=== PATIENT | female | born 1975 | race African-American/Black ===

== ENCOUNTER 2016-10-09 14:08 | Inpatient (IN) | payer OTHER ==
[2016-10-09] MEDS ORDERED: ONDANSETRON 4 MG TAB.RAPDIS PO ONE (14:20)
--- NOTE | 2016-10-09 14:20 | ER Document Report ---
ED Medical Screen (RME) - General Chief Complaint: Abdominal Pain Stated Complaint: ABDOMINAL PAIN Notes: generalized abdominal pain with sudden onset this afternoon. denies nausea, vomiting last BM today before pain onset admits to etoh and cocaine use but not cooperating with interview due to pain TRAVEL OUTSIDE OF THE [place] IN LAST 30 DAYS: No - Related Data Allergies/Adverse Reactions: amoxicillin [From Augmentin] Allergy (Verified 09/30/16 03:43) Generalized Itching cephalexin [From Keflex] Allergy (Verified 09/03/16 09:37) clavulanic acid [From Augmentin] Allergy (Verified 09/30/16 03:43) sulfamethoxazole [From Septra] Allergy (Verified 09/03/16 09:37) trimethoprim [From Septra] Allergy (Verified 09/03/16 09:37) Past Medical History - Past Medical History Cardiac Medical History: Reports: Hx Hypertension GI Medical History: Reports: Hx Gastroesophageal Reflux Disease Musculoskeltal Medical History: Reports Hx Arthritis - lupus Past Surgical History: Reports: Hx Section - 3, Other - Previous wound debridements - Immunizations Immunizations up to date: Yes Hx Diphtheria, Pertussis, Tetanus Vaccination: Yes
[2016-10-09] MEDS ORDERED: ROCURONIUM BROMIDE INJ 50 MG/5 ML VIAL IV ONE (14:29)
[2016-10-09] MEDS ORDERED: PHENYLEPHRINE HCL INJ/PF 10 MG/1 ML SDV ONE (14:29)
[2016-10-09] MEDS ORDERED: SUCCINYLCHOLINE CHLORIDE INJ 200 MG/10 ML VIAL ONE (14:29)
[2016-10-09] MEDS ORDERED: NORMAL SALINE 1000 ML 1,000 ML IV ONE (14:51)
[2016-10-09] MEDS ORDERED: ONDANSETRON HCL INJ/PF 4 MG/2 ML SDV IV ONE (14:52)
--- NOTE | 2016-10-09 14:57 | ER Document Report ---
ED GI/ - General Chief Complaint: Abdominal Pain Stated Complaint: ABDOMINAL PAIN Time seen by provider: 14:52 Mode of Arrival: Ambulatory Information source: Patient Notes: Patient is a 41-year-old female presenting to the emergency department chief complaint of abdominal pain. Patient states it began just prior to coming to the emergency department. Patient denies travel history trauma history or any sick contacts. Patient does not believe it's secondary to bad food. Patient reports nausea but no vomiting no diarrhea. Patient is moderately to severely discomforted and is not cooperative with exam secondary to pain. TRAVEL OUTSIDE OF THE [place] IN LAST 30 DAYS: No - HPI Patient complains to provider of: Abdominal pain Onset: Just prior to arrival Timing/Duration: Sudden Quality of pain: Throbbing Severity at maximum: Moderate Severity in ED: Moderate Context: denies: Bad food, Lifting, Out of the country travel, , Recent trauma, Other Location: Epigastric Vaginal bleeding (Compared to normal period): None Associated symptoms: Lightheaded, Loss of appetite, Nausea Exacerbated by: Movement Relieved by: Denies Similar symptoms previously: No Recently seen / treated by doctor: No - Related Data Allergies/Adverse Reactions: amoxicillin [From Augmentin] Allergy (Verified 09/30/16 03:43) Generalized Itching cephalexin [From Keflex] Allergy (Verified 09/03/16 09:37) clavulanic acid [From Augmentin] Allergy (Verified 09/30/16 03:43) sulfamethoxazole [From Septra] Allergy (Verified 09/03/16 09:37) trimethoprim [From Septra] Allergy (Verified 09/03/16 09:37) Past Medical History - General Information source: Patient - Social History Smoking Status: Current Every Day Smoker Cigarette use (# per day): Yes Chew tobacco use (# tins/day): No Smoking Education Provided: Yes - less than 3 minutes Frequency of alcohol use: Social Drug Abuse: Cocaine Family History: Hypertension Patient has suicidal ideation: No Patient has homicidal ideation: No - Past Medical History Cardiac Medical History: Reports: Hx Hypertension Renal/ Medical History: Reports: Hx End Stage Renal Disease GI Medical History: Reports: Hx Gastroesophageal Reflux Disease Musculoskeltal Medical History: Reports Hx Arthritis - lupus Past Surgical History: Reports: Hx Section - 3, Other - Previous wound debridements - Immunizations Immunizations up to date: Yes Hx Diphtheria, Pertussis, Tetanus Vaccination: Yes Review of Systems - Review of Systems Constitutional: No symptoms reported EENT: No symptoms reported Cardiovascular: No symptoms reported Respiratory: No symptoms reported Gastrointestinal: See HPI, Abdominal pain, Nausea. denies: Diarrhea, Vomiting Genitourinary: No symptoms reported Female Genitourinary: No symptoms reported Musculoskeletal: No symptoms reported Skin: No symptoms reported Hematologic/Lymphatic: No symptoms reported Neurological/Psychological: No symptoms reported -: Yes All other systems reviewed and negative Physical Exam - Vital signs Vitals: Temp Pulse Resp BP Pulse Ox 97.5 F 101 H 24 H 111/69 98 10/09/16 14:12 10/09/16 14:12 10/09/16 14:12 10/09/16 14:12 10/09/16 14:12 - Notes Notes: General: Patient is a 41-year-old female presenting to the emergency department chief complaint of severe abdominal pain that began just prior to presentation to the emergency department. HEENT: Normocephalic atraumatic pupils equal round reactive to light, oropharynx is patent moist mucous membranes Neck: Trachea is midline full range of motion Chest: Lungs are clear to auscultation bilaterally Cardiac: Regular rhythm and rate no gallops murmurs or rubs Abdominal: Soft moderately tender to the epigastrium bowel sounds are present but decreased, there is positive guarding, bowel sounds present Extremities: Active full range of motion x4 Skin: Warm dry intact Neurologic: Cranial nerves II through XII are grossly intact Course - Re-evaluation Re-evalutation: 10/09/16 18:04 On reevaluation patient still complaining of abdominal pain. CT with IV contrast and 20 mg by mouth Bentyl have been ordered. 10/09/16 19:03 Was contacted approximately 10 minutes ago by radiologist informed patient has perforated bowel with free air and free fluid in the abdomen. Patient did lose the IV and CAT scan and thus will have another IV placed request by surgeon for Zosyn 3.375 g IV. Patient receive 1 mg of Dilaudid IV for pain management Spoke with the surgeon who is agreeable with taking the patient to the OR.. - Vital Signs Vital signs: Temp Pulse Resp BP Pulse Ox 98.6 F 111 H 26 H 140/84 H 97 10/09/16 15:25 10/09/16 15:25 10/09/16 15:25 10/09/16 15:25 10/09/16 15:25 - Laboratory Result Diagrams: 10/09/16 15:25 10/09/16 15:25 Laboratory results interpreted by me: 10/09/16 10/09/16 10/09/16 15:25 15:25 16:04 WBC 2.8 L Hgb 9.8 L Hct 30.1 L MCH 26.1 L RDW 19.0 H Seg Neuts % (Manual) 21 L Band Neutrophils % 29 H Abs Neuts (Manual) 1.4 L Sodium 136.9 L Carbon Dioxide 20 L Urine Protein 30 H - Diagnostic Test Radiology reviewed: Reports reviewed Critical Care Note - Critical Care Note Total time excluding time spent on procedures (mins): 35 Comments: Please allow 35 minutes critical care time exclusive of separately billable procedures for multiple re-evaluations medical management and consultation with patient family members and/or external providers in care for this ill patient Discharge - Discharge Clinical Impression: Perforated bowel, Crack cocaine use SLE (systemic lupus erythematosus) Qualifiers: Systemic lupus erythematosus type: unspecified Systemic lupus erythematosus organ involvement: unspecified Qualified Code(s): M32.9 - Systemic lupus erythematosus, unspecified Condition: Serious Disposition: ADMITTED INPATIENT Admitting Provider: Surgicalist Unit Admitted: OR
[2016-10-09] MEDS ORDERED: MORPHINE SULFATE 10 MG/ML INJ IV ONE (15:36)
[2016-10-09 15:54] LABS: PROTHROMBIN TIME 12.6 SEC (11.4-15.4)
[2016-10-09 15:58] LABS: HEMATOCRIT 30.1 % (36.0-47.0); HEMOGLOBIN 9.8 g/dL (12.0-15.5); HGB HCT DIFFERENCE -0.7; MEAN CORPUSCULAR HEMOGLOBIN 26.1 pg (27.0-33.4); MEAN CORPUSCULAR HGB CONC 32.6 g/dL (32.0-36.0); MEAN CORPUSCULAR VOLUME 80 fl (80-97); RED BLOOD COUNT 3.75 10^6/uL (3.72-5.28); WHITE BLOOD COUNT 2.8 10^3/uL (4.0-10.5)
[2016-10-09 16:04] LABS: ALANINE AMINOTRANSFERASE 46 U/L (9-52); ALBUMIN 3.7 g/dL (3.5-5.0); ALKALINE PHOSPHATASE 102 U/L (38-126); ANION GAP 11 (5-19); ASPARTATE AMINO TRANSFERASE 24 U/L (14-36); BILIRUBIN,TOTAL 0.8 mg/dL (0.2-1.3); BLOOD UREA NITROGEN 12 mg/dL (7-20); CALCIUM 8.7 mg/dL (8.4-10.2); CARBON DIOXIDE 20 mmol/L (22-30); CHLORIDE 106 mmol/L (98-107); CREATININE RESULT 0.62 mg/dL (0.52-1.25); GLUCOSE 76 mg/dL (75-110); LIPASE 142.8 U/L (23-300); SODIUM 136.9 mmol/L (137-145); TOTAL PROTEIN 7.9 g/dL (6.3-8.2)
[2016-10-09 16:05] LABS: ALCOHOL < 10 mg/dL (NONE DETECTED)
[2016-10-09 16:23] LABS: APPEARANCE,URINE CLEAR; BILIRUBIN,URINE NEGATIVE (NEGATIVE); GLUCOSE, URINE NEGATIVE (NEGATIVE); KETONES,URINE NEGATIVE (NEGATIVE); LEUKOCYTE ESTERASE,URINE NEGATIVE (NEGATIVE); NITRITE,URINE NEGATIVE (NEGATIVE); PROTEIN,URINE 30 mg/dL (NEGATIVE); URINE SPECIFIC GRAVITY 1.017; UROBILINOGEN,URINE NEGATIVE mg/dL (<2.0)
[2016-10-09 16:25] LABS: BASOPHILS % (MANUAL) 0 % (0-2); EOSINOPHILS % (MANUAL) 1 % (0-6); LYMPHOCYTES % (MANUAL) 41 % (13-45); TOTAL CELLS COUNTED 100
[2016-10-09 16:36] LABS: SMUDGE CELLS PRESENT; TOXIC GRANULATION 1+
[2016-10-09 16:37] LABS: ANISOCYTOSIS 2+; PLATELET CLUMPS PRESENT; ROULEAUX 1+; TARGET CELLS 1+; TEAR DROP CELLS SLIGHT
[2016-10-09 16:37] LABS: URINE BARBITURATES SCREEN NEGATIVE; URINE METHADONE SCREEN NEGATIVE; URINE PHENCYCLIDINE SCREEN NEGATIVE
[2016-10-09 16:40] LABS: BAND NEUTROPHILS % (MANUAL) 29 % (3-5)
[2016-10-09] MEDS ORDERED: DICYCLOMINE HCL 20 MG TABLET PO ONE (17:59)
[2016-10-09] MEDS ORDERED: PIPERACILLIN/TAZOBACTAM 3.375 GM VIAL IV ONE (19:01)
[2016-10-09] MEDS ORDERED: HYDROMORPHONE HCL INJ/PF 2 MG/ML AMPULE IV ONE (19:01)
[2016-10-09] MEDS ORDERED: MIDAZOLAM 2 MG/2 ML INJ ONE (20:38)
[2016-10-09] MEDS ORDERED: PROPOFOL INJ 200 MG/20 ML VIAL IV ONE (20:38)
[2016-10-09] MEDS ORDERED: FENTANYL CITRATE INJ/PF 250 MCG/5 ML AMPULE ONE (20:38)
[2016-10-09] MEDS ORDERED: MORPHINE SULFATE 10 MG/ML INJ ONE ×2 (20:38→23:07)
[2016-10-09] MEDS ORDERED: PROPOFOL 100 ML IV ONE (22:41)
[2016-10-09] MEDS ORDERED: PROMETHAZINE HCL 25 MG TABLET PO PRN (22:58)
[2016-10-09] MEDS ORDERED: POTASSI CL 20 MEQ/D5-1/2NS 1L 1,000 ML IV PRN (22:58)
[2016-10-09] MEDS ORDERED: PHARMACY COMMUNICATION ORDER MC NR (23:00)
[2016-10-09] MEDS ORDERED: MIDAZOLAM 2 MG/2 ML INJ IV PRN (23:06)
[2016-10-09] MEDS ORDERED: NORMAL SALINE 100 ML with PANTOPRAZOLE SODIUM 80 MG IV PRN ×2 (23:09)
[2016-10-09] MEDS ORDERED: PANTOPRAZOLE SODIUM 80 MG in NORMAL SALINE 100 ML IV ONE (23:09)
[2016-10-10 00:36] LABS: HEMATOCRIT 30.1 % (36.0-47.0); HEMOGLOBIN 9.7 g/dL (12.0-15.5); MEAN CORPUSCULAR HEMOGLOBIN 25.7 pg (27.0-33.4); MEAN CORPUSCULAR HGB CONC 32.4 g/dL (32.0-36.0); MEAN CORPUSCULAR VOLUME 79 fl (80-97); RED BLOOD COUNT 3.79 10^6/uL (3.72-5.28); RED CELL DISTRIBUTION WIDTH 19.1 % (11.5-14.0); WHITE BLOOD COUNT 3.6 10^3/uL (4.0-10.5)
[2016-10-10 01:06] LABS: BAND NEUTROPHILS % (MANUAL) 40 % (3-5); BASOPHILS % (MANUAL) 0 % (0-2); EOSINOPHILS % (MANUAL) 0 % (0-6); LYMPHOCYTES % (MANUAL) 20 % (13-45); TOTAL CELLS COUNTED 100
[2016-10-10 01:07] LABS: TOXIC VACUOLATION PRESENT
[2016-10-10 01:08] LABS: TOXIC GRANULATION 1+
[2016-10-10 01:09] LABS: ACANTHOCYTES SLIGHT; ANISOCYTOSIS 2+; HYPOCHROMASIA SLIGHT; MICROCYTOSIS SLIGHT; TARGET CELLS 2+; TEAR DROP CELLS 1+
[2016-10-10 01:10] LABS: PLATELET CLUMPS PRESENT
[2016-10-10] MEDS ORDERED: PIPERACILLIN/TAZOBACTAM 3.375 GM VIAL IV ONE ×2 (01:15→01:30)
[2016-10-10] MEDS: MORPHINE SULFATE 10 MG/ML INJ IV PRN ×8 (01:46→23:50)
[2016-10-10] MEDS ORDERED: PANTOPRAZOLE SODIUM 40 MG VIAL IV PRN (01:48)
[2016-10-10] MEDS ORDERED: PANTOPRAZOLE SODIUM 80 MG in NORMAL SALINE 100 ML IV ONE (02:00)
[2016-10-10] MEDS ORDERED: PROPOFOL 100 ML IV ONE (02:20)
[2016-10-10] MEDS ORDERED: NORMAL SALINE 100 ML IV PRN (02:33)
[2016-10-10] MEDS ORDERED: INFLUENZA ADLT QUAD (36MOS+) 2016-17 VAC 0.5 ML SYR IM PRN (04:41)
[2016-10-10] MEDS ORDERED: DEXTROSE 5%-WATER 250 ML with NOREPINEPHRINE BITARTRATE 4 MG IV PRN ×2 (06:06)
--- NOTE | 2016-10-10 06:22 | PDOC CONSULTATION ---
Consultation Consult Date: 10/09/16 Attending physician:: SURGICAL SURGICALIST MD Consult reason:: Cocaine and narcotic dependence, duodenal ulcer History of Present Illness Admission Date/PCP: 10/09/16 22:50 Patient complains of: Patient presented to the ER with abdominal pain now postop intubated and sedated History of Present Illness: TAYLOR MACKEY is a 41 year old female with history of polysubstance abuse, vasculitis and chronic extensive nonhealing lower extremity leg ulcers. Patient presents to the emergency room with abdominal pain with in the hour of onset. Labs reveal bandemia CT abdomen revealed free air in the peritoneum. In the OR she's found to have a perforated duodenal ulcer. In the ICU she is intubated sedated and appears comfortable, there are no friends or family for history and subsequently is obtained by the record. Past Medical History Cardiac Medical History: Reports: Hypertension GI Medical History: Reports: Gastroesophageal Reflux Disease Musculoskeltal Medical History: Reports: Arthritis - lupus Psychiatric Medical History: Reports: Substance Abuse Hematology: Reports: Anemia Past Surgical History Past Surgical History: Reports: Section - 3, Other - Previous wound debridements Social History Smoking Status: Current Every Day Smoker Frequency of Alcohol Use: Heavy - Drinks beer daily Hx Recreational Drug Use: Yes Drugs: Cocaine Hx Prescription Drug Abuse: No - Advance Directive Resuscitation Status: Full Code Family History Family History: Hypertension Parental Family History Reviewed: Yes Children Family History Reviewed: Yes Sibling(s) Family History Reviewed.: Yes Medication/Allergy Home Medications: Hydrocodone/Acetaminophen [Hydrocodon-Acetaminophen 5-325] 1 tab PO Q4 09/17/16 Thiamine Mononitrate [Vitamin B-1] 100 mg PO DAILY 09/17/16 Duloxetine HCl [Cymbalta] 60 mg PO DAILY #30 capsule. 09/29/16 Folic Acid [Folvite 1 mg Tablet] 1 mg PO DAILY #30 tablet 09/29/16 Hydralazine HCl [Apresoline 50 mg Tablet] 50 mg PO Q8 #90 tablet 09/29/16 Losartan Potassium [Cozaar 50 mg Tablet] 100 mg PO DAILY #30 tablet 09/29/16 Oxycodone HCl/Acetaminophen [Percocet 10-325 Mg Tablet] 1 each PO Q4HP PRN #20 tablet 09/29/16 Prednisone [Deltasone 10 mg Tablet] 10 mg PO ASDIR PRN #10 tablet 09/29/16 Allergies/Adverse Reactions: amoxicillin [From Augmentin] Allergy (Verified 10/09/16 19:42) Generalized Itching cephalexin [From Keflex] Allergy (Verified 10/09/16 19:42) clavulanic acid [From Augmentin] Allergy (Verified 10/09/16 19:42) sulfamethoxazole [From Septra] Allergy (Verified 10/09/16 19:42) trimethoprim [From Septra] Allergy (Verified 10/09/16 19:42) Review of Systems ROS unobtainable: Due to endotracheal tube Physical Exam Vital Signs: Temp Pulse Resp BP Pulse Ox 98.9 F 104 H 14 98/68 L 100 10/10/16 00:13 10/10/16 00:13 10/10/16 01:17 10/10/16 04:47 10/10/16 04:47 Intake & Output 10/08/16 10/09/16 10/10/16 11:59 11:59 11:59 Output Total 600 Balance -600 General appearance: PRESENT: no acute distress Head exam: PRESENT: atraumatic, normocephalic Eye exam: PRESENT: conjunctiva pink, EOMI, PERRLA. ABSENT: scleral icterus Ear exam: PRESENT: normal external ear exam Mouth exam: PRESENT: moist, tongue midline Teeth exam: PRESENT: poor dentation Neck exam: ABSENT: carotid bruit, JVD, lymphadenopathy, thyromegaly Respiratory exam: PRESENT: clear to auscultation rei. ABSENT: rales, rhonchi, wheezes Pulses: PRESENT: normal dorsalis pedis pul Vascular exam: PRESENT: normal capillary refill GI/Abdominal exam: PRESENT: distended, firm, hypoactive bowel sounds Rectal exam: PRESENT: deferred Extremities exam: PRESENT: other - Large bilateral lower extremity chronic ulcers right leg 13 x 13 with clean borders but eroded tendons visible, left leg with near circumferential 7 x 5 cm ulcer with clean borders and visible tendons Musculoskeletal exam: PRESENT: other - Large bilateral lower extremity chronic ulcers right leg 13 x 13 with clean borders but eroded tendons visible, left leg with near circumferential 7 x 5 cm ulcer with clean borders and visible tendons Neurological exam: PRESENT: other - Intubated and sedated Skin exam: PRESENT: other - Large bilateral lower extremity chronic ulcers right leg 13 x 13 with clean borders but eroded tendons visible, left leg with near circumferential 7 x 5 cm ulcer with clean borders and visible tendons Results Laboratory Results: 10/09/16 23:50 10/09/16 23:50 WBC 3.6 L RBC 3.79 Hgb 9.7 L Hct 30.1 L MCV 79 L MCH 25.7 L MCHC 32.4 RDW 19.1 H Plt Count 212 Seg Neutrophils % Not Reportable Lymphocytes % Not Reportable Monocytes % Not Reportable Eosinophils % Not Reportable Basophils % Not Reportable Absolute Neutrophils Not Reportable Absolute Lymphocytes Not Reportable Absolute Monocytes Not Reportable Absolute Eosinophils Not Reportable Absolute Basophils Not Reportable Impressions: Chest X-Ray 10/09/16 00:00 IMPRESSION: Bibasilar consolidation. Small bilateral pleural effusions. Endotracheal tube tip overlies the mid trachea. Right IJ central venous catheter tip overlies the right atrium. Nasogastric catheter overlies the body of the stomach. Drainage catheter is present over the epigastric region. Abdomen CT 10/09/16 18:02 IMPRESSION: Intraperitoneal gas is present across the upper abdomen as well as in the gallbladder fossa. Diffuse inflammatory changes and moderately large amount of free fluid are present throughout the abdomen and pelvis. Assessment & Plan - Diagnosis (1) Duodenal ulcer Is this a current diagnosis for this admission?: YesPlan: Unclear history with postop repair I'll initiate IV Protonix bolus followed by 72 hour protocol (2) Crack cocaine use Is this a current diagnosis for this admission?: YesPlan: Suggest benzodiazepine sedation avoiding beta mary (3) Perforated bowel Is this a current diagnosis for this admission?: YesPlan: Given sepsis by hypotension and bandemia strongly suggest coverage of GI daron with Carbapenem, cultures and repeat labs - Time Time Spent: 50 to 70 Minutes
[2016-10-10 06:26] LABS: HEMATOCRIT 27.9 % (36.0-47.0); HEMOGLOBIN 9.2 g/dL (12.0-15.5); HGB HCT DIFFERENCE -0.3; MEAN CORPUSCULAR HGB CONC 32.8 g/dL (32.0-36.0); MEAN CORPUSCULAR VOLUME 79 fl (80-97); RED BLOOD COUNT 3.53 10^6/uL (3.72-5.28); RED CELL DISTRIBUTION WIDTH 19.5 % (11.5-14.0); WHITE BLOOD COUNT 6.5 10^3/uL (4.0-10.5)
[2016-10-10 06:41] LABS: ALANINE AMINOTRANSFERASE 32 U/L (9-52); ALBUMIN 2.4 g/dL (3.5-5.0); ALKALINE PHOSPHATASE 54 U/L (38-126); ANION GAP 7 (5-19); ASPARTATE AMINO TRANSFERASE 22 U/L (14-36); BILIRUBIN,TOTAL 0.4 mg/dL (0.2-1.3); BLOOD UREA NITROGEN 10 mg/dL (7-20); CALCIUM 7.3 mg/dL (8.4-10.2); CARBON DIOXIDE 21 mmol/L (22-30); CHLORIDE 109 mmol/L (98-107); CREATININE RESULT 0.57 mg/dL (0.52-1.25); GLUCOSE 87 mg/dL (75-110); PHOSPHORUS 4.5 mg/dL (2.5-4.5); POTASSIUM 3.9 mmol/L (3.6-5.0); SODIUM 136.6 mmol/L (137-145); TOTAL PROTEIN 5.4 g/dL (6.3-8.2)
[2016-10-10] MEDS ORDERED: NOREPINEPHRINE BITARTRATE INJ/PF 4 MG/4 ML SDV IV PRN (06:49)
[2016-10-10 06:50] LABS: MAGNESIUM 1.1 mg/dL (1.6-2.3)
[2016-10-10] MEDS: PROPOFOL 100 ML IV SCH ×2 (07:24→10:31)
[2016-10-10] MEDS: MAGNESIUM SULFATE/D5W 100 ML IV SCH ×2 (08:12→09:35)
[2016-10-10] MEDS: ENOXAPARIN SODIUM INJ 30 MG/0.3 ML DISP.SYRIN SUBCUT SCH (08:13)
[2016-10-10] MEDS: PIPERACILLIN SODIUM/TAZOBACTAM 3.375 GM in NORMAL SALINE 100 ML IV SCH ×2 (09:36→17:48)
--- NOTE | 2016-10-10 09:58 | PDOC PROGRESS REPORT ---
Subjective Progress Note for:: 10/10/16 Subjective:: Patient is intubated but is able to nod yes or no. She reports that she is not having abdominal pain. Physical Exam Vital Signs: Temp Pulse Resp BP Pulse Ox 99.0 F 103 H 14 114/78 100 10/10/16 08:00 10/10/16 06:54 10/10/16 01:17 10/10/16 08:16 10/10/16 08:50 Intake & Output 10/09/16 10/10/16 10/11/16 06:59 06:59 06:59 Output Total 670 150 Balance -670 -150 Weight 58.8 kg General appearance: PRESENT: no acute distress Eye exam: PRESENT: conjunctiva pink Mouth exam: PRESENT: other - ET tube in place Neck exam: ABSENT: JVD Respiratory exam: PRESENT: clear to auscultation rei. ABSENT: rales, rhonchi, wheezes Cardiovascular exam: PRESENT: RRR. ABSENT: diastolic murmur, rubs, systolic murmur GI/Abdominal exam: PRESENT: other - Surgical dressing in place in the midline Rectal exam: PRESENT: deferred Extremities exam: ABSENT: calf tenderness, clubbing, pedal edema Neurological exam: PRESENT: alert, awake Psychiatric exam: PRESENT: appropriate affect Skin exam: PRESENT: dry, intact, warm. ABSENT: cyanosis, rash Results Laboratory Results: 10/10/16 06:18 10/10/16 06:18 10/09/16 10/10/16 10/10/16 23:50 06:18 06:18 WBC 3.6 L 6.5 RBC 3.79 3.53 L Hgb 9.7 L 9.2 L Hct 30.1 L 27.9 L MCV 79 L 79 L MCH 25.7 L 26.0 L MCHC 32.4 32.8 RDW 19.1 H 19.5 H Plt Count 212 201 Seg Neutrophils % Not Reportable Lymphocytes % Not Reportable Monocytes % Not Reportable Eosinophils % Not Reportable Basophils % Not Reportable Absolute Neutrophils Not Reportable Absolute Lymphocytes Not Reportable Absolute Monocytes Not Reportable Absolute Eosinophils Not Reportable Absolute Basophils Not Reportable Sodium 136.6 L Potassium 3.9 Chloride 109 H Carbon Dioxide 21 L Anion Gap 7 BUN 10 Creatinine 0.57 Est GFR ( Amer) > 60 Est GFR (Non-Af Amer) > 60 Glucose 87 Calcium 7.3 L Phosphorus 4.5 Magnesium 1.1 L* Total Bilirubin 0.4 AST 22 ALT 32 Alkaline Phosphatase 54 Total Protein 5.4 L Albumin 2.4 L Impressions: Chest X-Ray 10/09/16 00:00 IMPRESSION: Bibasilar consolidation. Small bilateral pleural effusions. Endotracheal tube tip overlies the mid trachea. Right IJ central venous catheter tip overlies the right atrium. Nasogastric catheter overlies the body of the stomach. Drainage catheter is present over the epigastric region. Abdomen CT 10/09/16 18:02 IMPRESSION: Intraperitoneal gas is present across the upper abdomen as well as in the gallbladder fossa. Diffuse inflammatory changes and moderately large amount of free fluid are present throughout the abdomen and pelvis. Assessment & Plan - Diagnosis (1) Hypotension Is this a current diagnosis for this admission?: YesPlan: The patient initially had some hypotension and vasopressors were ordered but were not started. Her blood pressure has remained stable. (2) Perforated bowel Is this a current diagnosis for this admission?: YesPlan: This was secondary to a duodenal ulcer which was surgically repaired. (3) Duodenal ulcer Is this a current diagnosis for this admission?: YesPlan: Patient had surgery last night for repair of this (4) SLE (systemic lupus erythematosus) Qualifiers: Systemic lupus erythematosus type: unspecified Systemic lupus erythematosus organ involvement: unspecified Qualified Code(s): M32.9 - Systemic lupus erythematosus, unspecified Is this a current diagnosis for this admission?: YesPlan: Patient has complications with vasculitis of her legs. (5) Vasculitis Is this a current diagnosis for this admission?: YesPlan: Patient has problems with vasculitis of the lower extremities with large wounds. (6) Bilateral leg ulcer Is this a current diagnosis for this admission?: YesPlan: Secondary to vasculitis. We'll continue local wound care. (7) Anemia of chronic disease Is this a current diagnosis for this admission?: YesPlan: Hemoglobin has remained stable. (8) Essential hypertension Is this a current diagnosis for this admission?: YesPlan: We'll hold antihypertensives for now. (9) Gastroesophageal reflux disease Qualifiers: Esophagitis presence: without esophagitis Qualified Code(s): K21.9 - Gastro-esophageal reflux disease without esophagitis Is this a current diagnosis for this admission?: YesPlan: Patient had a duodenal ulcer. (10) Crack cocaine use Is this a current diagnosis for this admission?: YesPlan: The patient tested positive for cocaine. This is contributing to some of the problems with her vasculitis of her legs. - Time Time Spent with patient: 35 or more minutes - Inpatient Certification Medical Necessity: Need Close Monitoring Due to Risk of Patient Decompensation, Need For IV Fluids, Need for IV Antibiotics - Plan Summary Plan Summary: Patient is doing well from a respiratory standpoint and we can hopefully extubate later today.
[2016-10-10] MEDS ORDERED: PANTOPRAZOLE SODIUM 40 MG VIAL IV SCH (10:00)
[2016-10-10] MEDS: NORMAL SALINE 100 ML with PANTOPRAZOLE SODIUM 80 MG IV PRN ×4 (10:31→20:51)
--- NOTE | 2016-10-10 14:46 | PDOC PROGRESS REPORT ---
Subjective Progress Note for:: 10/10/16 Subjective:: Feeling better less pain Physical Exam Vital Signs: Temp Pulse Resp BP Pulse Ox 100.7 F H 120 H 20 146/114 H 79 L 10/10/16 12:00 10/10/16 13:00 10/10/16 13:00 10/10/16 14:02 10/10/16 14:01 Intake & Output 10/09/16 10/10/16 10/11/16 06:59 06:59 06:59 Output Total 670 960 Balance -670 -960 Weight 58.8 kg Additional comments: S/P Explor lap , repair of perforated Duodenal ulcer Extubated Stable Continue IV ABX ICU monitoring today Results Laboratory Results: 10/10/16 06:18 10/10/16 06:18 10/09/16 10/10/16 10/10/16 23:50 06:18 06:18 WBC 3.6 L 6.5 RBC 3.79 3.53 L Hgb 9.7 L 9.2 L Hct 30.1 L 27.9 L MCV 79 L 79 L MCH 25.7 L 26.0 L MCHC 32.4 32.8 RDW 19.1 H 19.5 H Plt Count 212 201 Seg Neutrophils % Not Reportable Lymphocytes % Not Reportable Monocytes % Not Reportable Eosinophils % Not Reportable Basophils % Not Reportable Absolute Neutrophils Not Reportable Absolute Lymphocytes Not Reportable Absolute Monocytes Not Reportable Absolute Eosinophils Not Reportable Absolute Basophils Not Reportable Sodium 136.6 L Potassium 3.9 Chloride 109 H Carbon Dioxide 21 L Anion Gap 7 BUN 10 Creatinine 0.57 Est GFR ( Amer) > 60 Est GFR (Non-Af Amer) > 60 Glucose 87 Calcium 7.3 L Phosphorus 4.5 Magnesium 1.1 L* Total Bilirubin 0.4 AST 22 ALT 32 Alkaline Phosphatase 54 Total Protein 5.4 L Albumin 2.4 L Impressions: Chest X-Ray 10/09/16 00:00 IMPRESSION: Bibasilar consolidation. Small bilateral pleural effusions. Endotracheal tube tip overlies the mid trachea. Right IJ central venous catheter tip overlies the right atrium. Nasogastric catheter overlies the body of the stomach. Drainage catheter is present over the epigastric region. Abdomen CT 10/09/16 18:02 IMPRESSION: Intraperitoneal gas is present across the upper abdomen as well as in the gallbladder fossa. Diffuse inflammatory changes and moderately large amount of free fluid are present throughout the abdomen and pelvis. Assessment & Plan - Plan Summary Plan Summary: ICU monitoring today keep NG tube IV protonix and IV ABX Was on 10 mg prednisone for ? Lupus, discontinued
[2016-10-10] MEDS ORDERED: HYDRALAZINE HCL INJ/PF 20 MG/1 ML SDV IV PRN (15:41)
[2016-10-10 15:46] LABS: HEMATOCRIT 26.9 % (36.0-47.0); HEMOGLOBIN 8.9 g/dL (12.0-15.5); HGB HCT DIFFERENCE -0.2; MEAN CORPUSCULAR HEMOGLOBIN 26.1 pg (27.0-33.4); MEAN CORPUSCULAR VOLUME 79 fl (80-97); RED CELL DISTRIBUTION WIDTH 18.9 % (11.5-14.0)
[2016-10-10 16:11] LABS: ANION GAP 7 (5-19); BLOOD UREA NITROGEN 8 mg/dL (7-20); CALCIUM 7.4 mg/dL (8.4-10.2); CARBON DIOXIDE 20 mmol/L (22-30); CHLORIDE 107 mmol/L (98-107); CREATININE RESULT 0.57 mg/dL (0.52-1.25); GLUCOSE 85 mg/dL (75-110); POTASSIUM 4.1 mmol/L (3.6-5.0); SODIUM 133.8 mmol/L (137-145)
[2016-10-10] MEDS ORDERED: MAGNESIUM SULFATE/D5W 1 GM/100 ML RTUPB IV ONE (17:43)
[2016-10-10] MEDS: NORMAL SALINE 1000 ML 1,000 ML IV PRN ×2 (17:47→20:52)
--- NOTE | 2016-10-10 18:52 | OPERATIVE REPORT E ---
Operative Report NAME: TAYLOR MACKEY : 1975 AGE: 41Y DATE OF SURGERY: 10/09/2016 ROOM: 608 PREOPERATIVE DIAGNOSIS: The patient presented with peritonitis with hollow viscus perforation confirmed on imaging studies and also clinical examination peritonitis. POSTOPERATIVE DIAGNOSES: 1. Perforated duodenal ulcer with intra-abdominal abscess. 2. Extremely dehydrated with very difficult intravenous access. OPERATION PERFORMED: 1. Exploratory laparotomy with repair of perforated duodenal ulcer with omental patch. 2. Drainage of intra-abdominal abscess with peritoneal washout. 3. Insertion of right internal jugular vein central venous catheter. SURGEON: OSIEL FONSECA M.D. ANESTHESIA: General. SPECIMENS: None. HISTORY AND INDICATIONS: As described. PROCEDURE IN DETAIL: General anesthesia. Supine position. She had a Kaiser catheter. Antibiotics started with Zosyn. The abdomen was cleaned and draped for sterile field. mID LINE INCISION MADE after time-out. A large amount of seropurulent and bilious fluid in the abdomen diffusely, which was all completely drained and then washed out. After that, abdominal cavity explored methodically. Basically in the first part of the abdomen, there was an ulcer with close to a centimeter perforation, along with some on the peritoneal wall and abdominal wall. Other than that, the rest of the small intestine and large intestine were all completely normal. Proceeded with repair of the duodenal ulcer by taking 2-0 silk sutures in vertical fashion .2-0 silk and then 1-0 Vicryl taken between also and then these sutures were tied, closing the ulcer. After that, on top of it a LIVE omental patch was placed and this was secured in place by using same sutures, tying on top of the omentum repaired ulcer. After that, abdominal cavity copiously irrigated with almost 12 L of warm normal saline until the effluent was absolutely clear. After that, hemostasis and instrument were checked, which was correct and then a J-P drain was placed around duodenum. The fascia and skin were reapproximated by lorraine. Dressings were applied. Then I performed a central venous access on the right internal jugular vein, which was done after cleaning and draping the area. The right internal jugular vein was identified by ultrasound and by image guidance. The right internal jugular vein was accessed by using the Seldinger technique. A guidewire was passed into the superior vena cava and then the tract was dilated. After that, a central venous catheter was inserted into the superior vena cava, triple-lumen catheter placed at approximately the 60 cm level. Excellent venous flow in all three ports. These were flushed with heparin solution. Catheter was secured in place. Dressing applied. The patient was stable throughout the procedure. Transferred to ICU in stable condition . DICTATING PHYSICIAN: OSIEL FONSECA M.D. [id number] PHY#: [id number] ID: [id number] JOB#: [id number] ACCT: [id number] cc:OSIEL FONSECA M.D. > MTDD
--- NOTE | 2016-10-10 18:57 | HISTORY AND PHYSICAL E ---
History and Physical NAME: TAYLOR MACKEY : 1975 AGE: 41Y ADMITTED: 10/09/2016 ROOM: 608 CHIEF COMPLAINT: The patient presented to the emergency room with a history of severe acute abdominal pain of 1 day onset. HISTORY OF PRESENT ILLNESS: The patient complains of pain that started suddenly and then diffused and the pain is so severe that she is unable to take a deep breath also. PAST MEDICAL HISTORY: Significant for: 1. Hypertension. 2. Systemic lupus erythematosus. 3. History of skin ulcerations. 4. Vasculitis. MEDICATIONS: Include antihypertensives and prednisone for lupus. SURGICAL HISTORY: She for the lower extremities for ulcers. FAMILY HISTORY: Nothing relevant. SOCIAL HISTORY: He is an occasional smoker with occasional cocaine as per the patient. Occasional alcohol. REVIEW OF SYSTEMS: GASTROINTESTINAL SYSTEM: Patient denies any history of peptic ulcer disease or diverticulitis in the past. No history of colorectal cancer. The patient has not listed any abdominal history in the past. CLINICAL EXAMINATION: GENERAL: She looks alert and oriented but looks sick with dehydration. VITAL SIGNS: Tachycardiac up to 110. Blood pressure about 110-130's. NECK EXAMINATION: No lymphadenopathy, no masses. HEAD: Generalized pigmentation, skin rashes. RESPIRATORY EXAMINATION: Lungs clear. CARDIOVASCULAR EXAMINATION: S1, S2 regular. No murmurs, gallops. ABDOMINAL EXAMINATION: Distended, diffusely tender with rebound tenderness. Bowel sounds are sluggish. EXTREMITIES: Warm and perfuse. DIAGNOSTICS: CT scan revealed free air in abdomen with some food in abdomen. IMPRESSION: Hollow viscus perforation, uncertain whether the site of the perforation could be gastric due to the steroid intake or duodenal ulcer, possibly colonic or possibly ischemic colitis. In any case, the plan is immediate optimization with IV fluids, IV antibiotics started for emergency exploratory laparotomy. Explained to the patient about the need for the operating intervention. Essentially emergency possible to find bowel perforation. Possibility re-operation, possible colostomy. Patient understands completely and the patient has no family around. Patient was sure of the plan of care even though there was no family and no contact noted of family at this point. DICTATING PHYSICIAN: OSIEL FONSECA M.D. [id number] PHY#: [id number] ID: [id number] JOB#: [id number] ACCT: [id number] cc:LOCAL, NO MKetty > CLEMENTE
[2016-10-11] MEDS: PIPERACILLIN SODIUM/TAZOBACTAM 3.375 GM in NORMAL SALINE 100 ML IV SCH ×3 (02:34→17:02)
[2016-10-11] MEDS: MORPHINE SULFATE 10 MG/ML INJ IV PRN ×7 (04:26→21:54)
[2016-10-11] MEDS: ACETAMINOPHEN 650 MG SUPP.RECT PR PRN ×2 (04:27→23:55)
[2016-10-11 04:33] LABS: HEMATOCRIT 25.2 % (36.0-47.0); HEMOGLOBIN 8.2 g/dL (12.0-15.5); HGB HCT DIFFERENCE -0.6; MEAN CORPUSCULAR HEMOGLOBIN 25.8 pg (27.0-33.4); MEAN CORPUSCULAR HGB CONC 32.5 g/dL (32.0-36.0); MEAN CORPUSCULAR VOLUME 80 fl (80-97); RED BLOOD COUNT 3.18 10^6/uL (3.72-5.28); RED CELL DISTRIBUTION WIDTH 18.9 % (11.5-14.0); WHITE BLOOD COUNT 10.4 10^3/uL (4.0-10.5)
[2016-10-11 04:53] LABS: ANION GAP 8 (5-19); BLOOD UREA NITROGEN 5 mg/dL (7-20); CALCIUM 7.4 mg/dL (8.4-10.2); CARBON DIOXIDE 19 mmol/L (22-30); CHLORIDE 108 mmol/L (98-107); CREATININE RESULT 0.62 mg/dL (0.52-1.25); GLUCOSE 60 mg/dL (75-110); POTASSIUM 3.7 mmol/L (3.6-5.0); SODIUM 135.2 mmol/L (137-145)
[2016-10-11] MEDS: NORMAL SALINE 100 ML with PANTOPRAZOLE SODIUM 80 MG IV PRN ×4 (05:13→17:02)
[2016-10-11] MEDS: NORMAL SALINE 1000 ML 1,000 ML IV PRN (05:13)
[2016-10-11 05:15] LABS: BAND NEUTROPHILS % (MANUAL) 19 % (3-5); BASOPHILS % (MANUAL) 0 % (0-2); EOSINOPHILS % (MANUAL) 0 % (0-6); LYMPHOCYTES % (MANUAL) 10 % (13-45); TOTAL CELLS COUNTED 100
[2016-10-11 05:18] LABS: ANISOCYTOSIS 2+; BURR CELLS SLIGHT; HYPOCHROMASIA SLIGHT; MICROCYTOSIS SLIGHT; TEAR DROP CELLS 1+
[2016-10-11 05:19] LABS: TARGET CELLS 3+
[2016-10-11] MEDS ORDERED: DEXTROSE 50%-WATER 25 GM/50 ML DISP.SYRIN IV ONE (05:55)
[2016-10-11] MEDS: ENOXAPARIN SODIUM INJ 30 MG/0.3 ML DISP.SYRIN SUBCUT SCH (08:21)
[2016-10-11] MEDS ORDERED: GLUCAGON,HUMAN RECOMB 1 MG INJ IM PRN (08:58)
[2016-10-11] MEDS ORDERED: DEXTROSE 40% GEL 15 GM TUBE X 2 PO PRN (08:58)
[2016-10-11] MEDS ORDERED: DEXTROSE 50%-WATER SYRINGE 12.5 GM/25 ML DOSE IV PRN (08:58)
[2016-10-11] MEDS ORDERED: DEXTROSE 40% GEL 15 GM TUBE PO PRN (08:58)
--- NOTE | 2016-10-11 10:34 | PDOC PROGRESS REPORT ---
Subjective Progress Note for:: 10/11/16 Subjective:: Patient was extubated yesterday without difficulty. She reports that she is having some abdominal pain but reports is tolerable. Physical Exam Vital Signs: Temp Pulse Resp BP Pulse Ox 99.0 F 96 11 L 116/77 100 10/11/16 08:00 10/11/16 10:00 10/11/16 10:02 10/11/16 10:02 10/11/16 10:02 Intake & Output 10/10/16 10/11/16 10/12/16 06:59 06:59 06:59 Intake Total 3658 Output Total 670 5861 740 Balance -670 33 -740 Weight 58.8 kg 56.5 kg General appearance: PRESENT: no acute distress Eye exam: PRESENT: conjunctiva pink Ear exam: PRESENT: normal external ear exam Mouth exam: PRESENT: moist, tongue midline Neck exam: ABSENT: JVD Respiratory exam: PRESENT: clear to auscultation rei. ABSENT: rales, rhonchi, wheezes Cardiovascular exam: PRESENT: RRR. ABSENT: diastolic murmur, rubs, systolic murmur GI/Abdominal exam: PRESENT: other - Surgical dressing in place the midline dry and intact. Extremities exam: PRESENT: other - Patient has dressings in place on her bilateral legs.. ABSENT: calf tenderness, clubbing, pedal edema Neurological exam: PRESENT: alert, awake, oriented to person, oriented to place , oriented to time Psychiatric exam: PRESENT: appropriate affect Skin exam: PRESENT: other - Dressings in place on her bilateral legs. Results Laboratory Results: 10/11/16 04:24 10/11/16 04:24 10/10/16 10/10/16 10/11/16 15:00 15:00 04:24 WBC 7.0 10.4 RBC 3.40 L 3.18 L Hgb 8.9 L 8.2 L Hct 26.9 L 25.2 L MCV 79 L 80 MCH 26.1 L 25.8 L MCHC 33.0 32.5 RDW 18.9 H 18.9 H Plt Count 177 194 Seg Neutrophils % Not Reportable Lymphocytes % Not Reportable Monocytes % Not Reportable Eosinophils % Not Reportable Basophils % Not Reportable Absolute Neutrophils Not Reportable Absolute Lymphocytes Not Reportable Absolute Monocytes Not Reportable Absolute Eosinophils Not Reportable Absolute Basophils Not Reportable Sodium 133.8 L Potassium 4.1 Chloride 107 Carbon Dioxide 20 L Anion Gap 7 BUN 8 Creatinine 0.57 Est GFR ( Amer) > 60 Est GFR (Non-Af Amer) > 60 Glucose 85 Calcium 7.4 L Magnesium 10/11/16 10/11/16 04:24 04:24 WBC RBC Hgb Hct MCV MCH MCHC RDW Plt Count Seg Neutrophils % Lymphocytes % Monocytes % Eosinophils % Basophils % Absolute Neutrophils Absolute Lymphocytes Absolute Monocytes Absolute Eosinophils Absolute Basophils Sodium 135.2 L Potassium 3.7 Chloride 108 H Carbon Dioxide 19 L Anion Gap 8 BUN 5 L Creatinine 0.62 Est GFR ( Amer) > 60 Est GFR (Non-Af Amer) > 60 Glucose 60 L Calcium 7.4 L Magnesium 1.8 Impressions: Chest X-Ray 10/09/16 00:00 IMPRESSION: Bibasilar consolidation. Small bilateral pleural effusions. Endotracheal tube tip overlies the mid trachea. Right IJ central venous catheter tip overlies the right atrium. Nasogastric catheter overlies the body of the stomach. Drainage catheter is present over the epigastric region. Abdomen CT 10/09/16 18:02 IMPRESSION: Intraperitoneal gas is present across the upper abdomen as well as in the gallbladder fossa. Diffuse inflammatory changes and moderately large amount of free fluid are present throughout the abdomen and pelvis. Assessment & Plan - Diagnosis (1) Hypotension Is this a current diagnosis for this admission?: YesPlan: The patient initially had some hypotension which has resolved. Her blood pressure has remained stable. (2) Perforated bowel Is this a current diagnosis for this admission?: YesPlan: This was secondary to a duodenal ulcer which was surgically repaired. (3) Duodenal ulcer Is this a current diagnosis for this admission?: YesPlan: Patient had surgery for repair of this (4) SLE (systemic lupus erythematosus) Qualifiers: Systemic lupus erythematosus type: unspecified Systemic lupus erythematosus organ involvement: unspecified Qualified Code(s): M32.9 - Systemic lupus erythematosus, unspecified Is this a current diagnosis for this admission?: YesPlan: Patient has complications with vasculitis of her legs. (5) Vasculitis Is this a current diagnosis for this admission?: YesPlan: Patient has problems with vasculitis of the lower extremities with large wounds. (6) Bilateral leg ulcer Is this a current diagnosis for this admission?: YesPlan: Secondary to vasculitis. We'll continue local wound care. (7) Anemia of chronic disease Is this a current diagnosis for this admission?: YesPlan: Hemoglobin has remained stable. (8) Essential hypertension Is this a current diagnosis for this admission?: YesPlan: We'll hold antihypertensives for now. (9) Gastroesophageal reflux disease Qualifiers: Esophagitis presence: without esophagitis Qualified Code(s): K21.9 - Gastro-esophageal reflux disease without esophagitis Is this a current diagnosis for this admission?: YesPlan: Patient had a duodenal ulcer. (10) Crack cocaine use Is this a current diagnosis for this admission?: YesPlan: The patient tested positive for cocaine. This is contributing to some of the problems with her vasculitis of her legs. - Time Time Spent with patient: 25-34 minutes - Inpatient Certification Medical Necessity: Need Close Monitoring Due to Risk of Patient Decompensation, Need for IV Antibiotics - Plan Summary Plan Summary: We'll transfer out of the ICU to the floor today.
[2016-10-11] MEDS: DEXTROSE 50%-WATER SYRINGE 25 GM/50 ML DOSE IV PRN ×2 (11:55→17:24)
--- NOTE | 2016-10-11 14:56 | PDOC PROGRESS REPORT ---
Subjective Progress Note for:: 10/11/16 Physical Exam Vital Signs: Temp Pulse Resp BP Pulse Ox 98.6 F 106 H 20 130/78 H 82 L 10/11/16 12:00 10/11/16 12:00 10/11/16 14:00 10/11/16 12:00 10/11/16 14:00 Intake & Output 10/10/16 10/11/16 10/12/16 06:59 06:59 06:59 Intake Total 3658 Output Total 670 7304 1211 Balance -670 33 -1210 Weight 58.8 kg 56.5 kg GI/Abdominal exam: PRESENT: soft Results Laboratory Results: 10/11/16 04:24 10/11/16 04:24 10/10/16 10/10/16 10/11/16 15:00 15:00 04:24 WBC 7.0 10.4 RBC 3.40 L 3.18 L Hgb 8.9 L 8.2 L Hct 26.9 L 25.2 L MCV 79 L 80 MCH 26.1 L 25.8 L MCHC 33.0 32.5 RDW 18.9 H 18.9 H Plt Count 177 194 Seg Neutrophils % Not Reportable Lymphocytes % Not Reportable Monocytes % Not Reportable Eosinophils % Not Reportable Basophils % Not Reportable Absolute Neutrophils Not Reportable Absolute Lymphocytes Not Reportable Absolute Monocytes Not Reportable Absolute Eosinophils Not Reportable Absolute Basophils Not Reportable Sodium 133.8 L Potassium 4.1 Chloride 107 Carbon Dioxide 20 L Anion Gap 7 BUN 8 Creatinine 0.57 Est GFR ( Amer) > 60 Est GFR (Non-Af Amer) > 60 Glucose 85 Calcium 7.4 L Magnesium 10/11/16 10/11/16 04:24 04:24 WBC RBC Hgb Hct MCV MCH MCHC RDW Plt Count Seg Neutrophils % Lymphocytes % Monocytes % Eosinophils % Basophils % Absolute Neutrophils Absolute Lymphocytes Absolute Monocytes Absolute Eosinophils Absolute Basophils Sodium 135.2 L Potassium 3.7 Chloride 108 H Carbon Dioxide 19 L Anion Gap 8 BUN 5 L Creatinine 0.62 Est GFR ( Amer) > 60 Est GFR (Non-Af Amer) > 60 Glucose 60 L Calcium 7.4 L Magnesium 1.8 Impressions: Chest X-Ray 10/09/16 00:00 IMPRESSION: Bibasilar consolidation. Small bilateral pleural effusions. Endotracheal tube tip overlies the mid trachea. Right IJ central venous catheter tip overlies the right atrium. Nasogastric catheter overlies the body of the stomach. Drainage catheter is present over the epigastric region. Abdomen CT 10/09/16 18:02 IMPRESSION: Intraperitoneal gas is present across the upper abdomen as well as in the gallbladder fossa. Diffuse inflammatory changes and moderately large amount of free fluid are present throughout the abdomen and pelvis. Assessment & Plan - Plan Summary Plan Summary: Doing well transfer to stepdown Keep NG tube today Continue IV ABX and IV Protonix
[2016-10-12] MEDS: MORPHINE SULFATE 10 MG/ML INJ IV PRN ×8 (00:10→23:09)
[2016-10-12] MEDS: DEXTROSE 5%-NORMAL SALINE 1,000 ML IV SCH ×2 (01:33→10:20)
[2016-10-12] MEDS: PIPERACILLIN SODIUM/TAZOBACTAM 3.375 GM in NORMAL SALINE 100 ML IV SCH ×3 (01:35→19:04)
--- NOTE | 2016-10-12 07:12 | PDOC PROGRESS REPORT ---
Subjective Progress Note for:: 10/12/16 Physical Exam Vital Signs: Temp Pulse Resp BP Pulse Ox 99.6 F 99 22 H 101/84 100 10/12/16 03:48 10/11/16 22:00 10/12/16 05:00 10/11/16 23:55 10/12/16 05:00 Intake & Output 10/11/16 10/12/16 10/13/16 06:59 06:59 06:59 Intake Total 3658 1682 Output Total 3622 9794 Balance 33 -2543 Weight 56.5 kg 56.8 kg Results Impressions: Chest X-Ray 10/09/16 00:00 IMPRESSION: Bibasilar consolidation. Small bilateral pleural effusions. Endotracheal tube tip overlies the mid trachea. Right IJ central venous catheter tip overlies the right atrium. Nasogastric catheter overlies the body of the stomach. Drainage catheter is present over the epigastric region. Abdomen CT 10/09/16 18:02 IMPRESSION: Intraperitoneal gas is present across the upper abdomen as well as in the gallbladder fossa. Diffuse inflammatory changes and moderately large amount of free fluid are present throughout the abdomen and pelvis. Assessment & Plan - Plan Summary Plan Summary: S/P Explor lap for perf Duodenal ulcer, REPAIR WITH PERITONEAL WASH Stable awaiting transfer to floor Still has Ileus Keep NG tube today
[2016-10-12 07:24] LABS: ANION GAP 8 (5-19); BLOOD UREA NITROGEN 3 mg/dL (7-20); CALCIUM 7.5 mg/dL (8.4-10.2); CARBON DIOXIDE 20 mmol/L (22-30); CHLORIDE 110 mmol/L (98-107); CREATININE RESULT 0.57 mg/dL (0.52-1.25); GLUCOSE 88 mg/dL (75-110); MAGNESIUM 1.5 mg/dL (1.6-2.3); SODIUM 138.3 mmol/L (137-145)
[2016-10-12 07:27] LABS: POTASSIUM 2.9 mmol/L (3.6-5.0)
[2016-10-12 07:32] LABS: HEMATOCRIT 21.4 % (36.0-47.0); HGB HCT DIFFERENCE 0.2; MEAN CORPUSCULAR HEMOGLOBIN 26.5 pg (27.0-33.4); MEAN CORPUSCULAR HGB CONC 33.6 g/dL (32.0-36.0); MEAN CORPUSCULAR VOLUME 79 fl (80-97); RED BLOOD COUNT 2.72 10^6/uL (3.72-5.28); RED CELL DISTRIBUTION WIDTH 18.7 % (11.5-14.0); WHITE BLOOD COUNT 7.1 10^3/uL (4.0-10.5)
[2016-10-12 07:57] LABS: HEMOGLOBIN 7.2 g/dL (12.0-15.5)
[2016-10-12 08:02] LABS: ANISOCYTOSIS 2+; BAND NEUTROPHILS % (MANUAL) 2 % (3-5); BASOPHILS % (MANUAL) 0 % (0-2); EOSINOPHILS % (MANUAL) 0 % (0-6); HYPOCHROMASIA 2+; LYMPHOCYTES % (MANUAL) 19 % (13-45); MICROCYTOSIS SLIGHT; TARGET CELLS 2+; TOTAL CELLS COUNTED 100
[2016-10-12] MEDS ORDERED: NORMAL SALINE 250 ML IV PRN ×2 (08:32)
[2016-10-12] MEDS: ENOXAPARIN SODIUM INJ 30 MG/0.3 ML DISP.SYRIN SUBCUT SCH (09:18)
[2016-10-12] MEDS: POTASSI CL 20 MEQ/50 ML RIDER 20 MEQ/50 ML RTUPB IV SCH ×2 (09:19→10:36)
[2016-10-12] MEDS: ACETAMINOPHEN 650 MG SUPP.RECT PR PRN (10:36)
--- NOTE | 2016-10-12 11:06 | PDOC PROGRESS REPORT ---
Subjective Progress Note for:: 10/12/16 Subjective:: She reports that she is having some abdominal pain but reports is tolerable. She is noted have a low hemoglobin. She also continues to have some fevers. Physical Exam Vital Signs: Temp Pulse Resp BP Pulse Ox 100.4 F 102 H 19 137/100 H 98 10/12/16 10:40 10/12/16 10:50 10/12/16 10:50 10/12/16 10:59 10/12/16 10:50 Intake & Output 10/11/16 10/12/16 10/13/16 06:59 06:59 06:59 Intake Total 3658 1682 0 Output Total 3625 4225 80 Balance 33 -0293 -80 Weight 56.5 kg 56.8 kg General appearance: PRESENT: no acute distress Eye exam: PRESENT: conjunctiva pink Mouth exam: PRESENT: moist, tongue midline Neck exam: ABSENT: JVD Respiratory exam: PRESENT: clear to auscultation rei. ABSENT: rales, rhonchi, wheezes Cardiovascular exam: PRESENT: RRR. ABSENT: diastolic murmur, rubs, systolic murmur GI/Abdominal exam: PRESENT: other - Midline surgical dressing in place and dry and intact with no bleeding. Extremities exam: ABSENT: calf tenderness, clubbing, pedal edema Neurological exam: PRESENT: alert, awake, oriented to person, oriented to place , oriented to time, oriented to situation Psychiatric exam: PRESENT: appropriate affect Skin exam: PRESENT: other - Patient has dressings in place on her bilateral legs. Results Laboratory Results: 10/12/16 06:39 10/12/16 06:39 10/12/16 10/12/16 10/12/16 06:39 06:39 09:00 WBC 7.1 RBC 2.72 L Hgb 7.2 L Hct 21.4 L MCV 79 L MCH 26.5 L MCHC 33.6 RDW 18.7 H Plt Count 169 Seg Neutrophils % Not Reportable Lymphocytes % Not Reportable Monocytes % Not Reportable Eosinophils % Not Reportable Basophils % Not Reportable Absolute Neutrophils Not Reportable Absolute Lymphocytes Not Reportable Absolute Monocytes Not Reportable Absolute Eosinophils Not Reportable Absolute Basophils Not Reportable Sodium 138.3 Potassium 2.9 L* Chloride 110 H Carbon Dioxide 20 L Anion Gap 8 BUN 3 L Creatinine 0.57 Est GFR ( Amer) > 60 Est GFR (Non-Af Amer) > 60 Glucose 88 Calcium 7.5 L Magnesium 1.5 L Blood Type O POSITIVE Antibody Screen NEGATIVE Impressions: Chest X-Ray 10/09/16 00:00 IMPRESSION: Bibasilar consolidation. Small bilateral pleural effusions. Endotracheal tube tip overlies the mid trachea. Right IJ central venous catheter tip overlies the right atrium. Nasogastric catheter overlies the body of the stomach. Drainage catheter is present over the epigastric region. Abdomen CT 10/09/16 18:02 IMPRESSION: Intraperitoneal gas is present across the upper abdomen as well as in the gallbladder fossa. Diffuse inflammatory changes and moderately large amount of free fluid are present throughout the abdomen and pelvis. Assessment & Plan - Diagnosis (1) Hypotension Is this a current diagnosis for this admission?: YesPlan: The patient initially had some hypotension which has resolved. Her blood pressure has remained stable. (2) Perforated bowel Is this a current diagnosis for this admission?: YesPlan: This was secondary to a duodenal ulcer which was surgically repaired. The patient currently is on Zosyn. She is still running low-grade fever and we'll add on Flagyl to her therapy. (3) Duodenal ulcer Is this a current diagnosis for this admission?: YesPlan: Patient had surgery for repair of this (4) SLE (systemic lupus erythematosus) Qualifiers: Systemic lupus erythematosus type: unspecified Systemic lupus erythematosus organ involvement: unspecified Qualified Code(s): M32.9 - Systemic lupus erythematosus, unspecified Is this a current diagnosis for this admission?: YesPlan: Patient has complications with vasculitis of her legs. (5) Vasculitis Is this a current diagnosis for this admission?: YesPlan: Patient has problems with vasculitis of the lower extremities with large wounds. (6) Bilateral leg ulcer Is this a current diagnosis for this admission?: YesPlan: Secondary to vasculitis. We'll continue local wound care. (7) Anemia of chronic disease Is this a current diagnosis for this admission?: YesPlan: Hemoglobin has remained stable. (8) Essential hypertension Is this a current diagnosis for this admission?: YesPlan: We'll hold antihypertensives for now. (9) Gastroesophageal reflux disease Qualifiers: Esophagitis presence: without esophagitis Qualified Code(s): K21.9 - Gastro-esophageal reflux disease without esophagitis Is this a current diagnosis for this admission?: YesPlan: Patient had a duodenal ulcer. (10) Crack cocaine use Is this a current diagnosis for this admission?: YesPlan: The patient tested positive for cocaine. This is contributing to some of the problems with her vasculitis of her legs. - Time Time Spent with patient: 35 or more minutes - Inpatient Certification Medical Necessity: Need Close Monitoring Due to Risk of Patient Decompensation, Need for Pain Control, Need for IV Antibiotics - Plan Summary Plan Summary: The patient has orders to move out of the ICU. We are awaiting an [facility] level bed to transfer her.
[2016-10-12] MEDS: METRONIDAZOLE 500 MG/NS RTU 100 ML IV SCH ×3 (14:47→23:09)
[2016-10-12 19:53] LABS: HEMATOCRIT 30.4 % (36.0-47.0); HGB HCT DIFFERENCE 0.8; MEAN CORPUSCULAR HEMOGLOBIN 27.1 pg (27.0-33.4); MEAN CORPUSCULAR HGB CONC 34.3 g/dL (32.0-36.0); MEAN CORPUSCULAR VOLUME 79 fl (80-97); RED BLOOD COUNT 3.85 10^6/uL (3.72-5.28); RED CELL DISTRIBUTION WIDTH 17.4 % (11.5-14.0); WHITE BLOOD COUNT 7.1 10^3/uL (4.0-10.5)
[2016-10-12 19:57] LABS: HEMOGLOBIN 10.4 g/dL (12.0-15.5)
[2016-10-12 20:13] LABS: BAND NEUTROPHILS % (MANUAL) 4 % (3-5); BASOPHILS % (MANUAL) 0 % (0-2); EOSINOPHILS % (MANUAL) 1 % (0-6); LYMPHOCYTES % (MANUAL) 14 % (13-45); TOTAL CELLS COUNTED 100
[2016-10-12 20:16] LABS: HYPOCHROMASIA 1+; TOXIC GRANULATION SLIGHT
[2016-10-12 20:17] LABS: ANISOCYTOSIS 1+; MICROCYTOSIS SLIGHT; OVALOCYTES SLIGHT; POIKILOCYTOSIS 1+; TARGET CELLS 2+; TEAR DROP CELLS SLIGHT
[2016-10-13] MEDS: DEXTROSE 5%-NORMAL SALINE 1,000 ML IV SCH ×3 (00:57→23:25)
[2016-10-13] MEDS: PIPERACILLIN SODIUM/TAZOBACTAM 3.375 GM in NORMAL SALINE 100 ML IV SCH ×3 (02:15→18:17)
[2016-10-13] MEDS: MORPHINE SULFATE 10 MG/ML INJ IV PRN ×7 (04:28→20:36)
[2016-10-13 05:35] LABS: ANION GAP 9 (5-19); BLOOD UREA NITROGEN 3 mg/dL (7-20); CALCIUM 7.7 mg/dL (8.4-10.2); CARBON DIOXIDE 20 mmol/L (22-30); CHLORIDE 109 mmol/L (98-107); CREATININE RESULT 0.56 mg/dL (0.52-1.25); GLUCOSE 99 mg/dL (75-110); SODIUM 137.8 mmol/L (137-145)
[2016-10-13] MEDS: ONDANSETRON HCL INJ/PF 4 MG/2 ML SDV IV PRN ×2 (05:36→19:29)
[2016-10-13] MEDS: METRONIDAZOLE 500 MG/NS RTU 100 ML IV SCH ×4 (05:37→23:23)
[2016-10-13 05:45] LABS: POTASSIUM 2.9 mmol/L (3.6-5.0)
[2016-10-13 05:58] LABS: HEMATOCRIT 31.2 % (36.0-47.0); HEMOGLOBIN 10.7 g/dL (12.0-15.5); HGB HCT DIFFERENCE 0.9; MEAN CORPUSCULAR HGB CONC 34.5 g/dL (32.0-36.0); MEAN CORPUSCULAR VOLUME 81 fl (80-97); RED BLOOD COUNT 3.84 10^6/uL (3.72-5.28); RED CELL DISTRIBUTION WIDTH 17.3 % (11.5-14.0); WHITE BLOOD COUNT 5.6 10^3/uL (4.0-10.5)
[2016-10-13 06:01] LABS: BAND NEUTROPHILS % (MANUAL) 6 % (3-5); BASOPHILS % (MANUAL) 0 % (0-2); EOSINOPHILS % (MANUAL) 0 % (0-6); LYMPHOCYTES % (MANUAL) 18 % (13-45); TOTAL CELLS COUNTED 100; TOXIC GRANULATION 1+; TOXIC VACUOLATION PRESENT
[2016-10-13 06:02] LABS: ANISOCYTOSIS 1+; BURR CELLS SLIGHT; HYPOCHROMASIA SLIGHT; OVALOCYTES SLIGHT; POIKILOCYTOSIS SLIGHT; ROULEAUX SLIGHT; TARGET CELLS SLIGHT
[2016-10-13] MEDS: POTASSI CL 20 MEQ/50 ML RIDER 50 ML IV SCH ×4 (06:40→18:17)
[2016-10-13] MEDS: MAGNESIUM SULFATE/D5W 100 ML IV SCH ×2 (06:47→08:05)
[2016-10-13] MEDS: ENOXAPARIN SODIUM INJ 30 MG/0.3 ML DISP.SYRIN SUBCUT SCH (07:46)
[2016-10-13] MEDS ORDERED: POTASSI CL 20 MEQ/50 ML RIDER 50 ML IV SCH (15:15)
[2016-10-13] MEDS ORDERED: PROMETHAZINE HCL 25 MG TABLET NG PRN (15:20)
[2016-10-13] MEDS ORDERED: DEXTROSE 40% GEL 15 GM TUBE X 2 NG PRN (15:21)
[2016-10-13] MEDS ORDERED: DEXTROSE 40% GEL 15 GM TUBE NG PRN (15:21)
--- NOTE | 2016-10-13 15:21 | PDOC PROGRESS REPORT ---
Subjective Progress Note for:: 10/13/16 Physical Exam Vital Signs: Temp Pulse Resp BP Pulse Ox 98.9 F 102 H 18 167/99 H 100 10/13/16 11:18 10/13/16 11:18 10/13/16 11:18 10/13/16 11:18 10/13/16 11:18 Intake & Output 10/12/16 10/13/16 10/14/16 06:59 06:59 06:59 Intake Total 1682 3581 Output Total 4225 2275 75 Balance -2543 1306 -75 Weight 56.8 kg 55.8 kg General appearance: PRESENT: no acute distress Respiratory exam: PRESENT: clear to auscultation rei Cardiovascular exam: PRESENT: tachycardia - Mild tachycardia with heart rate 104 GI/Abdominal exam: PRESENT: other - Soft, moderately distended, diffuse abdominal tenderness but no peritoneal signs. Drain output is serosanguineous. NG tube output is bilious. Results Laboratory Results: 10/13/16 04:35 10/13/16 04:35 10/09/16 10/11/16 10/12/16 23:50 04:24 09:00 WBC 3.6 L 10.4 RBC 3.79 3.18 L Hgb 9.7 L 8.2 L Hct 30.1 L 25.2 L MCV 79 L 80 MCH 25.7 L 25.8 L MCHC 32.4 32.5 RDW 19.1 H 18.9 H Plt Count 212 194 Seg Neutrophils % Lymphocytes % Monocytes % Eosinophils % Basophils % Absolute Neutrophils Absolute Lymphocytes Absolute Monocytes Absolute Eosinophils Absolute Basophils Sodium Potassium Chloride Carbon Dioxide Anion Gap BUN Creatinine Est GFR ( Amer) Est GFR (Non-Af Amer) Glucose Calcium Blood Type O POSITIVE Antibody Screen NEGATIVE 10/12/16 10/13/16 10/13/16 19:25 04:35 04:35 WBC 7.1 5.6 RBC 3.85 3.84 Hgb 10.4 L D 10.7 L Hct 30.4 L 31.2 L MCV 79 L 81 MCH 27.1 28.0 MCHC 34.3 34.5 RDW 17.4 H 17.3 H Plt Count 145 L 136 L Seg Neutrophils % Not Reportable Not Reportable Lymphocytes % Not Reportable Not Reportable Monocytes % Not Reportable Not Reportable Eosinophils % Not Reportable Not Reportable Basophils % Not Reportable Not Reportable Absolute Neutrophils Not Reportable Not Reportable Absolute Lymphocytes Not Reportable Not Reportable Absolute Monocytes Not Reportable Not Reportable Absolute Eosinophils Not Reportable Not Reportable Absolute Basophils Not Reportable Not Reportable Sodium 137.8 Potassium 2.9 L* Chloride 109 H Carbon Dioxide 20 L Anion Gap 9 BUN 3 L Creatinine 0.56 Est GFR ( Amer) > 60 Est GFR (Non-Af Amer) > 60 Glucose 99 Calcium 7.7 L Blood Type Antibody Screen Impressions: Chest X-Ray 10/09/16 00:00 IMPRESSION: Bibasilar consolidation. Small bilateral pleural effusions. Endotracheal tube tip overlies the mid trachea. Right IJ central venous catheter tip overlies the right atrium. Nasogastric catheter overlies the body of the stomach. Drainage catheter is present over the epigastric region. Abdomen CT 10/09/16 18:02 IMPRESSION: Intraperitoneal gas is present across the upper abdomen as well as in the gallbladder fossa. Diffuse inflammatory changes and moderately large amount of free fluid are present throughout the abdomen and pelvis. Assessment & Plan - Diagnosis (1) Perforated duodenal ulcer Is this a current diagnosis for this admission?: YesPlan: Status post Demar patch. Swallow study results are still pending at this time. However it is too early to remove her NG tube. Continue NG until it is less bilious, abdominal distention is improved, and tenderness has markedly improved. Continue antibiotics and abdominal drain.
--- NOTE | 2016-10-13 15:30 | PDOC PROGRESS REPORT ---
Subjective Progress Note for:: 10/13/16 Subjective:: Still with abdominal discomfort, remains on nasogastric tube, patient reports bowel movement and flatus. No chills or fever. No chest pain or shortness of breath. Sore with some petechia. Physical Exam Vital Signs: Temp Pulse Resp BP Pulse Ox 98.9 F 102 H 18 167/99 H 100 10/13/16 11:18 10/13/16 11:18 10/13/16 11:18 10/13/16 11:18 10/13/16 11:18 Intake & Output 10/12/16 10/13/16 10/14/16 06:59 06:59 06:59 Intake Total 1682 3581 Output Total 4225 2275 75 Balance -2543 1306 -75 Weight 56.8 kg 55.8 kg General appearance: PRESENT: no acute distress, other - Nasogastric tube in place Head exam: PRESENT: normocephalic Eye exam: PRESENT: conjunctiva pale, EOMI Mouth exam: PRESENT: moist, neck supple, tongue midline - There is no laceration noted. No ecchymosis or active bleeding. Neck exam: ABSENT: JVD Respiratory exam: PRESENT: clear to auscultation rei. ABSENT: crackles, rhonchi , wheezes Cardiovascular exam: PRESENT: RRR GI/Abdominal exam: PRESENT: hypoactive bowel sounds, soft, tenderness - Diffusely from recent surgery. ABSENT: distended Extremities exam: ABSENT: pedal edema Neurological exam: PRESENT: alert, awake, oriented to situation Skin exam: PRESENT: dry, warm. ABSENT: cyanosis Results Laboratory Results: 10/13/16 04:35 10/13/16 04:35 10/09/16 10/11/16 10/12/16 23:50 04:24 09:00 WBC 3.6 L 10.4 RBC 3.79 3.18 L Hgb 9.7 L 8.2 L Hct 30.1 L 25.2 L MCV 79 L 80 MCH 25.7 L 25.8 L MCHC 32.4 32.5 RDW 19.1 H 18.9 H Plt Count 212 194 Seg Neutrophils % Lymphocytes % Monocytes % Eosinophils % Basophils % Absolute Neutrophils Absolute Lymphocytes Absolute Monocytes Absolute Eosinophils Absolute Basophils Sodium Potassium Chloride Carbon Dioxide Anion Gap BUN Creatinine Est GFR ( Amer) Est GFR (Non-Af Amer) Glucose Calcium Blood Type O POSITIVE Antibody Screen NEGATIVE 10/12/16 10/13/16 10/13/16 19:25 04:35 04:35 WBC 7.1 5.6 RBC 3.85 3.84 Hgb 10.4 L D 10.7 L Hct 30.4 L 31.2 L MCV 79 L 81 MCH 27.1 28.0 MCHC 34.3 34.5 RDW 17.4 H 17.3 H Plt Count 145 L 136 L Seg Neutrophils % Not Reportable Not Reportable Lymphocytes % Not Reportable Not Reportable Monocytes % Not Reportable Not Reportable Eosinophils % Not Reportable Not Reportable Basophils % Not Reportable Not Reportable Absolute Neutrophils Not Reportable Not Reportable Absolute Lymphocytes Not Reportable Not Reportable Absolute Monocytes Not Reportable Not Reportable Absolute Eosinophils Not Reportable Not Reportable Absolute Basophils Not Reportable Not Reportable Sodium 137.8 Potassium 2.9 L* Chloride 109 H Carbon Dioxide 20 L Anion Gap 9 BUN 3 L Creatinine 0.56 Est GFR ( Amer) > 60 Est GFR (Non-Af Amer) > 60 Glucose 99 Calcium 7.7 L Blood Type Antibody Screen Impressions: Chest X-Ray 10/09/16 00:00 IMPRESSION: Bibasilar consolidation. Small bilateral pleural effusions. Endotracheal tube tip overlies the mid trachea. Right IJ central venous catheter tip overlies the right atrium. Nasogastric catheter overlies the body of the stomach. Drainage catheter is present over the epigastric region. Abdomen CT 10/09/16 18:02 IMPRESSION: Intraperitoneal gas is present across the upper abdomen as well as in the gallbladder fossa. Diffuse inflammatory changes and moderately large amount of free fluid are present throughout the abdomen and pelvis. Assessment & Plan - Diagnosis (1) Hypotension Qualifiers: Hypotension type: unspecified hypotension type Qualified Code(s): I95.9 - Hypotension, unspecified Is this a current diagnosis for this admission?: Yes (2) Perforated duodenal ulcer Is this a current diagnosis for this admission?: Yes (3) Anemia of chronic disease Is this a current diagnosis for this admission?: Yes (4) Hypokalemia Is this a current diagnosis for this admission?: Yes (5) Essential hypertension Is this a current diagnosis for this admission?: Yes (6) Gastroesophageal reflux disease Qualifiers: Esophagitis presence: without esophagitis Qualified Code(s): K21.9 - Gastro-esophageal reflux disease without esophagitis Is this a current diagnosis for this admission?: Yes (7) Vasculitis Is this a current diagnosis for this admission?: Yes (8) Bilateral leg ulcer Is this a current diagnosis for this admission?: Yes (9) SLE (systemic lupus erythematosus) Qualifiers: Systemic lupus erythematosus type: unspecified Systemic lupus erythematosus organ involvement: unspecified Qualified Code(s): M32.9 - Systemic lupus erythematosus, unspecified Is this a current diagnosis for this admission?: Yes (10) Crack cocaine use Is this a current diagnosis for this admission?: Yes - Time Time Spent with patient: 25-34 minutes - Plan Summary Plan Summary: Plan replace potassium and monitor electrolytes. I will put the patient on intravenous Pepcid. We will monitor platelet count. Continue current antibiotic and supportive care. Check magnesium and phosphorus in the morning.
[2016-10-13] MEDS: ACETAMINOPHEN 650 MG SUPP.RECT PR PRN (16:12)
[2016-10-13] MEDS: FAMOTIDINE INJ/PF 20 MG/2 ML SDV IV SCH (23:24)
[2016-10-14] MEDS: MORPHINE SULFATE 10 MG/ML INJ IV PRN ×8 (02:47→23:05)
[2016-10-14] MEDS: PIPERACILLIN SODIUM/TAZOBACTAM 3.375 GM in NORMAL SALINE 100 ML IV SCH ×3 (02:47→18:00)
[2016-10-14] MEDS: ONDANSETRON HCL INJ/PF 4 MG/2 ML SDV IV PRN (03:00)
[2016-10-14] MEDS: METRONIDAZOLE 500 MG/NS RTU 100 ML IV SCH ×4 (05:07→23:05)
[2016-10-14 06:06] LABS: ANION GAP 7 (5-19); BLOOD UREA NITROGEN < 2 mg/dL (7-20); CALCIUM 7.5 mg/dL (8.4-10.2); CARBON DIOXIDE 23 mmol/L (22-30); CHLORIDE 111 mmol/L (98-107); CREATININE RESULT 0.53 mg/dL (0.52-1.25); GLUCOSE 98 mg/dL (75-110); MAGNESIUM 1.6 mg/dL (1.6-2.3); PHOSPHORUS 2.8 mg/dL (2.5-4.5); SODIUM 140.7 mmol/L (137-145)
[2016-10-14 06:08] LABS: POTASSIUM 2.9 mmol/L (3.6-5.0)
[2016-10-14] MEDS: ENOXAPARIN SODIUM INJ 30 MG/0.3 ML DISP.SYRIN SUBCUT SCH (08:43)
[2016-10-14] MEDS: POTASSI CL 20 MEQ/D5NS 1L 1,000 ML IV PRN ×2 (08:43→23:01)
[2016-10-14] MEDS: POTASSI CL 20 MEQ/50 ML RIDER 50 ML IV SCH ×3 (08:44→13:25)
[2016-10-14] MEDS: FAMOTIDINE INJ/PF 20 MG/2 ML SDV IV SCH ×2 (09:58→21:22)
--- NOTE | 2016-10-14 14:26 | PDOC PROGRESS REPORT ---
Subjective Progress Note for:: 10/14/16 Subjective:: Nausea but no vomiting. Some diarrhea. Some pain. NG in place. Physical Exam Vital Signs: Temp Pulse Resp BP Pulse Ox 98.6 F 88 16 163/93 H 100 10/14/16 07:45 10/14/16 07:45 10/14/16 07:45 10/14/16 07:45 10/14/16 07:45 Intake & Output 10/13/16 10/14/16 10/15/16 06:59 06:59 06:59 Intake Total 3581 3070 Output Total 2275 595 Balance 1306 2475 Weight 55.8 kg 56.1 kg General appearance: PRESENT: no acute distress Eye exam: PRESENT: EOMI GI/Abdominal exam: PRESENT: distended - Minimal distention., soft, tenderness - Appropriate incisional tenderness. Dressing was removed. Incision is clean dry and intact with lorraine. A dressing was placed., other - + bowel sounds. NG is in place and functioning appropriately. Medium to Dark gastric output. Neurological exam: PRESENT: alert, oriented to situation Skin exam: PRESENT: other - Her skin is much improved compared to when I saw her last admission. Results Laboratory Results: 10/13/16 04:35 10/14/16 05:15 10/09/16 10/11/16 10/14/16 23:50 04:24 05:15 WBC 3.6 L 10.4 RBC 3.79 3.18 L Hgb 9.7 L 8.2 L Hct 30.1 L 25.2 L MCV 79 L 80 MCH 25.7 L 25.8 L MCHC 32.4 32.5 RDW 19.1 H 18.9 H Plt Count 212 194 Sodium 140.7 Potassium 2.9 L* Chloride 111 H Carbon Dioxide 23 Anion Gap 7 BUN < 2 L Creatinine 0.53 Est GFR ( Amer) > 60 Est GFR (Non-Af Amer) > 60 Glucose 98 Calcium 7.5 L Phosphorus 2.8 Magnesium 1.6 Impressions: Chest X-Ray 10/09/16 00:00 IMPRESSION: Bibasilar consolidation. Small bilateral pleural effusions. Endotracheal tube tip overlies the mid trachea. Right IJ central venous catheter tip overlies the right atrium. Nasogastric catheter overlies the body of the stomach. Drainage catheter is present over the epigastric region. Abdomen CT 10/09/16 18:02 IMPRESSION: Intraperitoneal gas is present across the upper abdomen as well as in the gallbladder fossa. Diffuse inflammatory changes and moderately large amount of free fluid are present throughout the abdomen and pelvis. Upper GI Series 10/13/16 07:00 IMPRESSION: POSTOPERATIVE CHANGES SEEN OF THE DISTAL STOMACH AND PROXIMAL DUODENUM WITHOUT EVIDENCE OF EXTRAVASATION OR LEAK OF CONTRAST. MILD POSTOPERATIVE EDEMA IS SEEN ALONG THE PROXIMAL DUODENUM. ESOPHAGEAL DYSMOTILITY IS NOTED. Status: Image reviewed by me Assessment & Plan - Diagnosis (1) Perforated duodenal ulcer Is this a current diagnosis for this admission?: YesPlan: Upper GI was negative for a leak. Patient still has some nausea. Overall doing well. Continue NG tube and nothing by mouth status. Continue DVT prophylaxis.
--- NOTE | 2016-10-14 15:01 | PDOC PROGRESS REPORT ---
Subjective Progress Note for:: 10/14/16 Subjective:: Patient is resting comfortably. Still on nasogastric tube. Patient did have a bowel movement yesterday. No nausea or vomiting reported. No temperature spikes no respiratory distress. No diarrhea reported. Potassium remained low. Physical Exam Vital Signs: Temp Pulse Resp BP Pulse Ox 98.7 F 98 16 154/98 H 100 10/14/16 11:14 10/14/16 14:00 10/14/16 11:14 10/14/16 11:14 10/14/16 11:14 Intake & Output 10/13/16 10/14/16 10/15/16 06:59 06:59 06:59 Intake Total 3581 3070 Output Total 2275 595 50 Balance 1306 2475 -50 Weight 55.8 kg 56.1 kg General appearance: PRESENT: no acute distress, other - Resting comfortably in bed Head exam: PRESENT: normocephalic Eye exam: PRESENT: conjunctiva pale Mouth exam: PRESENT: moist, neck supple Neck exam: ABSENT: JVD Respiratory exam: PRESENT: clear to auscultation rei - Anteriorly. ABSENT: rhonchi, wheezes Cardiovascular exam: PRESENT: RRR. ABSENT: gallop GI/Abdominal exam: PRESENT: hypoactive bowel sounds, soft. ABSENT: distended Extremities exam: ABSENT: pedal edema Skin exam: PRESENT: dry, warm. ABSENT: cyanosis Results Laboratory Results: 10/13/16 04:35 10/14/16 05:15 10/09/16 10/11/16 10/14/16 23:50 04:24 05:15 WBC 3.6 L 10.4 RBC 3.79 3.18 L Hgb 9.7 L 8.2 L Hct 30.1 L 25.2 L MCV 79 L 80 MCH 25.7 L 25.8 L MCHC 32.4 32.5 RDW 19.1 H 18.9 H Plt Count 212 194 Sodium 140.7 Potassium 2.9 L* Chloride 111 H Carbon Dioxide 23 Anion Gap 7 BUN < 2 L Creatinine 0.53 Est GFR ( Amer) > 60 Est GFR (Non-Af Amer) > 60 Glucose 98 Calcium 7.5 L Phosphorus 2.8 Magnesium 1.6 Impressions: Chest X-Ray 10/09/16 00:00 IMPRESSION: Bibasilar consolidation. Small bilateral pleural effusions. Endotracheal tube tip overlies the mid trachea. Right IJ central venous catheter tip overlies the right atrium. Nasogastric catheter overlies the body of the stomach. Drainage catheter is present over the epigastric region. Abdomen CT 10/09/16 18:02 IMPRESSION: Intraperitoneal gas is present across the upper abdomen as well as in the gallbladder fossa. Diffuse inflammatory changes and moderately large amount of free fluid are present throughout the abdomen and pelvis. Upper GI Series 10/13/16 07:00 IMPRESSION: POSTOPERATIVE CHANGES SEEN OF THE DISTAL STOMACH AND PROXIMAL DUODENUM WITHOUT EVIDENCE OF EXTRAVASATION OR LEAK OF CONTRAST. MILD POSTOPERATIVE EDEMA IS SEEN ALONG THE PROXIMAL DUODENUM. ESOPHAGEAL DYSMOTILITY IS NOTED. Assessment & Plan - Diagnosis (1) Hypotension Qualifiers: Hypotension type: unspecified hypotension type Qualified Code(s): I95.9 - Hypotension, unspecified Is this a current diagnosis for this admission?: Yes (2) Perforated duodenal ulcer Is this a current diagnosis for this admission?: Yes (3) Anemia of chronic disease Is this a current diagnosis for this admission?: Yes (4) Hypokalemia Is this a current diagnosis for this admission?: Yes (5) Essential hypertension Is this a current diagnosis for this admission?: Yes (6) Gastroesophageal reflux disease Qualifiers: Esophagitis presence: without esophagitis Qualified Code(s): K21.9 - Gastro-esophageal reflux disease without esophagitis Is this a current diagnosis for this admission?: Yes (7) Vasculitis Is this a current diagnosis for this admission?: Yes (8) Bilateral leg ulcer Is this a current diagnosis for this admission?: Yes (9) SLE (systemic lupus erythematosus) Qualifiers: Systemic lupus erythematosus type: unspecified Systemic lupus erythematosus organ involvement: unspecified Qualified Code(s): M32.9 - Systemic lupus erythematosus, unspecified Is this a current diagnosis for this admission?: Yes (10) Crack cocaine use Is this a current diagnosis for this admission?: Yes - Time Time Spent with patient: 15-24 minutes - Plan Summary Plan Summary: Continue antibiotics and IV fluids. Replace potassium. Serum magnesium as well. Recheck electrolytes in the morning. Continue supportive care, we'll continue to follow.
[2016-10-14] MEDS ORDERED: MAGNESIUM SULFATE/D5W 1 GM/100 ML RTUPB IV ONE (15:30)
[2016-10-15] MEDS: PIPERACILLIN SODIUM/TAZOBACTAM 3.375 GM in NORMAL SALINE 100 ML IV SCH ×3 (02:25→17:17)
[2016-10-15] MEDS: MORPHINE SULFATE 10 MG/ML INJ IV PRN ×7 (03:15→21:52)
[2016-10-15] MEDS: METRONIDAZOLE 500 MG/NS RTU 100 ML IV SCH ×3 (06:45→17:15)
[2016-10-15 07:40] LABS: ANION GAP 8 (5-19); CALCIUM 7.9 mg/dL (8.4-10.2); CARBON DIOXIDE 21 mmol/L (22-30); CHLORIDE 112 mmol/L (98-107); CREATININE RESULT 0.53 mg/dL (0.52-1.25); GLUCOSE 71 mg/dL (75-110); MAGNESIUM 1.6 mg/dL (1.6-2.3); POTASSIUM 3.4 mmol/L (3.6-5.0); SODIUM 140.9 mmol/L (137-145)
[2016-10-15 07:48] LABS: BLOOD UREA NITROGEN < 2 mg/dL (7-20)
[2016-10-15] MEDS: FAMOTIDINE INJ/PF 20 MG/2 ML SDV IV SCH ×2 (08:40→21:52)
[2016-10-15 09:11] LABS: ABSOLUTE EOSINOPHILS # (AUTO) 0.1 10^3/uL (0.0-0.6); ABSOLUTE LYMPHOCYTES (AUTO) 1.1 10^3/uL (0.5-4.7); ABSOLUTE MONOCYTES (AUTO) 0.4 10^3/uL (0.1-1.4); ABSOLUTE NEUT (AUTO) 3.1 10^3/uL (1.7-8.2); BASOPHILS % (AUTO) 0.9 % (0-2); EOSINOPHILS % (AUTO) 1.1 % (0-6); HEMATOCRIT 27.2 % (36.0-47.0); HGB HCT DIFFERENCE -0.2; LYMPHOCYTES % (AUTO) 23.7 % (13-45); MEAN CORPUSCULAR HEMOGLOBIN 26.5 pg (27.0-33.4); MEAN CORPUSCULAR HGB CONC 33.2 g/dL (32.0-36.0); MEAN CORPUSCULAR VOLUME 80 fl (80-97); MONOCYTES % (AUTO) 9.4 % (3-13); RED BLOOD COUNT 3.41 10^6/uL (3.72-5.28); RED CELL DISTRIBUTION WIDTH 18.5 % (11.5-14.0); SEGMENTED NEUTROPHILS % (AUTO) 64.9 % (42-78); WHITE BLOOD COUNT 4.7 10^3/uL (4.0-10.5)
[2016-10-15] MEDS ORDERED: NORMAL SALINE 1000 ML 1,000 ML IV PRN (10:06)
--- NOTE | 2016-10-15 10:10 | PDOC PROGRESS REPORT ---
Subjective Progress Note for:: 10/15/16 Subjective:: No reported temperature spikes or respiratory distress. Patient denies any pain or discomfort at this time. Patient reports bowel movement. No nausea or vomiting. Remains a nasogastric tube. LANG drain still with some drainage. Platelet count reportedly trending down. Physical Exam Vital Signs: Temp Pulse Resp BP Pulse Ox 98.8 F 95 16 146/100 H 100 10/15/16 07:34 10/15/16 07:34 10/15/16 07:34 10/15/16 07:34 10/15/16 07:34 Intake & Output 10/14/16 10/15/16 10/16/16 06:59 06:59 06:59 Intake Total 3070 2773 Output Total 595 450 350 Balance 2475 2323 -350 Weight 56.1 kg 54 kg General appearance: PRESENT: no acute distress, cooperative Head exam: PRESENT: normocephalic Eye exam: PRESENT: EOMI Mouth exam: PRESENT: moist, neck supple Neck exam: ABSENT: JVD Respiratory exam: PRESENT: clear to auscultation rei. ABSENT: rhonchi, wheezes Cardiovascular exam: PRESENT: RRR. ABSENT: gallop GI/Abdominal exam: PRESENT: hypoactive bowel sounds, soft. ABSENT: distended Extremities exam: ABSENT: pedal edema Neurological exam: PRESENT: alert, awake, oriented to situation Skin exam: PRESENT: dry, warm. ABSENT: cyanosis Results Laboratory Results: 10/15/16 08:45 10/15/16 06:40 10/14/16 10/15/16 10/15/16 17:57 06:40 08:45 WBC 4.7 RBC 3.41 L Hgb 9.0 L Hct 27.2 L MCV 80 MCH 26.5 L MCHC 33.2 RDW 18.5 H Plt Count 106 L Seg Neutrophils % 64.9 Lymphocytes % 23.7 Monocytes % 9.4 Eosinophils % 1.1 Basophils % 0.9 Absolute Neutrophils 3.1 Absolute Lymphocytes 1.1 Absolute Monocytes 0.4 Absolute Eosinophils 0.1 Absolute Basophils 0.0 Sodium 140.9 Potassium 3.6 3.4 L Chloride 112 H Carbon Dioxide 21 L Anion Gap 8 BUN < 2 L Creatinine 0.53 Est GFR ( Amer) > 60 Est GFR (Non-Af Amer) > 60 Glucose 71 L Calcium 7.9 L Magnesium 1.6 Impressions: Chest X-Ray 10/09/16 00:00 IMPRESSION: Bibasilar consolidation. Small bilateral pleural effusions. Endotracheal tube tip overlies the mid trachea. Right IJ central venous catheter tip overlies the right atrium. Nasogastric catheter overlies the body of the stomach. Drainage catheter is present over the epigastric region. Abdomen CT 10/09/16 18:02 IMPRESSION: Intraperitoneal gas is present across the upper abdomen as well as in the gallbladder fossa. Diffuse inflammatory changes and moderately large amount of free fluid are present throughout the abdomen and pelvis. Upper GI Series 10/13/16 07:00 IMPRESSION: POSTOPERATIVE CHANGES SEEN OF THE DISTAL STOMACH AND PROXIMAL DUODENUM WITHOUT EVIDENCE OF EXTRAVASATION OR LEAK OF CONTRAST. MILD POSTOPERATIVE EDEMA IS SEEN ALONG THE PROXIMAL DUODENUM. ESOPHAGEAL DYSMOTILITY IS NOTED. Assessment & Plan - Diagnosis (1) Hypotension Qualifiers: Hypotension type: unspecified hypotension type Qualified Code(s): I95.9 - Hypotension, unspecified Is this a current diagnosis for this admission?: Yes (2) Perforated duodenal ulcer Is this a current diagnosis for this admission?: Yes (3) Anemia of chronic disease Is this a current diagnosis for this admission?: Yes (4) Hypokalemia Is this a current diagnosis for this admission?: Yes (5) Essential hypertension Is this a current diagnosis for this admission?: Yes (6) Gastroesophageal reflux disease Qualifiers: Esophagitis presence: without esophagitis Qualified Code(s): K21.9 - Gastro-esophageal reflux disease without esophagitis Is this a current diagnosis for this admission?: Yes (7) Vasculitis Is this a current diagnosis for this admission?: Yes (8) Bilateral leg ulcer Is this a current diagnosis for this admission?: Yes (9) SLE (systemic lupus erythematosus) Qualifiers: Systemic lupus erythematosus type: unspecified Systemic lupus erythematosus organ involvement: unspecified Qualified Code(s): M32.9 - Systemic lupus erythematosus, unspecified Is this a current diagnosis for this admission?: Yes (10) Crack cocaine use Is this a current diagnosis for this admission?: Yes - Time Time Spent with patient: 25-34 minutes - Plan Summary Plan Summary: We will recheck platelet count. Continue antibiotics. Replace potassium. Give 1 dose of magnesium. We will continue normal saline hydration. Continue supportive care. Monitor electrolytes.
[2016-10-15] MEDS ORDERED: MAGNESIUM SULFATE/D5W 100 ML IV ONE (10:15)
[2016-10-15] MEDS: ENOXAPARIN SODIUM INJ 30 MG/0.3 ML DISP.SYRIN SUBCUT SCH (11:21)
[2016-10-15] MEDS: POTASSI CL 20 MEQ/50 ML RIDER 50 ML IV SCH ×3 (11:28→15:50)
[2016-10-15] MEDS ORDERED: DEXTROSE 5%-1/2 NORMAL SALINE 1,000 ML IV PRN (17:20)
[2016-10-16] MEDS: METRONIDAZOLE 500 MG/NS RTU 100 ML IV SCH ×4 (00:32→18:15)
[2016-10-16] MEDS: PIPERACILLIN SODIUM/TAZOBACTAM 3.375 GM in NORMAL SALINE 100 ML IV SCH ×3 (02:31→18:19)
[2016-10-16] MEDS: MORPHINE SULFATE 10 MG/ML INJ IV PRN ×6 (02:31→21:04)
[2016-10-16 06:29] LABS: ANION GAP 7 (5-19); CALCIUM 7.7 mg/dL (8.4-10.2); CARBON DIOXIDE 23 mmol/L (22-30); CHLORIDE 107 mmol/L (98-107); CREATININE RESULT 0.55 mg/dL (0.52-1.25); GLUCOSE 90 mg/dL (75-110); MAGNESIUM 1.4 mg/dL (1.6-2.3); POTASSIUM 3.2 mmol/L (3.6-5.0); SODIUM 137.1 mmol/L (137-145)
[2016-10-16 06:33] LABS: BLOOD UREA NITROGEN < 2 mg/dL (7-20)
--- NOTE | 2016-10-16 06:49 | PDOC PROGRESS REPORT ---
Subjective Progress Note for:: 10/15/16 Subjective:: seen earlier. Still has nausea. No vomiting. NG tube had 350 mL of dark green gastric last shift. She is thirsty. Physical Exam Vital Signs: Temp Pulse Resp BP Pulse Ox 98.4 F 87 20 137/97 H 100 10/16/16 03:29 10/16/16 03:29 10/16/16 03:29 10/16/16 03:29 10/16/16 03:29 Intake & Output 10/14/16 10/15/16 10/16/16 06:59 06:59 06:59 Intake Total 3070 2773 1850 Output Total 595 450 350 Balance 2475 2323 1500 Weight 56.1 kg 54 kg 53.5 kg General appearance: PRESENT: no acute distress GI/Abdominal exam: PRESENT: distended - Mild distention, soft, tenderness - Appropriate incisional tenderness. Incision clean and dry with lorraine. Scant to no bowel sounds. Neurological exam: PRESENT: alert, oriented to situation Psychiatric exam: PRESENT: normal mood Results Laboratory Results: 10/15/16 08:45 10/16/16 05:45 10/15/16 10/15/16 10/16/16 06:40 08:45 05:45 WBC 4.7 RBC 3.41 L Hgb 9.0 L Hct 27.2 L MCV 80 MCH 26.5 L MCHC 33.2 RDW 18.5 H Plt Count 106 L Seg Neutrophils % 64.9 Lymphocytes % 23.7 Monocytes % 9.4 Eosinophils % 1.1 Basophils % 0.9 Absolute Neutrophils 3.1 Absolute Lymphocytes 1.1 Absolute Monocytes 0.4 Absolute Eosinophils 0.1 Absolute Basophils 0.0 Sodium 140.9 137.1 Potassium 3.4 L 3.2 L Chloride 112 H 107 Carbon Dioxide 21 L 23 Anion Gap 8 7 BUN < 2 L < 2 L Creatinine 0.53 0.55 Est GFR ( Amer) > 60 > 60 Est GFR (Non-Af Amer) > 60 > 60 Glucose 71 L 90 Calcium 7.9 L 7.7 L Magnesium 1.6 1.4 L Impressions: Chest X-Ray 10/09/16 00:00 IMPRESSION: Bibasilar consolidation. Small bilateral pleural effusions. Endotracheal tube tip overlies the mid trachea. Right IJ central venous catheter tip overlies the right atrium. Nasogastric catheter overlies the body of the stomach. Drainage catheter is present over the epigastric region. Abdomen CT 10/09/16 18:02 IMPRESSION: Intraperitoneal gas is present across the upper abdomen as well as in the gallbladder fossa. Diffuse inflammatory changes and moderately large amount of free fluid are present throughout the abdomen and pelvis. Upper GI Series 10/13/16 07:00 IMPRESSION: POSTOPERATIVE CHANGES SEEN OF THE DISTAL STOMACH AND PROXIMAL DUODENUM WITHOUT EVIDENCE OF EXTRAVASATION OR LEAK OF CONTRAST. MILD POSTOPERATIVE EDEMA IS SEEN ALONG THE PROXIMAL DUODENUM. ESOPHAGEAL DYSMOTILITY IS NOTED. Assessment & Plan - Diagnosis (1) Perforated duodenal ulcer Is this a current diagnosis for this admission?: YesPlan: Status post Demar patch repair of perforated ulcer. She reports bowel movements and flatus, it still has significant NG output and decreased bowel sounds. Continue NG tube to low intermittent suction.
[2016-10-16] MEDS: ENOXAPARIN SODIUM INJ 30 MG/0.3 ML DISP.SYRIN SUBCUT SCH (08:20)
[2016-10-16] MEDS: FAMOTIDINE INJ/PF 20 MG/2 ML SDV IV SCH (09:59)
[2016-10-16] MEDS ORDERED: DEXTROSE 10%-WATER 1,000 ML IV PRN (10:51)
[2016-10-16] MEDS ORDERED: INSULIN REG, HUMAN 100 UNIT/ML 3 ML VIAL (PYX) SUBCUT PRN (10:51)
--- NOTE | 2016-10-16 10:51 | PDOC PROGRESS REPORT ---
Subjective Progress Note for:: 10/16/16 Subjective:: Patient remains hypokalemic and hypomagnesemic. Still having increased output from the nasogastric tube. LANG drain less drainage and this was pulled out by surgical service. Denies diarrhea or nausea or vomiting. Denies shortness of breath she was or fever. Physical Exam Vital Signs: Temp Pulse Resp BP Pulse Ox 98.2 F 86 16 138/93 H 100 10/16/16 07:45 10/16/16 07:45 10/16/16 07:45 10/16/16 07:45 10/16/16 07:45 Intake & Output 10/15/16 10/16/16 10/17/16 06:59 06:59 06:59 Intake Total 2773 3000 Output Total 450 350 Balance 2323 2650 Weight 54 kg 53.5 kg General appearance: PRESENT: no acute distress, cooperative, other - Nasogastric tube in place Head exam: PRESENT: normocephalic Eye exam: PRESENT: EOMI Mouth exam: PRESENT: moist, neck supple Neck exam: ABSENT: JVD Respiratory exam: PRESENT: clear to auscultation rei Cardiovascular exam: PRESENT: RRR. ABSENT: gallop GI/Abdominal exam: PRESENT: soft, tenderness - Noted on the incision site., other - Incision sites clean and dry without dehiscence or drainage. ABSENT: distended Extremities exam: ABSENT: pedal edema Neurological exam: PRESENT: alert, awake, oriented to situation Skin exam: PRESENT: dry, warm. ABSENT: cyanosis Results Laboratory Results: 10/15/16 08:45 10/16/16 05:45 10/16/16 05:45 Sodium 137.1 Potassium 3.2 L Chloride 107 Carbon Dioxide 23 Anion Gap 7 BUN < 2 L Creatinine 0.55 Est GFR ( Amer) > 60 Est GFR (Non-Af Amer) > 60 Glucose 90 Calcium 7.7 L Magnesium 1.4 L Impressions: Chest X-Ray 10/09/16 00:00 IMPRESSION: Bibasilar consolidation. Small bilateral pleural effusions. Endotracheal tube tip overlies the mid trachea. Right IJ central venous catheter tip overlies the right atrium. Nasogastric catheter overlies the body of the stomach. Drainage catheter is present over the epigastric region. Abdomen CT 10/09/16 18:02 IMPRESSION: Intraperitoneal gas is present across the upper abdomen as well as in the gallbladder fossa. Diffuse inflammatory changes and moderately large amount of free fluid are present throughout the abdomen and pelvis. Upper GI Series 10/13/16 07:00 IMPRESSION: POSTOPERATIVE CHANGES SEEN OF THE DISTAL STOMACH AND PROXIMAL DUODENUM WITHOUT EVIDENCE OF EXTRAVASATION OR LEAK OF CONTRAST. MILD POSTOPERATIVE EDEMA IS SEEN ALONG THE PROXIMAL DUODENUM. ESOPHAGEAL DYSMOTILITY IS NOTED. Assessment & Plan - Diagnosis (1) Hypotension Qualifiers: Hypotension type: unspecified hypotension type Qualified Code(s): I95.9 - Hypotension, unspecified Is this a current diagnosis for this admission?: Yes (2) Perforated duodenal ulcer Is this a current diagnosis for this admission?: Yes (3) Anemia of chronic disease Is this a current diagnosis for this admission?: Yes (4) Hypokalemia Is this a current diagnosis for this admission?: Yes (5) Essential hypertension Is this a current diagnosis for this admission?: Yes (6) Gastroesophageal reflux disease Qualifiers: Esophagitis presence: without esophagitis Qualified Code(s): K21.9 - Gastro-esophageal reflux disease without esophagitis Is this a current diagnosis for this admission?: Yes (7) Vasculitis Is this a current diagnosis for this admission?: Yes (8) Bilateral leg ulcer Is this a current diagnosis for this admission?: Yes (9) SLE (systemic lupus erythematosus) Qualifiers: Systemic lupus erythematosus type: unspecified Systemic lupus erythematosus organ involvement: unspecified Qualified Code(s): M32.9 - Systemic lupus erythematosus, unspecified Is this a current diagnosis for this admission?: Yes (10) Crack cocaine use Is this a current diagnosis for this admission?: Yes - Time Time Spent with patient: 25-34 minutes - Plan Summary Plan Summary: Replace magnesium and potassium and recheck electrolytes in the morning. Begin total parenteral nutrition. Continue current antibiotics for now. We will continue to follow. Discussed case with surgical service.
[2016-10-16 12:34] LABS: HEMATOCRIT 32.6 % (36.0-47.0); HGB HCT DIFFERENCE 0.4; MEAN CORPUSCULAR HEMOGLOBIN 26.9 pg (27.0-33.4); MEAN CORPUSCULAR HGB CONC 33.8 g/dL (32.0-36.0); MEAN CORPUSCULAR VOLUME 80 fl (80-97); RED CELL DISTRIBUTION WIDTH 18.1 % (11.5-14.0); WHITE BLOOD COUNT 5.9 10^3/uL (4.0-10.5)
[2016-10-16] MEDS: MAGNESIUM SULFATE/D5W 100 ML IV SCH ×2 (12:34→14:19)
[2016-10-16] MEDS: POTASSI CL 20 MEQ/50 ML RIDER 20 MEQ/50 ML RTUPB IV SCH ×4 (12:35→18:38)
[2016-10-16 12:39] LABS: PROTHROMBIN TIME 16.5 SEC (11.4-15.4)
[2016-10-16 12:48] LABS: ALANINE AMINOTRANSFERASE 32 U/L (9-52); ALBUMIN 2.7 g/dL (3.5-5.0); ALKALINE PHOSPHATASE 60 U/L (38-126); ANION GAP 11 (5-19); ASPARTATE AMINO TRANSFERASE 29 U/L (14-36); BILIRUBIN,TOTAL 0.6 mg/dL (0.2-1.3); CALCIUM 7.9 mg/dL (8.4-10.2); CARBON DIOXIDE 20 mmol/L (22-30); CHLORIDE 106 mmol/L (98-107); CREATININE RESULT 0.51 mg/dL (0.52-1.25); GLUCOSE 78 mg/dL (75-110); MAGNESIUM 1.4 mg/dL (1.6-2.3); PHOSPHORUS 4.1 mg/dL (2.5-4.5); POTASSIUM 3.2 mmol/L (3.6-5.0); SODIUM 137.1 mmol/L (137-145); TOTAL PROTEIN 6.5 g/dL (6.3-8.2); TRIGLYCERIDES 164 mg/dL (<150)
[2016-10-16 12:54] LABS: PREALBUMIN 7.2 mg/dL (17.6-36.0)
--- NOTE | 2016-10-16 12:54 | PDOC PROGRESS REPORT ---
Subjective Progress Note for:: 10/16/16 Subjective:: Complaining of abdominal pain. Nasogastric tube draining copious bilious contents. Physical Exam Vital Signs: Temp Pulse Resp BP Pulse Ox 98.2 F 86 16 138/93 H 100 10/16/16 07:45 10/16/16 07:45 10/16/16 07:45 10/16/16 07:45 10/16/16 07:45 Intake & Output 10/15/16 10/16/16 10/17/16 06:59 06:59 06:59 Intake Total 2773 3000 Output Total 450 350 Balance 2323 2650 Weight 54 kg 53.5 kg General appearance: PRESENT: mild distress GI/Abdominal exam: PRESENT: other - Abdomen is slightly distended; lorraine in place; drain right upper quadrant removed. There are no peritoneal signs but minimal guarding. nasogastric tube in position. Results Laboratory Results: 10/16/16 12:17 10/16/16 10/16/16 05:45 12:17 WBC 5.9 RBC 4.10 Hgb 11.0 L Hct 32.6 L MCV 80 MCH 26.9 L MCHC 33.8 RDW 18.1 H Plt Count 130 L Sodium 137.1 Potassium 3.2 L Chloride 107 Carbon Dioxide 23 Anion Gap 7 BUN < 2 L Creatinine 0.55 Est GFR ( Amer) > 60 Est GFR (Non-Af Amer) > 60 Glucose 90 Calcium 7.7 L Magnesium 1.4 L Impressions: Chest X-Ray 10/09/16 00:00 IMPRESSION: Bibasilar consolidation. Small bilateral pleural effusions. Endotracheal tube tip overlies the mid trachea. Right IJ central venous catheter tip overlies the right atrium. Nasogastric catheter overlies the body of the stomach. Drainage catheter is present over the epigastric region. Abdomen CT 10/09/16 18:02 IMPRESSION: Intraperitoneal gas is present across the upper abdomen as well as in the gallbladder fossa. Diffuse inflammatory changes and moderately large amount of free fluid are present throughout the abdomen and pelvis. Upper GI Series 10/13/16 07:00 IMPRESSION: POSTOPERATIVE CHANGES SEEN OF THE DISTAL STOMACH AND PROXIMAL DUODENUM WITHOUT EVIDENCE OF EXTRAVASATION OR LEAK OF CONTRAST. MILD POSTOPERATIVE EDEMA IS SEEN ALONG THE PROXIMAL DUODENUM. ESOPHAGEAL DYSMOTILITY IS NOTED. Assessment & Plan - Diagnosis (1) Perforated duodenal ulcer Is this a current diagnosis for this admission?: YesPlan: Now 1 weeks status post exporter laparotomy, oversewing of peptic ulcer, with with postoperative day 3 contrast study showing patency of the distal stomach and duodenum with only mild the coastal edema; however clinically patient appears have an element of gastric outlet obstruction. I suggest we continue nasogastric decompression; she is malnourished, and will be catabolic for some time. Therefore initiation of TPN as appropriate. Her central line is going on one-week duration; it will require change out in the next 24-48 hours.
[2016-10-16 12:55] LABS: BLOOD UREA NITROGEN < 2 mg/dL (7-20)
[2016-10-16] MEDS: AMINO ACIDS 5%/D25W 1,000 ML IV PRN (20:00)
[2016-10-17] MEDS: METRONIDAZOLE 500 MG/NS RTU 100 ML IV SCH ×4 (01:00→17:21)
[2016-10-17] MEDS: MORPHINE SULFATE 10 MG/ML INJ IV PRN ×5 (01:09→20:22)
[2016-10-17 07:04] LABS: ALANINE AMINOTRANSFERASE 31 U/L (9-52); ALBUMIN 2.7 g/dL (3.5-5.0); ALKALINE PHOSPHATASE 54 U/L (38-126); ANION GAP 10 (5-19); ASPARTATE AMINO TRANSFERASE 27 U/L (14-36); BILIRUBIN,TOTAL 0.3 mg/dL (0.2-1.3); BLOOD UREA NITROGEN 4 mg/dL (7-20); CALCIUM 8.1 mg/dL (8.4-10.2); CARBON DIOXIDE 24 mmol/L (22-30); CHLORIDE 106 mmol/L (98-107); CREATININE RESULT 0.55 mg/dL (0.52-1.25); GLUCOSE 144 mg/dL (75-110); MAGNESIUM 1.7 mg/dL (1.6-2.3); PHOSPHORUS 3.8 mg/dL (2.5-4.5); POTASSIUM 3.5 mmol/L (3.6-5.0); TOTAL PROTEIN 6.5 g/dL (6.3-8.2)
[2016-10-17 07:11] LABS: PREALBUMIN 7.6 mg/dL (17.6-36.0)
[2016-10-17 07:15] LABS: HEMATOCRIT 30.9 % (36.0-47.0); HEMOGLOBIN 10.3 g/dL (12.0-15.5); MEAN CORPUSCULAR HEMOGLOBIN 26.7 pg (27.0-33.4); MEAN CORPUSCULAR HGB CONC 33.3 g/dL (32.0-36.0); MEAN CORPUSCULAR VOLUME 80 fl (80-97); RED BLOOD COUNT 3.87 10^6/uL (3.72-5.28); RED CELL DISTRIBUTION WIDTH 18.4 % (11.5-14.0); WHITE BLOOD COUNT 5.3 10^3/uL (4.0-10.5)
[2016-10-17] MEDS ORDERED: PIPERACILLIN/TAZOBACTAM 3.375 GM VIAL IV SCH (09:00)
--- NOTE | 2016-10-17 09:07 | PDOC PROGRESS REPORT ---
Subjective Progress Note for:: 10/17/16 Subjective:: Patient remains hypokalemic but magnesium already corrected. Still having increased output from the nasogastric tube. Off the LANG drain. Denies diarrhea or nausea or vomiting. Denies shortness of breath or fever. Started on TPN yesterday. Physical Exam Vital Signs: Temp Pulse Resp BP Pulse Ox 98.3 F 89 16 124/87 H 100 10/17/16 07:33 10/17/16 07:33 10/17/16 07:33 10/17/16 07:33 10/17/16 07:33 Intake & Output 10/16/16 10/17/16 10/18/16 06:59 06:59 06:59 Intake Total 3000 1765 Output Total 350 870 Balance 2650 895 Weight 53.5 kg 53.5 kg General appearance: PRESENT: no acute distress, cooperative, thin Head exam: PRESENT: normocephalic Eye exam: PRESENT: conjunctiva pale, EOMI Mouth exam: PRESENT: moist, neck supple Neck exam: ABSENT: JVD Respiratory exam: PRESENT: clear to auscultation rei. ABSENT: rhonchi, wheezes Cardiovascular exam: PRESENT: RRR. ABSENT: gallop GI/Abdominal exam: PRESENT: hypoactive bowel sounds, soft, tenderness - Mild diffusely Extremities exam: ABSENT: pedal edema Neurological exam: PRESENT: alert, awake, oriented to situation Skin exam: PRESENT: dry, warm. ABSENT: cyanosis Results Laboratory Results: 10/17/16 06:30 10/17/16 06:30 10/16/16 10/16/16 10/17/16 12:17 12:17 06:30 WBC 5.9 5.3 RBC 4.10 3.87 Hgb 11.0 L 10.3 L Hct 32.6 L 30.9 L MCV 80 80 MCH 26.9 L 26.7 L MCHC 33.8 33.3 RDW 18.1 H 18.4 H Plt Count 130 L 141 L Sodium 137.1 Potassium 3.2 L Chloride 106 Carbon Dioxide 20 L Anion Gap 11 BUN < 2 L Creatinine 0.51 L Est GFR ( Amer) > 60 Est GFR (Non-Af Amer) > 60 Glucose 78 Calcium 7.9 L Phosphorus 4.1 Magnesium 1.4 L Total Bilirubin 0.6 AST 29 ALT 32 Alkaline Phosphatase 60 Total Protein 6.5 Albumin 2.7 L Prealbumin 7.2 L Triglycerides 164 H 10/17/16 06:30 WBC RBC Hgb Hct MCV MCH MCHC RDW Plt Count Sodium 140.0 Potassium 3.5 L Chloride 106 Carbon Dioxide 24 Anion Gap 10 BUN 4 L Creatinine 0.55 Est GFR ( Amer) > 60 Est GFR (Non-Af Amer) > 60 Glucose 144 H Calcium 8.1 L Phosphorus 3.8 Magnesium 1.7 Total Bilirubin 0.3 AST 27 ALT 31 Alkaline Phosphatase 54 Total Protein 6.5 Albumin 2.7 L Prealbumin 7.6 L Triglycerides Impressions: Chest X-Ray 10/09/16 00:00 IMPRESSION: Bibasilar consolidation. Small bilateral pleural effusions. Endotracheal tube tip overlies the mid trachea. Right IJ central venous catheter tip overlies the right atrium. Nasogastric catheter overlies the body of the stomach. Drainage catheter is present over the epigastric region. Abdomen CT 10/09/16 18:02 IMPRESSION: Intraperitoneal gas is present across the upper abdomen as well as in the gallbladder fossa. Diffuse inflammatory changes and moderately large amount of free fluid are present throughout the abdomen and pelvis. Upper GI Series 10/13/16 07:00 IMPRESSION: POSTOPERATIVE CHANGES SEEN OF THE DISTAL STOMACH AND PROXIMAL DUODENUM WITHOUT EVIDENCE OF EXTRAVASATION OR LEAK OF CONTRAST. MILD POSTOPERATIVE EDEMA IS SEEN ALONG THE PROXIMAL DUODENUM. ESOPHAGEAL DYSMOTILITY IS NOTED. Assessment & Plan - Diagnosis (1) Hypotension Qualifiers: Hypotension type: unspecified hypotension type Qualified Code(s): I95.9 - Hypotension, unspecified Is this a current diagnosis for this admission?: Yes (2) Perforated duodenal ulcer Is this a current diagnosis for this admission?: Yes (3) Anemia of chronic disease Is this a current diagnosis for this admission?: Yes (4) Hypokalemia Is this a current diagnosis for this admission?: Yes (5) Essential hypertension Is this a current diagnosis for this admission?: Yes (6) Gastroesophageal reflux disease Qualifiers: Esophagitis presence: without esophagitis Qualified Code(s): K21.9 - Gastro-esophageal reflux disease without esophagitis Is this a current diagnosis for this admission?: Yes (7) Vasculitis Is this a current diagnosis for this admission?: Yes (8) Bilateral leg ulcer Is this a current diagnosis for this admission?: Yes (9) SLE (systemic lupus erythematosus) Qualifiers: Systemic lupus erythematosus type: unspecified Systemic lupus erythematosus organ involvement: unspecified Qualified Code(s): M32.9 - Systemic lupus erythematosus, unspecified Is this a current diagnosis for this admission?: Yes (10) Crack cocaine use Is this a current diagnosis for this admission?: Yes - Time Time Spent with patient: 25-34 minutes - Plan Summary Plan Summary: We are going to continue the TPN and discontinue D5 half-normal saline. We will renew the patient's Zosyn and continue all antibiotics. We will increase the potassium on the TPN and monitor electrolytes. Continue supportive care. We will continue to follow the patient.
[2016-10-17] MEDS: ENOXAPARIN SODIUM INJ 30 MG/0.3 ML DISP.SYRIN SUBCUT SCH (09:17)
[2016-10-17] MEDS: PIPERACILLIN SODIUM/TAZOBACTAM 3.375 GM in NORMAL SALINE 100 ML IV SCH ×2 (11:27→17:23)
[2016-10-17] MEDS ORDERED: MORPHINE SULFATE 10 MG/ML INJ ONE (14:56)
[2016-10-17] MEDS: AMINO ACIDS 5%/D25W 1,000 ML IV PRN (17:22)
--- NOTE | 2016-10-17 20:26 | PDOC PROGRESS REPORT ---
Subjective Progress Note for:: 10/17/16 Subjective:: Seen earlier today. Reports some nausea. Denying flatus and BMs to me, but nurse reports she had flatus and BM earlier. Physical Exam Vital Signs: Temp Pulse Resp BP Pulse Ox 98.1 F 96 22 H 127/90 H 98 10/17/16 15:10 10/17/16 15:10 10/17/16 15:10 10/17/16 15:10 10/17/16 15:10 Intake & Output 10/16/16 10/17/16 10/18/16 06:59 06:59 06:59 Intake Total 3000 1765 895 Output Total 350 870 Balance 2650 895 895 Weight 53.5 kg 53.5 kg General appearance: PRESENT: no acute distress Eye exam: PRESENT: EOMI GI/Abdominal exam: PRESENT: distended, soft, tenderness, other - Incision with scant amount of drainage at the midportion. Drainage is sanguinopurulent. 2 lorraine removed. Wound culture sent. Debrided with Q-tips and gauze. Packed with iodoform gauze. Dressing placed.. ABSENT: guarding, rebound Neurological exam: PRESENT: alert, oriented to situation Results Laboratory Results: 10/17/16 06:30 10/17/16 06:30 10/17/16 10/17/16 06:30 06:30 WBC 5.3 RBC 3.87 Hgb 10.3 L Hct 30.9 L MCV 80 MCH 26.7 L MCHC 33.3 RDW 18.4 H Plt Count 141 L Sodium 140.0 Potassium 3.5 L Chloride 106 Carbon Dioxide 24 Anion Gap 10 BUN 4 L Creatinine 0.55 Est GFR ( Amer) > 60 Est GFR (Non-Af Amer) > 60 Glucose 144 H Calcium 8.1 L Phosphorus 3.8 Magnesium 1.7 Total Bilirubin 0.3 AST 27 ALT 31 Alkaline Phosphatase 54 Total Protein 6.5 Albumin 2.7 L Prealbumin 7.6 L Impressions: Chest X-Ray 10/09/16 00:00 IMPRESSION: Bibasilar consolidation. Small bilateral pleural effusions. Endotracheal tube tip overlies the mid trachea. Right IJ central venous catheter tip overlies the right atrium. Nasogastric catheter overlies the body of the stomach. Drainage catheter is present over the epigastric region. Abdomen CT 10/09/16 18:02 IMPRESSION: Intraperitoneal gas is present across the upper abdomen as well as in the gallbladder fossa. Diffuse inflammatory changes and moderately large amount of free fluid are present throughout the abdomen and pelvis. Upper GI Series 10/13/16 07:00 IMPRESSION: POSTOPERATIVE CHANGES SEEN OF THE DISTAL STOMACH AND PROXIMAL DUODENUM WITHOUT EVIDENCE OF EXTRAVASATION OR LEAK OF CONTRAST. MILD POSTOPERATIVE EDEMA IS SEEN ALONG THE PROXIMAL DUODENUM. ESOPHAGEAL DYSMOTILITY IS NOTED. Assessment & Plan - Diagnosis (1) Perforated duodenal ulcer Is this a current diagnosis for this admission?: YesPlan: Good vitals and labs. Still with some distention and very limited bowel sounds as well as 850mL out previous shift, although only 50 out this shift so far. Partially open midline wound with some drainage.
[2016-10-18] MEDS: METRONIDAZOLE 500 MG/NS RTU 100 ML IV SCH ×4 (01:14→17:44)
[2016-10-18] MEDS: PIPERACILLIN SODIUM/TAZOBACTAM 3.375 GM in NORMAL SALINE 100 ML IV SCH ×3 (02:31→17:43)
[2016-10-18] MEDS: MORPHINE SULFATE 10 MG/ML INJ IV PRN ×8 (02:32→19:45)
[2016-10-18 06:44] LABS: ALANINE AMINOTRANSFERASE 26 U/L (9-52); ALBUMIN 2.8 g/dL (3.5-5.0); ALKALINE PHOSPHATASE 51 U/L (38-126); ANION GAP 8 (5-19); ASPARTATE AMINO TRANSFERASE 27 U/L (14-36); BILIRUBIN,TOTAL 0.4 mg/dL (0.2-1.3); BLOOD UREA NITROGEN 6 mg/dL (7-20); CARBON DIOXIDE 27 mmol/L (22-30); CHLORIDE 105 mmol/L (98-107); CREATININE RESULT 0.49 mg/dL (0.52-1.25); GLUCOSE 135 mg/dL (75-110); MAGNESIUM 1.5 mg/dL (1.6-2.3); PHOSPHORUS 3.8 mg/dL (2.5-4.5); POTASSIUM 3.6 mmol/L (3.6-5.0); SODIUM 139.7 mmol/L (137-145); TOTAL PROTEIN 6.7 g/dL (6.3-8.2)
[2016-10-18] MEDS: ENOXAPARIN SODIUM INJ 30 MG/0.3 ML DISP.SYRIN SUBCUT SCH (08:24)
--- NOTE | 2016-10-18 10:55 | PDOC PROGRESS REPORT ---
Subjective Progress Note for:: 10/18/16 Subjective:: Patient hypokalemia corrected but magnesium trended down. Still having increased output from the nasogastric tube. Off the LANG drain. Denies diarrhea or nausea or vomiting. Denies shortness of breath or fever. On TPN and IV antibiotics. Physical Exam Vital Signs: Temp Pulse Resp BP Pulse Ox 98.8 F 84 13 127/89 H 100 10/18/16 07:10 10/18/16 07:10 10/18/16 07:10 10/18/16 07:10 10/18/16 07:10 Intake & Output 10/17/16 10/18/16 10/19/16 06:59 06:59 06:59 Intake Total 1765 1838 Output Total 870 150 Balance 895 1688 Weight 53.5 kg 51.2 kg General appearance: PRESENT: no acute distress, cooperative, thin Head exam: PRESENT: normocephalic Eye exam: PRESENT: conjunctiva pale, EOMI Mouth exam: PRESENT: moist, neck supple Neck exam: ABSENT: JVD Respiratory exam: PRESENT: clear to auscultation rei. ABSENT: rhonchi, wheezes Cardiovascular exam: PRESENT: RRR. ABSENT: gallop GI/Abdominal exam: PRESENT: hypoactive bowel sounds, soft, tenderness - Mild diffusely. ABSENT: distended Extremities exam: ABSENT: pedal edema Neurological exam: PRESENT: alert, awake, oriented to situation Skin exam: PRESENT: dry, warm. ABSENT: cyanosis Results Laboratory Results: 10/17/16 06:30 10/18/16 05:10 10/18/16 05:10 Sodium 139.7 Potassium 3.6 Chloride 105 Carbon Dioxide 27 Anion Gap 8 BUN 6 L Creatinine 0.49 L Est GFR ( Amer) > 60 Est GFR (Non-Af Amer) > 60 Glucose 135 H Calcium 8.0 L Phosphorus 3.8 Magnesium 1.5 L Total Bilirubin 0.4 AST 27 ALT 26 Alkaline Phosphatase 51 Total Protein 6.7 Albumin 2.8 L Prealbumin 9.0 L Impressions: Chest X-Ray 10/09/16 00:00 IMPRESSION: Bibasilar consolidation. Small bilateral pleural effusions. Endotracheal tube tip overlies the mid trachea. Right IJ central venous catheter tip overlies the right atrium. Nasogastric catheter overlies the body of the stomach. Drainage catheter is present over the epigastric region. Abdomen CT 10/09/16 18:02 IMPRESSION: Intraperitoneal gas is present across the upper abdomen as well as in the gallbladder fossa. Diffuse inflammatory changes and moderately large amount of free fluid are present throughout the abdomen and pelvis. Upper GI Series 10/13/16 07:00 IMPRESSION: POSTOPERATIVE CHANGES SEEN OF THE DISTAL STOMACH AND PROXIMAL DUODENUM WITHOUT EVIDENCE OF EXTRAVASATION OR LEAK OF CONTRAST. MILD POSTOPERATIVE EDEMA IS SEEN ALONG THE PROXIMAL DUODENUM. ESOPHAGEAL DYSMOTILITY IS NOTED. Assessment & Plan - Diagnosis (1) Hypotension Qualifiers: Hypotension type: unspecified hypotension type Qualified Code(s): I95.9 - Hypotension, unspecified Is this a current diagnosis for this admission?: Yes (2) Perforated duodenal ulcer Is this a current diagnosis for this admission?: Yes (3) Anemia of chronic disease Is this a current diagnosis for this admission?: Yes (4) Hypokalemia Is this a current diagnosis for this admission?: Yes (5) Essential hypertension Is this a current diagnosis for this admission?: Yes (6) Gastroesophageal reflux disease Qualifiers: Esophagitis presence: without esophagitis Qualified Code(s): K21.9 - Gastro-esophageal reflux disease without esophagitis Is this a current diagnosis for this admission?: Yes (7) Vasculitis Is this a current diagnosis for this admission?: Yes (8) Bilateral leg ulcer Is this a current diagnosis for this admission?: Yes (9) SLE (systemic lupus erythematosus) Qualifiers: Systemic lupus erythematosus type: unspecified Systemic lupus erythematosus organ involvement: unspecified Qualified Code(s): M32.9 - Systemic lupus erythematosus, unspecified Is this a current diagnosis for this admission?: Yes (10) Crack cocaine use Is this a current diagnosis for this admission?: Yes - Time Time Spent with patient: 15-24 minutes - Plan Summary Plan Summary: Continue TPN. Continue antibiotics. We will keep extra potassium dose today in the TPN. We will increase magnesium in the TPN. Continue to monitor electrolytes. Continue supportive care. We will continue to follow.
[2016-10-18] MEDS: AMINO ACIDS 5%/D25W 1,000 ML IV PRN (17:44)
--- NOTE | 2016-10-18 21:03 | PDOC PROGRESS REPORT ---
Subjective Progress Note for:: 10/18/16 Subjective:: - V, +BM. Hungry and thirsty. Physical Exam Vital Signs: Temp Pulse Resp BP Pulse Ox 98.1 F 99 20 113/69 96 10/18/16 19:30 10/18/16 19:30 10/18/16 19:30 10/18/16 19:30 10/18/16 19:30 Intake & Output 10/17/16 10/18/16 10/19/16 06:59 06:59 06:59 Intake Total 1765 1838 882 Output Total 870 150 525 Balance 895 1688 357 Weight 53.5 kg 51.2 kg General appearance: PRESENT: no acute distress Head exam: PRESENT: normocephalic Eye exam: PRESENT: EOMI Mouth exam: PRESENT: tongue midline GI/Abdominal exam: PRESENT: distended - Still distended but less so., normal bowel sounds, soft, tenderness - Appropriate incisional tenderness., other - Portion of the upper part of the incision is open. Probed with Q-tips. Scant purulent material. Cleaned with gauze and hydrogen peroxide. Repacked with iodoform gauze, then dressed with gauze 4 x 4's and Medipore tape. Patient tolerated well. Neurological exam: PRESENT: alert, oriented to situation Psychiatric exam: PRESENT: normal mood Results Laboratory Results: 10/17/16 06:30 10/18/16 05:10 10/18/16 05:10 Sodium 139.7 Potassium 3.6 Chloride 105 Carbon Dioxide 27 Anion Gap 8 BUN 6 L Creatinine 0.49 L Est GFR ( Amer) > 60 Est GFR (Non-Af Amer) > 60 Glucose 135 H Calcium 8.0 L Phosphorus 3.8 Magnesium 1.5 L Total Bilirubin 0.4 AST 27 ALT 26 Alkaline Phosphatase 51 Total Protein 6.7 Albumin 2.8 L Prealbumin 9.0 L Impressions: Chest X-Ray 10/09/16 00:00 IMPRESSION: Bibasilar consolidation. Small bilateral pleural effusions. Endotracheal tube tip overlies the mid trachea. Right IJ central venous catheter tip overlies the right atrium. Nasogastric catheter overlies the body of the stomach. Drainage catheter is present over the epigastric region. Abdomen CT 10/09/16 18:02 IMPRESSION: Intraperitoneal gas is present across the upper abdomen as well as in the gallbladder fossa. Diffuse inflammatory changes and moderately large amount of free fluid are present throughout the abdomen and pelvis. Upper GI Series 10/13/16 07:00 IMPRESSION: POSTOPERATIVE CHANGES SEEN OF THE DISTAL STOMACH AND PROXIMAL DUODENUM WITHOUT EVIDENCE OF EXTRAVASATION OR LEAK OF CONTRAST. MILD POSTOPERATIVE EDEMA IS SEEN ALONG THE PROXIMAL DUODENUM. ESOPHAGEAL DYSMOTILITY IS NOTED. Assessment & Plan - Diagnosis (1) Perforated duodenal ulcer Is this a current diagnosis for this admission?: YesPlan: Normal bowel sounds, light drainage of NG tube, + BM, no vomiting. NG tube was pulled. Start clear liquids. Continue TPN.
[2016-10-19] MEDS: METRONIDAZOLE 500 MG/NS RTU 100 ML IV SCH ×5 (00:44→23:29)
[2016-10-19] MEDS: MORPHINE SULFATE 10 MG/ML INJ IV PRN ×7 (01:10→20:38)
[2016-10-19] MEDS: PIPERACILLIN SODIUM/TAZOBACTAM 3.375 GM in NORMAL SALINE 100 ML IV SCH ×3 (03:15→18:29)
[2016-10-19 06:00] LABS: HEMATOCRIT 29.9 % (36.0-47.0); HGB HCT DIFFERENCE 0.1; MEAN CORPUSCULAR HEMOGLOBIN 26.9 pg (27.0-33.4); MEAN CORPUSCULAR HGB CONC 33.4 g/dL (32.0-36.0); MEAN CORPUSCULAR VOLUME 81 fl (80-97); RED BLOOD COUNT 3.71 10^6/uL (3.72-5.28); RED CELL DISTRIBUTION WIDTH 18.5 % (11.5-14.0)
[2016-10-19 06:05] LABS: PROTHROMBIN TIME 15.9 SEC (11.4-15.4)
[2016-10-19 06:16] LABS: ALBUMIN 2.8 g/dL (3.5-5.0); ANION GAP 12 (5-19); BLOOD UREA NITROGEN 7 mg/dL (7-20); CARBON DIOXIDE 24 mmol/L (22-30); CHLORIDE 103 mmol/L (98-107); GLUCOSE 126 mg/dL (75-110); MAGNESIUM 1.7 mg/dL (1.6-2.3); PHOSPHORUS 3.9 mg/dL (2.5-4.5); POTASSIUM 3.9 mmol/L (3.6-5.0); SODIUM 139.2 mmol/L (137-145); TOTAL PROTEIN 6.8 g/dL (6.3-8.2)
[2016-10-19 06:20] LABS: CREATININE RESULT 0.49 mg/dL (0.52-1.25)
[2016-10-19 06:22] LABS: ALANINE AMINOTRANSFERASE 19 U/L (9-52); ALKALINE PHOSPHATASE 50 U/L (38-126); ASPARTATE AMINO TRANSFERASE 29 U/L (14-36); BILIRUBIN,TOTAL 0.4 mg/dL (0.2-1.3)
[2016-10-19 06:23] LABS: PREALBUMIN 11.8 mg/dL (17.6-36.0)
--- NOTE | 2016-10-19 09:07 | PDOC PROGRESS REPORT ---
Subjective Progress Note for:: 10/19/16 Subjective:: Patient hypokalemia corrected as well as magnesium. Nasogastric tube pulled out yesterday. Off the LANG drain for several days. Denies diarrhea or nausea or vomiting. Denies shortness of breath or fever. On TPN and IV antibiotics. Started on clear liquid diet. Physical Exam Vital Signs: Temp Pulse Resp BP Pulse Ox 98.1 F 84 18 117/77 99 10/19/16 07:15 10/19/16 07:15 10/19/16 07:15 10/19/16 07:15 10/19/16 07:15 Intake & Output 10/18/16 10/19/16 10/20/16 06:59 06:59 06:59 Intake Total 1838 2086 Output Total 150 525 Balance 1688 1561 Weight 51.2 kg 51.7 kg General appearance: PRESENT: no acute distress, cooperative Head exam: PRESENT: normocephalic Eye exam: PRESENT: EOMI Mouth exam: PRESENT: moist, neck supple Neck exam: ABSENT: JVD Respiratory exam: PRESENT: clear to auscultation rei. ABSENT: rhonchi, wheezes Cardiovascular exam: PRESENT: RRR. ABSENT: gallop GI/Abdominal exam: PRESENT: hypoactive bowel sounds, soft, tenderness - mildly Extremities exam: ABSENT: pedal edema Skin exam: PRESENT: dry, warm. ABSENT: cyanosis Results Laboratory Results: 10/19/16 05:15 10/19/16 05:15 10/19/16 10/19/16 05:15 05:15 WBC 5.0 RBC 3.71 L Hgb 10.0 L Hct 29.9 L MCV 81 MCH 26.9 L MCHC 33.4 RDW 18.5 H Plt Count 171 Sodium 139.2 Potassium 3.9 Chloride 103 Carbon Dioxide 24 Anion Gap 12 BUN 7 Creatinine 0.49 L Est GFR ( Amer) > 60 Est GFR (Non-Af Amer) > 60 Glucose 126 H Calcium 8.0 L Phosphorus 3.9 Magnesium 1.7 Total Bilirubin 0.4 AST 29 ALT 19 Alkaline Phosphatase 50 Total Protein 6.8 Albumin 2.8 L Prealbumin 11.8 L Impressions: Chest X-Ray 10/09/16 00:00 IMPRESSION: Bibasilar consolidation. Small bilateral pleural effusions. Endotracheal tube tip overlies the mid trachea. Right IJ central venous catheter tip overlies the right atrium. Nasogastric catheter overlies the body of the stomach. Drainage catheter is present over the epigastric region. Abdomen CT 10/09/16 18:02 IMPRESSION: Intraperitoneal gas is present across the upper abdomen as well as in the gallbladder fossa. Diffuse inflammatory changes and moderately large amount of free fluid are present throughout the abdomen and pelvis. Upper GI Series 10/13/16 07:00 IMPRESSION: POSTOPERATIVE CHANGES SEEN OF THE DISTAL STOMACH AND PROXIMAL DUODENUM WITHOUT EVIDENCE OF EXTRAVASATION OR LEAK OF CONTRAST. MILD POSTOPERATIVE EDEMA IS SEEN ALONG THE PROXIMAL DUODENUM. ESOPHAGEAL DYSMOTILITY IS NOTED. Assessment & Plan - Diagnosis (1) Hypotension Qualifiers: Hypotension type: unspecified hypotension type Qualified Code(s): I95.9 - Hypotension, unspecified Is this a current diagnosis for this admission?: Yes (2) Perforated duodenal ulcer Is this a current diagnosis for this admission?: Yes (3) Anemia of chronic disease Is this a current diagnosis for this admission?: Yes (4) Hypokalemia Is this a current diagnosis for this admission?: Yes (5) Essential hypertension Is this a current diagnosis for this admission?: Yes (6) Gastroesophageal reflux disease Qualifiers: Esophagitis presence: without esophagitis Qualified Code(s): K21.9 - Gastro-esophageal reflux disease without esophagitis Is this a current diagnosis for this admission?: Yes (7) Vasculitis Is this a current diagnosis for this admission?: Yes (8) Bilateral leg ulcer Is this a current diagnosis for this admission?: Yes (9) SLE (systemic lupus erythematosus) Qualifiers: Systemic lupus erythematosus type: unspecified Systemic lupus erythematosus organ involvement: unspecified Qualified Code(s): M32.9 - Systemic lupus erythematosus, unspecified Is this a current diagnosis for this admission?: Yes (10) Crack cocaine use Is this a current diagnosis for this admission?: Yes - Time Time Spent with patient: 15-24 minutes - Plan Summary Plan Summary: We will continue TPN and antibiotics. Once cleared by surgery to advance diet we will discontinue TPN at that time. In the meantime begin physical therapy and out of bed. On data supportive care. Continue to monitor electrolytes. We will continue to follow.
[2016-10-19] MEDS: ENOXAPARIN SODIUM INJ 40 MG/0.4 ML DISP.SYRIN SUBCUT SCH (09:17)
[2016-10-19] MEDS ORDERED: FAT EMULSIONS 250 ML IV SCH (10:00)
--- NOTE | 2016-10-19 13:51 | PDOC PROGRESS REPORT ---
Subjective Progress Note for:: 10/19/16 Subjective:: Patient is feeling better, no nausea or vomiting him a nasogastric tube out for 24 hours. Tolerating clear liquids. Physical Exam Vital Signs: Temp Pulse Resp BP Pulse Ox 98.2 F 98 18 124/88 H 100 10/19/16 11:19 10/19/16 11:19 10/19/16 11:19 10/19/16 11:19 10/19/16 11:19 Intake & Output 10/18/16 10/19/16 10/20/16 06:59 06:59 06:59 Intake Total 1838 2086 200 Output Total 150 525 Balance 1688 1561 200 Weight 51.2 kg 51.7 kg General appearance: PRESENT: no acute distress GI/Abdominal exam: PRESENT: soft - Soft nontender no peritoneal signs no rigidity less distention. Gunlock intact, tenderness Results Laboratory Results: 10/19/16 05:15 10/19/16 05:15 10/19/16 10/19/16 05:15 05:15 WBC 5.0 RBC 3.71 L Hgb 10.0 L Hct 29.9 L MCV 81 MCH 26.9 L MCHC 33.4 RDW 18.5 H Plt Count 171 Sodium 139.2 Potassium 3.9 Chloride 103 Carbon Dioxide 24 Anion Gap 12 BUN 7 Creatinine 0.49 L Est GFR ( Amer) > 60 Est GFR (Non-Af Amer) > 60 Glucose 126 H Calcium 8.0 L Phosphorus 3.9 Magnesium 1.7 Total Bilirubin 0.4 AST 29 ALT 19 Alkaline Phosphatase 50 Total Protein 6.8 Albumin 2.8 L Prealbumin 11.8 L Impressions: Chest X-Ray 10/09/16 00:00 IMPRESSION: Bibasilar consolidation. Small bilateral pleural effusions. Endotracheal tube tip overlies the mid trachea. Right IJ central venous catheter tip overlies the right atrium. Nasogastric catheter overlies the body of the stomach. Drainage catheter is present over the epigastric region. Abdomen CT 10/09/16 18:02 IMPRESSION: Intraperitoneal gas is present across the upper abdomen as well as in the gallbladder fossa. Diffuse inflammatory changes and moderately large amount of free fluid are present throughout the abdomen and pelvis. Upper GI Series 10/13/16 07:00 IMPRESSION: POSTOPERATIVE CHANGES SEEN OF THE DISTAL STOMACH AND PROXIMAL DUODENUM WITHOUT EVIDENCE OF EXTRAVASATION OR LEAK OF CONTRAST. MILD POSTOPERATIVE EDEMA IS SEEN ALONG THE PROXIMAL DUODENUM. ESOPHAGEAL DYSMOTILITY IS NOTED. Assessment & Plan - Diagnosis (1) Perforated duodenal ulcer Is this a current diagnosis for this admission?: YesPlan: Now 1 weeks status post exporter laparotomy, oversewing of peptic ulcer, with with postoperative day 3 contrast study showing patency of the distal stomach and duodenum with only mild the coastal edema; however clinically patient appears have an element of gastric outlet obstruction. I suggest we continue nasogastric decompression; she is malnourished, and will be catabolic for some time. Therefore initiation of TPN as appropriate. (2) Perforated bowel Is this a current diagnosis for this admission?: YesPlan: Patient is now 10 days status post exploratory laparotomy, Demar patch repair of perforated duodenal ulcer, tolerating clear liquid diet, with reliable flatus and stool. Plan: Will Gil diet to full liquids, increase ambulation. If patient tolerates this well, hopefully we can stop TPN and get the central line out as it has been in for over 10 days.
[2016-10-20] MEDS: MORPHINE SULFATE 10 MG/ML INJ IV PRN ×7 (00:23→21:31)
[2016-10-20] MEDS: PIPERACILLIN SODIUM/TAZOBACTAM 3.375 GM in NORMAL SALINE 100 ML IV SCH ×3 (02:27→18:12)
[2016-10-20] MEDS: METRONIDAZOLE 500 MG/NS RTU 100 ML IV SCH ×3 (05:27→18:12)
[2016-10-20 06:09] LABS: HEMATOCRIT 27.4 % (36.0-47.0); HEMOGLOBIN 9.3 g/dL (12.0-15.5); HGB HCT DIFFERENCE 0.5; MEAN CORPUSCULAR HEMOGLOBIN 26.8 pg (27.0-33.4); MEAN CORPUSCULAR HGB CONC 33.8 g/dL (32.0-36.0); MEAN CORPUSCULAR VOLUME 79 fl (80-97); RED BLOOD COUNT 3.46 10^6/uL (3.72-5.28); RED CELL DISTRIBUTION WIDTH 18.7 % (11.5-14.0); WHITE BLOOD COUNT 4.1 10^3/uL (4.0-10.5)
[2016-10-20 06:26] LABS: ANION GAP 9 (5-19); BLOOD UREA NITROGEN 8 mg/dL (7-20); CALCIUM 7.8 mg/dL (8.4-10.2); CARBON DIOXIDE 24 mmol/L (22-30); CHLORIDE 102 mmol/L (98-107); CREATININE RESULT 0.49 mg/dL (0.52-1.25); GLUCOSE 81 mg/dL (75-110); MAGNESIUM 1.4 mg/dL (1.6-2.3); POTASSIUM 3.8 mmol/L (3.6-5.0); SODIUM 135.3 mmol/L (137-145)
[2016-10-20] MEDS: ENOXAPARIN SODIUM INJ 40 MG/0.4 ML DISP.SYRIN SUBCUT SCH (08:07)
--- NOTE | 2016-10-20 12:10 | PDOC PROGRESS REPORT ---
Subjective Progress Note for:: 10/20/16 Subjective:: Had liquids for breakfast this morning and asked when she can increase her diet. Physical Exam Vital Signs: Temp Pulse Resp BP Pulse Ox 98.4 F 84 18 104/68 94 10/20/16 07:26 10/20/16 07:26 10/20/16 07:26 10/20/16 07:26 10/20/16 07:26 Intake & Output 10/19/16 10/20/16 10/21/16 06:59 06:59 06:59 Intake Total 2086 2665 Output Total 525 Balance 1561 2665 Weight 51.7 kg 52.9 kg General appearance: PRESENT: no acute distress Head exam: PRESENT: atraumatic, normocephalic Eye exam: PRESENT: conjunctiva pink Ear exam: PRESENT: normal external ear exam Mouth exam: PRESENT: moist, tongue midline Neck exam: ABSENT: JVD Respiratory exam: PRESENT: clear to auscultation rei. ABSENT: rales, rhonchi, wheezes Cardiovascular exam: PRESENT: RRR. ABSENT: diastolic murmur, rubs, systolic murmur GI/Abdominal exam: PRESENT: normal bowel sounds, soft Extremities exam: ABSENT: calf tenderness, clubbing, pedal edema Neurological exam: PRESENT: alert, awake, oriented to person, oriented to place , oriented to time, oriented to situation Psychiatric exam: PRESENT: appropriate affect Skin exam: PRESENT: dry, intact, warm. ABSENT: cyanosis, rash Results Laboratory Results: 10/20/16 05:35 10/20/16 05:35 10/19/16 10/20/16 10/20/16 16:08 05:35 05:35 WBC 4.1 RBC 3.46 L Hgb 9.3 L Hct 27.4 L MCV 79 L MCH 26.8 L MCHC 33.8 RDW 18.7 H Plt Count 164 Sodium 135.3 L Potassium 3.8 Chloride 102 Carbon Dioxide 24 Anion Gap 9 BUN 8 Creatinine 0.49 L Est GFR ( Amer) > 60 Est GFR (Non-Af Amer) > 60 Glucose 81 Calcium 7.8 L Magnesium 1.4 L Triglycerides 108 10/17/16 14:55 Abdomen - Not Specified Gram Stain - Final Impressions: Chest X-Ray 10/09/16 00:00 IMPRESSION: Bibasilar consolidation. Small bilateral pleural effusions. Endotracheal tube tip overlies the mid trachea. Right IJ central venous catheter tip overlies the right atrium. Nasogastric catheter overlies the body of the stomach. Drainage catheter is present over the epigastric region. Abdomen CT 10/09/16 18:02 IMPRESSION: Intraperitoneal gas is present across the upper abdomen as well as in the gallbladder fossa. Diffuse inflammatory changes and moderately large amount of free fluid are present throughout the abdomen and pelvis. Upper GI Series 10/13/16 07:00 IMPRESSION: POSTOPERATIVE CHANGES SEEN OF THE DISTAL STOMACH AND PROXIMAL DUODENUM WITHOUT EVIDENCE OF EXTRAVASATION OR LEAK OF CONTRAST. MILD POSTOPERATIVE EDEMA IS SEEN ALONG THE PROXIMAL DUODENUM. ESOPHAGEAL DYSMOTILITY IS NOTED. Assessment & Plan - Diagnosis (1) Hypotension Qualifiers: Hypotension type: unspecified hypotension type Qualified Code(s): I95.9 - Hypotension, unspecified Is this a current diagnosis for this admission?: YesPlan: Her blood pressure has remained stable. (2) Perforated bowel Is this a current diagnosis for this admission?: YesPlan: This was secondary to a duodenal ulcer which was surgically repaired. The patient is currently on TPN. This can be DC'd when she is tolerating a diet. (3) Duodenal ulcer Is this a current diagnosis for this admission?: YesPlan: Patient had surgery for repair of this (4) SLE (systemic lupus erythematosus) Qualifiers: Systemic lupus erythematosus type: unspecified Systemic lupus erythematosus organ involvement: unspecified Qualified Code(s): M32.9 - Systemic lupus erythematosus, unspecified Is this a current diagnosis for this admission?: YesPlan: Patient has complications with vasculitis of her legs. (5) Vasculitis Is this a current diagnosis for this admission?: YesPlan: Patient has problems with vasculitis of the lower extremities with large wounds. (6) Bilateral leg ulcer Is this a current diagnosis for this admission?: YesPlan: Secondary to vasculitis. We'll continue local wound care. (7) Anemia of chronic disease Is this a current diagnosis for this admission?: YesPlan: Hemoglobin has remained stable. (8) Essential hypertension Is this a current diagnosis for this admission?: YesPlan: We'll hold antihypertensives for now. (9) Gastroesophageal reflux disease Qualifiers: Esophagitis presence: without esophagitis Qualified Code(s): K21.9 - Gastro-esophageal reflux disease without esophagitis Is this a current diagnosis for this admission?: YesPlan: Patient had a duodenal ulcer. (10) Crack cocaine use Is this a current diagnosis for this admission?: YesPlan: The patient tested positive for cocaine. This is contributing to some of the problems with her vasculitis of her legs. - Time Time Spent with patient: 25-34 minutes - Inpatient Certification Medical Necessity: Need For IV Fluids
--- NOTE | 2016-10-20 14:18 | PDOC PROGRESS REPORT ---
Subjective Progress Note for:: 10/20/16 Subjective:: patient is feeling better, tolerated full liquid diet, no fever. Physical Exam Vital Signs: Temp Pulse Resp BP Pulse Ox 98.6 F 95 16 107/66 100 10/20/16 11:24 10/20/16 11:24 10/20/16 11:24 10/20/16 11:24 10/20/16 11:24 Intake & Output 10/19/16 10/20/16 10/21/16 06:59 06:59 06:59 Intake Total 2086 2665 844 Output Total 525 Balance 1561 2665 844 Weight 51.7 kg 52.9 kg General appearance: PRESENT: no acute distress, cooperative Head exam: PRESENT: atraumatic, normocephalic GI/Abdominal exam: PRESENT: soft. ABSENT: firm, guarding, rebound, rigid, tenderness - Incision is clean, the skin is partially open with packing in place , no erythema. Neurological exam: PRESENT: alert, awake Results Laboratory Results: 10/20/16 05:35 10/20/16 05:35 10/19/16 10/20/16 10/20/16 16:08 05:35 05:35 WBC 4.1 RBC 3.46 L Hgb 9.3 L Hct 27.4 L MCV 79 L MCH 26.8 L MCHC 33.8 RDW 18.7 H Plt Count 164 Sodium 135.3 L Potassium 3.8 Chloride 102 Carbon Dioxide 24 Anion Gap 9 BUN 8 Creatinine 0.49 L Est GFR ( Amer) > 60 Est GFR (Non-Af Amer) > 60 Glucose 81 Calcium 7.8 L Magnesium 1.4 L Triglycerides 108 10/17/16 14:55 Abdomen - Not Specified Gram Stain - Final 10/17/16 14:55 Abdomen - Not Specified Wound Culture - Final E.faecium Vre No Anaerobic Organisms Impressions: Chest X-Ray 10/09/16 00:00 IMPRESSION: Bibasilar consolidation. Small bilateral pleural effusions. Endotracheal tube tip overlies the mid trachea. Right IJ central venous catheter tip overlies the right atrium. Nasogastric catheter overlies the body of the stomach. Drainage catheter is present over the epigastric region. Abdomen CT 10/09/16 18:02 IMPRESSION: Intraperitoneal gas is present across the upper abdomen as well as in the gallbladder fossa. Diffuse inflammatory changes and moderately large amount of free fluid are present throughout the abdomen and pelvis. Upper GI Series 10/13/16 07:00 IMPRESSION: POSTOPERATIVE CHANGES SEEN OF THE DISTAL STOMACH AND PROXIMAL DUODENUM WITHOUT EVIDENCE OF EXTRAVASATION OR LEAK OF CONTRAST. MILD POSTOPERATIVE EDEMA IS SEEN ALONG THE PROXIMAL DUODENUM. ESOPHAGEAL DYSMOTILITY IS NOTED. Assessment & Plan - Diagnosis (1) Perforated duodenal ulcer Is this a current diagnosis for this admission?: YesPlan: s/p ex lap and repair of duodenal ulcer with verónica patch POD10, she is doing better, Wound culture showing VRE. Plan: Advance diet, OOB, wound care with packing, replace electrolytes.
[2016-10-20] MEDS: MAGNESIUM SULFATE 1 GM/D5W 100 ML IV SCH ×2 (14:25→15:51)
[2016-10-21] MEDS: METRONIDAZOLE 500 MG/NS RTU 100 ML IV SCH ×2 (01:05→05:48)
[2016-10-21] MEDS: MORPHINE SULFATE 10 MG/ML INJ IV PRN ×2 (01:05→05:56)
[2016-10-21] MEDS: PIPERACILLIN SODIUM/TAZOBACTAM 3.375 GM in NORMAL SALINE 100 ML IV SCH ×2 (01:56→10:05)
[2016-10-21 06:49] LABS: ABSOLUTE LYMPHOCYTES (AUTO) 1.2 10^3/uL (0.5-4.7); ABSOLUTE MONOCYTES (AUTO) 0.7 10^3/uL (0.1-1.4); ABSOLUTE NEUT (AUTO) 2.7 10^3/uL (1.7-8.2); BASOPHILS % (AUTO) 0.7 % (0-2); EOSINOPHILS % (AUTO) 0.1 % (0-6); HEMATOCRIT 27.7 % (36.0-47.0); HEMOGLOBIN 9.4 g/dL (12.0-15.5); HGB HCT DIFFERENCE 0.5; LYMPHOCYTES % (AUTO) 26.4 % (13-45); MEAN CORPUSCULAR HEMOGLOBIN 26.6 pg (27.0-33.4); MEAN CORPUSCULAR VOLUME 78 fl (80-97); MONOCYTES % (AUTO) 14.5 % (3-13); RED BLOOD COUNT 3.54 10^6/uL (3.72-5.28); RED CELL DISTRIBUTION WIDTH 18.7 % (11.5-14.0); SEGMENTED NEUTROPHILS % (AUTO) 58.3 % (42-78); WHITE BLOOD COUNT 4.6 10^3/uL (4.0-10.5)
[2016-10-21 07:09] LABS: ANION GAP 9 (5-19); BLOOD UREA NITROGEN 4 mg/dL (7-20); CALCIUM 7.9 mg/dL (8.4-10.2); CARBON DIOXIDE 26 mmol/L (22-30); CHLORIDE 103 mmol/L (98-107); CREATININE RESULT 0.56 mg/dL (0.52-1.25); GLUCOSE 76 mg/dL (75-110); SODIUM 137.7 mmol/L (137-145)
[2016-10-21] MEDS ORDERED: DEXTROSE 40% GEL 15 GM TUBE PO PRN (08:07)
[2016-10-21] MEDS ORDERED: DEXTROSE 40% GEL 15 GM TUBE X 2 PO PRN (08:07)
[2016-10-21] MEDS ORDERED: PROMETHAZINE HCL 25 MG TABLET PO PRN (08:08)
[2016-10-21] MEDS ORDERED: LINEZOLID 600 MG TABLET NG SCH (10:00)
[2016-10-21] MEDS: LINEZOLID 600 MG TABLET PO SCH ×2 (10:03→22:27)
[2016-10-21] MEDS: OXYCODONE-ACETAMINOPHEN 5-325 MG TABLET PO PRN ×4 (10:03→22:27)
[2016-10-21] MEDS: ENOXAPARIN SODIUM INJ 40 MG/0.4 ML DISP.SYRIN SUBCUT SCH (10:04)
[2016-10-21] MEDS ORDERED: METRONIDAZOLE 500 MG TABLET NG ONE (13:00)
--- NOTE | 2016-10-21 13:35 | PDOC PROGRESS REPORT ---
Subjective Progress Note for:: 10/21/16 Subjective:: Complaints of feeling cold. Has tolerated diet with minimal difficulty. Physical Exam Vital Signs: Temp Pulse Resp BP Pulse Ox 98.4 F 92 16 128/78 H 99 10/21/16 07:43 10/21/16 07:43 10/21/16 07:43 10/21/16 07:43 10/21/16 07:43 Intake & Output 10/20/16 10/21/16 10/22/16 06:59 06:59 06:59 Intake Total 2665 2913 Output Total 300 Balance 2665 2613 Weight 52.9 kg 52.8 kg General appearance: PRESENT: no acute distress Eye exam: PRESENT: conjunctiva pink Mouth exam: PRESENT: moist, tongue midline Neck exam: ABSENT: JVD Respiratory exam: PRESENT: clear to auscultation rei. ABSENT: rales, rhonchi, wheezes Cardiovascular exam: PRESENT: RRR. ABSENT: diastolic murmur, rubs, systolic murmur GI/Abdominal exam: PRESENT: normal bowel sounds, soft, other - Surgical dressing in place.. ABSENT: distended, guarding, mass, organolmegaly, rebound, tenderness Extremities exam: PRESENT: other - Patient has dressings on bilateral legs. Psychiatric exam: PRESENT: appropriate affect Results Laboratory Results: 10/21/16 06:00 10/21/16 06:00 10/21/16 10/21/16 06:00 06:00 WBC 4.6 RBC 3.54 L Hgb 9.4 L Hct 27.7 L MCV 78 L MCH 26.6 L MCHC 34.0 RDW 18.7 H Plt Count 199 Seg Neutrophils % 58.3 Lymphocytes % 26.4 Monocytes % 14.5 H Eosinophils % 0.1 Basophils % 0.7 Absolute Neutrophils 2.7 Absolute Lymphocytes 1.2 Absolute Monocytes 0.7 Absolute Eosinophils 0.0 Absolute Basophils 0.0 Sodium 137.7 Potassium 4.0 Chloride 103 Carbon Dioxide 26 Anion Gap 9 BUN 4 L Creatinine 0.56 Est GFR ( Amer) > 60 Est GFR (Non-Af Amer) > 60 Glucose 76 Calcium 7.9 L 10/17/16 14:55 Abdomen - Not Specified Gram Stain - Final 10/17/16 14:55 Abdomen - Not Specified Wound Culture - Final E.faecium Vre No Anaerobic Organisms Impressions: Chest X-Ray 10/09/16 00:00 IMPRESSION: Bibasilar consolidation. Small bilateral pleural effusions. Endotracheal tube tip overlies the mid trachea. Right IJ central venous catheter tip overlies the right atrium. Nasogastric catheter overlies the body of the stomach. Drainage catheter is present over the epigastric region. Abdomen CT 10/09/16 18:02 IMPRESSION: Intraperitoneal gas is present across the upper abdomen as well as in the gallbladder fossa. Diffuse inflammatory changes and moderately large amount of free fluid are present throughout the abdomen and pelvis. Upper GI Series 10/13/16 07:00 IMPRESSION: POSTOPERATIVE CHANGES SEEN OF THE DISTAL STOMACH AND PROXIMAL DUODENUM WITHOUT EVIDENCE OF EXTRAVASATION OR LEAK OF CONTRAST. MILD POSTOPERATIVE EDEMA IS SEEN ALONG THE PROXIMAL DUODENUM. ESOPHAGEAL DYSMOTILITY IS NOTED. Assessment & Plan - Diagnosis (1) Hypotension Qualifiers: Hypotension type: unspecified hypotension type Qualified Code(s): I95.9 - Hypotension, unspecified Is this a current diagnosis for this admission?: YesPlan: Her blood pressure has remained stable. (2) Perforated bowel Is this a current diagnosis for this admission?: YesPlan: This was secondary to a duodenal ulcer which was surgically repaired. The patient is tolerating a diet well. She has grown out enterococcus from her wound and has been started on Zyvox. (3) Duodenal ulcer Is this a current diagnosis for this admission?: YesPlan: Patient had surgery for repair of this (4) SLE (systemic lupus erythematosus) Qualifiers: Systemic lupus erythematosus type: unspecified Systemic lupus erythematosus organ involvement: unspecified Qualified Code(s): M32.9 - Systemic lupus erythematosus, unspecified Is this a current diagnosis for this admission?: YesPlan: Patient has complications with vasculitis of her legs. (5) Vasculitis Is this a current diagnosis for this admission?: YesPlan: Patient has problems with vasculitis of the lower extremities with large wounds. (6) Bilateral leg ulcer Is this a current diagnosis for this admission?: YesPlan: Secondary to vasculitis. We'll continue local wound care. (7) Anemia of chronic disease Is this a current diagnosis for this admission?: YesPlan: Hemoglobin has remained stable. (8) Essential hypertension Is this a current diagnosis for this admission?: YesPlan: We'll hold antihypertensives for now. (9) Gastroesophageal reflux disease Qualifiers: Esophagitis presence: without esophagitis Qualified Code(s): K21.9 - Gastro-esophageal reflux disease without esophagitis Is this a current diagnosis for this admission?: YesPlan: Patient had a duodenal ulcer. (10) Crack cocaine use Is this a current diagnosis for this admission?: YesPlan: The patient tested positive for cocaine. This is contributing to some of the problems with her vasculitis of her legs. - Time Time Spent with patient: 25-34 minutes - Inpatient Certification Medical Necessity: Need Close Monitoring Due to Risk of Patient Decompensation
[2016-10-21] MEDS: METRONIDAZOLE 500 MG TABLET NG SCH ×2 (18:13→23:53)
[2016-10-22] MEDS: METRONIDAZOLE 500 MG TABLET NG SCH ×3 (05:53→19:10)
--- NOTE | 2016-10-22 06:55 | PDOC PROGRESS REPORT ---
Subjective Progress Note for:: 10/22/16 Subjective:: Seen earlier in the day. Denies nausea or vomiting. + BM/flatus. Tolerating diet. Physical Exam Vital Signs: Temp Pulse Resp BP Pulse Ox 98.1 F 75 16 134/84 H 100 10/22/16 00:16 10/22/16 02:00 10/22/16 00:16 10/22/16 00:16 10/22/16 00:16 Intake & Output 10/20/16 10/21/16 10/22/16 06:59 06:59 06:59 Intake Total 2665 2913 1470 Output Total 300 750 Balance 2665 2613 720 Weight 52.9 kg 52.8 kg 52.4 kg General appearance: PRESENT: no acute distress, thin Eye exam: PRESENT: EOMI Mouth exam: PRESENT: tongue midline GI/Abdominal exam: PRESENT: normal bowel sounds, soft. ABSENT: distended, tenderness - Nontender except when wound cares done. Wound care: All dressings removed. Old iodoform gauzes removed. Wound is debrided with Q-tips, hydrogen peroxide and gauze. Quarter-inch iodoform gauze was packed into wound. Wound is covered with 4 x 4's and Medipore tape. Neurological exam: PRESENT: alert, oriented to situation Results Laboratory Results: 10/21/16 06:00 10/21/16 06:00 10/21/16 10/21/16 06:00 06:00 WBC 4.6 RBC 3.54 L Hgb 9.4 L Hct 27.7 L MCV 78 L MCH 26.6 L MCHC 34.0 RDW 18.7 H Plt Count 199 Seg Neutrophils % 58.3 Lymphocytes % 26.4 Monocytes % 14.5 H Eosinophils % 0.1 Basophils % 0.7 Absolute Neutrophils 2.7 Absolute Lymphocytes 1.2 Absolute Monocytes 0.7 Absolute Eosinophils 0.0 Absolute Basophils 0.0 Sodium 137.7 Potassium 4.0 Chloride 103 Carbon Dioxide 26 Anion Gap 9 BUN 4 L Creatinine 0.56 Est GFR ( Amer) > 60 Est GFR (Non-Af Amer) > 60 Glucose 76 Calcium 7.9 L Impressions: Chest X-Ray 10/09/16 00:00 IMPRESSION: Bibasilar consolidation. Small bilateral pleural effusions. Endotracheal tube tip overlies the mid trachea. Right IJ central venous catheter tip overlies the right atrium. Nasogastric catheter overlies the body of the stomach. Drainage catheter is present over the epigastric region. Abdomen CT 10/09/16 18:02 IMPRESSION: Intraperitoneal gas is present across the upper abdomen as well as in the gallbladder fossa. Diffuse inflammatory changes and moderately large amount of free fluid are present throughout the abdomen and pelvis. Upper GI Series 10/13/16 07:00 IMPRESSION: POSTOPERATIVE CHANGES SEEN OF THE DISTAL STOMACH AND PROXIMAL DUODENUM WITHOUT EVIDENCE OF EXTRAVASATION OR LEAK OF CONTRAST. MILD POSTOPERATIVE EDEMA IS SEEN ALONG THE PROXIMAL DUODENUM. ESOPHAGEAL DYSMOTILITY IS NOTED. Assessment & Plan - Diagnosis (1) Perforated duodenal ulcer Is this a current diagnosis for this admission?: YesPlan: Doing well. Continue soft diet. All medications now oral. Remove central line. Continue daily wound care.
[2016-10-22] MEDS: OXYCODONE-ACETAMINOPHEN 5-325 MG TABLET PO PRN ×4 (07:44→19:09)
[2016-10-22] MEDS: ENOXAPARIN SODIUM INJ 40 MG/0.4 ML DISP.SYRIN SUBCUT SCH (07:45)
--- NOTE | 2016-10-22 10:37 | PDOC PROGRESS REPORT ---
Subjective Progress Note for:: 10/22/16 Subjective:: No complaints. Has tolerated diet with minimal difficulty. Physical Exam Vital Signs: Temp Pulse Resp BP Pulse Ox 98.2 F 74 16 116/71 100 10/22/16 08:12 10/22/16 08:12 10/22/16 08:12 10/22/16 08:12 10/22/16 08:12 Intake & Output 10/21/16 10/22/16 10/23/16 06:59 06:59 06:59 Intake Total 2913 1470 Output Total 300 750 Balance 2613 720 Weight 52.8 kg 52.4 kg General appearance: PRESENT: no acute distress Eye exam: PRESENT: conjunctiva pink Mouth exam: PRESENT: moist, tongue midline Neck exam: ABSENT: JVD Respiratory exam: PRESENT: clear to auscultation rei. ABSENT: rales, rhonchi, wheezes Cardiovascular exam: PRESENT: RRR. ABSENT: diastolic murmur, rubs, systolic murmur GI/Abdominal exam: PRESENT: other - Midline surgical wound with lorraine in place. In the middle there is an area where staple has been removed and shallow open area Extremities exam: PRESENT: other - Patient has dressings in place on bilateral legs. Neurological exam: PRESENT: alert, awake, oriented to person, oriented to place , oriented to time, oriented to situation Psychiatric exam: PRESENT: appropriate affect Skin exam: PRESENT: other - Dressings in place on bilateral legs. Results Laboratory Results: 10/21/16 06:00 10/21/16 06:00 Impressions: Chest X-Ray 10/09/16 00:00 IMPRESSION: Bibasilar consolidation. Small bilateral pleural effusions. Endotracheal tube tip overlies the mid trachea. Right IJ central venous catheter tip overlies the right atrium. Nasogastric catheter overlies the body of the stomach. Drainage catheter is present over the epigastric region. Abdomen CT 10/09/16 18:02 IMPRESSION: Intraperitoneal gas is present across the upper abdomen as well as in the gallbladder fossa. Diffuse inflammatory changes and moderately large amount of free fluid are present throughout the abdomen and pelvis. Upper GI Series 10/13/16 07:00 IMPRESSION: POSTOPERATIVE CHANGES SEEN OF THE DISTAL STOMACH AND PROXIMAL DUODENUM WITHOUT EVIDENCE OF EXTRAVASATION OR LEAK OF CONTRAST. MILD POSTOPERATIVE EDEMA IS SEEN ALONG THE PROXIMAL DUODENUM. ESOPHAGEAL DYSMOTILITY IS NOTED. Assessment & Plan - Diagnosis (1) Hypotension Qualifiers: Hypotension type: unspecified hypotension type Qualified Code(s): I95.9 - Hypotension, unspecified Is this a current diagnosis for this admission?: YesPlan: Her blood pressure has remained stable. (2) Perforated bowel Is this a current diagnosis for this admission?: YesPlan: This was secondary to a duodenal ulcer which was surgically repaired. The patient is tolerating a diet well. She has grown out enterococcus from her wound and has been started on Zyvox. (3) Duodenal ulcer Is this a current diagnosis for this admission?: YesPlan: Patient had surgery for repair of this (4) SLE (systemic lupus erythematosus) Qualifiers: Systemic lupus erythematosus type: unspecified Systemic lupus erythematosus organ involvement: unspecified Qualified Code(s): M32.9 - Systemic lupus erythematosus, unspecified Is this a current diagnosis for this admission?: YesPlan: Patient has complications with vasculitis of her legs. (5) Vasculitis Is this a current diagnosis for this admission?: YesPlan: Patient has problems with vasculitis of the lower extremities with large wounds. (6) Bilateral leg ulcer Is this a current diagnosis for this admission?: YesPlan: Secondary to vasculitis. We'll continue local wound care. (7) Anemia of chronic disease Is this a current diagnosis for this admission?: YesPlan: Hemoglobin has remained stable. (8) Essential hypertension Is this a current diagnosis for this admission?: YesPlan: Stable (9) Gastroesophageal reflux disease Qualifiers: Esophagitis presence: without esophagitis Qualified Code(s): K21.9 - Gastro-esophageal reflux disease without esophagitis Is this a current diagnosis for this admission?: YesPlan: Patient had a duodenal ulcer. (10) Crack cocaine use Is this a current diagnosis for this admission?: YesPlan: The patient tested positive for cocaine. This is contributing to some of the problems with her vasculitis of her legs. - Time Time Spent with patient: 15-24 minutes - Inpatient Certification Medical Necessity: Need Close Monitoring Due to Risk of Patient Decompensation
[2016-10-22] MEDS: LINEZOLID 600 MG TABLET PO SCH ×2 (11:55→22:08)
--- NOTE | 2016-10-22 16:57 | PDOC PROGRESS REPORT ---
Subjective Progress Note for:: 10/22/16 Subjective:: Tolerating clear liquids and insure. Physical Exam Vital Signs: Temp Pulse Resp BP Pulse Ox 97.9 F 86 16 117/63 100 10/22/16 15:35 10/22/16 15:35 10/22/16 15:35 10/22/16 15:35 10/22/16 15:35 Intake & Output 10/21/16 10/22/16 10/23/16 06:59 06:59 06:59 Intake Total 2913 1470 Output Total 300 750 Balance 2613 720 Weight 52.8 kg 52.4 kg General appearance: PRESENT: no acute distress GI/Abdominal exam: PRESENT: other - The soft; lorraine in place; packing removed from midline wound; wound probed with Q-tip which tracks several centimeters cephalad. Wound irrigated and left open. Paid additional packing after patient comes out of shower. Results Laboratory Results: 10/21/16 06:00 10/21/16 06:00 Impressions: Chest X-Ray 10/09/16 00:00 IMPRESSION: Bibasilar consolidation. Small bilateral pleural effusions. Endotracheal tube tip overlies the mid trachea. Right IJ central venous catheter tip overlies the right atrium. Nasogastric catheter overlies the body of the stomach. Drainage catheter is present over the epigastric region. Abdomen CT 10/09/16 18:02 IMPRESSION: Intraperitoneal gas is present across the upper abdomen as well as in the gallbladder fossa. Diffuse inflammatory changes and moderately large amount of free fluid are present throughout the abdomen and pelvis. Upper GI Series 10/13/16 07:00 IMPRESSION: POSTOPERATIVE CHANGES SEEN OF THE DISTAL STOMACH AND PROXIMAL DUODENUM WITHOUT EVIDENCE OF EXTRAVASATION OR LEAK OF CONTRAST. MILD POSTOPERATIVE EDEMA IS SEEN ALONG THE PROXIMAL DUODENUM. ESOPHAGEAL DYSMOTILITY IS NOTED. Assessment & Plan - Diagnosis (1) Perforated duodenal ulcer Is this a current diagnosis for this admission?: YesPlan: 1. Patient doing well today status post exploratory laparoscopy, oversewing of duodenal ulcer. She is tolerating a diet reasonably well. 2. Wound localized, superficial, with what appears to be intact fascia. I have instructed the nurses on getting the patient into the shower, and irrigating this area out and repeat packing it with a small portion iodoform packing. 3. She does not need to be on long-term antibiotics any further. Hopefully we can get patient home with home health assistance in the next 24 hours. (2) Perforated bowel Is this a current diagnosis for this admission?: Yes
[2016-10-23] MEDS: OXYCODONE-ACETAMINOPHEN 5-325 MG TABLET PO PRN ×3 (00:09→12:50)
[2016-10-23] MEDS: METRONIDAZOLE 500 MG TABLET NG SCH ×3 (00:10→11:11)
[2016-10-23] MEDS: ENOXAPARIN SODIUM INJ 40 MG/0.4 ML DISP.SYRIN SUBCUT SCH (08:08)
[2016-10-23] MEDS: LINEZOLID 600 MG TABLET PO SCH (09:11)
--- NOTE | 2016-10-23 12:54 | PDOC DISCHARGE SUMMARY ---
General - Admit/Disc Date/PCP Admission Date/Primary Care Provider: 10/09/16 22:50 Discharge Date: 10/23/16 - Discharge Diagnosis (1) Perforated duodenal ulcer Is this a current diagnosis for this admission?: Yes (2) Crack cocaine use Is this a current diagnosis for this admission?: YesSummary: Patient generally does while hospitalized without significant withdrawal issues. (3) SLE (systemic lupus erythematosus) Is this a current diagnosis for this admission?: YesSummary: Chronic. Not currently on steroids. (4) Anemia of chronic disease Is this a current diagnosis for this admission?: YesSummary: Chronic. (5) Bilateral leg ulcer Is this a current diagnosis for this admission?: YesSummary: Improving. Patient finished a course of steroids just prior to being admitted. Exact etiology of the leg ulcers is unknown: Lupus versus vasculitis versus infectious versus related to a contaminant ingested via drug use. Continue daily wound care. Recommend smoking cessation. (6) Essential hypertension Is this a current diagnosis for this admission?: YesSummary: Was hypotensive on admission related to sepsis/perforated ulcer. Has since resumed her baseline hypertensive medications. She will continue on her baseline hypertension medications upon discharge. (7) Gastroesophageal reflux disease Is this a current diagnosis for this admission?: YesSummary: PPI on discharge. (8) Sepsis Is this a current diagnosis for this admission?: YesSummary: Resolved. (9) Vasculitis Is this a current diagnosis for this admission?: YesSummary: Follow-up to be contributory in leg ulcers. Leg ulcers are improving. Finished her course of steroids. - Additional Information Resuscitation Status: Full Code Discharge Diet: Diabetic Discharge Activity: No Lifting Over 10 Pounds Home Medications: Hydrocodone/Acetaminophen [Hydrocodon-Acetaminophen 5-325] 1 tab PO Q4 09/17/16 Thiamine Mononitrate [Vitamin B-1] 100 mg PO DAILY 09/17/16 Duloxetine HCl [Cymbalta] 60 mg PO DAILY #30 capsule. 09/29/16 Folic Acid [Folvite 1 mg Tablet] 1 mg PO DAILY #30 tablet 09/29/16 Hydralazine HCl [Apresoline 50 mg Tablet] 50 mg PO Q8 #90 tablet 09/29/16 Losartan Potassium [Cozaar 50 mg Tablet] 100 mg PO DAILY #30 tablet 09/29/16 Oxycodone HCl/Acetaminophen [Percocet 10-325 mg Tablet] 1 each PO Q4HP PRN #20 tablet 09/29/16 Prednisone [Deltasone 10 mg Tablet] 10 mg PO ASDIR PRN #10 tablet 09/29/16 Oxycodone HCl/Acetaminophen [Percocet 5-325 mg Tablet] 1 tab PO Q4HP PRN #20 tablet 10/23/16 History of Present Illness History of Present Illness: TAYLOR MACKEY is a 41 year old female who was admitted to the hospital on the evening of 02/08/2016 with acute onset of abdominal pain. She was evaluated and found to have sepsis and a perforated duodenal ulcer. She was fluid resuscitated and given broad-spectrum IV antibiotics. She was taken emergently to the operating suite where an exploratory laparotomy, drainage of intra- abdominal abscess and Demar patch repair of perforated duodenal ulcer was performed, as well as central line placement. She was admitted postoperatively , continued on IV fluids and IV antibiotics, nothing by mouth, NG tube to low intermittent suction, DVT prophylaxis. She eventually had return of bowel function. Her NG tube was removed. Her diet was gradually advanced. She did have 2 lorraine removed in the upper portion of her incision with some drainage. Daily wound care was initiated. At the time of discharge on 10/23/2016, she was ambulating, had normal bowel and bladder function, was tolerating diet, and pain was well-controlled with oral medications. While in the hospital she was on the surgical service with consultation from the hospitalist. Her chronic medical conditions were managed by the hospitalist. Her chronic lower extremity wounds were cared for with daily dressing changes. She was discharged home with home health care. Hospital Course Hospital Course: TAYLOR MACKEY is a 41 year old female who was admitted to the hospital on the evening of 02/08/2016 with acute onset of abdominal pain. She was evaluated and found to have sepsis and a perforated duodenal ulcer. She was fluid resuscitated and given broad-spectrum IV antibiotics. She was taken emergently to the operating suite where an exploratory laparotomy, drainage of intra- abdominal abscess and Demar patch repair of perforated duodenal ulcer was performed, as well as central line placement. She was admitted postoperatively , continued on IV fluids and IV antibiotics, nothing by mouth, NG tube to low intermittent suction, DVT prophylaxis. She eventually had return of bowel function. Her NG tube was removed. Her diet was gradually advanced. She did have 2 lorraine removed in the upper portion of her incision with some drainage. Daily wound care was initiated. At the time of discharge on 10/23/2016, she was ambulating, had normal bowel and bladder function, was tolerating diet, and pain was well-controlled with oral medications. While in the hospital she was on the surgical service with consultation from the hospitalist. Her chronic medical conditions were managed by the hospitalist. Her chronic lower extremity wounds were cared for with daily dressing changes. She was discharged home with home health care. Physical Exam Vital Signs: Temp Pulse Resp BP Pulse Ox 97.9 F 78 18 109/73 100 10/23/16 11:53 10/23/16 11:53 10/23/16 11:53 10/23/16 11:53 10/23/16 11:53 Intake & Output 10/22/16 10/23/16 10/24/16 06:59 06:59 06:59 Intake Total 1470 1490 Output Total 750 300 Balance 720 1190 Weight 52.4 kg 52.6 kg General appearance: PRESENT: no acute distress, thin Head exam: PRESENT: normocephalic Eye exam: PRESENT: EOMI Mouth exam: PRESENT: tongue midline Teeth exam: PRESENT: poor dentation GI/Abdominal exam: PRESENT: normal bowel sounds, soft, tenderness - Appropriately tender at incision when daily wound care was performed. Wound care: We'll dressing was removed. Iodoform packing was removed. Wound was cleansed and probed with hydrogen peroxide soaked Q-tips. Wound tracks superiorly 2 or 3 cm. It does not track inferiorly. The wound was repacked with iodoform gauze and redressed with gauze and an Allevyn dressing.. ABSENT: distended Extremities exam: PRESENT: other - Gradual healing of lower extremity sores. Kerlix roll and Coban dressings in place. Musculoskeletal exam: PRESENT: ambulatory Neurological exam: PRESENT: alert, oriented to situation Psychiatric exam: PRESENT: normal mood Results Laboratory Results: 10/21/16 06:00 10/21/16 06:00 Impressions: Chest X-Ray 10/09/16 00:00 IMPRESSION: Bibasilar consolidation. Small bilateral pleural effusions. Endotracheal tube tip overlies the mid trachea. Right IJ central venous catheter tip overlies the right atrium. Nasogastric catheter overlies the body of the stomach. Drainage catheter is present over the epigastric region. Abdomen CT 10/09/16 18:02 IMPRESSION: Intraperitoneal gas is present across the upper abdomen as well as in the gallbladder fossa. Diffuse inflammatory changes and moderately large amount of free fluid are present throughout the abdomen and pelvis. Upper GI Series 10/13/16 07:00 IMPRESSION: POSTOPERATIVE CHANGES SEEN OF THE DISTAL STOMACH AND PROXIMAL DUODENUM WITHOUT EVIDENCE OF EXTRAVASATION OR LEAK OF CONTRAST. MILD POSTOPERATIVE EDEMA IS SEEN ALONG THE PROXIMAL DUODENUM. ESOPHAGEAL DYSMOTILITY IS NOTED. Plan Discharge Plan: Discharge home with home health care for extremity and abdominal wound dressing changes. Continue deep breathing and coughing. Walk frequently. No lifting greater than 10 pounds for 2 weeks. No smoking. No NSAIDs. Regular diet. Follow-up within a week of discharge with wound care clinic. Follow-up with Dr. Lee in surgery clinic in 2 weeks. Follow-up with caring clinic as directed.
[2016-10-23 13:05] VITALS: BP 113/65
== END 2016-10-23 14:10 | disposition home health service (06) | DRG 853 ==
LOC: ER 14:08 → EH 19:40 → UNDOADMIN 19:40 → EH 22:33 → ICU 22:33 → UNDOADMIN 22:50 → EH 22:50 → 3W 10-12 21:06 → ICU 10-12 21:06
PROVIDERS: ADMIT Colon & Rectal Surgery; ATTEND Colon & Rectal Surgery
PROC: 3E1M38Z Irrigation of Peritoneal Cavity using Irrigating Substance, Percutaneous Approach (ICD-10-PCS; 2016-10-09)
PROC: 02HV33Z Insertion of Infusion Device into Superior Vena Cava, Percutaneous Approach (ICD-10-PCS; 2016-10-09)
PROC: B548ZZA Ultrasonography of Superior Vena Cava, Guidance (ICD-10-PCS; 2016-10-09)
PROC: 0DU907Z Supplement Duodenum with Autologous Tissue Substitute, Open Approach (ICD-10-PCS; principal; 2016-10-09 21:30)
PROC: 30233N1 Transfusion of Nonautologous Red Blood Cells into Peripheral Vein, Percutaneous Approach (ICD-10-PCS; 2016-10-12)
DX: A41.9 Sepsis, unspecified organism (principal); K26.5 Chronic or unspecified duodenal ulcer with perforation; K65.1 Peritoneal abscess; L97.929 Non-pressure chronic ulcer of unspecified part of left lower leg with unspecified severity; L97.919 Non-pressure chronic ulcer of unspecified part of right lower leg with unspecified severity; K56.7 Ileus, unspecified; M32.9 Systemic lupus erythematosus, unspecified; I10 Essential (primary) hypertension; K21.9 Gastro-esophageal reflux disease without esophagitis; D63.8 Anemia in other chronic diseases classified elsewhere; I77.6 Arteritis, unspecified; F14.10 Cocaine abuse, uncomplicated; F17.210 Nicotine dependence, cigarettes, uncomplicated; E87.6 Hypokalemia; E86.0 Dehydration; Z88.1 Allergy status to other antibiotic agents; Z88.3 Allergy status to other anti-infective agents; Z88.2 Allergy status to sulfonamides; Z79.52 Long term (current) use of systemic steroids
CPT/HCPCS: 00790; 36415; 36430; 51701; 71010; 74150; 74247; 80048; 80053; 80301; 81001; 81025; 82962; 83690; 83735; 84100; 84132; 84134; 84478; 85025; 85027; 85610; 85652; 86850; 86900; 86901; 86920; 87070; 87075; 87077; 87186; 87205; 94002; 94003; 96361; 96374; 96375; 99285; C1751; G0479; J0330; J1170; J1642; J1650; J2250; J2270; J2370; J2405; J2543; J2704; J3010; J3475; J3480; J3490; J7030; P9016; S0028; S0164

== ENCOUNTER 2016-12-01 09:34 | Emergency (ER) | payer OTHER ==
[2016-12-01 10:18] LABS: ABSOLUTE LYMPHOCYTES (AUTO) 0.6 10^3/uL (0.5-4.7); ABSOLUTE MONOCYTES (AUTO) 0.5 10^3/uL (0.1-1.4); ABSOLUTE NEUT (AUTO) 6.1 10^3/uL (1.7-8.2); BASOPHILS % (AUTO) 0.2 % (0-2); HEMATOCRIT 33.9 % (36.0-47.0); HEMOGLOBIN 10.9 g/dL (12.0-15.5); HGB HCT DIFFERENCE -1.2; LYMPHOCYTES % (AUTO) 8.2 % (13-45); MEAN CORPUSCULAR HGB CONC 32.2 g/dL (32.0-36.0); MEAN CORPUSCULAR VOLUME 81 fl (80-97); MONOCYTES % (AUTO) 6.4 % (3-13); RED CELL DISTRIBUTION WIDTH 19.8 % (11.5-14.0); SEGMENTED NEUTROPHILS % (AUTO) 85.2 % (42-78); WHITE BLOOD COUNT 7.2 10^3/uL (4.0-10.5)
[2016-12-01] MEDS ORDERED: OXYCODONE-ACETAMINOPHEN 5-325 MG TABLET PO ONE (10:44)
--- NOTE | 2016-12-01 10:48 | ER Document Report ---
ED Extremity Problem, Lower - General Chief Complaint: Leg Pain Stated Complaint: LEG PAIN Notes: The patient is a 41-year-old female, past medical history chronic right leg wound (followed by the wound care center), presents with a foul-smelling odor from her wounds for the past 2 days. She is having mild pain, which is baseline , but denies any increased drainage or pain. She missed her wound care appointment last week. Denies fevers, numbness, tingling, injury, chest pain, shortness of breath, nausea or vomiting. TRAVEL OUTSIDE OF THE [place] IN LAST 30 DAYS: No - Related Data Allergies/Adverse Reactions: amoxicillin [From Augmentin] Allergy (Verified 10/09/16 19:42) Generalized Itching cephalexin [From Keflex] Allergy (Verified 10/09/16 19:42) clavulanic acid [From Augmentin] Allergy (Verified 10/09/16 19:42) sulfamethoxazole [From Septra] Allergy (Verified 10/09/16 19:42) trimethoprim [From Septra] Allergy (Verified 10/09/16 19:42) Past Medical History - General Information source: Patient - Social History Smoking Status: Unknown if Ever Smoked Family History: Hypertension - Past Medical History Cardiac Medical History: Reports: Hx Hypertension Renal/ Medical History: Reports: Hx End Stage Renal Disease GI Medical History: Reports: Hx Gastroesophageal Reflux Disease Musculoskeltal Medical History: Reports Hx Arthritis - lupus Past Surgical History: Reports: Hx Section - 3, Other - Previous wound debridements - Immunizations Immunizations up to date: Yes Hx Diphtheria, Pertussis, Tetanus Vaccination: Yes Review of Systems - Review of Systems Notes: REVIEW OF SYSTEMS: CONSTITUTIONAL: -fevers, -chills EENT: -eye pain, -difficulty swallowing, -nasal congestion CARDIOVASCULAR:-chest pain, -syncope. RESPIRATORY: -cough, -SOB GASTROINTESTINAL: -abdominal pain, - nausea, -vomiting, -diarrhea GENITOURINARY: -dysuria, -hematuria MUSCULOSKELETAL: -back pain, -neck pain SKIN: +chronic right leg wound HEMATOLOGIC: -easy bruising or bleeding. LYMPHATIC: -swollen, enlarged glands. NEUROLOGICAL: -altered mental status or loss of consciousness, -headache, - neurologic symptoms PSYCHIATRIC: -anxiety, -depression. ALL OTHER SYSTEMS REVIEWED AND NEGATIVE. Physical Exam - Vital signs Vitals: Resp BP Pulse Ox 15 177/116 H 100 12/01/16 09:54 12/01/16 09:54 12/01/16 09:54 - Notes Notes: PHYSICAL EXAMINATION: GENERAL: Crying. HEAD: Atraumatic, normocephalic. EYES: Pupils equal round and reactive to light, extraocular movements intact, sclera anicteric, conjunctiva are normal. ENT: nares patent, oropharynx clear without exudates. Moist mucous membranes. NECK: Normal range of motion, supple without lymphadenopathy LUNGS: Breath sounds clear to auscultation bilaterally and equal. No wheezes rales or rhonchi. HEART: Regular rate and rhythm without murmurs ABDOMEN: Soft, nontender, normoactive bowel sounds. No guarding, no rebound. No masses appreciated. EXTREMITIES: Large open wound over right anterior tibia, foul-smelling, no drainage, no surrounding erythema. Normal range of motion, no pitting or edema. No cyanosis. NEUROLOGICAL: Cranial nerves grossly intact. Normal speech, normal gait. Normal sensory, motor, and reflex exams. PSYCH: Anxious Course - Re-evaluation Re-evalutation: Patient is afebrile, normal white count, normal lactate and no increased drainage out of her wound. Called wound care center and rescheduled her appointment to this Monday 12/04 at 3:45 pm. Spoke to patient and documented this on her discharge instructions so that she will go to her appointment. Dressing changed and wound irrigated. Will provide a short course of pain medications, but no antibiotics at this time because she does not have cellulitis. She is comfortable with plan. - Vital Signs Vital signs: Temp Pulse Resp BP Pulse Ox 98.2 F 29 H 168/118 H 100 12/01/16 11:20 12/01/16 11:02 12/01/16 11:02 12/01/16 11:02 - Laboratory Result Diagrams: 12/01/16 09:59 12/01/16 11:54 Laboratory results interpreted by me: 12/01/16 12/01/16 09:59 11:54 Hgb 10.9 L Hct 33.9 L MCH 26.0 L RDW 19.8 H Seg Neutrophils % 85.2 H Lymphocytes % 8.2 L Chloride 110 H Carbon Dioxide 15 L BUN 22 H Discharge - Discharge Clinical Impression: Leg wound, right Qualifiers: Encounter type: subsequent encounter Qualified Code(s): S81.801D - Unspecified open wound, right lower leg, subsequent encounter Condition: Good Disposition: HOME, SELF-CARE Additional Instructions: An appointment was made for you for this Monday 12/04 at 3:45 PM at the [facility]. You must go! Your blood work today does not show any signs of a large infection. [facility] [address] [place] [id number] Wound Care After I&D 1. If an antibiotic is prescribed please try to take on a regular schedule as this may help resolve your infection faster. 2. Pain will usually be very well managed with [id number] medications such as Tylenol, Advil, or Aleve. If a narcotic prescription is used you cannot take this and drive or operate dangerous machinery while on this medication. 3. If bleeding occurs postoperatively apply firm pressure over the site for 10 minutes and it will usually stop. If it persists call the office and return during office hours or go to the emergency room in the evenings or weekends. 4. You may shower the next day. It is usually best to remove the outer dressing before the shower. Then gently pull out the gauze packing inside the abscess cavity. Do not moisten prior to removal. Wash any soap out of the wound daily. 5. After your shower and the packing has been removed you should gently clean the abscess cavity with 2-3 Q-tips and a solution of saline and peroxide that was sent home with you. If you did not receive this solution, you can mix peroxide and water as the peroxide will clean even tap water of any bacteria. Insert the Q-tip into the solution and then gently into the abscess cavity to keep the skin edges apart, gently swabbing using a total of 2- 3 Q-tips. This helps to keep the skin open to allow the abscess to heal from the inside out. If the skin heals too fast the abscess will reoccur as the skin closes over an open hole. Repack with damp gauze with saline and peroxide. No wet part should touch the skin edge. Cover the site with a gauze dressing and tape at first after daily wound care. When the drainage is less you may switch over to band aids if more convenient. 6. When only the skin edges are left to heal you may clean the surface with the solution on a cotton ball. 7. Schedule a follow up to monitor healing. In some cases an excision of the area may be needed in the future to decrease risk of recurrence. 8. If any problems or questions call during office hours [phone]. If at night or on the weekend you may call [facility] [phone] and ask for the surgicalist ear nose throat surgeon. Prescriptions: Hydrocodone/Acetaminophen [[place] 5-325 mg Tablet] 1 tab PO Q6H PRN #10 tablet PRN Reason: Referrals: TIAGO JOHNSON MD [ACTIVE STAFF] - Follow up as needed
[2016-12-01 12:19] LABS: ANION GAP 14 (5-19); BLOOD UREA NITROGEN 22 mg/dL (7-20); CALCIUM 9.4 mg/dL (8.4-10.2); CARBON DIOXIDE 15 mmol/L (22-30); CHLORIDE 110 mmol/L (98-107); CREATINE KINASE 30 U/L (30-135); CREATININE RESULT 0.81 mg/dL (0.52-1.25); GLUCOSE 81 mg/dL (75-110); POTASSIUM 4.5 mmol/L (3.6-5.0)
[2016-12-01] MEDS ORDERED: HYDROCODONE/ACETAMINOPHEN 5-325 MG TABLET PO ONE (13:44)
[2016-12-01 14:59] VITALS: BP 148/100
== END 2016-12-01 14:42 | disposition home or self-care (01) ==
LOC: ER 09:34
DX: S81.801D Unspecified open wound, right lower leg, subsequent encounter (principal); X58.XXXD Exposure to other specified factors, subsequent encounter; I12.0 Hypertensive chronic kidney disease with stage 5 chronic kidney disease or end stage renal disease; N18.6 End stage renal disease; Z88.0 Allergy status to penicillin; Z88.1 Allergy status to other antibiotic agents
CPT/HCPCS: 36415; 80048; 82550; 83605; 85025; 87070; 87077; 87186; 87205; 99283

== ENCOUNTER 2016-12-04 16:41 | Inpatient (IN) | payer OTHER ==
[2016-12-04] MEDS ORDERED: HYDROCODONE/ACETAMINOPHEN 5-325 MG TABLET PO ONE (17:08)
--- NOTE | 2016-12-04 17:10 | ER Document Report ---
ED Medical Screen (RME) - General Chief Complaint: Leg Pain Stated Complaint: RIGHT LEG WOUND Mode of Arrival: Ambulatory Information source: Patient Notes: 41-year-old female presents to the emergency department referred by wound care clinic for worsening of chronic right lower leg ulcer. Reports worsening pain. Denies fever. I have greeted and performed a rapid initial assessment of this patient. A comprehensive ED assessment and evaluation of the patient, analysis of test results and completion of the medical decision making process will be conducted by additional ED providers. TRAVEL OUTSIDE OF THE [place] IN LAST 30 DAYS: No - Related Data Allergies/Adverse Reactions: amoxicillin [From Augmentin] Allergy (Verified 12/04/16 17:02) Generalized Itching cephalexin [From Keflex] Allergy (Verified 12/04/16 17:02) clavulanic acid [From Augmentin] Allergy (Verified 12/04/16 17:02) sulfamethoxazole [From Septra] Allergy (Verified 12/04/16 17:02) trimethoprim [From Septra] Allergy (Verified 12/04/16 17:02) Past Medical History - Past Medical History Cardiac Medical History: Reports: Hx Hypertension Renal/ Medical History: Reports: Hx End Stage Renal Disease. Denies: Hx Peritoneal Dialysis GI Medical History: Reports: Hx Gastroesophageal Reflux Disease Musculoskeltal Medical History: Reports Hx Arthritis - lupus Past Surgical History: Reports: Hx Section - 3, Other - Previous wound debridements - Immunizations Immunizations up to date: Yes Hx Diphtheria, Pertussis, Tetanus Vaccination: Yes Physical Exam - General General appearance: Alert In distress: None - Respiratory Respiratory status: No respiratory distress
[2016-12-04] MEDS ORDERED: HYDROMORPHONE HCL INJ/PF 2 MG/ML AMPULE IV ONE ×2 (18:10→19:40)
[2016-12-04] MEDS ORDERED: ONDANSETRON HCL INJ/PF 4 MG/2 ML SDV IV ONE (18:11)
[2016-12-04] MEDS ORDERED: HYDROMORPHONE HCL INJ/PF 2 MG/ML AMPULE IM ONE (18:34)
[2016-12-04] MEDS ORDERED: ONDANSETRON 4 MG TAB.RAPDIS PO ONE (18:35)
[2016-12-04] MEDS ORDERED: VANCOMYCIN HCL INJ 1000 MG VIAL IV ONE (19:40)
[2016-12-04] MEDS ORDERED: LEVOFLOXACIN 500 MG/D5W RTU 100 ML IV ONE (19:41)
[2016-12-04 19:45] LABS: ABSOLUTE MONOCYTES (AUTO) 0.6 10^3/uL (0.1-1.4); ABSOLUTE NEUT (AUTO) 4.2 10^3/uL (1.7-8.2); BASOPHILS % (AUTO) 0.3 % (0-2); EOSINOPHILS % (AUTO) 0.1 % (0-6); HEMATOCRIT 28.1 % (36.0-47.0); HGB HCT DIFFERENCE -1.1; LYMPHOCYTES % (AUTO) 17.6 % (13-45); MEAN CORPUSCULAR HEMOGLOBIN 25.9 pg (27.0-33.4); MEAN CORPUSCULAR HGB CONC 31.9 g/dL (32.0-36.0); MEAN CORPUSCULAR VOLUME 81 fl (80-97); RED BLOOD COUNT 3.47 10^6/uL (3.72-5.28); RED CELL DISTRIBUTION WIDTH 18.3 % (11.5-14.0); WHITE BLOOD COUNT 5.9 10^3/uL (4.0-10.5)
[2016-12-04 19:58] LABS: ALANINE AMINOTRANSFERASE 17 U/L (9-52); ALBUMIN 2.9 g/dL (3.5-5.0); ALKALINE PHOSPHATASE 61 U/L (38-126); ANION GAP 12 (5-19); ASPARTATE AMINO TRANSFERASE 13 U/L (14-36); BILIRUBIN,TOTAL 0.4 mg/dL (0.2-1.3); BLOOD UREA NITROGEN 22 mg/dL (7-20); CARBON DIOXIDE 18 mmol/L (22-30); CHLORIDE 109 mmol/L (98-107); CREATININE RESULT 0.95 mg/dL (0.52-1.25); GLUCOSE 91 mg/dL (75-110); POTASSIUM 3.3 mmol/L (3.6-5.0); SODIUM 139.3 mmol/L (137-145); TOTAL PROTEIN 7.6 g/dL (6.3-8.2)
--- NOTE | 2016-12-04 20:12 | ER Document Report ---
ED General - General Chief Complaint: Leg Pain Stated Complaint: RIGHT LEG WOUND Time seen by provider: 20:07 Mode of Arrival: Ambulatory Information source: Patient Notes: This is a 41-year-old female with a history of lupus and substance abuse who has been followed by the wound clinic because of chronic right lower extremity wound. Patient was seen in the wound clinic today and referred to the emergency room for worsening discharge, smell and pain from the wound. Patient does state she's been having fevers. TRAVEL OUTSIDE OF THE [place] IN LAST 30 DAYS: No - HPI Onset: Last week Onset/Duration: Gradual Quality of pain: Dull Severity: Moderate Pain Level: 4 Associated symptoms: Chills, Fever, Other - Discharge from the wound Exacerbated by: Movement, Walking Relieved by: Denies Similar symptoms previously: Yes Recently seen / treated by doctor: Yes - Related Data Allergies/Adverse Reactions: amoxicillin [From Augmentin] Allergy (Verified 12/04/16 17:02) Generalized Itching cephalexin [From Keflex] Allergy (Verified 12/04/16 17:02) clavulanic acid [From Augmentin] Allergy (Verified 12/04/16 17:02) sulfamethoxazole [From Septra] Allergy (Verified 12/04/16 17:02) trimethoprim [From Septra] Allergy (Verified 12/04/16 17:02) Past Medical History - General Information source: Patient - Social History Smoking Status: Unknown if Ever Smoked Cigarette use (# per day): No Chew tobacco use (# tins/day): No Smoking Education Provided: No Frequency of alcohol use: Occasional Drug Abuse: Cocaine Lives with: Homeless Family History: Hypertension Patient has suicidal ideation: No Patient has homicidal ideation: No - Past Medical History Cardiac Medical History: Reports: Hx Hypertension Pulmonary Medical History: Reports: None Renal/ Medical History: Reports: Other - Chronic kidney disease. Denies: Hx Peritoneal Dialysis GI Medical History: Reports: Hx Gastroesophageal Reflux Disease Musculoskeltal Medical History: Reports Hx Arthritis - lupus Past Surgical History: Reports: Hx Section - 3, Other - Previous wound debridements - Immunizations Immunizations up to date: Yes Hx Diphtheria, Pertussis, Tetanus Vaccination: Yes Review of Systems - Review of Systems Constitutional: Chills, Fever EENT: No symptoms reported Cardiovascular: No symptoms reported Respiratory: No symptoms reported Gastrointestinal: No symptoms reported Genitourinary: No symptoms reported Female Genitourinary: No symptoms reported Musculoskeletal: See HPI Skin: No symptoms reported Hematologic/Lymphatic: No symptoms reported Neurological/Psychological: No symptoms reported Physical Exam - Vital signs Vitals: Temp Pulse Resp BP Pulse Ox 98.1 F 112 H 16 126/81 H 100 12/04/16 17:08 12/04/16 17:08 12/04/16 17:08 12/04/16 17:08 12/04/16 17:08 Notes: Physical exam: GENERAL: 41-year-old female, alert and oriented 3, writhing in pain. The patient looks like she is in significant amount of distress. HEAD: Atraumatic, normocephalic. EYES: Pupils equal round and reactive to light, extraocular movements intact, sclera anicteric, conjunctiva are normal. ENT: TMs normal, nares patent, oropharynx clear without exudates. Moist mucous membranes. NECK: Normal range of motion, supple without lymphadenopathy or JVD. LUNGS: Breath sounds clear to auscultation bilaterally and equal. No wheezes rales or rhonchi. HEART: Regular rate and rhythm without murmurs, rubs or gallops. ABDOMEN: Soft, normoactive bowel sounds. No tenderness to palpation. No guarding, no rebound. No masses appreciated. EXTREMITIES: Right lower extremity has a significant necrotic ulcerated wound below the knee with tibia showing. There is a lot of drainage on the dressings. There is a strong anaerobic smell. Distally, the foot does have good cap refill and is warm. NEUROLOGICAL: Cranial nerves II through XII grossly intact. Normal speech, moving all extremities. Gait not assessed because of significant right lower extremity wound. PSYCH: Normal mood, normal affect. SKIN: Large ulcerated of wound with drainage to the right lower extremity. Course - Re-evaluation Re-evalutation: 12/04/16 20:22 Note: The dressings were removed and or significantly soaked with pussy discharge. The wound is extensive and has areas of necrotic material on it. This is an advanced ulcerated wound with bone showing. I discussed case with Dr. Meza who saw the patient at the bedside. He does know the patient well. The patient has very poor access, I placed a right internal jugular central line for blood work, pain medicine and antibiotics. The line was placed under strict sterile field conditions. I discussed case with Dr. Kaye who is willing to meet the patient. - Vital Signs Vital signs: Temp Pulse Resp BP Pulse Ox 98.1 F 112 H 16 126/81 H 100 12/04/16 17:08 12/04/16 17:08 12/04/16 17:08 12/04/16 17:08 12/04/16 17:08 - Laboratory Result Diagrams: 12/04/16 19:21 12/04/16 19:21 Laboratory results interpreted by me: 12/04/16 12/04/16 19:21 19:21 RBC 3.47 L Hgb 9.0 L Hct 28.1 L MCH 25.9 L MCHC 31.9 L RDW 18.3 H Potassium 3.3 L Chloride 109 H Carbon Dioxide 18 L BUN 22 H AST 13 L Albumin 2.9 L Procedures - Central Line Right Internal jugular Time completed: 19:30 Consent obtained: Yes - verbal consent obtained Central line pre-insertion: Chloraprep applied, Sterile drapes applied Central line size (Fr.): 18 Central line lumen type: Triple Anesthetic type: 1% Lidocaine mL's of anesthesia: 5 Ultrasound guided: Yes CM at insertion site: 16 Line secured with sutures: Yes Central line post-insertion: Biopatch applied, Sutured, Sterile dressing applied , Position confirmed w/ CXR, Other - I was not able to get blood return from the blue lumen. The other 2 lm gave good blood flow. Complications: No Notes: 12/04/16 20:11 Ultrasound-guided. MSBT (maximum sterile barrier technique) followed including cap, mask, sterile gloves, large sterile sheet, hand hygiene, sterile ultrasound probe sleeve, sterile saline for probe visualization, liberal ChloraPrep for cutaneous antisepsis both during procedure set up and immediately before Biopatch application, line stabilization with suture and sterile Tegaderm placement. Note: There was a small suture still in place in the right neck from a previous central line. This was removed after the neck was prepped. The neck was reprepped after removal of this small suture material. 12/04/16 20:24 Critical Care Note - Critical Care Note Total time excluding time spent on procedures (mins): 60 Discharge - Discharge Clinical Impression: infected wound right lower extremity Condition: Serious Disposition: ADMITTED INPATIENT Admitting Provider: Hospitalist - Dr. Kaye Unit Admitted: Medical Floor
[2016-12-04] MEDS ORDERED: (PENDING PHARMACY ID) (Oxycodone Hcl/Acetaminophen [Percocet 10-325 Mg Tablet] 1 EACH) PO PRN (20:18)
[2016-12-04 20:57] LABS: MAGNESIUM 1.7 mg/dL (1.6-2.3)
[2016-12-04] MEDS ORDERED: ASCORBIC ACID 500 MG TABLET PO ONE (21:00)
[2016-12-04] MEDS ORDERED: CHOLECALCIFEROL (D3) 1,000 UNIT TABLET PO ONE (22:00)
[2016-12-04] MEDS ORDERED: IRON POLYSACCHARIDES COMPLEX 150 MG CAPSULE PO ONE (22:00)
[2016-12-04] MEDS ORDERED: HEPARIN SOD (PORCINE) 5,000 UNIT/ML 1 ML SYRINGE SUBCUT SCH (22:00)
[2016-12-04] MEDS ORDERED: POTASSI CL 20 MEQ/50 ML RIDER 20 MEQ/50 ML RTUPB IV SCH (22:00)
[2016-12-04] MEDS: HYDRALAZINE HCL 50 MG TABLET PO SCH (22:55)
[2016-12-04] MEDS: OXYCODONE HCL IR 5 MG TABLET PO PRN (22:58)
[2016-12-05] MEDS: OXYCODONE-ACETAMINOPHEN 5-325 MG TABLET PO PRN ×2 (01:17→15:02)
[2016-12-05] MEDS: KETOROLAC TROMETHAMINE INJ/PF 30 MG/1 ML SDV IV PRN ×3 (01:18→23:21)
[2016-12-05] MEDS: HEPARIN SOD (PORCINE) 5,000 UNIT/ML 1 ML SYRINGE SUBCUT SCH ×4 (01:21→23:01)
[2016-12-05 03:01] LABS: APPEARANCE,URINE SLIGHTLY-CLOUDY; BILIRUBIN,URINE NEGATIVE (NEGATIVE); GLUCOSE, URINE NEGATIVE (NEGATIVE); KETONES,URINE NEGATIVE (NEGATIVE); LEUKOCYTE ESTERASE,URINE TRACE (NEGATIVE); NITRITE,URINE NEGATIVE (NEGATIVE); PROTEIN,URINE 100 mg/dL (NEGATIVE); URINE SPECIFIC GRAVITY 1.021; UROBILINOGEN,URINE NEGATIVE mg/dL (<2.0)
[2016-12-05] MEDS ORDERED: INFLUENZA ADLT QUAD (36MOS+) 2016-17 VAC 0.5 ML SYR IM PRN (03:12)
[2016-12-05 03:16] LABS: URINE BARBITURATES SCREEN NEGATIVE; URINE METHADONE SCREEN NEGATIVE; URINE PHENCYCLIDINE SCREEN NEGATIVE
[2016-12-05 03:19] LABS: URINE OPIATES LOW UNCONFIRMED POSITIVE
[2016-12-05] MEDS: NORMAL SALINE 1000 ML 1,000 ML IV SCH ×2 (03:37→09:37)
[2016-12-05] MEDS ORDERED: POTASSI CL 20 MEQ/50 ML RIDER 20 MEQ/50 ML RTUPB IV SCH (04:30)
[2016-12-05 04:51] LABS: ABSOLUTE LYMPHOCYTES (AUTO) 0.7 10^3/uL (0.5-4.7); ABSOLUTE MONOCYTES (AUTO) 0.4 10^3/uL (0.1-1.4); ABSOLUTE NEUT (AUTO) 3.9 10^3/uL (1.7-8.2); BASOPHILS % (AUTO) 0.8 % (0-2); EOSINOPHILS % (AUTO) 0.7 % (0-6); HEMATOCRIT 27.5 % (36.0-47.0); HEMOGLOBIN 8.9 g/dL (12.0-15.5); HGB HCT DIFFERENCE -0.8; LYMPHOCYTES % (AUTO) 13.4 % (13-45); MEAN CORPUSCULAR HEMOGLOBIN 26.1 pg (27.0-33.4); MEAN CORPUSCULAR HGB CONC 32.4 g/dL (32.0-36.0); MEAN CORPUSCULAR VOLUME 81 fl (80-97); MONOCYTES % (AUTO) 8.9 % (3-13); RED BLOOD COUNT 3.41 10^6/uL (3.72-5.28); RED CELL DISTRIBUTION WIDTH 18.5 % (11.5-14.0); SEGMENTED NEUTROPHILS % (AUTO) 76.2 % (42-78); WHITE BLOOD COUNT 5.1 10^3/uL (4.0-10.5)
[2016-12-05 04:56] LABS: ANION GAP 11 (5-19); BLOOD UREA NITROGEN 19 mg/dL (7-20); CALCIUM 8.6 mg/dL (8.4-10.2); CARBON DIOXIDE 19 mmol/L (22-30); CHLORIDE 110 mmol/L (98-107); CREATININE RESULT 0.84 mg/dL (0.52-1.25); GLUCOSE 115 mg/dL (75-110); POTASSIUM 3.6 mmol/L (3.6-5.0); SODIUM 139.8 mmol/L (137-145)
--- NOTE | 2016-12-05 05:01 | PDOC H&P ---
History of Present Illness Admission Date/PCP: 12/04/16 20:20 Patient complains of: Right leg ulcer History of Present Illness: TAYLOR MACKEY is a 41 year old female with a past medical history of hypertension , lupus, vasculitis, polysubstance abuse, tobacco and chronic nonhealing right leg ulcer who is a patient of the wound care clinic and seen earlier in the day and referred to the emergency room for admission. Patient has had marketed pain with malodorous purulent drainage from her chronic leg ulcer worsening of the last 2 weeks with intermittent compliance. In the emergency room this ulcers found to have masses of necrotic material and exposed bone, empiric antibiotics initiated and referred to the hospitalist for admission. She admits intermittent fever no chest pain shortness of breath nausea vomiting.. Past Medical History Cardiac Medical History: Reports: Hypertension Pulmonary Medical History: Reports: None Renal/ Medical History: Reports: Other - Chronic kidney disease GI Medical History: Reports: Gastroesophageal Reflux Disease Musculoskeltal Medical History: Reports: Arthritis - lupus Psychiatric Medical History: Reports: Substance Abuse, Tobacco Dependency Hematology: Reports: Anemia Past Surgical History Past Surgical History: Reports: Section - 3, Other - Previous wound debridements Social History Information Source: Patient Lives with: Homeless Smoking Status: Current Every Day Smoker Cigarettes Packs Per Day: 0.5 Last Time Smoked: 12/04/2015 Frequency of Alcohol Use: Heavy Hx Recreational Drug Use: Yes Drugs: Cocaine Hx Prescription Drug Abuse: No - patient denies - Advance Directive Resuscitation Status: Full Code Family History Family History: COPD, Hypertension Parental Family History Reviewed: Yes Children Family History Reviewed: Yes Sibling(s) Family History Reviewed.: Yes Medication/Allergy Home Medications: Duloxetine HCl [Cymbalta] 60 mg PO DAILY #30 capsule. 09/29/16 Folic Acid [Folvite 1 mg Tablet] 1 mg PO DAILY #30 tablet 09/29/16 Hydralazine HCl [Apresoline 50 mg Tablet] 50 mg PO Q8 #90 tablet 09/29/16 Losartan Potassium [Cozaar 50 mg Tablet] 100 mg PO DAILY #30 tablet 09/29/16 Allergies/Adverse Reactions: amoxicillin [From Augmentin] Allergy (Verified 12/04/16 17:02) Generalized Itching cephalexin [From Keflex] Allergy (Verified 12/04/16 17:02) clavulanic acid [From Augmentin] Allergy (Verified 12/04/16 17:02) sulfamethoxazole [From Septra] Allergy (Verified 12/04/16 17:02) trimethoprim [From Septra] Allergy (Verified 12/04/16 17:02) Review of Systems Constitutional: PRESENT: anorexia, fatigue, fever(s) Eyes: ABSENT: visual disturbances Ears: ABSENT: hearing changes Cardiovascular: ABSENT: chest pain, dyspnea on exertion, edema, orthropnea, palpitations Respiratory: ABSENT: cough, hemoptysis Gastrointestinal: ABSENT: abdominal pain, constipation, diarrhea, hematemesis, hematochezia, nausea, vomiting Musculoskeletal: PRESENT: as per HPI, muscle weakness. ABSENT: back pain, deformity, joint swelling Integumentary: PRESENT: erythema, lesions, pruritus, rash, wounds. ABSENT: diaphoresis Neurological: ABSENT: abnormal gait, abnormal speech, confusion, dizziness, focal weakness, syncope Psychiatric: PRESENT: anxiety Endocrine: ABSENT: cold intolerance, heat intolerance, polydipsia, polyuria Hematologic/Lymphatic: ABSENT: easy bleeding, easy bruising Physical Exam Vital Signs: Temp Pulse Resp BP Pulse Ox 98.0 F 87 20 125/77 100 12/04/16 23:47 12/04/16 23:47 12/04/16 23:47 12/04/16 23:47 12/04/16 23:47 Intake & Output 12/03/16 12/04/16 12/05/16 11:59 11:59 11:59 Weight 48.3 kg General appearance: PRESENT: cooperative, disheveled, mild distress, thin Head exam: PRESENT: atraumatic, normocephalic Eye exam: PRESENT: conjunctiva pink, EOMI, PERRLA. ABSENT: scleral icterus Ear exam: PRESENT: normal external ear exam Mouth exam: PRESENT: moist, tongue midline Neck exam: ABSENT: carotid bruit, JVD, lymphadenopathy, thyromegaly Respiratory exam: PRESENT: clear to auscultation rei. ABSENT: rales, rhonchi, wheezes Cardiovascular exam: PRESENT: RRR. ABSENT: diastolic murmur, rubs, systolic murmur Vascular exam: PRESENT: normal capillary refill GI/Abdominal exam: PRESENT: normal bowel sounds, soft. ABSENT: distended, guarding, mass, organolmegaly, rebound, tenderness Rectal exam: PRESENT: deferred Extremities exam: PRESENT: full ROM, tenderness, other - Right leg with large necrotic ulcer with bone exposure Neurological exam: PRESENT: alert, awake, oriented to person, oriented to place , oriented to time, oriented to situation, CN II-XII grossly intact. ABSENT: motor sensory deficit Psychiatric exam: PRESENT: anxious, appropriate affect, normal mood. ABSENT: homicidal ideation, suicidal ideation Skin exam: PRESENT: dry, intact, mottled, warm. ABSENT: cyanosis, rash Results Laboratory Results: 12/05/16 02:25 Urine Color YELLOW Urine Appearance SLIGHTLY-CLOUDY Urine pH 5.0 Ur Specific [place] 1.021 Urine Protein 100 H Urine Glucose (UA) NEGATIVE Urine Ketones NEGATIVE Urine Blood NEGATIVE Urine Nitrite NEGATIVE Ur Leukocyte Esterase TRACE H Urine WBC (Auto) 27 Urine RBC (Auto) 2 Impressions: Chest X-Ray 12/04/16 00:00 IMPRESSION: SATISFACTORY PLACEMENT RIGHT IJ VENOUS CATHETER WITHOUT COMPLICATION. OTHERWISE UNREMARKABLE CHEST RADIOGRAPH. Assessment & Plan - Diagnosis (1) Leg wound, right Qualifiers: Encounter type: subsequent encounter Qualified Code(s): S81.801D - Unspecified open wound, right lower leg, subsequent encounter Is this a current diagnosis for this admission?: YesPlan: Empiric antibiotics and wound culture follow-up CBC and surgical consultation (2) Osteomyelitis of right leg Is this a current diagnosis for this admission?: YesPlan: Obtain culture consider bone biopsy per surgery, empiric antibiotics. Follow- up cultures (3) Anemia of chronic disease Is this a current diagnosis for this admission?: YesPlan: Correction of the underlying cause, anemia workup empiric iron (4) Crack cocaine use Is this a current diagnosis for this admission?: YesPlan: . Benzodiazepine when necessary (5) Hypokalemia Is this a current diagnosis for this admission?: YesPlan: Check magnesium level replete and recheck chemistry - Time Time Spent: 30 to 50 Minutes
[2016-12-05] MEDS: HYDRALAZINE HCL 50 MG TABLET PO SCH ×3 (06:56→23:01)
[2016-12-05] MEDS: OXYCODONE HCL IR 5 MG TABLET PO PRN ×2 (07:36→23:20)
[2016-12-05] MEDS ORDERED: DIPHENHYDRAMINE HCL 50 MG/ML VIAL IV PRN ×2 (09:06→16:47)
[2016-12-05] MEDS: MAGNESIUM HYDROXIDE SUSP 30 ML UDCUP PO SCH (09:36)
[2016-12-05] MEDS: DOCUSATE SODIUM 100 MG CAPSULE PO SCH ×2 (09:36→18:26)
[2016-12-05] MEDS: IRON POLYSACCHARIDES COMPLEX 150 MG CAPSULE PO SCH (09:36)
[2016-12-05] MEDS: THIAMINE HCL 100 MG TABLET PO SCH (09:36)
[2016-12-05] MEDS: ASCORBIC ACID 500 MG TABLET PO SCH ×2 (09:36→18:29)
[2016-12-05] MEDS: DULOXETINE HCL 30 MG CAPSULE.DR PO SCH (09:37)
[2016-12-05] MEDS: FOLIC ACID 1 MG TABLET PO SCH (09:37)
[2016-12-05] MEDS: LOSARTAN POTASSIUM 50 MG TABLET PO SCH (09:37)
[2016-12-05] MEDS: CHOLECALCIFEROL (D3) 1,000 UNIT TABLET PO SCH (09:37)
[2016-12-05] MEDS: NORMAL SALINE 1000 ML 1,000 ML IV PRN (13:58)
--- NOTE | 2016-12-05 15:18 | PDOC PROGRESS REPORT ---
Subjective Progress Note for:: 12/05/16 Subjective:: Patient is seen on morning rounds, she is resting comfortably in bed at the present time. She denies any fever or chills overnight. She denies any shortness breath, cough, or chest discomfort. She denies any nausea, vomiting, or diarrhea. She does complain of pain in the right lower extremity. She is known to our service from previous admission for same problem. She apparently has been noncompliant with follow-up treatment in the wound care center. She also has history of cocaine abuse and other illicit substances. She states she has not been using drugs however her urine drug screen which is positive for cocaine. Physical Exam Vital Signs: Temp Pulse Resp BP Pulse Ox 98.4 F 84 15 115/67 100 12/05/16 12:00 12/05/16 12:00 12/05/16 12:00 12/05/16 12:00 12/05/16 12:00 Intake & Output 12/04/16 12/05/16 12/06/16 06:59 06:59 06:59 Intake Total 1223 400 Balance 1223 400 Weight 48.3 kg General appearance: PRESENT: no acute distress, thin, well-developed Head exam: PRESENT: atraumatic, normocephalic Eye exam: PRESENT: conjunctiva pink, EOMI, PERRLA. ABSENT: scleral icterus Ear exam: PRESENT: normal external ear exam Mouth exam: PRESENT: moist, tongue midline Neck exam: ABSENT: carotid bruit, JVD, lymphadenopathy, thyromegaly Respiratory exam: PRESENT: accessory muscle use Cardiovascular exam: PRESENT: RRR. ABSENT: diastolic murmur, rubs, systolic murmur Vascular exam: PRESENT: normal capillary refill GI/Abdominal exam: PRESENT: normal bowel sounds, soft. ABSENT: distended, guarding, mass, organolmegaly, rebound, tenderness Rectal exam: PRESENT: deferred Extremities exam: PRESENT: calf tenderness, tenderness, other - right lower leg wrapped in cling gauze, leg is foul smelling Musculoskeletal exam: PRESENT: tenderness Neurological exam: PRESENT: alert, awake, oriented to person, oriented to place , oriented to time, oriented to situation, CN II-XII grossly intact. ABSENT: motor sensory deficit Psychiatric exam: PRESENT: flat affect Skin exam: PRESENT: other - right lower extremity wrapped at the present time, foul smelling with small amount of sanguinous drainage Results Laboratory Results: 12/05/16 04:11 12/05/16 04:11 12/05/16 12/05/16 12/05/16 02:25 04:11 04:11 WBC 5.1 RBC 3.41 L Hgb 8.9 L Hct 27.5 L MCV 81 MCH 26.1 L MCHC 32.4 RDW 18.5 H Plt Count 182 Seg Neutrophils % 76.2 Lymphocytes % 13.4 Monocytes % 8.9 Eosinophils % 0.7 Basophils % 0.8 Absolute Neutrophils 3.9 Absolute Lymphocytes 0.7 Absolute Monocytes 0.4 Absolute Eosinophils 0.0 Absolute Basophils 0.0 Sodium 139.8 Potassium 3.6 Chloride 110 H Carbon Dioxide 19 L Anion Gap 11 BUN 19 Creatinine 0.84 Est GFR ( Amer) > 60 Est GFR (Non-Af Amer) > 60 Glucose 115 H Calcium 8.6 Urine Color YELLOW Urine Appearance SLIGHTLY-CLOUDY Urine pH 5.0 Ur Specific [place] 1.021 Urine Protein 100 H Urine Glucose (UA) NEGATIVE Urine Ketones NEGATIVE Urine Blood NEGATIVE Urine Nitrite NEGATIVE Ur Leukocyte Esterase TRACE H Urine WBC (Auto) 27 Urine RBC (Auto) 2 Impressions: Chest X-Ray 12/04/16 00:00 IMPRESSION: SATISFACTORY PLACEMENT RIGHT IJ VENOUS CATHETER WITHOUT COMPLICATION. OTHERWISE UNREMARKABLE CHEST RADIOGRAPH. Assessment & Plan - Diagnosis (1) Bilateral leg ulcer Is this a current diagnosis for this admission?: YesPlan: Surgery is consulted she will need at least debridement of necrotic lower extremity wounds. As discussed with her at prior admission she is in jeopardy of losing his leg (2) Crack cocaine use Is this a current diagnosis for this admission?: YesPlan: Counseled (3) Protein-calorie malnutrition, moderate Is this a current diagnosis for this admission?: YesPlan: Risk for poor healing. Regular diet with protein supplements (4) Anemia of chronic disease Is this a current diagnosis for this admission?: YesPlan: Continue to monitor (5) Essential hypertension Is this a current diagnosis for this admission?: YesPlan: Continue current medications - Time Time Spent with patient: 25-34 minutes Critical Time spent with patient: 15-24 minutes Smoking Cessation Education: 3 to 10 minutes Medications reviewed and adjusted accordingly: Yes
[2016-12-05] MEDS ORDERED: PROPOFOL INJ 200 MG/20 ML VIAL IV ONE (15:24)
[2016-12-05] MEDS ORDERED: MIDAZOLAM 2 MG/2 ML INJ ONE (15:24)
[2016-12-05] MEDS ORDERED: FENTANYL CITRATE INJ/PF 100 MCG/2 ML AMPUL ONE (15:24)
[2016-12-05] MEDS ORDERED: MORPHINE SULFATE 10 MG/ML INJ ONE (15:25)
[2016-12-05] MEDS ORDERED: LIDOCAINE 1% INJ-PF (10 MG/ML) 30 ML SDV ONE (15:36)
[2016-12-05] MEDS ORDERED: BUPIVACAINE HCL 0.25% /EPINEPHRINE INJ/PF 30 ML SDV ONE (15:37)
[2016-12-05] MEDS ORDERED: PROMETHAZINE HCL INJ 25 MG/1 ML VIAL IV PRN ×2 (16:47)
[2016-12-05] MEDS ORDERED: FENTANYL CITRATE INJ/PF 100 MCG/2 ML AMPUL IV PRN ×3 (16:47)
[2016-12-05] MEDS ORDERED: OXYCODONE-ACETAMINOPHEN 5-325 MG TABLET PO PRN ×2 (16:47)
[2016-12-05] MEDS ORDERED: MEPERIDINE HCL/PF INJ 25 MG/1 ML DISP.SYRIN IV PRN (16:47)
[2016-12-05] MEDS ORDERED: MORPHINE SULFATE 10 MG/ML INJ IV PRN (16:47)
--- NOTE | 2016-12-05 17:08 | Operative Report ---
Operative Report DATE OF SURGERY: 12/05/16 PREOPERATIVE DIAGNOSIS: Chronic right lower leg wound POSTOPERATIVE DIAGNOSIS: Chronic right lower leg wound OPERATION: Debridement of chronic right lower leg wound SURGEON: JOLIE MURILLO ANESTHESIA: Local TISSUE REMOVED OR ALTERED: Necrotic subcutaneous tissue and tendon. Small amount sent for culture, the rest was discarded. COMPLICATIONS: None noted ESTIMATED BLOOD LOSS: 10 mL. INTRAOPERATIVE FINDINGS: Chronic right lower leg wound PROCEDURE: The patient was brought to the operative suite and placed supine on the OR table. Timeout was performed. Antibiotics had been administered as per the inpatient regimen on admission, but were currently being held pending culture results. The padding and positioning was checked and appropriate. The patient was maintained on a monitored anesthesia care throughout the procedure. The right leg was prepped and draped in the normal sterile fashion. While prepping , some of the necrotic material was debrided manually. The wound measured 18 cm in a longitudinal direction and 15 cm in a transverse direction. The wound wrapped around the leg in a transverse fashion encompassing all but 7 cm of the posterior calf. Necrotic tissue was debrided sharply with a 10 blade scalpel. Subcutaneous tissue and exposed necrotic tendon was debrided. Necrotic tendon was debrided anteriorly as well as laterally. There was some heaped up granulation tissue at the superior aspect of the wound which was reduced with cautery. With the wound bed debrided back down to viable granulation tissue and viable tendon, attention was turned to hemostasis. Bleeding points were controlled with electrocautery. The wound was injected with local anesthetic. The wound was dressed with gauze 4 x 4's, 2 Kerlix rolls and an Tanner wrap. Patient tolerated the procedure well. All lap needle and sponge counts were correct. The patient was taken to recovery in stable fashion.
--- NOTE | 2016-12-05 18:38 | EKG REPORT ---
SEVERITY:- OTHERWISE NORMAL ECG - SINUS RHYTHM BORDERLINE LEFT AXIS DEVIATION : Confirmed by: Ruy Carranza 05-Dec-2016 18:36:45
[2016-12-06] MEDS: NORMAL SALINE 1000 ML 1,000 ML IV PRN (02:12)
[2016-12-06] MEDS: HYDRALAZINE HCL 50 MG TABLET PO SCH ×3 (05:56→22:50)
[2016-12-06] MEDS: OXYCODONE-ACETAMINOPHEN 5-325 MG TABLET PO PRN ×4 (05:59→16:50)
[2016-12-06] MEDS: HEPARIN SOD (PORCINE) 5,000 UNIT/ML 1 ML SYRINGE SUBCUT SCH ×3 (05:59→22:50)
[2016-12-06 06:58] LABS: ANION GAP 8 (5-19); BLOOD UREA NITROGEN 14 mg/dL (7-20); CALCIUM 8.7 mg/dL (8.4-10.2); CARBON DIOXIDE 19 mmol/L (22-30); CHLORIDE 110 mmol/L (98-107); CREATININE RESULT 0.59 mg/dL (0.52-1.25); GLUCOSE 116 mg/dL (75-110); POTASSIUM 4.4 mmol/L (3.6-5.0); SODIUM 136.5 mmol/L (137-145)
[2016-12-06 06:59] LABS: HGB HCT DIFFERENCE -0.6; MEAN CORPUSCULAR HEMOGLOBIN 26.6 pg (27.0-33.4); MEAN CORPUSCULAR HGB CONC 32.3 g/dL (32.0-36.0); MEAN CORPUSCULAR VOLUME 82 fl (80-97); RED BLOOD COUNT 2.92 10^6/uL (3.72-5.28); RED CELL DISTRIBUTION WIDTH 18.3 % (11.5-14.0); WHITE BLOOD COUNT 4.2 10^3/uL (4.0-10.5)
[2016-12-06 07:27] LABS: BAND NEUTROPHILS % (MANUAL) 2 % (3-5); BASOPHILS % (MANUAL) 0 % (0-2); EOSINOPHILS % (MANUAL) 0 % (0-6); LYMPHOCYTES % (MANUAL) 14 % (13-45); TOTAL CELLS COUNTED 100
[2016-12-06 07:28] LABS: HYPOCHROMASIA 1+
[2016-12-06 07:29] LABS: ANISOCYTOSIS 1+; OVALOCYTES SLIGHT; POIKILOCYTOSIS SLIGHT; TARGET CELLS SLIGHT
[2016-12-06 07:31] LABS: HEMOGLOBIN 7.8 g/dL (12.0-15.5)
[2016-12-06] MEDS: KETOROLAC TROMETHAMINE INJ/PF 30 MG/1 ML SDV IV PRN ×2 (08:47→20:08)
[2016-12-06] MEDS: LOSARTAN POTASSIUM 50 MG TABLET PO SCH (10:30)
[2016-12-06] MEDS: THIAMINE HCL 100 MG TABLET PO SCH (10:40)
[2016-12-06] MEDS: MAGNESIUM HYDROXIDE SUSP 30 ML UDCUP PO SCH (10:40)
[2016-12-06] MEDS: IRON POLYSACCHARIDES COMPLEX 150 MG CAPSULE PO SCH (10:40)
[2016-12-06] MEDS: DULOXETINE HCL 30 MG CAPSULE.DR PO SCH (10:40)
[2016-12-06] MEDS: CHOLECALCIFEROL (D3) 1,000 UNIT TABLET PO SCH (10:41)
[2016-12-06] MEDS: FOLIC ACID 1 MG TABLET PO SCH (10:41)
[2016-12-06] MEDS: ASCORBIC ACID 500 MG TABLET PO SCH ×2 (10:41→19:13)
[2016-12-06] MEDS: DOCUSATE SODIUM 100 MG CAPSULE PO SCH ×2 (10:41→19:14)
--- NOTE | 2016-12-06 11:01 | PDOC CONSULTATION ---
Consultation Consult Date: 12/05/16 Consult reason:: Chronic right lower extremity wound History of Present Illness Admission Date/PCP: 12/04/16 20:20 History of Present Illness: Shey Purcell is a 41-year-old -Portuguese female, well known to the surgery service from chronic skin wounds. The true etiology of her wound is unknown. One possibility is a reaction to a contaminant in her crack cocaine, of which she is a regular user. 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 Another possibility is some relation to her systemic lupus erythematous which is untreated. Although she had multiple diffuse lesions on previous visits, this time she reports that all of her other lesions have resolved with the exception of her chronic right lower extremity wound. She reports the pain became worse in the right lower extremity on last Wednesday. On Wednesday she went to see Dr. Peralta in the wound care clinic who directed her to the emergency department for admission. Multiple debridements of this wound and done previously. She thinks the right lower extremity wound is slightly more swollen than normal, and certainly more tender than normal. Otherwise, she denies any other symptoms. Review of systems is otherwise negative. Past Medical History Cardiac Medical History: Reports: Hypertension Renal/ Medical History: Reports: Chronic Kidney Disease, Other GI Medical History: Reports: Gastroesophageal Reflux Disease Musculoskeltal Medical History: Reports: Other - Systemic lupus erythematous Psychiatric Medical History: Reports: Alcohol Dependency, Substance Abuse, Tobacco Dependency Past Surgical History Past Surgical History: Reports: Section - 3, Other - Previous wound debridements Social History Information Source: Patient Lives with: Homeless Smoking Status: Current Every Day Smoker Cigarettes Packs Per Day: 0.5 Last Time Smoked: 12/04/2015 Frequency of Alcohol Use: Heavy Hx Recreational Drug Use: Yes Drugs: Cocaine - Crack cocaine Hx Prescription Drug Abuse: No - patient denies - Advance Directive Resuscitation Status: Full Code Family History Family History: Hypertension Parental Family History Reviewed: Yes Children Family History Reviewed: Yes Sibling(s) Family History Reviewed.: Yes Medication/Allergy Home Medications: Duloxetine HCl [Cymbalta] 60 mg PO DAILY #30 capsule. 09/29/16 Folic Acid [Folvite 1 mg Tablet] 1 mg PO DAILY #30 tablet 09/29/16 Hydralazine HCl [Apresoline 50 mg Tablet] 50 mg PO Q8 #90 tablet 09/29/16 Losartan Potassium [Cozaar 50 mg Tablet] 100 mg PO DAILY #30 tablet 09/29/16 Allergies/Adverse Reactions: amoxicillin [From Augmentin] Allergy (Verified 12/04/16 17:02) Generalized Itching cephalexin [From Keflex] Allergy (Verified 12/04/16 17:02) clavulanic acid [From Augmentin] Allergy (Verified 12/04/16 17:02) sulfamethoxazole [From Septra] Allergy (Verified 12/04/16 17:02) trimethoprim [From Septra] Allergy (Verified 12/04/16 17:02) Review of Systems All systems: reviewed and no additional remarkable complaints except as stated Physical Exam Vital Signs: Temp Pulse Resp BP Pulse Ox 98.1 F 100 15 114/58 L 100 12/06/16 08:43 12/06/16 08:43 12/06/16 08:43 12/06/16 08:43 12/06/16 08:43 Intake & Output 12/05/16 12/06/16 12/07/16 06:59 06:59 06:59 Intake Total 1223 8578 Output Total 1420 Balance 1223 7158 Weight 48.3 kg 48.3 kg General appearance: PRESENT: no acute distress Head exam: PRESENT: normocephalic Eye exam: PRESENT: EOMI Mouth exam: PRESENT: moist, tongue midline Neck exam: ABSENT: JVD, lymphadenopathy, thyromegaly, tracheal deviation Respiratory exam: PRESENT: clear to auscultation rei Cardiovascular exam: PRESENT: RRR GI/Abdominal exam: PRESENT: soft, other - Well-healed midline abdominal incision. ABSENT: distended, tenderness Extremities exam: PRESENT: tenderness, other - Right lower extremity with full- thickness, stage IV chronic wound. Measures 18 cm longitudinally by 16 cm transversely, wrapping around the back of the leg. At its widest point, there is only 7 cm of skin on the posterior calf which is not involved. There is tendon exposed anteriorly and laterally. There is necrotic malodorous tissue throughout the wound bed with granulation tissue visible in other parts. Musculoskeletal exam: PRESENT: tenderness Neurological exam: PRESENT: alert, oriented to person, oriented to place, oriented to time, oriented to situation Psychiatric exam: PRESENT: appropriate affect, normal mood Skin exam: PRESENT: other - See extremities above for details of right leg wound. Multiple previous healed skin lesions including one on her left chest and one nearly healed on her left lateral curtis. Also has an irregular pigmentation with less dark areas, possibly related to previous skin lesions as well. Results Laboratory Results: 12/06/16 06:27 12/06/16 06:27 12/06/16 12/06/16 06:27 06:27 WBC 4.2 RBC 2.92 L Hgb 7.8 L Hct 24.0 L MCV 82 MCH 26.6 L MCHC 32.3 RDW 18.3 H Plt Count 208 Seg Neutrophils % Not Reportable Lymphocytes % Not Reportable Monocytes % Not Reportable Eosinophils % Not Reportable Basophils % Not Reportable Absolute Neutrophils Not Reportable Absolute Lymphocytes Not Reportable Absolute Monocytes Not Reportable Absolute Eosinophils Not Reportable Absolute Basophils Not Reportable Sodium 136.5 L Potassium 4.4 Chloride 110 H Carbon Dioxide 19 L Anion Gap 8 BUN 14 Creatinine 0.59 Est GFR ( Amer) > 60 Est GFR (Non-Af Amer) > 60 Glucose 116 H Calcium 8.7 Impressions: Chest X-Ray 12/04/16 00:00 IMPRESSION: SATISFACTORY PLACEMENT RIGHT IJ VENOUS CATHETER WITHOUT COMPLICATION. OTHERWISE UNREMARKABLE CHEST RADIOGRAPH. Assessment & Plan - Diagnosis (1) Tobacco abuse Is this a current diagnosis for this admission?: Yes (2) Alcohol abuse Is this a current diagnosis for this admission?: Yes (3) Crack cocaine use Is this a current diagnosis for this admission?: Yes (4) Leg wound, right Qualifiers: Encounter type: subsequent encounter Qualified Code(s): S81.801D - Unspecified open wound, right lower leg, subsequent encounter Is this a current diagnosis for this admission?: YesPlan: Late entry for consult on on 12/05/2016. Patient has been admitted under the hospitalist service. I spoken with the hospitalist. She received initial antibiotics on admission, however the plan is to hold further antibiotics until the wound culture is completed. She has allergies or adverse reactions to multiple antibiotics and is running out of options. Additionally the wound has had multidrug-resistant bacteria cultured before including VRE by report. Would like to wait until we have specific therapy to offer to avoid further multidrug resistance. She has eaten, but we will proceed to the operating room later today to debride the wound. We discussed risks benefits and alternatives of surgery including , heart attack, stroke, blood clots in legs, bleedings, infection, pneumonia, damage to surrounding structures such as tendon, ligament, muscle, nerve, bone. She understands and wishes to proceed. (5) SLE (systemic lupus erythematosus) Qualifiers: Systemic lupus erythematosus type: unspecified Systemic lupus erythematosus organ involvement: unspecified Qualified Code(s): M32.9 - Systemic lupus erythematosus, unspecified
--- NOTE | 2016-12-06 12:09 | PDOC PROGRESS REPORT ---
Subjective Progress Note for:: 12/06/16 Subjective:: Right leg pain Physical Exam Vital Signs: Temp Pulse Resp BP Pulse Ox 98.1 F 100 15 114/58 L 100 12/06/16 08:43 12/06/16 08:43 12/06/16 08:43 12/06/16 08:43 12/06/16 08:43 Intake & Output 12/05/16 12/06/16 12/07/16 06:59 06:59 06:59 Intake Total 1223 8569 Output Total 1420 Balance 1223 7199 Weight 48.3 kg 48.3 kg General appearance: PRESENT: mild distress Extremities exam: PRESENT: other - Right leg examined, dressing removed down to the wound. The wound is clean and granulating, varus and desiccated tendon exposed superiorly and inferiorly on the anterior aspect of the wound. Of note she can wiggle her toes. She can flex her leg at the knee. She cannot move her ankle. Results Laboratory Results: 12/06/16 06:27 12/06/16 06:27 12/06/16 12/06/16 06:27 06:27 WBC 4.2 RBC 2.92 L Hgb 7.8 L Hct 24.0 L MCV 82 MCH 26.6 L MCHC 32.3 RDW 18.3 H Plt Count 208 Seg Neutrophils % Not Reportable Lymphocytes % Not Reportable Monocytes % Not Reportable Eosinophils % Not Reportable Basophils % Not Reportable Absolute Neutrophils Not Reportable Absolute Lymphocytes Not Reportable Absolute Monocytes Not Reportable Absolute Eosinophils Not Reportable Absolute Basophils Not Reportable Sodium 136.5 L Potassium 4.4 Chloride 110 H Carbon Dioxide 19 L Anion Gap 8 BUN 14 Creatinine 0.59 Est GFR ( Amer) > 60 Est GFR (Non-Af Amer) > 60 Glucose 116 H Calcium 8.7 Impressions: Chest X-Ray 12/04/16 00:00 IMPRESSION: SATISFACTORY PLACEMENT RIGHT IJ VENOUS CATHETER WITHOUT COMPLICATION. OTHERWISE UNREMARKABLE CHEST RADIOGRAPH. Assessment & Plan - Diagnosis (1) Osteomyelitis of right leg Is this a current diagnosis for this admission?: YesPlan: 1. Aspirin debridement right leg wound. No complications. In this poor, unfortunate drug abusing Afro-[place]ien female with an over 3 year history of chronic wound right leg, polymicrobial, expanding in size despite optimal in and outpatient medical care, now with a frozen ankle, the likelihood of this woman getting skin coverage to close this wound , even after can be infection controlled, very poor. 2. I have suggested to this woman that she would be better off with a below-the -knee amputation, and that she should strongly consider this during this admission. 3. Continue local wound care and intravenous antibiotics.
--- NOTE | 2016-12-06 14:53 | PDOC PROGRESS REPORT ---
Subjective Progress Note for:: 12/06/16 Subjective:: Patient is seen on morning rounds, she is resting comfortably in bed at the present time. She denies any fever or chills overnight. She denies any shortness breath, cough, or chest discomfort. She denies any nausea, vomiting, or diarrhea. She does complain of pain in the right lower extremity. She is known to our service from previous admission for same problem. She apparently has been noncompliant with follow-up treatment in the wound care center. She also has history of cocaine abuse and other illicit substances. She states she has not been using drugs however her urine drug screen which is positive for cocaine. She underwent debridement of her lower right leg yesterday by Dr Tafoya. Wound is now clean with tendon exposure. She can bend and flex her knee but she can't move her right ankle. Physical Exam Vital Signs: Temp Pulse Resp BP Pulse Ox 98.1 F 100 15 114/58 L 100 12/06/16 08:43 12/06/16 08:43 12/06/16 08:43 12/06/16 08:43 12/06/16 08:43 Intake & Output 12/05/16 12/06/16 12/07/16 06:59 06:59 06:59 Intake Total 1223 8578 600 Output Total 1420 Balance 1223 8011 600 Weight 48.3 kg 48.3 kg General appearance: PRESENT: no acute distress, well-developed, well-nourished Head exam: PRESENT: atraumatic, normocephalic Eye exam: PRESENT: conjunctiva pink, EOMI, PERRLA. ABSENT: scleral icterus Ear exam: PRESENT: normal external ear exam Mouth exam: PRESENT: moist, tongue midline Neck exam: ABSENT: carotid bruit, JVD, lymphadenopathy, thyromegaly Respiratory exam: PRESENT: clear to auscultation rei. ABSENT: rales, rhonchi, wheezes Cardiovascular exam: PRESENT: RRR. ABSENT: diastolic murmur, rubs, systolic murmur Pulses: PRESENT: normal dorsalis pedis pul Vascular exam: PRESENT: normal capillary refill GI/Abdominal exam: PRESENT: normal bowel sounds, soft. ABSENT: distended, guarding, mass, organolmegaly, rebound, tenderness Rectal exam: PRESENT: deferred Extremities exam: PRESENT: tenderness, other - right lower extremety with large ulcer not void of necrotic tissue, with tendon exposure. ABSENT: calf tenderness, clubbing, pedal edema Musculoskeletal exam: PRESENT: ambulatory Neurological exam: PRESENT: alert, awake, oriented to person, oriented to place , oriented to time, oriented to situation, CN II-XII grossly intact. ABSENT: motor sensory deficit Psychiatric exam: PRESENT: appropriate affect, normal mood. ABSENT: homicidal ideation, suicidal ideation Skin exam: PRESENT: dry, intact, warm. ABSENT: cyanosis, rash Results Laboratory Results: 12/06/16 06:27 12/06/16 06:27 12/06/16 12/06/16 06:27 06:27 WBC 4.2 RBC 2.92 L Hgb 7.8 L Hct 24.0 L MCV 82 MCH 26.6 L MCHC 32.3 RDW 18.3 H Plt Count 208 Seg Neutrophils % Not Reportable Lymphocytes % Not Reportable Monocytes % Not Reportable Eosinophils % Not Reportable Basophils % Not Reportable Absolute Neutrophils Not Reportable Absolute Lymphocytes Not Reportable Absolute Monocytes Not Reportable Absolute Eosinophils Not Reportable Absolute Basophils Not Reportable Sodium 136.5 L Potassium 4.4 Chloride 110 H Carbon Dioxide 19 L Anion Gap 8 BUN 14 Creatinine 0.59 Est GFR ( Amer) > 60 Est GFR (Non-Af Amer) > 60 Glucose 116 H Calcium 8.7 Impressions: Chest X-Ray 12/04/16 00:00 IMPRESSION: SATISFACTORY PLACEMENT RIGHT IJ VENOUS CATHETER WITHOUT COMPLICATION. OTHERWISE UNREMARKABLE CHEST RADIOGRAPH. Assessment & Plan - Diagnosis (1) Bilateral leg ulcer Is this a current diagnosis for this admission?: YesPlan: Surgery is consulted she will need at least debridement of necrotic lower extremity wounds. As discussed with her at prior admission she is in jeopardy of losing her leg (2) Crack cocaine use Is this a current diagnosis for this admission?: YesPlan: Counseled (3) Protein-calorie malnutrition, moderate Is this a current diagnosis for this admission?: YesPlan: Risk for poor healing. Regular diet with protein supplements (4) Anemia of chronic disease Is this a current diagnosis for this admission?: YesPlan: Continue to monitor (5) Essential hypertension Is this a current diagnosis for this admission?: YesPlan: Continue current medications - Time Time Spent with patient: 25-34 minutes Critical Time spent with patient: 15-24 minutes Medications reviewed and adjusted accordingly: Yes Anticipated discharge: Home - Inpatient Certification Based on my medical assessment, after consideration of the patient's comorbidities, presenting symptoms, or acuity I expect that the services needed warrant INPATIENT care.: Yes I certify that my determination is in accordance with my understanding of Medicare's requirements for reasonable and necessary INPATIENT services [42 CFR 412.3e].: Yes Medical Necessity: Need For IV Fluids
[2016-12-06] MEDS: OXYCODONE HCL IR 5 MG TABLET PO PRN (20:07)
[2016-12-07] MEDS: OXYCODONE-ACETAMINOPHEN 5-325 MG TABLET PO PRN ×3 (01:10→17:21)
[2016-12-07] MEDS: HYDRALAZINE HCL 50 MG TABLET PO SCH ×3 (06:39→21:27)
[2016-12-07] MEDS: OXYCODONE HCL IR 5 MG TABLET PO PRN ×3 (06:39→21:27)
[2016-12-07] MEDS: HEPARIN SOD (PORCINE) 5,000 UNIT/ML 1 ML SYRINGE SUBCUT SCH ×3 (06:40→21:27)
[2016-12-07] MEDS: KETOROLAC TROMETHAMINE INJ/PF 30 MG/1 ML SDV IV PRN ×2 (06:40→14:55)
[2016-12-07 09:00] LABS: ABSOLUTE LYMPHOCYTES (AUTO) 1.6 10^3/uL (0.5-4.7); ABSOLUTE MONOCYTES (AUTO) 0.4 10^3/uL (0.1-1.4); ABSOLUTE NEUT (AUTO) 2.5 10^3/uL (1.7-8.2); BASOPHILS % (AUTO) 0.4 % (0-2); EOSINOPHILS % (AUTO) 0.4 % (0-6); HEMATOCRIT 22.9 % (36.0-47.0); LYMPHOCYTES % (AUTO) 35.1 % (13-45); MEAN CORPUSCULAR HGB CONC 31.9 g/dL (32.0-36.0); MEAN CORPUSCULAR VOLUME 82 fl (80-97); MONOCYTES % (AUTO) 7.9 % (3-13); RED CELL DISTRIBUTION WIDTH 18.4 % (11.5-14.0); SEGMENTED NEUTROPHILS % (AUTO) 56.2 % (42-78); WHITE BLOOD COUNT 4.4 10^3/uL (4.0-10.5)
[2016-12-07 09:10] LABS: ANION GAP 5 (5-19); BLOOD UREA NITROGEN 14 mg/dL (7-20); CALCIUM 8.3 mg/dL (8.4-10.2); CARBON DIOXIDE 22 mmol/L (22-30); CHLORIDE 111 mmol/L (98-107); CREATININE RESULT 0.56 mg/dL (0.52-1.25); GLUCOSE 74 mg/dL (75-110); POTASSIUM 4.2 mmol/L (3.6-5.0); SODIUM 138.4 mmol/L (137-145)
[2016-12-07 09:27] LABS: HEMOGLOBIN 7.3 g/dL (12.0-15.5)
[2016-12-07 09:28] LABS: ANISOCYTOSIS 2+; HYPOCHROMASIA 2+; POIKILOCYTOSIS SLIGHT; POLYCHROMASIA SLIGHT; TARGET CELLS SLIGHT; TEAR DROP CELLS SLIGHT
[2016-12-07] MEDS ORDERED: NORMAL SALINE 250 ML IV PRN ×2 (09:56)
[2016-12-07] MEDS: THIAMINE HCL 100 MG TABLET PO SCH (10:54)
[2016-12-07] MEDS: DULOXETINE HCL 30 MG CAPSULE.DR PO SCH (10:54)
[2016-12-07] MEDS: CHOLECALCIFEROL (D3) 1,000 UNIT TABLET PO SCH (10:54)
[2016-12-07] MEDS: LOSARTAN POTASSIUM 50 MG TABLET PO SCH (10:54)
[2016-12-07] MEDS: FOLIC ACID 1 MG TABLET PO SCH (10:54)
[2016-12-07] MEDS: DOCUSATE SODIUM 100 MG CAPSULE PO SCH ×2 (10:54→17:22)
[2016-12-07] MEDS: IRON POLYSACCHARIDES COMPLEX 150 MG CAPSULE PO SCH (10:54)
[2016-12-07] MEDS: ASCORBIC ACID 500 MG TABLET PO SCH ×2 (10:55→17:21)
[2016-12-07] MEDS: MAGNESIUM HYDROXIDE SUSP 30 ML UDCUP PO SCH (10:56)
[2016-12-07] MEDS: LEVOFLOXACIN 750 MG/D5W RTU 150 ML IV SCH (10:56)
--- NOTE | 2016-12-07 11:53 | PDOC PROGRESS REPORT ---
Subjective Progress Note for:: 12/07/16 Subjective:: Patient has agreed to a right below the knee amputation. Physical Exam Vital Signs: Temp Pulse Resp BP Pulse Ox 97.7 F 82 14 104/54 L 100 12/07/16 07:42 12/07/16 07:42 12/07/16 07:42 12/07/16 07:42 12/07/16 07:42 Intake & Output 12/06/16 12/07/16 12/08/16 06:59 06:59 06:59 Intake Total 8578 3138 Output Total 1420 Balance 7158 3138 Weight 48.3 kg 48.3 kg General appearance: PRESENT: no acute distress Musculoskeletal exam: PRESENT: other - Right lower extremity dressing intact. Results Laboratory Results: 12/07/16 06:35 12/07/16 06:35 12/07/16 12/07/16 06:35 06:35 WBC 4.4 RBC 2.80 L Hgb 7.3 L Hct 22.9 L MCV 82 MCH 26.0 L MCHC 31.9 L RDW 18.4 H Plt Count 238 Seg Neutrophils % 56.2 Lymphocytes % 35.1 Monocytes % 7.9 Eosinophils % 0.4 Basophils % 0.4 Absolute Neutrophils 2.5 Absolute Lymphocytes 1.6 Absolute Monocytes 0.4 Absolute Eosinophils 0.0 Absolute Basophils 0.0 Sodium 138.4 Potassium 4.2 Chloride 111 H Carbon Dioxide 22 Anion Gap 5 BUN 14 Creatinine 0.56 Est GFR ( Amer) > 60 Est GFR (Non-Af Amer) > 60 Glucose 74 L Calcium 8.3 L Impressions: Chest X-Ray 12/04/16 00:00 IMPRESSION: SATISFACTORY PLACEMENT RIGHT IJ VENOUS CATHETER WITHOUT COMPLICATION. OTHERWISE UNREMARKABLE CHEST RADIOGRAPH. Assessment & Plan - Diagnosis (1) Osteomyelitis of right leg Is this a current diagnosis for this admission?: Yes (2) Chronic wound of extremity Is this a current diagnosis for this admission?: YesPlan: 1. Patient has agreed to right below the knee amputation. This is the Most reasonable management strategy for this poor unfortunate woman who continues to abuse herself with drugs. 2. We will set the operation up for December 09 - Time Time Spent with patient: 15-24 minutes
--- NOTE | 2016-12-07 15:43 | PDOC PROGRESS REPORT ---
Subjective Progress Note for:: 12/07/16 Subjective:: Patient is seen on morning rounds, she is resting comfortably in bed at the present time. She denies any fever or chills overnight. She denies any shortness breath, cough, or chest discomfort. She denies any nausea, vomiting, or diarrhea. She does complain of pain in the right lower extremity. She is known to our service from previous admission for same problem. She apparently has been noncompliant with follow-up treatment in the wound care center. She also has history of cocaine abuse and other illicit substances. She states she has not been using drugs however her urine drug screen which is positive for cocaine. She underwent debridement of her lower right leg by Dr Tafoya on Wednesday. Wound is now clean with tendon exposure. She can bend and flex her knee but she can't move her right ankle. Physical Exam Vital Signs: Temp Pulse Resp BP Pulse Ox 98.2 F 63 17 115/91 H 95 12/07/16 13:22 12/07/16 13:22 12/07/16 13:22 12/07/16 13:22 12/07/16 13:22 Intake & Output 12/06/16 12/07/16 12/08/16 06:59 06:59 06:59 Intake Total 8578 3138 300 Output Total 1420 Balance 7158 3138 300 Weight 48.3 kg 48.3 kg General appearance: PRESENT: no acute distress, thin, well-developed Head exam: PRESENT: atraumatic, normocephalic Eye exam: PRESENT: conjunctiva pink, EOMI, PERRLA. ABSENT: scleral icterus Ear exam: PRESENT: normal external ear exam Mouth exam: PRESENT: moist, tongue midline Neck exam: ABSENT: carotid bruit, JVD, lymphadenopathy, thyromegaly Respiratory exam: PRESENT: clear to auscultation rei. ABSENT: rales, rhonchi, wheezes Cardiovascular exam: PRESENT: RRR. ABSENT: diastolic murmur, rubs, systolic murmur Pulses: PRESENT: normal dorsalis pedis pul Vascular exam: PRESENT: normal capillary refill GI/Abdominal exam: PRESENT: normal bowel sounds, soft. ABSENT: distended, guarding, mass, organolmegaly, rebound, tenderness Rectal exam: PRESENT: deferred Extremities exam: PRESENT: full ROM. ABSENT: calf tenderness, clubbing, pedal edema Neurological exam: PRESENT: alert, awake, oriented to person, oriented to place , oriented to time, oriented to situation, CN II-XII grossly intact. ABSENT: motor sensory deficit Psychiatric exam: PRESENT: appropriate affect, normal mood. ABSENT: homicidal ideation, suicidal ideation Skin exam: PRESENT: dry, intact, warm. ABSENT: cyanosis, rash Results Laboratory Results: 12/07/16 06:35 12/07/16 06:35 12/07/16 12/07/16 12/07/16 06:35 06:35 10:38 WBC 4.4 RBC 2.80 L Hgb 7.3 L Hct 22.9 L MCV 82 MCH 26.0 L MCHC 31.9 L RDW 18.4 H Plt Count 238 Seg Neutrophils % 56.2 Lymphocytes % 35.1 Monocytes % 7.9 Eosinophils % 0.4 Basophils % 0.4 Absolute Neutrophils 2.5 Absolute Lymphocytes 1.6 Absolute Monocytes 0.4 Absolute Eosinophils 0.0 Absolute Basophils 0.0 Sodium 138.4 Potassium 4.2 Chloride 111 H Carbon Dioxide 22 Anion Gap 5 BUN 14 Creatinine 0.56 Est GFR ( Amer) > 60 Est GFR (Non-Af Amer) > 60 Glucose 74 L Calcium 8.3 L Blood Type O POSITIVE Antibody Screen NEGATIVE Impressions: Chest X-Ray 12/04/16 00:00 IMPRESSION: SATISFACTORY PLACEMENT RIGHT IJ VENOUS CATHETER WITHOUT COMPLICATION. OTHERWISE UNREMARKABLE CHEST RADIOGRAPH. Assessment & Plan - Diagnosis (1) Bilateral leg ulcer Is this a current diagnosis for this admission?: YesPlan: Surgery is consulted she will need at least debridement of necrotic lower extremity wounds. As discussed with her at prior admission she may need BKA. Surgialist are following (2) Crack cocaine use Is this a current diagnosis for this admission?: YesPlan: Counseled (3) Protein-calorie malnutrition, moderate Is this a current diagnosis for this admission?: YesPlan: Risk for poor healing. Regular diet with protein supplements (4) Anemia of chronic disease Is this a current diagnosis for this admission?: YesPlan: Hgb 7.3 will transfuse 2 units of PRBCs today. Patient is in agreement (5) Essential hypertension Is this a current diagnosis for this admission?: Yes - Time Time Spent with patient: 25-34 minutes Critical Time spent with patient: 15-24 minutes Medications reviewed and adjusted accordingly: Yes
[2016-12-07] MEDS ORDERED: MAG CARB/AL HYDROX/ALGINIC AC 355 ML BOTTLE PO PRN (16:14)
[2016-12-07 20:25] LABS: HEMATOCRIT 32.1 % (36.0-47.0); MEAN CORPUSCULAR HEMOGLOBIN 27.1 pg (27.0-33.4); MEAN CORPUSCULAR HGB CONC 33.3 g/dL (32.0-36.0); MEAN CORPUSCULAR VOLUME 82 fl (80-97); RED BLOOD COUNT 3.93 10^6/uL (3.72-5.28); RED CELL DISTRIBUTION WIDTH 16.6 % (11.5-14.0); WHITE BLOOD COUNT 3.9 10^3/uL (4.0-10.5)
[2016-12-07 20:51] LABS: BAND NEUTROPHILS % (MANUAL) 1 % (3-5); BASOPHILS % (MANUAL) 0 % (0-2); EOSINOPHILS % (MANUAL) 0 % (0-6); LYMPHOCYTES % (MANUAL) 28 % (13-45); TOTAL CELLS COUNTED 100
[2016-12-07 20:52] LABS: ANISOCYTOSIS 1+; HYPOCHROMASIA 1+; OVALOCYTES SLIGHT; POIKILOCYTOSIS SLIGHT; TARGET CELLS SLIGHT
[2016-12-07 20:53] LABS: HEMOGLOBIN 10.7 g/dL (12.0-15.5)
[2016-12-08] MEDS: NORMAL SALINE 1000 ML 1,000 ML IV PRN (00:39)
[2016-12-08] MEDS: KETOROLAC TROMETHAMINE INJ/PF 30 MG/1 ML SDV IV PRN ×3 (00:39→21:44)
[2016-12-08] MEDS: OXYCODONE-ACETAMINOPHEN 5-325 MG TABLET PO PRN ×4 (05:49→19:29)
[2016-12-08] MEDS: HYDRALAZINE HCL 50 MG TABLET PO SCH ×3 (05:49→21:43)
[2016-12-08] MEDS: HEPARIN SOD (PORCINE) 5,000 UNIT/ML 1 ML SYRINGE SUBCUT SCH ×3 (05:49→21:45)
[2016-12-08] MEDS: LEVOFLOXACIN 750 MG/D5W RTU 150 ML IV SCH (10:06)
[2016-12-08] MEDS: THIAMINE HCL 100 MG TABLET PO SCH (10:07)
[2016-12-08] MEDS: FOLIC ACID 1 MG TABLET PO SCH (10:08)
[2016-12-08] MEDS: DOCUSATE SODIUM 100 MG CAPSULE PO SCH ×2 (10:08→17:04)
[2016-12-08] MEDS: LOSARTAN POTASSIUM 50 MG TABLET PO SCH (10:08)
[2016-12-08] MEDS: CHOLECALCIFEROL (D3) 1,000 UNIT TABLET PO SCH (10:08)
[2016-12-08] MEDS: ASCORBIC ACID 500 MG TABLET PO SCH ×2 (10:08→17:04)
[2016-12-08] MEDS: DULOXETINE HCL 30 MG CAPSULE.DR PO SCH (10:08)
[2016-12-08] MEDS: IRON POLYSACCHARIDES COMPLEX 150 MG CAPSULE PO SCH (10:10)
[2016-12-08] MEDS: MAGNESIUM HYDROXIDE SUSP 30 ML UDCUP PO SCH (10:11)
[2016-12-08] MEDS ORDERED: MAG HYDROX/AL HYDROX/SIMETH SUSP 30 ML UDCUP PO ONE (12:00)
[2016-12-08] MEDS ORDERED: METOCLOPRAMIDE HCL ORAL SOLN 10 MG/10 ML UDCUP PO ONE (12:00)
[2016-12-08] MEDS ORDERED: LIDOCAINE 2% VISCOUS SOLN 20 ML UDCUP PO ONE (12:00)
[2016-12-08] MEDS: OXYCODONE HCL IR 5 MG TABLET PO PRN (15:27)
--- NOTE | 2016-12-08 15:40 | PDOC PROGRESS REPORT ---
Subjective Progress Note for:: 12/08/16 Subjective:: The patient was seen earlier today on rounds. The patient complains of reflux. The patient is to go to the OR in the a.m. for amputation. The patient denies any nausea, vomiting, diarrhea, shortness of breath, dizziness, chest pain, heart palpitations, fevers, or chills. The patient has remained afebrile. Blood pressures have been in a good range. When prompted the patient voices no other concerns at this time. Review of systems: The rest of the review of systems is negative. Physical Exam Vital Signs: Temp Pulse Resp BP Pulse Ox 98.0 F 76 12 141/81 H 100 12/08/16 12:13 12/08/16 12:13 12/08/16 12:13 12/08/16 12:13 12/08/16 12:13 Intake & Output 12/06/16 12/07/16 12/08/16 23:59 23:59 23:59 Intake Total 2688 3688 1574 Output Total 2300 Balance 2688 1388 1574 Weight 48.3 kg 48.3 kg 48.3 kg General appearance: PRESENT: no acute distress, disheveled, thin. ABSENT: well- nourished Head exam: PRESENT: atraumatic, normocephalic Eye exam: PRESENT: conjunctiva pale, EOMI, PERRLA. ABSENT: periorbital swelling , scleral icterus Mouth exam: PRESENT: moist, tongue midline Neck exam: ABSENT: carotid bruit, JVD, lymphadenopathy, thyromegaly, tracheal deviation Respiratory exam: PRESENT: decreased breath sounds, symmetrical, unlabored. ABSENT: tachypnea, wheezes Cardiovascular exam: PRESENT: RRR GI/Abdominal exam: PRESENT: firm, normal bowel sounds, soft. ABSENT: guarding, mass Rectal exam: PRESENT: deferred Extremities exam: ABSENT: calf tenderness, clubbing, pedal edema Neurological exam: PRESENT: alert, awake, oriented to person, oriented to place , oriented to time, oriented to situation. ABSENT: CN II-XII grossly intact, motor sensory deficit Psychiatric exam: PRESENT: appropriate affect, unusual affect - Really pleasant considering the circumstances. ABSENT: homicidal ideation, suicidal ideation Skin exam: PRESENT: dry, erythema, mottled, rash. ABSENT: intact Results Laboratory Results: 12/07/16 20:00 12/07/16 06:35 12/07/16 12/07/16 10:38 20:00 WBC 3.9 L RBC 3.93 Hgb 10.7 L D Hct 32.1 L MCV 82 MCH 27.1 MCHC 33.3 RDW 16.6 H Plt Count 225 Seg Neutrophils % Not Reportable Lymphocytes % Not Reportable Monocytes % Not Reportable Eosinophils % Not Reportable Basophils % Not Reportable Absolute Neutrophils Not Reportable Absolute Lymphocytes Not Reportable Absolute Monocytes Not Reportable Absolute Eosinophils Not Reportable Absolute Basophils Not Reportable Blood Type O POSITIVE Antibody Screen NEGATIVE 12/05/16 16:16 Leg - Deep Wound Gram Stain - Final 12/05/16 16:16 Leg - Deep Wound Wound Culture - Final Providencia Rettgeri Enterococcus Faecalis(Group D) Enterococcus Raffinosus Corynebacterium Species Prevotella Species Peptostreptococcus Species Impressions: Chest X-Ray 12/04/16 00:00 IMPRESSION: SATISFACTORY PLACEMENT RIGHT IJ VENOUS CATHETER WITHOUT COMPLICATION. OTHERWISE UNREMARKABLE CHEST RADIOGRAPH. Assessment & Plan - Diagnosis (1) Osteomyelitis of right leg Is this a current diagnosis for this admission?: YesPlan: To the OR in the a.m. for amputation (2) Crack cocaine use Is this a current diagnosis for this admission?: YesPlan: Positive on admission (3) Tobacco abuse Is this a current diagnosis for this admission?: Yes (4) Alcohol use Is this a current diagnosis for this admission?: Yes (5) Protein-calorie malnutrition, moderate Is this a current diagnosis for this admission?: Yes (6) Anemia of chronic disease Is this a current diagnosis for this admission?: YesPlan: Will continue to supplement (7) Vasculitis Is this a current diagnosis for this admission?: YesPlan: 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 (8) Atopic dermatitis, unspecified Qualifiers: Atopic dermatitis type: unspecified Qualified Code(s): L20.9 - Atopic dermatitis, unspecified Is this a current diagnosis for this admission?: Yes (9) Essential hypertension Is this a current diagnosis for this admission?: Yes (10) Gastroesophageal reflux disease Qualifiers: Esophagitis presence: without esophagitis Qualified Code(s): K21.9 - Gastro-esophageal reflux disease without esophagitis Is this a current diagnosis for this admission?: Yes (11) Hypokalemia Is this a current diagnosis for this admission?: YesPlan: Resolved (12) SLE (systemic lupus erythematosus) Qualifiers: Systemic lupus erythematosus type: unspecified Systemic lupus erythematosus organ involvement: unspecified Qualified Code(s): M32.9 - Systemic lupus erythematosus, unspecified - Time Time Spent with patient: 25-34 minutes Medications reviewed and adjusted accordingly: Yes
--- NOTE | 2016-12-08 23:38 | PDOC PROGRESS REPORT ---
Subjective Subjective:: Late entry. Rounded on earlier today. No complaints. Eating well. Physical Exam Vital Signs: Temp Pulse Resp BP Pulse Ox 98.9 F 87 18 131/74 H 100 12/08/16 20:01 12/08/16 20:01 12/08/16 20:01 12/08/16 20:01 12/08/16 20:01 Intake & Output 12/07/16 12/08/16 12/09/16 06:59 06:59 06:59 Intake Total 3138 3724 1977 Output Total 2300 400 Balance 3138 1424 1577 Weight 48.3 kg 48.3 kg General appearance: PRESENT: no acute distress Head exam: PRESENT: normocephalic Extremities exam: PRESENT: other - Large right lower extremity wound. Wound care: All dressing removed. Wound inspected. Granulation tissue throughout base. Still with swelling, edema and erythema around the wound edges, but improved. Neurological exam: PRESENT: alert, oriented to situation Results Laboratory Results: 12/07/16 20:00 12/07/16 06:35 12/05/16 16:16 Leg - Deep Wound Gram Stain - Final 12/05/16 16:16 Leg - Deep Wound Wound Culture - Final Providencia Rettgeri Enterococcus Faecalis(Group D) Enterococcus Raffinosus Corynebacterium Species Prevotella Species Peptostreptococcus Species Impressions: Chest X-Ray 12/04/16 00:00 IMPRESSION: SATISFACTORY PLACEMENT RIGHT IJ VENOUS CATHETER WITHOUT COMPLICATION. OTHERWISE UNREMARKABLE CHEST RADIOGRAPH. Assessment & Plan - Diagnosis (1) Tobacco abuse Is this a current diagnosis for this admission?: Yes (2) Alcohol abuse Is this a current diagnosis for this admission?: Yes (3) Crack cocaine use Is this a current diagnosis for this admission?: Yes (4) Leg wound, right Qualifiers: Encounter type: subsequent encounter Qualified Code(s): S81.801D - Unspecified open wound, right lower leg, subsequent encounter Is this a current diagnosis for this admission?: YesPlan: Planning on a right BKA with Dr. Lee tomorrow. Continue diet through midnight, then nothing by mouth at midnight. Discussed good wound healing factors: Alcohol abstinence, drug abstinence, smoking abstinence, good diet. (5) SLE (systemic lupus erythematosus) Qualifiers: Systemic lupus erythematosus type: unspecified Systemic lupus erythematosus organ involvement: unspecified Qualified Code(s): M32.9 - Systemic lupus erythematosus, unspecified
[2016-12-09] MEDS: NORMAL SALINE 1000 ML 1,000 ML IV PRN (06:29)
[2016-12-09] MEDS: HYDRALAZINE HCL 50 MG TABLET PO SCH ×3 (06:29→22:01)
[2016-12-09] MEDS: OXYCODONE HCL IR 5 MG TABLET PO PRN ×3 (06:29→22:01)
[2016-12-09] MEDS: MAGNESIUM HYDROXIDE SUSP 30 ML UDCUP PO SCH (10:22)
[2016-12-09] MEDS: FOLIC ACID 1 MG TABLET PO SCH (10:22)
[2016-12-09] MEDS: CHOLECALCIFEROL (D3) 1,000 UNIT TABLET PO SCH (10:22)
[2016-12-09] MEDS: IRON POLYSACCHARIDES COMPLEX 150 MG CAPSULE PO SCH (10:22)
[2016-12-09] MEDS: ASCORBIC ACID 500 MG TABLET PO SCH ×2 (10:22→17:41)
[2016-12-09] MEDS: DOCUSATE SODIUM 100 MG CAPSULE PO SCH ×2 (10:22→17:41)
[2016-12-09] MEDS: KETOROLAC TROMETHAMINE INJ/PF 30 MG/1 ML SDV IV PRN ×2 (10:25→17:00)
[2016-12-09] MEDS: LOSARTAN POTASSIUM 50 MG TABLET PO SCH (10:28)
[2016-12-09] MEDS: DULOXETINE HCL 30 MG CAPSULE.DR PO SCH (10:28)
[2016-12-09] MEDS: LEVOFLOXACIN 750 MG/D5W RTU 150 ML IV SCH (10:28)
[2016-12-09] MEDS: THIAMINE HCL 100 MG TABLET PO SCH (10:28)
[2016-12-09] MEDS ORDERED: LIDOCAINE 1% INJ-PF (10 MG/ML) 30 ML SDV ONE (12:45)
[2016-12-09] MEDS ORDERED: MIDAZOLAM 2 MG/2 ML INJ ONE (13:12)
[2016-12-09] MEDS ORDERED: FENTANYL CITRATE INJ/PF 100 MCG/2 ML AMPUL ONE (13:12)
[2016-12-09] MEDS ORDERED: EPHEDRINE SULFATE INJ 50 MG/1 ML AMPULE ONE (13:12)
[2016-12-09] MEDS ORDERED: ONDANSETRON HCL INJ/PF 4 MG/2 ML SDV ONE (13:13)
[2016-12-09] MEDS ORDERED: PROPOFOL INJ 200 MG/20 ML VIAL IV ONE (13:13)
[2016-12-09] MEDS ORDERED: FENTANYL CITRATE INJ/PF 100 MCG/2 ML AMPUL IV PRN ×3 (13:48)
[2016-12-09] MEDS ORDERED: DIPHENHYDRAMINE HCL 50 MG/ML VIAL IV PRN (13:48)
[2016-12-09] MEDS ORDERED: PROMETHAZINE HCL INJ 25 MG/1 ML VIAL IV PRN (13:48)
[2016-12-09] MEDS ORDERED: HYDROMORPHONE HCL INJ/PF 2 MG/ML AMPULE ONE ×2 (14:22→16:09)
[2016-12-09] MEDS ORDERED: KETAMINE HCL INJ 500 MG/10 ML VIAL ONE (14:25)
--- NOTE | 2016-12-09 15:13 | Operative Report ---
Nonrecallable Operative Report DATE OF SURGERY: 12/09/16 PREOPERATIVE DIAGNOSIS: chronic soft tissue infection and nonhealing wound POSTOPERATIVE DIAGNOSIS: Same OPERATION: Right [id number] amputation with primary closure of stump SURGEON: TIAGO MASTERS LENDING MANAGER: TIFFANY BAUM ANESTHESIA: GA TISSUE REMOVED OR ALTERED: Right leg [id number] COMPLICATIONS: None ESTIMATED BLOOD LOSS: 2 50 mL INTRAOPERATIVE FINDINGS: See below PROCEDURE: The patient was seen in the preoperative holding area with the right leg was marked. She was then taken to the operating room where general anesthesia was induced. The right lower extremity dressing was wrapped with a Coban area to the mid lower leg. The right leg from the groin to the wrapped dressing was prepped and draped sterile fashion. Surgical plan and surgical timeout were conducted. A standard [id number] amputation incision was made anterior flap approximately 8-10 cm distal to the tibial tuberosity, and the posterior flap approximately 20 cm distal to the anterior tuberosity. Muscle was divided with electrocautery. Blood vessels were tied off with 0 3-0 Vicryl sutures as encountered. Elevated was used to remove the ligamentous attachments to the tibia and the fibula. Both the tibia and fibula were divided with the oscillating saw. Remainder of the right leg musculature divided. Right lobe was passed off to pathology. We subsequently shortened the transected tibia by cutting it on a bias, and the fibula and a comparable fashion with the oscillating saw. Ragged edges were debrided with the bone margins. The stasis was satisfactory. There Was no bleeding from the transected bone. Then closed the stump comfortably without tension by creating a myodesis 2-0 Vicryl suture, and the skin approximated with 3-0 Ethilon and lorraine. Xeroform 4 x 4's Curlex and 4 inch Tanner wrap applied. Patient tolerated the procedure well then taken recovery in stable condition. The physician occupational therapist assistant, Ms. Baum, provided assistance during this case by: Assisting with retracting tissue, instillation of local anesthesia and closure of skin incisions.
[2016-12-09] MEDS: FENTANYL CITRATE INJ/PF 100 MCG/2 ML AMPUL ONE ×2 (15:20→15:25)
[2016-12-09] MEDS: HYDROMORPHONE HCL INJ/PF 2 MG/ML AMPULE ONE ×2 (15:38→15:48)
--- NOTE | 2016-12-09 16:24 | PDOC PROGRESS REPORT ---
Subjective Progress Note for:: 12/09/16 Subjective:: The patient was seen earlier today on rounds. The patient is to go to the OR. for amputation. The patient denies any nausea, vomiting, diarrhea, shortness of breath, dizziness, chest pain, heart palpitations, fevers, or chills. The patient has remained afebrile. Blood pressures have been in a good range. When prompted the patient voices no other concerns at this time. Review of systems: The rest of the review of systems is negative. Physical Exam Vital Signs: Temp Pulse Resp BP Pulse Ox 98 F 81 20 149/92 H 100 12/09/16 15:06 12/09/16 16:06 12/09/16 16:06 12/09/16 16:06 12/09/16 16:06 Intake & Output 12/07/16 12/08/16 12/09/16 23:59 23:59 23:59 Intake Total 3688 3931 3827 Output Total 2300 1200 2400 Balance 1388 2731 1427 Weight 48.3 kg 48.3 kg 48.1 kg General appearance: PRESENT: no acute distress, disheveled, thin. ABSENT: well- nourished Head exam: PRESENT: atraumatic, normocephalic Eye exam: PRESENT: conjunctiva pale, EOMI, PERRLA. ABSENT: periorbital swelling , scleral icterus Mouth exam: PRESENT: moist, tongue midline Neck exam: ABSENT: carotid bruit, JVD, lymphadenopathy, thyromegaly, tracheal deviation Respiratory exam: PRESENT: decreased breath sounds, symmetrical, unlabored. ABSENT: tachypnea, wheezes Cardiovascular exam: PRESENT: RRR GI/Abdominal exam: PRESENT: firm, normal bowel sounds, soft. ABSENT: guarding, mass Rectal exam: PRESENT: deferred Extremities exam: ABSENT: calf tenderness, clubbing, pedal edema Neurological exam: PRESENT: alert, awake, oriented to person, oriented to place , oriented to time, oriented to situation. ABSENT: CN II-XII grossly intact, motor sensory deficit Psychiatric exam: PRESENT: appropriate affect, unusual affect - Really pleasant considering the circumstances. ABSENT: homicidal ideation, suicidal ideation Skin exam: PRESENT: dry, erythema, mottled, rash. ABSENT: inta Results Laboratory Results: 12/07/16 20:00 12/07/16 06:35 12/05/16 00:30 Leg - Not Specified Gram Stain - Final 12/05/16 00:30 Leg - Not Specified Wound Culture - Final Skin Camille 12/05/16 16:16 Leg - Deep Wound Gram Stain - Final 12/05/16 16:16 Leg - Deep Wound Wound Culture - Final Providencia Rettgeri Enterococcus Faecalis(Group D) Enterococcus Raffinosus Corynebacterium Species Prevotella Species Peptostreptococcus Species Impressions: Chest X-Ray 12/04/16 00:00 IMPRESSION: SATISFACTORY PLACEMENT RIGHT IJ VENOUS CATHETER WITHOUT COMPLICATION. OTHERWISE UNREMARKABLE CHEST RADIOGRAPH. Assessment & Plan - Diagnosis (1) Osteomyelitis of right leg Is this a current diagnosis for this admission?: YesPlan: To the OR for amputation (2) Crack cocaine use Is this a current diagnosis for this admission?: YesPlan: Positive on admission (3) Tobacco abuse Is this a current diagnosis for this admission?: Yes (4) Alcohol use Is this a current diagnosis for this admission?: Yes (5) Protein-calorie malnutrition, moderate Is this a current diagnosis for this admission?: Yes (6) Anemia of chronic disease Is this a current diagnosis for this admission?: YesPlan: Will continue to supplement (7) Vasculitis Is this a current diagnosis for this admission?: YesPlan: 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 (8) Atopic dermatitis, unspecified Qualifiers: Atopic dermatitis type: unspecified Qualified Code(s): L20.9 - Atopic dermatitis, unspecified Is this a current diagnosis for this admission?: Yes (9) Essential hypertension Is this a current diagnosis for this admission?: Yes (10) Gastroesophageal reflux disease Qualifiers: Esophagitis presence: without esophagitis Qualified Code(s): K21.9 - Gastro-esophageal reflux disease without esophagitis Is this a current diagnosis for this admission?: Yes (11) Hypokalemia Is this a current diagnosis for this admission?: YesPlan: Resolved (12) SLE (systemic lupus erythematosus) Qualifiers: Systemic lupus erythematosus type: unspecified Systemic lupus erythematosus organ involvement: unspecified Qualified Code(s): M32.9 - Systemic lupus erythematosus, unspecified - Time Time Spent with patient: 25-34 minutes Medications reviewed and adjusted accordingly: Yes
[2016-12-09] MEDS: OXYCODONE-ACETAMINOPHEN 5-325 MG TABLET PO PRN (19:18)
[2016-12-09 22:48] LABS: ANION GAP 5 (5-19); BLOOD UREA NITROGEN 14 mg/dL (7-20); CALCIUM 8.3 mg/dL (8.4-10.2); CARBON DIOXIDE 25 mmol/L (22-30); CHLORIDE 106 mmol/L (98-107); CREATININE RESULT 0.57 mg/dL (0.52-1.25); GLUCOSE 98 mg/dL (75-110); POTASSIUM 3.9 mmol/L (3.6-5.0); SODIUM 136.2 mmol/L (137-145)
[2016-12-09] MEDS ORDERED: KETOROLAC TROMETHAMINE INJ/PF 30 MG/1 ML SDV ONE (23:12)
[2016-12-10] MEDS: OXYCODONE-ACETAMINOPHEN 5-325 MG TABLET PO PRN ×4 (00:25→19:19)
[2016-12-10] MEDS: OXYCODONE HCL IR 5 MG TABLET PO PRN ×4 (02:52→17:25)
[2016-12-10] MEDS: KETOROLAC TROMETHAMINE INJ/PF 30 MG/1 ML SDV IV PRN ×3 (06:02→21:50)
[2016-12-10] MEDS: HYDRALAZINE HCL 50 MG TABLET PO SCH ×3 (06:02→21:50)
[2016-12-10] MEDS: HEPARIN SOD (PORCINE) 5,000 UNIT/ML 1 ML SYRINGE SUBCUT SCH ×3 (06:02→21:50)
[2016-12-10] MEDS ORDERED: MORPHINE SULFATE 10 MG/ML INJ ONE (07:01)
[2016-12-10] MEDS ORDERED: MORPHINE SULFATE 10 MG/ML INJ IV ONE (09:10)
--- NOTE | 2016-12-10 10:35 | PDOC PROGRESS REPORT ---
Subjective Progress Note for:: 12/10/16 Subjective:: Patient complaining of pain right leg. Physical Exam Vital Signs: Temp Pulse Resp BP Pulse Ox 98.1 F 85 20 121/84 100 12/10/16 08:04 12/10/16 08:04 12/10/16 08:04 12/10/16 08:04 12/10/16 08:04 Intake & Output 12/09/16 12/10/16 12/11/16 06:59 06:59 06:59 Intake Total 3884 5640 Output Total 1200 4900 Balance 2684 740 Weight 48.1 kg 48.1 kg General appearance: PRESENT: mild distress Extremities exam: PRESENT: other - Right leg examined. She is unable to extend the leg completely. Complete dressing removed. Flaps looked excellent. No foul smell or drainage. Dressing reapplied Results Laboratory Results: 12/07/16 20:00 12/09/16 22:10 12/09/16 22:10 Sodium 136.2 L Potassium 3.9 Chloride 106 Carbon Dioxide 25 Anion Gap 5 BUN 14 Creatinine 0.57 Est GFR ( Amer) > 60 Est GFR (Non-Af Amer) > 60 Glucose 98 Calcium 8.3 L 12/04/16 21:32 Blood Blood Culture - Final NO GROWTH IN 5 DAYS 12/05/16 00:30 Leg - Not Specified Gram Stain - Final 12/05/16 00:30 Leg - Not Specified Wound Culture - Final Skin Camlile Impressions: Chest X-Ray 12/04/16 00:00 IMPRESSION: SATISFACTORY PLACEMENT RIGHT IJ VENOUS CATHETER WITHOUT COMPLICATION. OTHERWISE UNREMARKABLE CHEST RADIOGRAPH. Assessment & Plan - Diagnosis (1) Osteomyelitis of right leg Is this a current diagnosis for this admission?: YesPlan: Patient is one day status post right [id number] amputation, with primary stump closure. She is doing well and has no postoperative complications. Plan: 1. Physical therapy therapy consultation, and evaluation with since on stump extension, and ambulating with walker 2. Patient can return to also surgical clinic in approximately 1-2 weeks stump check. I would suggest changing the stump dressing every 48 hours with Xeroform , 4 x 4's Kerlix and Tanner wrap. (2) Chronic wound of extremity Is this a current diagnosis for this admission?: Yes
[2016-12-10] MEDS: DULOXETINE HCL 30 MG CAPSULE.DR PO SCH (10:53)
[2016-12-10] MEDS: FOLIC ACID 1 MG TABLET PO SCH (10:54)
[2016-12-10] MEDS: LOSARTAN POTASSIUM 50 MG TABLET PO SCH (10:54)
[2016-12-10] MEDS: THIAMINE HCL 100 MG TABLET PO SCH (10:54)
[2016-12-10] MEDS: CHOLECALCIFEROL (D3) 1,000 UNIT TABLET PO SCH (10:54)
[2016-12-10] MEDS: ASCORBIC ACID 500 MG TABLET PO SCH ×2 (10:54→17:25)
[2016-12-10] MEDS: IRON POLYSACCHARIDES COMPLEX 150 MG CAPSULE PO SCH (10:54)
[2016-12-10] MEDS: DOCUSATE SODIUM 100 MG CAPSULE PO SCH ×2 (10:54→17:25)
[2016-12-10] MEDS: MAGNESIUM HYDROXIDE SUSP 30 ML UDCUP PO SCH (10:55)
[2016-12-10] MEDS: LEVOFLOXACIN 750 MG/D5W RTU 150 ML IV SCH (10:55)
--- NOTE | 2016-12-10 15:04 | PDOC PROGRESS REPORT ---
Subjective Progress Note for:: 12/10/16 Subjective:: The patient was seen earlier today on rounds in conjunction with the surgicalist. The patient denies any nausea, vomiting, diarrhea, shortness of breath, dizziness, chest pain, heart palpitations, fevers, or chills. The patient has remained afebrile. Blood pressures have been in a good range. When prompted the patient voices no other concerns at this time. Review of systems: The rest of the review of systems is negative. Physical Exam Vital Signs: Temp Pulse Resp BP Pulse Ox 98.0 F 97 22 H 137/93 H 100 12/10/16 12:14 12/10/16 12:14 12/10/16 12:14 12/10/16 12:14 12/10/16 12:14 Intake & Output 12/08/16 12/09/16 12/10/16 23:59 23:59 23:59 Intake Total 3931 4777 2390 Output Total 1200 4700 200 Balance 2731 77 2190 Weight 48.3 kg 48.1 kg 48.1 kg General appearance: PRESENT: no acute distress, disheveled, thin. ABSENT: well- nourished Head exam: PRESENT: atraumatic, normocephalic Eye exam: PRESENT: conjunctiva pale, EOMI, PERRLA. ABSENT: periorbital swelling , scleral icterus Mouth exam: PRESENT: moist, tongue midline Neck exam: ABSENT: carotid bruit, JVD, lymphadenopathy, thyromegaly, tracheal deviation Respiratory exam: PRESENT: decreased breath sounds, symmetrical, unlabored. ABSENT: tachypnea, wheezes Cardiovascular exam: PRESENT: RRR GI/Abdominal exam: PRESENT: firm, normal bowel sounds, soft. ABSENT: guarding, mass Rectal exam: PRESENT: deferred Extremities exam: ABSENT: calf tenderness, clubbing, pedal edema Neurological exam: PRESENT: alert, awake, oriented to person, oriented to place , oriented to time, oriented to situation. ABSENT: CN II-XII grossly intact, motor sensory deficit Psychiatric exam: PRESENT: appropriate affect, unusual affect - Really pleasant considering the circumstances. ABSENT: homicidal ideation, suicidal ideation Skin exam: PRESENT: dry, erythema, mottled, rash. Results Laboratory Results: 12/07/16 20:00 12/09/16 22:10 12/09/16 22:10 Sodium 136.2 L Potassium 3.9 Chloride 106 Carbon Dioxide 25 Anion Gap 5 BUN 14 Creatinine 0.57 Est GFR ( Amer) > 60 Est GFR (Non-Af Amer) > 60 Glucose 98 Calcium 8.3 L 12/04/16 21:32 Blood Blood Culture - Final NO GROWTH IN 5 DAYS Impressions: Chest X-Ray 12/04/16 00:00 IMPRESSION: SATISFACTORY PLACEMENT RIGHT IJ VENOUS CATHETER WITHOUT COMPLICATION. OTHERWISE UNREMARKABLE CHEST RADIOGRAPH. Assessment & Plan - Diagnosis (1) Osteomyelitis of right leg Is this a current diagnosis for this admission?: YesPlan: The patient is status post BKA of the right lower extremity. The site is clean. (2) Crack cocaine use Is this a current diagnosis for this admission?: YesPlan: Positive on admission (3) Tobacco abuse Is this a current diagnosis for this admission?: Yes (4) Alcohol use Is this a current diagnosis for this admission?: Yes (5) Protein-calorie malnutrition, moderate Is this a current diagnosis for this admission?: Yes (6) Anemia of chronic disease Is this a current diagnosis for this admission?: YesPlan: Will continue to supplement (7) Vasculitis Is this a current diagnosis for this admission?: YesPlan: 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 (8) Atopic dermatitis, unspecified Qualifiers: Atopic dermatitis type: unspecified Qualified Code(s): L20.9 - Atopic dermatitis, unspecified Is this a current diagnosis for this admission?: Yes (9) Essential hypertension Is this a current diagnosis for this admission?: Yes (10) Gastroesophageal reflux disease Qualifiers: Esophagitis presence: without esophagitis Qualified Code(s): K21.9 - Gastro-esophageal reflux disease without esophagitis Is this a current diagnosis for this admission?: Yes (11) Hypokalemia Is this a current diagnosis for this admission?: YesPlan: Resolved (12) SLE (systemic lupus erythematosus) Qualifiers: Systemic lupus erythematosus type: unspecified Systemic lupus erythematosus organ involvement: unspecified Qualified Code(s): M32.9 - Systemic lupus erythematosus, unspecified - Time Time Spent with patient: 25-34 minutes Medications reviewed and adjusted accordingly: Yes
[2016-12-11] MEDS: OXYCODONE HCL IR 5 MG TABLET PO PRN ×4 (04:21→17:17)
[2016-12-11] MEDS: HYDRALAZINE HCL 50 MG TABLET PO SCH ×3 (05:08→21:25)
[2016-12-11] MEDS: KETOROLAC TROMETHAMINE INJ/PF 30 MG/1 ML SDV IV PRN ×3 (05:08→21:25)
[2016-12-11] MEDS: HEPARIN SOD (PORCINE) 5,000 UNIT/ML 1 ML SYRINGE SUBCUT SCH ×3 (05:09→21:25)
[2016-12-11] MEDS: OXYCODONE-ACETAMINOPHEN 5-325 MG TABLET PO PRN ×4 (05:21→20:09)
[2016-12-11 05:49] LABS: HEMATOCRIT 25.6 % (36.0-47.0); HEMOGLOBIN 8.7 g/dL (12.0-15.5); HGB HCT DIFFERENCE 0.5; MEAN CORPUSCULAR HEMOGLOBIN 27.4 pg (27.0-33.4); MEAN CORPUSCULAR HGB CONC 33.9 g/dL (32.0-36.0); MEAN CORPUSCULAR VOLUME 81 fl (80-97); RED BLOOD COUNT 3.17 10^6/uL (3.72-5.28); RED CELL DISTRIBUTION WIDTH 17.1 % (11.5-14.0); WHITE BLOOD COUNT 5.9 10^3/uL (4.0-10.5)
[2016-12-11 06:06] LABS: ANION GAP 7 (5-19); BLOOD UREA NITROGEN 16 mg/dL (7-20); CALCIUM 8.9 mg/dL (8.4-10.2); CARBON DIOXIDE 25 mmol/L (22-30); CHLORIDE 104 mmol/L (98-107); CREATININE RESULT 0.52 mg/dL (0.52-1.25); GLUCOSE 97 mg/dL (75-110); MAGNESIUM 1.6 mg/dL (1.6-2.3); POTASSIUM 4.1 mmol/L (3.6-5.0); SODIUM 136.2 mmol/L (137-145)
[2016-12-11] MEDS: FOLIC ACID 1 MG TABLET PO SCH (09:00)
[2016-12-11] MEDS: THIAMINE HCL 100 MG TABLET PO SCH (09:00)
[2016-12-11] MEDS: IRON POLYSACCHARIDES COMPLEX 150 MG CAPSULE PO SCH (09:00)
[2016-12-11] MEDS: LEVOFLOXACIN 750 MG/D5W RTU 150 ML IV SCH (09:01)
[2016-12-11] MEDS: CHOLECALCIFEROL (D3) 1,000 UNIT TABLET PO SCH (09:01)
[2016-12-11] MEDS: ASCORBIC ACID 500 MG TABLET PO SCH ×2 (09:01→17:17)
[2016-12-11] MEDS: DOCUSATE SODIUM 100 MG CAPSULE PO SCH ×2 (09:01→17:17)
[2016-12-11] MEDS: LOSARTAN POTASSIUM 50 MG TABLET PO SCH (09:01)
[2016-12-11] MEDS: MAGNESIUM HYDROXIDE SUSP 30 ML UDCUP PO SCH (09:01)
[2016-12-11] MEDS: DULOXETINE HCL 30 MG CAPSULE.DR PO SCH (09:01)
--- NOTE | 2016-12-11 16:16 | PDOC PROGRESS REPORT ---
Subjective Progress Note for:: 12/11/16 Subjective:: The patient was seen earlier today on rounds. The patient denies any nausea, vomiting, diarrhea, shortness of breath, dizziness, chest pain, heart palpitations, fevers, or chills. The patient has remained afebrile. Blood pressures have been in a good range. The patient has been participating in therapies. The patient has been able to pivot bedside commode. When prompted the patient voices no other concerns at this time. Review of systems: The rest of the review of systems is negative. Physical Exam Vital Signs: Temp Pulse Resp BP Pulse Ox 97.4 F 85 16 121/67 100 12/11/16 15:34 12/11/16 15:34 12/11/16 15:34 12/11/16 15:34 12/11/16 15:34 Intake & Output 12/09/16 12/10/16 12/11/16 23:59 23:59 23:59 Intake Total 4777 3500 300 Output Total 4700 1700 900 Balance 77 1800 -600 Weight 48.1 kg 48.1 kg 48.1 kg General appearance: PRESENT: no acute distress, disheveled, thin. ABSENT: well- nourished Head exam: PRESENT: atraumatic, normocephalic Eye exam: PRESENT: conjunctiva pale, EOMI, PERRLA. ABSENT: periorbital swelling , scleral icterus Mouth exam: PRESENT: moist, tongue midline Neck exam: ABSENT: carotid bruit, JVD, lymphadenopathy, thyromegaly, tracheal deviation Respiratory exam: PRESENT: decreased breath sounds, symmetrical, unlabored. ABSENT: tachypnea, wheezes Cardiovascular exam: PRESENT: RRR GI/Abdominal exam: PRESENT: firm, normal bowel sounds, soft. ABSENT: guarding, mass Rectal exam: PRESENT: deferred Extremities exam: ABSENT: calf tenderness, clubbing, pedal edema Neurological exam: PRESENT: alert, awake, oriented to person, oriented to place , oriented to time, oriented to situation. ABSENT: CN II-XII grossly intact, motor sensory deficit Psychiatric exam: PRESENT: appropriate affect, unusual affect - Really pleasant considering the circumstances. ABSENT: homicidal ideation, suicidal ideation Skin exam: PRESENT: dry, erythema, mottled, rash. Results Laboratory Results: 12/11/16 05:30 12/11/16 05:30 12/11/16 12/11/16 05:30 05:30 WBC 5.9 RBC 3.17 L Hgb 8.7 L Hct 25.6 L MCV 81 MCH 27.4 MCHC 33.9 RDW 17.1 H Plt Count 217 Sodium 136.2 L Potassium 4.1 Chloride 104 Carbon Dioxide 25 Anion Gap 7 BUN 16 Creatinine 0.52 Est GFR ( Amer) > 60 Est GFR (Non-Af Amer) > 60 Glucose 97 Calcium 8.9 Magnesium 1.6 Impressions: Chest X-Ray 12/04/16 00:00 IMPRESSION: SATISFACTORY PLACEMENT RIGHT IJ VENOUS CATHETER WITHOUT COMPLICATION. OTHERWISE UNREMARKABLE CHEST RADIOGRAPH. Assessment & Plan - Diagnosis (1) Osteomyelitis of right leg Is this a current diagnosis for this admission?: YesPlan: The patient is status post BKA of the right lower extremity. The site is clean. (2) Crack cocaine use Is this a current diagnosis for this admission?: YesPlan: Positive on admission (3) Tobacco abuse Is this a current diagnosis for this admission?: Yes (4) Alcohol use Is this a current diagnosis for this admission?: Yes (5) Protein-calorie malnutrition, moderate Is this a current diagnosis for this admission?: Yes (6) Anemia of chronic disease Is this a current diagnosis for this admission?: YesPlan: Will continue to supplement (7) Vasculitis Is this a current diagnosis for this admission?: YesPlan: 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 (8) Atopic dermatitis, unspecified Qualifiers: Atopic dermatitis type: unspecified Qualified Code(s): L20.9 - Atopic dermatitis, unspecified Is this a current diagnosis for this admission?: Yes (9) Essential hypertension Is this a current diagnosis for this admission?: Yes (10) Gastroesophageal reflux disease Qualifiers: Esophagitis presence: without esophagitis Qualified Code(s): K21.9 - Gastro-esophageal reflux disease without esophagitis Is this a current diagnosis for this admission?: Yes (11) Hypokalemia Is this a current diagnosis for this admission?: YesPlan: Resolved (12) SLE (systemic lupus erythematosus) Qualifiers: Systemic lupus erythematosus type: unspecified Systemic lupus erythematosus organ involvement: unspecified Qualified Code(s): M32.9 - Systemic lupus erythematosus, unspecified - Time Time Spent with patient: 25-34 minutes Medications reviewed and adjusted accordingly: Yes Anticipated discharge: Acute Rehab Within: when bed available
[2016-12-12] MEDS ORDERED: ACETAMINOPHEN 325 MG TABLET PO PRN (01:16)
[2016-12-12] MEDS ORDERED: OXYCODONE HCL IR 5 MG TABLET PO PRN ×2 (01:16→01:17)
[2016-12-12] MEDS ORDERED: OXYCODONE HCL IR 5 MG TABLET ONE (01:24)
[2016-12-12] MEDS: HYDRALAZINE HCL 50 MG TABLET PO SCH ×3 (05:24→22:00)
[2016-12-12] MEDS: HEPARIN SOD (PORCINE) 5,000 UNIT/ML 1 ML SYRINGE SUBCUT SCH ×3 (05:24→22:00)
--- NOTE | 2016-12-12 09:03 | PDOC PROGRESS REPORT ---
Subjective Progress Note for:: 12/12/16 Subjective:: The patient was seen earlier today on rounds. The patient denies any nausea, vomiting, diarrhea, shortness of breath, dizziness, chest pain, heart palpitations, fevers, or chills. The patient has remained afebrile. Blood pressures have been in a good range. The patient has been participating in therapies. The patient has been able to pivot bedside commode. When prompted the patient voices no other concerns at this time. Review of systems: The rest of the review of systems is negative. Physical Exam Vital Signs: Temp Pulse Resp BP Pulse Ox 97.4 F 88 18 116/71 98 12/12/16 07:43 12/12/16 07:43 12/12/16 07:43 12/12/16 07:43 12/12/16 07:43 Intake & Output 12/10/16 12/11/16 12/12/16 23:59 23:59 23:59 Intake Total 3500 930 385 Output Total 0098 374 3442 Balance 1800 30 -715 Weight 48.1 kg 48.1 kg General appearance: PRESENT: no acute distress, disheveled, thin. ABSENT: well- nourished Head exam: PRESENT: atraumatic, normocephalic Eye exam: PRESENT: conjunctiva pale, EOMI, PERRLA. ABSENT: periorbital swelling , scleral icterus Mouth exam: PRESENT: moist, tongue midline Neck exam: ABSENT: carotid bruit, JVD, lymphadenopathy, thyromegaly, tracheal deviation Respiratory exam: PRESENT: decreased breath sounds, symmetrical, unlabored. ABSENT: tachypnea, wheezes Cardiovascular exam: PRESENT: RRR GI/Abdominal exam: PRESENT: firm, normal bowel sounds, soft. ABSENT: guarding, mass Rectal exam: PRESENT: deferred Extremities exam: ABSENT: calf tenderness, clubbing, pedal edema Neurological exam: PRESENT: alert, awake, oriented to person, oriented to place , oriented to time, oriented to situation. ABSENT: CN II-XII grossly intact, motor sensory deficit Psychiatric exam: PRESENT: appropriate affect, unusual affect - Really pleasant considering the circumstances. ABSENT: homicidal ideation, suicidal ideation Skin exam: PRESENT: dry, erythema, mottled, rash. Results Laboratory Results: 12/11/16 05:30 12/11/16 05:30 Impressions: Chest X-Ray 12/04/16 00:00 IMPRESSION: SATISFACTORY PLACEMENT RIGHT IJ VENOUS CATHETER WITHOUT COMPLICATION. OTHERWISE UNREMARKABLE CHEST RADIOGRAPH. Assessment & Plan - Diagnosis (1) Osteomyelitis of right leg Is this a current diagnosis for this admission?: YesPlan: The patient is status post BKA of the right lower extremity. The site is clean. (2) Crack cocaine use Is this a current diagnosis for this admission?: YesPlan: Positive on admission (3) Tobacco abuse Is this a current diagnosis for this admission?: Yes (4) Alcohol use Is this a current diagnosis for this admission?: Yes (5) Protein-calorie malnutrition, moderate Is this a current diagnosis for this admission?: Yes (6) Anemia of chronic disease Is this a current diagnosis for this admission?: YesPlan: Will continue to supplement (7) Vasculitis Is this a current diagnosis for this admission?: YesPlan: 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 (8) Atopic dermatitis, unspecified Qualifiers: Atopic dermatitis type: unspecified Qualified Code(s): L20.9 - Atopic dermatitis, unspecified Is this a current diagnosis for this admission?: Yes (9) Essential hypertension Is this a current diagnosis for this admission?: Yes (10) Gastroesophageal reflux disease Qualifiers: Esophagitis presence: without esophagitis Qualified Code(s): K21.9 - Gastro-esophageal reflux disease without esophagitis Is this a current diagnosis for this admission?: Yes (11) Hypokalemia Is this a current diagnosis for this admission?: YesPlan: Resolved (12) SLE (systemic lupus erythematosus) Qualifiers: Systemic lupus erythematosus type: unspecified Systemic lupus erythematosus organ involvement: unspecified Qualified Code(s): M32.9 - Systemic lupus erythematosus, unspecified - Time Time Spent with patient: 25-34 minutes Medications reviewed and adjusted accordingly: Yes Anticipated discharge: Acute Rehab Within: when bed available
[2016-12-12] MEDS: KETOROLAC TROMETHAMINE INJ/PF 30 MG/1 ML SDV IV PRN ×2 (10:20→17:40)
[2016-12-12] MEDS: DULOXETINE HCL 30 MG CAPSULE.DR PO SCH (10:20)
[2016-12-12] MEDS: LEVOFLOXACIN 750 MG TABLET PO SCH (10:20)
[2016-12-12] MEDS: ASCORBIC ACID 500 MG TABLET PO SCH ×2 (10:20→17:40)
[2016-12-12] MEDS: THIAMINE HCL 100 MG TABLET PO SCH (10:20)
[2016-12-12] MEDS: IRON POLYSACCHARIDES COMPLEX 150 MG CAPSULE PO SCH (10:20)
[2016-12-12] MEDS: LOSARTAN POTASSIUM 50 MG TABLET PO SCH (10:21)
[2016-12-12] MEDS: DOCUSATE SODIUM 100 MG CAPSULE PO SCH ×2 (10:21→17:40)
[2016-12-12] MEDS: MAGNESIUM HYDROXIDE SUSP 30 ML UDCUP PO SCH (10:21)
[2016-12-12] MEDS: FOLIC ACID 1 MG TABLET PO SCH (10:21)
[2016-12-12] MEDS: CHOLECALCIFEROL (D3) 1,000 UNIT TABLET PO SCH (10:21)
[2016-12-12] MEDS ORDERED: FOLIC ACID 1 MG TABLET PO ONE (11:00)
[2016-12-12] MEDS ORDERED: LANSOPRAZOLE 30 MG TAB.RAP.DR PO ONE (12:00)
[2016-12-12] MEDS: OXYCODONE HCL IR 5 MG TABLET PO PRN ×2 (12:18→22:00)
[2016-12-12] MEDS: ZOLPIDEM TARTRATE 5 MG TABLET PO PRN (21:59)
[2016-12-13] MEDS: OXYCODONE HCL IR 5 MG TABLET PO PRN ×3 (05:12→18:33)
[2016-12-13] MEDS: KETOROLAC TROMETHAMINE INJ/PF 30 MG/1 ML SDV IV PRN (06:06)
[2016-12-13] MEDS: HEPARIN SOD (PORCINE) 5,000 UNIT/ML 1 ML SYRINGE SUBCUT SCH ×3 (06:06→22:26)
[2016-12-13] MEDS: HYDRALAZINE HCL 50 MG TABLET PO SCH ×3 (06:06→22:26)
[2016-12-13] MEDS: LANSOPRAZOLE 30 MG TAB.RAP.DR PO SCH (06:06)
[2016-12-13 06:43] LABS: HEMATOCRIT 25.3 % (36.0-47.0); HEMOGLOBIN 8.4 g/dL (12.0-15.5); HGB HCT DIFFERENCE -0.1; MEAN CORPUSCULAR HEMOGLOBIN 27.1 pg (27.0-33.4); MEAN CORPUSCULAR HGB CONC 33.2 g/dL (32.0-36.0); MEAN CORPUSCULAR VOLUME 82 fl (80-97); RED CELL DISTRIBUTION WIDTH 16.7 % (11.5-14.0); WHITE BLOOD COUNT 6.9 10^3/uL (4.0-10.5)
[2016-12-13 06:56] LABS: ANION GAP 7 (5-19); BLOOD UREA NITROGEN 18 mg/dL (7-20); CALCIUM 8.6 mg/dL (8.4-10.2); CARBON DIOXIDE 28 mmol/L (22-30); CHLORIDE 103 mmol/L (98-107); CREATININE RESULT 0.58 mg/dL (0.52-1.25); GLUCOSE 89 mg/dL (75-110); MAGNESIUM 1.7 mg/dL (1.6-2.3); POTASSIUM 4.1 mmol/L (3.6-5.0)
[2016-12-13] MEDS ORDERED: HYDROXYZINE HCL 10 MG TABLET PO PRN (08:54)
--- NOTE | 2016-12-13 08:57 | PDOC PROGRESS REPORT ---
Subjective Progress Note for:: 12/13/16 Subjective:: The patient was seen earlier today on rounds. The patient denies any nausea, vomiting, diarrhea, shortness of breath, dizziness, chest pain, heart palpitations, fevers, or chills. The patient has remained afebrile. Blood pressures have been in a good range. The patient has been participating in therapies. The patient has been able to pivot bedside commode. When prompted the patient voices no other concerns at this time. Will discontinue central line. Review of systems: The rest of the review of systems is negative. Physical Exam Vital Signs: Temp Pulse Resp BP Pulse Ox 98.6 F 100 17 139/87 H 100 12/13/16 00:06 12/13/16 00:06 12/13/16 00:06 12/13/16 00:06 12/13/16 00:06 Intake & Output 12/11/16 12/12/16 12/13/16 23:59 23:59 23:59 Intake Total 930 1571 Output Total 900 1100 Balance 30 471 Weight 48.1 kg General appearance: PRESENT: no acute distress, disheveled, thin. ABSENT: well- nourished Head exam: PRESENT: atraumatic, normocephalic Eye exam: PRESENT: conjunctiva pale, EOMI, PERRLA. ABSENT: periorbital swelling , scleral icterus Mouth exam: PRESENT: moist, tongue midline Neck exam: ABSENT: carotid bruit, JVD, lymphadenopathy, thyromegaly, tracheal deviation Respiratory exam: PRESENT: decreased breath sounds, symmetrical, unlabored. ABSENT: tachypnea, wheezes Cardiovascular exam: PRESENT: RRR GI/Abdominal exam: PRESENT: firm, normal bowel sounds, soft. ABSENT: guarding, mass Rectal exam: PRESENT: deferred Extremities exam: ABSENT: calf tenderness, clubbing, pedal edema Neurological exam: PRESENT: alert, awake, oriented to person, oriented to place , oriented to time, oriented to situation. ABSENT: CN II-XII grossly intact, motor sensory deficit Psychiatric exam: PRESENT: appropriate affect, unusual affect - Really pleasant considering the circumstances. ABSENT: homicidal ideation, suicidal ideation Skin exam: PRESENT: dry, erythema, mottled, rash. Results Laboratory Results: 12/13/16 06:00 12/13/16 06:00 12/13/16 12/13/16 06:00 06:00 WBC 6.9 RBC 3.10 L Hgb 8.4 L Hct 25.3 L MCV 82 MCH 27.1 MCHC 33.2 RDW 16.7 H Plt Count 229 Sodium 138.0 Potassium 4.1 Chloride 103 Carbon Dioxide 28 Anion Gap 7 BUN 18 Creatinine 0.58 Est GFR ( Amer) > 60 Est GFR (Non-Af Amer) > 60 Glucose 89 Calcium 8.6 Magnesium 1.7 Impressions: Chest X-Ray 12/04/16 00:00 IMPRESSION: SATISFACTORY PLACEMENT RIGHT IJ VENOUS CATHETER WITHOUT COMPLICATION. OTHERWISE UNREMARKABLE CHEST RADIOGRAPH. Assessment & Plan - Diagnosis (1) Osteomyelitis of right leg Is this a current diagnosis for this admission?: YesPlan: The patient is status post BKA of the right lower extremity. The site is clean. (2) Crack cocaine use Is this a current diagnosis for this admission?: YesPlan: Positive on admission (3) Tobacco abuse Is this a current diagnosis for this admission?: Yes (4) Alcohol use Is this a current diagnosis for this admission?: Yes (5) Protein-calorie malnutrition, moderate Is this a current diagnosis for this admission?: Yes (6) Anemia of chronic disease Is this a current diagnosis for this admission?: YesPlan: Will continue to supplement (7) Vasculitis Is this a current diagnosis for this admission?: YesPlan: 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 (8) Atopic dermatitis, unspecified Qualifiers: Atopic dermatitis type: unspecified Qualified Code(s): L20.9 - Atopic dermatitis, unspecified Is this a current diagnosis for this admission?: Yes (9) Essential hypertension Is this a current diagnosis for this admission?: Yes (10) Gastroesophageal reflux disease Qualifiers: Esophagitis presence: without esophagitis Qualified Code(s): K21.9 - Gastro-esophageal reflux disease without esophagitis Is this a current diagnosis for this admission?: Yes (11) Hypokalemia Is this a current diagnosis for this admission?: YesPlan: Resolved (12) SLE (systemic lupus erythematosus) Qualifiers: Systemic lupus erythematosus type: unspecified Systemic lupus erythematosus organ involvement: unspecified Qualified Code(s): M32.9 - Systemic lupus erythematosus, unspecified - Time Time Spent with patient: 25-34 minutes Medications reviewed and adjusted accordingly: Yes Anticipated discharge: Acute Rehab Within: when bed available
[2016-12-13] MEDS: ASCORBIC ACID 500 MG TABLET PO SCH ×2 (09:23→17:02)
[2016-12-13] MEDS: FOLIC ACID 1 MG TABLET PO SCH (09:23)
[2016-12-13] MEDS: DOCUSATE SODIUM 100 MG CAPSULE PO SCH ×2 (09:23→17:02)
[2016-12-13] MEDS: IRON POLYSACCHARIDES COMPLEX 150 MG CAPSULE PO SCH (09:24)
[2016-12-13] MEDS: DULOXETINE HCL 30 MG CAPSULE.DR PO SCH (09:24)
[2016-12-13] MEDS: CHOLECALCIFEROL (D3) 1,000 UNIT TABLET PO SCH (09:24)
[2016-12-13] MEDS: LEVOFLOXACIN 750 MG TABLET PO SCH (09:24)
[2016-12-13] MEDS: LOSARTAN POTASSIUM 50 MG TABLET PO SCH (09:25)
[2016-12-13] MEDS: MAGNESIUM HYDROXIDE SUSP 30 ML UDCUP PO SCH (09:26)
[2016-12-13] MEDS: THIAMINE HCL 100 MG TABLET PO SCH (09:26)
[2016-12-13] MEDS ORDERED: ACETAMINOPHEN 325 MG TABLET PO PRN (09:34)
[2016-12-13] MEDS: ZOLPIDEM TARTRATE 5 MG TABLET PO PRN (22:25)
[2016-12-13] MEDS: IBUPROFEN 600 MG TABLET PO PRN (22:25)
[2016-12-14] MEDS: OXYCODONE HCL IR 5 MG TABLET PO PRN ×3 (05:19→20:17)
[2016-12-14] MEDS: HYDRALAZINE HCL 50 MG TABLET PO SCH ×3 (05:19→21:55)
[2016-12-14] MEDS: LANSOPRAZOLE 30 MG TAB.RAP.DR PO SCH (05:19)
[2016-12-14] MEDS: HEPARIN SOD (PORCINE) 5,000 UNIT/ML 1 ML SYRINGE SUBCUT SCH ×3 (05:19→21:55)
[2016-12-14] MEDS: THIAMINE HCL 100 MG TABLET PO SCH (09:15)
[2016-12-14] MEDS: ASCORBIC ACID 500 MG TABLET PO SCH ×2 (09:15→18:08)
[2016-12-14] MEDS: LEVOFLOXACIN 750 MG TABLET PO SCH (09:15)
[2016-12-14] MEDS: DULOXETINE HCL 30 MG CAPSULE.DR PO SCH (09:15)
[2016-12-14] MEDS: IRON POLYSACCHARIDES COMPLEX 150 MG CAPSULE PO SCH (09:15)
[2016-12-14] MEDS: CHOLECALCIFEROL (D3) 1,000 UNIT TABLET PO SCH (09:15)
[2016-12-14] MEDS: DOCUSATE SODIUM 100 MG CAPSULE PO SCH ×2 (09:15→18:08)
[2016-12-14] MEDS: FOLIC ACID 1 MG TABLET PO SCH (09:16)
[2016-12-14] MEDS: LOSARTAN POTASSIUM 50 MG TABLET PO SCH (09:19)
[2016-12-14] MEDS: MAGNESIUM HYDROXIDE SUSP 30 ML UDCUP PO SCH (09:19)
--- NOTE | 2016-12-14 09:37 | PDOC PROGRESS REPORT ---
Subjective Progress Note for:: 12/14/16 Subjective:: The patient was seen earlier today on rounds. The patient denies any nausea, vomiting, diarrhea, shortness of breath, dizziness, chest pain, heart palpitations, fevers, or chills. The patient has remained afebrile. Blood pressures have been in a good range. The patient has been participating in therapies. The patient has been able to pivot bedside commode. When prompted the patient voices no other concerns at this time. The patient is in the best spirits that I have ever encountered her in. Review of systems: The rest of the review of systems is negative. Physical Exam Vital Signs: Temp Pulse Resp BP Pulse Ox 98.4 F 85 15 108/60 99 12/14/16 07:27 12/14/16 07:27 12/14/16 07:27 12/14/16 07:27 12/14/16 07:27 Intake & Output 12/12/16 12/13/16 12/14/16 23:59 23:59 23:59 Intake Total 1571 1296 Output Total 1100 600 Balance 471 696 General appearance: PRESENT: no acute distress, disheveled, thin. ABSENT: well- nourished Head exam: PRESENT: atraumatic, normocephalic Eye exam: PRESENT: conjunctiva pale, EOMI, PERRLA. ABSENT: periorbital swelling , scleral icterus Mouth exam: PRESENT: moist, tongue midline Neck exam: ABSENT: carotid bruit, JVD, lymphadenopathy, thyromegaly, tracheal deviation Respiratory exam: PRESENT: decreased breath sounds, symmetrical, unlabored. ABSENT: tachypnea, wheezes Cardiovascular exam: PRESENT: RRR GI/Abdominal exam: PRESENT: firm, normal bowel sounds, soft. ABSENT: guarding, mass Rectal exam: PRESENT: deferred Extremities exam: ABSENT: calf tenderness, clubbing, pedal edema Neurological exam: PRESENT: alert, awake, oriented to person, oriented to place , oriented to time, oriented to situation. ABSENT: CN II-XII grossly intact, motor sensory deficit Psychiatric exam: PRESENT: appropriate affect, unusual affect - Really pleasant considering the circumstances. ABSENT: homicidal ideation, suicidal ideation Skin exam: PRESENT: dry, erythema, mottled, rash. Results Laboratory Results: 12/13/16 06:00 12/13/16 06:00 Impressions: Chest X-Ray 12/04/16 00:00 IMPRESSION: SATISFACTORY PLACEMENT RIGHT IJ VENOUS CATHETER WITHOUT COMPLICATION. OTHERWISE UNREMARKABLE CHEST RADIOGRAPH. Assessment & Plan - Diagnosis (1) Osteomyelitis of right leg Is this a current diagnosis for this admission?: YesPlan: The patient is status post BKA of the right lower extremity. The site is clean. (2) Anemia of chronic disease Is this a current diagnosis for this admission?: YesPlan: Will continue to supplement. Hgb slowly drifts down. (3) Atopic dermatitis, unspecified Qualifiers: Atopic dermatitis type: unspecified Qualified Code(s): L20.9 - Atopic dermatitis, unspecified Is this a current diagnosis for this admission?: Yes (4) Essential hypertension Is this a current diagnosis for this admission?: YesPlan: Will continue home meds. Well controlled. (5) Crack cocaine use Is this a current diagnosis for this admission?: YesPlan: Positive on admission (6) Tobacco abuse Is this a current diagnosis for this admission?: Yes (7) Alcohol use Is this a current diagnosis for this admission?: Yes (8) Protein-calorie malnutrition, moderate Is this a current diagnosis for this admission?: Yes (9) Vasculitis Is this a current diagnosis for this admission?: Yes (10) Gastroesophageal reflux disease Qualifiers: Esophagitis presence: without esophagitis Qualified Code(s): K21.9 - Gastro-esophageal reflux disease without esophagitis Is this a current diagnosis for this admission?: Yes (11) Hypokalemia Is this a current diagnosis for this admission?: YesPlan: Resolved (12) SLE (systemic lupus erythematosus) Qualifiers: Systemic lupus erythematosus type: unspecified Systemic lupus erythematosus organ involvement: unspecified Qualified Code(s): M32.9 - Systemic lupus erythematosus, unspecified Is this a current diagnosis for this admission?: Yes - Time Time Spent with patient: 25-34 minutes Medications reviewed and adjusted accordingly: Yes Anticipated discharge: Acute Rehab Within: when bed available
[2016-12-14] MEDS: IBUPROFEN 600 MG TABLET PO PRN ×2 (09:38→18:11)
[2016-12-15] MEDS: IBUPROFEN 600 MG TABLET PO PRN ×2 (04:08→13:58)
[2016-12-15] MEDS: HYDRALAZINE HCL 50 MG TABLET PO SCH ×2 (05:26→13:59)
[2016-12-15] MEDS: LANSOPRAZOLE 30 MG TAB.RAP.DR PO SCH (05:34)
[2016-12-15] MEDS: HEPARIN SOD (PORCINE) 5,000 UNIT/ML 1 ML SYRINGE SUBCUT SCH ×2 (05:34→14:00)
[2016-12-15] MEDS: CHOLECALCIFEROL (D3) 1,000 UNIT TABLET PO SCH (10:45)
[2016-12-15] MEDS: ASCORBIC ACID 500 MG TABLET PO SCH (10:45)
[2016-12-15] MEDS: DULOXETINE HCL 30 MG CAPSULE.DR PO SCH (10:45)
[2016-12-15] MEDS: LEVOFLOXACIN 750 MG TABLET PO SCH (10:46)
[2016-12-15] MEDS: LOSARTAN POTASSIUM 50 MG TABLET PO SCH (10:46)
[2016-12-15] MEDS: FOLIC ACID 1 MG TABLET PO SCH (10:47)
[2016-12-15] MEDS: THIAMINE HCL 100 MG TABLET PO SCH (10:47)
[2016-12-15] MEDS: MAGNESIUM HYDROXIDE SUSP 30 ML UDCUP PO SCH (10:47)
[2016-12-15] MEDS: DOCUSATE SODIUM 100 MG CAPSULE PO SCH (10:47)
[2016-12-15] MEDS: IRON POLYSACCHARIDES COMPLEX 150 MG CAPSULE PO SCH (10:47)
[2016-12-15] MEDS: OXYCODONE HCL IR 5 MG TABLET PO PRN (10:55)
[2016-12-15 14:45] VITALS: BP 115/67
--- NOTE | 2016-12-15 15:54 | PDOC DISCHARGE SUMMARY ---
General - Admit/Disc Date/PCP Admission Date/Primary Care Provider: 12/04/16 20:20 Discharge Date: 12/15/16 - Discharge Diagnosis (1) Bilateral leg ulcer Is this a current diagnosis for this admission?: YesSummary: Resolved. Now right BKA (2) Crack cocaine use Is this a current diagnosis for this admission?: YesSummary: Counseled on the need to stop (3) Protein-calorie malnutrition, moderate Is this a current diagnosis for this admission?: YesSummary: Encouraged good food choices (4) Anemia of chronic disease Is this a current diagnosis for this admission?: YesSummary: Continue iron therapy (5) Essential hypertension Is this a current diagnosis for this admission?: Yes (6) Gastroesophageal reflux disease Is this a current diagnosis for this admission?: YesSummary: Continue PPI therapy - Additional Information Resuscitation Status: Full Code Discharge Diet: Regular Discharge Activity: Activity As Tolerated, Balance Activity w/Rest, Slowly Increase Activity Home Medications: Folic Acid 1 mg PO DAILY 12/11/16 Pantoprazole Sodium [Protonix] 40 mg PO DAILY 12/11/16 Acetaminophen [Tylenol 325 mg Tablet] 650 mg PO Q4HP PRN tablet 12/15/16 Docusate Sodium [Colace 100 mg Capsule] 100 mg PO BID capsule 12/15/16 Hydralazine HCl [Apresoline 50 mg Tablet] 50 mg PO Q8 #90 tablet 12/15/16 Ibuprofen [Motrin 600 mg Tablet] 600 mg PO Q8HP PRN #40 tablet 12/15/16 Losartan Potassium [Cozaar 50 mg Tablet] 100 mg PO DAILY #30 tablet 12/15/16 Magnesium Hydroxide [Milk of Magnesia 30 ml Udcup] 30 ml PO DAILY udc 12/15/16 Oxycodone HCl [Oxy-Ir 5 mg Tablet] 5 mg PO Q6HP PRN #30 tablet 12/15/16 History of Present Illness History of Present Illness: TAYLOR MACKEY is a 41 year old female with past medical history of hypertension, lupus, vasculitis, polysubstance abuse, tobacco and chronic nonhealing right leg ulcer. Who presents to [facility]'s emergency room on 12/04 after being referred there by the wound care clinic for worsening malodorous purulent drainage from her chronic leg ulcer. His worsened over the last 2 weeks due to patient's noncompliance. Patient admits to intermittent fever, she denies fever, chest pain, or nausea and vomiting. She was referred to the hospitalist service for admission. Hospital Course Hospital Course: She was admitted to telemetry unit on the hospitalist service. She was pancultured. She was started on IV broad-spectrum antibiotics and pain medicine. General surgery was consulted for wound Care. She was taken to the operating room on 12/[address] Lee for local debridement of the wound. There is exposed tendon and bone. He discussed the options patient of continued local wound care with most likely poor outcome or a right below the knee amputation. She was taken back to the OR and 12/[address] Lee for right [id number] amputation. She did require transfusion 1 of 2 units packed blood cells on . She had physical therapy consult and and progress her activity with them. She was evaluated today for inpatient. They did not feel she required inpatient rehabilitation she could be discharged home with home physical therapy. Patient was counseled at length about her need to stay away from drugs. She states she tends to be compliant and do so. She will follow-up with Dr. Lee in the office who was further surgical care. She will follow up with [facility] for medical management. Physical Exam Vital Signs: Temp Pulse Resp BP Pulse Ox 98.4 F 84 18 115/67 100 12/15/16 14:33 12/15/16 14:33 12/15/16 14:33 12/15/16 14:33 12/15/16 14:33 Intake & Output 12/14/16 12/15/16 12/16/16 06:59 06:59 06:59 Intake Total 1296 1300 Output Total 600 900 Balance 696 400 General appearance: PRESENT: no acute distress, thin, well-developed Head exam: PRESENT: atraumatic, normocephalic Eye exam: PRESENT: conjunctiva pink, EOMI, PERRLA. ABSENT: scleral icterus Ear exam: PRESENT: normal external ear exam Mouth exam: PRESENT: moist, tongue midline Neck exam: ABSENT: carotid bruit, JVD, lymphadenopathy, thyromegaly Respiratory exam: PRESENT: clear to auscultation rei. ABSENT: rales, rhonchi, wheezes Cardiovascular exam: PRESENT: RRR. ABSENT: diastolic murmur, rubs, systolic murmur Pulses: PRESENT: normal dorsalis pedis pul Vascular exam: PRESENT: normal capillary refill GI/Abdominal exam: PRESENT: normal bowel sounds, soft. ABSENT: distended, guarding, mass, organolmegaly, rebound, tenderness Rectal exam: PRESENT: deferred Extremities exam: PRESENT: tenderness, other - right bka healing well Musculoskeletal exam: PRESENT: ambulatory Neurological exam: PRESENT: alert, awake, oriented to person, oriented to place , oriented to time, oriented to situation, CN II-XII grossly intact. ABSENT: motor sensory deficit Psychiatric exam: PRESENT: appropriate affect, normal mood. ABSENT: homicidal ideation, suicidal ideation Skin exam: PRESENT: dry, intact, warm. ABSENT: cyanosis, rash Results Laboratory Results: 12/13/16 06:00 12/13/16 06:00 Impressions: Chest X-Ray 12/04/16 00:00 IMPRESSION: SATISFACTORY PLACEMENT RIGHT IJ VENOUS CATHETER WITHOUT COMPLICATION. OTHERWISE UNREMARKABLE CHEST RADIOGRAPH. Qualifiers PATEINT BEING DISCHARGED WITH ANY OF THE FOLLOWING DIAGNOSIS?: No Plan Discharge Plan: Home with home physical therapy Time Spent: Less than 30 Minutes
== END 2016-12-15 15:37 | disposition home health service (06) | DRG 580 ==
LOC: ER 16:41 → EH 20:20 → UNDOADMIN 20:37 → EH 20:37 → 5 23:40
PROVIDERS: ADMIT Internal Medicine; ATTEND Internal Medicine
PROC: 0LBN0ZZ Excision of Right Lower Leg Tendon, Open Approach (ICD-10-PCS; 2016-12-05)
PROC: 30233N1 Transfusion of Nonautologous Red Blood Cells into Peripheral Vein, Percutaneous Approach (ICD-10-PCS; 2016-12-07)
PROC: 0Y6H0Z3 Detachment at Right Lower Leg, Low, Open Approach (ICD-10-PCS; principal; 2016-12-09 13:00)
DX: L97.919 Non-pressure chronic ulcer of unspecified part of right lower leg with unspecified severity (principal); E44.0 Moderate protein-calorie malnutrition; Z68.1 Body mass index [BMI] 19.9 or less, adult; L97.929 Non-pressure chronic ulcer of unspecified part of left lower leg with unspecified severity; K21.9 Gastro-esophageal reflux disease without esophagitis; M32.9 Systemic lupus erythematosus, unspecified; I77.6 Arteritis, unspecified; E11.22 Type 2 diabetes mellitus with diabetic chronic kidney disease; I12.9 Hypertensive chronic kidney disease with stage 1 through stage 4 chronic kidney disease, or unspecified chronic kidney disease; N18.9 Chronic kidney disease, unspecified; D63.1 Anemia in chronic kidney disease; F14.90 Cocaine use, unspecified, uncomplicated; F17.210 Nicotine dependence, cigarettes, uncomplicated; F10.20 Alcohol dependence, uncomplicated; F41.9 Anxiety disorder, unspecified; E87.6 Hypokalemia; B96.89 Other specified bacterial agents as the cause of diseases classified elsewhere; B95.2 Enterococcus as the cause of diseases classified elsewhere; L20.9 Atopic dermatitis, unspecified; Z87.891 Personal history of nicotine dependence; Z79.899 Other long term (current) drug therapy; Z59.0 Homelessness; Z88.2 Allergy status to sulfonamides; Z88.0 Allergy status to penicillin; Z88.1 Allergy status to other antibiotic agents; Z88.3 Allergy status to other anti-infective agents; Z91.19 Patient's noncompliance with other medical treatment and regimen; Z82.49 Family history of ischemic heart disease and other diseases of the circulatory system; Z83.6 Family history of other diseases of the respiratory system
CPT/HCPCS: 01480; 01482; 36415; 36430; 71010; 80048; 80053; 80307; 81001; 81025; 82607; 82728; 82746; 82962; 83540; 83550; 83735; 85025; 85027; 85045; 86850; 86900; 86901; 86920; 87040; 87070; 87075; 87077; 87186; 87205; 88305; 90686; 93005; 93010; 96372; 96374; 99291; C1751; J1100; J1170; J1642; J1644; J1885; J1956; J2250; J2270; J2405; J2704; J2765; J3010; J3370; J3480; J3490; J7030; P9016; S0119

== ENCOUNTER 2017-06-09 15:31 | Emergency (ER) | payer MEDICAID, OTHER ==
--- NOTE | 2017-06-09 17:36 | ER Document Report ---
ED Skin Rash/Insect Bite/Abscs - General Chief Complaint: Skin Sore(s) Stated Complaint: POSSIBLE INSECT BITES Time Seen by Provider: 06/09/17 17:06 Mode of Arrival: Ambulatory Information source: Patient Notes: 41-year-old female presents to ED for multiple sores to her body. She has some on her face on her scalp on her arm on her abdomen on her buttocks and on her legs. She stated they started about 3 or 4 days ago. She states she had one sore which she picked at which formed a lesion. And then she stated all the other source to start a pop in out. 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 She stated she has had the black blotches all over her skin since she was diagnosed with Moy Ruddy syndrome. She also has a right BKA due to a nonhealing sore that they tried debrided multiple times and then ended up having to take her leg off below the knee. She is also had surgery for bleeding ulcers. Patient states she also has a history of lupus arthritis anemia high blood pressure. TRAVEL OUTSIDE OF THE [place] IN LAST 30 DAYS: No - HPI Patient complains to provider of: Other - Multiple lesions to multiple sites that started 3-4 days ago Onset: Other Onset/Duration: Gradual - 3-4 days Quality of pain: Sharp Severity: Severe Pain Level: 5 Skin Character: Rash - Insect bites to both legs Quality of rash: Painful Exacerbated by: Denies Relieved by: Denies Similar symptoms previously: Yes Recently seen / treated by doctor: No - Related Data Allergies/Adverse Reactions: amoxicillin [From Augmentin] Allergy (Verified 06/09/17 15:51) Generalized Itching cephalexin [From Keflex] Allergy (Verified 06/09/17 15:51) clavulanic acid [From Augmentin] Allergy (Verified 06/09/17 15:51) sulfamethoxazole [From Septra] Allergy (Verified 06/09/17 15:51) trimethoprim [From Septra] Allergy (Verified 06/09/17 15:51) Past Medical History - General Information source: Patient - Social History Smoking Status: Former Smoker Frequency of alcohol use: Occasional Drug Abuse: Cocaine Family History: Hypertension Patient has suicidal ideation: No Patient has homicidal ideation: No - Past Medical History Cardiac Medical History: Reports: Hx Hypertension Pulmonary Medical History: Reports: None EENT Medical History: Reports: None Neurological Medical History: Reports: None Endocrine Medical History: Reports: None Renal/ Medical History: Reports: Hx End Stage Renal Disease Malignancy Medical History: Reports: None GI Medical History: Reports: Hx Gastroesophageal Reflux Disease Musculoskeltal Medical History: Reports Hx Arthritis - lupus Skin Medical History: Reports None Psychiatric Medical History: Reports: None Traumatic Medical History: Reports: None Infectious Medical History: Reports: None Past Surgical History: Reports: Hx Section - 3, Hx Orthopedic Surgery - right bka, Other - Previous wound debridements - Immunizations Immunizations up to date: Yes Hx Diphtheria, Pertussis, Tetanus Vaccination: Yes Review of Systems - Review of Systems Constitutional: No symptoms reported EENT: No symptoms reported Cardiovascular: No symptoms reported Respiratory: No symptoms reported Gastrointestinal: No symptoms reported Genitourinary: No symptoms reported Female Genitourinary: No symptoms reported Musculoskeletal: No symptoms reported Skin: Lesions, Other - black splotche to entire body from previous moy ruddy's syndrome Hematologic/Lymphatic: No symptoms reported Neurological/Psychological: No symptoms reported -: Yes All other systems reviewed and negative Physical Exam - Vital signs Vitals: Temp Pulse Resp BP Pulse Ox 98.8 F 93 16 122/82 100 06/09/17 15:46 06/09/17 15:46 06/09/17 15:46 06/09/17 15:46 06/09/17 15:46 Interpretation: Normal - General General appearance: Appears well, Alert - HEENT Head: Normocephalic, Atraumatic Eyes: Normal Pupils: PERRL - Respiratory Respiratory status: No respiratory distress Chest status: Nontender Breath sounds: Normal Chest palpation: Normal - Cardiovascular Rhythm: Regular Heart sounds: Normal auscultation Murmur: No - Abdominal Inspection: Normal Distension: No distension Bowel sounds: Normal Tenderness: Nontender Organomegaly: No organomegaly - Back Back: Normal, Nontender - Extremities General upper extremity: Normal inspection, Nontender, Normal color, Normal ROM , Normal temperature General lower extremity: Normal inspection, Nontender, Normal color, Normal ROM , Normal temperature, Normal weight bearing. No: Lida's sign - Neurological Neuro grossly intact: Yes Cognition: Normal Orientation: AAOx4 Santy Coma Scale Eye Opening: Spontaneous [place] Coma Scale Verbal: Oriented [place] Coma Scale Motor: Obeys Commands [place] Coma Scale Total: 15 Speech: Normal Motor strength normal: LUE, RUE, LLE, RLE Sensory: Normal - Psychological Associated symptoms: Normal affect, Normal mood - Skin Skin Temperature: Warm Skin Moisture: Dry Skin Color: Normal Location of irregularity: Generalized - black splotches to entire body with lesions to multiple areas of the body to enclude face all extremities buttocks and abdomen Irregularity with: Tenderness Course - Re-evaluation Re-evalutation: 06/09/17 21:46 No signs of any infection. HIV negative chemistries are negative. Will order Bactroban for her lesions and discharged home. Patient stated after her initial assessment that she uses cocaine and is use it up until yesterday. She states she does pick at her skin at times but she does not remember picking these areas. Patient was given instructions on need to not pick at her skin and to please stay off of the cocaine as this will continue to cause lesions to her skin and she could get another infection like the one she had that caused her to lose her right leg. - Vital Signs Vital signs: Temp Pulse Resp BP Pulse Ox 97.8 F 62 18 118/68 100 06/09/17 22:08 06/09/17 22:08 06/09/17 22:08 06/09/17 22:08 06/09/17 15:46 - Laboratory Result Diagrams: 06/09/17 20:04 06/09/17 18:25 Laboratory results interpreted by me: 06/09/17 06/09/17 18:25 20:04 Hgb 10.5 L Hct 31.8 L MCH 26.4 L RDW 15.4 H Seg Neutrophils % 87.4 H Lymphocytes % 6.6 L Absolute Lymphocytes 0.4 L Carbon Dioxide 17 L Total Protein 8.6 H Discharge - Discharge Clinical Impression: skin lesion due skin picking Condition: Stable Disposition: HOME, SELF-CARE Additional Instructions: You were seen today for skin lesions to multiple areas on your body. You state the lesion started when you had a bump on your face and you picked it. We have also stated you have been using cocaine which causes people to pick their skin frequently causing similar sores. Please stop using cocaine. SOAP CLEANSING: Gently wash the wound daily using a mild soap (like Ivory, Phisoderm, Neutrogena). Use warm water, rubbing gently until all debris, ooze, and crusting have been washed from the wound. Allow to dry briefly (about 10 minutes) after cleaning. Repeat this cleansing at least three times a day for the first two days and then once or twice a day. Bactroban Ointment Bactroban is very effective against the germs that cause infection within the skin. It's useful for impetigo and other superficial infections. Deeper infections require antibiotics by mouth or by shot. Apply the medicine three times a day for one week, or longer if your doctor has advised it. Stop the medicine and call your doctor if you develop large blisters, severe itching, increasing pain, swelling, fever, or spreading redness. FOLLOW-UP CARE: If you have been referred to a physician for follow-up care, call the physician s office for an appointment as you were instructed or within the next two days. If you experience worsening or a significant change in your symptoms, notify the physician immediately or return to the Emergency Department at any time for re-evaluation. Prescriptions: Mupirocin [Bactroban 2% Ointment 22 gm] 1 applic TP TID #1 tube
[2017-06-09] MEDS ORDERED: ACETAMINOPHEN 325 MG TABLET PO ONE (19:00)
[2017-06-09 19:12] LABS: ALANINE AMINOTRANSFERASE 19 U/L (9-52); ALBUMIN 4.1 g/dL (3.5-5.0); ALKALINE PHOSPHATASE 82 U/L (38-126); ANION GAP 13 (5-19); ASPARTATE AMINO TRANSFERASE 27 U/L (14-36); BILIRUBIN,DIRECT 0.4 mg/dL (0.0-0.4); BILIRUBIN,TOTAL 0.4 mg/dL (0.2-1.3); BLOOD UREA NITROGEN 11 mg/dL (7-20); CARBON DIOXIDE 17 mmol/L (22-30); CHLORIDE 107 mmol/L (98-107); CREATININE RESULT 0.64 mg/dL (0.52-1.25); GLUCOSE 78 mg/dL (75-110); TOTAL PROTEIN 8.6 g/dL (6.3-8.2)
[2017-06-09 20:34] LABS: ABSOLUTE LYMPHOCYTES (AUTO) 0.4 10^3/uL (0.5-4.7); ABSOLUTE MONOCYTES (AUTO) 0.3 10^3/uL (0.1-1.4); ABSOLUTE NEUT (AUTO) 5.4 10^3/uL (1.7-8.2); BASOPHILS % (AUTO) 0.4 % (0-2); EOSINOPHILS % (AUTO) 0.2 % (0-6); HEMATOCRIT 31.8 % (36.0-47.0); HEMOGLOBIN 10.5 g/dL (12.0-15.5); HGB HCT DIFFERENCE -0.3; LYMPHOCYTES % (AUTO) 6.6 % (13-45); MEAN CORPUSCULAR HEMOGLOBIN 26.4 pg (27.0-33.4); MEAN CORPUSCULAR HGB CONC 33.2 g/dL (32.0-36.0); MEAN CORPUSCULAR VOLUME 80 fl (80-97); MONOCYTES % (AUTO) 5.4 % (3-13); RED BLOOD COUNT 3.99 10^6/uL (3.72-5.28); RED CELL DISTRIBUTION WIDTH 15.4 % (11.5-14.0); SEGMENTED NEUTROPHILS % (AUTO) 87.4 % (42-78); WHITE BLOOD COUNT 6.2 10^3/uL (4.0-10.5)
[2017-06-09 21:17] LABS: ADD HIVPANEL? NO; HIV (1 AND 2) ANTIBODY NEGATIVE (NEGATIVE)
[2017-06-09] MEDS ORDERED: MUPIROCIN 2% OINTMENT 22 GM TP ONE (21:49)
[2017-06-09 22:10] VITALS: BP 118/68
== END 2017-06-09 22:08 | disposition home or self-care (01) ==
LOC: ER 15:31
DX: L98.9 Disorder of the skin and subcutaneous tissue, unspecified (principal); F14.10 Cocaine abuse, uncomplicated; I12.0 Hypertensive chronic kidney disease with stage 5 chronic kidney disease or end stage renal disease; N18.6 End stage renal disease; Z88.0 Allergy status to penicillin; Z88.1 Allergy status to other antibiotic agents; Z87.891 Personal history of nicotine dependence
CPT/HCPCS: 99283; 36415; 87040; 85025; 87077; 80053; 86701; 87186; J3490 ×2

== ENCOUNTER 2017-06-11 03:01 | Inpatient (IN) | payer MEDICAID, OTHER ==
[2017-06-11] MEDS ORDERED: KETOROLAC TROMETHAMINE INJ/PF 30 MG/1 ML SDV IV ONE (03:23)
[2017-06-11] MEDS ORDERED: NORMAL SALINE 1000 ML 1,000 ML IV ONE ×4 (03:23→08:03)
--- NOTE | 2017-06-11 03:25 | ER Document Report ---
ED General - General TRAVEL OUTSIDE OF THE [place] IN LAST 30 DAYS: No <EAMON COYLE - Last Filed: 06/11/17 07:13> <DELON REICH - Last Filed: 06/11/17 08:11> - General Chief Complaint: Dizziness Stated Complaint: DIZZINESS Time Seen by Provider: 06/11/17 03:16 Notes: Patient is a 41-year-old female comes emergency department for chief complaint of feeling weak because she has not eaten in 2 days. She states that she could not get to the food and her roommate would not get her anything. She has a right BKA. She comes by EMS. She states that her left knee hurts and that is why she could not get around. She denies injury to the area, fever, chest pain , vomiting, difficulty breathing. Past medical history of hypertension, lupus, vasculitis, she states she has never needed anything for lupus except occasional steroids. (EAMON COYLE) - Related Data Allergies/Adverse Reactions: amoxicillin [From Augmentin] Allergy (Verified 06/09/17 15:51) Generalized Itching cephalexin [From Keflex] Allergy (Verified 06/09/17 15:51) clavulanic acid [From Augmentin] Allergy (Verified 06/09/17 15:51) sulfamethoxazole [From Septra] Allergy (Verified 06/09/17 15:51) trimethoprim [From Septra] Allergy (Verified 06/09/17 15:51) Past Medical History - General Information source: Patient - Social History Smoking Status: Former Smoker Lives with: Friend Family History: Hypertension Patient has suicidal ideation: No Patient has homicidal ideation: No - Past Medical History Cardiac Medical History: Reports: Hx Hypertension Renal/ Medical History: Reports: Hx End Stage Renal Disease. Denies: Hx Peritoneal Dialysis GI Medical History: Reports: Hx Gastroesophageal Reflux Disease Musculoskeltal Medical History: Reports Hx Arthritis - lupus Past Surgical History: Reports: Hx Section - 3, Hx Orthopedic Surgery - right bka, Other - Previous wound debridements - Immunizations Immunizations up to date: Yes Hx Diphtheria, Pertussis, Tetanus Vaccination: Yes <EAMON COYLE - Last Filed: 06/11/17 07:13> Review of Systems - Review of Systems Constitutional: See HPI EENT: No symptoms reported Cardiovascular: No symptoms reported Respiratory: No symptoms reported Gastrointestinal: No symptoms reported Genitourinary: No symptoms reported Female Genitourinary: No symptoms reported Musculoskeletal: See HPI Skin: No symptoms reported Hematologic/Lymphatic: No symptoms reported Neurological/Psychological: No symptoms reported <EAMON COYLE Filed: 06/11/17 07:13> Physical Exam - Vital signs Interpretation: Normal - General General appearance: Other - patient appears chronically unwell - HEENT Head: Normocephalic, Atraumatic Eyes: Normal Pupils: PERRL Mouth/Lips: Normal Mucous membranes: Dry Pharynx: Normal Neck: Normal - Respiratory Respiratory status: No respiratory distress. No: Labored, Tachypnea Chest status: Nontender Breath sounds: Normal. No: Decreased air movement, Wheezing Chest palpation: Normal - Cardiovascular Rhythm: Regular, Tachycardia Heart sounds: Normal auscultation, S1 appreciated, S2 appreciated Murmur: No - Abdominal Inspection: Normal Distension: No distension Bowel sounds: Normal Tenderness: Nontender. No: Tender, Guarding Organomegaly: No organomegaly - Back Back: Normal, Nontender - Extremities General upper extremity: Other - Patient with difficulty bending both elbows. Right BKA. Left lower extremity does show swelling of the knee but patient is able to bend the knee and there is no significant erythema or tenderness to the area. Normal distal pulses and capillary refill. Normal sensation. - Neurological Neuro grossly intact: Yes Cognition: Normal Orientation: AAOx4 Santy Coma Scale Eye Opening: Spontaneous [place] Coma Scale Verbal: Oriented [place] Coma Scale Motor: Obeys Commands [place] Coma Scale Total: 15 Speech: Normal Motor strength normal: LUE, RUE, LLE, RLE Sensory: Normal - Psychological Associated symptoms: Normal affect, Normal mood - Skin Skin Temperature: Warm Skin Moisture: Dry Skin Color: Normal Skin irregularity: other - Widespread ulcerations over most of the body <EAMON COYLE Filed: 06/11/17 07:13> - Vital signs Vitals: Temp Pulse Resp BP Pulse Ox 98.0 F 101 H 18 98/64 L 100 06/11/17 03:09 06/11/17 03:09 06/11/17 03:09 06/11/17 03:09 06/11/17 03:09 Course - Laboratory Result Diagrams: 06/11/17 05:45 06/11/17 05:45 <EAMON COYLE Filed: 06/11/17 07:13> - Laboratory Result Diagrams: 06/11/17 05:45 06/11/17 05:45 <DELON REICH - Last Filed: 06/11/17 08:11> - Re-evaluation Re-evalutation: Patient is extremely difficult to get any blood on, multiple lab personnel have , and tried. Eventually able to place an ultrasound guided IV and obtain labs. Given IVF, still tachycardic after 1 bag. Patient repeatedly asking for narcotics, agreed to give toradol but informed her I would not be giving her narcotics. Knee x-ray shows effusion. BMP shows low bicarbonate consistent with dehydration. Potassium and sodium unremarkable. Acute renal insufficiency with creatinine of 1.35 and lowered GFR. 06/11/17 07:13 CBC finally resulted, shows 39% bands. Concern for sepsis. Patient does have a warm left elbow, multiple ulcers over her body, is chronically very unwell appearing. Source is not obvious, patient did not have a fever, hypotension has resolved after IV fluids. Adding additional studies including lactic acid, blood cultures have already been drawn, adding chest x-ray, urine is still pending. (EAMON COYLE) 06/11/17 08:10 Chest x-ray shows a right perihilar pneumonia. Dr. Traore will admit inpatient to telemetry. Antibiotics have been started. I told the nurse again to get the cath urine. Third liter of normal saline has been ordered with normal saline at 150 an hour. vitals stable. 06/11/17 08:11 (DELON REICH) - Vital Signs Vital signs: Temp Pulse Resp BP Pulse Ox 98.0 F 101 H 19 114/86 H 100 06/11/17 03:09 06/11/17 03:09 06/11/17 07:01 06/11/17 07:01 06/11/17 06:01 - Laboratory Laboratory results interpreted by me: 06/11/17 06/11/17 06/11/17 05:45 05:45 05:45 Hgb 10.1 L Hct 30.0 L MCH 26.9 L RDW 15.4 H Plt Count 109 L Band Neutrophils % 39 H Lymphocytes % (Manual) 3 L Metamyelocytes % 2 H Abs Lymphs (Manual) 0.3 L Chloride 110 H Carbon Dioxide 14 L BUN 21 H Creatinine 1.35 H Est GFR ( Amer) 52 L Est GFR (Non-Af Amer) 43 L Glucose 112 H Calcium 8.0 L Direct Bilirubin 0.5 H Albumin 3.1 L
--- NOTE | 2017-06-11 04:45 | RADIOLOGY REPORT (SQ) ---
EXAM DESCRIPTION: KNEE LEFT 4 VIEW COMPLETED DATE/TIME: 06/11/2017 4:18 am REASON FOR STUDY: ?swelling, pain COMPARISON: 4. NUMBER OF VIEWS: Four views. TECHNIQUE: AP, lateral, and both oblique radiographic images acquired of the left knee. LIMITATIONS: None. FINDINGS: MINERALIZATION: Normal. BONES: No acute fracture or dislocation. No worrisome bone lesions. JOINT: Moderate -large left knee effusion. SOFT TISSUES: No soft tissue swelling. No radio-opaque foreign body. OTHER: No other significant finding. IMPRESSION: Moderate-large left knee effusion, larger than on prior radiographs from 02/02/2011. TECHNICAL DOCUMENTATION: JOB ID: [id number] [employer]- All Rights Reserved
[2017-06-11 06:17] LABS: ANION GAP 15 (5-19); BLOOD UREA NITROGEN 21 mg/dL (7-20); CARBON DIOXIDE 14 mmol/L (22-30); CHLORIDE 110 mmol/L (98-107); CREATININE RESULT 1.35 mg/dL (0.52-1.25); GLUCOSE 112 mg/dL (75-110); POTASSIUM 3.6 mmol/L (3.6-5.0); SODIUM 138.9 mmol/L (137-145)
[2017-06-11 06:46] LABS: HEMOGLOBIN 10.1 g/dL (12.0-15.5); HGB HCT DIFFERENCE 0.3; MEAN CORPUSCULAR HEMOGLOBIN 26.9 pg (27.0-33.4); MEAN CORPUSCULAR HGB CONC 33.7 g/dL (32.0-36.0); MEAN CORPUSCULAR VOLUME 80 fl (80-97); RED BLOOD COUNT 3.77 10^6/uL (3.72-5.28); RED CELL DISTRIBUTION WIDTH 15.4 % (11.5-14.0); WHITE BLOOD COUNT 8.5 10^3/uL (4.0-10.5)
[2017-06-11 07:00] LABS: BASOPHILS % (MANUAL) 0 % (0-2); EOSINOPHILS % (MANUAL) 0 % (0-6); LYMPHOCYTES % (MANUAL) 3 % (13-45); TOTAL CELLS COUNTED 100
[2017-06-11 07:02] LABS: POLYCHROMASIA SLIGHT; TOXIC GRANULATION 1+
[2017-06-11 07:03] LABS: ANISOCYTOSIS SLIGHT; BAND NEUTROPHILS % (MANUAL) 39 % (3-5); HYPOCHROMASIA SLIGHT; MICROCYTOSIS SLIGHT; OVALOCYTES SLIGHT; POIKILOCYTOSIS SLIGHT; TARGET CELLS SLIGHT; TEAR DROP CELLS SLIGHT
[2017-06-11] MEDS ORDERED: VANCOMYCIN HCL INJ 1000 MG VIAL IV ONE (07:06)
[2017-06-11] MEDS ORDERED: AZTREONAM INJ 1 GM VIAL IV ONE (07:06)
[2017-06-11] MEDS ORDERED: ACETAMINOPHEN 325 MG TABLET PO ONE (07:23)
--- NOTE | 2017-06-11 07:41 | RADIOLOGY REPORT (SQ) ---
EXAM DESCRIPTION: CHEST SINGLE VIEW COMPLETED DATE/TIME: 06/11/2017 7:31 am REASON FOR STUDY: ? sepsis COMPARISON: None. EXAM PARAMETERS: NUMBER OF VIEWS: One view. TECHNIQUE: Single frontal radiographic view of the chest acquired. RADIATION DOSE: NA LIMITATIONS: None. FINDINGS: LUNGS AND PLEURA: Small -moderate right infrahilar patchy airspace opacity, new compared w ith prior exam, 12/04/2016. MEDIASTINUM AND HILAR STRUCTURES: No masses. Contour normal. HEART AND VASCULAR STRUCTURES: Heart normal in size. Normal vasculature. BONES: No acute findings. HARDWARE: None in the chest. OTHER: No other significant finding. IMPRESSION: Moderate right infrahilar pneumonia. TECHNICAL DOCUMENTATION: JOB ID: [id number]
[2017-06-11 07:55] LABS: ALANINE AMINOTRANSFERASE 17 U/L (9-52); ALBUMIN 3.1 g/dL (3.5-5.0); ALKALINE PHOSPHATASE 71 U/L (38-126); ASPARTATE AMINO TRANSFERASE 26 U/L (14-36); BILIRUBIN,DIRECT 0.5 mg/dL (0.0-0.4); BILIRUBIN,TOTAL 0.5 mg/dL (0.2-1.3); TOTAL PROTEIN 7.3 g/dL (6.3-8.2)
[2017-06-11 07:57] LABS: URIC ACID 4.5 mg/dL (2.5-7.0)
[2017-06-11 08:55] LABS: APPEARANCE,URINE SLIGHTLY-CLOUDY; GLUCOSE, URINE 50 mg/dL (NEGATIVE)
[2017-06-11 08:56] LABS: BILIRUBIN,URINE NEGATIVE (NEGATIVE); KETONES,URINE NEGATIVE (NEGATIVE); LEUKOCYTE ESTERASE,URINE SMALL (NEGATIVE); NITRITE,URINE NEGATIVE (NEGATIVE); PROTEIN,URINE >=500 mg/dL (NEGATIVE); URINE SPECIFIC GRAVITY 1.025; UROBILINOGEN,URINE NEGATIVE mg/dL (<2.0)
[2017-06-11 08:59] LABS: BACTERIA,URINE TRACE /HPF; WBC,URINE 50-100 /HPF
[2017-06-11 09:06] LABS: C-REACTIVE PROTEIN 412.8 mg/L (<10.0)
[2017-06-11 09:07] LABS: URINE BARBITURATES SCREEN NEGATIVE; URINE METHADONE SCREEN NEGATIVE; URINE OPIATES LOW NEGATIVE; URINE PHENCYCLIDINE SCREEN NEGATIVE
[2017-06-11] MEDS ORDERED: NORMAL SALINE 1000 ML 1,000 ML IV PRN (10:16)
[2017-06-11] MEDS ORDERED: ONDANSETRON HCL INJ/PF 4 MG/2 ML SDV IV PRN (10:22)
[2017-06-11] MEDS ORDERED: LEVALBUTEROL HCL NEB 1.25 MG/3 ML AMPUL NEB PRN (10:24)
[2017-06-11] MEDS ORDERED: OXYCODONE HCL IR 5 MG TABLET PO PRN (10:30)
[2017-06-11] MEDS ORDERED: IMIPENEM/CILASTATIN SODIUM INJ 500 MG VIAL IV SCH (10:30)
[2017-06-11] MEDS ORDERED: MORPHINE SULFATE 10 MG/ML INJ IV ONE (11:00)
[2017-06-11 11:17] LABS: PATH REVIEW PATHOLOGIST REVIEWED
--- NOTE | 2017-06-11 11:54 | PDOC H&P ---
History of Present Illness Admission Date/PCP: 06/11/17 08:30 Patient complains of: Lower extremity pain and cough History of Present Illness: TAYLOR MACKEY is a 41 year old female, with history of vasculitis, lupus, right below-knee amputation, was seen in the emergency room recently because of her lesions on the skin of which she was given Bactrim topically. Culture of blood at that time showed streptococcus. Yesterday the patient started to develop lower extremity pain and knee pain on the left with associated increasing swelling of the knee as well. The patient denies any associated chills or fever , dysuria urgency or frequency, shortness of breath although he has some coughing. He has skin lesions on the hand on the forehead as well. Because of the significant pain the patient went to the emergency room for evaluation. Chest x-ray revealed infiltrate suggestive of pneumonia. X-ray of the knee revealed significant effusion compared to before. Patient was started on intravenous antibiotic and was referred for admission. Past Medical History Cardiac Medical History: Reports: Hypertension Renal/ Medical History: Reports: Chronic Kidney Disease GI Medical History: Reports: Gastroesophageal Reflux Disease, Other - Malnutrition Musculoskeltal Medical History: Reports: Arthritis - lupus, Other - Peripheral vascular disease and amputation Skin Medical History: Reports: Other - Impetigo Hematology: Reports: Anemia - Of chronic illness Past Surgical History Past Surgical History: Reports: Section - 3, Orthopedic Surgery - right bka, Other - Previous wound debridements Social History Information Source: Patient Lives with: Friend Smoking Status: Former Smoker Frequency of Alcohol Use: Heavy Hx Recreational Drug Use: Yes Drugs: Cocaine - Crack cocaine Hx Prescription Drug Abuse: No - patient denies Family History Family History: Hypertension Parental Family History Reviewed: Yes Children Family History Reviewed: Yes Sibling(s) Family History Reviewed.: Yes Medication/Allergy Home Medications: Losartan Potassium [Cozaar 50 mg Tablet] 50 mg PO DAILY 06/11/17 Allergies/Adverse Reactions: amoxicillin [From Augmentin] Allergy (Verified 06/09/17 15:51) Generalized Itching cephalexin [From Keflex] Allergy (Verified 06/09/17 15:51) clavulanic acid [From Augmentin] Allergy (Verified 06/09/17 15:51) sulfamethoxazole [From Septra] Allergy (Verified 06/09/17 15:51) trimethoprim [From Septra] Allergy (Verified 06/09/17 15:51) Review of Systems Constitutional: PRESENT: chills - Occasionally, weakness - Generalized. ABSENT : fever(s), headache(s), weight gain, weight loss Eyes: ABSENT: visual disturbances Ears: ABSENT: hearing changes Nose, Mouth, and Throat: PRESENT: sore throat - Recently. ABSENT: mouth pain Cardiovascular: PRESENT: edema - On the knee and elbow. ABSENT: chest pain, dyspnea on exertion, orthropnea, palpitations Respiratory: PRESENT: cough - Started earlier today. ABSENT: hemoptysis Gastrointestinal: ABSENT: abdominal pain, constipation, diarrhea, hematemesis, hematochezia, melena, nausea, vomiting Genitourinary: ABSENT: dysuria, hematuria Musculoskeletal: PRESENT: joint swelling, other - Below-knee amputation on the right Integumentary: PRESENT: pruritus - Intermittently. ABSENT: rash, wounds Neurological: ABSENT: abnormal gait, abnormal speech, confusion, dizziness, focal weakness, syncope Psychiatric: ABSENT: anxiety, depression, homidical ideation, suicidal ideation Endocrine: ABSENT: cold intolerance, heat intolerance, polydipsia, polyphagia, polyuria Hematologic/Lymphatic: ABSENT: easy bleeding, easy bruising Physical Exam Vital Signs: Temp Pulse Resp BP Pulse Ox 97.9 F 116 H 19 102/65 100 06/11/17 10:18 06/11/17 10:18 06/11/17 10:18 06/11/17 10:18 06/11/17 10:18 General appearance: PRESENT: disheveled, mild distress - Due to pain, thin Head exam: PRESENT: atraumatic, normocephalic Eye exam: PRESENT: conjunctiva pale, EOMI. ABSENT: scleral icterus Ear exam: PRESENT: normal external ear exam. ABSENT: drainage Mouth exam: PRESENT: moist, neck supple, tongue midline Throat exam: PRESENT: post pharyngeal erythema. ABSENT: tonsillar erythema, tonsillar exudate Neck exam: ABSENT: carotid bruit, JVD, lymphadenopathy, thyromegaly Respiratory exam: PRESENT: clear to auscultation rei - Anteriorly, unlabored. ABSENT: rales, rhonchi, wheezes Cardiovascular exam: PRESENT: RRR, systolic murmur - Left sternal border. ABSENT: diastolic murmur, rubs Pulses: PRESENT: normal dorsalis pedis pul Vascular exam: PRESENT: normal capillary refill GI/Abdominal exam: PRESENT: normal bowel sounds, soft. ABSENT: distended, guarding, mass, organolmegaly, rebound, tenderness Rectal exam: PRESENT: deferred Extremities exam: PRESENT: other - below knee amputation on the right, knee effusion on the left. ABSENT: calf tenderness, clubbing Neurological exam: PRESENT: alert, awake, oriented to person, oriented to place , oriented to time, oriented to situation Psychiatric exam: PRESENT: appropriate affect, normal mood. ABSENT: homicidal ideation, suicidal ideation Skin exam: PRESENT: dry, intact, rash - There is noted lesions on the hand the elbow as well as the forehead with crust formation but no purulent drainage., warm, other - Multiple healed scars all over the trunk and extremities bilaterally.. ABSENT: cyanosis, jaundice Results Impressions: Knee X-Ray 06/11/17 03:24 IMPRESSION: Moderate-large left knee effusion, larger than on prior radiographs from 02/02/2011. Chest X-Ray 06/11/17 07:07 IMPRESSION: Moderate right infrahilar pneumonia. Assessment & Plan - Diagnosis (1) Sepsis Qualifiers: Sepsis type: Streptococcus group A Qualified Code(s): A40.0 - Sepsis due to streptococcus, group A Is this a current diagnosis for this admission?: Yes (2) Pneumonia Qualifiers: Pneumonia type: due to unspecified organism Laterality: right Lung location: middle lobe of lung Qualified Code(s): J18.1 - Lobar pneumonia, unspecified organism (3) Abnormal urinalysis Is this a current diagnosis for this admission?: Yes (4) Effusion, left knee Is this a current diagnosis for this admission?: Yes (5) Crack cocaine use Is this a current diagnosis for this admission?: Yes (6) Anemia of chronic disease Is this a current diagnosis for this admission?: Yes (7) Essential hypertension Is this a current diagnosis for this admission?: Yes (8) Gastroesophageal reflux disease Qualifiers: Esophagitis presence: without esophagitis Qualified Code(s): K21.9 - Gastro -esophageal reflux disease without esophagitis Is this a current diagnosis for this admission?: Yes (9) Protein-calorie malnutrition, moderate Is this a current diagnosis for this admission?: Yes (10) SLE (systemic lupus erythematosus) Qualifiers: Systemic lupus erythematosus type: unspecified Systemic lupus erythematosus organ involvement: unspecified Qualified Code(s): M32.9 - Systemic lupus erythematosus, unspecified Is this a current diagnosis for this admission?: Yes (11) Vasculitis Is this a current diagnosis for this admission?: Yes - Time Time Spent: 50 to 70 Minutes - Inpatient Certification Based on my medical assessment, after consideration of the patient's comorbidities, presenting symptoms, or acuity I expect that the services needed warrant INPATIENT care.: Yes I certify that my determination is in accordance with my understanding of Medicare's requirements for reasonable and necessary INPATIENT services [42 CFR 412.3e].: Yes Medical Necessity: Significant Comorbidiites Make Outpatient Treatment Too Risky , Need Close Monitoring Due to Risk of Patient Decompensation, Need For IV Fluids, Need for IV Antibiotics, Risk of Complication if Not Cared For in Hospital, Risk of Diagnosis Which Will Require Inpatient Eval/Care/Monitoring Post Hospital Care: D/C Rotary Drill Operator Documentation - Plan Summary Plan Summary: We will admit the patient to telemetry. I will gently hydrate the patient with normal saline. We will begin broad-spectrum antibiotic with Primaxin and vancomycin based on prior cultures from previous admissions. In the meantime we will monitor creatinine, consult orthopedics for the joint effusion. DVT prophylaxis with Lovenox will be placed. We will culture the blood urine and sputum. Further testing depends on the initial evaluations outlined above.
[2017-06-11] MEDS ORDERED: RINGERS SOLUTION,LACTATED 1,000 ML IV PRN (15:32)
[2017-06-11] MEDS: VANCOMYCIN HCL 1,000 MG in DEXTROSE 5%-WATER 250 ML IV SCH (16:23)
[2017-06-11] MEDS: MORPHINE SULFATE 10 MG/ML INJ IV PRN ×2 (16:24→20:48)
[2017-06-11] MEDS: IMIPENEM/CILASTATIN SODIUM 500 MG in NORMAL SALINE 100 ML IV SCH ×2 (18:26→21:43)
[2017-06-11] MEDS: DOCUSATE SODIUM 100 MG CAPSULE PO SCH (18:34)
[2017-06-11] MEDS: LANSOPRAZOLE 30 MG TAB.RAP.DR PO SCH (18:34)
[2017-06-11 18:38] LABS: OTHER CRYSTALS NONE OBSERVED
[2017-06-11 18:49] LABS: FLUID TYPE SYNOVIAL
[2017-06-11 18:50] LABS: FLUID APPEARANCE HAZY; FLUID RBC AVERAGE 151.5; FLUID RBC DILUENT USED SALINE; FLUID RBC DILUTION FACTOR 10; FLUID RBC SIDE 1 150; FLUID RBC SIDE 2 153; TOTAL RBC SQUARES COUNTED FLD 25
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
[2017-06-11] MEDS ORDERED: NORMAL SALINE 500 ML IV ONE (20:30)
[2017-06-11] MEDS: ACETAMINOPHEN 325 MG TABLET PO PRN (21:44)
[2017-06-11] MEDS: GUAIFENESIN 600 MG TABLET.SA PO SCH (21:45)
[2017-06-11] MEDS ORDERED: RINGERS SOLUTION,LACTATED 1,000 ML IV ONE ×2 (22:15→23:45)
[2017-06-11 22:42] LABS: HEMATOCRIT 29.7 % (36.0-47.0); HEMOGLOBIN 9.9 g/dL (12.0-15.5); MEAN CORPUSCULAR HEMOGLOBIN 26.6 pg (27.0-33.4); MEAN CORPUSCULAR HGB CONC 33.3 g/dL (32.0-36.0); MEAN CORPUSCULAR VOLUME 80 fl (80-97); RED BLOOD COUNT 3.72 10^6/uL (3.72-5.28); WHITE BLOOD COUNT 6.2 10^3/uL (4.0-10.5)
[2017-06-11 22:56] LABS: ANION GAP 8 (5-19); BAND NEUTROPHILS % (MANUAL) 34 % (3-5); BASOPHILS % (MANUAL) 0 % (0-2); BLOOD UREA NITROGEN 20 mg/dL (7-20); CARBON DIOXIDE 14 mmol/L (22-30); CHLORIDE 110 mmol/L (98-107); CREATININE RESULT 0.82 mg/dL (0.52-1.25); EOSINOPHILS % (MANUAL) 0 % (0-6); GLUCOSE 128 mg/dL (75-110); LYMPHOCYTES % (MANUAL) 3 % (13-45); MAGNESIUM 1.4 mg/dL (1.6-2.3); POTASSIUM 3.2 mmol/L (3.6-5.0); SODIUM 132.2 mmol/L (137-145); TOTAL CELLS COUNTED 100
[2017-06-11 22:58] LABS: ANISOCYTOSIS 1+; HYPOCHROMASIA SLIGHT; MICROCYTOSIS SLIGHT; POIKILOCYTOSIS SLIGHT; TOXIC GRANULATION SLIGHT
[2017-06-11 23:11] LABS: CALCIUM 7.1 mg/dL (8.4-10.2)
[2017-06-11] MEDS ORDERED: THIAMINE HCL INJ 200 MG/2 ML VIAL IV PRN (23:46)
[2017-06-11 23:53] LABS: ADD ON TESTING BLD IN LAB ACKNOWLEDGE
[2017-06-11 23:58] LABS: ALBUMIN 2.5 g/dL (3.5-5.0)
[2017-06-12] MEDS ORDERED: THIAMINE HCL 100 MG in NORMAL SALINE 50 ML IV ONE ×2
--- NOTE | 2017-06-12 00:02 | EKG REPORT ---
SEVERITY:- OTHERWISE NORMAL ECG - SINUS TACHYCARDIA BORDERLINE LEFT AXIS DEVIATION : Confirmed by: Ruy Carranza 12-Jun-2017 00:01:33
[2017-06-12] MEDS: MAGNESIUM SULFATE/D5W 1 GM/100 ML RTUPB IV SCH ×2 (00:03→01:33)
[2017-06-12] MEDS ORDERED: THIAMINE HCL INJ 200 MG/2 ML VIAL ONE (00:21)
[2017-06-12] MEDS: POTASSI CL 20 MEQ/50 ML RIDER 20 MEQ/50 ML RTUPB IV SCH ×2 (00:36→03:46)
[2017-06-12] MEDS ORDERED: OXYCODONE HCL IR 5 MG TABLET PO PRN (00:45)
[2017-06-12] MEDS: MORPHINE SULFATE 10 MG/ML INJ IV PRN ×3 (01:29→21:47)
[2017-06-12] MEDS: NORMAL SALINE 1000 ML 1,000 ML IV PRN ×2 (01:35→06:46)
[2017-06-12 02:30] LABS: ADD ON TESTING BLD IN LAB ACKNOWLEDGE
[2017-06-12 02:47] LABS: ALBUMIN 2.5 g/dL (3.5-5.0)
[2017-06-12 02:50] LABS: ANION GAP 12 (5-19); BLOOD UREA NITROGEN 19 mg/dL (7-20); CALCIUM 7.1 mg/dL (8.4-10.2); CARBON DIOXIDE 13 mmol/L (22-30); CHLORIDE 110 mmol/L (98-107); CREATININE RESULT 0.73 mg/dL (0.52-1.25); GLUCOSE 109 mg/dL (75-110); POTASSIUM 3.5 mmol/L (3.6-5.0); SODIUM 134.5 mmol/L (137-145)
[2017-06-12] MEDS: IMIPENEM/CILASTATIN SODIUM 500 MG in NORMAL SALINE 100 ML IV SCH ×4 (03:47→21:47)
[2017-06-12] MEDS ORDERED: MAGNESIUM SULFATE/D5W 1 GM/100 ML RTUPB IV ONE (05:15)
[2017-06-12] MEDS ORDERED: RINGERS SOLUTION,LACTATED 1,000 ML IV ONE (05:15)
[2017-06-12 05:27] LABS: HEMATOCRIT 29.2 % (36.0-47.0); HEMOGLOBIN 9.6 g/dL (12.0-15.5); HGB HCT DIFFERENCE -0.4; MEAN CORPUSCULAR HEMOGLOBIN 26.3 pg (27.0-33.4); MEAN CORPUSCULAR HGB CONC 33.1 g/dL (32.0-36.0); MEAN CORPUSCULAR VOLUME 80 fl (80-97); RED BLOOD COUNT 3.67 10^6/uL (3.72-5.28); RED CELL DISTRIBUTION WIDTH 15.4 % (11.5-14.0); WHITE BLOOD COUNT 5.5 10^3/uL (4.0-10.5)
[2017-06-12] MEDS: LANSOPRAZOLE 30 MG TAB.RAP.DR PO SCH ×2 (05:31→17:43)
[2017-06-12 05:49] LABS: ANION GAP 12 (5-19); BLOOD UREA NITROGEN 18 mg/dL (7-20); CARBON DIOXIDE 13 mmol/L (22-30); CHLORIDE 109 mmol/L (98-107); CREATININE RESULT 0.72 mg/dL (0.52-1.25); GLUCOSE 101 mg/dL (75-110); POTASSIUM 3.4 mmol/L (3.6-5.0); SODIUM 134.3 mmol/L (137-145)
[2017-06-12 05:53] LABS: BAND NEUTROPHILS % (MANUAL) 34 % (3-5); BASOPHILS % (MANUAL) 0 % (0-2); EOSINOPHILS % (MANUAL) 0 % (0-6); LYMPHOCYTES % (MANUAL) 6 % (13-45); TOTAL CELLS COUNTED 100
[2017-06-12 05:56] LABS: ANISOCYTOSIS 1+; BURR CELLS 1+; HYPOCHROMASIA 1+; MICROCYTOSIS 1+; POIKILOCYTOSIS 2+; TARGET CELLS 2+; TEAR DROP CELLS SLIGHT; TOXIC GRANULATION 1+; TOXIC VACUOLATION PRESENT
[2017-06-12] MEDS ORDERED: POTASSI CL 20 MEQ/50 ML RIDER 20 MEQ/50 ML RTUPB IV SCH (06:30)
[2017-06-12] MEDS ORDERED: FENTANYL CITRATE INJ/PF 100 MCG/2 ML AMPUL ONE (08:23)
[2017-06-12] MEDS ORDERED: MIDAZOLAM 2 MG/2 ML INJ ONE (08:24)
[2017-06-12] MEDS ORDERED: ONDANSETRON HCL INJ/PF 4 MG/2 ML SDV ONE (08:24)
[2017-06-12] MEDS ORDERED: DEXMEDETOMIDINE INJ 80 MCG/20 ML VIAL IV ONE (08:24)
[2017-06-12] MEDS ORDERED: PROPOFOL INJ 200 MG/20 ML VIAL IV ONE (08:24)
[2017-06-12] MEDS ORDERED: MORPHINE SULFATE 10 MG/ML INJ IV PRN (09:07)
[2017-06-12] MEDS ORDERED: DIPHENHYDRAMINE HCL 50 MG/ML VIAL IV PRN (09:07)
[2017-06-12] MEDS ORDERED: FENTANYL CITRATE INJ/PF 100 MCG/2 ML AMPUL IV PRN ×3 (09:07)
[2017-06-12] MEDS ORDERED: MEPERIDINE HCL/PF INJ 25 MG/1 ML DISP.SYRIN IV PRN (09:07)
[2017-06-12] MEDS ORDERED: BUPIVACAINE HCL 0.25 % INJ/PF (2.5 MG/1 ML) 30 ML VIAL ONE (09:08)
[2017-06-12] MEDS ORDERED: LIDOCAINE 1% INJ-PF (10 MG/ML) 30 ML SDV ONE (09:08)
[2017-06-12] MEDS ORDERED: VANCOMYCIN HCL INJ 1000 MG VIAL IV SCH (10:00)
[2017-06-12] MEDS ORDERED: AZITHROMYCIN 500 MG in DEXTROSE 5%-WATER 250 ML IV SCH (10:00)
--- NOTE | 2017-06-12 10:03 | Operative Report ---
Operative Report DATE OF SURGERY: 06/12/17 PREOPERATIVE DIAGNOSIS: Left septic knee arthritis POSTOPERATIVE DIAGNOSIS: Same OPERATION: Arthrotomy with irrigation and debridement of left septic knee SURGEON: FAY SHAW ANESTHESIA: GA TISSUE REMOVED OR ALTERED: Synovial tissue COMPLICATIONS: None ESTIMATED BLOOD LOSS: 30 mL INTRAOPERATIVE FINDINGS: As above PROCEDURE: Patient was brought to the operating room. Patient was placed on the MAC. the left lower extremity was prepped and draped in a normal sterile surgical fashion. Timeout was done identifying the left knee as the correct site. Combination of lidocaine and Marcaine was then injected superficially and deep. We allowed the medication to take effect and 10 minutes we then proceeded to do a longitudinal 2-3 inch incision just over the patella. Dissection was taken down to the medial retinaculum. Bovie was used to coagulate any venous bleed. Self-retaining was applied and then a knife was used to do a arthrotomy medial parapatellar approach about a 3 inch opening quickly exposing the tube with fluid and infected knee. Cultures were taken. Suction was used to remove the remaining purulence. Examination of the synovium showed significant synovitis and redness. Cartilage was still intact. I used the pulse lavage emr implementation specialist and went through 6 L of sterile saline solution through the knee. I inspected the knee did not see any other areas of concern and debrided any synovial tissue at the edges of the cartilage. There is no loose bodies. A small stab incision laterally on the superior lateral portion was done and the drain was placed in the knee. Drain was not sutured. At this point then I proceeded to close the incision with PDS. The arthrotomy closed with 0 PDS and subcutaneous tissue with 0 PDS. We used lorraine for skin. Extremity was covered with 4 x 4 dressing, abdominal pads, Kerlix and overwrapped with Coban. Patient then was undraped and transferred to her bed and taken to PACU in a stable condition.
[2017-06-12] MEDS ORDERED: MORPHINE SULFATE 10 MG/ML INJ ONE (10:14)
[2017-06-12] MEDS ORDERED: RINGERS SOLUTION,LACTATED 1,000 ML IV PRN (10:30)
--- NOTE | 2017-06-12 10:40 | PDOC PROGRESS REPORT ---
Subjective Progress Note for:: 06/12/17 Subjective:: The patient developed fever last night. Blood cultures and synovial fluid culture growing gram-positive cocci. There is no reported nausea or vomiting. Patient brought to operating room for drainage of knee effusion on the left. No reported diarrhea nor respiratory distress. Patient currently sedated in the recovery room postoperative. Physical Exam Vital Signs: Temp Pulse Resp BP Pulse Ox 99 F 124 H 20 113/64 100 06/12/17 09:39 06/12/17 10:09 06/12/17 10:09 06/12/17 10:09 06/12/17 10:09 Pulse Oximeter Continuous Start: 06/11/17 10: 25 Freq: RTQ4 Status: Active Document 06/12/17 04:17 [facility] (Rec: 06/12/17 04:18 [email or web address]) Pulse Oximetry Assessment Oxygen Saturation (92-100) 100 Oxygen Delivery Method Room Air Fraction of Inspired Oxygen (FIO2) 21 Equipment Usage Equipment in Use Continuous SpO2 Machine # [id number] Intake & Output 06/11/17 06/12/17 06/13/17 06:59 06:59 06:59 Intake Total 5481 6400 Output Total 800 6025 Balance 4681 375 Weight 60.9 kg General appearance: PRESENT: no acute distress, thin Head exam: PRESENT: normocephalic Eye exam: PRESENT: conjunctiva pale Mouth exam: PRESENT: moist, neck supple Neck exam: ABSENT: JVD Respiratory exam: PRESENT: clear to auscultation rei. ABSENT: rhonchi, wheezes Cardiovascular exam: PRESENT: RRR, tachycardia GI/Abdominal exam: PRESENT: hypoactive bowel sounds, soft. ABSENT: distended Extremities exam: PRESENT: other - Right BKA. Drainage on the knee noted to be sanguinous Neurological exam: PRESENT: altered Skin exam: PRESENT: dry, warm. ABSENT: cyanosis Results Laboratory Results: 06/12/17 04:55 06/12/17 04:55 06/11/17 06/11/17 06/11/17 16:30 16:30 22:30 WBC 6.2 RBC 3.72 Hgb 9.9 L Hct 29.7 L MCV 80 MCH 26.6 L MCHC 33.3 RDW 16.0 H Plt Count 65 L Seg Neutrophils % Not Reportable Lymphocytes % Not Reportable Monocytes % Not Reportable Eosinophils % Not Reportable Basophils % Not Reportable Absolute Neutrophils Not Reportable Absolute Lymphocytes Not Reportable Absolute Monocytes Not Reportable Absolute Eosinophils Not Reportable Absolute Basophils Not Reportable Sodium Potassium Chloride Carbon Dioxide Anion Gap BUN Creatinine Est GFR ( Amer) Est GFR (Non-Af Amer) Glucose Calcium Magnesium Albumin TSH Fluid Type SYNOVIAL SYNOVIAL Fluid Source KNEE LEFT KNEE Fluid Color RED Fluid Appearance HAZY Fluid Viscosity SLIGHTLY VISCOUS Fluid WBC 16399 Fluid RBC 46824 06/11/17 06/11/17 06/11/17 22:30 22:30 22:30 WBC RBC Hgb Hct MCV MCH MCHC RDW Plt Count Seg Neutrophils % Lymphocytes % Monocytes % Eosinophils % Basophils % Absolute Neutrophils Absolute Lymphocytes Absolute Monocytes Absolute Eosinophils Absolute Basophils Sodium 132.2 L Potassium 3.2 L Chloride 110 H Carbon Dioxide 14 L Anion Gap 8 BUN 20 Creatinine 0.82 Est GFR ( Amer) > 60 Est GFR (Non-Af Amer) > 60 Glucose 128 H Calcium 7.1 L Magnesium 1.4 L Albumin 2.5 L TSH 1.89 Fluid Type Fluid Source Fluid Color Fluid Appearance Fluid Viscosity Fluid WBC Fluid RBC 06/12/17 06/12/17 06/12/17 02:25 02:25 04:55 WBC 5.5 RBC 3.67 L Hgb 9.6 L Hct 29.2 L MCV 80 MCH 26.3 L MCHC 33.1 RDW 15.4 H Plt Count 59 L Seg Neutrophils % Not Reportable Lymphocytes % Not Reportable Monocytes % Not Reportable Eosinophils % Not Reportable Basophils % Not Reportable Absolute Neutrophils Not Reportable Absolute Lymphocytes Not Reportable Absolute Monocytes Not Reportable Absolute Eosinophils Not Reportable Absolute Basophils Not Reportable Sodium 134.5 L Potassium 3.5 L Chloride 110 H Carbon Dioxide 13 L Anion Gap 12 BUN 19 Creatinine 0.73 Est GFR ( Amer) > 60 Est GFR (Non-Af Amer) > 60 Glucose 109 Calcium 7.1 L Magnesium Albumin 2.5 L TSH Fluid Type Fluid Source Fluid Color Fluid Appearance Fluid Viscosity Fluid WBC Fluid RBC 06/12/17 06/12/17 04:55 04:55 WBC RBC Hgb Hct MCV MCH MCHC RDW Plt Count Seg Neutrophils % Lymphocytes % Monocytes % Eosinophils % Basophils % Absolute Neutrophils Absolute Lymphocytes Absolute Monocytes Absolute Eosinophils Absolute Basophils Sodium 134.3 L Potassium 3.4 L Chloride 109 H Carbon Dioxide 13 L Anion Gap 12 BUN 18 Creatinine 0.72 Est GFR ( Amer) > 60 Est GFR (Non-Af Amer) > 60 Glucose 101 Calcium 7.0 L* Magnesium 2.4 H D Albumin TSH Fluid Type Fluid Source Fluid Color Fluid Appearance Fluid Viscosity Fluid WBC Fluid RBC Impressions: Knee X-Ray 06/11/17 03:24 IMPRESSION: Moderate-large left knee effusion, larger than on prior radiographs from 02/02/2011. Chest X-Ray 06/11/17 07:07 IMPRESSION: Moderate right infrahilar pneumonia. Assessment & Plan - Diagnosis (1) Sepsis Qualifiers: Sepsis type: Streptococcus group A Qualified Code(s): A40.0 - Sepsis due to streptococcus, group A Is this a current diagnosis for this admission?: Yes (2) Pneumonia Qualifiers: Pneumonia type: due to unspecified organism Laterality: right Lung location: middle lobe of lung Qualified Code(s): J18.1 - Lobar pneumonia, unspecified organism (3) Abnormal urinalysis Is this a current diagnosis for this admission?: Yes (4) Effusion, left knee Is this a current diagnosis for this admission?: Yes (5) Crack cocaine use Is this a current diagnosis for this admission?: Yes (6) Anemia of chronic disease Is this a current diagnosis for this admission?: Yes (7) Essential hypertension Is this a current diagnosis for this admission?: Yes (8) Gastroesophageal reflux disease Qualifiers: Esophagitis presence: without esophagitis Qualified Code(s): K21.9 - Gastro -esophageal reflux disease without esophagitis Is this a current diagnosis for this admission?: Yes (9) Protein-calorie malnutrition, moderate Is this a current diagnosis for this admission?: Yes (10) SLE (systemic lupus erythematosus) Qualifiers: Systemic lupus erythematosus type: unspecified Systemic lupus erythematosus organ involvement: unspecified Qualified Code(s): M32.9 - Systemic lupus erythematosus, unspecified Is this a current diagnosis for this admission?: Yes (11) Vasculitis Is this a current diagnosis for this admission?: Yes - Time Time Spent with patient: 25-34 minutes - Plan Summary Plan Summary: Patient sepsis most likely due to septic arthritis. Follow cultures. Continue current antibiotic for now. Continue IV hydration. Replace electrolytes and recheck levels in the morning. Continue supportive care. Appreciate orthopedic help.
[2017-06-12] MEDS: DOCUSATE SODIUM 100 MG CAPSULE PO SCH ×2 (11:49→17:43)
[2017-06-12] MEDS: GUAIFENESIN 600 MG TABLET.SA PO SCH ×2 (11:49→21:47)
[2017-06-12] MEDS ORDERED: ENOXAPARIN SODIUM INJ 40 MG/0.4 ML DISP.SYRIN SUBCUT SCH (12:00)
[2017-06-12] MEDS: ACETAMINOPHEN 325 MG TABLET PO PRN ×2 (12:46→21:58)
[2017-06-12] MEDS ORDERED: POTASSIUM CHLORIDE 10 MEQ TABLET.SA PO ONE ×2 (17:39→18:00)
[2017-06-12] MEDS: VANCOMYCIN HCL 1,000 MG in DEXTROSE 5%-WATER 250 ML IV SCH (17:40)
[2017-06-13] MEDS: MORPHINE SULFATE 10 MG/ML INJ IV PRN ×2 (00:31→04:27)
--- NOTE | 2017-06-13 01:56 | PDOC TRANSFER SUMMARY ---
General Admission Date/PCP: 06/11/17 10:16 Resuscitation Status: Full Code - Transfer Diagnosis (1) Pneumonia involving right lung Is this a current diagnosis for this admission?: Yes (2) Crack cocaine use Is this a current diagnosis for this admission?: Yes (3) Septic arthritis of knee, left Is this a current diagnosis for this admission?: Yes (4) Starkey-Ruddy syndrome Is this a current diagnosis for this admission?: Yes (5) SLE (systemic lupus erythematosus) Is this a current diagnosis for this admission?: Yes - Transfer Medications Home Medications: Losartan Potassium [Cozaar 50 mg Tablet] 50 mg PO DAILY 06/11/17 Transfer Medications: Current Medications Acetaminophen (Tylenol 325 Mg Tablet) 650 mg PO Q4HP PRN PRN Reason: fever Stop: 07/11/17 10:15 Last Admin: 06/12/17 21:58 Dose: 650 mg Docusate Sodium (Colace 100 Mg Capsule) 100 mg PO BID [facility] Stop: 07/11/17 17:59 Last Admin: 06/12/17 17:43 Dose: 100 mg Enoxaparin Sodium (Lovenox Inj 40 Mg/0.4 Ml Disp.Syrin) 40 mg SUBCUT DAILY@ 1200 [facility] Stop: 07/12/17 11:59 Last Admin: 06/12/17 18:43 Dose: Not Given Guaifenesin (Mucinex Sr 600 Mg Tablet.Sa) 600 mg PO Q12 VIKTORIYA Stop: 07/11/17 21:59 Last Admin: 06/12/17 21:47 Dose: 600 mg Azithromycin 500 mg/ Dextrose 250 mls @ 250 mls/hr IV DAILY [facility] Stop: 06/19/17 09:59 Last Admin: 06/12/17 12:45 Dose: 500 mg Imipenem/Cilastatin Sodium 500 (mg/ Sodium Chloride) 100 mls @ 100 mls/hr IV Q6A [facility] Stop: 06/18/17 14:59 Last Admin: 06/12/17 21:47 Dose: 500 mg Vancomycin HCl 1,000 mg/ (Dextrose) 250 mls @ 166.667 mls/hr IV DAILY@1400 [facility] Stop: 06/18/17 13:59 Last Admin: 06/12/17 17:40 Dose: 1,000 mg Lactated Ringer's (Lactated Ringers 1000 Ml Iv Soln) 1,000 mls @ 120 mls/hr IV CONTINUOUS PRN PRN Reason: THIS MED IS NOT "PRN" Stop: 07/12/17 10:29 Last Admin: 06/13/17 00:14 Dose: 1,000 ml Lansoprazole (Prevacid 30 Mg Odt Tablet) 30 mg PO BID@0600,1700 [facility] Stop: 07/11/17 16:59 Last Admin: 06/12/17 17:43 Dose: 30 mg Levalbuterol HCl (Xopenex Neb 1.25 Mg/3 Ml Ampul) 1.25 mg NEB RTQ4HP PRN PRN Reason: SOB Stop: 07/11/17 10:23 Morphine Sulfate (Morphine 10 Mg/Ml Inj) 2 mg IV Q2HP PRN PRN Reason: PAIN UNRELIEVED BY OXYCODONE Stop: 06/20/17 00:15 Last Admin: 06/13/17 00:31 Dose: 2 mg Ondansetron HCl (Zofran Inj/Pf 4 Mg/2 Ml Sdv) 4 mg IV Q4HP PRN PRN Reason: FOR NAUSEA/VOMITING Stop: 07/11/17 10:21 Oxycodone HCl (Oxy-Ir 5 Mg Tablet) 5 mg PO Q6HP PRN PRN Reason: PAIN Stop: 06/18/17 10:29 Last Admin: 06/12/17 03:46 Dose: 5 mg Sodium Chloride (Saline Flush 2.5 Ml Monoject Prefil Syrin) 2.5 ml IV Q8 VIKTORIYA Stop: 07/11/17 13:59 Last Admin: 06/12/17 22:06 Dose: Not Given - Allergies Allergies/Adverse Reactions: amoxicillin [From Augmentin] Allergy (Verified 06/09/17 15:51) Generalized Itching cephalexin [From Keflex] Allergy (Verified 06/09/17 15:51) clavulanic acid [From Augmentin] Allergy (Verified 06/09/17 15:51) sulfamethoxazole [From Septra] Allergy (Verified 06/09/17 15:51) trimethoprim [From Septra] Allergy (Verified 06/09/17 15:51) Hospital Course Hospital Course: 41-year-old -[place] female, with underlying lupus, previous right below -knee amputation for infection, hypertension, drug abuse in the form of cocaine and marijuana use, history of lupus vasculitis, transferred to [facility] August 2015 for same, and history of hospitalization at [facility] in May of last year for Starkey-Ruddy syndrome, admitted on the of this month for pain and effusion involving the left knee. Workup also revealed right infrahilar pneumonia. Please refer to transcribed history and physical for more complete discussion of same Was taken to the operating room 06/12/2017 where she underwent arthrotomy with irrigation debridement of left septic knee. Please refer to transcribed operative note for more complete discussion of same. Preoperatively, she was persistently tachycardic, into the 130+ range, which did respond to IV fluids to an extent. Was also febrile. Aspiration of the left knee by orthopedics revealed group A beta Streptococcus, with similar organisms in both preoperative blood cultures. I was contacted by patient's floor nurse late evening of June 12, 2017, according to the nurse,, stating that patient was noted to have darkening of the tip of her nose, which was present to a slight extent upon admission. Also noted was darkening darkening of a number of her fingertips, darkening of her BKA stump and development of coolness involving her left foot. Darkened areas were all quite painful. Floor nurse contacted Dr. Leach re:above issues. I went to the patient's bedside shortly thereafter, with physical exam confirming the above findings. Right BKA stump was noted to be a dark violaceous color, possibly with one small blister. Warm, but rather tender to palpation, as were fingertips. Distal left foot was cool to touch, but has a palpable dorsalis pedis pulse. Slight soft tissue swelling of nares and lips, with perhaps early crusting, although no lorenza ulceration. Vital signs have remained stable in terms of blood pressure, with pulse rate actually slowly coming down to a more reasonable range. Current vital signs at 1:40 AM are 101/62. Pulse 113 and regular. 98% saturation on room air. Respirations are 21 and unlabored. Patient remains awake, alert, cooperative and in reasonably good spirits. Maintaining airway well. Shortly before midnight, I did discuss the patient with on-call general surgeon Dr. Lee, primarily concerning her somewhat cool left foot. With a palpable pulse, along with her other both acute and chronic problems, he did not feel that systemic anticoagulation is warranted. Of note, patient has rather diffuse patchy macular darkened areas on all 4 extremities and abdominal wall, all chronic in nature. 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 Being that we are a small community hospital, with neither rheumatology nor infectious disease coverage, decision was made to proceed with transfer to a tertiary center. Discussed with patient, who agreed. At 11:10 PM, June 12, 2017, I spoke with Dr. Mcginnis fuels engineer at [facility]. He felt the transfer was reasonable, but did not feel that patient warranted intensive care unit bed at [facility]. On-call hospitalist was paged. At 11:55 PM, June 12, I discussed patient with . She graciously accepted the patient in transfer, feeling that patient would need to go to an MIU bed. However, in speaking with the transfer center feed crusher operator on conference call, there were no beds currently available and no beds felt to be available for approximately 72 hours. Due to underlying infection, Dr. Contreras did not feel that steroids were advisable. 55 minutes critical care time spent in evaluation management of patient, including chart review, direct patient evaluation, multiple discussions with nursing staff, entering of multiple orders into the electronic health record, in above multiple telephone calls. I then spoke to transfer center at midnight at [facility]. Requested that the on-call hospitalist be paged. At 1:10 AM this morning, patient was discussed with , on-call hospitalist at [facility]. Patient was discussed in detail. She has graciously accepted the patient in transfer. She feels patient should go to their intensive care unit. I was notified at that time by the transfer center feed crusher operator that [facility] was at "surge capacity." Approximately 1:25 AM this morning I was notified by transfer center at [facility] that patient did indeed have a bed. Ground transport will not be available until almost noon on the , so patient will be transported by air. Destination of transport discussed with patient. She agrees. She remains stable for transport. Maintaining airway well, with no evidence of airway compromise. Nursing staff has been requested to please contact her aunt Marbella Foreman and notify her of patient's planned destination. At 12:10 AM this morning I did speak in lorenza layperson's terms with her aunt after receiving permission from patient to do same. Told her the patient was serious, that this condition can be life-threatening. She understood there were no beds at [facility], and at that time we were awaiting callback from the hospitalist at [facility] for possible transfer. Dressing taken down from left knee. Incision healing nicely, clean and dry. Drainage tube site likewise appears to be healing nicely. Flight crew arrived just before 7 AM this morning. Patient resting quietly. In good spirits. Vital signs are quite acceptable. Maintaining airway well. Remains stable for transport. Distal left foot remains cool, but easily palpable left dorsalis pedis pulse. 50 minutes critical care time spent in evaluation management of patient, including direct patient evaluation, multiple discussions with nursing staff, entering of multiple orders into the electronic health record, and above multiple telephone calls. Physical Exam Vital Signs: Temp Pulse Resp BP Pulse Ox 99.4 F 125 H 27 H 101/62 96 06/12/17 23:35 06/12/17 23:35 06/13/17 01:00 06/13/17 00:45 06/13/17 01:00 Pulse Oximeter Continuous Start: 06/11/17 10: 25 Freq: RTQ4 Status: Complete Document 06/12/17 19:38 EAL (Rec: 06/12/17 19:38 [email or web address] [email or web address]) Pulse Oximetry Assessment Oxygen Saturation (92-100) 99 Oxygen Delivery Method Room Air Fraction of Inspired Oxygen (FIO2) 21 Equipment Usage Equipment in Use Continuous SpO2 Machine # 7 Intake & Output 06/12/17 06/13/17 06/14/17 00:59 00:59 00:59 Intake Total 730 48558 Output Total 0076 Balance 696 6110 Weight 61.1 kg 53.1 kg Results Laboratory Results: 06/12/17 04:55 06/12/17 04:55 06/12/17 06/12/17 06/12/17 02:25 02:25 04:55 WBC 5.5 RBC 3.67 L Hgb 9.6 L Hct 29.2 L MCV 80 MCH 26.3 L MCHC 33.1 RDW 15.4 H Plt Count 59 L Seg Neutrophils % Not Reportable Lymphocytes % Not Reportable Monocytes % Not Reportable Eosinophils % Not Reportable Basophils % Not Reportable Absolute Neutrophils Not Reportable Absolute Lymphocytes Not Reportable Absolute Monocytes Not Reportable Absolute Eosinophils Not Reportable Absolute Basophils Not Reportable Sodium 134.5 L Potassium 3.5 L Chloride 110 H Carbon Dioxide 13 L Anion Gap 12 BUN 19 Creatinine 0.73 Est GFR ( Amer) > 60 Est GFR (Non-Af Amer) > 60 Glucose 109 Calcium 7.1 L Magnesium Albumin 2.5 L 06/12/17 06/12/17 04:55 04:55 WBC RBC Hgb Hct MCV MCH MCHC RDW Plt Count Seg Neutrophils % Lymphocytes % Monocytes % Eosinophils % Basophils % Absolute Neutrophils Absolute Lymphocytes Absolute Monocytes Absolute Eosinophils Absolute Basophils Sodium 134.3 L Potassium 3.4 L Chloride 109 H Carbon Dioxide 13 L Anion Gap 12 BUN 18 Creatinine 0.72 Est GFR ( Amer) > 60 Est GFR (Non-Af Amer) > 60 Glucose 101 Calcium 7.0 L* Magnesium 2.4 H D Albumin Impressions: Knee X-Ray 06/11/17 03:24 IMPRESSION: Moderate-large left knee effusion, larger than on prior radiographs from 02/02/2011. Chest X-Ray 06/11/17 07:07 IMPRESSION: Moderate right infrahilar pneumonia.
[2017-06-13] MEDS: IMIPENEM/CILASTATIN SODIUM 500 MG in NORMAL SALINE 100 ML IV SCH (02:10)
[2017-06-13 02:17] LABS: PROTHROMBIN TIME 16.4 SEC (11.4-15.4)
[2017-06-13 02:18] LABS: PARTIAL THROMBOPLASTIN TIME 38.1 SEC (23.5-35.8)
[2017-06-13 02:19] LABS: ALANINE AMINOTRANSFERASE 18 U/L (9-52); ALBUMIN 2.2 g/dL (3.5-5.0); ALKALINE PHOSPHATASE 49 U/L (38-126); ANION GAP 9 (5-19); ASPARTATE AMINO TRANSFERASE 25 U/L (14-36); BILIRUBIN,DIRECT 0.8 mg/dL (0.0-0.4); BLOOD UREA NITROGEN 17 mg/dL (7-20); CALCIUM 7.2 mg/dL (8.4-10.2); CARBON DIOXIDE 16 mmol/L (22-30); CHLORIDE 112 mmol/L (98-107); CREATININE RESULT 0.68 mg/dL (0.52-1.25); GLUCOSE 61 mg/dL (75-110); HEMATOCRIT 24.7 % (36.0-47.0); HEMOGLOBIN 8.4 g/dL (12.0-15.5); HGB HCT DIFFERENCE 0.5; MAGNESIUM 2.6 mg/dL (1.6-2.3); MEAN CORPUSCULAR HEMOGLOBIN 26.7 pg (27.0-33.4); MEAN CORPUSCULAR HGB CONC 33.8 g/dL (32.0-36.0); MEAN CORPUSCULAR VOLUME 79 fl (80-97); POTASSIUM 3.5 mmol/L (3.6-5.0); RED BLOOD COUNT 3.13 10^6/uL (3.72-5.28); RED CELL DISTRIBUTION WIDTH 15.4 % (11.5-14.0); SODIUM 136.7 mmol/L (137-145); TOTAL PROTEIN 5.7 g/dL (6.3-8.2); WHITE BLOOD COUNT 7.6 10^3/uL (4.0-10.5)
[2017-06-13 02:37] LABS: BAND NEUTROPHILS % (MANUAL) 21 % (3-5); BASOPHILS % (MANUAL) 0 % (0-2); EOSINOPHILS % (MANUAL) 0 % (0-6); LYMPHOCYTES % (MANUAL) 2 % (13-45); TOTAL CELLS COUNTED 100
[2017-06-13 02:43] LABS: HYPOCHROMASIA SLIGHT; MICROCYTOSIS SLIGHT; TOXIC GRANULATION 2+; TOXIC VACUOLATION PRESENT
[2017-06-13 02:44] LABS: ANISOCYTOSIS SLIGHT; OVALOCYTES 1+; POIKILOCYTOSIS 2+; TARGET CELLS 2+; TEAR DROP CELLS 1+
[2017-06-13 02:59] LABS: VENOUS BLOOD BASE EXCESS -7.6 mmol/L; VENOUS BLOOD HCO3 17.1 mmol/L (20-32); VENOUS BLOOD PCO2 31.5 mmHg (35-63); VENOUS BLOOD PH 7.35 (7.30-7.42)
[2017-06-13] MEDS ORDERED: POTASSI CL 20 MEQ/50 ML RIDER 20 MEQ/50 ML RTUPB IV ONE (04:00)
[2017-06-13] MEDS ORDERED: DEXTROSE 5%-LACTATED RINGERS 1,000 ML IV PRN (04:33)
[2017-06-13] MEDS: LANSOPRAZOLE 30 MG TAB.RAP.DR PO SCH (05:48)
[2017-06-13 06:16] VITALS: BP 103/62
== END 2017-06-13 07:22 | disposition short-term general hospital (02) | DRG 853 ==
LOC: ER 03:01 → EH 08:30 → UNDOADMIN 08:30 → 4N 09:57 → EH 09:57 → 4N 10:16 → ICU 06-12 23:38
PROC: 0S9D00Z Drainage of Left Knee Joint with Drainage Device, Open Approach (ICD-10-PCS; 2017-06-12)
PROC: 0JDP0ZZ Extraction of Left Lower Leg Subcutaneous Tissue and Fascia, Open Approach (ICD-10-PCS; principal; 2017-06-12 08:30)
DX: A40.0 Sepsis due to streptococcus, group A (principal); J18.1 Lobar pneumonia, unspecified organism; L51.1 Stevens-Johnson syndrome; M00.262 Other streptococcal arthritis, left knee; E44.0 Moderate protein-calorie malnutrition; I12.9 Hypertensive chronic kidney disease with stage 1 through stage 4 chronic kidney disease, or unspecified chronic kidney disease; N18.9 Chronic kidney disease, unspecified; M32.9 Systemic lupus erythematosus, unspecified; I73.9 Peripheral vascular disease, unspecified; D64.9 Anemia, unspecified; F14.10 Cocaine abuse, uncomplicated; F12.10 Cannabis abuse, uncomplicated; B95.0 Streptococcus, group A, as the cause of diseases classified elsewhere; Z89.511 Acquired absence of right leg below knee; Z68.21 Body mass index [BMI] 21.0-21.9, adult
CPT/HCPCS: 00400; 36415; 71010; 80048; 80053; 80076; 80307; 81001; 82040; 82803; 82962; 83605; 83735; 84443; 84550; 84703; 85025; 85610; 85652; 85730; 86140; 86850; 86900; 86901; 87040; 87070; 87075; 87077; 87086; 87186; 87205; 89050; 89060; 93005; 93010; 94762; 96361; 96365; 96375; 99285; J0456; J0743; J1885; J2250; J2270; J2405; J2704; J3010; J3370; J3411; J3475; J3480; J3490; J7030; J7040; J7060; J7120

== ENCOUNTER 2017-08-28 13:04 | Inpatient (IN) | payer MEDICAID, OTHER ==
--- NOTE | 2017-08-15 13:52 | ER Document Report ---
ED Medical Screen (RME) - General Chief Complaint: Wound Infection Stated Complaint: RIGHT LEG PAIN Time Seen by Provider: 08/15/17 13:22 Mode of Arrival: Wheelchair Information source: Patient TRAVEL OUTSIDE OF THE [place] IN LAST 30 DAYS: No - HPI Patient complains to provider of: Right AKA pain and swelling Notes: 08/15/17 13:51 Patient is a 42-year-old female with bilateral AKA, coming in today complaining of pain and swelling to the right AKA that has been going on for the past few days, she was recently discharged from acute rehab to home, otherwise she reports feeling lightheaded and unwell - Related Data Allergies/Adverse Reactions: amoxicillin [From Augmentin] Allergy (Verified 06/09/17 15:51) Generalized Itching cephalexin [From Keflex] Allergy (Verified 06/09/17 15:51) clavulanic acid [From Augmentin] Allergy (Verified 06/09/17 15:51) sulfamethoxazole [From Septra] Allergy (Verified 06/09/17 15:51) trimethoprim [From Septra] Allergy (Verified 06/09/17 15:51) Past Medical History - Past Medical History Cardiac Medical History: Reports: Hx Hypertension Renal/ Medical History: Reports: Hx End Stage Renal Disease. Denies: Hx Peritoneal Dialysis GI Medical History: Reports: Hx Gastroesophageal Reflux Disease Musculoskeltal Medical History: Reports Hx Arthritis - lupus Past Surgical History: Reports: Hx Section - 3, Hx Orthopedic Surgery - right bka, Other - Previous wound debridements - Immunizations Immunizations up to date: Yes Hx Diphtheria, Pertussis, Tetanus Vaccination: Yes Physical Exam - Vital signs Vitals: Temp Pulse Resp BP Pulse Ox 98.5 F 101 H 22 H 131/87 H 99 08/15/17 13:09 08/15/17 13:09 08/15/17 13:09 08/15/17 13:09 08/15/17 13:09 Course - Vital Signs Vital signs: Temp Pulse Resp BP Pulse Ox 98.5 F 101 H 22 H 131/87 H 99 08/15/17 13:09 08/15/17 13:09 08/15/17 13:09 08/15/17 13:09 08/15/17 13:09
[2017-08-15 14:21] LABS: ABSOLUTE EOSINOPHILS # (AUTO) 0.1 10^3/uL (0.0-0.6); ABSOLUTE MONOCYTES (AUTO) 0.6 10^3/uL (0.1-1.4); BASOPHILS % (AUTO) 0.8 % (0-2); EOSINOPHILS % (AUTO) 1.2 % (0-6); HEMATOCRIT 28.7 % (36.0-47.0); HEMOGLOBIN 9.8 g/dL (12.0-15.5); LYMPHOCYTES % (AUTO) 17.3 % (13-45); MEAN CORPUSCULAR HEMOGLOBIN 27.1 pg (27.0-33.4); MEAN CORPUSCULAR VOLUME 80 fl (80-97); MONOCYTES % (AUTO) 10.6 % (3-13); PLATELET COUNT 258 10^3/uL (150-450); RED CELL DISTRIBUTION WIDTH 17.6 % (11.5-14.0); SEGMENTED NEUTROPHILS % (AUTO) 70.1 % (42-78); TOTAL CELLS COUNTED % (AUTO) 100 %; WHITE BLOOD COUNT 5.7 10^3/uL (4.0-10.5)
--- NOTE | 2017-08-15 14:41 | ER Document Report ---
ED General - General Mode of Arrival: Wheelchair Information source: Patient TRAVEL OUTSIDE OF THE [place] IN LAST 30 DAYS: No - HPI Onset: Other - Refer to HPI notes <DAY LORD - Last Filed: 08/15/17 14:55> <MAXINE AVENDANO - Last Filed: 08/15/17 19:18> - General Chief Complaint: Wound Infection Stated Complaint: RIGHT LEG PAIN Time Seen by Provider: 08/15/17 13:22 Notes: Patient is a 42 year old female presenting to the emergency department for pain and swelling to her right AKA that was onset today. Patient states that she was at a rehab facility in [place], [place]. Patient signed herself out of this facility yesterday so she could go home for her birthday. Patient states that she does not want to return to this facility because it is too far away from her home. Patient was taking oxycodone 10 mg while she was at the rehab facility. Patient also complains of lightheadedness, fever and chills. Patient was transferred to [facility] on 06/13/17 and around the first part of June 2017 the patient had bilateral AKAs due to ulcerations. Patient's left AKA is healed and the right is now a chronic draining wound. (DAY LORD) The patient's lab work is unremarkable. I suspect the onset of her pain today is because she did not have access to the narcotics she was receiving at the rehab facility. She does have a long history of crack cocaine abuse, and her urine drug screen is positive for cocaine again today, so that must have been the birthday present provided to her when she came home for her birthday last night. The wound actually looks quite well, the drainage does not have a bad odor. White blood cell count does not suggest an infectious problem or cellulitis. ( MAXINE AVENDANO) - Related Data Allergies/Adverse Reactions: amoxicillin [From Augmentin] Allergy (Verified 06/09/17 15:51) Generalized Itching cephalexin [From Keflex] Allergy (Verified 06/09/17 15:51) clavulanic acid [From Augmentin] Allergy (Verified 06/09/17 15:51) sulfamethoxazole [From Septra] Allergy (Verified 06/09/17 15:51) trimethoprim [From Septra] Allergy (Verified 06/09/17 15:51) Past Medical History - General Information source: Patient - Social History Smoking Status: Never Smoker Cigarette use (# per day): No Chew tobacco use (# tins/day): No Smoking Education Provided: No Frequency of alcohol use: None Drug Abuse: Cocaine Family History: Hypertension Patient has suicidal ideation: No Patient has homicidal ideation: No - Past Medical History Cardiac Medical History: Reports: Hx Hypertension Renal/ Medical History: Reports: Hx End Stage Renal Disease GI Medical History: Reports: Hx Gastroesophageal Reflux Disease Musculoskeltal Medical History: Reports Other - Lupus Past Surgical History: Reports: Hx Section - 3, Hx Orthopedic Surgery - bilateral AKAs June 2017, Other - Previous wound debridements to bilateral knees - Immunizations Immunizations up to date: Yes Hx Diphtheria, Pertussis, Tetanus Vaccination: Yes <DAY LORD - Last Filed: 08/15/17 14:55> Review of Systems - Review of Systems Constitutional: See HPI, Chills, Fever EENT: No symptoms reported Cardiovascular: See HPI, Lightheaded Respiratory: No symptoms reported Gastrointestinal: No symptoms reported Genitourinary: No symptoms reported Female Genitourinary: No symptoms reported Musculoskeletal: See HPI, Other Skin: See HPI, Other Hematologic/Lymphatic: No symptoms reported Neurological/Psychological: No symptoms reported -: Yes All other systems reviewed and negative <DAY LORD - Last Filed: 08/15/17 14:55> Physical Exam - Vital signs Interpretation: Normal - General General appearance: Appears well, Alert In distress: Mild - HEENT Head: Normocephalic, Atraumatic Eyes: Normal Pupils: PERRL Mucous membranes: Moist - Respiratory Respiratory status: No respiratory distress Chest status: Nontender Breath sounds: Normal Chest palpation: Normal - Cardiovascular Rhythm: Regular Heart sounds: Normal auscultation Murmur: No - Abdominal Inspection: Normal Distension: No distension Bowel sounds: Normal Tenderness: Nontender Organomegaly: No organomegaly - Back Back: Normal - Extremities General upper extremity: Normal inspection, Normal ROM, Normal strength General lower extremity: Other - bilateral AKAs, left AKA is healed, right thigh is larger than the left and there is an open draining wound, drainage is odorless - Neurological Neuro grossly intact: Yes Cognition: Normal Orientation: AAOx4 Santy Coma Scale Eye Opening: Spontaneous [place] Coma Scale Verbal: Oriented [place] Coma Scale Motor: Obeys Commands [place] Coma Scale Total: 15 Speech: Normal - Psychological Associated symptoms: Normal affect, Normal mood - Skin Skin Temperature: Warm Skin Moisture: Dry <DAY LORD - Last Filed: 08/15/17 14:55> <MAXINE AVENDANO - Last Filed: 08/15/17 19:18> - Vital signs Vitals: Temp Pulse Resp BP Pulse Ox 98.5 F 101 H 22 H 131/87 H 99 08/15/17 13:09 08/15/17 13:09 08/15/17 13:09 08/15/17 13:09 08/15/17 13:09 Course - Laboratory Result Diagrams: 08/15/17 14:00 08/15/17 14:00 <DAY LORD - Last Filed: 08/15/17 14:55> - Laboratory Result Diagrams: 08/15/17 14:00 08/15/17 14:00 - Diagnostic Test Radiology reviewed: Image reviewed, Reports reviewed - Postop right AKA no abnormalities - Transfer of Care Care transferred to following provider: Dr. Curran <MAXINE AVENDANO - Last Filed: 08/15/17 19:18> - Re-evaluation Re-evalutation: 08/15/17 16:58 The patient does feel much better after her pain medication. She agrees that the pain this morning very likely was due to her being out of pain medication and not in her facility for treatment. She is reassured that her lab work does not suggest an infectious process and the wound did not look bad. She is agreeable to making arrangements to return to her rehab facility for her continued care. 08/15/17 19:12 The nurse informs me that when she was in discussing possible discharge home with the patient and her family members, the family members left and cannot be contacted now. The patient appears to be stuck here in the emergency room on a social hold until tomorrow when licensed social worker can get involved, unless they are able to get the family members to answer the phone or call back. (MAXINE AVENDANO) - Vital Signs Vital signs: Temp Pulse Resp BP Pulse Ox 98.5 F 85 14 99/74 L 99 08/15/17 13:09 08/15/17 18:55 08/15/17 18:55 08/15/17 18:55 08/15/17 18:55 - Laboratory Laboratory results interpreted by me: 08/15/17 08/15/17 14:00 14:00 RBC 3.60 L Hgb 9.8 L Hct 28.7 L RDW 17.6 H Carbon Dioxide 20 L BUN 28 H Total Protein 9.8 H - Transfer of Care Notes: 08/15/17 19:17 Patient's family left and cannot be contacted to come get the patient at this time. She will remain here on a social hold until tomorrow when licensed social worker can get involved and facilitate getting her back to her rehab facility in [place], [place]. (MAXINE AVENDANO) Discharge <DAY LORD - Last Filed: 08/15/17 14:55> <MAXINE AVENDANO - Last Filed: 08/15/17 19:18> - Discharge Clinical Impression: Right AKA stump pain, Has run out of pain medication, Cocaine abuse Condition: Stable Disposition: HOME, SELF-CARE Additional Instructions: Your lab work today does not suggest you have an infectious process going on. You should make arrangements today to return to the rehab facility today so that you can continue to get your medications. RETURN TO THE EMERGENCY ROOM IF ANY NEW OR WORSENING SYMPTOMS. Scribe Attestation: 08/15/17 17:00 I personally performed the services described in the documentation, reviewed and edited the documentation which was dictated to the scribe in my presence, and it accurately records my words and actions. (MAXINE AVENDANO) Scribe Documentation - Scribe Written by Serene:: Serene Melgar 08/15/2017 15:11 acting as scribe for :: [place] <DAY LORD - Last Filed: 08/15/17 14:55>
[2017-08-15 14:42] LABS: ALANINE AMINOTRANSFERASE 46 U/L (9-52); ALBUMIN 4.7 g/dL (3.5-5.0); ALKALINE PHOSPHATASE 85 U/L (38-126); ANION GAP 17 (5-19); ASPARTATE AMINO TRANSFERASE 32 U/L (14-36); BILIRUBIN,DIRECT 0.2 mg/dL (0.0-0.4); BILIRUBIN,TOTAL 0.4 mg/dL (0.2-1.3); BLOOD UREA NITROGEN 28 mg/dL (7-20); CALCIUM 9.5 mg/dL (8.4-10.2); CARBON DIOXIDE 20 mmol/L (22-30); CHLORIDE 103 mmol/L (98-107); GLUCOSE 91 mg/dL (75-110); POTASSIUM 4.4 mmol/L (3.6-5.0); SODIUM 139.9 mmol/L (137-145); TOTAL PROTEIN 9.8 g/dL (6.3-8.2)
--- NOTE | 2017-08-15 14:59 | RADIOLOGY REPORT (SQ) ---
EXAM DESCRIPTION: FEMUR RIGHT COMPLETED DATE/TIME: 08/15/2017 2:29 pm REASON FOR STUDY: AKA pain/swelling COMPARISON: None. NUMBER OF VIEWS: Two views. TECHNIQUE: Two radiographic images acquired of the right femur to include hip and knee in at least o ne projection. LIMITATIONS: None. FINDINGS: MINERALIZATION: Normal. BONES: No acute fracture. Postop amputation. No worrisome bone lesions. SOFT TISSUES: No obvious swelling or foreign body. OTHER: No other significant finding. IMPRESSION: POSTOP AMPUTATION. NO ABNORMAL RADIOGRAPHIC FINDINGS. TECHNICAL DOCUMENTATION: JOB ID: [id number] [employer]- All Rights Reserved
[2017-08-15 15:55] LABS: APPEARANCE,URINE CLEAR; BILIRUBIN,URINE NEGATIVE (NEGATIVE); COLOR,URINE YELLOW; GLUCOSE, URINE NEGATIVE (NEGATIVE); KETONES,URINE NEGATIVE (NEGATIVE); LEUKOCYTE ESTERASE,URINE NEGATIVE (NEGATIVE); NITRITE,URINE NEGATIVE (NEGATIVE); PROTEIN,URINE NEGATIVE (NEGATIVE); URINE SPECIFIC GRAVITY 1.018; UROBILINOGEN,URINE NEGATIVE mg/dL (<2.0)
[2017-08-15 16:10] LABS: URINE AMPHETAMINES SCREEN NEGATIVE; URINE BARBITURATES SCREEN NEGATIVE; URINE BENZODIAZEPINES SCREEN NEGATIVE; URINE COCAINE SCREEN UNCONFIRMED POSITIVE; URINE MARIJUANA (THC) SCREEN NEGATIVE; URINE METHADONE SCREEN NEGATIVE; URINE PHENCYCLIDINE SCREEN NEGATIVE
[2017-08-15] MEDS: OXYCODONE-ACETAMINOPHEN 5-325 MG TABLET PO PRN (23:20)
[2017-08-16] MEDS: OXYCODONE-ACETAMINOPHEN 5-325 MG TABLET PO PRN ×3 (05:22→17:45)
[2017-08-17] MEDS: OXYCODONE-ACETAMINOPHEN 5-325 MG TABLET PO PRN ×5 (06:01→23:52)
--- NOTE | 2017-08-17 09:26 | ER Document Report ---
ED Medical Screen (RME) - General Chief Complaint: Wound Infection Stated Complaint: RIGHT LEG PAIN Time Seen by Provider: 08/15/17 13:22 Mode of Arrival: Wheelchair Notes: This is a patient that apparently has been in and out of hospitals for the better part of 3-4 months. Checked herself out of a rehab facility for her birthday. Now cannot get back into facility. No family members or support. Patient came here. Please see previous physician's notes for further details on HPI. Patient denies any complaints at this time. States that she feels fine but would like some Tylenol for breakthrough pain if possible. Of note, patient states that she was on blood thinners while she was in the hospital but has not been on blood thinners for the last month while she was in the rehab facility. TRAVEL OUTSIDE OF THE [place] IN LAST 30 DAYS: No - Related Data Allergies/Adverse Reactions: amoxicillin [From Augmentin] Allergy (Verified 06/09/17 15:51) Generalized Itching cephalexin [From Keflex] Allergy (Verified 06/09/17 15:51) clavulanic acid [From Augmentin] Allergy (Verified 06/09/17 15:51) sulfamethoxazole [From Septra] Allergy (Verified 06/09/17 15:51) trimethoprim [From Septra] Allergy (Verified 06/09/17 15:51) Home Medications: Current Home Medications Acetaminophen [Pain Relief] 650 mg PO Q6H 08/16/17 [History] Famotidine [Pepcid 10 mg Tablet] 10 mg PO BID 08/16/17 [History] Fluoxetine HCl [Prozac 20 mg Capsule] 60 mg PO DAILY 08/16/17 [History] Gabapentin 1,200 mg PO TID 08/16/17 [History] Ibuprofen [Motrin 400 mg Tablet] 400 mg PO TID 08/16/17 [History] Multivitamin [Multiple Vitamins] 1 each PO DAILY 08/16/17 [History] Olanzapine 2.5 mg PO QHS 08/16/17 [History] Ondansetron HCl [Zofran 4 mg Tablet] 1 tab PO Q6H PRN 08/16/17 [History] Oxycodone HCl 5 mg PO Q6H PRN 08/16/17 [History] Trazodone HCl 100 mg PO QHS 10/30/17 [History] Past Medical History - Social History Cigarette use (# per day): No Chew tobacco use (# tins/day): No Frequency of alcohol use: None Drug Abuse: Cocaine - Past Medical History Cardiac Medical History: Reports: Hx Hypertension Renal/ Medical History: Reports: Hx End Stage Renal Disease. 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 Bilateral bnmbg-jwo-ecfr amputations Skin: No symptoms reported Hematologic/Lymphatic: No symptoms reported, Blood clots Neurological/Psychological: No symptoms reported Physical Exam - Vital signs Vitals: Temp Pulse Resp BP Pulse Ox 98.5 F 101 H 22 H 131/87 H 99 08/15/17 13:09 08/15/17 13:09 08/15/17 13:09 08/15/17 13:09 08/15/17 13:09 Interpretation: Normal - General General appearance: Appears well, Alert - HEENT Head: Normocephalic, Atraumatic Eyes: Normal Pupils: PERRL - Respiratory Respiratory status: No respiratory distress Chest status: Nontender Breath sounds: Normal Chest palpation: Normal - Cardiovascular Rhythm: Regular Heart sounds: Normal auscultation Murmur: No - Abdominal Inspection: Normal Distension: No distension Bowel sounds: Normal Tenderness: Nontender Organomegaly: No organomegaly - Back Back: Normal, Nontender - Extremities General upper extremity: Normal inspection, Nontender, Normal color, Normal ROM , Normal temperature General lower extremity: Other - She has bilateral cvaop-qyj-niun amputations. There is a dressing on the right stump. Healing scar on the left stump. There is a bandaged finger on the left hand the fourth digit distal. There are a few small subungual hematoma looking areas on the bilateral fingers.. No: Lida's sign - Neurological Neuro grossly intact: Yes Cognition: Normal Orientation: AAOx4 [place] Coma Scale Eye Opening: Spontaneous [place] Coma Scale Verbal: Oriented [place] Coma Scale Motor: Obeys Commands [place] Coma Scale Total: 15 Speech: Normal Motor strength normal: LUE, RUE, LLE, RLE Sensory: Normal - Psychological Associated symptoms: Normal affect, Normal mood - Skin Skin Temperature: Warm Skin Moisture: Dry Skin Color: Normal Course - Re-evaluation Re-evalutation: 08/17/17 09:26 Continue to follow. Hopefully social work associate will be able to find her placement soon. In the meantime will follow her regular medication schedule. 08/17/17 14:13 Rosa was evaluated prior to d/c . Stable for d/c at this time - Vital Signs Vital signs: Temp Pulse Resp BP Pulse Ox 98.3 F 90 16 126/76 H 100 08/17/17 06:50 08/17/17 06:50 08/17/17 06:50 08/17/17 06:50 08/17/17 06:50 - Laboratory Result Diagrams: 08/15/17 14:00 08/15/17 14:00 Laboratory results interpreted by me: 08/15/17 08/15/17 14:00 14:00 RBC 3.60 L Hgb 9.8 L Hct 28.7 L RDW 17.6 H Carbon Dioxide 20 L BUN 28 H Total Protein 9.8 H Doctor's Discharge - Discharge Clinical Impression: Right AKA stump pain, Has run out of pain medication, Cocaine abuse Condition: Stable Disposition: HOME, SELF-CARE Additional Instructions: Your lab work today does not suggest you have an infectious process going on. You should make arrangements today to return to the rehab facility today so that you can continue to get your medications. RETURN TO THE EMERGENCY ROOM IF ANY NEW OR WORSENING SYMPTOMS.
[2017-08-18] MEDS: OXYCODONE-ACETAMINOPHEN 5-325 MG TABLET PO PRN ×3 (07:07→20:00)
--- NOTE | 2017-08-18 11:52 | ER Document Report ---
Doctor's Note Notes: 08/18/17 11:52 Patient has been seen and evaluated resting comfortably no acute distress. Laboratory values previous provider note and vital signs have been evaluated. Patient otherwise looks to be stable for disposition/transfer.
[2017-08-19] MEDS: OXYCODONE-ACETAMINOPHEN 5-325 MG TABLET PO PRN ×4 (00:24→21:10)
--- NOTE | 2017-08-19 08:53 | ER Document Report ---
ED General - General Chief Complaint: Wound Infection Stated Complaint: RIGHT LEG PAIN Time Seen by Provider: 08/15/17 13:22 Mode of Arrival: Wheelchair TRAVEL OUTSIDE OF THE [place] IN LAST 30 DAYS: No - Related Data Allergies/Adverse Reactions: amoxicillin [From Augmentin] Allergy (Verified 06/09/17 15:51) Generalized Itching cephalexin [From Keflex] Allergy (Verified 06/09/17 15:51) clavulanic acid [From Augmentin] Allergy (Verified 06/09/17 15:51) sulfamethoxazole [From Septra] Allergy (Verified 06/09/17 15:51) trimethoprim [From Septra] Allergy (Verified 06/09/17 15:51) Home Medications: Current Home Medications Acetaminophen [Pain Relief] 650 mg PO Q6H 08/16/17 [History] Famotidine [Pepcid 10 mg Tablet] 10 mg PO BID 08/16/17 [History] Fluoxetine HCl [Prozac 20 mg Capsule] 60 mg PO DAILY 08/16/17 [History] Gabapentin 1,200 mg PO TID 08/16/17 [History] Ibuprofen [Motrin 400 mg Tablet] 400 mg PO TID 08/16/17 [History] Multivitamin [Multiple Vitamins] 1 each PO DAILY 08/16/17 [History] Olanzapine 2.5 mg PO QHS 08/16/17 [History] Ondansetron HCl [Zofran 4 mg Tablet] 1 tab PO Q6H PRN 08/16/17 [History] Oxycodone HCl 5 mg PO Q6H PRN 08/16/17 [History] Trazodone HCl 100 mg PO QHS 08/16/17 [History] Past Medical History - General Information source: Patient - Social History Smoking Status: Never Smoker Cigarette use (# per day): No Chew tobacco use (# tins/day): No Frequency of alcohol use: None Drug Abuse: Cocaine Family History: Hypertension Patient has suicidal ideation: No Patient has homicidal ideation: No - Past Medical History Cardiac Medical History: Reports: Hx Hypertension Renal/ Medical History: Reports: Hx End Stage Renal Disease. Denies: Hx Peritoneal Dialysis GI Medical History: Reports: Hx Gastroesophageal Reflux Disease Musculoskeltal Medical History: Reports Hx Arthritis - lupus, Reports Other - Lupus Past Surgical History: Reports: Hx Section - 3, Hx Orthopedic Surgery - bilateral AKAs June 2017, Other - Previous wound debridements to bilateral knees - Immunizations Immunizations up to date: Yes Hx Diphtheria, Pertussis, Tetanus Vaccination: Yes Physical Exam - Vital signs Vitals: Temp Pulse Resp BP Pulse Ox 98.5 F 101 H 22 H 131/87 H 99 08/15/17 13:09 08/15/17 13:09 08/15/17 13:09 08/15/17 13:09 08/15/17 13:09 Course - Re-evaluation Re-evalutation: 08/19/17 08:53 Saw patient in morning rounds for psychiatric patients. Pending psych disposition. No overnight events. No nursing requests or urgent needs. On exam the patient is resting comfortably with no issues. - Vital Signs Vital signs: Temp Pulse Resp BP Pulse Ox 97.8 F 94 20 124/76 100 08/19/17 05:50 08/19/17 05:50 08/19/17 05:50 08/19/17 05:50 08/19/17 05:50 - Laboratory Result Diagrams: 08/15/17 14:00 08/15/17 14:00 Laboratory results interpreted by me: 08/15/17 08/15/17 14:00 14:00 RBC 3.60 L Hgb 9.8 L Hct 28.7 L RDW 17.6 H Carbon Dioxide 20 L BUN 28 H Total Protein 9.8 H Discharge - Discharge Clinical Impression: Right AKA stump pain, Has run out of pain medication, Cocaine abuse Condition: Stable Disposition: HOME, SELF-CARE Additional Instructions: Your lab work today does not suggest you have an infectious process going on. You should make arrangements today to return to the rehab facility today so that you can continue to get your medications. RETURN TO THE EMERGENCY ROOM IF ANY NEW OR WORSENING SYMPTOMS. Scribe Attestation: 08/15/17 17:00 I personally performed the services described in the documentation, reviewed and edited the documentation which was dictated to the scribe in my presence, and it accurately records my words and actions.
[2017-08-20] MEDS: OXYCODONE-ACETAMINOPHEN 5-325 MG TABLET PO PRN ×4 (04:59→23:36)
--- NOTE | 2017-08-20 10:38 | ER Document Report ---
Doctor's Note Notes: 08/20/17 10:37 Social rounds: Patient awaiting disposition. Has no complaints. Appears to be stable. Vital signs are all essentially normal. Ave Elizalde MD
[2017-08-21] MEDS: OXYCODONE-ACETAMINOPHEN 5-325 MG TABLET PO PRN ×3 (06:32→18:28)
--- NOTE | 2017-08-21 10:22 | ER Document Report ---
Doctor's Note Notes: 08/21/17 10:21 Rounds: Chart reviewed and patient interviewed. Patient is very pleasant. No complaints. Vital signs are all essentially normal. No labs to review. Patient is awaiting placement. Ave Elizalde MD
[2017-08-22] MEDS: OXYCODONE-ACETAMINOPHEN 5-325 MG TABLET PO PRN ×4 (00:26→19:03)
--- NOTE | 2017-08-22 06:12 | ER Document Report ---
Doctor's Note Notes: 08/22/17 06:11 The nurse has become with the patient's topic she says there is some abnormal drainage when she change the dressing. The stump itself looks good. Is not erythematous or inflamed. She does have some greenish type discharge on the dressing that she pulled off. I cannot express any further discharge him to stop itself. The discharge is a little bit concerning even though the stump looks well. I feel is appropriate to start her on antibiotic in case this is beginning of infection. Her vital signs are otherwise stable. I will start her on clindamycin.
--- NOTE | 2017-08-22 11:06 | ER Document Report ---
Doctor's Note Notes: 08/22/17 11:05 Patient is alert, oriented in no acute distress. No complaints at this time. Patient was taking a sink bath when I went in the room so will check on her later. We will continue to monitor and await social placement.
[2017-08-23] MEDS: CLINDAMYCIN HCL 150 MG CAPSULE PO SCH ×4 (00:31→17:50)
[2017-08-23] MEDS: OXYCODONE-ACETAMINOPHEN 5-325 MG TABLET PO PRN ×4 (01:05→21:31)
--- NOTE | 2017-08-23 20:02 | ER Document Report ---
Doctor's Note Notes: 08/23/17 20:02 Social note provider rounds: This is an unfortunate 42-year-old female with a history of vasculitis status post bilateral AKA's. Patient had recently taken herself out of the rehab facility and had difficulty getting back in. She presented to the emergency room on August 15 with right stump swelling. Labs showed a normal white count and the x-ray was essentially unremarkable. There was some discharge from the right stump and she has been treated with wet-to-dry dressings. She was started on oral clindamycin on August 22. On physical exam, the patient is alert and oriented 3 and quite pleasant. She is conversant and in no distress. On review of her stumps, she does have a small area of new discharge to the left AKA stump. I do not see any expressible pus. The patient is already on oral clindamycin. I have advised for daily wet to dry dressing changes with some bacitracin.
[2017-08-24] MEDS: CLINDAMYCIN HCL 150 MG CAPSULE PO SCH ×5 (00:06→22:55)
[2017-08-24] MEDS: OXYCODONE-ACETAMINOPHEN 5-325 MG TABLET PO PRN ×4 (04:18→22:55)
--- NOTE | 2017-08-24 17:40 | ER Document Report ---
Doctor's Note Notes: 08/24/17 17:39 In no acute distress at this time. Still waiting on social work to do their thing. Called the hospitalist to see if I can get patient admitted in order to have her social issues taken care of by the inpatient team and her medical needs cared for by the brick offbearer and that was refused.
[2017-08-25] MEDS: CLINDAMYCIN HCL 150 MG CAPSULE PO SCH ×2 (10:28→19:31)
[2017-08-25] MEDS: OXYCODONE-ACETAMINOPHEN 5-325 MG TABLET PO PRN ×2 (10:29→19:29)
--- NOTE | 2017-08-25 10:47 | ER Document Report ---
Doctor's Note Notes: 08/25/17 10:46 Rounds: Chart reviewed and patient interviewed. Patient is being kept in the emergency department, because we cannot find placement elsewhere. Patient is very pleasant and cooperative and interactive. Vital signs were all essentially normal. Patient appears to be medically stable for transfer or discharge. Ave Elizalde MD
[2017-08-26] MEDS: OXYCODONE-ACETAMINOPHEN 5-325 MG TABLET PO PRN ×4 (01:41→20:52)
[2017-08-26] MEDS: CLINDAMYCIN HCL 150 MG CAPSULE PO SCH ×4 (01:42→18:04)
--- NOTE | 2017-08-26 10:40 | ER Document Report ---
Doctor's Note Notes: 08/26/17 10:38 Social Rounds: Chart reviewed and patient interviewed. Patient is very pleasant , as she is always been, and has no complaints or requests. I did report to the patient that culture done of her leg wounds on August 24 showed no growth after 1 day. Prior two cultures done on August 15 are negative at 5 days. Still awaiting placement somewhere. Ave Elizalde MD
[2017-08-27] MEDS: CLINDAMYCIN HCL 150 MG CAPSULE PO SCH ×2 (00:30→05:15)
[2017-08-27] MEDS: OXYCODONE-ACETAMINOPHEN 5-325 MG TABLET PO PRN ×3 (06:12→20:37)
--- NOTE | 2017-08-27 10:45 | ER Document Report ---
Doctor's Note Notes: 08/27/17 11:09 This is a 42-year-old female here in the emergency department for quite some time now waiting on a [facility] placement. Patient has bilateral above-the- knee amputations. A few days ago there was drainage noted coming out of the left stump. This was cultured. Culture results were returned yesterday which showed pseudomonas aeruginosa. Based on sensitivities will stop the clindamycin and start her on Cipro 500 mg twice a day. I did examine the patient. There is still serosanguineous drainage coming out of the left knee. It appears more like synovial fluid but based on a positive culture will need to continue to treat for some time. It is possible that orthopedics may need to get involved if any symptoms get worse. Based on the positive culture to we will get a CBC on her today to make sure that her blood counts are not elevated. Otherwise patient's lungs are clear. Heart normal. Afebrile in no acute distress. Course - Vital Signs Vital signs: Temp Pulse Resp BP Pulse Ox 98.5 F 70 16 107/63 100 08/27/17 18:08 08/27/17 18:08 08/27/17 18:08 08/27/17 18:08 08/27/17 18:08 - Laboratory Result Diagrams: 08/27/17 13:14 08/15/17 14:00 Laboratory results interpreted by me: 08/15/17 08/15/17 08/27/17 14:00 14:00 13:14 WBC 3.7 L RBC 3.60 L 3.64 L Hgb 9.8 L 9.6 L Hct 28.7 L 28.7 L MCV 79 L MCH 26.4 L RDW 17.6 H 16.9 H Monocytes % 13.7 H Carbon Dioxide 20 L BUN 28 H Total Protein 9.8 H
[2017-08-27 13:42] LABS: ABSOLUTE EOSINOPHILS # (AUTO) 0.1 10^3/uL (0.0-0.6); ABSOLUTE LYMPHOCYTES (AUTO) 1.1 10^3/uL (0.5-4.7); ABSOLUTE MONOCYTES (AUTO) 0.5 10^3/uL (0.1-1.4); ABSOLUTE NEUT (AUTO) 2.1 10^3/uL (1.7-8.2); BASOPHILS % (AUTO) 0.7 % (0-2); EOSINOPHILS % (AUTO) 1.5 % (0-6); HEMATOCRIT 28.7 % (36.0-47.0); HEMOGLOBIN 9.6 g/dL (12.0-15.5); LYMPHOCYTES % (AUTO) 28.2 % (13-45); MEAN CORPUSCULAR HEMOGLOBIN 26.4 pg (27.0-33.4); MEAN CORPUSCULAR HGB CONC 33.5 g/dL (32.0-36.0); MEAN CORPUSCULAR VOLUME 79 fl (80-97); MONOCYTES % (AUTO) 13.7 % (3-13); PLATELET COUNT 229 10^3/uL (150-450); RED BLOOD COUNT 3.64 10^6/uL (3.72-5.28); RED CELL DISTRIBUTION WIDTH 16.9 % (11.5-14.0); SEGMENTED NEUTROPHILS % (AUTO) 55.9 % (42-78); TOTAL CELLS COUNTED % (AUTO) 100 %; WHITE BLOOD COUNT 3.7 10^3/uL (4.0-10.5)
[2017-08-28] MEDS: OXYCODONE-ACETAMINOPHEN 5-325 MG TABLET PO PRN ×4 (01:50→20:46)
--- NOTE | 2017-08-28 10:14 | ER Document Report ---
Doctor's Note Notes: 08/28/17 10:13 42-year-old female. Still waiting for alf placement. No family members here to take patient home. Left stump drainage grew out Pseudomonas. Started on ciprofloxacin yesterday. Spoke with health social work professor today. No immediate plans for an acceptance. Multiple nursing homes have been called but no one is willing to accept patient. Patient is now on ER day #12. Patient has no complaints at this time. Comfortable and in no acute distress. No change in skin or left stump. Small amount of clear drainage. Will order daily wound care. Will order x-ray of the left femur. Will order enteric- coated aspirin daily. Will continue to follow. 08/28/17 10:19 08/28/17 12:52 Femur X-Ray 08/28/17 10:15 IMPRESSION: Relatively intact left mid leg amputation site. Findings as above. Surveillance followup radiographs may prove helpful to exclude developing osteomyelitis. X-ray of the left femur are unremarkable. Will continue to follow if needed for excluding developing osteomyelitis. Patient has no needs at this time. Resting comfortably and in no acute distress. We will continue to follow.
--- NOTE | 2017-08-28 11:12 | RADIOLOGY REPORT (SQ) ---
EXAM DESCRIPTION: FEMUR LEFT COMPLETED DATE/TIME: 08/28/2017 10:57 am REASON FOR STUDY: drainage from left stump COMPARISON: None. NUMBER OF VIEWS: Two views, 3 images of the left femur. This includes AP and oblique. LIMITATIONS: None. FINDINGS: Mid femoral amputation. Mild lucency at the resection site without aggressive bone lysis. No gas in the adjacent soft tissues at the amputation site. Left hip intact. OTHER: No other significant finding. IMPRESSION: Relatively intact left mid leg amputation site. Findings as above. Surveillance follow up radiographs may prove helpful to exclude developing osteomyelitis. TECHNICAL DOCUMENTATION: JOB ID: [id number]
[~2017-08-28 13:04] MED LIST: ACETAMINOPHEN 325 MG TABLET PO ONE; BACITRACIN ZINC OINTMENT 15 GM TP ONE; CIPROFLOXACIN HCL 500 MG TABLET PO ONE; CLINDAMYCIN HCL 150 MG CAPSULE PO ONE; CLINDAMYCIN HCL 150 MG CAPSULE PO SCH; OXYCODONE HCL IR 5 MG TABLET PO ONE; OXYCODONE-ACETAMINOPHEN 5-325 MG TABLET PO ONE
[2017-08-29] MEDS: OXYCODONE-ACETAMINOPHEN 5-325 MG TABLET PO PRN ×3 (05:39→17:40)
[2017-08-29] MEDS: ASPIRIN 81 MG TABLET, ENT COATED PO SCH (11:40)
--- NOTE | 2017-08-29 14:35 | ER Document Report ---
Doctor's Note Notes: 08/29/17 14:33 Medical rounds: Chart reviewed and patient interviewed briefly. Vital signs remained stable. Patient is being treated for wound infection and her AKA stump with daily dressing changes and ciprofloxacin. Patient denies any somatic complaints. Discharge planning is continuing to seek placement. She remains medically stable.
[2017-08-30] MEDS ORDERED: OXYCODONE-ACETAMINOPHEN 5-325 MG TABLET PO PRN (01:05)
[2017-08-30] MEDS ORDERED: OXYCODONE-ACETAMINOPHEN 5-325 MG TABLET ONE (01:40)
[2017-08-30] MEDS: OXYCODONE-ACETAMINOPHEN 5-325 MG TABLET PO PRN ×4 (02:00→22:25)
--- NOTE | 2017-08-30 09:40 | ER Document Report ---
Doctor's Note Notes: 08/30/17 09:43 Social Rounds: Patient has been here for 2-1/2 weeks now. She has no complaints. Vital signs are all remaining normal. Awaiting placement. Ave Elizalde MD
[2017-08-30] MEDS: ASPIRIN 81 MG TABLET, ENT COATED PO SCH (09:55)
--- NOTE | 2017-08-30 17:11 | Operative Report ---
Operative Report DATE OF SURGERY: 08/30/17 PREOPERATIVE DIAGNOSIS: Bilateral [id number] wounds POSTOPERATIVE DIAGNOSIS: Name; left AKA postoperative wound seroma; right AKA chronic granulating open wound OPERATION: Debridement of left AKA wound SURGEON: TIAGO LEE ANESTHESIA: Other - None TISSUE REMOVED OR ALTERED: Fluid left AKA stump COMPLICATIONS: None ESTIMATED BLOOD LOSS: Scant INTRAOPERATIVE FINDINGS: See below PROCEDURE: The patient was evaluated in the emergency department. She has been here for approximately 2 weeks camped out in room 47. She has been undergoing dressing changes to both AKA stumps. Apparently she underwent bilateral amputations approximately 3 months ago and over [facility]. Dr. Lee had previously performed her right below the knee amputation Procedure summary: The right pfflg-lzj-pgci amputation site is examined. There is a inverted soft tissue stump with approximately 5 cm transverse diameter granulating surface, clean, foul smell, with brisk fibrous tissue. Nothing operative to debride today. The left AKA stump has an open area centrally in the center of a long closed operative incision. Skin and subcutaneous tissue was debrided with pickups, and Q-tip used to explore a subcutaneous pocket which was essentially a non-foul -smelling seroma.. This cavity was irrigated and packed with quarter-inch iodoform packing. Treatment plan 1. We will start dressing changes; orders put in the record today 2. Discussed the above with Dr. Elizalde; patient previously grew out Pseudomonas from the left AKA stump. This was one colony was sensitive to all microbials. Dressing changes could include Dakin solution.
[2017-08-31] MEDS: OXYCODONE-ACETAMINOPHEN 5-325 MG TABLET PO PRN ×3 (06:10→22:32)
--- NOTE | 2017-08-31 09:59 | ER Document Report ---
Doctor's Note Notes: 08/31/17 09:57 Social rounds: Patient sleeping so I did not awaken her to interview her. No change in physical findings. Culture from her stump now showing Pseudomonas, graded +1. I spoke with Dr. Lee who came and evaluated the situation. He wrote a plan for wound care for the patient. Still awaiting placement. Ave Elizalde MD 08/31/17 12:34 Patient and nurse report patient's left stump is draining worse than yesterday. Requested reevaluation by surgery and Dr. Weller saw the patient and asked that we do an MRI to make sure she does not have osteomyelitis. If she does not have osteo-, he is going to take her to the operating room. Ave Elizalde MD 08/31/17 17:33 Dr. Weller, the surgeon medical office receptionist assistant, plans to take this patient to the operating room. Her MRIs did not show any osteomyelitis. He requested that the hospitalist be asked to admit the patient. I spoke with Dr. Figueroa with that request.
[2017-08-31] MEDS: ASPIRIN 81 MG TABLET, ENT COATED PO SCH (12:06)
--- NOTE | 2017-08-31 15:44 | RADIOLOGY REPORT (SQ) ---
EXAM DESCRIPTION: MRI RT LOWER EXTREMITY WITHOUT; MRI LT LOWER EXTREMITY WITHOUT COMPLETED DATE/TIME: 08/31/2017 3:01 pm; 08/31/2017 3:02 pm REASON FOR STUDY: Drainage from left stump, rule out osteo-; Drainage from Lt stump M79.604 PAIN IN RIGHT LEG M79.651 PAIN IN RIGHT THIGH COMPARISON: 08/15/2017 right and 08/28/2017 left radiographs. TECHNIQUE: Multiplanar imaging of the bilateral thighs to include fat and fluid sensitive sequences. LIMITATIONS: None. FINDINGS: BONE MARROW: Right femur: Proximal femoral amputation. Very mild edema in the femur at the amputation site witho ut aggressive bone resorption suggested. Proximal to this, normal marrow signal. Radiograph shows s ome regional calcification with slight bone irregularity, no aggressive resorption or periosteal new bone however. Left femur: Mid left femoral amputation. Mild edema at the amputation site without aggressive bone resorption suggested. Proximal to this, normal marrow signal. Radiographs reveal a relatively sharp amputation site without aggressive bone resorption. Other: Visualized marrow signal in the pelvis is normal. SOFT TISSUES: Mild soft tissue edema along both amputation sites. This looks slightly worse on the l eft. Minimal strandy fluid is present at the left site. No significant drainable collections, howev er. OTHER: No other significant finding. IMPRESSION: 1. Bilateral amputations with minimal reactive bone edema and regional soft tissue edema without drainable abscess. Doubt osteomyelitis, marrow signal changes may simply be related to over lying soft tissue infection and irritation. Surveillance followup radiographs to assess for progress bc bone resorption recommended. Progressive bone lysis would suggest osteomyelitis. TECHNICAL DOCUMENTATION: JOB ID: [id number] [employer]- All Rights Reserved
--- NOTE | 2017-08-31 17:24 | PDOC H&P ---
History of Present Illness Admission Date/PCP: 08/31/17 Patient complains of: Bilateral AKA amputation stump pains History of Present Illness: TAYLOR MACKEY is a 42 year old female Past Medical History Cardiac Medical History: Reports: Hypertension Renal/ Medical History: Reports: End Stage Renal Disease GI Medical History: Reports: Gastroesophageal Reflux Disease Musculoskeltal Medical History: Reports: Arthritis - lupus, Other - Lupus Hematology: Reports: Anemia - Of chronic illness Past Surgical History Past Surgical History: Reports: Section - 3, Orthopedic Surgery - bilateral AKAs June 2017, Other - Previous wound debridements to bilateral knees Social History Smoking Status: Unknown if Ever Smoked Frequency of Alcohol Use: Heavy Hx Recreational Drug Use: Yes Drugs: Cocaine - Crack cocaine Hx Prescription Drug Abuse: No - patient denies - Advance Directive Resuscitation Status: Full Code Family History Family History: Hypertension Parental Family History Reviewed: Yes - + hypertension Children Family History Reviewed: No Sibling(s) Family History Reviewed.: No Medication/Allergy Home Medications: Acetaminophen [Pain Relief] 650 mg PO Q6H 08/16/17 Famotidine [Pepcid 10 mg Tablet] 10 mg PO BID 08/16/17 Fluoxetine HCl [Prozac 20 mg Capsule] 60 mg PO DAILY 08/16/17 Gabapentin 1,200 mg PO TID 08/16/17 Ibuprofen [Motrin 400 mg Tablet] 400 mg PO TID 08/16/17 Multivitamin [Multiple Vitamins] 1 each PO DAILY 08/16/17 Olanzapine 2.5 mg PO QHS 08/16/17 Ondansetron HCl [Zofran 4 mg Tablet] 1 tab PO Q6H PRN 08/16/17 Oxycodone HCl 5 mg PO Q6H PRN 08/16/17 Trazodone HCl 100 mg PO QHS 08/16/17 Allergies/Adverse Reactions: amoxicillin [From Augmentin] Allergy (Verified 06/09/17 15:51) Generalized Itching cephalexin [From Keflex] Allergy (Verified 06/09/17 15:51) clavulanic acid [From Augmentin] Allergy (Verified 06/09/17 15:51) sulfamethoxazole [From Septra] Allergy (Verified 06/09/17 15:51) trimethoprim [From Septra] Allergy (Verified 06/09/17 15:51) Review of Systems Constitutional: PRESENT: other - No fever or chills Eyes: PRESENT: other - No visual or hearing problems Cardiovascular: PRESENT: other Respiratory: PRESENT: other - No chest pain no shortness of breath Gastrointestinal: PRESENT: other - No abdominal pains nausea or vomiting Musculoskeletal: PRESENT: other - Post AKA amputation complaining of pains along the stumps Integumentary: PRESENT: other - Has a small opening along the mid part of the incisional scar on the left AKA stump. This apparently was done by Dr. Lee yesterday to drain some clear fluid Neurological: PRESENT: other - No syncope Psychiatric: PRESENT: other - No suicidal ideation Endocrine: PRESENT: other - Polyuria polyuria polydipsia Hematologic/Lymphatic: PRESENT: other - No easy bruisability or lymphadenopathy Physical Exam Vital Signs: Temp Pulse Resp BP Pulse Ox 98.4 F 81 17 113/68 99 08/31/17 06:34 08/31/17 06:34 08/31/17 06:34 08/31/17 06:34 08/31/17 06:34 General appearance: PRESENT: no acute distress Head exam: PRESENT: atraumatic Eye exam: PRESENT: conjunctiva pink Mouth exam: PRESENT: moist, tongue midline Neck exam: PRESENT: full ROM Respiratory exam: PRESENT: clear to auscultation rei Cardiovascular exam: PRESENT: RRR Pulses: PRESENT: normal carotid pulses Vascular exam: PRESENT: normal capillary refill GI/Abdominal exam: PRESENT: soft - Nontender Rectal exam: PRESENT: deferred Extremities exam: PRESENT: other - Bilateral AKA with the left stump with the packing that was removed and has some yellow-green discoloration Neurological exam: PRESENT: alert, oriented to person, oriented to place, oriented to time, oriented to situation Psychiatric exam: PRESENT: appropriate affect Skin exam: PRESENT: other - Left AKA stump with a draining sinus Results Laboratory Results: 08/27/17 13:14 08/15/17 14:00 Impressions: Femur X-Ray 08/28/17 10:15 IMPRESSION: Relatively intact left mid leg amputation site. Findings as above. Surveillance followup radiographs may prove helpful to exclude developing osteomyelitis. Lower Extremity MRI 08/31/17 12:30 IMPRESSION: 1. Bilateral amputations with minimal reactive bone edema and regional soft tissue edema without drainable abscess. Doubt osteomyelitis, marrow signal changes may simply be related to overlying soft tissue infection and irritation. Surveillance followup radiographs to assess for progressive bone resorption recommended. Progressive bone lysis would suggest osteomyelitis. Assessment & Plan - Time Time Spent: 30 to 50 Minutes - Inpatient Certification Based on my medical assessment, after consideration of the patient's comorbidities, presenting symptoms, or acuity I expect that the services needed warrant INPATIENT care.: Yes I certify that my determination is in accordance with my understanding of Medicare's requirements for reasonable and necessary INPATIENT services [42 CFR 412.3e].: Yes Medical Necessity: Need Close Monitoring Due to Risk of Patient Decompensation, Need For IV Fluids, Need for IV Antibiotics, Need for Surgery - Plan Summary Plan Summary: For debridement left AKA stump abscess cavity Will need IV antibiotic therapy Would likely need a wound VAC to heal left AKA stump
[2017-08-31] MEDS ORDERED: LIDOCAINE 0.5% INJ-PF (5 MG/ML) 50 ML SDV ONE (17:46)
--- NOTE | 2017-08-31 18:18 | PDOC H&P ---
History of Present Illness History of Present Illness: TAYLOR MACKEY is a 42 year old -Lao female with a past medical history significant for lupus complicated by severe peripheral vascular disease necessitating bilateral AKA, hypertension, and chronic kidney disease who presented to the emergency room back on August 15 with complaints lower extremity pain. Apparently the patient had been admitted to [facility] for treatment and ultimately was discharged to [facility]. The patient states that [facility][birth year] [facility] in order to do that she had to sign herself out of the facility. The day after she arrived in [facility] she began having lower extremity pain and ulcer that she had on her right stump began oozing. She presented to the emergency room and has been here ever since. Discharge planning has been working to try and find her placement but this is been difficult because she signed herself out of the last facility. In the emergency room the patient was initially started on clindamycin on 22 August because of drainage that was noted from her stump. Daily rounds were made in the ED. The patient initially had a normal white count wet-to-dry dressings was started in the emergency room. Cultures were done on August 15 and were negative after 5 days. As time went on the patient's drainage became worse and repeat cultures were done on 08/24 these cultures showed pseudomonas aeruginosa and the patient's antibiotics were changed from clindamycin to ciprofloxacin. X-rays of the patient's left femur were unremarkable and were done to exclude developing osteomyelitis. On August 30 the surgical service was consulted and they recommended Dakin's solution with daily dressing changes to be continued. Today the patient was seen again by the general surgery service and felt that the patient should have MRI of her lower extremities to rule out osteomyelitis. This was done and is negative. No drainable abscess was noted. The general surgery service recommended incision and drainage in the OR and admission to the hospitalist service. In the emergency room, the patient states that she is feeling hungry. She has been made n.p.o. for impending incision and drainage. She states that her stump hurts badly. She tells me that it has been difficult for her to find placement because she signed herself out of the previous facility. She does readily admit to cocaine, marijuana and alcohol use. She quit all of these things 3 months ago. Past Medical History Cardiac Medical History: Reports: Hypertension Renal/ Medical History: Reports: Chronic Kidney Disease GI Medical History: Reports: Gastroesophageal Reflux Disease Musculoskeltal Medical History: Reports: Arthritis - lupus, Other - Lupus Psychiatric Medical History: Reports: Alcohol Dependency Hematology: Reports: Anemia - Of chronic illness Past Surgical History Past Surgical History: Reports: Section - 3, Orthopedic Surgery - bilateral AKAs June 2017, Other - Previous wound debridements to bilateral knees, surgery for gastric ulcer Social History Information Source: Patient Smoking Status: Former Smoker Frequency of Alcohol Use: Heavy Hx Recreational Drug Use: Yes Drugs: Cocaine - Crack cocaine Hx Prescription Drug Abuse: No - patient denies Past Social History Note: The patient has a history of smoking since the age of 26. She would smoke between 2 and 3 packs per day. Her last cigarette use was 3 months ago. She also has a history of heavy alcohol use. The patient drank so heavily that she cannot quantify how much per day. She mostly consumed beer. She also has a history of crack cocaine and marijuana use. Her last use was 3 months ago. - Advance Directive Resuscitation Status: Full Code Family History Family History: Hypertension Parental Family History Reviewed: Yes Children Family History Reviewed: Yes Sibling(s) Family History Reviewed.: Yes Medication/Allergy Home Medications: Acetaminophen [Pain Relief] 650 mg PO Q6H 08/16/17 Famotidine [Pepcid 10 mg Tablet] 10 mg PO BID 08/16/17 Fluoxetine HCl [Prozac 20 mg Capsule] 60 mg PO DAILY 08/16/17 Gabapentin 1,200 mg PO TID 08/16/17 Ibuprofen [Motrin 400 mg Tablet] 400 mg PO TID 08/16/17 Multivitamin [Multiple Vitamins] 1 each PO DAILY 08/16/17 Olanzapine 2.5 mg PO QHS 08/16/17 Ondansetron HCl [Zofran 4 mg Tablet] 1 tab PO Q6H PRN 08/16/17 Oxycodone HCl 5 mg PO Q6H PRN 08/16/17 Trazodone HCl 100 mg PO QHS 08/16/17 Allergies/Adverse Reactions: amoxicillin [From Augmentin] Allergy (Verified 06/09/17 15:51) Generalized Itching cephalexin [From Keflex] Allergy (Verified 06/09/17 15:51) clavulanic acid [From Augmentin] Allergy (Verified 06/09/17 15:51) sulfamethoxazole [From Septra] Allergy (Verified 06/09/17 15:51) trimethoprim [From Septra] Allergy (Verified 06/09/17 15:51) Review of Systems Review of Systems: HPI is positive for those pertinent review of systems. In addition to this the patient has complained of a dry nose and occasional bleeding with wiping. She also has chronic joint pain. She denies any dizziness, diarrhea, constipation, blood in the stool, blood in the urine, coughing up blood or throwing up blood, fevers, chills, vomiting, nausea, abdominal pain, weight changes, decreased appetite. Physical Exam Vital Signs: Temp Pulse Resp BP Pulse Ox 98.4 F 81 17 113/68 99 08/31/17 06:34 08/31/17 06:34 08/31/17 06:34 08/31/17 06:34 08/31/17 06:34 GENERAL: This is a well-developed chronically ill appearing -[place] female resting in bed watching TV currently in no acute distress. HEENT: Normocephalic. Atraumatic. Sclera are anicteric. Moist mucous membranes. HEART: Regular rate and rhythm. No murmurs, rubs or gallops. LUNGS: Clear to auscultation bilaterally with equal rise and fall of the chest. ABDOMEN: Soft, nontender, nondistended with normoactive bowel sounds EXTREMETIES: No clubbing or cyanosis. The patient has bilateral AKA. Her index finger on the left is necrotic and falling off. Pulses are 1+. NEURO: Awake, alert and oriented 3. Cranial nerves II through XII are grossly intact. Skin: There is a 3 inch lesion of the right stump with purulent drainage coming from the site. The patient also has a necrotic nailbed and fingertip on the right hand. Patient's skin is discolored possibly vitiligo. Results Laboratory Results: 08/27/17 13:14 08/15/17 14:00 Impressions: Femur X-Ray 08/28/17 10:15 IMPRESSION: Relatively intact left mid leg amputation site. Findings as above. Surveillance followup radiographs may prove helpful to exclude developing osteomyelitis. Lower Extremity MRI 08/31/17 12:30 IMPRESSION: 1. Bilateral amputations with minimal reactive bone edema and regional soft tissue edema without drainable abscess. Doubt osteomyelitis, marrow signal changes may simply be related to overlying soft tissue infection and irritation. Surveillance followup radiographs to assess for progressive bone resorption recommended. Progressive bone lysis would suggest osteomyelitis. Assessment & Plan - Diagnosis (1) Ulcer of right lower extremity Plan: Patient will go to the OR for incision and debridement tonight. She is currently on Cipro. I will discontinue this and start Zosyn. General surgery is following. She is currently receiving as needed Percocet every 6 hours. I will continue this. (2) Alcohol use Plan: Patient's last use was 3 months ago. Recommend continued cessation. (3) Cocaine abuse Plan: The patient's last use was 3 months ago recommend continued cessation. (4) Tobacco abuse Plan: Recommend continued cessation. Last use was 3 months ago (6) Essential hypertension Plan: We will need to verify her home medications. At this point the patient is not receiving anything. Blood pressures have been very reasonable. (7) SLE (systemic lupus erythematosus) Qualifiers: Systemic lupus erythematosus type: unspecified Systemic lupus erythematosus organ involvement: unspecified Qualified Code(s): M32.9 - Systemic lupus erythematosus, unspecified Plan: There are no home medications listed. We will need to verify with pharmacy. The patient is not currently receiving any medications. - Time Time Spent: 30 to 50 Minutes Within: when bed available - Inpatient Certification Medical Necessity: Need Close Monitoring Due to Risk of Patient Decompensation
[2017-08-31] MEDS ORDERED: PROPOFOL INJ 200 MG/20 ML VIAL IV ONE (18:31)
[2017-08-31] MEDS ORDERED: KETAMINE HCL INJ 500 MG/10 ML VIAL ONE (18:31)
[2017-08-31] MEDS ORDERED: FENTANYL CITRATE INJ/PF 100 MCG/2 ML AMPUL ONE ×2 (18:31)
[2017-08-31] MEDS ORDERED: MIDAZOLAM 2 MG/2 ML INJ ONE (18:31)
[2017-08-31] MEDS ORDERED: FENTANYL CITRATE INJ/PF 100 MCG/2 ML AMPUL IV PRN ×3 (18:46)
[2017-08-31] MEDS ORDERED: ONDANSETRON HCL INJ/PF 4 MG/2 ML SDV IV PRN (18:46)
[2017-08-31] MEDS ORDERED: INFLUENZA ADLT QUAD (36MOS+) 2017-18 VAC 0.5 ML SYR IM PRN (20:48)
[2017-08-31] MEDS: MORPHINE SULFATE 10 MG/ML INJ IV PRN (20:55)
[2017-08-31] MEDS: PIPERACILLIN SODIUM/TAZOBACTAM 3.375 GM in NORMAL SALINE 100 ML IV SCH (21:09)
--- NOTE | 2017-08-31 22:28 | OPERATIVE REPORT E ---
Operative Report NAME: TAYLOR MACKEY : 1975 AGE: 42Y DATE OF SURGERY: 08/31/2017 ROOM: 425 PREOPERATIVE DIAGNOSIS: ABSCESS OF THE LEFT AKA STUMP. POSTOPERATIVE DIAGNOSIS: ABSCESS OF THE LEFT AKA STUMP. OPERATION: Incision and drainage and debridement of left AKA stump. SURGEON: ANTHONY CHANDLER M.D. ANESTHESIA: Local MAC. INDICATION: This is a 22-year-old female who had amputation of both legs with the left AKA done about 3 months ago. Patient has been complaining of pain in both stumps and eventually noted to have some drainage along the left AKA stump incision. This was partially opened by Dr. Lee yesterday but today the drain at this place has some purulent drainage. A MRI of the femoral stump was done today and showed no definite osteomyelitis. DESCRIPTION OF PROCEDURE: After adequate IV sedation, patient placed in the supine position and the left AKA stump prepped and draped in the usual sterile fashion. Appropriate timeout was called. Xylocaine 0.50% was then injected along the previous amputation scar medially and laterally from the I and D site. Incision sharply extended laterally and medially to about a total of 9 cm long. Further purulent material noted and cultures were then obtained. The cavity was then palpated and noted to be deep to about 5 cm down around the femoral end of the amputation site. Bone appears to be hard with no obvious osteomyelitis. The area was subsequently pulsatile lavaged with a liter of saline and the edges of the abscess cavity with curette. Further pulsatile lavage was done and hemostasis obtained with the use of cautery primarily along the edges of the incision. Cavity roughly measures about 9 cm wide x 5 cm deep by about 3 cm from pulsatile edges of the defect. The wound cavity was then packed with a bottle 1/2-inch Iodoform gauze. Sterile dressings placed around the operative site and wrapped with Shanta and Tanner bandage. Patient tolerated the procedure well. Needle, instruments and sponge counts were all correct. Estimated blood loss about 20 mL. The patient was brought to the PACU in satisfactory condition. DICTATING PHYSICIAN: ANTHONY CHANDLER M.D. [id number] PHY#: [id number] ID: [id number] JOB#: [id number] ACCT: [id number] cc:ANTHONY CHANDLER M.D. > CLEMENTE
[2017-09-01] MEDS: MORPHINE SULFATE 10 MG/ML INJ IV PRN ×6 (01:14→22:01)
[2017-09-01] MEDS: PIPERACILLIN SODIUM/TAZOBACTAM 3.375 GM in NORMAL SALINE 100 ML IV SCH ×4 (02:54→22:00)
[2017-09-01] MEDS: OXYCODONE-ACETAMINOPHEN 5-325 MG TABLET PO PRN ×5 (05:12→22:01)
[2017-09-01 05:33] LABS: ABSOLUTE EOSINOPHILS # (AUTO) 0.1 10^3/uL (0.0-0.6); ABSOLUTE LYMPHOCYTES (AUTO) 0.9 10^3/uL (0.5-4.7); ABSOLUTE MONOCYTES (AUTO) 0.3 10^3/uL (0.1-1.4); ABSOLUTE NEUT (AUTO) 1.7 10^3/uL (1.7-8.2); BASOPHILS % (AUTO) 0.4 % (0-2); EOSINOPHILS % (AUTO) 1.9 % (0-6); HEMATOCRIT 24.8 % (36.0-47.0); HEMOGLOBIN 8.3 g/dL (12.0-15.5); LYMPHOCYTES % (AUTO) 29.9 % (13-45); MEAN CORPUSCULAR HEMOGLOBIN 26.7 pg (27.0-33.4); MEAN CORPUSCULAR HGB CONC 33.7 g/dL (32.0-36.0); MEAN CORPUSCULAR VOLUME 79 fl (80-97); MONOCYTES % (AUTO) 9.3 % (3-13); PLATELET COUNT 188 10^3/uL (150-450); RED BLOOD COUNT 3.13 10^6/uL (3.72-5.28); SEGMENTED NEUTROPHILS % (AUTO) 58.5 % (42-78); TOTAL CELLS COUNTED % (AUTO) 100 %; WHITE BLOOD COUNT 2.9 10^3/uL (4.0-10.5)
[2017-09-01 05:43] LABS: ANION GAP 10 (5-19); BLOOD UREA NITROGEN 9 mg/dL (7-20); CALCIUM 8.9 mg/dL (8.4-10.2); CARBON DIOXIDE 25 mmol/L (22-30); CHLORIDE 105 mmol/L (98-107); GLUCOSE 86 mg/dL (75-110); POTASSIUM 4.3 mmol/L (3.6-5.0); SODIUM 140.1 mmol/L (137-145)
[2017-09-01] MEDS: NORMAL SALINE 1000 ML 1,000 ML IV PRN (14:16)
[2017-09-01] MEDS ORDERED: ASPIRIN 81 MG TABLET, CHEWABLE PO ONE (17:30)
[2017-09-01] MEDS ORDERED: MORPHINE SULFATE 10 MG/ML INJ IV ONE (19:30)
[2017-09-01] MEDS: DIPHENHYDRAMINE HCL 25 MG CAPSULE PO PRN (19:48)
--- NOTE | 2017-09-01 23:37 | PDOC PROGRESS REPORT ---
Subjective Progress Note for:: 09/01/17 Subjective:: Pains left AKA stump post I&D and debridement Physical Exam Vital Signs: Temp Pulse Resp BP Pulse Ox 98.2 F 77 16 100/51 L 97 09/01/17 19:21 09/01/17 19:21 09/01/17 19:21 09/01/17 19:21 09/01/17 19:21 Intake & Output 08/31/17 09/01/17 09/02/17 06:59 06:59 06:59 Intake Total 940 1160 Output Total 1350 Balance -410 1160 Weight 42.7 kg 42.7 kg Exam: Packing removed. Appears to have starting good granulation tissue Rt AKA stump has a raw surface wound with granulation tissue about 6 cm in jose carlos. Results Laboratory Results: 09/01/17 04:58 09/01/17 04:58 09/01/17 09/01/17 04:58 04:58 WBC 2.9 L RBC 3.13 L Hgb 8.3 L Hct 24.8 L MCV 79 L MCH 26.7 L MCHC 33.7 RDW 17.0 H Plt Count 188 Seg Neutrophils % 58.5 Lymphocytes % 29.9 Monocytes % 9.3 Eosinophils % 1.9 Basophils % 0.4 Absolute Neutrophils 1.7 Absolute Lymphocytes 0.9 Absolute Monocytes 0.3 Absolute Eosinophils 0.1 Absolute Basophils 0.0 Sodium 140.1 Potassium 4.3 Chloride 105 Carbon Dioxide 25 Anion Gap 10 BUN 9 Creatinine 0.48 L Est GFR ( Amer) > 60 Est GFR (Non-Af Amer) > 60 Glucose 86 Calcium 8.9 Impressions: Femur X-Ray 08/28/17 10:15 IMPRESSION: Relatively intact left mid leg amputation site. Findings as above. Surveillance followup radiographs may prove helpful to exclude developing osteomyelitis. Lower Extremity MRI 08/31/17 12:30 IMPRESSION: 1. Bilateral amputations with minimal reactive bone edema and regional soft tissue edema without drainable abscess. Doubt osteomyelitis, marrow signal changes may simply be related to overlying soft tissue infection and irritation. Surveillance followup radiographs to assess for progressive bone resorption recommended. Progressive bone lysis would suggest osteomyelitis. Assessment & Plan - Time Time Spent with patient: 35 or more minutes - Left AKA wound VAC applied - Inpatient Certification Medical Necessity: Need for Pain Control, Need for IV Antibiotics - Plan Summary Plan Summary: Wound VAC applied to left AKA wound with the femoral bone tip exposed. Has a marginal soft tissue around the bone. Will change VAC dressings Fri 09/03 and decide on need for higher bone amputation or revision of amputation to allow eventually good tissue closure over the bone. Continue IV antibiotics. Awaiting final c/s results from left AKA stump drainage
[2017-09-02] MEDS: PIPERACILLIN SODIUM/TAZOBACTAM 3.375 GM in NORMAL SALINE 100 ML IV SCH ×4 (02:28→21:16)
[2017-09-02] MEDS: OXYCODONE-ACETAMINOPHEN 5-325 MG TABLET PO PRN ×4 (02:29→17:01)
[2017-09-02] MEDS: MORPHINE SULFATE 10 MG/ML INJ IV PRN ×5 (02:29→20:25)
[2017-09-02 02:56] LABS: ABSOLUTE EOSINOPHILS # (AUTO) 0.1 10^3/uL (0.0-0.6); ABSOLUTE LYMPHOCYTES (AUTO) 0.9 10^3/uL (0.5-4.7); ABSOLUTE MONOCYTES (AUTO) 0.2 10^3/uL (0.1-1.4); ABSOLUTE NEUT (AUTO) 1.8 10^3/uL (1.7-8.2); BASOPHILS % (AUTO) 0.6 % (0-2); EOSINOPHILS % (AUTO) 2.5 % (0-6); HEMATOCRIT 25.2 % (36.0-47.0); HEMOGLOBIN 8.5 g/dL (12.0-15.5); LYMPHOCYTES % (AUTO) 29.8 % (13-45); MEAN CORPUSCULAR HEMOGLOBIN 26.8 pg (27.0-33.4); MEAN CORPUSCULAR HGB CONC 33.9 g/dL (32.0-36.0); MEAN CORPUSCULAR VOLUME 79 fl (80-97); MONOCYTES % (AUTO) 7.8 % (3-13); PLATELET COUNT 193 10^3/uL (150-450); RED BLOOD COUNT 3.18 10^6/uL (3.72-5.28); RED CELL DISTRIBUTION WIDTH 16.6 % (11.5-14.0); SEGMENTED NEUTROPHILS % (AUTO) 59.3 % (42-78); TOTAL CELLS COUNTED % (AUTO) 100 %
[2017-09-02 03:01] LABS: ALANINE AMINOTRANSFERASE 73 U/L (9-52); ALKALINE PHOSPHATASE 94 U/L (38-126); ANION GAP 13 (5-19); ASPARTATE AMINO TRANSFERASE 60 U/L (14-36); BILIRUBIN,DIRECT 0.3 mg/dL (0.0-0.4); BILIRUBIN,TOTAL 0.4 mg/dL (0.2-1.3); BLOOD UREA NITROGEN 10 mg/dL (7-20); CALCIUM 8.9 mg/dL (8.4-10.2); CARBON DIOXIDE 25 mmol/L (22-30); CHLORIDE 104 mmol/L (98-107); GLUCOSE 77 mg/dL (75-110); POTASSIUM 4.3 mmol/L (3.6-5.0); SODIUM 141.8 mmol/L (137-145)
[2017-09-02] MEDS: ASPIRIN 81 MG TABLET, CHEWABLE PO SCH (10:09)
--- NOTE | 2017-09-02 10:24 | PDOC PROGRESS REPORT ---
Subjective Progress Note for:: 09/02/17 Subjective:: Pain at amputation site Physical Exam Vital Signs: Temp Pulse Resp BP Pulse Ox 98.6 F 79 16 93/48 L 99 09/01/17 23:28 09/01/17 23:28 09/01/17 23:28 09/01/17 23:28 09/01/17 23:28 Intake & Output 09/01/17 09/02/17 09/03/17 06:59 06:59 06:59 Intake Total 940 1160 Output Total 1350 350 Balance -410 810 Weight 42.7 kg 42.7 kg General appearance: PRESENT: no acute distress, cooperative Extremities exam: PRESENT: other - Left AKA amputation site wound is open and appears very clean with the no purulent drainage and no necrotic tissue and no surrounding erythema. However patient does have a exposed femur bone that is very close to the wound edge. Results Laboratory Results: 09/02/17 02:35 09/02/17 02:35 09/02/17 09/02/17 09/02/17 02:35 02:35 02:35 WBC 3.0 L RBC 3.18 L Hgb 8.5 L Hct 25.2 L MCV 79 L MCH 26.8 L MCHC 33.9 RDW 16.6 H Plt Count 193 Seg Neutrophils % 59.3 Lymphocytes % 29.8 Monocytes % 7.8 Eosinophils % 2.5 Basophils % 0.6 Absolute Neutrophils 1.8 Absolute Lymphocytes 0.9 Absolute Monocytes 0.2 Absolute Eosinophils 0.1 Absolute Basophils 0.0 Sodium 141.8 Potassium 4.3 Chloride 104 Carbon Dioxide 25 Anion Gap 13 BUN 10 Creatinine 0.53 Est GFR ( Amer) > 60 Est GFR (Non-Af Amer) > 60 Glucose 77 Calcium 8.9 Total Bilirubin 0.4 AST 60 H ALT 73 H Alkaline Phosphatase 94 Total Protein 8.0 Albumin 4.0 Blood Type O POSITIVE Antibody Screen NEGATIVE Impressions: Femur X-Ray 08/28/17 10:15 IMPRESSION: Relatively intact left mid leg amputation site. Findings as above. Surveillance followup radiographs may prove helpful to exclude developing osteomyelitis. Lower Extremity MRI 08/31/17 12:30 IMPRESSION: 1. Bilateral amputations with minimal reactive bone edema and regional soft tissue edema without drainable abscess. Doubt osteomyelitis, marrow signal changes may simply be related to overlying soft tissue infection and irritation. Surveillance followup radiographs to assess for progressive bone resorption recommended. Progressive bone lysis would suggest osteomyelitis. Assessment & Plan - Diagnosis (1) Abscess of left leg Is this a current diagnosis for this admission?: Yes Plan: Status post debridement with good control of the infection at the left AKA site. However with the length of the femur I do not think the wound would ever heal. I will plan revision of her AKA amputation with cutting the femur higher up. Will plan to leave the wound open. Patient understands risk and benefits of the revision. And agrees to proceed. She understands risk of bleeding infection and continued poor wound healing.
[2017-09-02] MEDS: DIPHENHYDRAMINE HCL 25 MG CAPSULE PO PRN (18:18)
--- NOTE | 2017-09-02 19:08 | PDOC PROGRESS REPORT ---
Subjective Progress Note for:: 09/02/17 Subjective:: No complaints overnight. The patient had surgery 2 days ago and is doing well. Physical Exam Vital Signs: Temp Pulse Resp BP Pulse Ox 98.1 F 75 18 89/46 L 100 09/02/17 15:45 09/02/17 15:45 09/02/17 15:45 09/02/17 15:45 09/02/17 15:45 Intake & Output 09/01/17 09/02/17 09/03/17 06:59 06:59 06:59 Intake Total 940 1160 1034 Output Total 1350 350 Balance -757 128 1940 Weight 42.7 kg 42.7 kg GENERAL: This is a well-developed chronically ill appearing -Citizen Of [place] female resting in bed watching TV currently in no acute distress. HEART: Regular rate and rhythm. No murmurs, rubs or gallops. LUNGS: Clear to auscultation bilaterally with equal rise and fall of the chest. ABDOMEN: Soft, nontender, nondistended with normoactive bowel sounds EXTREMETIES: No clubbing or cyanosis. The patient has bilateral AKA. Her index finger on the left is necrotic and falling off. It is currently bandaged. Pulses are 1+. NEURO: Awake, alert and oriented 3. Cranial nerves II through XII are grossly intact. Skin: The patient's stumps are currently wrapped in gauze. Results Laboratory Results: 09/02/17 02:35 09/02/17 02:35 09/02/17 09/02/17 09/02/17 02:35 02:35 02:35 WBC 3.0 L RBC 3.18 L Hgb 8.5 L Hct 25.2 L MCV 79 L MCH 26.8 L MCHC 33.9 RDW 16.6 H Plt Count 193 Seg Neutrophils % 59.3 Lymphocytes % 29.8 Monocytes % 7.8 Eosinophils % 2.5 Basophils % 0.6 Absolute Neutrophils 1.8 Absolute Lymphocytes 0.9 Absolute Monocytes 0.2 Absolute Eosinophils 0.1 Absolute Basophils 0.0 Sodium 141.8 Potassium 4.3 Chloride 104 Carbon Dioxide 25 Anion Gap 13 BUN 10 Creatinine 0.53 Est GFR ( Amer) > 60 Est GFR (Non-Af Amer) > 60 Glucose 77 Calcium 8.9 Total Bilirubin 0.4 AST 60 H ALT 73 H Alkaline Phosphatase 94 Total Protein 8.0 Albumin 4.0 Blood Type O POSITIVE Antibody Screen NEGATIVE Impressions: Femur X-Ray 08/28/17 10:15 IMPRESSION: Relatively intact left mid leg amputation site. Findings as above. Surveillance followup radiographs may prove helpful to exclude developing osteomyelitis. Lower Extremity MRI 08/31/17 12:30 IMPRESSION: 1. Bilateral amputations with minimal reactive bone edema and regional soft tissue edema without drainable abscess. Doubt osteomyelitis, marrow signal changes may simply be related to overlying soft tissue infection and irritation. Surveillance followup radiographs to assess for progressive bone resorption recommended. Progressive bone lysis would suggest osteomyelitis. Assessment & Plan - Diagnosis (1) Ulcer of right lower extremity Plan: Patient will go to the OR for incision and debridement again tomorrow she is currently on Cipro. I will discontinue this and start Zosyn. General surgery is following. She is currently receiving as needed Percocet every 6 hours. This is managed by surgery. Status post ID (2) Alcohol use Plan: Patient's last use was 3 months ago. Recommend continued cessation. (3) Cocaine abuse Plan: The patient's last use was 3 months ago recommend continued cessation. (4) Tobacco abuse Plan: Recommend continued cessation. Last use was 3 months ago (6) Essential hypertension Plan: We will need to verify her home medications. At this point the patient is not receiving anything. Blood pressures have been very reasonable. (7) SLE (systemic lupus erythematosus) Qualifiers: Systemic lupus erythematosus type: unspecified Systemic lupus erythematosus organ involvement: unspecified Qualified Code(s): M32.9 - Systemic lupus erythematosus, unspecified Plan: There are no home medications listed. We will need to verify with pharmacy. The patient is not currently receiving any medications. - Time Time Spent with patient: 15-24 minutes
--- NOTE | 2017-09-02 19:15 | RADIOLOGY REPORT (SQ) ---
EXAM DESCRIPTION: CHEST SINGLE VIEW COMPLETED DATE/TIME: 09/02/2017 7:03 pm REASON FOR STUDY: Preop Clearance COMPARISON: 06/11/2017. EXAM PARAMETERS: NUMBER OF VIEWS: One view. TECHNIQUE: Single frontal radiographic view of the chest acquired. RADIATION DOSE: NA LIMITATIONS: None. FINDINGS: LUNGS AND PLEURA: No opacities, masses or pneumothorax. No pleural effusion. MEDIASTINUM AND HILAR STRUCTURES: No masses. Contour normal. HEART AND VASCULAR STRUCTURES: Heart normal in size. Normal vasculature. BONES: No acute findings. HARDWARE: None in the chest. OTHER: No other significant finding. IMPRESSION: NO ACUTE RADIOGRAPHIC FINDING IN THE CHEST. PREVIOUSLY SEEN RIGHT-SIDED INFILTRATE HAS CLEARED. TECHNICAL DOCUMENTATION: JOB ID: [id number] [employer]- All Rights Reserved
--- NOTE | 2017-09-02 21:02 | PDOC CONSULTATION ---
Consultation Consult Date: 09/02/17 Attending physician:: TIAGO Bravo BUSTEED Consult reason:: Preop cardiovascular evaluation History of Present Illness Admission Date/PCP: 08/31/17 18:14 Patient complains of: Patient has no complaints but has history of vasculitis History of Present Illness: TAYLOR MACKEY is a 42 year old -[place] female with a past medical history significant for lupus complicated by severe peripheral vascular disease necessitating bilateral AKA, hypertension, and chronic kidney disease who presented to the emergency room back on August 15 with complaints lower extremity pain. Apparently the patient had been admitted to [facility] for treatment and ultimately was discharged to [facility]. The patient states that she wanted to come to [place] for her [place] 2[birth year] 2 [place] ago in order to do that she had to sign herself out of the facility. The day after she arrived in [place] she began having lower extremity pain and ulcer that she had on her right stump began oozing. She presented to the emergency room and has been here ever since. Discharge planning has been working to try and find her placement but this is been difficult because she signed herself out of the last facility. In the emergency room the patient was initially started on clindamycin on 22 August because of drainage that was noted from her stump. Daily rounds were made in the ED. The patient initially had a normal white count wet-to-dry dressings was started in the emergency room. Cultures were done on August 15 and were negative after 5 days. As time went on the patient's drainage became worse and repeat cultures were done on 08/24 these cultures showed pseudomonas aeruginosa and the patient's antibiotics were changed from clindamycin to ciprofloxacin. X-rays of the patient's left femur were unremarkable and were done to exclude developing osteomyelitis. On August 30 the surgical service was consulted and they recommended Dakin's solution with daily dressing changes to be continued. Today the patient was seen again by the general surgery service and felt that the patient should have MRI of her lower extremities to rule out osteomyelitis. This was done and is negative. No drainable abscess was noted. The general surgery service recommended incision and drainage in the OR and admission to the hospitalist service. In the emergency room, the patient states that she is feeling hungry. She has been made n.p.o. for impending incision and drainage. She states that her stump hurts badly. She tells me that it has been difficult for her to find placement because she signed herself out of the previous facility. She does readily admit to cocaine, marijuana and alcohol use. She quit all of these things 3 months ago. This history was reviewed and confirmed. I am told by the patient that she is supposed to undergo surgery on her left lower extremity to remove infected bone. Because of her significant history of vasculitis I been asked to evaluate patient for cardiac clearance. Patient denied any prior history of heart problems. She did have a echocardiogram more than 2 years ago which had shown normal LVEF. Patient is physically inactive because of amputation bilateral above-knee. Patient however denied any symptoms of chest pains, shortness of breath, PND, orthopnea, prior history of myocardial infarction or congestive heart failure. Past Medical History Cardiac Medical History: Reports: Hypertension Renal/ Medical History: Reports: Chronic Kidney Disease, End Stage Renal Disease GI Medical History: Reports: Gastroesophageal Reflux Disease Musculoskeltal Medical History: Reports: Arthritis - lupus, Other - Lupus Psychiatric Medical History: Reports: Alcohol Dependency Hematology: Reports: Anemia - Of chronic illness Past Surgical History Past Surgical History: Reports: Section - 3, Orthopedic Surgery - bilateral AKAs June 2017, Other - Previous wound debridements to bilateral knees, surgery for gastric ulcer Social History Information Source: Patient Smoking Status: Former Smoker Cigarettes Packs Per Day: 2 Number of Years Smokin Last Time Smoked: 2016 Frequency of Alcohol Use: None Hx Recreational Drug Use: Yes Drugs: Cocaine Hx Prescription Drug Abuse: No - Advance Directive Resuscitation Status: Full Code Family History Family History: Hypertension Parental Family History Reviewed: Yes Children Family History Reviewed: Yes Sibling(s) Family History Reviewed.: Yes - Negative for family history of premature coronary artery disease or sudden cardiac Medication/Allergy Home Medications: Acetaminophen [Pain Relief] 650 mg PO Q6H 08/16/17 Famotidine [Pepcid 10 mg Tablet] 10 mg PO BID 08/16/17 Fluoxetine HCl [Prozac 20 mg Capsule] 60 mg PO DAILY 08/16/17 Gabapentin 1,200 mg PO TID 08/16/17 Ibuprofen [Motrin 400 mg Tablet] 400 mg PO TID 08/16/17 Multivitamin [Multiple Vitamins] 1 each PO DAILY 08/16/17 Olanzapine 2.5 mg PO QHS 08/16/17 Ondansetron HCl [Zofran 4 mg Tablet] 1 tab PO Q6H PRN 08/16/17 Oxycodone HCl 5 mg PO Q6H PRN 08/16/17 Trazodone HCl 100 mg PO QHS 08/16/17 Allergies/Adverse Reactions: amoxicillin [From Augmentin] Allergy (Verified 06/09/17 15:51) Generalized Itching cephalexin [From Keflex] Allergy (Verified 06/09/17 15:51) clavulanic acid [From Augmentin] Allergy (Verified 06/09/17 15:51) sulfamethoxazole [From Septra] Allergy (Verified 06/09/17 15:51) trimethoprim [From Septra] Allergy (Verified 06/09/17 15:51) Review of Systems Review of Systems: Please see history of present illness and past medical history as wall. Constitutional: No fever or chills reported. Head : No recent chronic headaches, recent head injury. Eyes: No recent eye pain, diplopia, redness, discharge, acute visual changes. Ears: No recent chronic ear pain, acute hearing loss, ear discharge. Oral cavity: No recent ulcerations, bleeding, oral cavity discomfort. Neck: No recent acute neck pain reported. Hematologic: No recent easy bruising or bleeding or hematologic malignancy reported. Lymphatic: No recent lymphatic malignancy, chronic lymphadenopathy reported yet Cardiovascular system review: See history of present illness. Respiratory system review: No recent chronic cough, hemoptysis, blood clots in the lungs reported. Mild Shortness of breath on exertion Gastrointestinal system review: Negative for any recent acute or chronic abdominal pain, hematemesis, melena, recent change in bowel habits. Genitourinary system review: No recent acute or chronic hematuria, flank pain, UTI etc. reported. Skin system review: Chronic rash indicative of SLE involvement of the skin. Neurologic: No prior history of strokes, mini strokes, seizure disorder. Psychologic: No history of major psychosis or major depression reported. Musculoskeletal: Patient is bilateral above-knee amputee. There is some stump infection with possible osteomyelitis.. Endocrine: No recent polyuria, polydipsia, recent heat or cold intolerance. Physical Exam Vital Signs: Temp Pulse Resp BP Pulse Ox 98.1 F 75 18 89/46 L 100 09/02/17 15:45 09/02/17 15:45 09/02/17 15:45 09/02/17 15:45 09/02/17 15:45 Intake & Output 09/01/17 09/02/17 09/03/17 06:59 06:59 06:59 Intake Total 940 1160 1934 Output Total 1350 350 400 Balance -358 263 2231 Weight 42.7 kg 42.7 kg Exam: GENERAL: well-nourished and in no acute distress. Alert and oriented x3 HEAD: Atraumatic, normocephalic. EYES: Pupils equal round and reactive to light, extraocular movements intact, sclera anicteric, conjunctiva are normal. ENT: TMs normal, nares patent, oropharynx clear without exudates. Moist mucous membranes. No oral ulcerations or bleeding gums noted NECK: supple without lymphadenopathy. Trachea is central. No cervical or axillary lymphadenopathy noted. Carotids are 2+, JVD WNL LUNGS: Respiration seems nonlabored, no significant accessory muscle action noted. Breath sounds clear to auscultation bilaterally and equal noted. No wheezes rales or rhonchi noted. No significant dullness noted on percussion. CHEST: Palpation of the chest wall shows no significant chest wall tenderness. No other significant abnormalities noted. HEART: Dawson VOCATIONAL GUIDANCE COUNSELOR, No PSH, 1/6 FUNMILAYO aortic area, 1/6 mccormack systolic murmur mitral area, no rubs, no gallops. ABDOMEN: Soft, no significant tenderness appreciated, normoactive bowel sounds. No guarding, no rebound. No rigidity noted . No masses appreciated. EXTREMITIES: Pedal pulses are 1-2+, no calf tenderness noted. No finger clubbing or cyanosis. Cannot comment about edema NEUROLOGICAL: Focused neurological exam showed no significant neurologic deficit. Normal speech, no focal weakness appreciated. PSYCH: Normal mood, normal affect. Judgment and insight within normal limits. SKIN: No significant rash consistent with SLE involvement of the skin. MUSCULOSKELETAL EXAM: Bilateral above-knee amputation noted. Both stumps are bandaged. Results Laboratory Results: 09/02/17 02:35 09/02/17 02:35 09/02/17 09/02/17 09/02/17 02:35 02:35 02:35 WBC 3.0 L RBC 3.18 L Hgb 8.5 L Hct 25.2 L MCV 79 L MCH 26.8 L MCHC 33.9 RDW 16.6 H Plt Count 193 Seg Neutrophils % 59.3 Lymphocytes % 29.8 Monocytes % 7.8 Eosinophils % 2.5 Basophils % 0.6 Absolute Neutrophils 1.8 Absolute Lymphocytes 0.9 Absolute Monocytes 0.2 Absolute Eosinophils 0.1 Absolute Basophils 0.0 Sodium 141.8 Potassium 4.3 Chloride 104 Carbon Dioxide 25 Anion Gap 13 BUN 10 Creatinine 0.53 Est GFR ( Amer) > 60 Est GFR (Non-Af Amer) > 60 Glucose 77 Calcium 8.9 Total Bilirubin 0.4 AST 60 H ALT 73 H Alkaline Phosphatase 94 Total Protein 8.0 Albumin 4.0 Blood Type O POSITIVE Antibody Screen NEGATIVE EKG Comments: Sinus tachycardia with minor nonspecific T-wave changes noted Impressions: Femur X-Ray 08/28/17 10:15 IMPRESSION: Relatively intact left mid leg amputation site. Findings as above. Surveillance followup radiographs may prove helpful to exclude developing osteomyelitis. Lower Extremity MRI 08/31/17 12:30 IMPRESSION: 1. Bilateral amputations with minimal reactive bone edema and regional soft tissue edema without drainable abscess. Doubt osteomyelitis, marrow signal changes may simply be related to overlying soft tissue infection and irritation. Surveillance followup radiographs to assess for progressive bone resorption recommended. Progressive bone lysis would suggest osteomyelitis. Chest X-Ray 09/02/17 00:00 IMPRESSION: NO ACUTE RADIOGRAPHIC FINDING IN THE CHEST. PREVIOUSLY SEEN RIGHT- SIDED INFILTRATE HAS CLEARED. Assessment & Plan - Diagnosis (1) Tachycardia Is this a current diagnosis for this admission?: Yes (2) Abnormal electrocardiogram Is this a current diagnosis for this admission?: Yes (3) Essential hypertension Is this a current diagnosis for this admission?: Yes (4) SLE (systemic lupus erythematosus) Qualifiers: Systemic lupus erythematosus type: unspecified Systemic lupus erythematosus organ involvement: unspecified Qualified Code(s): M32.9 - Systemic lupus erythematosus, unspecified Is this a current diagnosis for this admission?: Yes (5) Preoperative cardiovascular examination Is this a current diagnosis for this admission?: Yes - Notes Notes: Preop cardiovascular examination: Patient has been noted to have some nonspecific ST-T wave changes. Patient however without any chest pain. At this point will obtain a 2D echo. Recommend statin therapy. Beta-blockers seems to be relatively contraindicated in this patient. May consider verapamil therapy if LVEF is normal. Hypertension: Recommend good control of blood pressure. SLE: Patient has progressive disease. Overall prognosis is guarded. Patient does represent increased risk because of mainly her general status. Surgeons can proceed if they feel surgical approach is indicated. Tachycardia: Most likely related to anxiety and underlying general debility. Beta-blockers unfortunately may be relatively contraindicated. 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 Will obtain a 2D echocardiogram. Hypertension: Currently blood pressure well controlled. SLE: Will leave management to compliance director and other specialist. Peripheral vascular disease: Patient may have microvascular disease from connective tissue disorder. Avoid cold exposure. Patient has been advised avoid tobacco use in any form. - Time Time Spent: 30 to 50 Minutes - More than 50% of the time spent coordinating care , discussing management plans with involved caregivers. Management plans discussed with involved personnels. Medical decision making was of moderate to high complexity, patient's has multiple comorbidities. Medications reviewed and adjusted accordingly: Yes
[2017-09-02 22:21] LABS: CHOLESTEROL 173.18 mg/dL (0-200); TRIGLYCERIDES 90 mg/dL (<150)
[2017-09-02 22:32] LABS: DIRECT LDL 70 mg/dL (<100)
[2017-09-03] MEDS: MORPHINE SULFATE 10 MG/ML INJ IV PRN ×5 (01:09→19:50)
[2017-09-03] MEDS: PIPERACILLIN SODIUM/TAZOBACTAM 3.375 GM in NORMAL SALINE 100 ML IV SCH ×4 (02:57→21:42)
[2017-09-03 05:06] LABS: ABSOLUTE EOSINOPHILS # (AUTO) 0.1 10^3/uL (0.0-0.6); ABSOLUTE LYMPHOCYTES (AUTO) 0.9 10^3/uL (0.5-4.7); ABSOLUTE MONOCYTES (AUTO) 0.2 10^3/uL (0.1-1.4); ABSOLUTE NEUT (AUTO) 1.4 10^3/uL (1.7-8.2); BASOPHILS % (AUTO) 0.6 % (0-2); EOSINOPHILS % (AUTO) 3.4 % (0-6); HEMATOCRIT 25.3 % (36.0-47.0); HEMOGLOBIN 8.4 g/dL (12.0-15.5); LYMPHOCYTES % (AUTO) 35.1 % (13-45); MEAN CORPUSCULAR HEMOGLOBIN 26.2 pg (27.0-33.4); MEAN CORPUSCULAR HGB CONC 33.2 g/dL (32.0-36.0); MEAN CORPUSCULAR VOLUME 79 fl (80-97); MONOCYTES % (AUTO) 7.8 % (3-13); PLATELET COUNT 185 10^3/uL (150-450); RED CELL DISTRIBUTION WIDTH 16.6 % (11.5-14.0); SEGMENTED NEUTROPHILS % (AUTO) 53.1 % (42-78); TOTAL CELLS COUNTED % (AUTO) 100 %; WHITE BLOOD COUNT 2.6 10^3/uL (4.0-10.5)
[2017-09-03 05:27] LABS: ALANINE AMINOTRANSFERASE 74 U/L (9-52); ALBUMIN 3.7 g/dL (3.5-5.0); ALKALINE PHOSPHATASE 109 U/L (38-126); ASPARTATE AMINO TRANSFERASE 47 U/L (14-36); BILIRUBIN,DIRECT 0.4 mg/dL (0.0-0.4); BILIRUBIN,TOTAL 0.4 mg/dL (0.2-1.3); BLOOD UREA NITROGEN 8 mg/dL (7-20); CALCIUM 9.1 mg/dL (8.4-10.2); CARBON DIOXIDE 26 mmol/L (22-30); CHLORIDE 105 mmol/L (98-107); GLUCOSE 79 mg/dL (75-110); POTASSIUM 4.4 mmol/L (3.6-5.0); TOTAL PROTEIN 7.8 g/dL (6.3-8.2)
[2017-09-03 05:33] LABS: ANION GAP 11 (5-19)
--- NOTE | 2017-09-03 09:33 | EKG REPORT ---
SEVERITY:- ABNORMAL ECG - SINUS RHYTHM BORDERLINE LEFT AXIS DEVIATION CONSIDER ANTEROSEPTAL INFARCT BORDERLINE T ABNORMALITIES, INFERIOR LEADS : Confirmed by: Ruy Carranza 03-Sep-2017 09:32:38
--- NOTE | 2017-09-03 09:33 | EKG REPORT ---
SEVERITY:- BORDERLINE ECG - SINUS RHYTHM BORDERLINE T WAVE ABNORMALITIES : Confirmed by: Ruy Carranza 03-Sep-2017 09:32:29
[2017-09-03] MEDS: ASPIRIN 81 MG TABLET, CHEWABLE PO SCH (10:38)
--- NOTE | 2017-09-03 11:43 | PDOC PROGRESS REPORT ---
Subjective Progress Note for:: 09/03/17 Subjective:: No complaints overnight. The patient had surgery 2 days ago and is doing well. She is scheduled for surgery again today. Physical Exam Vital Signs: Temp Pulse Resp BP Pulse Ox 97.9 F 59 L 16 116/66 100 09/03/17 08:02 09/03/17 08:02 09/03/17 08:02 09/03/17 08:02 09/03/17 08:02 Intake & Output 09/02/17 09/03/17 09/04/17 06:59 06:59 06:59 Intake Total 1160 3199 Output Total 350 2400 Balance 810 799 Weight 42.7 kg 42.3 kg GENERAL: This is a well-developed chronically ill appearing -[place] female resting in bed watching TV currently in no acute distress. HEART: Regular rate and rhythm. No murmurs, rubs or gallops. LUNGS: Clear to auscultation bilaterally with equal rise and fall of the chest. ABDOMEN: Soft, nontender, nondistended with normoactive bowel sounds EXTREMETIES: No clubbing or cyanosis. The patient has bilateral AKA. Her index finger on the left is necrotic and falling off. It is currently bandaged. Pulses are 1+. NEURO: Awake, alert and oriented 3. Cranial nerves II through XII are grossly intact. Skin: The patient's stumps are currently wrapped in gauze. Results Laboratory Results: 09/03/17 04:25 09/03/17 04:25 09/02/17 09/02/17 09/03/17 02:35 02:35 04:25 WBC 2.6 L RBC 3.20 L Hgb 8.4 L Hct 25.3 L MCV 79 L MCH 26.2 L MCHC 33.2 RDW 16.6 H Plt Count 185 Seg Neutrophils % 53.1 Lymphocytes % 35.1 Monocytes % 7.8 Eosinophils % 3.4 Basophils % 0.6 Absolute Neutrophils 1.4 L Absolute Lymphocytes 0.9 Absolute Monocytes 0.2 Absolute Eosinophils 0.1 Absolute Basophils 0.0 Sodium Potassium Chloride Carbon Dioxide Anion Gap BUN Creatinine Est GFR ( Amer) Est GFR (Non-Af Amer) Glucose Calcium Total Bilirubin AST ALT Alkaline Phosphatase Total Protein Albumin Triglycerides 90 Cholesterol 173.18 LDL Cholesterol Direct 70 VLDL Cholesterol 18.0 HDL Cholesterol 62 Blood Type O POSITIVE Antibody Screen NEGATIVE 09/03/17 04:25 WBC RBC Hgb Hct MCV MCH MCHC RDW Plt Count Seg Neutrophils % Lymphocytes % Monocytes % Eosinophils % Basophils % Absolute Neutrophils Absolute Lymphocytes Absolute Monocytes Absolute Eosinophils Absolute Basophils Sodium 142.0 Potassium 4.4 Chloride 105 Carbon Dioxide 26 Anion Gap 11 BUN 8 Creatinine 0.57 Est GFR ( Amer) > 60 Est GFR (Non-Af Amer) > 60 Glucose 79 Calcium 9.1 Total Bilirubin 0.4 AST 47 H ALT 74 H Alkaline Phosphatase 109 Total Protein 7.8 Albumin 3.7 Triglycerides Cholesterol LDL Cholesterol Direct VLDL Cholesterol HDL Cholesterol Blood Type Antibody Screen 08/31/17 18:45 Leg - Above Knee Amputation Site Gram Stain - Final Impressions: Femur X-Ray 08/28/17 10:15 IMPRESSION: Relatively intact left mid leg amputation site. Findings as above. Surveillance followup radiographs may prove helpful to exclude developing osteomyelitis. Lower Extremity MRI 08/31/17 12:30 IMPRESSION: 1. Bilateral amputations with minimal reactive bone edema and regional soft tissue edema without drainable abscess. Doubt osteomyelitis, marrow signal changes may simply be related to overlying soft tissue infection and irritation. Surveillance followup radiographs to assess for progressive bone resorption recommended. Progressive bone lysis would suggest osteomyelitis. Chest X-Ray 09/02/17 00:00 IMPRESSION: NO ACUTE RADIOGRAPHIC FINDING IN THE CHEST. PREVIOUSLY SEEN RIGHT- SIDED INFILTRATE HAS CLEARED. Assessment & Plan - Diagnosis (1) Ulcer of right lower extremity Plan: Patient will go to the OR for incision and debridement again tomorrow she is currently on Cipro. I will discontinue this and start Zosyn. General surgery is following. She is currently receiving as needed Percocet every 6 hours. This is managed by surgery. Status post ID (2) Alcohol use Plan: Patient's last use was 3 months ago. Recommend continued cessation. (3) Cocaine abuse Plan: The patient states last use was 3 months ago. It should be noted that her UDS was positive for cocaine on August 15. Recommend continued cessation. (4) Tobacco abuse Plan: Recommend continued cessation. Last use was 3 months ago (6) Essential hypertension Is this a current diagnosis for this admission?: Yes Plan: Blood pressures have been very reasonable. (7) SLE (systemic lupus erythematosus) Qualifiers: Systemic lupus erythematosus type: unspecified Systemic lupus erythematosus organ involvement: unspecified Qualified Code(s): M32.9 - Systemic lupus erythematosus, unspecified Is this a current diagnosis for this admission?: Yes Plan: There are no home medications listed. We will need to verify with pharmacy. The patient is not currently receiving any medications.
--- NOTE | 2017-09-03 13:08 | PDOC PROGRESS REPORT ---
Subjective Progress Note for:: 09/03/17 Subjective:: Patient doing about the same as yesterday. She is scheduled for surgery later on today. Patient did have a 2D echocardiogram which showed normal LVEF. No significant valvular abnormalities noted. Patient has mild pulmonary hypertension and possible mild enlargement of the right ventricle. Patient cleared for surgery based on echocardiogram report. EKG changes could be just related to RVH. Physical Exam Vital Signs: Temp Pulse Resp BP Pulse Ox 98.1 F 56 L 16 113/62 100 09/03/17 11:58 09/03/17 11:58 09/03/17 11:58 09/03/17 11:58 09/03/17 11:58 Intake & Output 09/02/17 09/03/17 09/04/17 06:59 06:59 06:59 Intake Total 1160 3199 Output Total 350 2400 Balance 810 799 Weight 42.7 kg 42.3 kg Exam: GENERAL: well-nourished and in no acute distress. Alert and oriented x3 HEAD: Atraumatic, normocephalic. EYES: Pupils equal round and reactive to light, extraocular movements intact, sclera anicteric, conjunctiva are normal. ENT: TMs normal, nares patent, oropharynx clear without exudates. Moist mucous membranes. No oral ulcerations or bleeding gums noted NECK: supple without lymphadenopathy. Trachea is central. No cervical or axillary lymphadenopathy noted. Carotids are 2+, JVD WNL LUNGS: Respiration seems nonlabored, no significant accessory muscle action noted. Breath sounds clear to auscultation bilaterally and equal noted. No wheezes rales or rhonchi noted. No significant dullness noted on percussion. CHEST: Palpation of the chest wall shows no significant chest wall tenderness. No other significant abnormalities noted. HEART: [place] [employer], No PSH, 1/6 FUNMILAYO aortic area, 1/6 mccormack systolic murmur mitral area, no rubs, no gallops. ABDOMEN: Soft, no significant tenderness appreciated, normoactive bowel sounds. No guarding, no rebound. No rigidity noted . No masses appreciated. EXTREMITIES: Pedal pulses are 1-2+, no calf tenderness noted. No clubbing or cyanosis. Bilateral above-knee amputation noted. NEUROLOGICAL: Focused neurological exam showed no significant neurologic deficit. Normal speech, no focal weakness appreciated. PSYCH: Normal mood, normal affect. Judgment and insight within normal limits. SKIN: No significant ecchymosis, skin changes with SLE involvement noted. MUSCULOSKELETAL EXAM: No significant joint swelling noted. Results Laboratory Results: 09/03/17 04:25 09/03/17 04:25 09/02/17 09/02/17 09/03/17 02:35 02:35 04:25 WBC 2.6 L RBC 3.20 L Hgb 8.4 L Hct 25.3 L MCV 79 L MCH 26.2 L MCHC 33.2 RDW 16.6 H Plt Count 185 Seg Neutrophils % 53.1 Lymphocytes % 35.1 Monocytes % 7.8 Eosinophils % 3.4 Basophils % 0.6 Absolute Neutrophils 1.4 L Absolute Lymphocytes 0.9 Absolute Monocytes 0.2 Absolute Eosinophils 0.1 Absolute Basophils 0.0 Sodium Potassium Chloride Carbon Dioxide Anion Gap BUN Creatinine Est GFR ( Amer) Est GFR (Non-Af Amer) Glucose Calcium Total Bilirubin AST ALT Alkaline Phosphatase Total Protein Albumin Triglycerides 90 Cholesterol 173.18 LDL Cholesterol Direct 70 VLDL Cholesterol 18.0 HDL Cholesterol 62 Blood Type O POSITIVE Antibody Screen NEGATIVE 09/03/17 04:25 WBC RBC Hgb Hct MCV MCH MCHC RDW Plt Count Seg Neutrophils % Lymphocytes % Monocytes % Eosinophils % Basophils % Absolute Neutrophils Absolute Lymphocytes Absolute Monocytes Absolute Eosinophils Absolute Basophils Sodium 142.0 Potassium 4.4 Chloride 105 Carbon Dioxide 26 Anion Gap 11 BUN 8 Creatinine 0.57 Est GFR ( Amer) > 60 Est GFR (Non-Af Amer) > 60 Glucose 79 Calcium 9.1 Total Bilirubin 0.4 AST 47 H ALT 74 H Alkaline Phosphatase 109 Total Protein 7.8 Albumin 3.7 Triglycerides Cholesterol LDL Cholesterol Direct VLDL Cholesterol HDL Cholesterol Blood Type Antibody Screen 08/31/17 18:45 Leg - Above Knee Amputation Site Gram Stain - Final EKG Comments: EKG today shows no acute ST-T wave changes. Impressions: Femur X-Ray 08/28/17 10:15 IMPRESSION: Relatively intact left mid leg amputation site. Findings as above. Surveillance followup radiographs may prove helpful to exclude developing osteomyelitis. Lower Extremity MRI 08/31/17 12:30 IMPRESSION: 1. Bilateral amputations with minimal reactive bone edema and regional soft tissue edema without drainable abscess. Doubt osteomyelitis, marrow signal changes may simply be related to overlying soft tissue infection and irritation. Surveillance followup radiographs to assess for progressive bone resorption recommended. Progressive bone lysis would suggest osteomyelitis. Chest X-Ray 09/02/17 00:00 IMPRESSION: NO ACUTE RADIOGRAPHIC FINDING IN THE CHEST. PREVIOUSLY SEEN RIGHT- SIDED INFILTRATE HAS CLEARED. Assessment & Plan - Diagnosis (1) Tachycardia Is this a current diagnosis for this admission?: Yes (2) Abnormal electrocardiogram Is this a current diagnosis for this admission?: Yes (3) Essential hypertension Is this a current diagnosis for this admission?: Yes (4) SLE (systemic lupus erythematosus) Qualifiers: Systemic lupus erythematosus type: unspecified Systemic lupus erythematosus organ involvement: unspecified Qualified Code(s): M32.9 - Systemic lupus erythematosus, unspecified Is this a current diagnosis for this admission?: Yes (5) Preoperative cardiovascular examination Is this a current diagnosis for this admission?: Yes - Notes Notes: Patient cleared for surgery based on echocardiogram and EKG as well as patient not having any cardiac related symptoms. Will be happy to take care of any postop cardiac problems. Dr. Rodriguez should be here tomorrow. Tachycardia: Most likely related to anxiety and underlying general debility. Beta-blockers unfortunately may be relatively contraindicated. Tachycardia has improved. 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 2D echo results reviewed. Hypertension: Currently blood pressure well controlled. SLE: Will leave management to patient information coordinator and other specialist. Peripheral vascular disease: Patient may have microvascular disease from connective tissue disorder. Avoid cold exposure. Patient has been advised avoid tobacco use in any form. - Time Time with patient: 15-25 minutes Medications reviewed and adjusted accordingly: Yes
[2017-09-03] MEDS ORDERED: MIDAZOLAM 2 MG/2 ML INJ ONE (16:45)
[2017-09-03] MEDS ORDERED: PROPOFOL INJ 200 MG/20 ML VIAL IV ONE (16:45)
[2017-09-03] MEDS ORDERED: LIDOCAINE 0.5% INJ-PF (5 MG/ML) 50 ML SDV ONE (16:48)
[2017-09-03] MEDS ORDERED: FENTANYL CITRATE INJ/PF 100 MCG/2 ML AMPUL ONE (18:21)
[2017-09-03] MEDS: MORPHINE SULFATE 10 MG/ML INJ ONE ×2 (19:45→19:55)
[2017-09-03] MEDS ORDERED: ONDANSETRON HCL INJ/PF 4 MG/2 ML SDV IV PRN (19:50)
--- NOTE | 2017-09-03 20:01 | RADIOLOGY REPORT (SQ) ---
EXAM DESCRIPTION: CHEST SINGLE VIEW COMPLETED DATE/TIME: 09/03/2017 7:54 pm REASON FOR STUDY: post central line placement COMPARISON: 09/02/2017 EXAM PARAMETERS: NUMBER OF VIEWS: One view. TECHNIQUE: Single frontal radiographic view of the chest acquired. RADIATION DOSE: NA LIMITATIONS: None. FINDINGS: LUNGS AND PLEURA: No opacities, masses or pneumothorax. No pleural effusion. MEDIASTINUM AND HILAR STRUCTURES: No masses. Contour normal. HEART AND VASCULAR STRUCTURES: Heart normal in size. Normal vasculature. BONES: No acute findings. HARDWARE: Right IJ venous catheter terminates within the right atrium. OTHER: No other significant finding. IMPRESSION: NO ACUTE RADIOGRAPHIC FINDING IN THE CHEST. RIGHT IJ VENOUS CATHETER TERMINATES WITHIN THE RIGHT ATRIUM. CONSIDER PULLING BACK 4 TO 5 CM. TECHNICAL DOCUMENTATION: JOB ID: [id number] [employer]- All Rights Reserved
--- NOTE | 2017-09-03 20:08 | OPERATIVE REPORT E ---
Operative Report NAME: TAYLOR MACKEY : 1975 AGE: 42Y DATE OF SURGERY: 09/03/2017 ROOM: 425 PREOPERATIVE DIAGNOSES: 1. LEFT AKA AMPUTATION STUMP WITH A BONE RIGHT AT THE SKIN EDGE AND PREVIOUS INFECTION. 2. DRY GANGRENE OF THE LEFT FOURTH FINGERTIP. POSTOPERATIVE DIAGNOSES: 1. LEFT AKA AMPUTATION STUMP WITH A BONE RIGHT AT THE SKIN EDGE AND PREVIOUS INFECTION. 2. DRY GANGRENE OF THE LEFT FOURTH FINGERTIP. OPERATIONS: 1. Revision of left AKA amputation. 2. Amputation of the left fourth finger distal phalanx. SURGEON: ANTHONY CHANDLER M.D. ANESTHESIA: Spinal and sedation and local anesthesia. INDICATION: This is a 42-year-old female who underwent left AKA amputation in [place] about 3 months ago. Amputation site noted a small amount of drainage for the past 2 weeks, while patient was in the emergency room. Initial culture of the fluid was positive for pseudomonas. It was further drained and eventually brought back to the operating room about 5 days ago. Left AKA amputation stump opened and cultures obtained, though this time, results came back negative. The area was debrided and then a wound V.A.C. placed. Cultures came back negative. Since the tip of the femoral bone was right close to the skin, it is best to do a revision to have a better wound healing. 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 PROCEDURE: Patient was placed in supine position, after adequate spinal anesthesia. The left AKA stump was then prepped and draped in the usual sterile fashion, as well as the left fourth fingertip. Actually, the left hand was prepped and draped in the usual sterile fashion. Appropriate timeout was called. Following this, the previous incision on the AKA amputation was then further incised and opened. The bone tip noted to be right at the edge of the wound. The wound was initially opened up in the mid part at this time and extended laterally and medially. There was good granulation tissue around the femoral bone tip. Next, the femur was then cleaned of the periosteum with the use of a periosteal elevator. It was then divided with a portable saw about 1-1/2 inches. The bone was further divided another 1/2 inch for better approximation of the wound edges. The skin edges of the incision were initially trimmed right on the scar area, also to have a good fresh edge for closure. Hemostasis was then obtained with cautery. The periosteum and part of the fascia were then reapproximated over the bone with initial [id number] suture using 0 Vicryl. Another layer of simple interrupted sutures on the more superficial fascial layer was done using the same 0 Vicryl sutures. Next, the area of the exposed subcutaneous, fascia and muscle were then pulse lavaged with about 4 liters of saline. Further closure of the subcutaneous and fascia were done using 0 Vicryl sutures, and a Woodrow drain was placed on each side of the muscle and fascia and brought out through the lateral edge of the wound, and the other placed right at the center of the wound. Next, the skin edges were then reapproximated with 3-0 Prolene. A simple stitch was placed from the skin to the Prospect drain to keep the Woodrow drain from being pulled out or being sucked in. This was done for the 2 Prospect drains. Adequate hemostasis was noted. Next, sterile 4 x 4's and a 4-inch Shanta were then used to wrap the stump. Following this, attention was then directed to the left fourth finger. Local anesthesia was infiltrated along the margin of the distal and middle phalanx with 0.5% lidocaine. Also, patient given a little bit more deep sedation by Anesthesia. A circumferential incision was made just below the gangrenous area of the left fourth fingertip. The bone was then disarticulated. There appeared to be a very good blood supply to the skin edges and the end of the amputation area. Part of the bone was removed and rongeured uneventfully. The bone was disarticulated. Hemostasis obtained with the use of cautery. A single suture at the subcutaneous and fascia was used to reapproximate. The wound edges were then reapproximated with simple 3-0 nylon sutures. Sterile dressings were then placed over the operative site. Needle, instrument and sponge counts were all correct. The total estimated blood loss for both amputation sites was roughly about 30 mL. Patient tolerated procedure well. Needle, instrument and sponge counts were all correct. Patient needed to have an IV line restarted, since the remaining IV got pulled out. I will be placing a central line while the patient is in the OR. DICTATING PHYSICIAN: ANTHONY CHANDLER M.D. [id number] PHY#: [id number] ID: [id number] JOB#: [id number] ACCT: [id number] cc:ANTHONY CHANDLER M.D. >
--- NOTE | 2017-09-03 20:43 | OPERATIVE REPORT E ---
Operative Report NAME: TAYLOR MACKEY : 1975 AGE: 42Y DATE OF SURGERY: 09/03/2017 ROOM: 425 PREOPERATIVE DIAGNOSIS: Poor veins for IV access. POSTOPERATIVE DIAGNOSIS: Poor veins for IV access. PROCEDURE: Placement of central line, right internal jugular vein, under ultrasound guidance. SURGEON: ANTHONY CHANDLER M.D. ANESTHESIA: Local. INDICATION: This is a 42-year-old female who just underwent revision left AKA and amputation left fourth finger. The IV was inadvertently disconnected or removed and Anesthesia has had a hard time placing a new one in the OR. Because of this a central line is being placed. DESCRIPTION OF PROCEDURE: Patient in slight Trendelenburg position, the right neck was then prepped and draped in the usual sterile fashion. With the use of the ultrasound, the right internal jugular vein was then identified and local anesthesia infiltrated in the entrance site to the jugular vein. The jugular vein was subsequently punctured with the guidewire of ultrasound. A guidewire was then placed through the needle into the area of the superior vena cava. The needle was removed and the puncture site dilated. A triple-lumen catheter was inserted up to distance of about 15 cm. All the 3 port sites were aspirated of blood easily and infused saline easily. The catheter was then anchored to the skin with 3-0 silk and a Biopatch placed at the insertion site. A transparent dressing was then placed over the operative site. The patient tolerated the procedure well. A chest x-ray will be obtained for placement. DICTATING PHYSICIAN: ANTHONY CHANDLER M.D. [id number] PHY#: [id number] ID: [id number] JOB#: [id number] ACCT: [id number] cc:ANTHONY CHANDLER M.D. >
[2017-09-03] MEDS: KETOROLAC TROMETHAMINE INJ/PF 30 MG/1 ML SDV IV SCH (21:16)
[2017-09-03] MEDS: HYDROMORPHONE HCL INJ/PF 2 MG/ML AMPULE IV PRN (21:16)
[2017-09-03] MEDS: NORMAL SALINE 1000 ML 1,000 ML IV PRN (21:43)
[2017-09-03] MEDS: OXYCODONE-ACETAMINOPHEN 5-325 MG TABLET PO PRN (23:08)
[2017-09-04] MEDS: HYDROMORPHONE HCL INJ/PF 2 MG/ML AMPULE IV PRN ×5 (01:14→18:50)
[2017-09-04] MEDS ORDERED: DIPHENHYDRAMINE HCL 25 MG CAPSULE PO PRN (01:33)
[2017-09-04] MEDS: PIPERACILLIN SODIUM/TAZOBACTAM 3.375 GM in NORMAL SALINE 100 ML IV SCH ×4 (03:47→21:52)
[2017-09-04] MEDS: OXYCODONE-ACETAMINOPHEN 5-325 MG TABLET PO PRN ×4 (03:47→21:53)
[2017-09-04 05:49] LABS: ABSOLUTE EOSINOPHILS # (AUTO) 0.1 10^3/uL (0.0-0.6); ABSOLUTE LYMPHOCYTES (AUTO) 0.8 10^3/uL (0.5-4.7); ABSOLUTE MONOCYTES (AUTO) 0.2 10^3/uL (0.1-1.4); ABSOLUTE NEUT (AUTO) 2.2 10^3/uL (1.7-8.2); BASOPHILS % (AUTO) 0.3 % (0-2); EOSINOPHILS % (AUTO) 2.6 % (0-6); HEMATOCRIT 19.4 % (36.0-47.0); LYMPHOCYTES % (AUTO) 23.8 % (13-45); MEAN CORPUSCULAR HEMOGLOBIN 26.2 pg (27.0-33.4); MEAN CORPUSCULAR VOLUME 79 fl (80-97); MONOCYTES % (AUTO) 7.2 % (3-13); PLATELET COUNT 158 10^3/uL (150-450); RED BLOOD COUNT 2.44 10^6/uL (3.72-5.28); SEGMENTED NEUTROPHILS % (AUTO) 66.1 % (42-78); TOTAL CELLS COUNTED % (AUTO) 100 %; WHITE BLOOD COUNT 3.4 10^3/uL (4.0-10.5)
[2017-09-04 06:12] LABS: HEMOGLOBIN 6.4 g/dL (12.0-15.5)
[2017-09-04 06:21] LABS: ANISOCYTOSIS 1+; POIKILOCYTOSIS SLIGHT
[2017-09-04 06:22] LABS: OVALOCYTES SLIGHT; PLATELET COMMENT ADEQUATE; PLATELET GIANT PRESENT; TEAR DROP CELLS SLIGHT
[2017-09-04] MEDS: KETOROLAC TROMETHAMINE INJ/PF 30 MG/1 ML SDV IV SCH ×3 (06:22→21:53)
[2017-09-04 06:53] LABS: ANION GAP 10 (5-19); BLOOD UREA NITROGEN 8 mg/dL (7-20); CALCIUM 8.2 mg/dL (8.4-10.2); CARBON DIOXIDE 25 mmol/L (22-30); CHLORIDE 104 mmol/L (98-107); GLUCOSE 139 mg/dL (75-110); POTASSIUM 3.8 mmol/L (3.6-5.0); SODIUM 138.7 mmol/L (137-145)
[2017-09-04] MEDS: ASPIRIN 81 MG TABLET, CHEWABLE PO SCH (09:26)
--- NOTE | 2017-09-04 12:03 | PDOC PROGRESS REPORT ---
Subjective Progress Note for:: 09/04/17 Subjective:: reason for visit: f/u medical management SLE, tachycardia, HTN and skin ulcer she reports feeling well today and is without complaint on complete ROS. her pain is well controlled. her H/H is noted quite low and surgery is managing with transfusion by the time I arrived to evaluate. ROS: all systems reviewed, as above, remaining systems negative including no melena, hematochezia, hematemesis, hematuria, bleeding gums, or from her wounds. Physical Exam Vital Signs: Temp Pulse Resp BP Pulse Ox 97.4 F 70 16 103/69 100 09/04/17 08:51 09/04/17 08:51 09/04/17 04:52 09/04/17 09:45 09/04/17 08:51 Intake & Output 09/03/17 09/04/17 09/05/17 06:59 06:59 06:59 Intake Total 3199 6468 300 Output Total 2400 5735 Balance 799 733 300 Weight 42.3 kg General appearance: PRESENT: no acute distress, thin Eye exam: PRESENT: EOMI, PERRLA Mouth exam: PRESENT: moist, neck supple Neck exam: PRESENT: full ROM. ABSENT: tenderness Respiratory exam: PRESENT: clear to auscultation rei. ABSENT: accessory muscle use Cardiovascular exam: PRESENT: RRR, systolic murmur - 2/6 holosystolic murmur heard in all enriquez. ABSENT: tachycardia GI/Abdominal exam: PRESENT: normal bowel sounds, soft. ABSENT: tenderness Extremities exam: PRESENT: other - bilat AKA's without edema or erythema; bandages are c/d/i Neurological exam: PRESENT: alert, awake, oriented to person, oriented to place , oriented to time, oriented to situation Psychiatric exam: PRESENT: appropriate affect, normal mood Results Laboratory Results: 09/04/17 05:20 09/04/17 05:20 09/02/17 09/04/17 09/04/17 02:35 05:20 05:20 WBC 3.4 L RBC 2.44 L Hgb 6.4 L Hct 19.4 L MCV 79 L MCH 26.2 L MCHC 33.0 RDW 16.0 H Plt Count 158 Seg Neutrophils % 66.1 Lymphocytes % 23.8 Monocytes % 7.2 Eosinophils % 2.6 Basophils % 0.3 Absolute Neutrophils 2.2 Absolute Lymphocytes 0.8 Absolute Monocytes 0.2 Absolute Eosinophils 0.1 Absolute Basophils 0.0 Sodium 138.7 Potassium 3.8 Chloride 104 Carbon Dioxide 25 Anion Gap 10 BUN 8 Creatinine 0.53 Est GFR ( Amer) > 60 Est GFR (Non-Af Amer) > 60 Glucose 139 H Calcium 8.2 L Blood Type O POSITIVE Antibody Screen NEGATIVE 08/31/17 18:45 Leg - Above Knee Amputation Site Gram Stain - Final 08/31/17 18:45 Leg - Above Knee Amputation Site Wound Culture - Final Pseudomonas Aeruginosa No Anaerobic Organisms Impressions: Femur X-Ray 08/28/17 10:15 IMPRESSION: Relatively intact left mid leg amputation site. Findings as above. Surveillance followup radiographs may prove helpful to exclude developing osteomyelitis. Lower Extremity MRI 08/31/17 12:30 IMPRESSION: 1. Bilateral amputations with minimal reactive bone edema and regional soft tissue edema without drainable abscess. Doubt osteomyelitis, marrow signal changes may simply be related to overlying soft tissue infection and irritation. Surveillance followup radiographs to assess for progressive bone resorption recommended. Progressive bone lysis would suggest osteomyelitis. Chest X-Ray 09/03/17 00:00 IMPRESSION: NO ACUTE RADIOGRAPHIC FINDING IN THE CHEST. RIGHT IJ VENOUS CATHETER TERMINATES WITHIN THE RIGHT ATRIUM. CONSIDER PULLING BACK 4 TO 5 CM. Assessment & Plan - Diagnosis (1) Ulcer of right lower extremity Is this a current diagnosis for this admission?: Yes Plan: per surgery; continue dressing changes and IV abx at their direction (2) Tachycardia Is this a current diagnosis for this admission?: Yes Plan: stable; resolved, dr Carranza also following; continue current regimen (3) Tobacco abuse Is this a current diagnosis for this admission?: Yes (4) SLE (systemic lupus erythematosus) Qualifiers: Systemic lupus erythematosus type: unspecified Systemic lupus erythematosus organ involvement: unspecified Qualified Code(s): M32.9 - Systemic lupus erythematosus, unspecified Is this a current diagnosis for this admission?: Yes Plan: stable - Time Time Spent with patient: 15-24 minutes Medications reviewed and adjusted accordingly: Yes
--- NOTE | 2017-09-04 12:36 | PDOC PROGRESS REPORT ---
Subjective Progress Note for:: 09/04/17 Subjective:: No c/o; getting PRBC's form low Hb; HD stable Physical Exam Vital Signs: Temp Pulse Resp BP Pulse Ox 97.4 F 70 16 103/69 100 09/04/17 08:51 09/04/17 08:51 09/04/17 04:52 09/04/17 09:45 09/04/17 08:51 Intake & Output 09/03/17 09/04/17 09/05/17 06:59 06:59 06:59 Intake Total 3199 6429 300 Output Total 2404 5787 Balance 799 733 300 Weight 42.3 kg General appearance: PRESENT: no acute distress Musculoskeletal exam: PRESENT: other - Dressing R AKA, L AKA and left hand dry , intatc Results Laboratory Results: 09/04/17 05:20 09/04/17 05:20 09/02/17 09/04/17 09/04/17 02:35 05:20 05:20 WBC 3.4 L RBC 2.44 L Hgb 6.4 L Hct 19.4 L MCV 79 L MCH 26.2 L MCHC 33.0 RDW 16.0 H Plt Count 158 Seg Neutrophils % 66.1 Lymphocytes % 23.8 Monocytes % 7.2 Eosinophils % 2.6 Basophils % 0.3 Absolute Neutrophils 2.2 Absolute Lymphocytes 0.8 Absolute Monocytes 0.2 Absolute Eosinophils 0.1 Absolute Basophils 0.0 Sodium 138.7 Potassium 3.8 Chloride 104 Carbon Dioxide 25 Anion Gap 10 BUN 8 Creatinine 0.53 Est GFR ( Amer) > 60 Est GFR (Non-Af Amer) > 60 Glucose 139 H Calcium 8.2 L Blood Type O POSITIVE Antibody Screen NEGATIVE 08/31/17 18:45 Leg - Above Knee Amputation Site Gram Stain - Final 08/31/17 18:45 Leg - Above Knee Amputation Site Wound Culture - Final Pseudomonas Aeruginosa No Anaerobic Organisms Impressions: Femur X-Ray 08/28/17 10:15 IMPRESSION: Relatively intact left mid leg amputation site. Findings as above. Surveillance followup radiographs may prove helpful to exclude developing osteomyelitis. Lower Extremity MRI 08/31/17 12:30 IMPRESSION: 1. Bilateral amputations with minimal reactive bone edema and regional soft tissue edema without drainable abscess. Doubt osteomyelitis, marrow signal changes may simply be related to overlying soft tissue infection and irritation. Surveillance followup radiographs to assess for progressive bone resorption recommended. Progressive bone lysis would suggest osteomyelitis. Chest X-Ray 09/03/17 00:00 IMPRESSION: NO ACUTE RADIOGRAPHIC FINDING IN THE CHEST. RIGHT IJ VENOUS CATHETER TERMINATES WITHIN THE RIGHT ATRIUM. CONSIDER PULLING BACK 4 TO 5 CM. Assessment & Plan - Diagnosis (1) Abscess of left leg Is this a current diagnosis for this admission?: Yes Plan: S/P LEft AKA stump revision POD one, with drains; post op blood loss anemia, getting transfused PLAN: 1. Diet 2. Complete Tx 3. D/C drains in am left AKA stump 4. Continue Zosyn for Ps. [place]
--- NOTE | 2017-09-04 15:46 | EKG REPORT ---
SEVERITY:- BORDERLINE ECG - SINUS RHYTHM BORDERLINE LEFT AXIS DEVIATION BORDERLINE T WAVE ABNORMALITIES : Confirmed by: Ruy Carranza 04-Sep-2017 15:45:15
[2017-09-04 16:10] LABS: ABSOLUTE EOSINOPHILS # (AUTO) 0.1 10^3/uL (0.0-0.6); ABSOLUTE LYMPHOCYTES (AUTO) 0.7 10^3/uL (0.5-4.7); ABSOLUTE MONOCYTES (AUTO) 0.3 10^3/uL (0.1-1.4); ABSOLUTE NEUT (AUTO) 3.3 10^3/uL (1.7-8.2); BASOPHILS % (AUTO) 0.3 % (0-2); EOSINOPHILS % (AUTO) 2.4 % (0-6); HEMATOCRIT 28.5 % (36.0-47.0); LYMPHOCYTES % (AUTO) 16.6 % (13-45); MEAN CORPUSCULAR HEMOGLOBIN 28.3 pg (27.0-33.4); MEAN CORPUSCULAR HGB CONC 34.6 g/dL (32.0-36.0); MEAN CORPUSCULAR VOLUME 82 fl (80-97); PLATELET COUNT 161 10^3/uL (150-450); RED BLOOD COUNT 3.48 10^6/uL (3.72-5.28); RED CELL DISTRIBUTION WIDTH 15.9 % (11.5-14.0); SEGMENTED NEUTROPHILS % (AUTO) 74.7 % (42-78); TOTAL CELLS COUNTED % (AUTO) 100 %; WHITE BLOOD COUNT 4.4 10^3/uL (4.0-10.5)
[2017-09-04 16:12] LABS: HEMOGLOBIN 9.9 g/dL (12.0-15.5)
[2017-09-04] MEDS: FERROUS SULFATE 325 MG TABLET PO SCH (16:22)
[2017-09-04] MEDS: FAMOTIDINE 20 MG TABLET PO SCH (17:30)
[2017-09-05] MEDS: PIPERACILLIN SODIUM/TAZOBACTAM 3.375 GM in NORMAL SALINE 100 ML IV SCH ×4 (03:14→20:33)
[2017-09-05] MEDS: HYDROMORPHONE HCL INJ/PF 2 MG/ML AMPULE IV PRN ×5 (03:14→22:29)
[2017-09-05] MEDS: FAMOTIDINE 20 MG TABLET PO SCH ×2 (06:06→17:19)
[2017-09-05] MEDS: OXYCODONE-ACETAMINOPHEN 5-325 MG TABLET PO PRN ×4 (06:06→21:34)
[2017-09-05] MEDS: NORMAL SALINE 1000 ML 1,000 ML IV PRN ×2 (06:06→22:31)
[2017-09-05] MEDS: KETOROLAC TROMETHAMINE INJ/PF 30 MG/1 ML SDV IV SCH ×3 (06:06→21:34)
[2017-09-05 06:52] LABS: ABSOLUTE EOSINOPHILS # (AUTO) 0.1 10^3/uL (0.0-0.6); ABSOLUTE LYMPHOCYTES (AUTO) 0.7 10^3/uL (0.5-4.7); ABSOLUTE MONOCYTES (AUTO) 0.3 10^3/uL (0.1-1.4); ABSOLUTE NEUT (AUTO) 2.7 10^3/uL (1.7-8.2); BASOPHILS % (AUTO) 0.4 % (0-2); EOSINOPHILS % (AUTO) 3.1 % (0-6); HEMATOCRIT 26.8 % (36.0-47.0); LYMPHOCYTES % (AUTO) 17.5 % (13-45); MEAN CORPUSCULAR HEMOGLOBIN 27.5 pg (27.0-33.4); MEAN CORPUSCULAR HGB CONC 33.8 g/dL (32.0-36.0); MEAN CORPUSCULAR VOLUME 82 fl (80-97); MONOCYTES % (AUTO) 6.8 % (3-13); PLATELET COUNT 155 10^3/uL (150-450); RED BLOOD COUNT 3.29 10^6/uL (3.72-5.28); SEGMENTED NEUTROPHILS % (AUTO) 72.2 % (42-78); TOTAL CELLS COUNTED % (AUTO) 100 %; WHITE BLOOD COUNT 3.8 10^3/uL (4.0-10.5)
[2017-09-05 07:17] LABS: ANION GAP 11 (5-19); BLOOD UREA NITROGEN 5 mg/dL (7-20); CALCIUM 8.6 mg/dL (8.4-10.2); CARBON DIOXIDE 23 mmol/L (22-30); CHLORIDE 105 mmol/L (98-107); GLUCOSE 83 mg/dL (75-110); POTASSIUM 3.8 mmol/L (3.6-5.0)
[2017-09-05] MEDS: FERROUS SULFATE 325 MG TABLET PO SCH ×3 (07:50→17:18)
--- NOTE | 2017-09-05 09:02 | PDOC PROGRESS REPORT ---
Subjective Progress Note for:: 09/05/17 Subjective:: Patient is postoperative day 2 status post partial amputation left fourth finger , and stump revision left [id number] amputation. She remains on Zosyn for Pseudomonas aeruginosa growing from the left AKA stump. Physical Exam Vital Signs: Temp Pulse Resp BP Pulse Ox 98.0 F 72 16 137/82 H 100 09/05/17 07:16 09/05/17 07:16 09/05/17 07:16 09/05/17 07:16 09/05/17 07:16 Intake & Output 09/04/17 09/05/17 09/06/17 06:59 06:59 06:59 Intake Total 6468 3909 Output Total 5735 1500 Balance 733 2409 Musculoskeletal exam: PRESENT: other - Left fourth finger dressing removed; stitches intact; minimal amount of dried blood. Proximal skin appears viable. Stump dressings removed. On the right side patient has a chronic foul-smelling drainage Left AKA stump dressing removed. Woodrow drains removed uneventfully. Cavities sero-Gil is drainage irrigated with saline, then packed open with small portions of gauze. Dressings reapplied to both stumps. Results Laboratory Results: 09/05/17 06:00 09/05/17 06:00 09/02/17 09/04/17 09/05/17 02:35 15:50 06:00 WBC 4.4 3.8 L RBC 3.48 L 3.29 L Hgb 9.9 L D 9.0 L Hct 28.5 L 26.8 L MCV 82 82 MCH 28.3 27.5 MCHC 34.6 33.8 RDW 15.9 H 16.0 H Plt Count 161 155 Seg Neutrophils % 74.7 72.2 Lymphocytes % 16.6 17.5 Monocytes % 6.0 6.8 Eosinophils % 2.4 3.1 Basophils % 0.3 0.4 Absolute Neutrophils 3.3 2.7 Absolute Lymphocytes 0.7 0.7 Absolute Monocytes 0.3 0.3 Absolute Eosinophils 0.1 0.1 Absolute Basophils 0.0 0.0 Sodium Potassium Chloride Carbon Dioxide Anion Gap BUN Creatinine Est GFR ( Amer) Est GFR (Non-Af Amer) Glucose Calcium Blood Type O POSITIVE Antibody Screen NEGATIVE 09/05/17 06:00 WBC RBC Hgb Hct MCV MCH MCHC RDW Plt Count Seg Neutrophils % Lymphocytes % Monocytes % Eosinophils % Basophils % Absolute Neutrophils Absolute Lymphocytes Absolute Monocytes Absolute Eosinophils Absolute Basophils Sodium 139.0 Potassium 3.8 Chloride 105 Carbon Dioxide 23 Anion Gap 11 BUN 5 L Creatinine 0.49 L Est GFR ( Amer) > 60 Est GFR (Non-Af Amer) > 60 Glucose 83 Calcium 8.6 Blood Type Antibody Screen 09/03/17 17:36 Leg - Above Knee Amputation Site Gram Stain - Final 09/03/17 21:25 Nasophary (Mrsa Only) MRSA Surveillance Culture - Final NO MRSA RECOVERED 08/31/17 18:45 Leg - Above Knee Amputation Site Gram Stain - Final 08/31/17 18:45 Leg - Above Knee Amputation Site Wound Culture - Final Pseudomonas Aeruginosa No Anaerobic Organisms Impressions: Femur X-Ray 08/28/17 10:15 IMPRESSION: Relatively intact left mid leg amputation site. Findings as above. Surveillance followup radiographs may prove helpful to exclude developing osteomyelitis. Lower Extremity MRI 08/31/17 12:30 IMPRESSION: 1. Bilateral amputations with minimal reactive bone edema and regional soft tissue edema without drainable abscess. Doubt osteomyelitis, marrow signal changes may simply be related to overlying soft tissue infection and irritation. Surveillance followup radiographs to assess for progressive bone resorption recommended. Progressive bone lysis would suggest osteomyelitis. Chest X-Ray 09/03/17 00:00 IMPRESSION: NO ACUTE RADIOGRAPHIC FINDING IN THE CHEST. RIGHT IJ VENOUS CATHETER TERMINATES WITHIN THE RIGHT ATRIUM. CONSIDER PULLING BACK 4 TO 5 CM. Assessment & Plan - Diagnosis (1) Abscess of left leg Is this a current diagnosis for this admission?: Yes Plan: Patient is left AKA stump revision, with approximated, with 2 open areas designed for drainage; Superior in satisfactory condition. Patient is also status post left fourth distal digit amputation with wound healing satisfactorily. Plan: 1. Dressings reapplied today. 2. Continue Zosyn; sensitivities not run on pseudomonas aeruginosa growing from broth only. 3. Reinspect wounds tomorrow.
[2017-09-05] MEDS: ASPIRIN 81 MG TABLET, CHEWABLE PO SCH (10:37)
--- NOTE | 2017-09-05 12:44 | PDOC PROGRESS REPORT ---
Subjective Progress Note for:: 09/05/17 Subjective:: No complaints overnight. Patient is postop surgical intervention 2. She looks well. She is just coming back from going downstairs to have lunch with her family. She currently has no complaints and is status post 2 units of packed red blood cell transfusion yesterday. Physical Exam Vital Signs: Temp Pulse Resp BP Pulse Ox 98.0 F 72 16 137/82 H 100 09/05/17 07:16 09/05/17 07:16 09/05/17 07:16 09/05/17 07:16 09/05/17 07:16 Intake & Output 09/04/17 09/05/17 09/06/17 06:59 06:59 06:59 Intake Total 6468 3909 Output Total 5735 1500 Balance 733 2409 GENERAL: This is a well-developed chronically ill appearing -[place] female resting sitting up in bed socializing with her family.. HEART: Regular rate and rhythm. No murmurs, rubs or gallops. LUNGS: Clear to auscultation bilaterally with equal rise and fall of the chest. ABDOMEN: Soft, nontender, nondistended with normoactive bowel sounds EXTREMETIES: No clubbing or cyanosis. The patient has bilateral AKA. Her stumps are appropriately dressed. Her finger is also dressed. H NEURO: Awake, alert and oriented 3. Cranial nerves II through XII are grossly intact. Skin: The patient's stumps are currently wrapped in gauze. Results Laboratory Results: 09/05/17 06:00 09/05/17 06:00 09/02/17 09/04/17 09/05/17 02:35 15:50 06:00 WBC 4.4 3.8 L RBC 3.48 L 3.29 L Hgb 9.9 L D 9.0 L Hct 28.5 L 26.8 L MCV 82 82 MCH 28.3 27.5 MCHC 34.6 33.8 RDW 15.9 H 16.0 H Plt Count 161 155 Seg Neutrophils % 74.7 72.2 Lymphocytes % 16.6 17.5 Monocytes % 6.0 6.8 Eosinophils % 2.4 3.1 Basophils % 0.3 0.4 Absolute Neutrophils 3.3 2.7 Absolute Lymphocytes 0.7 0.7 Absolute Monocytes 0.3 0.3 Absolute Eosinophils 0.1 0.1 Absolute Basophils 0.0 0.0 Sodium Potassium Chloride Carbon Dioxide Anion Gap BUN Creatinine Est GFR ( Amer) Est GFR (Non-Af Amer) Glucose Calcium Blood Type O POSITIVE Antibody Screen NEGATIVE 09/05/17 06:00 WBC RBC Hgb Hct MCV MCH MCHC RDW Plt Count Seg Neutrophils % Lymphocytes % Monocytes % Eosinophils % Basophils % Absolute Neutrophils Absolute Lymphocytes Absolute Monocytes Absolute Eosinophils Absolute Basophils Sodium 139.0 Potassium 3.8 Chloride 105 Carbon Dioxide 23 Anion Gap 11 BUN 5 L Creatinine 0.49 L Est GFR ( Amer) > 60 Est GFR (Non-Af Amer) > 60 Glucose 83 Calcium 8.6 Blood Type Antibody Screen 09/03/17 17:36 Leg - Above Knee Amputation Site Gram Stain - Final 09/03/17 21:25 Nasophary (Mrsa Only) MRSA Surveillance Culture - Final NO MRSA RECOVERED 08/31/17 18:45 Leg - Above Knee Amputation Site Gram Stain - Final 08/31/17 18:45 Leg - Above Knee Amputation Site Wound Culture - Final Pseudomonas Aeruginosa No Anaerobic Organisms Impressions: Femur X-Ray 08/28/17 10:15 IMPRESSION: Relatively intact left mid leg amputation site. Findings as above. Surveillance followup radiographs may prove helpful to exclude developing osteomyelitis. Lower Extremity MRI 08/31/17 12:30 IMPRESSION: 1. Bilateral amputations with minimal reactive bone edema and regional soft tissue edema without drainable abscess. Doubt osteomyelitis, marrow signal changes may simply be related to overlying soft tissue infection and irritation. Surveillance followup radiographs to assess for progressive bone resorption recommended. Progressive bone lysis would suggest osteomyelitis. Chest X-Ray 09/03/17 00:00 IMPRESSION: NO ACUTE RADIOGRAPHIC FINDING IN THE CHEST. RIGHT IJ VENOUS CATHETER TERMINATES WITHIN THE RIGHT ATRIUM. CONSIDER PULLING BACK 4 TO 5 CM. Assessment & Plan - Diagnosis (1) Ulcer of right lower extremity Is this a current diagnosis for this admission?: Yes Plan: status post incision and drainage. Surgery following. (2) Alcohol use Plan: Patient's last use was 3 months ago. Recommend continued cessation. (3) Cocaine abuse Plan: The patient states last use was 3 months ago. It should be noted that her UDS was positive for cocaine on August 15. Recommend continued cessation. (4) Tobacco abuse Is this a current diagnosis for this admission?: Yes Plan: Recommend continued cessation. Last use was 3 months ago (6) Essential hypertension Is this a current diagnosis for this admission?: Yes Plan: Blood pressures have been very reasonable. (7) SLE (systemic lupus erythematosus) Qualifiers: Systemic lupus erythematosus type: unspecified Systemic lupus erythematosus organ involvement: unspecified Qualified Code(s): M32.9 - Systemic lupus erythematosus, unspecified Is this a current diagnosis for this admission?: Yes Plan: There are no home medications listed. We will need to verify with pharmacy. The patient is not currently receiving any medications. - Time Time Spent with patient: Less than 15 minutes
--- NOTE | 2017-09-05 16:34 | PDOC PROGRESS REPORT ---
Subjective Progress Note for:: 09/04/17 Subjective:: Patient did well with surgery. EKGs were reviewed. Echocardiogram results reviewed. EKG changes could be just related to RVH. Physical Exam Vital Signs: Temp Pulse Resp BP Pulse Ox 97.3 F 68 13 128/72 H 100 09/04/17 16:28 09/04/17 16:28 09/04/17 16:28 09/04/17 16:28 09/04/17 16:28 Intake & Output 09/03/17 09/04/17 09/05/17 06:59 06:59 06:59 Intake Total 3199 6429 2400 Output Total 2400 5735 900 Balance 936 027 8739 Weight 42.3 kg Exam: GENERAL: well-nourished and in no acute distress. Alert and oriented x3 HEAD: Atraumatic, normocephalic. EYES: Pupils equal round and reactive to light, extraocular movements intact, sclera anicteric, conjunctiva are normal. ENT: TMs normal, nares patent, oropharynx clear without exudates. Moist mucous membranes. No oral ulcerations or bleeding gums noted NECK: supple without lymphadenopathy. Trachea is central. No cervical or axillary lymphadenopathy noted. Carotids are 2+, JVD WNL LUNGS: Respiration seems nonlabored, no significant accessory muscle action noted. Breath sounds clear to auscultation bilaterally and equal noted. No wheezes rales or rhonchi noted. No significant dullness noted on percussion. CHEST: Palpation of the chest wall shows no significant chest wall tenderness. No other significant abnormalities noted. HEART: [place] [employer], No PSH, 1/6 FUNMILAYO aortic area, 1/6 mccormack systolic murmur mitral area, no rubs, no gallops. ABDOMEN: Soft, no significant tenderness appreciated, normoactive bowel sounds. No guarding, no rebound. No rigidity noted . No masses appreciated. EXTREMITIES: Pedal pulses are 1-2+, no calf tenderness noted. No clubbing or cyanosis. Patient is status post bilateral above-knee amputation and recently had more surgery in the left lower extremity stump. NEUROLOGICAL: Focused neurological exam showed no significant neurologic deficit. Normal speech, no focal weakness appreciated. PSYCH: Normal mood, normal affect. Judgment and insight within normal limits. SKIN: Skin changes related to SLE noted.. MUSCULOSKELETAL EXAM: No significant joint swelling noted. Results Laboratory Results: 09/04/17 15:50 09/04/17 05:20 09/02/17 09/04/17 09/04/17 02:35 05:20 05:20 WBC 3.4 L RBC 2.44 L Hgb 6.4 L Hct 19.4 L MCV 79 L MCH 26.2 L MCHC 33.0 RDW 16.0 H Plt Count 158 Seg Neutrophils % 66.1 Lymphocytes % 23.8 Monocytes % 7.2 Eosinophils % 2.6 Basophils % 0.3 Absolute Neutrophils 2.2 Absolute Lymphocytes 0.8 Absolute Monocytes 0.2 Absolute Eosinophils 0.1 Absolute Basophils 0.0 Sodium 138.7 Potassium 3.8 Chloride 104 Carbon Dioxide 25 Anion Gap 10 BUN 8 Creatinine 0.53 Est GFR ( Amer) > 60 Est GFR (Non-Af Amer) > 60 Glucose 139 H Calcium 8.2 L Blood Type O POSITIVE Antibody Screen NEGATIVE 09/04/17 15:50 WBC 4.4 RBC 3.48 L Hgb 9.9 L D Hct 28.5 L MCV 82 MCH 28.3 MCHC 34.6 RDW 15.9 H Plt Count 161 Seg Neutrophils % 74.7 Lymphocytes % 16.6 Monocytes % 6.0 Eosinophils % 2.4 Basophils % 0.3 Absolute Neutrophils 3.3 Absolute Lymphocytes 0.7 Absolute Monocytes 0.3 Absolute Eosinophils 0.1 Absolute Basophils 0.0 Sodium Potassium Chloride Carbon Dioxide Anion Gap BUN Creatinine Est GFR ( Amer) Est GFR (Non-Af Amer) Glucose Calcium Blood Type Antibody Screen 09/03/17 17:36 Leg - Above Knee Amputation Site Gram Stain - Final 08/31/17 18:45 Leg - Above Knee Amputation Site Gram Stain - Final 08/31/17 18:45 Leg - Above Knee Amputation Site Wound Culture - Final Pseudomonas Aeruginosa No Anaerobic Organisms EKG Comments: Twelve-lead EKG obtained this morning showed sinus rhythm no acute ST-T wave changes noted. Impressions: Femur X-Ray 08/28/17 10:15 IMPRESSION: Relatively intact left mid leg amputation site. Findings as above. Surveillance followup radiographs may prove helpful to exclude developing osteomyelitis. Lower Extremity MRI 08/31/17 12:30 IMPRESSION: 1. Bilateral amputations with minimal reactive bone edema and regional soft tissue edema without drainable abscess. Doubt osteomyelitis, marrow signal changes may simply be related to overlying soft tissue infection and irritation. Surveillance followup radiographs to assess for progressive bone resorption recommended. Progressive bone lysis would suggest osteomyelitis. Chest X-Ray 09/03/17 00:00 IMPRESSION: NO ACUTE RADIOGRAPHIC FINDING IN THE CHEST. RIGHT IJ VENOUS CATHETER TERMINATES WITHIN THE RIGHT ATRIUM. CONSIDER PULLING BACK 4 TO 5 CM. Assessment & Plan - Diagnosis (1) Tachycardia Is this a current diagnosis for this admission?: Yes (2) Abnormal electrocardiogram Is this a current diagnosis for this admission?: Yes (3) Essential hypertension Is this a current diagnosis for this admission?: Yes (4) SLE (systemic lupus erythematosus) Qualifiers: Systemic lupus erythematosus type: unspecified Systemic lupus erythematosus organ involvement: unspecified Qualified Code(s): M32.9 - Systemic lupus erythematosus, unspecified Is this a current diagnosis for this admission?: Yes (5) Preoperative cardiovascular examination Is this a current diagnosis for this admission?: Yes - Notes Notes: Tachycardia: This has improved.. Abnormal EKG: EKG is today and yesterday looked relatively normal. Hypertension: Currently blood pressure well controlled. SLE: Will leave management to stores naval and other specialist. Peripheral vascular disease: Patient may have microvascular disease from connective tissue disorder. Avoid cold exposure. Patient has been advised avoid tobacco use in any form. - Time Time with patient: 15-25 minutes - Patient has done well. Will sign off. Please reconsult if needed. Medications reviewed and adjusted accordingly: Yes
[2017-09-06] MEDS: OXYCODONE-ACETAMINOPHEN 5-325 MG TABLET PO PRN ×4 (02:10→19:45)
[2017-09-06] MEDS: PIPERACILLIN SODIUM/TAZOBACTAM 3.375 GM in NORMAL SALINE 100 ML IV SCH ×4 (02:10→20:22)
[2017-09-06] MEDS: HYDROMORPHONE HCL INJ/PF 2 MG/ML AMPULE IV PRN ×4 (03:36→22:41)
[2017-09-06] MEDS: KETOROLAC TROMETHAMINE INJ/PF 30 MG/1 ML SDV IV SCH ×2 (06:32→15:04)
[2017-09-06] MEDS: FAMOTIDINE 20 MG TABLET PO SCH ×2 (06:32→17:26)
[2017-09-06] MEDS: FERROUS SULFATE 325 MG TABLET PO SCH ×3 (09:34→17:26)
[2017-09-06] MEDS: ASPIRIN 81 MG TABLET, CHEWABLE PO SCH (09:34)
--- NOTE | 2017-09-06 10:08 | PDOC PROGRESS REPORT ---
Subjective Progress Note for:: 09/06/17 Subjective:: Patient was admitted to the surgical service after spending 2-1/2 weeks down in the emergency room. She was recently discharged from an outside facility [place] and came to [place] to see her family. While she was here she started having lower extremity swelling and presented to the emergency room. While she was down there over the last 2 weeks her stumps developed ulcers that began draining purulent fluid. This necessitated admission with debridement. 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 She is been anemic and required blood transfusion. According to my conversation with the patient she has never been scoped from either end. She states that she is always anemic and she does not know why. Has no complaints today. Physical Exam Vital Signs: Temp Pulse Resp BP Pulse Ox 98.0 F 66 16 110/60 100 09/05/17 23:31 09/05/17 23:31 09/05/17 23:31 09/05/17 23:31 09/05/17 23:31 Intake & Output 09/05/17 09/06/17 09/07/17 06:59 06:59 06:59 Intake Total 3909 3021 Output Total 1500 1675 Balance 2409 1346 GENERAL: This is a well-developed chronically ill appearing -[place] female resting in bed in no acute distress. HEART: Regular rate and rhythm. No murmurs, rubs or gallops. LUNGS: Clear to auscultation bilaterally with equal rise and fall of the chest. ABDOMEN: Soft, nontender, nondistended with normoactive bowel sounds EXTREMETIES: No clubbing or cyanosis. The patient has bilateral AKA. Her stumps are appropriately dressed. Her finger is also dressed. NEURO: Awake, alert and oriented 3. Cranial nerves II through XII are grossly intact. Skin: The patient's stumps are currently wrapped in gauze. Results Laboratory Results: 09/05/17 06:00 09/05/17 06:00 09/03/17 17:36 Leg - Above Knee Amputation Site Gram Stain - Final 09/03/17 21:25 Nasophary (Mrsa Only) MRSA Surveillance Culture - Final NO MRSA RECOVERED Impressions: Femur X-Ray 08/28/17 10:15 IMPRESSION: Relatively intact left mid leg amputation site. Findings as above. Surveillance followup radiographs may prove helpful to exclude developing osteomyelitis. Lower Extremity MRI 08/31/17 12:30 IMPRESSION: 1. Bilateral amputations with minimal reactive bone edema and regional soft tissue edema without drainable abscess. Doubt osteomyelitis, marrow signal changes may simply be related to overlying soft tissue infection and irritation. Surveillance followup radiographs to assess for progressive bone resorption recommended. Progressive bone lysis would suggest osteomyelitis. Chest X-Ray 09/03/17 00:00 IMPRESSION: NO ACUTE RADIOGRAPHIC FINDING IN THE CHEST. RIGHT IJ VENOUS CATHETER TERMINATES WITHIN THE RIGHT ATRIUM. CONSIDER PULLING BACK 4 TO 5 CM. Assessment & Plan - Diagnosis (1) Ulcer of right lower extremity Is this a current diagnosis for this admission?: Yes Plan: status post incision and drainage. Surgery managing (2) Alcohol use Plan: Patient's last use was 3 months ago. Recommend continued cessation. (3) Cocaine abuse Plan: The patient states last use was 3 months ago. It should be noted that her UDS was positive for cocaine on August 15. Recommend continued cessation. (4) Tobacco abuse Is this a current diagnosis for this admission?: Yes Plan: Recommend continued cessation. Last use was 3 months ago (6) Essential hypertension Is this a current diagnosis for this admission?: Yes Plan: Blood pressures have been very reasonable. (7) SLE (systemic lupus erythematosus) Qualifiers: Systemic lupus erythematosus type: unspecified Systemic lupus erythematosus organ involvement: unspecified Qualified Code(s): M32.9 - Systemic lupus erythematosus, unspecified Is this a current diagnosis for this admission?: Yes Plan: There are no home medications listed. We will need to verify with pharmacy. The patient is not currently receiving any medications. (8) Anemia Plan: This is most likely combined anemia of chronic disease and iron deficiency. Because she is already been transfused we cannot obtain an iron panel. Recheck H&H today to ensure that her counts are still staying in the nines after transfusion. If so we will sign off. The patient will need an outpatient endoscopy. Guaiac stools. - Time Time Spent with patient: 15-24 minutes - Plan Summary Plan Summary: Sign off. Recall with questions.
[2017-09-06 12:06] LABS: ABSOLUTE EOSINOPHILS # (AUTO) 0.1 10^3/uL (0.0-0.6); ABSOLUTE LYMPHOCYTES (AUTO) 0.5 10^3/uL (0.5-4.7); ABSOLUTE MONOCYTES (AUTO) 0.2 10^3/uL (0.1-1.4); ABSOLUTE NEUT (AUTO) 1.9 10^3/uL (1.7-8.2); BASOPHILS % (AUTO) 0.5 % (0-2); EOSINOPHILS % (AUTO) 4.5 % (0-6); HEMATOCRIT 27.6 % (36.0-47.0); HEMOGLOBIN 9.1 g/dL (12.0-15.5); MEAN CORPUSCULAR HEMOGLOBIN 27.1 pg (27.0-33.4); MEAN CORPUSCULAR HGB CONC 33.1 g/dL (32.0-36.0); MEAN CORPUSCULAR VOLUME 82 fl (80-97); MONOCYTES % (AUTO) 7.2 % (3-13); PLATELET COUNT 160 10^3/uL (150-450); RED BLOOD COUNT 3.37 10^6/uL (3.72-5.28); RED CELL DISTRIBUTION WIDTH 16.8 % (11.5-14.0); SEGMENTED NEUTROPHILS % (AUTO) 68.8 % (42-78); TOTAL CELLS COUNTED % (AUTO) 100 %; WHITE BLOOD COUNT 2.8 10^3/uL (4.0-10.5)
[2017-09-07] MEDS: PIPERACILLIN SODIUM/TAZOBACTAM 3.375 GM in NORMAL SALINE 100 ML IV SCH ×3 (02:58→14:23)
[2017-09-07] MEDS: HYDROMORPHONE HCL INJ/PF 2 MG/ML AMPULE IV PRN ×5 (03:26→20:06)
[2017-09-07] MEDS: FAMOTIDINE 20 MG TABLET PO SCH ×2 (06:08→18:56)
[2017-09-07] MEDS: FERROUS SULFATE 325 MG TABLET PO SCH ×3 (07:55→16:24)
[2017-09-07] MEDS: ASPIRIN 81 MG TABLET, CHEWABLE PO SCH (10:21)
--- NOTE | 2017-09-07 22:08 | PDOC PROGRESS REPORT ---
Subjective Progress Note for:: 09/07/17 Subjective:: Postoperative day 4 status post partial amputation left fourth finger, and stump revision left [id number] amputation. No fresh subjective complaints She has no home to go to She remains on Zosyn for Pseudomonas aeruginosa growing from the left AKA stump. Physical Exam Vital Signs: Temp Pulse Resp BP Pulse Ox 98.5 F 71 16 141/84 H 100 09/07/17 19:17 09/07/17 19:17 09/07/17 19:17 09/07/17 19:17 09/07/17 19:17 Intake & Output 09/06/17 09/07/17 09/08/17 06:59 06:59 06:59 Intake Total 3021 1872 1160 Output Total 1675 2300 600 Balance 1346 -428 560 General appearance: PRESENT: no acute distress Head exam: PRESENT: atraumatic Eye exam: PRESENT: conjunctiva pink Respiratory exam: PRESENT: clear to auscultation rei Cardiovascular exam: PRESENT: RRR, +S1, +S2 GI/Abdominal exam: PRESENT: normal bowel sounds Extremities exam: PRESENT: other - bilateral AKA with a 5.3cm x 4cm x 0cm granulation tissue in the inferior aspect of the stump of the right AKA; the left AKA stump has some stitches with two areas of open wounds in between stitches - generally looking clean at this time. Musculoskeletal exam: PRESENT: other - bilateral AKA Neurological exam: PRESENT: alert, oriented to person, oriented to place, oriented to time, CN II-XII grossly intact Skin exam: PRESENT: rash, other - multiple scars Results Laboratory Results: 09/06/17 11:20 09/05/17 06:00 09/03/17 17:36 Leg - Above Knee Amputation Site Gram Stain - Final 09/03/17 17:36 Leg - Above Knee Amputation Site Wound Culture - Final NO AEROBIC OR ANAEROBIC ORGANISMS RECOVERED Impressions: Femur X-Ray 08/28/17 10:15 IMPRESSION: Relatively intact left mid leg amputation site. Findings as above. Surveillance followup radiographs may prove helpful to exclude developing osteomyelitis. Lower Extremity MRI 08/31/17 12:30 IMPRESSION: 1. Bilateral amputations with minimal reactive bone edema and regional soft tissue edema without drainable abscess. Doubt osteomyelitis, marrow signal changes may simply be related to overlying soft tissue infection and irritation. Surveillance followup radiographs to assess for progressive bone resorption recommended. Progressive bone lysis would suggest osteomyelitis. Chest X-Ray 09/03/17 00:00 IMPRESSION: NO ACUTE RADIOGRAPHIC FINDING IN THE CHEST. RIGHT IJ VENOUS CATHETER TERMINATES WITHIN THE RIGHT ATRIUM. CONSIDER PULLING BACK 4 TO 5 CM. Assessment & Plan - Diagnosis (1) Abscess of left leg Is this a current diagnosis for this admission?: Yes Plan: s/p drainage of abscess and limited revision of left AKA stump Continue wound packing Continue zosyn for pseudomonas (2) gangrene left fourth finger Is this a current diagnosis for this admission?: Yes Plan: Continue to monitor viability of amputation wound - Time Time Spent with patient: 25-34 minutes Critical Time spent with patient: 15-24 minutes Medications reviewed and adjusted accordingly: Yes
--- NOTE | 2017-09-07 22:16 | PDOC PROGRESS REPORT ---
Subjective Progress Note for:: 09/06/17 Subjective:: POD #3 s/p revision of left AKA and partial amputation of left fourth finger She is not presently complaining of pain She grew pseudomonas from the left AKA wound and is on zosyn Physical Exam Vital Signs: Temp Pulse Resp BP Pulse Ox 98.5 F 71 16 141/84 H 100 09/07/17 19:17 09/07/17 19:17 09/07/17 19:17 09/07/17 19:17 09/07/17 19:17 Intake & Output 09/06/17 09/07/17 09/08/17 06:59 06:59 06:59 Intake Total 3021 1872 1160 Output Total 1675 2300 600 Balance 1346 -428 560 General appearance: PRESENT: no acute distress Head exam: PRESENT: atraumatic Eye exam: PRESENT: conjunctival injection Mouth exam: PRESENT: moist, neck supple Respiratory exam: PRESENT: clear to auscultation rei Cardiovascular exam: PRESENT: RRR, +S1, +S2 GI/Abdominal exam: PRESENT: normal bowel sounds Extremities exam: PRESENT: other - bilateral AKA Left AKA with stitches and two open areas packed (each about 2cm wide) Right AKA stump has a raw area with granulation tissue at the base of the stump measuring 5.2cm x 4cm x0cm appears otherwise clean. Left fourth finger is amputated at the DIP joint area with interrupted stitches of nylon at the amputation wound; the skin here appears a bit dark. Neurological exam: PRESENT: alert, oriented to person, oriented to place, oriented to time Results Laboratory Results: 09/06/17 11:20 09/05/17 06:00 09/03/17 17:36 Leg - Above Knee Amputation Site Gram Stain - Final 09/03/17 17:36 Leg - Above Knee Amputation Site Wound Culture - Final NO AEROBIC OR ANAEROBIC ORGANISMS RECOVERED Impressions: Femur X-Ray 08/28/17 10:15 IMPRESSION: Relatively intact left mid leg amputation site. Findings as above. Surveillance followup radiographs may prove helpful to exclude developing osteomyelitis. Lower Extremity MRI 08/31/17 12:30 IMPRESSION: 1. Bilateral amputations with minimal reactive bone edema and regional soft tissue edema without drainable abscess. Doubt osteomyelitis, marrow signal changes may simply be related to overlying soft tissue infection and irritation. Surveillance followup radiographs to assess for progressive bone resorption recommended. Progressive bone lysis would suggest osteomyelitis. Chest X-Ray 09/03/17 00:00 IMPRESSION: NO ACUTE RADIOGRAPHIC FINDING IN THE CHEST. RIGHT IJ VENOUS CATHETER TERMINATES WITHIN THE RIGHT ATRIUM. CONSIDER PULLING BACK 4 TO 5 CM. Assessment & Plan - Diagnosis (1) Abscess of left leg Is this a current diagnosis for this admission?: Yes Plan: The wound packing was removed and the wound inspected - appears clean Continue zosyn for pseudomonas (2) gangrene left fourth finger Is this a current diagnosis for this admission?: Yes Plan: Observe wound closely - Time Time Spent with patient: 35 or more minutes Critical Time spent with patient: 25-34 minutes
[2017-09-08] MEDS: HYDROMORPHONE HCL INJ/PF 2 MG/ML AMPULE IV PRN ×6 (00:17→23:55)
[2017-09-08] MEDS ORDERED: PIPERACILLIN/TAZOBACTAM 3.375 GM VIAL IV PRN (02:39)
[2017-09-08] MEDS ORDERED: PIPERACILLIN/TAZOBACTAM 3.375 GM VIAL IV ONE (03:47)
[2017-09-08] MEDS: PIPERACILLIN SODIUM/TAZOBACTAM 3.375 GM in NORMAL SALINE 100 ML IV SCH ×4 (04:50→22:00)
[2017-09-08] MEDS: FAMOTIDINE 20 MG TABLET PO SCH ×2 (04:50→17:48)
[2017-09-08] MEDS: ASPIRIN 81 MG TABLET, CHEWABLE PO SCH (10:13)
[2017-09-08] MEDS: FERROUS SULFATE 325 MG TABLET PO SCH ×3 (10:13→18:00)
[2017-09-08] MEDS: NORMAL SALINE 1000 ML 1,000 ML IV PRN (10:14)
--- NOTE | 2017-09-08 13:49 | PDOC PROGRESS REPORT ---
Subjective Progress Note for:: 09/08/17 Subjective:: POD #5 s/p revision of left AKA and partial amputation of left fourth finger She has no fresh complaints today No fever Physical Exam Vital Signs: Temp Pulse Resp BP Pulse Ox 98.1 F 67 16 159/85 H 100 09/07/17 23:13 09/07/17 23:13 09/07/17 23:13 09/07/17 23:13 09/07/17 23:13 Intake & Output 09/07/17 09/08/17 09/09/17 06:59 06:59 06:59 Intake Total 1872 1640 Output Total 2300 1300 Balance -428 340 General appearance: PRESENT: no acute distress Head exam: PRESENT: atraumatic Eye exam: PRESENT: conjunctiva pink Respiratory exam: PRESENT: clear to auscultation rei Cardiovascular exam: PRESENT: RRR, +S1, +S2 GI/Abdominal exam: PRESENT: normal bowel sounds, soft. ABSENT: distended, guarding, mass, organolmegaly, rebound, tenderness Extremities exam: PRESENT: other - Bilateral AKA, the left AKA stump revision has 2 areas being packed each about 1cm between stitches on the medial and lateral aspects; the incision looks clean and dry. The right AKA has the raw with clean granulation tissue at its base measuring about 5.3cm x 4cmx 0cm left 4th finger amputation wound looks clean, dry, intact and healing; stitches in place. Results Laboratory Results: 09/06/17 11:20 09/05/17 06:00 09/03/17 17:36 Leg - Above Knee Amputation Site Gram Stain - Final 09/03/17 17:36 Leg - Above Knee Amputation Site Wound Culture - Final NO AEROBIC OR ANAEROBIC ORGANISMS RECOVERED Impressions: Femur X-Ray 08/28/17 10:15 IMPRESSION: Relatively intact left mid leg amputation site. Findings as above. Surveillance followup radiographs may prove helpful to exclude developing osteomyelitis. Lower Extremity MRI 08/31/17 12:30 IMPRESSION: 1. Bilateral amputations with minimal reactive bone edema and regional soft tissue edema without drainable abscess. Doubt osteomyelitis, marrow signal changes may simply be related to overlying soft tissue infection and irritation. Surveillance followup radiographs to assess for progressive bone resorption recommended. Progressive bone lysis would suggest osteomyelitis. Chest X-Ray 09/03/17 00:00 IMPRESSION: NO ACUTE RADIOGRAPHIC FINDING IN THE CHEST. RIGHT IJ VENOUS CATHETER TERMINATES WITHIN THE RIGHT ATRIUM. CONSIDER PULLING BACK 4 TO 5 CM. Assessment & Plan - Diagnosis (1) Abscess of left leg Is this a current diagnosis for this admission?: Yes Plan: The wound packing was removed and the wound inspected - appears clean Continue zosyn for pseudomonas (2) gangrene left fourth finger Is this a current diagnosis for this admission?: Yes Plan: Wound looks good Leave stitches in place till fully healed - Time Time Spent with patient: 25-34 minutes
[2017-09-08] MEDS: MAG HYDROX/AL HYDROX/SIMETH SUSP 30 ML UDCUP PO PRN (18:00)
[2017-09-09] MEDS: PIPERACILLIN SODIUM/TAZOBACTAM 3.375 GM in NORMAL SALINE 100 ML IV SCH ×4 (03:19→23:33)
[2017-09-09] MEDS: HYDROMORPHONE HCL INJ/PF 2 MG/ML AMPULE IV PRN ×4 (05:51→23:26)
[2017-09-09] MEDS: MAG HYDROX/AL HYDROX/SIMETH SUSP 30 ML UDCUP PO PRN (05:57)
[2017-09-09] MEDS: FAMOTIDINE 20 MG TABLET PO SCH ×2 (06:12→18:50)
--- NOTE | 2017-09-09 08:38 | PDOC PROGRESS REPORT ---
Subjective Progress Note for:: 09/09/17 Subjective:: pain minimal no fever Physical Exam Vital Signs: Temp Pulse Resp BP Pulse Ox 97.7 F 69 16 170/88 H 100 09/09/17 00:00 09/09/17 00:00 09/09/17 00:00 09/09/17 00:00 09/09/17 00:00 Intake & Output 09/08/17 09/09/17 09/10/17 06:59 06:59 06:59 Intake Total 1640 4816 Output Total 1300 2500 Balance 340 2316 Weight 42.8 kg Extremities exam: PRESENT: other - Left AKA stump wounds clean DC plan with manager rn case, when ever there is placement available she can be dcd Results Laboratory Results: 09/06/17 11:20 09/05/17 06:00 Impressions: Femur X-Ray 08/28/17 10:15 IMPRESSION: Relatively intact left mid leg amputation site. Findings as above. Surveillance followup radiographs may prove helpful to exclude developing osteomyelitis. Lower Extremity MRI 08/31/17 12:30 IMPRESSION: 1. Bilateral amputations with minimal reactive bone edema and regional soft tissue edema without drainable abscess. Doubt osteomyelitis, marrow signal changes may simply be related to overlying soft tissue infection and irritation. Surveillance followup radiographs to assess for progressive bone resorption recommended. Progressive bone lysis would suggest osteomyelitis. Chest X-Ray 09/03/17 00:00 IMPRESSION: NO ACUTE RADIOGRAPHIC FINDING IN THE CHEST. RIGHT IJ VENOUS CATHETER TERMINATES WITHIN THE RIGHT ATRIUM. CONSIDER PULLING BACK 4 TO 5 CM.
[2017-09-09] MEDS: FERROUS SULFATE 325 MG TABLET PO SCH ×3 (10:41→16:56)
[2017-09-09] MEDS: ASPIRIN 81 MG TABLET, CHEWABLE PO SCH (10:41)
[2017-09-09] MEDS: NORMAL SALINE 1000 ML 1,000 ML IV PRN (16:56)
[2017-09-10] MEDS: HYDROMORPHONE HCL INJ/PF 2 MG/ML AMPULE IV PRN ×5 (03:45→19:41)
[2017-09-10] MEDS: FAMOTIDINE 20 MG TABLET PO SCH ×2 (06:12→17:49)
[2017-09-10] MEDS: PIPERACILLIN SODIUM/TAZOBACTAM 3.375 GM in NORMAL SALINE 100 ML IV SCH ×3 (06:26→17:50)
[2017-09-10] MEDS: FERROUS SULFATE 325 MG TABLET PO SCH ×3 (07:37→17:49)
[2017-09-10] MEDS: ASPIRIN 81 MG TABLET, CHEWABLE PO SCH (09:01)
--- NOTE | 2017-09-10 13:31 | PDOC PROGRESS REPORT ---
Subjective Progress Note for:: 09/10/17 Subjective:: feels comfortable Physical Exam Vital Signs: Temp Pulse Resp BP Pulse Ox 97.4 F 68 16 146/74 H 100 09/10/17 11:58 09/10/17 11:58 09/10/17 11:58 09/10/17 11:58 09/10/17 11:58 Intake & Output 09/09/17 09/10/17 09/11/17 06:59 06:59 06:59 Intake Total 4816 3590 Output Total 2500 3590 Balance 2316 0 Weight 42.8 kg 43.2 kg Extremities exam: PRESENT: other - Left Thigh AKA Stum - wounds clean Results Laboratory Results: 09/06/17 11:20 09/05/17 06:00 Impressions: Femur X-Ray 08/28/17 10:15 IMPRESSION: Relatively intact left mid leg amputation site. Findings as above. Surveillance followup radiographs may prove helpful to exclude developing osteomyelitis. Lower Extremity MRI 08/31/17 12:30 IMPRESSION: 1. Bilateral amputations with minimal reactive bone edema and regional soft tissue edema without drainable abscess. Doubt osteomyelitis, marrow signal changes may simply be related to overlying soft tissue infection and irritation. Surveillance followup radiographs to assess for progressive bone resorption recommended. Progressive bone lysis would suggest osteomyelitis. Chest X-Ray 09/03/17 00:00 IMPRESSION: NO ACUTE RADIOGRAPHIC FINDING IN THE CHEST. RIGHT IJ VENOUS CATHETER TERMINATES WITHIN THE RIGHT ATRIUM. CONSIDER PULLING BACK 4 TO 5 CM. Assessment & Plan - Plan Summary Plan Summary: Awaiting placement , as soon as awailable - can be discharged .
[2017-09-10] MEDS: NORMAL SALINE 1000 ML 1,000 ML IV PRN (22:53)
[2017-09-10] MEDS: OXYCODONE-ACETAMINOPHEN 5-325 MG TABLET PO PRN (23:36)
[2017-09-11] MEDS: PIPERACILLIN SODIUM/TAZOBACTAM 3.375 GM in NORMAL SALINE 100 ML IV SCH ×5 (00:11→23:38)
[2017-09-11] MEDS: OXYCODONE-ACETAMINOPHEN 5-325 MG TABLET PO PRN ×5 (04:05→21:31)
[2017-09-11] MEDS: FAMOTIDINE 20 MG TABLET PO SCH ×2 (06:19→17:21)
[2017-09-11] MEDS: ASPIRIN 81 MG TABLET, CHEWABLE PO SCH (09:10)
[2017-09-11] MEDS: FERROUS SULFATE 325 MG TABLET PO SCH ×3 (09:10→17:21)
[2017-09-11] MEDS: NORMAL SALINE 1000 ML 1,000 ML IV PRN (13:16)
--- NOTE | 2017-09-11 15:27 | PDOC PROGRESS REPORT ---
Subjective Progress Note for:: 09/11/17 Physical Exam Vital Signs: Temp Pulse Resp BP Pulse Ox 98.2 F 66 20 112/65 100 09/11/17 12:00 09/11/17 12:00 09/11/17 12:00 09/11/17 12:00 09/11/17 12:00 Intake & Output 09/10/17 09/11/17 09/12/17 06:59 06:59 06:59 Intake Total 3590 2620 Output Total 3590 1550 Balance 0 1070 Weight 43.2 kg Extremities exam: PRESENT: other - Left AKA stump wounds -c lean Results Laboratory Results: 09/06/17 11:20 09/05/17 06:00 Impressions: Femur X-Ray 08/28/17 10:15 IMPRESSION: Relatively intact left mid leg amputation site. Findings as above. Surveillance followup radiographs may prove helpful to exclude developing osteomyelitis. Lower Extremity MRI 08/31/17 12:30 IMPRESSION: 1. Bilateral amputations with minimal reactive bone edema and regional soft tissue edema without drainable abscess. Doubt osteomyelitis, marrow signal changes may simply be related to overlying soft tissue infection and irritation. Surveillance followup radiographs to assess for progressive bone resorption recommended. Progressive bone lysis would suggest osteomyelitis. Chest X-Ray 09/03/17 00:00 IMPRESSION: NO ACUTE RADIOGRAPHIC FINDING IN THE CHEST. RIGHT IJ VENOUS CATHETER TERMINATES WITHIN THE RIGHT ATRIUM. CONSIDER PULLING BACK 4 TO 5 CM. Assessment & Plan - Plan Summary Plan Summary: Awaiting placement for DC
[2017-09-12] MEDS: OXYCODONE-ACETAMINOPHEN 5-325 MG TABLET PO PRN ×6 (01:35→21:26)
[2017-09-12] MEDS: DIPHENHYDRAMINE HCL 25 MG CAPSULE PO PRN (01:37)
[2017-09-12] MEDS: NORMAL SALINE 1000 ML 1,000 ML IV PRN ×2 (04:36→13:46)
[2017-09-12] MEDS: FAMOTIDINE 20 MG TABLET PO SCH ×2 (05:41→17:50)
[2017-09-12] MEDS: PIPERACILLIN SODIUM/TAZOBACTAM 3.375 GM in NORMAL SALINE 100 ML IV SCH ×3 (05:49→17:50)
[2017-09-12] MEDS: FERROUS SULFATE 325 MG TABLET PO SCH ×3 (09:41→17:49)
[2017-09-12] MEDS: ASPIRIN 81 MG TABLET, CHEWABLE PO SCH (09:42)
--- NOTE | 2017-09-12 12:11 | PDOC PROGRESS REPORT ---
Subjective Progress Note for:: 09/12/17 Subjective:: no changes Physical Exam Vital Signs: Temp Pulse Resp BP Pulse Ox 97.9 F 60 16 148/70 H 100 09/12/17 07:24 09/12/17 07:24 09/12/17 07:24 09/12/17 07:24 09/12/17 07:24 Intake & Output 09/11/17 09/12/17 09/13/17 06:59 06:59 06:59 Intake Total 2620 3153 Output Total 1550 3200 Balance 1070 -47 Results Laboratory Results: 09/06/17 11:20 09/05/17 06:00 Impressions: Femur X-Ray 08/28/17 10:15 IMPRESSION: Relatively intact left mid leg amputation site. Findings as above. Surveillance followup radiographs may prove helpful to exclude developing osteomyelitis. Lower Extremity MRI 08/31/17 12:30 IMPRESSION: 1. Bilateral amputations with minimal reactive bone edema and regional soft tissue edema without drainable abscess. Doubt osteomyelitis, marrow signal changes may simply be related to overlying soft tissue infection and irritation. Surveillance followup radiographs to assess for progressive bone resorption recommended. Progressive bone lysis would suggest osteomyelitis. Chest X-Ray 09/03/17 00:00 IMPRESSION: NO ACUTE RADIOGRAPHIC FINDING IN THE CHEST. RIGHT IJ VENOUS CATHETER TERMINATES WITHIN THE RIGHT ATRIUM. CONSIDER PULLING BACK 4 TO 5 CM. Assessment & Plan - Plan Summary Plan Summary: Awaiting placement
[2017-09-13] MEDS: PIPERACILLIN SODIUM/TAZOBACTAM 3.375 GM in NORMAL SALINE 100 ML IV SCH ×4 (00:07→18:04)
[2017-09-13] MEDS: OXYCODONE-ACETAMINOPHEN 5-325 MG TABLET PO PRN ×5 (01:41→20:01)
[2017-09-13] MEDS: FAMOTIDINE 20 MG TABLET PO SCH ×2 (05:17→18:04)
[2017-09-13] MEDS: FERROUS SULFATE 325 MG TABLET PO SCH ×3 (07:53→18:04)
[2017-09-13] MEDS: ASPIRIN 81 MG TABLET, CHEWABLE PO SCH (09:05)
[2017-09-13] MEDS: DIPHENHYDRAMINE HCL 25 MG CAPSULE PO PRN ×2 (12:10→18:04)
[2017-09-13] MEDS: NORMAL SALINE 1000 ML 1,000 ML IV PRN (12:13)
--- NOTE | 2017-09-13 13:17 | PDOC PROGRESS REPORT ---
Subjective Progress Note for:: 09/13/17 Subjective:: No complaints Physical Exam Vital Signs: Temp Pulse Resp BP Pulse Ox 98.7 F 75 18 151/85 H 100 09/13/17 11:05 09/13/17 11:05 09/13/17 11:05 09/13/17 11:05 09/13/17 11:05 Intake & Output 09/12/17 09/13/17 09/14/17 06:59 06:59 06:59 Intake Total 3153 3409 Output Total 3200 1350 Balance -47 2058 General appearance: PRESENT: no acute distress Musculoskeletal exam: PRESENT: other - Both AKA stump dressing is removed; the right open wound is granulating nicely about the size of a nickel. The left side sutures in place, and packing from medial open wound removed.; Will leave packing out Results Laboratory Results: 09/06/17 11:20 09/05/17 06:00 Impressions: Femur X-Ray 08/28/17 10:15 IMPRESSION: Relatively intact left mid leg amputation site. Findings as above. Surveillance followup radiographs may prove helpful to exclude developing osteomyelitis. Lower Extremity MRI 08/31/17 12:30 IMPRESSION: 1. Bilateral amputations with minimal reactive bone edema and regional soft tissue edema without drainable abscess. Doubt osteomyelitis, marrow signal changes may simply be related to overlying soft tissue infection and irritation. Surveillance followup radiographs to assess for progressive bone resorption recommended. Progressive bone lysis would suggest osteomyelitis. Chest X-Ray 09/03/17 00:00 IMPRESSION: NO ACUTE RADIOGRAPHIC FINDING IN THE CHEST. RIGHT IJ VENOUS CATHETER TERMINATES WITHIN THE RIGHT ATRIUM. CONSIDER PULLING BACK 4 TO 5 CM. Assessment & Plan - Diagnosis (1) Abscess of left leg Is this a current diagnosis for this admission?: Yes (2) Effusion, left knee Is this a current diagnosis for this admission?: Yes Plan: Now 1 week plus status post left [id number] amputation revision, with wound healing satisfactorily, lorraine in; packing discontinued Recommendations 1. We will review patient's antimicrobial arrangement and consider endpoints 2. We will communicate with medical social consultant regarding discharge plan.
[2017-09-13] MEDS ORDERED: DIPHENHYDRAMINE HCL 50 MG/ML VIAL IV ONE (20:30)
[2017-09-13] MEDS ORDERED: OXYCODONE-ACETAMINOPHEN 5-325 MG TABLET PO ONE (23:30)
[2017-09-14] MEDS: OXYCODONE-ACETAMINOPHEN 5-325 MG TABLET PO PRN ×5 (00:19→21:58)
[2017-09-14] MEDS: FAMOTIDINE 20 MG TABLET PO SCH ×2 (05:28→17:08)
[2017-09-14] MEDS: ASPIRIN 81 MG TABLET, CHEWABLE PO SCH (10:30)
[2017-09-14] MEDS: FERROUS SULFATE 325 MG TABLET PO SCH ×3 (10:31→17:08)
[2017-09-14] MEDS: DIPHENHYDRAMINE HCL 25 MG CAPSULE PO PRN (13:21)
[2017-09-14] MEDS: NORMAL SALINE 1000 ML 1,000 ML IV PRN (18:24)
--- NOTE | 2017-09-14 20:17 | PDOC PROGRESS REPORT ---
Subjective Progress Note for:: 09/14/17 Subjective:: Pains along the left fourth finger amputation site as well as the left AKA stump revision. Reason For Visit: WOUND INFECTION Physical Exam Vital Signs: Temp Pulse Resp BP Pulse Ox 98.6 F 65 18 164/88 H 99 09/14/17 15:28 09/14/17 15:28 09/14/17 15:28 09/14/17 15:28 09/14/17 15:28 Intake & Output 09/13/17 09/14/17 09/15/17 06:59 06:59 06:59 Intake Total 3409 2384 1493 Output Total 1350 2790 1060 Balance 2059 -406 433 Exam: The left finger dressing is intact. The left AKA stump is clean and dry and appears to be healing quite well. The wound on the right AKA appears to be getting smaller. Results Laboratory Results: 09/06/17 11:20 09/05/17 06:00 Impressions: Femur X-Ray 08/28/17 10:15 IMPRESSION: Relatively intact left mid leg amputation site. Findings as above. Surveillance followup radiographs may prove helpful to exclude developing osteomyelitis. Lower Extremity MRI 08/31/17 12:30 IMPRESSION: 1. Bilateral amputations with minimal reactive bone edema and regional soft tissue edema without drainable abscess. Doubt osteomyelitis, marrow signal changes may simply be related to overlying soft tissue infection and irritation. Surveillance followup radiographs to assess for progressive bone resorption recommended. Progressive bone lysis would suggest osteomyelitis. Chest X-Ray 09/03/17 00:00 IMPRESSION: NO ACUTE RADIOGRAPHIC FINDING IN THE CHEST. RIGHT IJ VENOUS CATHETER TERMINATES WITHIN THE RIGHT ATRIUM. CONSIDER PULLING BACK 4 TO 5 CM. Assessment & Plan - Time Time Spent with patient: 15-24 minutes - Plan Summary Plan Summary: #1 try to gradually wean the patient from pain medication. She is aware of this. 2. Were awaiting placement for her through social service.
[2017-09-15] MEDS: OXYCODONE-ACETAMINOPHEN 5-325 MG TABLET PO PRN ×4 (01:33→20:50)
[2017-09-15] MEDS: FAMOTIDINE 20 MG TABLET PO SCH ×2 (06:05→17:42)
[2017-09-15] MEDS: FERROUS SULFATE 325 MG TABLET PO SCH ×3 (08:42→16:20)
[2017-09-15] MEDS: NORMAL SALINE 1000 ML 1,000 ML IV PRN ×2 (08:43→22:08)
[2017-09-15] MEDS: ASPIRIN 81 MG TABLET, CHEWABLE PO SCH (11:25)
[2017-09-15] MEDS ORDERED: DIPHENHYDRAMINE HCL 50 MG/ML VIAL IV PRN (15:06)
[2017-09-15] MEDS ORDERED: METHYLPREDNISOLONE INJ 125 MG/2 ML SDV IV ONE (15:07)
[2017-09-15] MEDS ORDERED: DIPHENHYDRAMINE HCL 2% CREAM 30 GM TP PRN (15:08)
[2017-09-15 15:41] LABS: ABSOLUTE EOSINOPHILS # (AUTO) 0.2 10^3/uL (0.0-0.6); ABSOLUTE LYMPHOCYTES (AUTO) 1.2 10^3/uL (0.5-4.7); ABSOLUTE MONOCYTES (AUTO) 0.5 10^3/uL (0.1-1.4); BASOPHILS % (AUTO) 0.9 % (0-2); EOSINOPHILS % (AUTO) 4.8 % (0-6); HEMATOCRIT 28.9 % (36.0-47.0); LYMPHOCYTES % (AUTO) 30.1 % (13-45); MEAN CORPUSCULAR HEMOGLOBIN 27.9 pg (27.0-33.4); MEAN CORPUSCULAR HGB CONC 34.6 g/dL (32.0-36.0); MEAN CORPUSCULAR VOLUME 81 fl (80-97); MONOCYTES % (AUTO) 13.5 % (3-13); PLATELET COUNT 237 10^3/uL (150-450); RED BLOOD COUNT 3.58 10^6/uL (3.72-5.28); RED CELL DISTRIBUTION WIDTH 16.9 % (11.5-14.0); SEGMENTED NEUTROPHILS % (AUTO) 50.7 % (42-78); TOTAL CELLS COUNTED % (AUTO) 100 %; WHITE BLOOD COUNT 3.9 10^3/uL (4.0-10.5)
[2017-09-15 16:01] LABS: ALANINE AMINOTRANSFERASE 24 U/L (9-52); ALBUMIN 4.1 g/dL (3.5-5.0); ALKALINE PHOSPHATASE 63 U/L (38-126); ASPARTATE AMINO TRANSFERASE 25 U/L (14-36); BILIRUBIN,DIRECT 0.3 mg/dL (0.0-0.4); BILIRUBIN,TOTAL 0.3 mg/dL (0.2-1.3); TOTAL PROTEIN 8.7 g/dL (6.3-8.2)
[2017-09-15 16:02] LABS: ANION GAP 13 (5-19); BLOOD UREA NITROGEN 11 mg/dL (7-20); CARBON DIOXIDE 23 mmol/L (22-30); CHLORIDE 106 mmol/L (98-107); GLUCOSE 95 mg/dL (75-110); MAGNESIUM 1.3 mg/dL (1.6-2.3); POTASSIUM 3.7 mmol/L (3.6-5.0)
[2017-09-15 16:19] LABS: ERYTHROCYTE SEDIMENTATION RATE 89 mm/hr (0-20)
--- NOTE | 2017-09-15 16:57 | PDOC PROGRESS REPORT ---
Subjective Progress Note for:: 09/15/17 Subjective:: Patient was admitted to the surgical service after spending 2-1/2 weeks down in the emergency room. She was recently discharged from an outside facility [facility] and came to [place] to see her family. While she was here she started having lower extremity swelling and presented to the emergency room. While she was down there over the last 2 weeks her stumps developed ulcers that began draining purulent fluid. This necessitated admission with debridement. 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 She is been anemic and required blood transfusion. The patient was stable and signed off of by this service on September 06. This morning I received a phone call from the nurse asking the medicine service to reconsult secondary to rash. According to the nurse the patient developed a rash on Wednesday that has gotten progressively worse and involves the palms of her hands as well as her mucous membranes. In my conversation with the patient, she tells me that the rash is actually been present since last week. She states that it started on the left arm and then spread everywhere. 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 She states that she believes it was the last antibiotic she was on that because the issue. She was last on Zosyn. She states that the medication got stopped 2 days ago. The patient states that the rash started off a small flesh-colored bumps and then progressed all over. She says that it is very itchy and that she has been scratching which is why some areas have scabs over them. Reason For Visit: WOUND INFECTION Physical Exam Vital Signs: Temp Pulse Resp BP Pulse Ox 97.8 F 72 18 120/68 100 09/15/17 12:00 09/15/17 12:00 09/15/17 12:00 09/15/17 12:00 09/15/17 12:00 Intake & Output 09/14/17 09/15/17 09/16/17 06:59 06:59 06:59 Intake Total 7754 3118 Output Total 7220 2910 Balance -406 208 GENERAL: This is a well-developed chronically ill appearing -[place] female sitting on the side of her bed. HEART: Regular rate and rhythm. No murmurs, rubs or gallops. LUNGS: Clear to auscultation bilaterally with equal rise and fall of the chest. ABDOMEN: Soft, nontender, nondistended with normoactive bowel sounds EXTREMETIES: No clubbing or cyanosis. The patient has bilateral AKA. Her stumps are appropriately dressed. Her finger has stitches. NEURO: Awake, alert and oriented 3. Cranial nerves II through XII are grossly intact. Skin: The patient's stumps are currently wrapped in gauze. The patient is covered with a petechial-like rash. The petechial rash becomes confluent on the palms. It is nonblanching. Individual petechiae across her body appear to have scabs over top some areas. In these areas there is a brawny texture to the skin. There is no obvious bullous formation or desquamation. The skin does not desquamate with gentle or aggressive palpation. Mucous membranes of the mouth are involved. Sores are evident on the patient's lip. The patient's face is swollen. Results Laboratory Results: 09/06/17 11:20 09/05/17 06:00 Impressions: Femur X-Ray 08/28/17 10:15 IMPRESSION: Relatively intact left mid leg amputation site. Findings as above. Surveillance followup radiographs may prove helpful to exclude developing osteomyelitis. Lower Extremity MRI 08/31/17 12:30 IMPRESSION: 1. Bilateral amputations with minimal reactive bone edema and regional soft tissue edema without drainable abscess. Doubt osteomyelitis, marrow signal changes may simply be related to overlying soft tissue infection and irritation. Surveillance followup radiographs to assess for progressive bone resorption recommended. Progressive bone lysis would suggest osteomyelitis. Chest X-Ray 09/03/17 00:00 IMPRESSION: NO ACUTE RADIOGRAPHIC FINDING IN THE CHEST. RIGHT IJ VENOUS CATHETER TERMINATES WITHIN THE RIGHT ATRIUM. CONSIDER PULLING BACK 4 TO 5 CM. Assessment & Plan - Diagnosis (1) Allergic reaction caused by a drug Qualifiers: Encounter type: initial encounter Qualified Code(s): T78.40XA - Allergy, unspecified, initial encounter Plan: The patient seems to have what is likely a drug reaction. At this point is difficult for me to say that this is truly Starkey-Ruddy syndrome. Patient does have a history of this however. Only her back is spared from the rash at this point. The patient connects the use of Zosyn with initiation of the rash. This point I recommend starting Solu-Medrol. If this is truly Starkey- Ruddy this likely will not help. If her skin begins to desquamate she should be treated like a burn victim and sent to the nearest burn unit. I will try to see if a punch biopsy can be obtained. We will give topical and IV Benadryl for her pruritus. I will also check ESR and CRP. Check blood cultures. Check liver panel and basic labs. The patient should be transferred to a higher center of learning if she does not improve by tomorrow. As discussed with Dr. Weller's who is in agreement. (2) Ulcer of right lower extremity Is this a current diagnosis for this admission?: Yes Plan: status post incision and drainage. Surgery managing (3) Alcohol use Plan: Patient's last use was 3 months ago. Recommend continued cessation. (4) Cocaine abuse Plan: The patient states last use was 3 months ago. It should be noted that her UDS was positive for cocaine on August 15. Recommend continued cessation. (5) Tobacco abuse Is this a current diagnosis for this admission?: Yes Plan: Recommend continued cessation. Last use was 3 months ago (7) Essential hypertension Is this a current diagnosis for this admission?: Yes Plan: Blood pressures have been very reasonable. (8) SLE (systemic lupus erythematosus) Qualifiers: Systemic lupus erythematosus type: unspecified Systemic lupus erythematosus organ involvement: unspecified Qualified Code(s): M32.9 - Systemic lupus erythematosus, unspecified Is this a current diagnosis for this admission?: Yes Plan: There are no home medications listed. We will need to verify with pharmacy. The patient is not currently receiving any medications. (9) Anemia Plan: This is most likely combined anemia of chronic disease and iron deficiency. Currently stable
[2017-09-15] MEDS: DIPHENHYDRAMINE HCL 25 MG CAPSULE PO PRN (17:42)
--- NOTE | 2017-09-15 20:59 | PDOC PROGRESS REPORT ---
Subjective Progress Note for:: 09/15/17 Subjective:: rash over face,ext and frontal body. 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 The left AKA stump appears to be healing fairly well. The left fourth fingertip amputation has dusky discoloration. Stitches are still in place. There is minimal pains noted by the patient. The patient has some mild discomfort along her rashes. Results Laboratory Results: 09/15/17 15:30 09/15/17 15:30 09/15/17 09/15/17 09/15/17 15:30 15:30 15:30 WBC 3.9 L RBC 3.58 L Hgb 10.0 L Hct 28.9 L MCV 81 MCH 27.9 MCHC 34.6 RDW 16.9 H Plt Count 237 Seg Neutrophils % 50.7 Lymphocytes % 30.1 Monocytes % 13.5 H Eosinophils % 4.8 Basophils % 0.9 Absolute Neutrophils 2.0 Absolute Lymphocytes 1.2 Absolute Monocytes 0.5 Absolute Eosinophils 0.2 Absolute Basophils 0.0 Sodium 142.0 Potassium 3.7 Chloride 106 Carbon Dioxide 23 Anion Gap 13 BUN 11 Creatinine 0.75 Est GFR ( Amer) > 60 Est GFR (Non-Af Amer) > 60 Glucose 95 Calcium 9.0 Magnesium 1.3 L Total Bilirubin 0.3 AST 25 ALT 24 Alkaline Phosphatase 63 C-Reactive Protein 14.0 H Total Protein 8.7 H Albumin 4.1 Impressions: Femur X-Ray 08/28/17 10:15 IMPRESSION: Relatively intact left mid leg amputation site. Findings as above. Surveillance followup radiographs may prove helpful to exclude developing osteomyelitis. Lower Extremity MRI 08/31/17 12:30 IMPRESSION: 1. Bilateral amputations with minimal reactive bone edema and regional soft tissue edema without drainable abscess. Doubt osteomyelitis, marrow signal changes may simply be related to overlying soft tissue infection and irritation. Surveillance followup radiographs to assess for progressive bone resorption recommended. Progressive bone lysis would suggest osteomyelitis. Chest X-Ray 09/03/17 00:00 IMPRESSION: NO ACUTE RADIOGRAPHIC FINDING IN THE CHEST. RIGHT IJ VENOUS CATHETER TERMINATES WITHIN THE RIGHT ATRIUM. CONSIDER PULLING BACK 4 TO 5 CM. Assessment & Plan - Time Time Spent with patient: 15-24 minutes - Plan Summary Plan Summary: Patient was evaluated by medicine. He patient started on steroids. If the rash does not improve in the next 24 hours I agree with hospitalist that patient may need to be transferred to a tertiary facility for more care.
[2017-09-16] MEDS: FAMOTIDINE 20 MG TABLET PO SCH ×2 (05:58→17:15)
[2017-09-16] MEDS ORDERED: METHYLPREDNISOLONE INJ 40 MG/1 ML SDV IV SCH (06:00)
[2017-09-16] MEDS: FERROUS SULFATE 325 MG TABLET PO SCH ×3 (09:04→17:16)
[2017-09-16] MEDS: OXYCODONE-ACETAMINOPHEN 5-325 MG TABLET PO PRN ×3 (09:04→23:28)
[2017-09-16] MEDS: ASPIRIN 81 MG TABLET, CHEWABLE PO SCH (09:05)
[2017-09-16] MEDS: NORMAL SALINE 1000 ML 1,000 ML IV PRN (12:06)
--- NOTE | 2017-09-16 12:12 | PDOC PROGRESS REPORT ---
Subjective Progress Note for:: 09/16/17 Subjective:: Following summary copied from Dr. Figueroa: "Patient was admitted to the surgical service after spending 2-1/2 weeks down in the emergency room. She was recently discharged from an outside facility [place] and came to [place] to see her family. While she was here she started having lower extremity swelling and presented to the emergency room. While she was down there over the last 2 weeks her stumps developed ulcers that began draining purulent fluid. This necessitated admission with debridement. 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 She is been anemic and required blood transfusion. The patient was stable and signed off of by this service on September 06. This morning I received a phone call from the nurse asking the medicine service to reconsult secondary to rash. According to the nurse the patient developed a rash on Wednesday that has gotten progressively worse and involves the palms of her hands as well as her mucous membranes. In my conversation with the patient, she tells me that the rash is actually been present since last week. She states that it started on the left arm and then spread everywhere. 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 She states that she believes it was the last antibiotic she was on that because the issue. She was last on Zosyn. She states that the medication got stopped 2 days ago. The patient states that the rash started off a small flesh-colored bumps and then progressed all over. She says that it is very itchy and that she has been scratching which is why some areas have scabs over them." She denies blisters or lesions in her mouth, eyes, or other mucosal surfaces including vagina. She denies chest pain, dysuria, vaginal discharge, difficulty swallowing, fevers, chills. She feels like the rash is starting to dry up with treatment. Overall she feels better today than she did yesterday. She denies melena, hematochezia, nausea vomiting or diarrhea. ROS: All systems reviewed, see above, remaining systems negative. Reason For Visit: WOUND INFECTION Physical Exam Vital Signs: Temp Pulse Resp BP Pulse Ox 98.4 F 68 18 182/93 H 99 09/16/17 08:00 09/16/17 08:00 09/16/17 08:00 09/16/17 08:00 09/16/17 08:00 Intake & Output 09/15/17 09/16/17 09/17/17 06:59 06:59 06:59 Intake Total 3118 3415 Output Total 2910 3150 Balance 208 265 General: She is alert and oriented to person place and time, in no distress. Psych: Mood and affect are appropriate. Chest: Clear to auscultation bilaterally with no respiratory distress or accessory muscle use. Cardiac: is regular rate and rhythm without murmur rub or gallop. Abdomen: Soft, nontender, nondistended with good bowel sounds throughout no tenderness to palpation. Musculoskeletal: Muscle tone is normal. She moves all 4 extremities follows commands. Skin: The patient's stumps are currently wrapped in gauze, the right has a shallow dime sized ulcer with clean base, granulation tissue and a scant amount of mucus overlying; the left stump sutures are in place and are clean dry and intact. Neither stump has any erythema, edema and there is no tenderness. The patient is covered with a petechial-like rash. The petechial rash becomes confluent on the palms. It is nonblanching. Individual petechiae across her body appear to have scabs over top some areas. In these areas there is a brawny texture to the skin. There is no obvious bullous formation or desquamation. The skin does not desquamate with gentle or aggressive palpation. Edges Mucous membranes of the mouth are involved but only on gris borders and spares buccal mucosa and tongue; tonsils are not enlarged and no erythema or edema. Sclera and conjunctiva are free of bullous lesions, injection and appear moist. Results Laboratory Results: 09/15/17 15:30 09/15/17 15:30 09/15/17 09/15/17 09/15/17 15:30 15:30 15:30 WBC 3.9 L RBC 3.58 L Hgb 10.0 L Hct 28.9 L MCV 81 MCH 27.9 MCHC 34.6 RDW 16.9 H Plt Count 237 Seg Neutrophils % 50.7 Lymphocytes % 30.1 Monocytes % 13.5 H Eosinophils % 4.8 Basophils % 0.9 Absolute Neutrophils 2.0 Absolute Lymphocytes 1.2 Absolute Monocytes 0.5 Absolute Eosinophils 0.2 Absolute Basophils 0.0 Sodium 142.0 Potassium 3.7 Chloride 106 Carbon Dioxide 23 Anion Gap 13 BUN 11 Creatinine 0.75 Est GFR ( Amer) > 60 Est GFR (Non-Af Amer) > 60 Glucose 95 Calcium 9.0 Magnesium 1.3 L Total Bilirubin 0.3 AST 25 ALT 24 Alkaline Phosphatase 63 C-Reactive Protein 14.0 H Total Protein 8.7 H Albumin 4.1 Assessment & Plan - Diagnosis (1) Allergic reaction caused by a drug Qualifiers: Encounter type: initial encounter Qualified Code(s): T78.40XA - Allergy, unspecified, initial encounter Is this a current diagnosis for this admission?: Yes Plan: I agree this most likely is a reaction to Zosyn particularly in light of the fact that she has had a similar reaction in the past. However this does not appear to be progressing to a lorenza Starkey Johnsons syndrome as of today mucosal surfaces seem to be spared. Furthermore the rash is drying, there are no bullous lesions evident. Continue to trend CRP. It would appear she is turned a corner and will likely continue to improve. Recommend a rapid steroid taper. (2) Ulcer of right lower extremity Is this a current diagnosis for this admission?: Yes Plan: Continue topical care. (3) Tobacco abuse Is this a current diagnosis for this admission?: Yes (4) SLE (systemic lupus erythematosus) Qualifiers: Systemic lupus erythematosus type: unspecified Systemic lupus erythematosus organ involvement: unspecified Qualified Code(s): M32.9 - Systemic lupus erythematosus, unspecified Is this a current diagnosis for this admission?: Yes Plan: There is a malar distribution across the cheeks and bridge of her nose and though this does not have the typical appearance of an acute lupus reaction could be playing a role and might explain why she responded so nicely to the systemic steroids. - Time Time Spent with patient: 25-34 minutes Medications reviewed and adjusted accordingly: Yes - Plan Summary Plan Summary: Case discussed with surgeon Dr. Weller.
[2017-09-16] MEDS ORDERED: PREDNISONE 20 MG TABLET PO ONE (17:15)
[2017-09-16] MEDS: DIPHENHYDRAMINE HCL 25 MG CAPSULE PO PRN (17:16)
[2017-09-17] MEDS: FAMOTIDINE 20 MG TABLET PO SCH ×2 (06:05→18:06)
[2017-09-17 06:56] LABS: HEMATOCRIT 29.9 % (36.0-47.0); HEMOGLOBIN 9.9 g/dL (12.0-15.5); MEAN CORPUSCULAR HEMOGLOBIN 26.9 pg (27.0-33.4); MEAN CORPUSCULAR HGB CONC 33.2 g/dL (32.0-36.0); MEAN CORPUSCULAR VOLUME 81 fl (80-97); PLATELET COUNT 243 10^3/uL (150-450); RED BLOOD COUNT 3.69 10^6/uL (3.72-5.28); RED CELL DISTRIBUTION WIDTH 16.8 % (11.5-14.0)
[2017-09-17 07:01] LABS: ABSOLUTE LYMPHOCYTES# (MANUAL) 0.9 10^3/uL (0.5-4.7); ABSOLUTE MONOCYTES # (MANUAL) 0.8 10^3/uL (0.1-1.4); ABSOLUTE NEUTROPHILS# (MANUAL) 7.3 10^3/uL (1.7-8.2); BAND NEUTROPHILS % (MANUAL) 3 % (3-5); BASOPHILS % (MANUAL) 0 % (0-2); EOSINOPHILS % (MANUAL) 0 % (0-6); LYMPHOCYTES % (MANUAL) 10 % (13-45); MONOCYTES % (MANUAL) 9 % (3-13); SEGMENTED NEUTROPHILS % (MAN) 78 % (42-78); TOTAL CELLS COUNTED 100
[2017-09-17 07:08] LABS: ANISOCYTOSIS 1+; POIKILOCYTOSIS 1+; TARGET CELLS 1+; TEAR DROP CELLS 1+; TOXIC GRANULATION 1+; TOXIC VACUOLATION PRESENT
[2017-09-17 07:09] LABS: PLATELET COMMENT ADEQUATE
--- NOTE | 2017-09-17 09:42 | RADIOLOGY REPORT (SQ) ---
EXAM DESCRIPTION: PICC INSERTION; U/S GUIDE FOR VASCULAR ACCESS; FLUORO/CV PLACEMENT COMPLETED DATE/TIME: 09/17/2017 9:06 am REASON FOR STUDY: medication; IV ACCESS M79.604 PAIN IN RIGHT LEG M79.651 PAIN IN RIGHT THIGH COMPARISON: None. FLUOROSCOPY TIME: 29 seconds. 1 images saved to PACS. TECHNIQUE: Fluoroscopic and ultrasound guided PICC placement. LIMITATIONS: None. PROCEDURE: After written consent and assessment were obtained, the patient was brought into the fluo roscopy room and place supine on the table. Ultrasound was used on the patient's right arm for PICC access. The right arm was prepped and draped in a sterile fashion along with the ultrasound probe. Th e entry site was anesthetized with 1% lidocaine. A 21 gauge 7 cm needle was advanced through the skin and into the basilic vein under live ultrasound guidance. An ultrasound image was saved to PACS con firming access site. A .018 guide wire was then inserted through the needle and into the venous syst em. The needle was the removed and an 11 blade scalpel was used to make a 1cm skin incision. A 5 fr peel-away sheath was advanced over the wire and into the venous system. A measurement was then made u sing the existing wire and live fluoroscopic guidance. The wire was then removed and the trimmed. The PICC was advanced through the peel-away sheath and into the venous system. The peel-away sheath was removed and the catheter was adhered to the patients arm with a stat lock. The catheter was then aspi rated and flushed and a sterile bandage was placed over the access site. A fluoroscopic spot image w as saved to PACS confirming the catheter tip within the superior vena cava. IMPRESSION: SUCCESSFUL PLACEMENT OF A 5 FR DUAL LUMEN 31 CM PICC IN THE RIGHT BASILIC VEIN. COMMENT: Patient medication list reviewed: Yes- Quality ID# 130:Eligible professional attests to doc umenting in the medical record they obtained, updated, or reviewed the patient's current medications. . Quality ID 145: Final reports for procedures using fluoroscopy that document radiation exposure nicolle dagmar, or exposure time and number of fluorographic images (if radiation exposure indices are not avail able) Quality ID #76: The patient was prepped and draped using maximum sterile barrier technique including cap, mask, sterile gown, sterile gloves, a large sterile sheet, hand hygiene, and 2% Chlorhexidine fo r cutaneous antisepsis. When ultrasound is used, sterile ultrasound techniques are followed requiring sterile gel and sterile probes. TECHNICAL DOCUMENTATION: JOB ID: [id number] [employer]- All Rights Reserved
[2017-09-17] MEDS: ASPIRIN 81 MG TABLET, CHEWABLE PO SCH (09:54)
[2017-09-17] MEDS: FERROUS SULFATE 325 MG TABLET PO SCH ×3 (09:54→16:20)
[2017-09-17] MEDS: PREDNISONE 20 MG TABLET PO SCH (09:54)
[2017-09-17] MEDS: OXYCODONE-ACETAMINOPHEN 5-325 MG TABLET PO PRN ×2 (11:37→20:30)
--- NOTE | 2017-09-17 13:44 | PDOC PROGRESS REPORT ---
Subjective Progress Note for:: 09/17/17 Subjective:: Patient has no complaints, post revision of left above-knee amputation Reason For Visit: WOUND INFECTION Physical Exam Vital Signs: Temp Pulse Resp BP Pulse Ox 98.7 F 76 12 159/98 H 100 09/17/17 12:04 09/17/17 12:04 09/17/17 12:04 09/17/17 12:04 09/17/17 12:04 Intake & Output 09/16/17 09/17/17 09/18/17 06:59 06:59 06:59 Intake Total 3415 2740 Output Total 3150 3240 Balance 265 -500 General appearance: PRESENT: no acute distress Head exam: PRESENT: atraumatic Neck exam: PRESENT: full ROM, JVD Respiratory exam: PRESENT: clear to auscultation rei Cardiovascular exam: PRESENT: RRR GI/Abdominal exam: PRESENT: normal bowel sounds, soft - Dressings on both above- knee amputation sites are clean, dry, and intact Results Laboratory Results: 09/17/17 05:51 09/15/17 15:30 09/16/17 09/17/17 17:00 05:51 WBC 9.0 D RBC 3.69 L Hgb 9.9 L Hct 29.9 L MCV 81 MCH 26.9 L MCHC 33.2 RDW 16.8 H Plt Count 243 Seg Neutrophils % Not Reportable Lymphocytes % Not Reportable Monocytes % Not Reportable Eosinophils % Not Reportable Basophils % Not Reportable Absolute Neutrophils Not Reportable Absolute Lymphocytes Not Reportable Absolute Monocytes Not Reportable Absolute Eosinophils Not Reportable Absolute Basophils Not Reportable C-Reactive Protein 9.7 Impressions: Femur X-Ray 08/28/17 10:15 IMPRESSION: Relatively intact left mid leg amputation site. Findings as above. Surveillance followup radiographs may prove helpful to exclude developing osteomyelitis. Lower Extremity MRI 08/31/17 12:30 IMPRESSION: 1. Bilateral amputations with minimal reactive bone edema and regional soft tissue edema without drainable abscess. Doubt osteomyelitis, marrow signal changes may simply be related to overlying soft tissue infection and irritation. Surveillance followup radiographs to assess for progressive bone resorption recommended. Progressive bone lysis would suggest osteomyelitis. Chest X-Ray 09/03/17 00:00 IMPRESSION: NO ACUTE RADIOGRAPHIC FINDING IN THE CHEST. RIGHT IJ VENOUS CATHETER TERMINATES WITHIN THE RIGHT ATRIUM. CONSIDER PULLING BACK 4 TO 5 CM. Guidance Fluoroscopy 09/17/17 00:00 IMPRESSION: SUCCESSFUL PLACEMENT OF A 5 FR DUAL LUMEN 31 CM PICC IN THE RIGHT BASILIC VEIN. Interventional Vascular Procedure 09/17/17 00:00 IMPRESSION: SUCCESSFUL PLACEMENT OF A 5 FR DUAL LUMEN 31 CM PICC IN THE RIGHT BASILIC VEIN. PICC Line Insertion 09/17/17 00:00 IMPRESSION: SUCCESSFUL PLACEMENT OF A 5 FR DUAL LUMEN 31 CM PICC IN THE RIGHT BASILIC VEIN. Assessment & Plan - Diagnosis (1) Abscess of left leg Is this a current diagnosis for this admission?: Yes - Plan Summary Plan Summary: Is awaiting placement.
--- NOTE | 2017-09-17 15:46 | PDOC PROGRESS REPORT ---
Subjective Progress Note for:: 09/17/17 Subjective:: Patient was admitted to the surgical service after spending 2-1/2 weeks down in the emergency room. She was recently discharged from an outside facility [facility] and came to [place] to see her family. While she was here she started having lower extremity swelling and presented to the emergency room. While she was down there over the last 2 weeks her stumps developed ulcers that began draining purulent fluid. This necessitated admission with debridement. 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 She is been anemic and required blood transfusion. The patient was stable and signed off of by this service on September 06. This morning I received a phone call from the nurse asking the medicine service to reconsult secondary to rash. According to the nurse the patient developed a rash on Wednesday that has gotten progressively worse and involves the palms of her hands as well as her mucous membranes. In my conversation with the patient, she tells me that the rash is actually been present since last week. She states that it started on the left arm and then spread everywhere. 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 She states that she believes it was the last antibiotic she was on that caused this issue. She was last on Zosyn. According to the patient the zosyn was stopped 09/04. The patient states that the rash started off a small flesh-colored bumps and then progressed all over. She says that it is very itchy and that she has been scratching which is why some areas have scabs over them. Today I find the patient sitting on the North waiting looking out of the picture window. She tells me that she feels much better and that the itching has subsided greatly. She is happy that her skin issues seem to be slowly resolving and "drying up". There have been no acute events overnight. Reason For Visit: WOUND INFECTION Physical Exam Vital Signs: Temp Pulse Resp BP Pulse Ox 98.7 F 76 12 159/98 H 100 09/17/17 12:04 09/17/17 12:04 09/17/17 12:04 09/17/17 12:04 09/17/17 12:04 Intake & Output 11/30/17 12/01/17 12/02/17 06:59 06:59 06:59 Intake Total 3415 2740 540 Output Total 3150 3240 Balance 265 -500 540 GENERAL: This is a well-developed chronically ill appearing -[place] female sitting in a wheelchair HEART: Regular rate and rhythm. No murmurs, rubs or gallops. LUNGS: Clear to auscultation bilaterally with equal rise and fall of the chest. ABDOMEN: Soft, nontender, nondistended with normoactive bowel sounds EXTREMETIES: No clubbing or cyanosis. The patient has bilateral AKA. Her stumps are appropriately dressed. Her finger has stitches. NEURO: Awake, alert and oriented 3. Cranial nerves II through XII are grossly intact. Skin: The patient's stumps are currently wrapped in gauze. Her skin appears dry with exfoliating patches scattered throughout her face and on her arms. Results Laboratory Results: 09/17/17 05:51 09/15/17 15:30 09/16/17 09/17/17 17:00 05:51 WBC 9.0 D RBC 3.69 L Hgb 9.9 L Hct 29.9 L MCV 81 MCH 26.9 L MCHC 33.2 RDW 16.8 H Plt Count 243 Seg Neutrophils % Not Reportable Lymphocytes % Not Reportable Monocytes % Not Reportable Eosinophils % Not Reportable Basophils % Not Reportable Absolute Neutrophils Not Reportable Absolute Lymphocytes Not Reportable Absolute Monocytes Not Reportable Absolute Eosinophils Not Reportable Absolute Basophils Not Reportable C-Reactive Protein 9.7 Impressions: Femur X-Ray 08/28/17 10:15 IMPRESSION: Relatively intact left mid leg amputation site. Findings as above. Surveillance followup radiographs may prove helpful to exclude developing osteomyelitis. Lower Extremity MRI 08/31/17 12:30 IMPRESSION: 1. Bilateral amputations with minimal reactive bone edema and regional soft tissue edema without drainable abscess. Doubt osteomyelitis, marrow signal changes may simply be related to overlying soft tissue infection and irritation. Surveillance followup radiographs to assess for progressive bone resorption recommended. Progressive bone lysis would suggest osteomyelitis. Chest X-Ray 09/03/17 00:00 IMPRESSION: NO ACUTE RADIOGRAPHIC FINDING IN THE CHEST. RIGHT IJ VENOUS CATHETER TERMINATES WITHIN THE RIGHT ATRIUM. CONSIDER PULLING BACK 4 TO 5 CM. Guidance Fluoroscopy 09/17/17 00:00 IMPRESSION: SUCCESSFUL PLACEMENT OF A 5 FR DUAL LUMEN 31 CM PICC IN THE RIGHT BASILIC VEIN. Interventional Vascular Procedure 09/17/17 00:00 IMPRESSION: SUCCESSFUL PLACEMENT OF A 5 FR DUAL LUMEN 31 CM PICC IN THE RIGHT BASILIC VEIN. PICC Line Insertion 09/17/17 00:00 IMPRESSION: SUCCESSFUL PLACEMENT OF A 5 FR DUAL LUMEN 31 CM PICC IN THE RIGHT BASILIC VEIN. Assessment & Plan - Diagnosis (1) Allergic reaction caused by a drug Qualifiers: Encounter type: initial encounter Qualified Code(s): T78.40XA - Allergy, unspecified, initial encounter Is this a current diagnosis for this admission?: Yes Plan: The patient seems to have what is likely a drug reaction. Based on what I see the patient likely does not have Starkey-Ruddy. Solu-Medrol has been discontinued. Patient is now on prednisone. She will likely need a prolonged taper. (2) Ulcer of right lower extremity Is this a current diagnosis for this admission?: Yes Plan: status post incision and drainage. Surgery managing (3) Alcohol use Plan: Patient's last use was 3 months ago. Recommend continued cessation. (4) Cocaine abuse Plan: The patient states last use was 3 months ago. It should be noted that her UDS was positive for cocaine on August 15. Recommend continued cessation. (5) Tobacco abuse Is this a current diagnosis for this admission?: Yes Plan: Recommend continued cessation. Last use was 3 months ago (7) Essential hypertension Is this a current diagnosis for this admission?: Yes Plan: Blood pressures have been very reasonable. (8) SLE (systemic lupus erythematosus) Qualifiers: Systemic lupus erythematosus type: unspecified Systemic lupus erythematosus organ involvement: unspecified Qualified Code(s): M32.9 - Systemic lupus erythematosus, unspecified Is this a current diagnosis for this admission?: Yes Plan: There are no home medications listed. We will need to verify with pharmacy. The patient is not currently receiving any medications. (9) Anemia Plan: This is most likely combined anemia of chronic disease and iron deficiency. Currently stable - Time Time Spent with patient: 15-24 minutes
[2017-09-17] MEDS ORDERED: HYDRALAZINE HCL INJ/PF 20 MG/1 ML SDV IV PRN (23:32)
[2017-09-18] MEDS: FAMOTIDINE 20 MG TABLET PO SCH ×2 (06:04→17:09)
[2017-09-18] MEDS: FERROUS SULFATE 325 MG TABLET PO SCH ×3 (08:28→16:51)
--- NOTE | 2017-09-18 11:42 | PDOC PROGRESS REPORT ---
Subjective Progress Note for:: 09/18/17 Subjective:: Pt states that her rash is improving. Pt states that she does have SLE. 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 Pt states that it has caused her to lose her lower ext. Reason For Visit: WOUND INFECTION Physical Exam Vital Signs: Temp Pulse Resp BP Pulse Ox 98.7 F 78 16 120/80 99 09/18/17 08:00 09/18/17 08:00 09/18/17 08:00 09/18/17 08:00 09/18/17 08:00 Intake & Output 09/17/17 09/18/17 09/19/17 06:59 06:59 06:59 Intake Total 2740 735 Output Total 3240 850 Balance -500 -115 General appearance: PRESENT: no acute distress, thin Head exam: PRESENT: atraumatic, normocephalic Eye exam: PRESENT: conjunctiva pink, EOMI, PERRLA. ABSENT: scleral icterus Ear exam: PRESENT: normal external ear exam Mouth exam: PRESENT: moist, tongue midline Neck exam: ABSENT: carotid bruit, JVD, lymphadenopathy, thyromegaly Respiratory exam: PRESENT: clear to auscultation rei. ABSENT: rales, rhonchi, wheezes Cardiovascular exam: PRESENT: RRR. ABSENT: diastolic murmur, rubs, systolic murmur Pulses: PRESENT: normal dorsalis pedis pul GI/Abdominal exam: PRESENT: normal bowel sounds, soft. ABSENT: distended, guarding, mass, organolmegaly, rebound, tenderness Rectal exam: PRESENT: deferred Neurological exam: PRESENT: alert, awake, oriented to person, oriented to place , oriented to time, oriented to situation, CN II-XII grossly intact. ABSENT: motor sensory deficit Psychiatric exam: PRESENT: appropriate affect, normal mood. ABSENT: homicidal ideation, suicidal ideation Skin exam: PRESENT: other - multiple areas of dry flakey skin, + malar rash on face Results Laboratory Results: 09/17/17 05:51 09/15/17 15:30 Impressions: Femur X-Ray 08/28/17 10:15 IMPRESSION: Relatively intact left mid leg amputation site. Findings as above. Surveillance followup radiographs may prove helpful to exclude developing osteomyelitis. Lower Extremity MRI 08/31/17 12:30 IMPRESSION: 1. Bilateral amputations with minimal reactive bone edema and regional soft tissue edema without drainable abscess. Doubt osteomyelitis, marrow signal changes may simply be related to overlying soft tissue infection and irritation. Surveillance followup radiographs to assess for progressive bone resorption recommended. Progressive bone lysis would suggest osteomyelitis. Chest X-Ray 09/03/17 00:00 IMPRESSION: NO ACUTE RADIOGRAPHIC FINDING IN THE CHEST. RIGHT IJ VENOUS CATHETER TERMINATES WITHIN THE RIGHT ATRIUM. CONSIDER PULLING BACK 4 TO 5 CM. Guidance Fluoroscopy 09/17/17 00:00 IMPRESSION: SUCCESSFUL PLACEMENT OF A 5 FR DUAL LUMEN 31 CM PICC IN THE RIGHT BASILIC VEIN. Interventional Vascular Procedure 09/17/17 00:00 IMPRESSION: SUCCESSFUL PLACEMENT OF A 5 FR DUAL LUMEN 31 CM PICC IN THE RIGHT BASILIC VEIN. PICC Line Insertion 09/17/17 00:00 IMPRESSION: SUCCESSFUL PLACEMENT OF A 5 FR DUAL LUMEN 31 CM PICC IN THE RIGHT BASILIC VEIN. Assessment & Plan - Diagnosis (1) SLE (systemic lupus erythematosus) Qualifiers: Systemic lupus erythematosus type: unspecified Systemic lupus erythematosus organ involvement: unspecified Qualified Code(s): M32.9 - Systemic lupus erythematosus, unspecified Is this a current diagnosis for this admission?: Yes Plan: Recommend continuation of steroids. Pt rash appears to be improving. Most likely secondary to Lupus. 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 (2) Hypomagnesemia Is this a current diagnosis for this admission?: Yes Plan: Will give magnesium replacement. (3) Vasculitis Is this a current diagnosis for this admission?: Yes Plan: continue steroids.
[2017-09-18] MEDS: ASPIRIN 81 MG TABLET, CHEWABLE PO SCH (12:01)
[2017-09-18] MEDS: PREDNISONE 20 MG TABLET PO SCH (12:01)
[2017-09-18] MEDS: OXYCODONE-ACETAMINOPHEN 5-325 MG TABLET PO PRN ×2 (14:16→21:31)
[2017-09-18] MEDS: MAGNESIUM OXIDE 400 MG TABLET PO SCH (17:09)
[2017-09-19] MEDS: FAMOTIDINE 20 MG TABLET PO SCH ×2 (05:22→17:48)
[2017-09-19] MEDS: OXYCODONE-ACETAMINOPHEN 5-325 MG TABLET PO PRN ×3 (05:22→17:47)
[2017-09-19 05:57] LABS: ABSOLUTE MONOCYTES (AUTO) 1.1 10^3/uL (0.1-1.4); ABSOLUTE NEUT (AUTO) 4.6 10^3/uL (1.7-8.2); BASOPHILS % (AUTO) 0.3 % (0-2); EOSINOPHILS % (AUTO) 0.1 % (0-6); HEMATOCRIT 30.3 % (36.0-47.0); LYMPHOCYTES % (AUTO) 25.6 % (13-45); MEAN CORPUSCULAR HEMOGLOBIN 26.7 pg (27.0-33.4); MEAN CORPUSCULAR HGB CONC 32.9 g/dL (32.0-36.0); MEAN CORPUSCULAR VOLUME 81 fl (80-97); MONOCYTES % (AUTO) 14.1 % (3-13); PLATELET COUNT 288 10^3/uL (150-450); RED BLOOD COUNT 3.73 10^6/uL (3.72-5.28); RED CELL DISTRIBUTION WIDTH 16.9 % (11.5-14.0); SEGMENTED NEUTROPHILS % (AUTO) 59.9 % (42-78); TOTAL CELLS COUNTED % (AUTO) 100 %; WHITE BLOOD COUNT 7.7 10^3/uL (4.0-10.5)
[2017-09-19 06:13] LABS: ALANINE AMINOTRANSFERASE 29 U/L (9-52); ALBUMIN 4.2 g/dL (3.5-5.0); ALKALINE PHOSPHATASE 59 U/L (38-126); ANION GAP 13 (5-19); ASPARTATE AMINO TRANSFERASE 11 U/L (14-36); BILIRUBIN,DIRECT 0.3 mg/dL (0.0-0.4); BILIRUBIN,TOTAL 0.3 mg/dL (0.2-1.3); BLOOD UREA NITROGEN 21 mg/dL (7-20); CALCIUM 9.6 mg/dL (8.4-10.2); CARBON DIOXIDE 22 mmol/L (22-30); CHLORIDE 107 mmol/L (98-107); GLUCOSE 82 mg/dL (75-110); SODIUM 141.5 mmol/L (137-145); TOTAL PROTEIN 8.2 g/dL (6.3-8.2)
[2017-09-19] MEDS: PREDNISONE 20 MG TABLET PO SCH (09:10)
[2017-09-19] MEDS: FERROUS SULFATE 325 MG TABLET PO SCH ×3 (09:11→17:48)
[2017-09-19] MEDS: ASPIRIN 81 MG TABLET, CHEWABLE PO SCH (09:11)
[2017-09-19] MEDS: MAGNESIUM OXIDE 400 MG TABLET PO SCH ×2 (09:11→17:47)
--- NOTE | 2017-09-19 18:32 | PDOC PROGRESS REPORT ---
Subjective Progress Note for:: 09/19/17 Subjective:: The patient has no complaints Reason For Visit: WOUND INFECTION Physical Exam Vital Signs: Temp Pulse Resp BP Pulse Ox 98.1 F 85 16 140/88 H 100 09/19/17 14:00 09/19/17 14:00 09/19/17 14:00 09/19/17 14:00 09/19/17 14:00 Intake & Output 09/18/17 09/19/17 09/20/17 06:59 06:59 06:59 Intake Total 735 740 Output Total 850 900 Balance -115 -160 Weight 49.6 kg Extremities exam: PRESENT: other - Dressings on both AKA wounds are intact. Dressings were changed by nurses this morning. Results Laboratory Results: 09/19/17 05:15 09/19/17 05:15 09/19/17 09/19/17 05:15 05:15 WBC 7.7 RBC 3.73 Hgb 10.0 L Hct 30.3 L MCV 81 MCH 26.7 L MCHC 32.9 RDW 16.9 H Plt Count 288 Seg Neutrophils % 59.9 Lymphocytes % 25.6 Monocytes % 14.1 H Eosinophils % 0.1 Basophils % 0.3 Absolute Neutrophils 4.6 Absolute Lymphocytes 2.0 Absolute Monocytes 1.1 Absolute Eosinophils 0.0 Absolute Basophils 0.0 Sodium 141.5 Potassium 4.0 Chloride 107 Carbon Dioxide 22 Anion Gap 13 BUN 21 H Creatinine 0.57 Est GFR ( Amer) > 60 Est GFR (Non-Af Amer) > 60 Glucose 82 Calcium 9.6 Total Bilirubin 0.3 AST 11 L ALT 29 Alkaline Phosphatase 59 Total Protein 8.2 Albumin 4.2 Impressions: Femur X-Ray 08/28/17 10:15 IMPRESSION: Relatively intact left mid leg amputation site. Findings as above. Surveillance followup radiographs may prove helpful to exclude developing osteomyelitis. Lower Extremity MRI 08/31/17 12:30 IMPRESSION: 1. Bilateral amputations with minimal reactive bone edema and regional soft tissue edema without drainable abscess. Doubt osteomyelitis, marrow signal changes may simply be related to overlying soft tissue infection and irritation. Surveillance followup radiographs to assess for progressive bone resorption recommended. Progressive bone lysis would suggest osteomyelitis. Chest X-Ray 09/03/17 00:00 IMPRESSION: NO ACUTE RADIOGRAPHIC FINDING IN THE CHEST. RIGHT IJ VENOUS CATHETER TERMINATES WITHIN THE RIGHT ATRIUM. CONSIDER PULLING BACK 4 TO 5 CM. Guidance Fluoroscopy 09/17/17 00:00 IMPRESSION: SUCCESSFUL PLACEMENT OF A 5 FR DUAL LUMEN 31 CM PICC IN THE RIGHT BASILIC VEIN. Interventional Vascular Procedure 09/17/17 00:00 IMPRESSION: SUCCESSFUL PLACEMENT OF A 5 FR DUAL LUMEN 31 CM PICC IN THE RIGHT BASILIC VEIN. PICC Line Insertion 09/17/17 00:00 IMPRESSION: SUCCESSFUL PLACEMENT OF A 5 FR DUAL LUMEN 31 CM PICC IN THE RIGHT BASILIC VEIN. Assessment & Plan - Diagnosis (1) Abscess of left leg Is this a current diagnosis for this admission?: Yes - Plan Summary Plan Summary: patient awaiting placement in [place]
--- NOTE | 2017-09-19 19:25 | PDOC PROGRESS REPORT ---
Subjective Progress Note for:: 09/19/17 Subjective:: Patient was admitted to the surgical service after spending 2-1/2 weeks down in the emergency room. She was recently discharged from an outside facility [facility] and came to [place] to see her family. While she was here she started having lower extremity swelling and presented to the emergency room. While she was down there over the last 2 weeks her stumps developed ulcers that began draining purulent fluid. This necessitated admission with debridement. 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 She is been anemic and required blood transfusion. The patient was stable and signed off of by this service on September 06. This morning I received a phone call from the nurse asking the medicine service to reconsult secondary to rash. According to the nurse the patient developed a rash on Wednesday that has gotten progressively worse and involves the palms of her hands as well as her mucous membranes. In my conversation with the patient, she tells me that the rash is actually been present since last week. She states that it started on the left arm and then spread everywhere. 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 She states that she believes it was the last antibiotic she was on that caused this issue. She was last on Zosyn. According to the patient the zosyn was stopped 09/04. The patient states that the rash started off a small flesh-colored bumps and then progressed all over. She says that it is very itchy and that she has been scratching which is why some areas have scabs over them. Today the patient found me while he was running on the north end of the hallway. She has questions about whether or not she can have continued use of topical Benadryl. I have looked in her chart and this is currently ordered so I am not exactly sure why she is not receiving it. She would like to be rechecked for MRSA so that she can come off of precautions. Reason For Visit: WOUND INFECTION Physical Exam Vital Signs: Temp Pulse Resp BP Pulse Ox 98.1 F 85 16 140/88 H 100 09/19/17 14:00 09/19/17 14:00 09/19/17 14:00 09/19/17 14:00 09/19/17 14:00 Intake & Output 09/18/17 09/19/17 09/20/17 06:59 06:59 06:59 Intake Total 735 740 Output Total 850 900 Balance -115 -160 Weight 49.6 kg GENERAL: This is a well-developed chronically ill appearing -Wallis[place] female sitting in her wheelchair. HEART: Regular rate and rhythm. No murmurs, rubs or gallops. LUNGS: Clear to auscultation bilaterally with equal rise and fall of the chest. ABDOMEN: Soft, nontender, nondistended with normoactive bowel sounds EXTREMETIES: No clubbing or cyanosis. The patient has bilateral AKA. Her stumps are appropriately dressed. Her finger has stitches. NEURO: Awake, alert and oriented 3. Cranial nerves II through XII are grossly intact. Skin: The patient's stumps are currently wrapped in gauze. The patient skin is still peeling on the face and on the arms. Her skin is beginning to clear up in fact. Results Laboratory Results: 09/19/17 05:15 09/19/17 05:15 09/19/17 09/19/17 05:15 05:15 WBC 7.7 RBC 3.73 Hgb 10.0 L Hct 30.3 L MCV 81 MCH 26.7 L MCHC 32.9 RDW 16.9 H Plt Count 288 Seg Neutrophils % 59.9 Lymphocytes % 25.6 Monocytes % 14.1 H Eosinophils % 0.1 Basophils % 0.3 Absolute Neutrophils 4.6 Absolute Lymphocytes 2.0 Absolute Monocytes 1.1 Absolute Eosinophils 0.0 Absolute Basophils 0.0 Sodium 141.5 Potassium 4.0 Chloride 107 Carbon Dioxide 22 Anion Gap 13 BUN 21 H Creatinine 0.57 Est GFR ( Amer) > 60 Est GFR (Non-Af Amer) > 60 Glucose 82 Calcium 9.6 Total Bilirubin 0.3 AST 11 L ALT 29 Alkaline Phosphatase 59 Total Protein 8.2 Albumin 4.2 Impressions: Femur X-Ray 08/28/17 10:15 IMPRESSION: Relatively intact left mid leg amputation site. Findings as above. Surveillance followup radiographs may prove helpful to exclude developing osteomyelitis. Lower Extremity MRI 08/31/17 12:30 IMPRESSION: 1. Bilateral amputations with minimal reactive bone edema and regional soft tissue edema without drainable abscess. Doubt osteomyelitis, marrow signal changes may simply be related to overlying soft tissue infection and irritation. Surveillance followup radiographs to assess for progressive bone resorption recommended. Progressive bone lysis would suggest osteomyelitis. Chest X-Ray 09/03/17 00:00 IMPRESSION: NO ACUTE RADIOGRAPHIC FINDING IN THE CHEST. RIGHT IJ VENOUS CATHETER TERMINATES WITHIN THE RIGHT ATRIUM. CONSIDER PULLING BACK 4 TO 5 CM. Guidance Fluoroscopy 09/17/17 00:00 IMPRESSION: SUCCESSFUL PLACEMENT OF A 5 FR DUAL LUMEN 31 CM PICC IN THE RIGHT BASILIC VEIN. Interventional Vascular Procedure 09/17/17 00:00 IMPRESSION: SUCCESSFUL PLACEMENT OF A 5 FR DUAL LUMEN 31 CM PICC IN THE RIGHT BASILIC VEIN. PICC Line Insertion 09/17/17 00:00 IMPRESSION: SUCCESSFUL PLACEMENT OF A 5 FR DUAL LUMEN 31 CM PICC IN THE RIGHT BASILIC VEIN. Assessment & Plan - Diagnosis (1) Allergic reaction caused by a drug Qualifiers: Encounter type: initial encounter Qualified Code(s): T78.40XA - Allergy, unspecified, initial encounter Is this a current diagnosis for this admission?: Yes Plan: The patient seems to have what is likely a drug reaction. Based on what I see the patient likely does not have Starkey-Ruddy. Solu-Medrol has been discontinued. Patient is now on prednisone. She will likely need a prolonged taper. Her rash is clearing nicely. Continue topical Benadryl. This is already ordered. (2) Ulcer of right lower extremity Is this a current diagnosis for this admission?: Yes Plan: status post incision and drainage. Surgery managing (3) Alcohol use Plan: Patient's last use was 3 months ago. Recommend continued cessation. (4) Cocaine abuse Plan: The patient states last use was 3 months ago. It should be noted that her UDS was positive for cocaine on August 15. Recommend continued cessation. (5) Tobacco abuse Is this a current diagnosis for this admission?: Yes Plan: Recommend continued cessation. Last use was 3 months ago (6) Vasculitis Is this a current diagnosis for this admission?: Yes (7) Essential hypertension Is this a current diagnosis for this admission?: Yes Plan: Blood pressures have been very reasonable. (8) SLE (systemic lupus erythematosus) Qualifiers: Systemic lupus erythematosus type: unspecified Systemic lupus erythematosus organ involvement: unspecified Qualified Code(s): M32.9 - Systemic lupus erythematosus, unspecified Is this a current diagnosis for this admission?: Yes Plan: There are no home medications listed. We will need to verify with pharmacy. The patient is not currently receiving any medications. - Time Time Spent with patient: 15-24 minutes
[2017-09-19] MEDS ORDERED: DIPHENHYDRAMINE HCL 2% CREAM 30 GM ONE (21:06)
[2017-09-19] MEDS ORDERED: FLUTICASONE/SALMETEROL DISKUS 500-50 MCG/DOSE IH ONE (21:33)
[2017-09-20] MEDS: OXYCODONE-ACETAMINOPHEN 5-325 MG TABLET PO PRN ×4 (01:05→22:25)
[2017-09-20] MEDS: FAMOTIDINE 20 MG TABLET PO SCH ×2 (06:08→18:02)
[2017-09-20] MEDS: FERROUS SULFATE 325 MG TABLET PO SCH ×3 (08:19→16:56)
[2017-09-20] MEDS: ASPIRIN 81 MG TABLET, CHEWABLE PO SCH (10:31)
[2017-09-20] MEDS: MAGNESIUM OXIDE 400 MG TABLET PO SCH ×2 (10:31→18:02)
[2017-09-20] MEDS: PREDNISONE 20 MG TABLET PO SCH (10:38)
--- NOTE | 2017-09-20 13:17 | PDOC PROGRESS REPORT ---
Subjective Progress Note for:: 09/20/17 Reason For Visit: WOUND INFECTION Has no complaints. Physical Exam Vital Signs: Temp Pulse Resp BP Pulse Ox 98.3 F 78 16 115/67 100 09/20/17 12:20 09/20/17 12:20 09/20/17 12:20 09/20/17 12:20 09/20/17 12:20 Intake & Output 09/19/17 09/20/17 09/21/17 06:59 06:59 06:59 Intake Total 740 824 Output Total 900 0 Balance -160 824 Weight 49.6 kg General appearance: PRESENT: no acute distress Skin exam: PRESENT: other - Right fourth finger wound healing satisfactorily. Sutures out. Right AKA stump wound approximately 1 cm in maximum diameter, nearly completely epithelialized. Left AKA stump lateral and medial sutures out ; central sutures still in Results Laboratory Results: 09/19/17 05:15 09/19/17 05:15 Impressions: Femur X-Ray 08/28/17 10:15 IMPRESSION: Relatively intact left mid leg amputation site. Findings as above. Surveillance followup radiographs may prove helpful to exclude developing osteomyelitis. Lower Extremity MRI 08/31/17 12:30 IMPRESSION: 1. Bilateral amputations with minimal reactive bone edema and regional soft tissue edema without drainable abscess. Doubt osteomyelitis, marrow signal changes may simply be related to overlying soft tissue infection and irritation. Surveillance followup radiographs to assess for progressive bone resorption recommended. Progressive bone lysis would suggest osteomyelitis. Chest X-Ray 09/03/17 00:00 IMPRESSION: NO ACUTE RADIOGRAPHIC FINDING IN THE CHEST. RIGHT IJ VENOUS CATHETER TERMINATES WITHIN THE RIGHT ATRIUM. CONSIDER PULLING BACK 4 TO 5 CM. Guidance Fluoroscopy 09/17/17 00:00 IMPRESSION: SUCCESSFUL PLACEMENT OF A 5 FR DUAL LUMEN 31 CM PICC IN THE RIGHT BASILIC VEIN. Interventional Vascular Procedure 09/17/17 00:00 IMPRESSION: SUCCESSFUL PLACEMENT OF A 5 FR DUAL LUMEN 31 CM PICC IN THE RIGHT BASILIC VEIN. PICC Line Insertion 09/17/17 00:00 IMPRESSION: SUCCESSFUL PLACEMENT OF A 5 FR DUAL LUMEN 31 CM PICC IN THE RIGHT BASILIC VEIN. Assessment & Plan - Diagnosis (1) Abscess of left leg Is this a current diagnosis for this admission?: Yes Plan: Soft tissue wound healing satisfactorily. Left fourth finger wound completely epithelialized; right AKA stump nearly closed and left a stump with majority of stitches out. Recommendation 1. Await transfer to rehab facility. (2) Effusion, left knee Is this a current diagnosis for this admission?: Yes
--- NOTE | 2017-09-20 17:38 | PDOC PROGRESS REPORT ---
Subjective Subjective:: Patient was admitted to the surgical service after spending 2-1/2 weeks down in the emergency room. She was recently discharged from an outside facility [facility] and came to [place] to see her family. While she was here she started having lower extremity swelling and presented to the emergency room. While she was down there over the last 2 weeks her stumps developed ulcers that began draining purulent fluid. This necessitated admission with debridement. 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 She is been anemic and required blood transfusion. The patient was stable and signed off of by this service on September 06. This morning I received a phone call from the nurse asking the medicine service to reconsult secondary to rash. According to the nurse the patient developed a rash on Wednesday that has gotten progressively worse and involves the palms of her hands as well as her mucous membranes. In my conversation with the patient, she tells me that the rash is actually been present since last week. She states that it started on the left arm and then spread everywhere. 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 She states that she believes it was the last antibiotic she was on that caused this issue. She was last on Zosyn. According to the patient the zosyn was stopped 09/04. The patient states that the rash started off a small flesh-colored bumps and then progressed all over. She says that it is very itchy and that she has been scratching which is why some areas have scabs over them. Today the patient found me while he was running on the pediatric bustos. She states that she is feeling well and glad that she was finally allowed to leave her room. MRSA screening is still pending. Reason For Visit: WOUND INFECTION Physical Exam Vital Signs: Temp Pulse Resp BP Pulse Ox 98.6 F 91 18 120/72 100 09/20/17 15:00 09/20/17 15:00 09/20/17 15:00 09/20/17 15:00 09/20/17 15:00 Intake & Output 09/19/17 09/20/17 09/21/17 06:59 06:59 06:59 Intake Total 740 824 Output Total 900 0 Balance -160 824 Weight 49.6 kg GENERAL: This is a well-developed chronically ill appearing -Chinese female sitting in her wheelchair. HEART: Regular rate and rhythm. No murmurs, rubs or gallops. LUNGS: Clear to auscultation bilaterally with equal rise and fall of the chest. ABDOMEN: Soft, nontender, nondistended with normoactive bowel sounds EXTREMETIES: No clubbing or cyanosis. The patient has bilateral AKA. Her stumps are appropriately dressed. Her finger has stitches. NEURO: Awake, alert and oriented 3. Cranial nerves II through XII are grossly intact. Skin: Skin on the patient's face has completely exfoliated. She has been picking at this area and so it appears reddened today. Her skin continues to make drastic improvements in other areas of her body. Results Laboratory Results: 09/19/17 05:15 09/19/17 05:15 09/15/17 16:42 Blood Blood Culture - Final NO GROWTH IN 5 DAYS Impressions: Femur X-Ray 08/28/17 10:15 IMPRESSION: Relatively intact left mid leg amputation site. Findings as above. Surveillance followup radiographs may prove helpful to exclude developing osteomyelitis. Lower Extremity MRI 08/31/17 12:30 IMPRESSION: 1. Bilateral amputations with minimal reactive bone edema and regional soft tissue edema without drainable abscess. Doubt osteomyelitis, marrow signal changes may simply be related to overlying soft tissue infection and irritation. Surveillance followup radiographs to assess for progressive bone resorption recommended. Progressive bone lysis would suggest osteomyelitis. Chest X-Ray 09/03/17 00:00 IMPRESSION: NO ACUTE RADIOGRAPHIC FINDING IN THE CHEST. RIGHT IJ VENOUS CATHETER TERMINATES WITHIN THE RIGHT ATRIUM. CONSIDER PULLING BACK 4 TO 5 CM. Guidance Fluoroscopy 09/17/17 00:00 IMPRESSION: SUCCESSFUL PLACEMENT OF A 5 FR DUAL LUMEN 31 CM PICC IN THE RIGHT BASILIC VEIN. Interventional Vascular Procedure 09/17/17 00:00 IMPRESSION: SUCCESSFUL PLACEMENT OF A 5 FR DUAL LUMEN 31 CM PICC IN THE RIGHT BASILIC VEIN. PICC Line Insertion 09/17/17 00:00 IMPRESSION: SUCCESSFUL PLACEMENT OF A 5 FR DUAL LUMEN 31 CM PICC IN THE RIGHT BASILIC VEIN. Assessment & Plan - Diagnosis (1) Allergic reaction caused by a drug Qualifiers: Encounter type: initial encounter Qualified Code(s): T78.40XA - Allergy, unspecified, initial encounter Is this a current diagnosis for this admission?: Yes Plan: The patient seems to have what is likely a drug reaction. Based on what I see the patient likely does not have Starkey-Ruddy. Solu-Medrol has been discontinued. Patient is now on prednisone. She will likely need a prolonged taper. Her rash is clearing nicely. Continue topical Benadryl. Orders for steroid taper were placed. Will sign off at this time. (2) Ulcer of right lower extremity Is this a current diagnosis for this admission?: Yes Plan: status post incision and drainage. Surgery managing (3) Alcohol use Plan: Patient's last use was 3 months ago. Recommend continued cessation. (4) Cocaine abuse Plan: The patient states last use was 3 months ago. It should be noted that her UDS was positive for cocaine on August 15. Recommend continued cessation. (5) Tobacco abuse Is this a current diagnosis for this admission?: Yes Plan: Recommend continued cessation. Last use was 3 months ago (6) Vasculitis Is this a current diagnosis for this admission?: Yes (7) Essential hypertension Is this a current diagnosis for this admission?: Yes Plan: Blood pressures have been very reasonable. (8) SLE (systemic lupus erythematosus) Qualifiers: Systemic lupus erythematosus type: unspecified Systemic lupus erythematosus organ involvement: unspecified Qualified Code(s): M32.9 - Systemic lupus erythematosus, unspecified Is this a current diagnosis for this admission?: Yes Plan: There are no home medications listed. We will need to verify with pharmacy. The patient is not currently receiving any medications. (9) Anemia Plan: This is most likely combined anemia of chronic disease and iron deficiency. Currently stable - Time Time Spent with patient: 15-24 minutes - Plan Summary Plan Summary: Thank you for this consult. We will sign off at this time.
[2017-09-21] MEDS: OXYCODONE-ACETAMINOPHEN 5-325 MG TABLET PO PRN ×4 (03:24→18:04)
[2017-09-21] MEDS: FAMOTIDINE 20 MG TABLET PO SCH ×2 (06:25→18:03)
[2017-09-21] MEDS: FERROUS SULFATE 325 MG TABLET PO SCH ×3 (09:16→18:03)
[2017-09-21] MEDS: PREDNISONE 20 MG TABLET PO SCH (09:16)
[2017-09-21] MEDS: ASPIRIN 81 MG TABLET, CHEWABLE PO SCH (09:16)
[2017-09-21] MEDS: MAGNESIUM OXIDE 400 MG TABLET PO SCH ×2 (09:16→18:03)
[2017-09-22] MEDS: OXYCODONE-ACETAMINOPHEN 5-325 MG TABLET PO PRN ×3 (04:31→19:02)
[2017-09-22] MEDS: FAMOTIDINE 20 MG TABLET PO SCH ×2 (05:14→17:55)
[2017-09-22] MEDS: FERROUS SULFATE 325 MG TABLET PO SCH ×3 (09:46→17:54)
[2017-09-22] MEDS: PREDNISONE 20 MG TABLET PO SCH (09:46)
[2017-09-22] MEDS: ASPIRIN 81 MG TABLET, CHEWABLE PO SCH (09:46)
[2017-09-22] MEDS: MAGNESIUM OXIDE 400 MG TABLET PO SCH ×2 (09:47→17:54)
[2017-09-22] MEDS ORDERED: TUBERCULIN,PURIF.PROT.DERIV. 5 TU/0.1 ML TEST 1 ML VIAL ID ONE (13:00)
--- NOTE | 2017-09-22 19:55 | PDOC PROGRESS REPORT ---
Subjective Progress Note for:: 09/22/17 Subjective:: Complains of an unusual looking rash on her left upper lateral arm, and her anterior chest wall. AKA wounds healing nicely. Reason For Visit: WOUND INFECTION Physical Exam Vital Signs: Temp Pulse Resp BP Pulse Ox 97.4 F 70 18 126/77 H 100 09/22/17 00:10 09/22/17 00:10 09/22/17 00:10 09/22/17 00:10 09/22/17 00:10 Intake & Output 09/21/17 09/22/17 09/23/17 06:59 06:59 06:59 Intake Total 1155 600 Output Total 2250 1000 Balance -1095 -1000 600 Extremities exam: PRESENT: other - Half the sutures removed by Dr. Lee the day before. The wound is granulating nicely. Results Laboratory Results: 09/19/17 05:15 09/19/17 05:15 Impressions: Femur X-Ray 08/28/17 10:15 IMPRESSION: Relatively intact left mid leg amputation site. Findings as above. Surveillance followup radiographs may prove helpful to exclude developing osteomyelitis. Lower Extremity MRI 08/31/17 12:30 IMPRESSION: 1. Bilateral amputations with minimal reactive bone edema and regional soft tissue edema without drainable abscess. Doubt osteomyelitis, marrow signal changes may simply be related to overlying soft tissue infection and irritation. Surveillance followup radiographs to assess for progressive bone resorption recommended. Progressive bone lysis would suggest osteomyelitis. Chest X-Ray 09/03/17 00:00 IMPRESSION: NO ACUTE RADIOGRAPHIC FINDING IN THE CHEST. RIGHT IJ VENOUS CATHETER TERMINATES WITHIN THE RIGHT ATRIUM. CONSIDER PULLING BACK 4 TO 5 CM. Guidance Fluoroscopy 09/17/17 00:00 IMPRESSION: SUCCESSFUL PLACEMENT OF A 5 FR DUAL LUMEN 31 CM PICC IN THE RIGHT BASILIC VEIN. Interventional Vascular Procedure 09/17/17 00:00 IMPRESSION: SUCCESSFUL PLACEMENT OF A 5 FR DUAL LUMEN 31 CM PICC IN THE RIGHT BASILIC VEIN. PICC Line Insertion 09/17/17 00:00 IMPRESSION: SUCCESSFUL PLACEMENT OF A 5 FR DUAL LUMEN 31 CM PICC IN THE RIGHT BASILIC VEIN. Assessment & Plan - Diagnosis (1) Abscess of left leg Is this a current diagnosis for this admission?: Yes - Plan Summary Plan Summary: Continue present therapy. Patient awaiting placement.
[2017-09-22] MEDS: HYDROCORTISONE 1% CREAM 28.35 GM TP SCH (22:34)
[2017-09-23] MEDS: OXYCODONE-ACETAMINOPHEN 5-325 MG TABLET PO PRN ×5 (00:18→18:54)
[2017-09-23] MEDS: FAMOTIDINE 20 MG TABLET PO SCH ×2 (05:35→18:25)
[2017-09-23] MEDS: MAGNESIUM OXIDE 400 MG TABLET PO SCH ×2 (09:48→18:25)
[2017-09-23] MEDS: ASPIRIN 81 MG TABLET, CHEWABLE PO SCH (09:48)
[2017-09-23] MEDS: PREDNISONE 20 MG TABLET PO SCH (09:48)
[2017-09-23] MEDS: FERROUS SULFATE 325 MG TABLET PO SCH ×3 (09:48→18:25)
[2017-09-23] MEDS: HYDROCORTISONE 1% CREAM 28.35 GM TP SCH ×2 (09:59→21:30)
--- NOTE | 2017-09-23 11:29 | PDOC PROGRESS REPORT ---
Subjective Progress Note for:: 09/23/17 Subjective:: No complaints Reason For Visit: WOUND INFECTION Physical Exam Vital Signs: Temp Pulse Resp BP Pulse Ox 98.1 F 87 20 128/76 H 100 09/23/17 04:00 09/23/17 04:00 09/23/17 04:00 09/23/17 04:00 09/23/17 04:00 Intake & Output 09/22/17 09/23/17 09/24/17 06:59 06:59 06:59 Intake Total 1400 Output Total 1000 1700 Balance -1000 -300 General appearance: PRESENT: no acute distress, cooperative Respiratory exam: PRESENT: clear to auscultation rei Cardiovascular exam: PRESENT: RRR Extremities exam: PRESENT: other - Bilateral stumps appear very clean right- sided stump with healing wound with no purulent drainage no surrounding erythema. Left-sided wound was sutures in place looks good. Results Laboratory Results: 09/19/17 05:15 09/19/17 05:15 Impressions: Femur X-Ray 08/28/17 10:15 IMPRESSION: Relatively intact left mid leg amputation site. Findings as above. Surveillance followup radiographs may prove helpful to exclude developing osteomyelitis. Lower Extremity MRI 08/31/17 12:30 IMPRESSION: 1. Bilateral amputations with minimal reactive bone edema and regional soft tissue edema without drainable abscess. Doubt osteomyelitis, marrow signal changes may simply be related to overlying soft tissue infection and irritation. Surveillance followup radiographs to assess for progressive bone resorption recommended. Progressive bone lysis would suggest osteomyelitis. Chest X-Ray 09/03/17 00:00 IMPRESSION: NO ACUTE RADIOGRAPHIC FINDING IN THE CHEST. RIGHT IJ VENOUS CATHETER TERMINATES WITHIN THE RIGHT ATRIUM. CONSIDER PULLING BACK 4 TO 5 CM. Guidance Fluoroscopy 09/17/17 00:00 IMPRESSION: SUCCESSFUL PLACEMENT OF A 5 FR DUAL LUMEN 31 CM PICC IN THE RIGHT BASILIC VEIN. Interventional Vascular Procedure 09/17/17 00:00 IMPRESSION: SUCCESSFUL PLACEMENT OF A 5 FR DUAL LUMEN 31 CM PICC IN THE RIGHT BASILIC VEIN. PICC Line Insertion 09/17/17 00:00 IMPRESSION: SUCCESSFUL PLACEMENT OF A 5 FR DUAL LUMEN 31 CM PICC IN THE RIGHT BASILIC VEIN. 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 Wound appears to be healing well. Awaiting placement.
--- NOTE | 2017-09-23 16:31 | PDOC PROGRESS REPORT ---
Subjective Progress Note for:: 09/23/17 Subjective:: Sound hospitalist rest to come back and see the patient today. She has worsening wound on her left arm as well as her left anterior chest wall. She states that the wounds are quite painful and the pain is almost unbearable at times. She states that the rash that we were initially consulted for seems to have resolved. She denies fever chills. No chest pain, shortness of breath or heart palpitations. No nausea vomiting or diarrhea. No dysuria, frequency or hematuria. Reason For Visit: WOUND INFECTION Physical Exam Vital Signs: Temp Pulse Resp BP Pulse Ox 98.1 F 87 20 128/76 H 100 09/23/17 04:00 09/23/17 04:00 09/23/17 04:00 09/23/17 04:00 09/23/17 04:00 Intake & Output 09/22/17 09/23/17 09/24/17 06:59 06:59 06:59 Intake Total 1400 Output Total 1000 1700 Balance -1000 -300 General appearance: PRESENT: other - This is an ill-appearing -[place] female Head exam: PRESENT: atraumatic, normocephalic Mouth exam: PRESENT: moist, tongue midline Respiratory exam: PRESENT: clear to auscultation rei. ABSENT: rales, rhonchi, wheezes Cardiovascular exam: PRESENT: RRR. ABSENT: diastolic murmur, rubs, systolic murmur GI/Abdominal exam: PRESENT: normal bowel sounds, soft. ABSENT: distended, guarding, mass, organolmegaly, rebound, tenderness Rectal exam: PRESENT: deferred Extremities exam: PRESENT: other - Both legs surgically absent above the knee Neurological exam: PRESENT: alert, awake, oriented to person, oriented to place , oriented to time, oriented to situation, CN II-XII grossly intact. ABSENT: motor sensory deficit Skin exam: PRESENT: other - Patient has open wound on the left arm that is about 5 inches long and 3 inches wide. It is somewhat erythematous in the middle no surrounding erythema. She also has an open wound on the anterior left chest wall that is about the size of a quarter. Results Laboratory Results: 09/19/17 05:15 09/19/17 05:15 Impressions: Femur X-Ray 08/28/17 10:15 IMPRESSION: Relatively intact left mid leg amputation site. Findings as above. Surveillance followup radiographs may prove helpful to exclude developing osteomyelitis. Lower Extremity MRI 08/31/17 12:30 IMPRESSION: 1. Bilateral amputations with minimal reactive bone edema and regional soft tissue edema without drainable abscess. Doubt osteomyelitis, marrow signal changes may simply be related to overlying soft tissue infection and irritation. Surveillance followup radiographs to assess for progressive bone resorption recommended. Progressive bone lysis would suggest osteomyelitis. Chest X-Ray 09/03/17 00:00 IMPRESSION: NO ACUTE RADIOGRAPHIC FINDING IN THE CHEST. RIGHT IJ VENOUS CATHETER TERMINATES WITHIN THE RIGHT ATRIUM. CONSIDER PULLING BACK 4 TO 5 CM. Guidance Fluoroscopy 09/17/17 00:00 IMPRESSION: SUCCESSFUL PLACEMENT OF A 5 FR DUAL LUMEN 31 CM PICC IN THE RIGHT BASILIC VEIN. Interventional Vascular Procedure 09/17/17 00:00 IMPRESSION: SUCCESSFUL PLACEMENT OF A 5 FR DUAL LUMEN 31 CM PICC IN THE RIGHT BASILIC VEIN. PICC Line Insertion 09/17/17 00:00 IMPRESSION: SUCCESSFUL PLACEMENT OF A 5 FR DUAL LUMEN 31 CM PICC IN THE RIGHT BASILIC VEIN. Assessment & Plan - Diagnosis (1) Wound of left upper extremity Plan: This does not exactly appear to be acutely infected. The differential includes vasculitis versus sarcoid. I am going to increase her prednisone to 60 mg a day. I have spoken to the general surgery service and hopefully they will obtain a punch biopsy of the area. 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 Qualified Code(s): Z89.611 - Acquired absence of right leg above knee; Z89.612 - Acquired absence of left leg above knee; Z89.612 - Acquired absence of left leg above knee; Z89.612 - Acquired absence of left leg above knee Is this a current diagnosis for this admission?: Yes (3) Abscess of left leg Is this a current diagnosis for this admission?: Yes (4) Allergic reaction caused by a drug Qualifiers: Encounter type: initial encounter Qualified Code(s): T78.40XA - Allergy, unspecified, initial encounter Is this a current diagnosis for this admission?: Yes - Time Time Spent with patient: 25-34 minutes - Inpatient Certification Based on my medical assessment, after consideration of the patient's comorbidities, presenting symptoms, or acuity I expect that the services needed warrant INPATIENT care.: Yes I certify that my determination is in accordance with my understanding of Medicare's requirements for reasonable and necessary INPATIENT services [42 CFR 412.3e].: Yes Medical Necessity: Other - Timing of disposition will be determined by the general surgery service. Thank you for the consult of this patient and we will continue to follow along with you.
[2017-09-23] MEDS ORDERED: GABAPENTIN 400 MG CAPSULE PO ONE (18:30)
[2017-09-23] MEDS: GABAPENTIN 400 MG CAPSULE PO SCH (21:29)
[2017-09-24] MEDS: OXYCODONE-ACETAMINOPHEN 5-325 MG TABLET PO PRN ×3 (03:46→16:47)
[2017-09-24] MEDS: FAMOTIDINE 20 MG TABLET PO SCH ×2 (06:04→17:24)
[2017-09-24] MEDS: GABAPENTIN 400 MG CAPSULE PO SCH ×3 (06:05→22:22)
[2017-09-24] MEDS: FERROUS SULFATE 325 MG TABLET PO SCH ×3 (08:37→16:46)
[2017-09-24] MEDS: PREDNISONE 20 MG TABLET PO SCH (09:51)
[2017-09-24] MEDS: ASPIRIN 81 MG TABLET, CHEWABLE PO SCH (09:52)
[2017-09-24] MEDS: MAGNESIUM OXIDE 400 MG TABLET PO SCH ×2 (09:53→17:24)
[2017-09-24] MEDS: HYDROCORTISONE 1% CREAM 28.35 GM TP SCH ×2 (13:08→22:21)
--- NOTE | 2017-09-24 16:37 | PDOC PROGRESS REPORT ---
Subjective Subjective:: The patient is an unfortunate 42-year-old -Mexican female. She was admitted to the surgical service after spending 2-1/2 weeks down in the emergency room. She was recently discharged from an outside facility [facility] and came to [place] to see her family. While she was here she started having lower extremity swelling and presented to the emergency room. While she was down there over the last 2 week her stumps develops ulcers that began draining purulent fluid. This necessitated admission and debridement. 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 She has been anemic and required blood transfusion. The patient was stable and signed off on by this service on September 06. The hospitalist service was reconsulted as the patient had developed a rash. 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 The patient stated that the last antibiotic she was on is what caused the rash. Her Zosyn this antibiotic was Zosyn and it was stopped on 09/04. The patient states that the rash started off as a small flesh -colored bumps and then progressed all over. She states that it was very itchy. It was felt that the patient was having a drug reaction. The physician who evaluated her did not feel that it was likely that she had Starkey-Ruddy syndrome. Her Solu-Medrol was discontinued and she was placed on prednisone. She was in the process of completing a long steroid taper. We once again signed off on the patient. Yesterday on 09/23/2017 we will reconsult it is the patient had developed a wound on her left arm as well as on her left anterior chest wall. The patient was seen by both myself as well as Dr. Washington yesterday. These wounds do not look acutely infected and it is felt that the patient may have an underlying vasculitis or even sarcoidosis. Yesterday I spoke to Dr. Gomez to see whether he could perform a punch biopsy of the lesion. Her prednisone was increased to 60 mg a day. Today when I saw the patient she states that the wounds are still quite painful but she states that they are somewhat improved after starting the steroids yesterday. She states that the surgeons have not yet performed a punch biopsy. Overall other than the pain in her that the wound is causing she has no complaints. She denies fever chills. No chest pain, shortness of breath or heart palpitations. No nausea, vomiting or diarrhea. No dysuria, frequency or hematuria. Reason For Visit: WOUND INFECTION Physical Exam Vital Signs: Temp Pulse Resp BP Pulse Ox 98.4 F 96 16 133/87 H 100 09/24/17 12:00 09/24/17 12:00 09/24/17 12:00 09/24/17 12:00 09/24/17 12:00 Intake & Output 09/23/17 09/24/17 09/25/17 06:59 06:59 06:59 Intake Total 1400 300 390 Output Total 1700 Balance -300 300 390 Weight 47.3 kg General appearance: PRESENT: no acute distress, well-developed, well-nourished Head exam: PRESENT: atraumatic, normocephalic Eye exam: PRESENT: conjunctiva pink, EOMI, PERRLA. ABSENT: scleral icterus Mouth exam: PRESENT: moist, tongue midline Respiratory exam: PRESENT: clear to auscultation rei. ABSENT: rales, rhonchi, wheezes Cardiovascular exam: PRESENT: RRR. ABSENT: diastolic murmur, rubs, systolic murmur GI/Abdominal exam: PRESENT: normal bowel sounds, soft. ABSENT: distended, guarding, mass, organolmegaly, rebound, tenderness Rectal exam: PRESENT: deferred Extremities exam: PRESENT: other - Both legs are surgically absent above the knee. I did not look at the stump sites. Neurological exam: PRESENT: alert, awake, oriented to person, oriented to place , oriented to time, oriented to situation, CN II-XII grossly intact. ABSENT: motor sensory deficit Psychiatric exam: PRESENT: appropriate affect, normal mood. ABSENT: homicidal ideation, suicidal ideation Skin exam: PRESENT: other - The patient has wound on her left upper arm. There is some erythema in the middle. It does not have any surrounding erythema. It does not look acutely infected. Patient has a smaller wound of similar appearance on the left anterior chest wall. Results Laboratory Results: 09/19/17 05:15 09/19/17 05:15 Impressions: Femur X-Ray 08/28/17 10:15 IMPRESSION: Relatively intact left mid leg amputation site. Findings as above. Surveillance followup radiographs may prove helpful to exclude developing osteomyelitis. Lower Extremity MRI 08/31/17 12:30 IMPRESSION: 1. Bilateral amputations with minimal reactive bone edema and regional soft tissue edema without drainable abscess. Doubt osteomyelitis, marrow signal changes may simply be related to overlying soft tissue infection and irritation. Surveillance followup radiographs to assess for progressive bone resorption recommended. Progressive bone lysis would suggest osteomyelitis. Chest X-Ray 09/03/17 00:00 IMPRESSION: NO ACUTE RADIOGRAPHIC FINDING IN THE CHEST. RIGHT IJ VENOUS CATHETER TERMINATES WITHIN THE RIGHT ATRIUM. CONSIDER PULLING BACK 4 TO 5 CM. Guidance Fluoroscopy 09/17/17 00:00 IMPRESSION: SUCCESSFUL PLACEMENT OF A 5 FR DUAL LUMEN 31 CM PICC IN THE RIGHT BASILIC VEIN. Interventional Vascular Procedure 09/17/17 00:00 IMPRESSION: SUCCESSFUL PLACEMENT OF A 5 FR DUAL LUMEN 31 CM PICC IN THE RIGHT BASILIC VEIN. PICC Line Insertion 09/17/17 00:00 IMPRESSION: SUCCESSFUL PLACEMENT OF A 5 FR DUAL LUMEN 31 CM PICC IN THE RIGHT BASILIC VEIN. Assessment & Plan - Diagnosis (1) Wound of left upper extremity Plan: This does not appear to be acutely infected. The differential includes vasculitis versus sarcoid. Her prednisone has been increased to 60 mg a day. I have spoken to the general surgery service and hopefully they will obtain a punch biopsy of the area in the near future. This area will have to be watched closely for signs of secondary infection. 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 Qualified Code(s): Z89.611 - Acquired absence of right leg above knee; Z89.612 - Acquired absence of left leg above knee; Z89.612 - Acquired absence of left leg above knee; Z89.612 - Acquired absence of left leg above knee Is this a current diagnosis for this admission?: Yes (3) Abscess of left leg Is this a current diagnosis for this admission?: Yes (4) Allergic reaction caused by a drug Qualifiers: Encounter type: initial encounter Qualified Code(s): T78.40XA - Allergy, unspecified, initial encounter Is this a current diagnosis for this admission?: Yes - Time Time Spent with patient: 15-24 minutes - Inpatient Certification Medical Necessity: Other - Inpatient hospitalization remains necessary. The patient is under the surgery service and they will ultimately determine her disposition. Thank you for the consult of this patient and we will continue to follow along with you for now.
--- NOTE | 2017-09-24 16:49 | PDOC PROGRESS REPORT ---
Subjective Progress Note for:: 09/24/17 Subjective:: Post revision of left AKA and amputation of left 4th finger distal phalanx Reason For Visit: WOUND INFECTION Physical Exam Vital Signs: Temp Pulse Resp BP Pulse Ox 98.4 F 96 16 133/87 H 100 09/24/17 12:00 09/24/17 12:00 09/24/17 12:00 09/24/17 12:00 09/24/17 12:00 Intake & Output 09/23/17 09/24/17 09/25/17 06:59 06:59 06:59 Intake Total 1400 300 390 Output Total 1700 Balance -300 300 390 Weight 47.3 kg Exam: Left AKA stump healing well as well as the left 4th finger amputation Wound rt AKA stump getting a lot smaller. Results Laboratory Results: 09/19/17 05:15 09/19/17 05:15 Impressions: Femur X-Ray 08/28/17 10:15 IMPRESSION: Relatively intact left mid leg amputation site. Findings as above. Surveillance followup radiographs may prove helpful to exclude developing osteomyelitis. Lower Extremity MRI 08/31/17 12:30 IMPRESSION: 1. Bilateral amputations with minimal reactive bone edema and regional soft tissue edema without drainable abscess. Doubt osteomyelitis, marrow signal changes may simply be related to overlying soft tissue infection and irritation. Surveillance followup radiographs to assess for progressive bone resorption recommended. Progressive bone lysis would suggest osteomyelitis. Chest X-Ray 09/03/17 00:00 IMPRESSION: NO ACUTE RADIOGRAPHIC FINDING IN THE CHEST. RIGHT IJ VENOUS CATHETER TERMINATES WITHIN THE RIGHT ATRIUM. CONSIDER PULLING BACK 4 TO 5 CM. Guidance Fluoroscopy 09/17/17 00:00 IMPRESSION: SUCCESSFUL PLACEMENT OF A 5 FR DUAL LUMEN 31 CM PICC IN THE RIGHT BASILIC VEIN. Interventional Vascular Procedure 09/17/17 00:00 IMPRESSION: SUCCESSFUL PLACEMENT OF A 5 FR DUAL LUMEN 31 CM PICC IN THE RIGHT BASILIC VEIN. PICC Line Insertion 09/17/17 00:00 IMPRESSION: SUCCESSFUL PLACEMENT OF A 5 FR DUAL LUMEN 31 CM PICC IN THE RIGHT BASILIC VEIN. Assessment & Plan - Time Time Spent with patient: 15-24 minutes - Plan Summary Plan Summary: Agree with recommendation by rehab for bilateral prosthesis Awaiting placement
[2017-09-25] MEDS: FAMOTIDINE 20 MG TABLET PO SCH ×2 (05:51→17:07)
[2017-09-25] MEDS: GABAPENTIN 400 MG CAPSULE PO SCH ×3 (05:51→22:34)
[2017-09-25 07:11] LABS: ABSOLUTE BASOPHILS # (AUTO) 0.1 10^3/uL (0.0-0.2); ABSOLUTE LYMPHOCYTES (AUTO) 2.1 10^3/uL (0.5-4.7); ABSOLUTE MONOCYTES (AUTO) 1.2 10^3/uL (0.1-1.4); ABSOLUTE NEUT (AUTO) 6.2 10^3/uL (1.7-8.2); BASOPHILS % (AUTO) 0.6 % (0-2); EOSINOPHILS % (AUTO) 0.4 % (0-6); HEMATOCRIT 33.5 % (36.0-47.0); HEMOGLOBIN 11.2 g/dL (12.0-15.5); MEAN CORPUSCULAR HEMOGLOBIN 27.3 pg (27.0-33.4); MEAN CORPUSCULAR HGB CONC 33.6 g/dL (32.0-36.0); MEAN CORPUSCULAR VOLUME 81 fl (80-97); MONOCYTES % (AUTO) 12.5 % (3-13); PLATELET COUNT 282 10^3/uL (150-450); RED BLOOD COUNT 4.12 10^6/uL (3.72-5.28); RED CELL DISTRIBUTION WIDTH 17.1 % (11.5-14.0); SEGMENTED NEUTROPHILS % (AUTO) 64.5 % (42-78); TOTAL CELLS COUNTED % (AUTO) 100 %; WHITE BLOOD COUNT 9.6 10^3/uL (4.0-10.5)
[2017-09-25 07:34] LABS: BLOOD UREA NITROGEN 26 mg/dL (7-20); CALCIUM 9.6 mg/dL (8.4-10.2); GLUCOSE 110 mg/dL (75-110); MAGNESIUM 1.8 mg/dL (1.6-2.3)
[2017-09-25 07:40] LABS: POTASSIUM 3.5 mmol/L (3.6-5.0)
[2017-09-25 07:47] LABS: CARBON DIOXIDE 21 mmol/L (22-30); CHLORIDE 103 mmol/L (98-107); SODIUM 142.5 mmol/L (137-145)
[2017-09-25 07:49] LABS: ANION GAP 19 (5-19)
--- NOTE | 2017-09-25 10:48 | PDOC PROGRESS REPORT ---
Subjective Progress Note for:: 09/25/17 Subjective:: Previous history up to 09/24/17 as documented by Tamika Reardon: The patient is an unfortunate 42-year-old -[place] female. She was admitted to the surgical service after spending 2-1/2 weeks down in the emergency room. She was recently discharged from an outside facility [facility] and came to [place] to see her family. While she was here she started having lower extremity swelling and presented to the emergency room. While she was down there over the last 2 week her stumps develops ulcers that began draining purulent fluid. This necessitated admission and debridement. 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 She has been anemic and required blood transfusion. The patient was stable and signed off on by this service on September 06. The hospitalist service was reconsulted as the patient had developed a rash. 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 The patient stated that the last antibiotic she was on is what caused the rash. Her Zosyn this antibiotic was Zosyn and it was stopped on 09/04. The patient states that the rash started off as a small flesh-colored bumps and then progressed all over. She states that it was very itchy. It was felt that the patient was having a drug reaction. The physician who evaluated her did not feel that it was likely that she had Starkey-Ruddy syndrome. Her Solu-Medrol was discontinued and she was placed on prednisone. She was in the process of completing a long steroid taper. We once again signed off on the patient. Yesterday on 09/23/2017 we will reconsult it is the patient had developed a wound on her left arm as well as on her left anterior chest wall. The patient was seen by both myself as well as Dr. Washington yesterday. These wounds do not look acutely infected and it is felt that the patient may have an underlying vasculitis or even sarcoidosis. Yesterday I spoke to Dr. Gomez to see whether he could perform a punch biopsy of the lesion. Her prednisone was increased to 60 mg a day. Today, the patient informed me that the lesions are less painful. She told me that the lesions are not similar to her previous lesions when she had Starkey Johnsons syndrome. The patient has been diagnosed previously with a vasculitis secondary to her underlying lupus. She does not currently follow with a teletype mechanic, but, if a referral is made she would be willing to see a teletype mechanic. Today, she states that the lesions have dried up since both the intravenous and oral corticosteroids have been started. She has not yet had a punch biopsy of these areas. She reports no other complaints today. Reason For Visit: WOUND INFECTION Physical Exam Vital Signs: Temp Pulse Resp BP Pulse Ox 97.9 F 111 H 16 136/76 H 100 09/25/17 08:00 09/25/17 08:00 09/25/17 08:00 09/25/17 08:00 09/25/17 08:00 Intake & Output 09/24/17 09/25/17 09/26/17 06:59 06:59 06:59 Intake Total 300 902 Output Total 1250 Balance 300 -348 Weight 47.3 kg Additional comments: The patient appears to be her stated age. Her cognition and mentation appear to be normal. Her facial appearance is normal with the exception of areas of hyperpigmentation. These are present all over her skin. The patient's lungs are clear to auscultation bilaterally. Her cardiac exam is regular without murmurs, gallops or rubs. The abdomen is soft and flat. Bowel sounds are present in all 4 quadrants. The patient is status post bilateral above-the- knee amputations. The rash on her chest and left upper extremity shows an area of ulceration. The skin is dry. Some of the skin is peeling off. There does not appear to be an underlying infection. The left hand demonstrates areas of amputation of the fourth finger. Also, the patient is showing signs of necrosis at the fingertips and nailbeds. The skin again has areas of hyperpigmentation throughout. Results Laboratory Results: 09/25/17 06:46 09/25/17 06:46 09/25/17 09/25/17 06:46 06:46 WBC 9.6 RBC 4.12 Hgb 11.2 L Hct 33.5 L MCV 81 MCH 27.3 MCHC 33.6 RDW 17.1 H Plt Count 282 Seg Neutrophils % 64.5 Lymphocytes % 22.0 Monocytes % 12.5 Eosinophils % 0.4 Basophils % 0.6 Absolute Neutrophils 6.2 Absolute Lymphocytes 2.1 Absolute Monocytes 1.2 Absolute Eosinophils 0.0 Absolute Basophils 0.1 Sodium 142.5 Potassium 3.5 L Chloride 103 Carbon Dioxide 21 L Anion Gap 19 BUN 26 H Creatinine 0.52 Est GFR ( Amer) > 60 Est GFR (Non-Af Amer) > 60 Glucose 110 Calcium 9.6 Magnesium 1.8 Impressions: Femur X-Ray 08/28/17 10:15 IMPRESSION: Relatively intact left mid leg amputation site. Findings as above. Surveillance followup radiographs may prove helpful to exclude developing osteomyelitis. Lower Extremity MRI 08/31/17 12:30 IMPRESSION: 1. Bilateral amputations with minimal reactive bone edema and regional soft tissue edema without drainable abscess. Doubt osteomyelitis, marrow signal changes may simply be related to overlying soft tissue infection and irritation. Surveillance followup radiographs to assess for progressive bone resorption recommended. Progressive bone lysis would suggest osteomyelitis. Chest X-Ray 09/03/17 00:00 IMPRESSION: NO ACUTE RADIOGRAPHIC FINDING IN THE CHEST. RIGHT IJ VENOUS CATHETER TERMINATES WITHIN THE RIGHT ATRIUM. CONSIDER PULLING BACK 4 TO 5 CM. Guidance Fluoroscopy 09/17/17 00:00 IMPRESSION: SUCCESSFUL PLACEMENT OF A 5 FR DUAL LUMEN 31 CM PICC IN THE RIGHT BASILIC VEIN. Interventional Vascular Procedure 09/17/17 00:00 IMPRESSION: SUCCESSFUL PLACEMENT OF A 5 FR DUAL LUMEN 31 CM PICC IN THE RIGHT BASILIC VEIN. PICC Line Insertion 09/17/17 00:00 IMPRESSION: SUCCESSFUL PLACEMENT OF A 5 FR DUAL LUMEN 31 CM PICC IN THE RIGHT BASILIC VEIN. Assessment & Plan - Diagnosis (1) Wound of left upper extremity Is this a current diagnosis for this admission?: Yes (2) Vasculitis Is this a current diagnosis for this admission?: Yes (3) SLE (systemic lupus erythematosus) Qualifiers: Systemic lupus erythematosus type: unspecified Systemic lupus erythematosus organ involvement: unspecified Qualified Code(s): M32.9 - Systemic lupus erythematosus, unspecified Is this a current diagnosis for this admission?: Yes (4) Starkey-Ruddy syndrome Is this a current diagnosis for this admission?: No - Time Time Spent with patient: 15-24 minutes - Plan Summary Plan Summary: The patient should continue prednisone. This will need to be tapered at discharge. I would strongly recommend that the patient be an panel with a primary care provider and teletype mechanic at the time of discharge.
[2017-09-25] MEDS: FERROUS SULFATE 325 MG TABLET PO SCH ×3 (10:59→17:07)
[2017-09-25] MEDS: PREDNISONE 20 MG TABLET PO SCH (11:00)
[2017-09-25] MEDS: MAGNESIUM OXIDE 400 MG TABLET PO SCH ×2 (11:00→17:07)
[2017-09-25] MEDS: ASPIRIN 81 MG TABLET, CHEWABLE PO SCH (11:00)
[2017-09-25] MEDS: HYDROCORTISONE 1% CREAM 28.35 GM TP SCH ×2 (11:01→22:40)
[2017-09-25] MEDS ORDERED: POTASSIUM CHLORIDE 10 MEQ TABLET.SA PO ONE (12:30)
[2017-09-25] MEDS: OXYCODONE-ACETAMINOPHEN 5-325 MG TABLET PO PRN (13:30)
[2017-09-25] MEDS ORDERED: FLUOXETINE HCL 20 MG CAPSULE PO ONE (16:00)
--- NOTE | 2017-09-25 18:48 | PDOC PROGRESS REPORT ---
Subjective Progress Note for:: 09/25/17 Subjective:: blisters on both hands Reason For Visit: WOUND INFECTION Physical Exam Vital Signs: Temp Pulse Resp BP Pulse Ox 97.8 F 98 16 140/98 H 100 09/25/17 16:00 09/25/17 16:00 09/25/17 16:00 09/25/17 16:00 09/25/17 16:00 Intake & Output 09/24/17 09/25/17 09/26/17 06:59 06:59 06:59 Intake Total 300 902 Output Total 1250 Balance 300 -348 Weight 47.3 kg Exam: blisters on both hands appear to be drying up.less pains Was started back on steroids Lesions on the chest and left arm are not tender. I'll try to do punch biopsy tomorrow. Results Laboratory Results: 09/25/17 06:46 09/25/17 06:46 09/25/17 09/25/17 06:46 06:46 WBC 9.6 RBC 4.12 Hgb 11.2 L Hct 33.5 L MCV 81 MCH 27.3 MCHC 33.6 RDW 17.1 H Plt Count 282 Seg Neutrophils % 64.5 Lymphocytes % 22.0 Monocytes % 12.5 Eosinophils % 0.4 Basophils % 0.6 Absolute Neutrophils 6.2 Absolute Lymphocytes 2.1 Absolute Monocytes 1.2 Absolute Eosinophils 0.0 Absolute Basophils 0.1 Sodium 142.5 Potassium 3.5 L Chloride 103 Carbon Dioxide 21 L Anion Gap 19 BUN 26 H Creatinine 0.52 Est GFR ( Amer) > 60 Est GFR (Non-Af Amer) > 60 Glucose 110 Calcium 9.6 Magnesium 1.8 Impressions: Femur X-Ray 08/28/17 10:15 IMPRESSION: Relatively intact left mid leg amputation site. Findings as above. Surveillance followup radiographs may prove helpful to exclude developing osteomyelitis. Lower Extremity MRI 08/31/17 12:30 IMPRESSION: 1. Bilateral amputations with minimal reactive bone edema and regional soft tissue edema without drainable abscess. Doubt osteomyelitis, marrow signal changes may simply be related to overlying soft tissue infection and irritation. Surveillance followup radiographs to assess for progressive bone resorption recommended. Progressive bone lysis would suggest osteomyelitis. Chest X-Ray 09/03/17 00:00 IMPRESSION: NO ACUTE RADIOGRAPHIC FINDING IN THE CHEST. RIGHT IJ VENOUS CATHETER TERMINATES WITHIN THE RIGHT ATRIUM. CONSIDER PULLING BACK 4 TO 5 CM. Guidance Fluoroscopy 09/17/17 00:00 IMPRESSION: SUCCESSFUL PLACEMENT OF A 5 FR DUAL LUMEN 31 CM PICC IN THE RIGHT BASILIC VEIN. Interventional Vascular Procedure 09/17/17 00:00 IMPRESSION: SUCCESSFUL PLACEMENT OF A 5 FR DUAL LUMEN 31 CM PICC IN THE RIGHT BASILIC VEIN. PICC Line Insertion 09/17/17 00:00 IMPRESSION: SUCCESSFUL PLACEMENT OF A 5 FR DUAL LUMEN 31 CM PICC IN THE RIGHT BASILIC VEIN. Assessment & Plan - Plan Summary Plan Summary: Wrote prescription for bilateral Prosthesis. Form also signed. For possible punch biopsy of left arm lesion to r/o sarcoidosis, tomorrow.
[2017-09-26] MEDS: FAMOTIDINE 20 MG TABLET PO SCH ×2 (06:06→18:02)
[2017-09-26] MEDS: GABAPENTIN 400 MG CAPSULE PO SCH ×3 (06:06→21:56)
[2017-09-26] MEDS: FERROUS SULFATE 325 MG TABLET PO SCH ×3 (08:55→18:02)
[2017-09-26] MEDS: PREDNISONE 20 MG TABLET PO SCH (09:37)
[2017-09-26] MEDS: FLUOXETINE HCL 20 MG CAPSULE PO SCH (09:37)
[2017-09-26] MEDS: MAGNESIUM OXIDE 400 MG TABLET PO SCH ×2 (09:37→18:02)
[2017-09-26] MEDS: HYDROCORTISONE 1% CREAM 28.35 GM TP SCH ×2 (09:38→21:56)
[2017-09-26] MEDS: ASPIRIN 81 MG TABLET, CHEWABLE PO SCH (09:38)
--- NOTE | 2017-09-26 09:54 | PDOC PROGRESS REPORT ---
Subjective Progress Note for:: 09/26/17 Subjective:: Previous history up to 09/24/17 as documented by Tamika Reardon: The patient is an unfortunate 42-year-old -[place] female. She was admitted to the surgical service after spending 2-1/2 weeks down in the emergency room. She was recently discharged from an outside facility [facility] and came to [place] to see her family. While she was here she started having lower extremity swelling and presented to the emergency room. While she was down there over the last 2 week her stumps develops ulcers that began draining purulent fluid. This necessitated admission and debridement. 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 She has been anemic and required blood transfusion. The patient was stable and signed off on by this service on September 06. The hospitalist service was reconsulted as the patient had developed a rash. 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 The patient stated that the last antibiotic she was on is what caused the rash. Her Zosyn this antibiotic was Zosyn and it was stopped on 09/04. The patient states that the rash started off as a small flesh-colored bumps and then progressed all over. She states that it was very itchy. It was felt that the patient was having a drug reaction. The physician who evaluated her did not feel that it was likely that she had Starkey-Ruddy syndrome. Her Solu-Medrol was discontinued and she was placed on prednisone. She was in the process of completing a long steroid taper. We once again signed off on the patient. Yesterday on 09/23/2017 we will reconsult it is the patient had developed a wound on her left arm as well as on her left anterior chest wall. The patient was seen by both myself as well as Dr. Washington yesterday. These wounds do not look acutely infected and it is felt that the patient may have an underlying vasculitis or even sarcoidosis. Yesterday I spoke to Dr. Gomez to see whether he could perform a punch biopsy of the lesion. Her prednisone was increased to 60 mg a day. 09/26/2017: The patient is without any complaints today. The lesions are not itchy and they are less painful. Reason For Visit: WOUND INFECTION Physical Exam Vital Signs: Temp Pulse Resp BP Pulse Ox 98.2 F 80 16 123/96 H 100 09/26/17 08:55 09/26/17 08:55 09/26/17 08:55 09/26/17 08:55 09/26/17 08:55 Intake & Output 09/25/17 09/26/17 09/27/17 06:59 06:59 06:59 Intake Total 902 1000 Output Total 1250 Balance -348 1000 Additional comments: The areas on the left upper extremity and left anterior chest do appear to be drier unloader. There does not appear to be a superinfection. There are no new lesions. The exam was otherwise deferred today. Results Laboratory Results: 09/25/17 06:46 09/25/17 06:46 Impressions: Femur X-Ray 08/28/17 10:15 IMPRESSION: Relatively intact left mid leg amputation site. Findings as above. Surveillance followup radiographs may prove helpful to exclude developing osteomyelitis. Lower Extremity MRI 08/31/17 12:30 IMPRESSION: 1. Bilateral amputations with minimal reactive bone edema and regional soft tissue edema without drainable abscess. Doubt osteomyelitis, marrow signal changes may simply be related to overlying soft tissue infection and irritation. Surveillance followup radiographs to assess for progressive bone resorption recommended. Progressive bone lysis would suggest osteomyelitis. Chest X-Ray 09/03/17 00:00 IMPRESSION: NO ACUTE RADIOGRAPHIC FINDING IN THE CHEST. RIGHT IJ VENOUS CATHETER TERMINATES WITHIN THE RIGHT ATRIUM. CONSIDER PULLING BACK 4 TO 5 CM. Guidance Fluoroscopy 09/17/17 00:00 IMPRESSION: SUCCESSFUL PLACEMENT OF A 5 FR DUAL LUMEN 31 CM PICC IN THE RIGHT BASILIC VEIN. Interventional Vascular Procedure 09/17/17 00:00 IMPRESSION: SUCCESSFUL PLACEMENT OF A 5 FR DUAL LUMEN 31 CM PICC IN THE RIGHT BASILIC VEIN. PICC Line Insertion 09/17/17 00:00 IMPRESSION: SUCCESSFUL PLACEMENT OF A 5 FR DUAL LUMEN 31 CM PICC IN THE RIGHT BASILIC VEIN. Assessment & Plan - Diagnosis (1) Wound of left upper extremity Is this a current diagnosis for this admission?: Yes (2) Vasculitis Is this a current diagnosis for this admission?: Yes (3) SLE (systemic lupus erythematosus) Qualifiers: Systemic lupus erythematosus type: unspecified Systemic lupus erythematosus organ involvement: unspecified Qualified Code(s): M32.9 - Systemic lupus erythematosus, unspecified Is this a current diagnosis for this admission?: Yes (4) Starkey-Ruddy syndrome Is this a current diagnosis for this admission?: No - Time Time Spent with patient: Less than 15 minutes - Plan Summary Plan Summary: At this point in time we are presuming that the rash is secondary to vasculitis. The differential diagnosis does include rash secondary to sarcoidosis. Dr. Weller is planning for a punch biopsy tomorrow. I would like to start weaning corticosteroids. When I asked the patient the dose of prednisone that she normally takes she cannot remember. Therefore, I would recommend that we wean her down to a dose of 5 mg per day. Again, the patient should follow-up with a jumpbasting facing baster after discharge.
[2017-09-26] MEDS: KETOROLAC TROMETHAMINE INJ/PF 30 MG/1 ML SDV IV PRN (15:59)
--- NOTE | 2017-09-26 20:38 | PDOC PROGRESS REPORT ---
Subjective Progress Note for:: 09/26/17 Subjective:: less pains on the hand and wounds on the chest and left upper arm Reason For Visit: WOUND INFECTION Physical Exam Vital Signs: Temp Pulse Resp BP Pulse Ox 98.3 F 105 H 18 135/81 H 99 09/26/17 16:07 09/26/17 16:07 09/26/17 16:07 09/26/17 16:07 09/26/17 16:07 Intake & Output 09/25/17 09/26/17 09/27/17 06:59 06:59 06:59 Intake Total 902 1000 1260 Output Total 1250 Balance -348 1000 1260 Exam: All lesions are dry. Will do punch biopsy tomorrow of left arm lesion. Results Laboratory Results: 09/25/17 06:46 09/25/17 06:46 Impressions: Femur X-Ray 08/28/17 10:15 IMPRESSION: Relatively intact left mid leg amputation site. Findings as above. Surveillance followup radiographs may prove helpful to exclude developing osteomyelitis. Lower Extremity MRI 08/31/17 12:30 IMPRESSION: 1. Bilateral amputations with minimal reactive bone edema and regional soft tissue edema without drainable abscess. Doubt osteomyelitis, marrow signal changes may simply be related to overlying soft tissue infection and irritation. Surveillance followup radiographs to assess for progressive bone resorption recommended. Progressive bone lysis would suggest osteomyelitis. Chest X-Ray 09/03/17 00:00 IMPRESSION: NO ACUTE RADIOGRAPHIC FINDING IN THE CHEST. RIGHT IJ VENOUS CATHETER TERMINATES WITHIN THE RIGHT ATRIUM. CONSIDER PULLING BACK 4 TO 5 CM. Guidance Fluoroscopy 09/17/17 00:00 IMPRESSION: SUCCESSFUL PLACEMENT OF A 5 FR DUAL LUMEN 31 CM PICC IN THE RIGHT BASILIC VEIN. Interventional Vascular Procedure 09/17/17 00:00 IMPRESSION: SUCCESSFUL PLACEMENT OF A 5 FR DUAL LUMEN 31 CM PICC IN THE RIGHT BASILIC VEIN. PICC Line Insertion 09/17/17 00:00 IMPRESSION: SUCCESSFUL PLACEMENT OF A 5 FR DUAL LUMEN 31 CM PICC IN THE RIGHT BASILIC VEIN. Assessment & Plan - Time Time Spent with patient: 15-24 minutes - Plan Summary Plan Summary: Steroids being tapered. Will do punch biopsy left arm lesion tomorrow or Wednesday.
[2017-09-26] MEDS ORDERED: MORPHINE SULFATE 10 MG/ML INJ IV ONE ×2 (22:00→23:45)
[2017-09-26] MEDS ORDERED: LIDOCAINE 1% INJ-PF (10 MG/ML) 30 ML SDV ONE (22:27)
[2017-09-26] MEDS ORDERED: MORPHINE SULFATE 10 MG/ML INJ ONE (22:50)
[2017-09-26] MEDS ORDERED: LIDOCAINE 1% INJ-PF (10 MG/ML) 30 ML SDV INJ SCH (23:30)
[2017-09-27] MEDS: KETOROLAC TROMETHAMINE INJ/PF 30 MG/1 ML SDV IV PRN (05:40)
[2017-09-27] MEDS: FAMOTIDINE 20 MG TABLET PO SCH ×2 (05:40→17:58)
[2017-09-27] MEDS: GABAPENTIN 400 MG CAPSULE PO SCH ×3 (05:40→21:33)
[2017-09-27 07:22] LABS: ABSOLUTE LYMPHOCYTES (AUTO) 2.4 10^3/uL (0.5-4.7); ABSOLUTE MONOCYTES (AUTO) 0.9 10^3/uL (0.1-1.4); BASOPHILS % (AUTO) 0.4 % (0-2); EOSINOPHILS % (AUTO) 0.2 % (0-6); HEMATOCRIT 30.7 % (36.0-47.0); LYMPHOCYTES % (AUTO) 21.3 % (13-45); MEAN CORPUSCULAR HEMOGLOBIN 26.4 pg (27.0-33.4); MEAN CORPUSCULAR HGB CONC 32.5 g/dL (32.0-36.0); MEAN CORPUSCULAR VOLUME 81 fl (80-97); MONOCYTES % (AUTO) 8.1 % (3-13); PLATELET COUNT 241 10^3/uL (150-450); RED BLOOD COUNT 3.78 10^6/uL (3.72-5.28); RED CELL DISTRIBUTION WIDTH 17.4 % (11.5-14.0); TOTAL CELLS COUNTED % (AUTO) 100 %; WHITE BLOOD COUNT 11.4 10^3/uL (4.0-10.5)
[2017-09-27 08:03] LABS: ANION GAP 16 (5-19); BLOOD UREA NITROGEN 38 mg/dL (7-20); CALCIUM 9.1 mg/dL (8.4-10.2); CARBON DIOXIDE 22 mmol/L (22-30); CHLORIDE 100 mmol/L (98-107); GLUCOSE 96 mg/dL (75-110); MAGNESIUM 1.8 mg/dL (1.6-2.3); PHOSPHORUS 4.9 mg/dL (2.5-4.5); POTASSIUM 3.6 mmol/L (3.6-5.0); SODIUM 137.6 mmol/L (137-145)
[2017-09-27] MEDS: FERROUS SULFATE 325 MG TABLET PO SCH ×3 (09:00→17:57)
[2017-09-27] MEDS ORDERED: MORPHINE SULFATE 10 MG/ML INJ IV ONE (09:00)
--- NOTE | 2017-09-27 09:27 | PDOC PROGRESS REPORT ---
Subjective Progress Note for:: 09/27/17 Reason For Visit: WOUND INFECTION Complaining pain left shoulder site of skin biopsy Physical Exam Vital Signs: Temp Pulse Resp BP Pulse Ox 98.1 F 87 16 139/86 H 100 09/27/17 05:10 09/27/17 05:10 09/27/17 05:10 09/27/17 05:10 09/27/17 05:10 Intake & Output 09/26/17 09/27/17 09/28/17 06:59 06:59 06:59 Intake Total 1000 2220 Balance 1000 2220 General appearance: PRESENT: mild distress Musculoskeletal exam: PRESENT: other - Left shoulder upper arm area dressing intact, dry. Left AKA stump with residual sutures; wound healed Right AKA stump with eschar. Results Laboratory Results: 09/27/17 06:20 09/27/17 06:20 09/27/17 09/27/17 06:20 06:20 WBC 11.4 H RBC 3.78 Hgb 10.0 L Hct 30.7 L MCV 81 MCH 26.4 L MCHC 32.5 RDW 17.4 H Plt Count 241 Seg Neutrophils % 70.0 Lymphocytes % 21.3 Monocytes % 8.1 Eosinophils % 0.2 Basophils % 0.4 Absolute Neutrophils 8.0 Absolute Lymphocytes 2.4 Absolute Monocytes 0.9 Absolute Eosinophils 0.0 Absolute Basophils 0.0 Sodium 137.6 Potassium 3.6 Chloride 100 Carbon Dioxide 22 Anion Gap 16 BUN 38 H Creatinine 0.73 Est GFR ( Amer) > 60 Est GFR (Non-Af Amer) > 60 Glucose 96 Calcium 9.1 Phosphorus 4.9 H Magnesium 1.8 Impressions: Femur X-Ray 08/28/17 10:15 IMPRESSION: Relatively intact left mid leg amputation site. Findings as above. Surveillance followup radiographs may prove helpful to exclude developing osteomyelitis. Lower Extremity MRI 08/31/17 12:30 IMPRESSION: 1. Bilateral amputations with minimal reactive bone edema and regional soft tissue edema without drainable abscess. Doubt osteomyelitis, marrow signal changes may simply be related to overlying soft tissue infection and irritation. Surveillance followup radiographs to assess for progressive bone resorption recommended. Progressive bone lysis would suggest osteomyelitis. Chest X-Ray 09/03/17 00:00 IMPRESSION: NO ACUTE RADIOGRAPHIC FINDING IN THE CHEST. RIGHT IJ VENOUS CATHETER TERMINATES WITHIN THE RIGHT ATRIUM. CONSIDER PULLING BACK 4 TO 5 CM. Guidance Fluoroscopy 09/17/17 00:00 IMPRESSION: SUCCESSFUL PLACEMENT OF A 5 FR DUAL LUMEN 31 CM PICC IN THE RIGHT BASILIC VEIN. Interventional Vascular Procedure 09/17/17 00:00 IMPRESSION: SUCCESSFUL PLACEMENT OF A 5 FR DUAL LUMEN 31 CM PICC IN THE RIGHT BASILIC VEIN. PICC Line Insertion 09/17/17 00:00 IMPRESSION: SUCCESSFUL PLACEMENT OF A 5 FR DUAL LUMEN 31 CM PICC IN THE RIGHT BASILIC VEIN. Assessment & Plan - Diagnosis (1) Abscess of left leg Is this a current diagnosis for this admission?: Yes (2) Effusion, left knee Is this a current diagnosis for this admission?: Yes (3) Osteomyelitis of right leg Is this a current diagnosis for this admission?: Yes Plan: Patient with healed [id number] amputation; status post skin biopsy left shoulder. Plan: 1. We will give patient 1 dose of morphine this morning 2. We will discontinue all left AKA stitches. 3. We will assess need for PICC line and discontinue it
--- NOTE | 2017-09-27 10:18 | PDOC PROGRESS REPORT ---
Subjective Progress Note for:: 09/27/17 Subjective:: Previous history up to 09/24/17 as documented by Tamika Reardon: The patient is an unfortunate 42-year-old -[place] female. She was admitted to the surgical service after spending 2-1/2 weeks down in the emergency room. She was recently discharged from an outside facility [facility] and came to [place] to see her family. While she was here she started having lower extremity swelling and presented to the emergency room. While she was down there over the last 2 week her stumps develops ulcers that began draining purulent fluid. This necessitated admission and debridement. 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 She has been anemic and required blood transfusion. The patient was stable and signed off on by this service on September 06. The hospitalist service was reconsulted as the patient had developed a rash. 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 The patient stated that the last antibiotic she was on is what caused the rash. Her Zosyn this antibiotic was Zosyn and it was stopped on 09/04. The patient states that the rash started off as a small flesh-colored bumps and then progressed all over. She states that it was very itchy. It was felt that the patient was having a drug reaction. The physician who evaluated her did not feel that it was likely that she had Starkey-Ruddy syndrome. Her Solu-Medrol was discontinued and she was placed on prednisone. She was in the process of completing a long steroid taper. We once again signed off on the patient. Yesterday on 09/23/2017 we will reconsult it is the patient had developed a wound on her left arm as well as on her left anterior chest wall. The patient was seen by both myself as well as Dr. Washington yesterday. These wounds do not look acutely infected and it is felt that the patient may have an underlying vasculitis or even sarcoidosis. Yesterday I spoke to Dr. Gomez to see whether he could perform a punch biopsy of the lesion. Her prednisone was increased to 60 mg a day. Over the weekend the patient was doing well. Yesterday, she started to develop severe pain after the punch biopsy. Today, she has been asking for pain medication. In particular, she wants the pain medication intravenously. I told her that we are planning on discharging the patient soon and it would not be appropriate to continue IV medications. I told her that I would look into her pain medications. She states that the Toradol is not working. I have written for oral oxycodone only for very severe pain to use as needed. Reason For Visit: WOUND INFECTION Physical Exam Vital Signs: Temp Pulse Resp BP Pulse Ox 98.1 F 87 16 139/86 H 100 09/27/17 05:10 09/27/17 05:10 09/27/17 05:10 09/27/17 05:10 09/27/17 05:10 Intake & Output 09/26/17 09/27/17 09/28/17 06:59 06:59 06:59 Intake Total 1000 2220 Balance 1000 2220 Additional comments: My exam today is limited to the patient's rash. She does have a dry scaly rash over the left anterior chest. This appears to be regressing. The lesion on the left arm has a dry bandage over it. It appears that some of the new skin cells have been removed with a dry bandage, but otherwise on the lesion does not appear different than yesterday. Results Laboratory Results: 09/27/17 06:20 09/27/17 06:20 09/27/17 09/27/17 06:20 06:20 WBC 11.4 H RBC 3.78 Hgb 10.0 L Hct 30.7 L MCV 81 MCH 26.4 L MCHC 32.5 RDW 17.4 H Plt Count 241 Seg Neutrophils % 70.0 Lymphocytes % 21.3 Monocytes % 8.1 Eosinophils % 0.2 Basophils % 0.4 Absolute Neutrophils 8.0 Absolute Lymphocytes 2.4 Absolute Monocytes 0.9 Absolute Eosinophils 0.0 Absolute Basophils 0.0 Sodium 137.6 Potassium 3.6 Chloride 100 Carbon Dioxide 22 Anion Gap 16 BUN 38 H Creatinine 0.73 Est GFR ( Amer) > 60 Est GFR (Non-Af Amer) > 60 Glucose 96 Calcium 9.1 Phosphorus 4.9 H Magnesium 1.8 Impressions: Femur X-Ray 08/28/17 10:15 IMPRESSION: Relatively intact left mid leg amputation site. Findings as above. Surveillance followup radiographs may prove helpful to exclude developing osteomyelitis. Lower Extremity MRI 08/31/17 12:30 IMPRESSION: 1. Bilateral amputations with minimal reactive bone edema and regional soft tissue edema without drainable abscess. Doubt osteomyelitis, marrow signal changes may simply be related to overlying soft tissue infection and irritation. Surveillance followup radiographs to assess for progressive bone resorption recommended. Progressive bone lysis would suggest osteomyelitis. Chest X-Ray 09/03/17 00:00 IMPRESSION: NO ACUTE RADIOGRAPHIC FINDING IN THE CHEST. RIGHT IJ VENOUS CATHETER TERMINATES WITHIN THE RIGHT ATRIUM. CONSIDER PULLING BACK 4 TO 5 CM. Guidance Fluoroscopy 09/17/17 00:00 IMPRESSION: SUCCESSFUL PLACEMENT OF A 5 FR DUAL LUMEN 31 CM PICC IN THE RIGHT BASILIC VEIN. Interventional Vascular Procedure 09/17/17 00:00 IMPRESSION: SUCCESSFUL PLACEMENT OF A 5 FR DUAL LUMEN 31 CM PICC IN THE RIGHT BASILIC VEIN. PICC Line Insertion 09/17/17 00:00 IMPRESSION: SUCCESSFUL PLACEMENT OF A 5 FR DUAL LUMEN 31 CM PICC IN THE RIGHT BASILIC VEIN. Assessment & Plan - Diagnosis (1) Wound of left upper extremity Is this a current diagnosis for this admission?: Yes (2) Vasculitis Is this a current diagnosis for this admission?: Yes (3) SLE (systemic lupus erythematosus) Qualifiers: Systemic lupus erythematosus type: unspecified Systemic lupus erythematosus organ involvement: unspecified Qualified Code(s): M32.9 - Systemic lupus erythematosus, unspecified Is this a current diagnosis for this admission?: Yes (4) Starkey-Ruddy syndrome Is this a current diagnosis for this admission?: No - Time Time Spent with patient: 15-24 minutes - Plan Summary Plan Summary: [facility] physicians are following the patient for the rash that she developed in the left anterior chest and left upper forearm. I suspect that this is secondary to vasculitis. A punch biopsy was performed yesterday by Dr. Weller. We will need to follow-up on these results. Since beginning prednisone the patient's rash appears improved. It is not itchy but it is severely painful. I did start oxycodone today. If surgery feels that this is inappropriate it may be discontinued. In regards to the prednisone she was started on 60 mg last week. Yesterday, I decreased the dose to 40 mg orally once per day. I would recommend decreasing this by 10 mg per day each week. After the patient is on 10 mg I would decrease this down to 5 mg per day 7 days later and continue 5 mg per day. She normally takes low-dose prednisone for her lupus. I would also recommend that she follow-up with a flash welder. Per my discussion with surgery we will discontinue the PICC line today. While she is in the hospital I would check labs once a week. She does have an elevated phosphorus level. I would also try to keep an eye on her renal function since she has been receiving a lot of Toradol.
[2017-09-27] MEDS: ASPIRIN 81 MG TABLET, CHEWABLE PO SCH (11:24)
[2017-09-27] MEDS: OXYCODONE HCL IR 5 MG TABLET PO PRN ×2 (11:24→17:58)
[2017-09-27] MEDS: MAGNESIUM OXIDE 400 MG TABLET PO SCH ×2 (11:24→17:58)
[2017-09-27] MEDS: PREDNISONE 20 MG TABLET PO SCH (11:25)
[2017-09-27] MEDS: FLUOXETINE HCL 20 MG CAPSULE PO SCH (11:26)
[2017-09-28] MEDS: HYDROCORTISONE 1% CREAM 28.35 GM TP SCH ×3 (00:20→22:52)
[2017-09-28] MEDS: OXYCODONE HCL IR 5 MG TABLET PO PRN ×3 (00:23→19:49)
[2017-09-28] MEDS: GABAPENTIN 400 MG CAPSULE PO SCH ×3 (06:19→22:46)
[2017-09-28] MEDS: FAMOTIDINE 20 MG TABLET PO SCH ×2 (06:19→20:19)
[2017-09-28] MEDS: FERROUS SULFATE 325 MG TABLET PO SCH ×3 (07:52→16:24)
[2017-09-28] MEDS: ASPIRIN 81 MG TABLET, CHEWABLE PO SCH (09:24)
[2017-09-28] MEDS: MAGNESIUM OXIDE 400 MG TABLET PO SCH ×2 (09:24→18:10)
[2017-09-28] MEDS: PREDNISONE 20 MG TABLET PO SCH (09:25)
[2017-09-28] MEDS: FLUOXETINE HCL 20 MG CAPSULE PO SCH (09:25)
--- NOTE | 2017-09-28 12:59 | PDOC PROGRESS REPORT ---
Subjective Progress Note for:: 09/28/17 Subjective:: less pains AKA stumps and left arm biopsy site Reason For Visit: WOUND INFECTION Physical Exam Vital Signs: Temp Pulse Resp BP Pulse Ox 97.4 F 78 20 125/82 100 09/28/17 04:00 09/28/17 04:00 09/28/17 04:00 09/28/17 04:00 09/28/17 04:00 Intake & Output 09/27/17 09/28/17 09/29/17 06:59 06:59 06:59 Intake Total 2220 1300 Output Total 700 Balance 2220 600 Exam: All wounds are dry. Both AKA stumps are clean and dry Biopsy site left arm is dry. Left arm and chest wound lesions are dry Results Laboratory Results: 09/27/17 06:20 09/27/17 06:20 Impressions: Femur X-Ray 08/28/17 10:15 IMPRESSION: Relatively intact left mid leg amputation site. Findings as above. Surveillance followup radiographs may prove helpful to exclude developing osteomyelitis. Lower Extremity MRI 08/31/17 12:30 IMPRESSION: 1. Bilateral amputations with minimal reactive bone edema and regional soft tissue edema without drainable abscess. Doubt osteomyelitis, marrow signal changes may simply be related to overlying soft tissue infection and irritation. Surveillance followup radiographs to assess for progressive bone resorption recommended. Progressive bone lysis would suggest osteomyelitis. Chest X-Ray 09/03/17 00:00 IMPRESSION: NO ACUTE RADIOGRAPHIC FINDING IN THE CHEST. RIGHT IJ VENOUS CATHETER TERMINATES WITHIN THE RIGHT ATRIUM. CONSIDER PULLING BACK 4 TO 5 CM. Guidance Fluoroscopy 09/17/17 00:00 IMPRESSION: SUCCESSFUL PLACEMENT OF A 5 FR DUAL LUMEN 31 CM PICC IN THE RIGHT BASILIC VEIN. Interventional Vascular Procedure 09/17/17 00:00 IMPRESSION: SUCCESSFUL PLACEMENT OF A 5 FR DUAL LUMEN 31 CM PICC IN THE RIGHT BASILIC VEIN. PICC Line Insertion 09/17/17 00:00 IMPRESSION: SUCCESSFUL PLACEMENT OF A 5 FR DUAL LUMEN 31 CM PICC IN THE RIGHT BASILIC VEIN. Assessment & Plan - Time Time Spent with patient: 15-24 minutes - Plan Summary Plan Summary: Await placement and result of punched biopsy
--- NOTE | 2017-09-28 18:15 | PDOC PROGRESS REPORT ---
Subjective Progress Note for:: 09/28/17 Subjective:: 42-year-old -[place] female with past medical history of Lupus complicated by severe peripheral vascular disease requiring bilateral AKA Hypertension Chronic kidney disease She was admitted to the hospital on August 31 with bilateral lower extremity stump swelling and draining purulent fluid with development of ulcers. Debridement was performed in the OR twice. 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 The patient has been anemic and was given blood transfusions. The hospitalist service was following and had signed off on September 06. They were reconsulted since the patient developed a rash. This was felt to be secondary to Zosyn and it was stopped on September 04. There was some concern for possible Starkey-Ruddy syndrome which was ruled out by the physician at the time. She was initially on Solu-Medrol which was switched to prednisone. On September 23 the hospitalist service was reconsulted for a wound in the left arm as well as her left anterior chest wall which did not appear to be acutely infected but were felt to be possibly secondary to vasculitis or sarcoidosis. Her prednisone was increased to 60 mg a day and a punch biopsy was performed. Reason For Visit: WOUND INFECTION Physical Exam Vital Signs: Temp Pulse Resp BP Pulse Ox 97.4 F 78 20 125/82 100 09/28/17 04:00 09/28/17 04:00 09/28/17 04:00 09/28/17 04:00 09/28/17 04:00 Intake & Output 09/27/17 09/28/17 09/29/17 06:59 06:59 06:59 Intake Total 2220 1300 Output Total 700 Balance 2220 600 Additional comments: Middle-aged -[place] female with bilateral [id number] amputation sitting in her wheelchair eating lunch HEENT: Pupils reactive to light moist pink oral mucosa Lungs: Clear to auscultation bilaterally normal respiratory effort Abdomen: Soft, no focal tenderness normal bowel sounds Cardiac: S1-S2 regular no murmurs heard Skin: Bilateral AKA stumps look good with no discharge or skin breakdown or fluctuance or purulence Left arm wound appears dry with no evidence of acute infection. Results Laboratory Results: 09/27/17 06:20 09/27/17 06:20 09/27/17 06:20 Sodium 137.6 Potassium 3.6 Chloride 100 Carbon Dioxide 22 Anion Gap 16 BUN 38 H Creatinine 0.73 Est GFR ( Amer) > 60 Est GFR (Non-Af Amer) > 60 Glucose 96 Calcium 9.1 Phosphorus 4.9 H Magnesium 1.8 Pathology showed skin with inflamed parakeratosis and subepithelial mild chronic inflammation with no dysplasia or malignancy. Impressions: Femur X-Ray 08/28/17 10:15 IMPRESSION: Relatively intact left mid leg amputation site. Findings as above. Surveillance followup radiographs may prove helpful to exclude developing osteomyelitis. Lower Extremity MRI 08/31/17 12:30 IMPRESSION: 1. Bilateral amputations with minimal reactive bone edema and regional soft tissue edema without drainable abscess. Doubt osteomyelitis, marrow signal changes may simply be related to overlying soft tissue infection and irritation. Surveillance followup radiographs to assess for progressive bone resorption recommended. Progressive bone lysis would suggest osteomyelitis. Chest X-Ray 09/03/17 00:00 IMPRESSION: NO ACUTE RADIOGRAPHIC FINDING IN THE CHEST. RIGHT IJ VENOUS CATHETER TERMINATES WITHIN THE RIGHT ATRIUM. CONSIDER PULLING BACK 4 TO 5 CM. Guidance Fluoroscopy 09/17/17 00:00 IMPRESSION: SUCCESSFUL PLACEMENT OF A 5 FR DUAL LUMEN 31 CM PICC IN THE RIGHT BASILIC VEIN. Interventional Vascular Procedure 09/17/17 00:00 IMPRESSION: SUCCESSFUL PLACEMENT OF A 5 FR DUAL LUMEN 31 CM PICC IN THE RIGHT BASILIC VEIN. PICC Line Insertion 09/17/17 00:00 IMPRESSION: SUCCESSFUL PLACEMENT OF A 5 FR DUAL LUMEN 31 CM PICC IN THE RIGHT BASILIC VEIN. Assessment & Plan - Diagnosis (1) Pneumonia involving right lung Qualifiers: Pneumonia type: aspiration pneumonia Aspiration pneumonia type: unspecified Lung location: upper lobe of lung Qualified Code(s): J69.0 - Pneumonitis due to inhalation of food and vomit (3) Ulcer of right lower extremity Is this a current diagnosis for this admission?: Yes (4) Abnormal electrocardiogram Is this a current diagnosis for this admission?: Yes (5) Allergic reaction caused by a drug Qualifiers: Encounter type: sequela Qualified Code(s): T78.40XS - Allergy, unspecified , sequela Is this a current diagnosis for this admission?: No (6) SLE (systemic lupus erythematosus) Qualifiers: Systemic lupus erythematosus type: unspecified Systemic lupus erythematosus organ involvement: unspecified Qualified Code(s): M32.9 - Systemic lupus erythematosus, unspecified Is this a current diagnosis for this admission?: Yes Plan: Currently on steroids. She will need to see a stock buyer as an outpatient - Time Time Spent with patient: 15-24 minutes
[2017-09-29] MEDS: GABAPENTIN 400 MG CAPSULE PO SCH ×3 (06:09→21:56)
[2017-09-29] MEDS: FAMOTIDINE 20 MG TABLET PO SCH ×2 (06:10→18:13)
[2017-09-29] MEDS: PREDNISONE 20 MG TABLET PO SCH (09:30)
[2017-09-29] MEDS: MAGNESIUM OXIDE 400 MG TABLET PO SCH ×2 (09:31→18:13)
[2017-09-29] MEDS: FERROUS SULFATE 325 MG TABLET PO SCH ×3 (09:31→18:13)
[2017-09-29] MEDS: ASPIRIN 81 MG TABLET, CHEWABLE PO SCH (09:31)
[2017-09-29] MEDS: FLUOXETINE HCL 20 MG CAPSULE PO SCH (09:31)
[2017-09-29] MEDS: OXYCODONE HCL IR 5 MG TABLET PO PRN ×3 (09:38→21:56)
[2017-09-29] MEDS: HYDROCORTISONE 1% CREAM 28.35 GM TP SCH ×2 (10:03→21:58)
--- NOTE | 2017-09-29 16:05 | PDOC PROGRESS REPORT ---
Subjective Progress Note for:: 09/29/17 Subjective:: less pains biopsy site left upper arm Reason For Visit: WOUND INFECTION Physical Exam Vital Signs: Temp Pulse Resp BP Pulse Ox 98.4 F 102 H 17 143/93 H 100 09/29/17 12:00 09/29/17 12:00 09/29/17 12:00 09/29/17 12:00 09/29/17 12:00 Intake & Output 09/28/17 09/29/17 09/30/17 06:59 06:59 06:59 Intake Total 1300 660 Output Total 700 Balance 600 660 Exam: All lesions are dry. Awaiting leg prosthesis and placement Results Laboratory Results: 09/27/17 06:20 09/27/17 06:20 Impressions: Femur X-Ray 08/28/17 10:15 IMPRESSION: Relatively intact left mid leg amputation site. Findings as above. Surveillance followup radiographs may prove helpful to exclude developing osteomyelitis. Lower Extremity MRI 08/31/17 12:30 IMPRESSION: 1. Bilateral amputations with minimal reactive bone edema and regional soft tissue edema without drainable abscess. Doubt osteomyelitis, marrow signal changes may simply be related to overlying soft tissue infection and irritation. Surveillance followup radiographs to assess for progressive bone resorption recommended. Progressive bone lysis would suggest osteomyelitis. Chest X-Ray 09/03/17 00:00 IMPRESSION: NO ACUTE RADIOGRAPHIC FINDING IN THE CHEST. RIGHT IJ VENOUS CATHETER TERMINATES WITHIN THE RIGHT ATRIUM. CONSIDER PULLING BACK 4 TO 5 CM. Guidance Fluoroscopy 09/17/17 00:00 IMPRESSION: SUCCESSFUL PLACEMENT OF A 5 FR DUAL LUMEN 31 CM PICC IN THE RIGHT BASILIC VEIN. Interventional Vascular Procedure 09/17/17 00:00 IMPRESSION: SUCCESSFUL PLACEMENT OF A 5 FR DUAL LUMEN 31 CM PICC IN THE RIGHT BASILIC VEIN. PICC Line Insertion 09/17/17 00:00 IMPRESSION: SUCCESSFUL PLACEMENT OF A 5 FR DUAL LUMEN 31 CM PICC IN THE RIGHT BASILIC VEIN. Assessment & Plan - Time Time Spent with patient: 15-24 minutes - Plan Summary Plan Summary: Awaiting placement await bx result
[2017-09-29] MEDS ORDERED: KETOROLAC TROMETHAMINE INJ/PF 30 MG/1 ML SDV IV PRN (16:57)
--- NOTE | 2017-09-29 17:02 | PDOC PROGRESS REPORT ---
Subjective Progress Note for:: 09/29/17 Subjective:: 42-year-old -[place] female with past medical history of Lupus complicated by severe peripheral vascular disease requiring bilateral AKA Hypertension Chronic kidney disease She was admitted to the hospital on August 31 with bilateral lower extremity stump swelling and draining purulent fluid with development of ulcers. Debridement was performed in the OR twice. 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 The patient has been anemic and was given blood transfusions. The hospitalist service was following and had signed off on September 06. They were reconsulted since the patient developed a rash. This was felt to be secondary to Zosyn and it was stopped on September 04. There was some concern for possible Starkey-Ruddy syndrome which was ruled out by the physician at the time. She was initially on Solu-Medrol which was switched to prednisone. On September 23 the hospitalist service was consulted again today again for a wound in the left arm as well as her left anterior chest wall which did not appear to be acutely infected but were felt to be possibly secondary to vasculitis or sarcoidosis. Her prednisone was increased to 60 mg a day and a punch biopsy was performed. Prednisone will be slowly tapered off by 10 mg a week until she is down to 5 mg which will be continued. She needs to see a logistics supply officer as an outpatient. Biopsy showed inflammation with no evidence of malignancy. Patient has no complaints at present. Reason For Visit: WOUND INFECTION Physical Exam Vital Signs: Temp Pulse Resp BP Pulse Ox 98.4 F 102 H 17 143/93 H 100 09/29/17 12:00 09/29/17 12:00 09/29/17 12:00 09/29/17 12:00 09/29/17 12:00 Intake & Output 09/28/17 09/29/17 09/30/17 06:59 06:59 06:59 Intake Total 1300 660 Output Total 700 Balance 600 660 Additional comments: Aged -[place] female sitting up in her chair not in acute distress she has bilateral [id number]-[id number] amputations Lungs: Clear to auscultation bilaterally Cardiac: S1-S2 regular Skin: She has her pigmentation from a prior skin rash all over her body. She has dry ulcer on her left upper arm which does not appear infected. Likely secondary to lupus. Results Laboratory Results: 09/27/17 06:20 09/27/17 06:20 Impressions: Femur X-Ray 08/28/17 10:15 IMPRESSION: Relatively intact left mid leg amputation site. Findings as above. Surveillance followup radiographs may prove helpful to exclude developing osteomyelitis. Lower Extremity MRI 08/31/17 12:30 IMPRESSION: 1. Bilateral amputations with minimal reactive bone edema and regional soft tissue edema without drainable abscess. Doubt osteomyelitis, marrow signal changes may simply be related to overlying soft tissue infection and irritation. Surveillance followup radiographs to assess for progressive bone resorption recommended. Progressive bone lysis would suggest osteomyelitis. Chest X-Ray 09/03/17 00:00 IMPRESSION: NO ACUTE RADIOGRAPHIC FINDING IN THE CHEST. RIGHT IJ VENOUS CATHETER TERMINATES WITHIN THE RIGHT ATRIUM. CONSIDER PULLING BACK 4 TO 5 CM. Guidance Fluoroscopy 09/17/17 00:00 IMPRESSION: SUCCESSFUL PLACEMENT OF A 5 FR DUAL LUMEN 31 CM PICC IN THE RIGHT BASILIC VEIN. Interventional Vascular Procedure 09/17/17 00:00 IMPRESSION: SUCCESSFUL PLACEMENT OF A 5 FR DUAL LUMEN 31 CM PICC IN THE RIGHT BASILIC VEIN. PICC Line Insertion 09/17/17 00:00 IMPRESSION: SUCCESSFUL PLACEMENT OF A 5 FR DUAL LUMEN 31 CM PICC IN THE RIGHT BASILIC VEIN. Assessment & Plan - Diagnosis (1) SLE (systemic lupus erythematosus) Qualifiers: Systemic lupus erythematosus type: unspecified Systemic lupus erythematosus organ involvement: unspecified Qualified Code(s): M32.9 - Systemic lupus erythematosus, unspecified Is this a current diagnosis for this admission?: Yes Plan: Continue steroids. She will need to see a logistics supply officer as an outpatient. 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 Qualified Code(s): Z89.611 - Acquired absence of right leg above knee; Z89.612 - Acquired absence of left leg above knee; Z89.612 - Acquired absence of left leg above knee; Z89.612 - Acquired absence of left leg above knee Is this a current diagnosis for this admission?: No (3) Starkey-Ruddy syndrome Is this a current diagnosis for this admission?: No - Time Time Spent with patient: Less than 15 minutes
[2017-09-29] MEDS ORDERED: KETOROLAC TROMETHAMINE 10 MG TABLET PO PRN (20:13)
[2017-09-30] MEDS: FAMOTIDINE 20 MG TABLET PO SCH ×2 (06:31→18:20)
[2017-09-30] MEDS: GABAPENTIN 400 MG CAPSULE PO SCH ×3 (06:31→22:32)
[2017-09-30] MEDS: FERROUS SULFATE 325 MG TABLET PO SCH ×3 (08:48→16:58)
--- NOTE | 2017-09-30 09:03 | PDOC PROGRESS REPORT ---
Subjective Progress Note for:: 09/30/17 Subjective:: Feels well. No complaints. Reason For Visit: WOUND INFECTION Physical Exam Vital Signs: Temp Pulse Resp BP Pulse Ox 98.8 F 79 18 127/84 H 100 09/30/17 04:00 09/30/17 04:00 09/30/17 04:00 09/30/17 04:00 09/30/17 04:00 Intake & Output 09/29/17 09/30/17 10/01/17 06:59 06:59 06:59 Intake Total 660 600 Output Total 300 Balance 660 300 General appearance: PRESENT: no acute distress, cooperative Respiratory exam: PRESENT: clear to auscultation rei Cardiovascular exam: PRESENT: RRR Extremities exam: PRESENT: other - Bilateral AKA stumps well-healed with couple of small areas of scab but no drainage and no erythema. Results Laboratory Results: 09/27/17 06:20 09/27/17 06:20 09/24/17 19:07 Blood Blood Culture - Final NO GROWTH IN 5 DAYS 09/24/17 19:15 Blood Blood Culture - Final NO GROWTH IN 5 DAYS Impressions: Femur X-Ray 08/28/17 10:15 IMPRESSION: Relatively intact left mid leg amputation site. Findings as above. Surveillance followup radiographs may prove helpful to exclude developing osteomyelitis. Lower Extremity MRI 08/31/17 12:30 IMPRESSION: 1. Bilateral amputations with minimal reactive bone edema and regional soft tissue edema without drainable abscess. Doubt osteomyelitis, marrow signal changes may simply be related to overlying soft tissue infection and irritation. Surveillance followup radiographs to assess for progressive bone resorption recommended. Progressive bone lysis would suggest osteomyelitis. Chest X-Ray 09/03/17 00:00 IMPRESSION: NO ACUTE RADIOGRAPHIC FINDING IN THE CHEST. RIGHT IJ VENOUS CATHETER TERMINATES WITHIN THE RIGHT ATRIUM. CONSIDER PULLING BACK 4 TO 5 CM. Guidance Fluoroscopy 09/17/17 00:00 IMPRESSION: SUCCESSFUL PLACEMENT OF A 5 FR DUAL LUMEN 31 CM PICC IN THE RIGHT BASILIC VEIN. Interventional Vascular Procedure 09/17/17 00:00 IMPRESSION: SUCCESSFUL PLACEMENT OF A 5 FR DUAL LUMEN 31 CM PICC IN THE RIGHT BASILIC VEIN. PICC Line Insertion 09/17/17 00:00 IMPRESSION: SUCCESSFUL PLACEMENT OF A 5 FR DUAL LUMEN 31 CM PICC IN THE RIGHT BASILIC VEIN. 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 The wounds are healing well. Awaiting placement.
[2017-09-30] MEDS: ASPIRIN 81 MG TABLET, CHEWABLE PO SCH (10:23)
[2017-09-30] MEDS: MAGNESIUM OXIDE 400 MG TABLET PO SCH ×2 (10:23→18:20)
[2017-09-30] MEDS: PREDNISONE 20 MG TABLET PO SCH (10:24)
[2017-09-30] MEDS: FLUOXETINE HCL 20 MG CAPSULE PO SCH (10:24)
[2017-09-30] MEDS: HYDROCORTISONE 1% CREAM 28.35 GM TP SCH (10:25)
[2017-09-30 11:31] LABS: ANION GAP 10 (5-19); BLOOD UREA NITROGEN 28 mg/dL (7-20); CALCIUM 9.6 mg/dL (8.4-10.2); CARBON DIOXIDE 29 mmol/L (22-30); CHLORIDE 100 mmol/L (98-107); GLUCOSE 93 mg/dL (75-110); POTASSIUM 4.1 mmol/L (3.6-5.0); SODIUM 138.7 mmol/L (137-145)
[2017-09-30] MEDS: OXYCODONE HCL IR 5 MG TABLET PO PRN ×2 (12:40→18:28)
--- NOTE | 2017-09-30 17:21 | PDOC PROGRESS REPORT ---
Subjective Progress Note for:: 09/30/17 Subjective:: 42-year-old -[place] female with past medical history of Lupus complicated by severe peripheral vascular disease requiring bilateral AKA Hypertension Chronic kidney disease She was admitted to the hospital on August 31 with bilateral lower extremity stump swelling and draining purulent fluid with development of ulcers. Debridement was performed in the OR twice. 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 The patient has been anemic and was given blood transfusions. The hospitalist service was following and had signed off on September 06. They were reconsulted since the patient developed a rash. This was felt to be secondary to Zosyn and it was stopped on September 04. There was some concern for possible Starkey-Ruddy syndrome which was ruled out by the physician at the time. She was initially on Solu-Medrol which was switched to prednisone. On September 23 the hospitalist service was consulted again today again for a wound in the left arm as well as her left anterior chest wall which did not appear to be acutely infected but were felt to be possibly secondary to vasculitis or sarcoidosis. Her prednisone was increased to 60 mg a day and a punch biopsy was performed. Prednisone will be slowly tapered off by 10 mg a week until she is down to 5 mg which will be continued. She needs to see a hypoid gear tester as an outpatient. Biopsy showed inflammation with no evidence of malignancy. Patient has no complaints at present. Her wound looks good. It is improved in appearance. No acute infection noted. We will sign off. Please call with questions. Reason For Visit: WOUND INFECTION Physical Exam Vital Signs: Temp Pulse Resp BP Pulse Ox 98.3 F 99 16 145/87 H 100 09/30/17 16:00 09/30/17 16:00 09/30/17 16:00 09/30/17 16:00 09/30/17 16:00 Intake & Output 09/29/17 09/30/17 10/01/17 06:59 06:59 06:59 Intake Total 660 600 240 Output Total 300 Balance 660 300 240 Additional comments: Young female with bilateral bikus-mwj-edet amputations sitting in her chair not in acute distress Lungs: Clear to auscultation bilaterally normal respiratory effort Cardiac: S1-S2 regular Abdomen: Soft, no focal tenderness Skin: Warm and dry she has a wound on her left upper arm which is dry and there is no fluctuance tenderness erythema or discharge Results Laboratory Results: 09/27/17 06:20 09/30/17 10:54 09/30/17 10:54 Sodium 138.7 Potassium 4.1 Chloride 100 Carbon Dioxide 29 Anion Gap 10 BUN 28 H Creatinine 0.58 Est GFR ( Amer) > 60 Est GFR (Non-Af Amer) > 60 Glucose 93 Calcium 9.6 09/24/17 19:07 Blood Blood Culture - Final NO GROWTH IN 5 DAYS 09/24/17 19:15 Blood Blood Culture - Final NO GROWTH IN 5 DAYS Impressions: Femur X-Ray 08/28/17 10:15 IMPRESSION: Relatively intact left mid leg amputation site. Findings as above. Surveillance followup radiographs may prove helpful to exclude developing osteomyelitis. Lower Extremity MRI 08/31/17 12:30 IMPRESSION: 1. Bilateral amputations with minimal reactive bone edema and regional soft tissue edema without drainable abscess. Doubt osteomyelitis, marrow signal changes may simply be related to overlying soft tissue infection and irritation. Surveillance followup radiographs to assess for progressive bone resorption recommended. Progressive bone lysis would suggest osteomyelitis. Chest X-Ray 09/03/17 00:00 IMPRESSION: NO ACUTE RADIOGRAPHIC FINDING IN THE CHEST. RIGHT IJ VENOUS CATHETER TERMINATES WITHIN THE RIGHT ATRIUM. CONSIDER PULLING BACK 4 TO 5 CM. Guidance Fluoroscopy 09/17/17 00:00 IMPRESSION: SUCCESSFUL PLACEMENT OF A 5 FR DUAL LUMEN 31 CM PICC IN THE RIGHT BASILIC VEIN. Interventional Vascular Procedure 09/17/17 00:00 IMPRESSION: SUCCESSFUL PLACEMENT OF A 5 FR DUAL LUMEN 31 CM PICC IN THE RIGHT BASILIC VEIN. PICC Line Insertion 09/17/17 00:00 IMPRESSION: SUCCESSFUL PLACEMENT OF A 5 FR DUAL LUMEN 31 CM PICC IN THE RIGHT BASILIC VEIN. Assessment & Plan - Diagnosis (1) SLE (systemic lupus erythematosus) Qualifiers: Systemic lupus erythematosus type: unspecified Systemic lupus erythematosus organ involvement: unspecified Qualified Code(s): M32.9 - Systemic lupus erythematosus, unspecified Is this a current diagnosis for this admission?: Yes 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 Qualified Code(s): Z89.611 - Acquired absence of right leg above knee; Z89.612 - Acquired absence of left leg above knee; Z89.612 - Acquired absence of left leg above knee; Z89.612 - Acquired absence of left leg above knee Is this a current diagnosis for this admission?: No (3) Starkey-Ruddy syndrome Is this a current diagnosis for this admission?: No - Time Time Spent with patient: Less than 15 minutes - Plan Summary Plan Summary: Her wound looks good. It is improved in appearance. No acute infection noted. We will sign off. Please call with questions. Continue prednisone taper. Reduce by 10 mg every week until she is down to 5 mg which will be continued. She needs to see a hypoid gear tester as an outpatient. This appointment needs to be arranged prior to discharge.
[2017-10-01] MEDS: OXYCODONE HCL IR 5 MG TABLET PO PRN ×3 (02:05→19:15)
[2017-10-01] MEDS: HYDROCORTISONE 1% CREAM 28.35 GM TP SCH ×3 (05:18→22:35)
[2017-10-01] MEDS: GABAPENTIN 400 MG CAPSULE PO SCH ×3 (07:36→21:53)
[2017-10-01] MEDS: FAMOTIDINE 20 MG TABLET PO SCH ×2 (07:36→17:34)
[2017-10-01] MEDS: FERROUS SULFATE 325 MG TABLET PO SCH ×3 (09:36→17:34)
[2017-10-01] MEDS: FLUOXETINE HCL 20 MG CAPSULE PO SCH (09:58)
[2017-10-01] MEDS: MAGNESIUM OXIDE 400 MG TABLET PO SCH ×2 (09:58→17:34)
[2017-10-01] MEDS: ASPIRIN 81 MG TABLET, CHEWABLE PO SCH (09:58)
[2017-10-01] MEDS: PREDNISONE 20 MG TABLET PO SCH (09:59)
--- NOTE | 2017-10-01 17:37 | PDOC PROGRESS REPORT ---
Subjective Progress Note for:: 10/01/17 Subjective:: mild pains left arm punch biopsy site Reason For Visit: WOUND INFECTION Physical Exam Vital Signs: Temp Pulse Resp BP Pulse Ox 97.9 F 84 18 125/76 100 10/01/17 16:00 10/01/17 16:00 10/01/17 16:00 10/01/17 16:00 10/01/17 16:00 Intake & Output 09/30/17 10/01/17 10/02/17 06:59 06:59 06:59 Intake Total 600 920 Output Total 300 Balance 300 920 Exam: alllesions are dry and healing well. Results Laboratory Results: 09/27/17 06:20 09/30/17 10:54 Impressions: Femur X-Ray 08/28/17 10:15 IMPRESSION: Relatively intact left mid leg amputation site. Findings as above. Surveillance followup radiographs may prove helpful to exclude developing osteomyelitis. Lower Extremity MRI 08/31/17 12:30 IMPRESSION: 1. Bilateral amputations with minimal reactive bone edema and regional soft tissue edema without drainable abscess. Doubt osteomyelitis, marrow signal changes may simply be related to overlying soft tissue infection and irritation. Surveillance followup radiographs to assess for progressive bone resorption recommended. Progressive bone lysis would suggest osteomyelitis. Chest X-Ray 09/03/17 00:00 IMPRESSION: NO ACUTE RADIOGRAPHIC FINDING IN THE CHEST. RIGHT IJ VENOUS CATHETER TERMINATES WITHIN THE RIGHT ATRIUM. CONSIDER PULLING BACK 4 TO 5 CM. Guidance Fluoroscopy 09/17/17 00:00 IMPRESSION: SUCCESSFUL PLACEMENT OF A 5 FR DUAL LUMEN 31 CM PICC IN THE RIGHT BASILIC VEIN. Interventional Vascular Procedure 09/17/17 00:00 IMPRESSION: SUCCESSFUL PLACEMENT OF A 5 FR DUAL LUMEN 31 CM PICC IN THE RIGHT BASILIC VEIN. PICC Line Insertion 09/17/17 00:00 IMPRESSION: SUCCESSFUL PLACEMENT OF A 5 FR DUAL LUMEN 31 CM PICC IN THE RIGHT BASILIC VEIN. Assessment & Plan - Time Time Spent with patient: 15-24 minutes - Plan Summary Plan Summary: awaiting placement. Prosthesis will be tried Tue according to the patient
[2017-10-02] MEDS: FAMOTIDINE 20 MG TABLET PO SCH ×2 (05:49→17:14)
[2017-10-02] MEDS: GABAPENTIN 400 MG CAPSULE PO SCH ×3 (05:49→21:01)
[2017-10-02] MEDS: OXYCODONE HCL IR 5 MG TABLET PO PRN ×3 (07:01→21:04)
[2017-10-02] MEDS: FLUOXETINE HCL 20 MG CAPSULE PO SCH (09:29)
[2017-10-02] MEDS: FERROUS SULFATE 325 MG TABLET PO SCH ×3 (09:29→17:14)
[2017-10-02] MEDS: MAGNESIUM OXIDE 400 MG TABLET PO SCH ×2 (09:29→17:14)
[2017-10-02] MEDS: PREDNISONE 20 MG TABLET PO SCH (09:30)
[2017-10-02] MEDS: HYDROCORTISONE 1% CREAM 28.35 GM TP SCH ×2 (09:30→20:52)
--- NOTE | 2017-10-02 10:29 | PDOC PROGRESS REPORT ---
Subjective Reason For Visit: The patient has no complaints. No dressings on AKA stumps. Physical Exam Vital Signs: Temp Pulse Resp BP Pulse Ox 98.1 F 89 16 134/79 H 99 10/02/17 04:00 10/02/17 04:00 10/02/17 04:00 10/02/17 04:00 10/02/17 04:00 Intake & Output 10/01/17 10/02/17 10/03/17 06:59 06:59 06:59 Intake Total 920 966 Balance 920 966 General appearance: PRESENT: no acute distress Musculoskeletal exam: PRESENT: other - The left upper extremity dressing removed. Sutures at biopsy site appreciated. No evidence of infection. Lots of scaling dry skin AKA wounds completely epithelialized Results Laboratory Results: 09/27/17 06:20 09/30/17 10:54 Impressions: Femur X-Ray 08/28/17 10:15 IMPRESSION: Relatively intact left mid leg amputation site. Findings as above. Surveillance followup radiographs may prove helpful to exclude developing osteomyelitis. Lower Extremity MRI 08/31/17 12:30 IMPRESSION: 1. Bilateral amputations with minimal reactive bone edema and regional soft tissue edema without drainable abscess. Doubt osteomyelitis, marrow signal changes may simply be related to overlying soft tissue infection and irritation. Surveillance followup radiographs to assess for progressive bone resorption recommended. Progressive bone lysis would suggest osteomyelitis. Chest X-Ray 09/03/17 00:00 IMPRESSION: NO ACUTE RADIOGRAPHIC FINDING IN THE CHEST. RIGHT IJ VENOUS CATHETER TERMINATES WITHIN THE RIGHT ATRIUM. CONSIDER PULLING BACK 4 TO 5 CM. Guidance Fluoroscopy 09/17/17 00:00 IMPRESSION: SUCCESSFUL PLACEMENT OF A 5 FR DUAL LUMEN 31 CM PICC IN THE RIGHT BASILIC VEIN. Interventional Vascular Procedure 09/17/17 00:00 IMPRESSION: SUCCESSFUL PLACEMENT OF A 5 FR DUAL LUMEN 31 CM PICC IN THE RIGHT BASILIC VEIN. PICC Line Insertion 09/17/17 00:00 IMPRESSION: SUCCESSFUL PLACEMENT OF A 5 FR DUAL LUMEN 31 CM PICC IN THE RIGHT BASILIC VEIN. Assessment & Plan - Diagnosis (1) Abscess of left leg Is this a current diagnosis for this admission?: Yes Plan: 1. Bilateral AK wounds have healed satisfactorily; all sutures out. Wounds have epithelialized 2. Patient can be fitted with prosthesis pending rehabilitation potential. Recommendations: 1. Left upper extremity skin biopsy shows no evidence of malignancy. We will discontinue all sutures left upper extremity. 2. [facility] (2) Effusion, left knee Is this a current diagnosis for this admission?: Yes (3) Osteomyelitis of right leg Is this a current diagnosis for this admission?: Yes
[2017-10-02] MEDS ORDERED: ASPIRIN 81 MG TABLET, CHEWABLE PO ONE (11:00)
[2017-10-03] MEDS: OXYCODONE HCL IR 5 MG TABLET PO PRN ×2 (04:16→16:55)
[2017-10-03] MEDS: GABAPENTIN 400 MG CAPSULE PO SCH ×3 (05:37→21:06)
[2017-10-03] MEDS: FAMOTIDINE 20 MG TABLET PO SCH ×2 (05:37→16:55)
[2017-10-03] MEDS: FERROUS SULFATE 325 MG TABLET PO SCH ×3 (07:55→16:55)
[2017-10-03] MEDS: PREDNISONE 20 MG TABLET PO SCH (09:02)
[2017-10-03] MEDS: ASPIRIN 81 MG TABLET, CHEWABLE PO SCH (09:02)
[2017-10-03] MEDS: FLUOXETINE HCL 20 MG CAPSULE PO SCH (09:02)
[2017-10-03] MEDS: MAGNESIUM OXIDE 400 MG TABLET PO SCH ×2 (09:02→16:55)
[2017-10-03] MEDS: HYDROCORTISONE 1% CREAM 28.35 GM TP SCH ×2 (09:04→21:09)
--- NOTE | 2017-10-03 10:29 | PDOC PROGRESS REPORT ---
Subjective Reason For Visit: No complaints; Transfering to bedside commode Physical Exam Vital Signs: Temp Pulse Resp BP Pulse Ox 98.0 F 73 16 121/71 100 10/03/17 07:39 10/03/17 07:39 10/03/17 07:39 10/03/17 07:39 10/03/17 07:39 Intake & Output 10/02/17 10/03/17 10/04/17 06:59 06:59 06:59 Intake Total 966 750 Balance 966 750 Weight 59.1 kg General appearance: PRESENT: no acute distress Skin exam: PRESENT: other - No deformities; wounds epithelialized. Results Laboratory Results: 09/27/17 06:20 09/30/17 10:54 Impressions: Femur X-Ray 08/28/17 10:15 IMPRESSION: Relatively intact left mid leg amputation site. Findings as above. Surveillance followup radiographs may prove helpful to exclude developing osteomyelitis. Lower Extremity MRI 08/31/17 12:30 IMPRESSION: 1. Bilateral amputations with minimal reactive bone edema and regional soft tissue edema without drainable abscess. Doubt osteomyelitis, marrow signal changes may simply be related to overlying soft tissue infection and irritation. Surveillance followup radiographs to assess for progressive bone resorption recommended. Progressive bone lysis would suggest osteomyelitis. Chest X-Ray 09/03/17 00:00 IMPRESSION: NO ACUTE RADIOGRAPHIC FINDING IN THE CHEST. RIGHT IJ VENOUS CATHETER TERMINATES WITHIN THE RIGHT ATRIUM. CONSIDER PULLING BACK 4 TO 5 CM. Guidance Fluoroscopy 09/17/17 00:00 IMPRESSION: SUCCESSFUL PLACEMENT OF A 5 FR DUAL LUMEN 31 CM PICC IN THE RIGHT BASILIC VEIN. Interventional Vascular Procedure 09/17/17 00:00 IMPRESSION: SUCCESSFUL PLACEMENT OF A 5 FR DUAL LUMEN 31 CM PICC IN THE RIGHT BASILIC VEIN. PICC Line Insertion 09/17/17 00:00 IMPRESSION: SUCCESSFUL PLACEMENT OF A 5 FR DUAL LUMEN 31 CM PICC IN THE RIGHT BASILIC VEIN. Assessment & Plan - Diagnosis (1) Abscess of left leg Is this a current diagnosis for this admission?: Yes (2) Effusion, left knee Is this a current diagnosis for this admission?: Yes (3) Osteomyelitis of right leg Is this a current diagnosis for this admission?: Yes Plan: Patient doing well, transferring from bed to chair, awaiting transfer to longterm facility Will arrange to have patient transferred to the medical service tomorrow
[2017-10-04] MEDS: FAMOTIDINE 20 MG TABLET PO SCH (05:10)
[2017-10-04] MEDS: GABAPENTIN 400 MG CAPSULE PO SCH ×3 (05:10→21:33)
[2017-10-04] MEDS: OXYCODONE HCL IR 5 MG TABLET PO PRN (08:45)
[2017-10-04] MEDS: FERROUS SULFATE 325 MG TABLET PO SCH ×2 (08:46→11:41)
[2017-10-04] MEDS: PREDNISONE 20 MG TABLET PO SCH (08:46)
[2017-10-04] MEDS: MAGNESIUM OXIDE 400 MG TABLET PO SCH ×2 (08:46→17:15)
[2017-10-04] MEDS: ASPIRIN 81 MG TABLET, CHEWABLE PO SCH (08:46)
[2017-10-04] MEDS: FLUOXETINE HCL 20 MG CAPSULE PO SCH (08:47)
[2017-10-04] MEDS: HYDROCORTISONE 1% CREAM 28.35 GM TP SCH ×2 (09:05→21:32)
--- NOTE | 2017-10-04 20:00 | PDOC PROGRESS REPORT ---
Subjective Progress Note for:: 10/04/17 Subjective:: no complaints. Reason For Visit: WOUND INFECTION Physical Exam Vital Signs: Temp Pulse Resp BP Pulse Ox 98.4 F 94 16 137/82 H 100 10/04/17 16:28 10/04/17 16:28 10/04/17 16:28 10/04/17 16:28 10/04/17 16:28 Intake & Output 10/03/17 10/04/17 10/05/17 06:59 06:59 06:59 Intake Total 750 1800 Output Total 1100 Balance 750 1800 -1100 Weight 59.1 kg Exam: all wounds healing well Results Laboratory Results: 09/27/17 06:20 09/30/17 10:54 Impressions: Femur X-Ray 08/28/17 10:15 IMPRESSION: Relatively intact left mid leg amputation site. Findings as above. Surveillance followup radiographs may prove helpful to exclude developing osteomyelitis. Lower Extremity MRI 08/31/17 12:30 IMPRESSION: 1. Bilateral amputations with minimal reactive bone edema and regional soft tissue edema without drainable abscess. Doubt osteomyelitis, marrow signal changes may simply be related to overlying soft tissue infection and irritation. Surveillance followup radiographs to assess for progressive bone resorption recommended. Progressive bone lysis would suggest osteomyelitis. Chest X-Ray 09/03/17 00:00 IMPRESSION: NO ACUTE RADIOGRAPHIC FINDING IN THE CHEST. RIGHT IJ VENOUS CATHETER TERMINATES WITHIN THE RIGHT ATRIUM. CONSIDER PULLING BACK 4 TO 5 CM. Guidance Fluoroscopy 09/17/17 00:00 IMPRESSION: SUCCESSFUL PLACEMENT OF A 5 FR DUAL LUMEN 31 CM PICC IN THE RIGHT BASILIC VEIN. Interventional Vascular Procedure 09/17/17 00:00 IMPRESSION: SUCCESSFUL PLACEMENT OF A 5 FR DUAL LUMEN 31 CM PICC IN THE RIGHT BASILIC VEIN. PICC Line Insertion 09/17/17 00:00 IMPRESSION: SUCCESSFUL PLACEMENT OF A 5 FR DUAL LUMEN 31 CM PICC IN THE RIGHT BASILIC VEIN. Assessment & Plan - Time Time Spent with patient: 15-24 minutes - Plan Summary Plan Summary: Awaiting transfer to rehab. Prosthesis person coming in tomorrow. try to transfer patient to medicine service.
[2017-10-05] MEDS: GABAPENTIN 400 MG CAPSULE PO SCH ×3 (05:48→21:32)
[2017-10-05] MEDS: PREDNISONE 20 MG TABLET PO SCH (09:18)
[2017-10-05] MEDS: FLUOXETINE HCL 20 MG CAPSULE PO SCH (09:18)
[2017-10-05] MEDS: HYDROCORTISONE 1% CREAM 28.35 GM TP SCH ×2 (09:19→21:30)
[2017-10-05] MEDS: ASPIRIN 81 MG TABLET, CHEWABLE PO SCH (09:19)
[2017-10-05] MEDS: MAGNESIUM OXIDE 400 MG TABLET PO SCH ×2 (09:19→17:57)
--- NOTE | 2017-10-05 19:38 | PDOC PROGRESS REPORT ---
Subjective Progress Note for:: 10/05/17 Subjective:: no pains Reason For Visit: WOUND INFECTION Physical Exam Vital Signs: Temp Pulse Resp BP Pulse Ox 98.2 F 86 17 135/97 H 100 10/05/17 12:08 10/05/17 12:08 10/05/17 12:08 10/05/17 12:08 10/05/17 12:08 Intake & Output 10/04/17 10/05/17 10/06/17 06:59 06:59 06:59 Intake Total 1800 800 Output Total 1100 Balance 1800 -1100 800 Exam: all wounds healing well Results Laboratory Results: 09/27/17 06:20 09/30/17 10:54 Impressions: Femur X-Ray 08/28/17 10:15 IMPRESSION: Relatively intact left mid leg amputation site. Findings as above. Surveillance followup radiographs may prove helpful to exclude developing osteomyelitis. Lower Extremity MRI 08/31/17 12:30 IMPRESSION: 1. Bilateral amputations with minimal reactive bone edema and regional soft tissue edema without drainable abscess. Doubt osteomyelitis, marrow signal changes may simply be related to overlying soft tissue infection and irritation. Surveillance followup radiographs to assess for progressive bone resorption recommended. Progressive bone lysis would suggest osteomyelitis. Chest X-Ray 09/03/17 00:00 IMPRESSION: NO ACUTE RADIOGRAPHIC FINDING IN THE CHEST. RIGHT IJ VENOUS CATHETER TERMINATES WITHIN THE RIGHT ATRIUM. CONSIDER PULLING BACK 4 TO 5 CM. Guidance Fluoroscopy 09/17/17 00:00 IMPRESSION: SUCCESSFUL PLACEMENT OF A 5 FR DUAL LUMEN 31 CM PICC IN THE RIGHT BASILIC VEIN. Interventional Vascular Procedure 09/17/17 00:00 IMPRESSION: SUCCESSFUL PLACEMENT OF A 5 FR DUAL LUMEN 31 CM PICC IN THE RIGHT BASILIC VEIN. PICC Line Insertion 09/17/17 00:00 IMPRESSION: SUCCESSFUL PLACEMENT OF A 5 FR DUAL LUMEN 31 CM PICC IN THE RIGHT BASILIC VEIN. Assessment & Plan - Time Time Spent with patient: 15-24 minutes - Plan Summary Plan Summary: I spoke to the brand planner. No rehab facility is accepting her at this time. Patient's history of drug abuse may be hindering her placement. Prostheteist is supposed to see her today and patient claims he may recommend a facility.
[2017-10-05] MEDS: ACETAMINOPHEN 325 MG TABLET PO PRN (21:38)
[2017-10-06] MEDS: GABAPENTIN 400 MG CAPSULE PO SCH ×3 (06:01→23:24)
[2017-10-06] MEDS: MAGNESIUM OXIDE 400 MG TABLET PO SCH ×2 (10:10→18:51)
[2017-10-06] MEDS: ASPIRIN 81 MG TABLET, CHEWABLE PO SCH (10:10)
[2017-10-06] MEDS: FLUOXETINE HCL 20 MG CAPSULE PO SCH (10:10)
[2017-10-06] MEDS: PREDNISONE 20 MG TABLET PO SCH (10:10)
[2017-10-06] MEDS: HYDROCORTISONE 1% CREAM 28.35 GM TP SCH ×2 (11:17→23:23)
--- NOTE | 2017-10-06 11:30 | OPERATIVE REPORT E ---
Operative Report NAME: TAYLOR MACKEY : 1975 AGE: 42Y DATE OF SURGERY: 09/26/2017 ROOM: 206 PREOPERATIVE DIAGNOSIS: Chronic ulcer/wound, left lateral upper arm, rule out sarcoidosis. POSTOPERATIVE DIAGNOSIS: Chronic ulcer/wound, left lateral upper arm, rule out sarcoidosis. OPERATION: Punch biopsy. SURGEON: ANTHONY CHANDLER M.D. ANESTHESIA: Local. TISSUE REMOVED OR ALTERED: INDICATION: This is a 42-year-old female with vasculitis post bilateral AKA and amputation fourth digit distal phalanx, chronic wounds of the left arm and upper chest that are chronic and thickened and painful. PROCEDURE: Left upper arm was then prepped and draped in the usual sterile fashion. Local anesthesia infiltrated along the mid part of the lesion and an 8 mm punch biopsy was done. The defect was then closed with [id number] suture using 3-0 nylon. Hemostasis evident. Sterile dressings placed over the operative site. Specimen was then placed in a Formalin bottle. The patient tolerated the procedure well. DICTATING PHYSICIAN: ANTHONY CHANDLER M.D. [id number] PHY#: [id number] ID: [id number] JOB#: [id number] ACCT: [id number] cc:ANTHONY CHANDLER M.D. >
[2017-10-06] MEDS: ACETAMINOPHEN 325 MG TABLET PO PRN (14:46)
[2017-10-07] MEDS: GABAPENTIN 400 MG CAPSULE PO SCH ×2 (05:16→14:05)
[2017-10-07] MEDS: PREDNISONE 20 MG TABLET PO SCH (10:34)
[2017-10-07] MEDS: MAGNESIUM OXIDE 400 MG TABLET PO SCH ×2 (10:34→18:56)
[2017-10-07] MEDS: FLUOXETINE HCL 20 MG CAPSULE PO SCH (10:34)
[2017-10-07] MEDS: ASPIRIN 81 MG TABLET, CHEWABLE PO SCH (10:34)
[2017-10-07 12:19] VITALS: BP 131/89
[2017-10-07] MEDS: HYDROCORTISONE 1% CREAM 28.35 GM TP SCH (13:12)
--- NOTE | 2017-10-15 18:27 | PDOC DISCHARGE SUMMARY ---
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 If you need to reschedule please call the office directly at .) [facility] [place] [Outside] - 10/08/17 [facility] [Outside] - 10/08/17 ([facility] will follow up with you to schedule a time that they will come out to see. ) Discharge Activity: Activity As Tolerated Report the Following to Your Physician Immediately: Increase in Pain, Fever over 101 Degrees, Redness, Drainage-Yellow, Drainage-Garrido, Drainage-Green, Drainage-Foul Smelling
== END 2017-10-07 19:05 | disposition home or self-care (01) | DRG 463 ==
LOC: ER 13:04 → EH 08-31 18:14 → 4S 08-31 20:11 → 2N 09-20 00:47
PROVIDERS: ADMIT Surgery; ATTEND Surgery
PROC: 0JDM0ZZ Extraction of Left Upper Leg Subcutaneous Tissue and Fascia, Open Approach (ICD-10-PCS; 2017-08-30)
PROC: 0JBM0ZZ Excision of Left Upper Leg Subcutaneous Tissue and Fascia, Open Approach (ICD-10-PCS; principal; 2017-08-31 18:00)
PROC: 0Y6D0Z2 Detachment at Left Upper Leg, Mid, Open Approach (ICD-10-PCS; 2017-09-03)
PROC: 0X6T0Z3 Detachment at Left Ring Finger, Low, Open Approach (ICD-10-PCS; 2017-09-03)
PROC: 02HV33Z Insertion of Infusion Device into Superior Vena Cava, Percutaneous Approach (ICD-10-PCS; 2017-09-03)
PROC: B548ZZA Ultrasonography of Superior Vena Cava, Guidance (ICD-10-PCS; 2017-09-03)
PROC: 30233N1 Transfusion of Nonautologous Red Blood Cells into Peripheral Vein, Percutaneous Approach (ICD-10-PCS; 2017-09-04)
PROC: 02HV33Z Insertion of Infusion Device into Superior Vena Cava, Percutaneous Approach (ICD-10-PCS; 2017-09-17)
PROC: B548ZZA Ultrasonography of Superior Vena Cava, Guidance (ICD-10-PCS; 2017-09-17)
PROC: B518ZZA Fluoroscopy of Superior Vena Cava, Guidance (ICD-10-PCS; 2017-09-17)
PROC: 0HBCXZX Excision of Left Upper Arm Skin, External Approach, Diagnostic (ICD-10-PCS; 2017-09-26)
DX: T87.44 Infection of amputation stump, left lower extremity (principal); N18.6 End stage renal disease; J69.0 Pneumonitis due to inhalation of food and vomit; I12.0 Hypertensive chronic kidney disease with stage 5 chronic kidney disease or end stage renal disease; I96 Gangrene, not elsewhere classified; M86.9 Osteomyelitis, unspecified; B96.5 Pseudomonas (aeruginosa) (mallei) (pseudomallei) as the cause of diseases classified elsewhere; F14.10 Cocaine abuse, uncomplicated; E83.42 Hypomagnesemia; I73.9 Peripheral vascular disease, unspecified; D50.9 Iron deficiency anemia, unspecified; D63.8 Anemia in other chronic diseases classified elsewhere; M32.9 Systemic lupus erythematosus, unspecified; K21.9 Gastro-esophageal reflux disease without esophagitis; R94.31 Abnormal electrocardiogram [ECG] [EKG]; R00.0 Tachycardia, unspecified; I77.6 Arteritis, unspecified; L98.499 Non-pressure chronic ulcer of skin of other sites with unspecified severity; L27.0 Generalized skin eruption due to drugs and medicaments taken internally; T36.0X5A Adverse effect of penicillins, initial encounter; Y92.230 Patient room in hospital as the place of occurrence of the external cause; Z89.612 Acquired absence of left leg above knee; Z89.611 Acquired absence of right leg above knee
CPT/HCPCS: 00400; 01232; 36415; 36430; 36569; 71010; 76937; 77001; 80048; 80053; 80061; 80076; 80307; 81001; 83735; 84100; 85025; 85652; 86140; 86850; 86900; 86901; 86920; 87040; 87070; 87075; 87077; 87186; 87205; 88305; 88311; 88312; 93005; 93010; 93306; A6266; C1751; J0360; J1170; J1200; J1642; J1885; J2250; J2270; J2405; J2543; J2704; J2920; J2930; J3010; J3490; J7030; J7512; P9016

== ENCOUNTER 2019-10-22 19:50 | Inpatient (IN) | payer MEDICAID ==
--- NOTE | 2019-10-22 22:04 | ER Document Report ---
ED General - General Chief Complaint: Hand Swelling Stated Complaint: FINGER PAIN Time Seen by Provider: 10/22/19 20:51 Primary Care Provider: LETICIA FARRIS MD [Primary Care Provider] - Follow up as needed TRAVEL OUTSIDE OF THE [place] IN LAST 30 DAYS: No - HPI Onset: Other - over the last several days Onset/Duration: Gradual Quality of pain: Burning, Fullness, Pressure Severity: Severe Pain Level: 5 Associated symptoms: Other - right middle finger swelling Exacerbated by: Other - movement of her right middle finger Relieved by: Other - keeping her right middle finger still Similar symptoms previously: No Recently seen / treated by doctor: No Notes: 44 year old female with a history of Lupus, CKD, HTN, and Severe Peripheral Vascular Disease resulting in bilateral AKAs here for several days of painful swelling of her right middle finger which seems to be getting worse. The patient says she hit her finger on something about a week ago causing a minor abrasion just proximal to the nail bed. She then started to develop painful swelling on the extensor surface of her right middle finger. The patient can flex her finger but it pains her to do so. - Related Data Allergies/Adverse Reactions: amoxicillin [From Augmentin] Allergy (Verified 06/09/17 15:51) Generalized Itching cephalexin [From Keflex] Allergy (Verified 06/09/17 15:51) clavulanic acid [From Augmentin] Allergy (Verified 06/09/17 15:51) sulfamethoxazole [From Septra] Allergy (Verified 06/09/17 15:51) trimethoprim [From Septra] Allergy (Verified 06/09/17 15:51) Home Medications: losartan 50 mg qday. gabapentin 400 mg tid. toradol 10 mg. prednisone 20 mg qday. prozac 40 mg po qday Past Medical History - Social History Smoking Status: Current Every Day Smoker Frequency of alcohol use: None Drug Abuse: None Lives with: Alone Family History: Reviewed & Not Pertinent, Hypertension Patient has suicidal ideation: No Patient has homicidal ideation: No - Medical History Notes: Lupus - Past Medical History Cardiac Medical History: Reports: Hx Hypertension Renal/ Medical History: Reports: Other - CKD. 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, Other - Previous wound debridements to bilateral knees, surgery for gastric ulcer - Immunizations Immunizations up to date: Yes Hx Diphtheria, Pertussis, Tetanus Vaccination: Yes Review of Systems - Review of Systems Musculoskeletal: Other - right middle finger is swollen, tender, erythematous, and warm on the extensor surface. Patient is able to flex his finger but it pains him to do so. No tenderness along the flexor tendon on palpation. Skin: Other - redness and warmth of right middle finger with underlying swelling -: Yes All other systems reviewed and negative Physical Exam - Vital signs Vitals: Temp Pulse Resp BP Pulse Ox 99.2 F 100 20 111/73 100 10/22/19 20:05 10/22/19 20:05 10/22/19 20:05 10/22/19 20:05 10/22/19 20:05 - Notes Notes: GENERAL: Well-appearing, well-nourished and in no acute distress. HEAD: Atraumatic, normocephalic. EYES: Pupils equal round and reactive to light, extraocular movements intact, sclera anicteric, conjunctiva are normal. ENT: TMs normal, nares patent, oropharynx clear without exudates. Moist mucous membranes. NECK: Normal range of motion, supple without lymphadenopathy or JVD. LUNGS: Breath sounds clear to auscultation bilaterally and equal. No wheezes rales or rhonchi. HEART: Regular rate and rhythm without murmurs, rubs or gallops. ABDOMEN: Soft, nontender, normoactive bowel sounds. No guarding, no rebound. No masses appreciated. EXTREMITIES: Bilateral lower extremity amputations. Right middle finger is very tender, swollen, erythematous, fluctuant and warm on the extensor surface from DIP to MCP. Patient is able to flex her right middle finger but it pains her to do so. No tenderness along the flexor tendon itself on palpation. Normal range of motion, no pitting or edema. No clubbing or cyanosis. NEUROLOGICAL: Cranial nerves II through XII grossly intact. Normal speech, normal gait. PSYCH: Normal mood, normal affect. SKIN: Warm, Dry, normal turgor, no rashes or lesions noted. See Extremities portion of exam for finger details Course - Re-evaluation Re-evalutation: 10/23/19 00:19 The patient clearly has an infected right middle finger on the extensor surface which is rather impressive. I consulted the Orthopedic Surgeon telephone lines repairer (Dr. Snyder) who is a Hand Surgeon and he recommended admission to the Hospitalist and Surgical Drainage. The Orthopedic Surgeon did not want systemic antibiotics since the patient is not systemically ill. The patient has low grade temps here in the ER and she is acidotic. Will treat with fluids and admit. Obtaining a lactic acid and VBG as well. 10/23/19 00:23 - Vital Signs Vital signs: Temp Pulse Resp BP Pulse Ox 99.2 F 100 20 111/73 100 10/22/19 20:05 10/22/19 20:05 10/22/19 20:05 10/22/19 20:05 10/22/19 20:05 - Laboratory Result Diagrams: 10/22/19 22:55 10/22/19 22:55 Laboratory results interpreted by me: 10/22/19 10/22/19 10/22/19 22:55 22:55 22:55 WBC 3.6 L Hgb 11.8 L Hct 35.2 L RDW 15.7 H Monocytes % (Manual) 1 L Abs Monocytes (Manual) 0.0 L ESR 73 H PT 16.1 H Sodium 136.2 L Carbon Dioxide 12 L Anion Gap 20 H C-Reactive Protein 157.8 H - Diagnostic Test Radiology reviewed: Image reviewed Radiology results interpreted by me: 10/23/19 00:24 soft tissue swelling with no obvious bone involvement Discharge - Discharge Clinical Impression: Finger infection, Acidosis Condition: Fair Disposition: ADMITTED INPATIENT Admitting Provider: Vargas (Hospitalist) Unit Admitted: Medical Floor Referrals: LETICIA FARRIS MD [Primary Care Provider] - Follow up as needed
[2019-10-22 23:18] LABS: HEMATOCRIT 35.2 % (36.0-47.0); HEMOGLOBIN 11.8 g/dL (12.0-15.5); MEAN CORPUSCULAR HEMOGLOBIN 27.4 pg (27.0-33.4); MEAN CORPUSCULAR HGB CONC 33.5 g/dL (32.0-36.0); MEAN CORPUSCULAR VOLUME 82 fl (80-97); PLATELET COUNT 221 10^3/uL (150-450); RED BLOOD COUNT 4.31 10^6/uL (3.72-5.28); RED CELL DISTRIBUTION WIDTH 15.7 % (11.5-14.0); WHITE BLOOD COUNT 3.6 10^3/uL (4.0-10.5)
[2019-10-22 23:37] LABS: BLOOD UREA NITROGEN 16 mg/dL (7-20); CALCIUM 8.7 mg/dL (8.4-10.2); GLUCOSE 93 mg/dL (75-110); INTERNATIONAL RATION (INR) 1.28; POTASSIUM 4.1 mmol/L (3.6-5.0); PROTHROMBIN TIME 16.1 SEC (11.4-15.4)
[2019-10-22 23:40] LABS: ABSOLUTE LYMPHOCYTES# (MANUAL) 1.2 10^3/uL (0.5-4.7); BASOPHILS % (MANUAL) 0 % (0-2); CARBON DIOXIDE 12 mmol/L (22-30); CHLORIDE 104 mmol/L (98-107); EOSINOPHILS % (MANUAL) 1 % (0-6); LYMPHOCYTES % (MANUAL) 29 % (13-45); MONOCYTES % (MANUAL) 1 % (3-13); SEGMENTED NEUTROPHILS % (MAN) 65 % (42-78); TOTAL CELLS COUNTED 100
[2019-10-22 23:41] LABS: ANISOCYTOSIS SLIGHT; TOXIC GRANULATION 1+
[2019-10-22 23:42] LABS: PLATELET COMMENT ADEQUATE; POIKILOCYTOSIS 1+; ROULEAUX 1+; TEAR DROP CELLS 1+
[2019-10-22 23:52] LABS: ANION GAP 20 (5-19); C-REACTIVE PROTEIN 157.8 mg/L (<10.0)
[2019-10-22 23:59] LABS: ERYTHROCYTE SEDIMENTATION RATE 73 mm/hr (0-20)
[2019-10-23] MEDS ORDERED: IPRATROPIUM/ALBUTEROL 0.5-2.5 MG/3 ML AMPUL NEB PRN (00:10)
[2019-10-23] MEDS ORDERED: MAG HYDROX/AL HYDROX/SIMETH SUSP 30 ML UDCUP PO PRN (00:10)
[2019-10-23] MEDS ORDERED: NORMAL SALINE 1000 ML 1,000 ML IV ONE ×2 (00:14→00:21)
[2019-10-23] MEDS: ACETAMINOPHEN 325 MG TABLET PO PRN ×3 (00:56→16:09)
[2019-10-23 01:00] LABS: VENOUS BLOOD BASE EXCESS -7.6 mmol/L; VENOUS BLOOD HCO3 14.5 mmol/L (20-32); VENOUS BLOOD PCO2 21.8 mmHg (35-63); VENOUS BLOOD PH 7.44 (7.30-7.42)
--- NOTE | 2019-10-23 01:05 | RADIOLOGY REPORT (SQ) ---
Right third finger three view on 10/23/2019 at 12:22 AM CLINICAL INDICATION: Right third finger swollen and infected, evaluate for osteomyelitis COMPARISON: None FINDINGS: There is massive soft tissue swelling of the third finger especially dorsally. There is no radiopaque foreign body. There are no fractures. Visualized joints are well aligned. No definite plain radiographic evidence of osteomyelitis is noted. No air is noted in the soft tissues to suggest fasciitis. IMPRESSION: Marked soft tissue swelling with no acute bony abnormality.
[2019-10-23 01:31] LABS: URINE AMPHETAMINES SCREEN NEGATIVE; URINE BARBITURATES SCREEN NEGATIVE; URINE BENZODIAZEPINES SCREEN NEGATIVE; URINE METHADONE SCREEN NEGATIVE; URINE PHENCYCLIDINE SCREEN NEGATIVE
[2019-10-23 01:34] LABS: URINE COCAINE SCREEN UNCONFIRMED POSITIVE; URINE MARIJUANA (THC) SCREEN UNCONFIRMED POSITIVE
[2019-10-23] MEDS ORDERED: THIAMINE HCL 100 MG TABLET PO ONE (03:00)
--- NOTE | 2019-10-23 04:45 | PDOC H&P ---
History of Present Illness Admission Date/PCP: 10/23/19 00:29 LETICIA FARRIS MD Patient complains of: Right middle finger swelling and pain History of Present Illness: TAYLOR MACKEY is a 44 year old female with a past medical history of lupus, peripheral vascular disease, bilateral BKA, heavy alcoholism, cocaine and marijuana abuse. She presents with 4 to 5 days of pain and swelling to her right middle finger which began as an abrasion at the nailbed. She used hydrogen peroxide, without improvement she seeks evaluation in the emergency department where she is found to have a erythemic, edematous, tender right middle finger without tendon pain. Orthopedic surgeon Dr. Jay is consulted recommending admission for OR evaluation. 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, Other - Previous wound debridements to bilateral knees, surgery for gastric ulcer Social History Information Source: Patient, [facility] Records Lives with: Alone Smoking Status: Current Every Day Smoker Frequency of Alcohol Use: Heavy Hx Recreational Drug Use: Yes Drugs: Cocaine - Crack cocaine, Marijuana Hx Prescription Drug Abuse: No - patient denies - Advance Directive Resuscitation Status: Full Code Family History Family History: Hypertension Parental Family History Reviewed: Yes Children Family History Reviewed: Yes Sibling(s) Family History Reviewed.: Yes Medication/Allergy Home Medications: Acetaminophen [Pain Relief] 650 mg PO Q6HP PRN 08/16/17 Fluoxetine HCl [Prozac 20 mg Capsule] 60 mg PO DAILY 08/16/17 Gabapentin 1,200 mg PO Q8 08/16/17 Ibuprofen [Motrin 400 mg Tablet] 400 mg PO Q8 08/16/17 Trazodone HCl 100 mg PO QHS 08/16/17 Multivitamin [Tab-A-Chrissy (Multiple Vitamin) Tablet] 1 tab PO DAILY 09/11/17 Allergies/Adverse Reactions: amoxicillin [From Augmentin] Allergy (Verified 06/09/17 15:51) Generalized Itching cephalexin [From Keflex] Allergy (Verified 06/09/17 15:51) clavulanic acid [From Augmentin] Allergy (Verified 06/09/17 15:51) sulfamethoxazole [From Septra] Allergy (Verified 06/09/17 15:51) trimethoprim [From Septra] Allergy (Verified 06/09/17 15:51) Review of Systems Constitutional: ABSENT: chills, fever(s), headache(s), weight gain, weight loss Eyes: ABSENT: visual disturbances Ears: ABSENT: hearing changes Cardiovascular: ABSENT: chest pain, dyspnea on exertion, edema, orthropnea, palpitations Respiratory: ABSENT: cough, hemoptysis Gastrointestinal: ABSENT: abdominal pain, constipation, diarrhea, hematemesis, hematochezia, nausea, vomiting Genitourinary: ABSENT: dysuria, hematuria Musculoskeletal: ABSENT: joint swelling Integumentary: ABSENT: rash, wounds Neurological: ABSENT: abnormal gait, abnormal speech, confusion, dizziness, focal weakness, syncope Psychiatric: ABSENT: anxiety, depression, homidical ideation, suicidal ideation Endocrine: ABSENT: cold intolerance, heat intolerance, polydipsia, polyuria Hematologic/Lymphatic: ABSENT: easy bleeding, easy bruising Physical Exam Vital Signs: Temp Pulse Resp BP Pulse Ox 98.1 F 93 15 114/74 100 10/23/19 03:01 10/23/19 01:03 10/23/19 03:01 10/23/19 03:01 10/23/19 03:01 Intake & Output 10/21/19 10/22/19 10/23/19 11:59 11:59 11:59 Intake Total 1000 Balance 1000 Weight 38.5 kg General appearance: PRESENT: cooperative, disheveled, mild distress, well-devel oped, well-nourished Head exam: PRESENT: atraumatic, normocephalic Eye exam: PRESENT: conjunctiva pink, EOMI, PERRLA. ABSENT: scleral icterus Ear exam: PRESENT: normal external ear exam Mouth exam: PRESENT: moist, tongue midline Neck exam: ABSENT: carotid bruit, JVD, lymphadenopathy, thyromegaly Respiratory exam: PRESENT: crackles, prolonged expiratory phas. ABSENT: accessory muscle use, rales, rhonchi, wheezes Cardiovascular exam: PRESENT: RRR. ABSENT: diastolic murmur, rubs, systolic murmur Pulses: PRESENT: normal dorsalis pedis pul Vascular exam: PRESENT: normal capillary refill GI/Abdominal exam: PRESENT: normal bowel sounds, soft. ABSENT: distended, guarding, mass, organolmegaly, rebound, tenderness Rectal exam: PRESENT: deferred Extremities exam: PRESENT: tenderness - erythemic, edematous, tender right middle finger without tendon pain Neurological exam: PRESENT: alert, awake, oriented to person, oriented to place, oriented to time, oriented to situation, CN II-XII grossly intact. ABSENT: motor sensory deficit Psychiatric exam: PRESENT: appropriate affect, normal mood. ABSENT: homicidal ideation, suicidal ideation Skin exam: PRESENT: erythema, intact, warm, other - erythemic, edematous, tender right middle finger without tendon pain. ABSENT: cyanosis, rash Results Laboratory Results: 10/22/19 22:55 10/22/19 22:55 10/22/19 10/22/19 10/23/19 22:55 22:55 00:50 WBC 3.6 L RBC 4.31 Hgb 11.8 L Hct 35.2 L MCV 82 MCH 27.4 MCHC 33.5 RDW 15.7 H Plt Count 221 Seg Neutrophils % Not Reportable VBG pH VBG pCO2 VBG HCO3 VBG Base Excess Sodium 136.2 L Potassium 4.1 Chloride 104 Carbon Dioxide 12 L Anion Gap 20 H BUN 16 Creatinine 0.56 Est GFR ( Amer) > 60 Glucose 93 Lactic Acid 1.2 Calcium 8.7 C-Reactive Protein 157.8 H 10/23/19 00:50 WBC RBC Hgb Hct MCV MCH MCHC RDW Plt Count Seg Neutrophils % VBG pH 7.44 H VBG pCO2 21.8 L VBG HCO3 14.5 L VBG Base Excess -7.6 Sodium Potassium Chloride Carbon Dioxide Anion Gap BUN Creatinine Est GFR ( Amer) Glucose Lactic Acid Calcium C-Reactive Protein Impressions: Finger X-Ray 10/23/19 00:03 IMPRESSION: Marked soft tissue swelling with no acute bony abnormality. Assessment and Plan - Diagnosis (1) Cellulitis, finger Is this a current diagnosis for this admission?: Yes Plan: Admission to telemetry for underlying comorbidity, no systemic symptoms, orthopedic surgery consulted (2) Alcohol dependence Is this a current diagnosis for this admission?: Yes Plan: Thiamine, Ativan as needed (3) Crack cocaine use Is this a current diagnosis for this admission?: Yes Plan: Supportive care and education (4) Tobacco abuse Is this a current diagnosis for this admission?: Yes Plan: Cessation counseling performed, nicotine replacement options discussed - Time Time Spent with patient: 25-34 minutes - Inpatient Certification Medical Necessity: Need Close Monitoring Due to Risk of Patient Decompensation
[2019-10-23] MEDS: HEPARIN SOD (PORCINE) 5,000 UNIT/ML 1 ML VIAL SUBCUT SCH ×3 (06:56→21:34)
--- NOTE | 2019-10-23 07:59 | PDOC CONSULTATION ---
Consultation Consult Date: 10/23/19 Provider Consulted: SHANI EVANS History of Present Illness Admission Date/PCP: 10/23/19 00:29 LETICIA FARRIS MD Patient complains of: Pain right middle finger History of Present Illness: TAYLOR MACKEY is a 44 year old female Developed pain and swelling a few weeks ago to her right middle finger. She states originally injury occurred when she hit her finger. Developed a small wound along the dorsum of the finger and began having swelling. She states over the past 24 hours the swelling has worsened. No significant improvement with current IV antibiotics. Pain worse with motion. Admits to history of crack use in the past few days. 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, Other - Previous wound debridements to bilateral knees, surgery for gastric ulcer Social History Lives with: Alone Smoking Status: Current Every Day Smoker Frequency of Alcohol Use: Heavy Hx Recreational Drug Use: Yes Drugs: Cocaine - Crack cocaine, Marijuana Hx Prescription Drug Abuse: No - patient denies - Advance Directive Resuscitation Status: Full Code Family History Family History: Hypertension Parental Family History Reviewed: No Children Family History Reviewed: No Sibling(s) Family History Reviewed.: No Medication/Allergy Home Medications: Acetaminophen [Pain Relief] 650 mg PO Q6HP PRN 08/16/17 Fluoxetine HCl [Prozac 20 mg Capsule] 60 mg PO DAILY 08/16/17 Gabapentin 1,200 mg PO Q8 08/16/17 Ibuprofen [Motrin 400 mg Tablet] 400 mg PO Q8 08/16/17 Trazodone HCl 100 mg PO QHS 08/16/17 Multivitamin [Tab-A-Chrissy (Multiple Vitamin) Tablet] 1 tab PO DAILY 09/11/17 Allergies/Adverse Reactions: amoxicillin [From Augmentin] Allergy (Verified 06/09/17 15:51) Generalized Itching cephalexin [From Keflex] Allergy (Verified 06/09/17 15:51) clavulanic acid [From Augmentin] Allergy (Verified 06/09/17 15:51) sulfamethoxazole [From ] Allergy (Verified 06/09/17 15:51) trimethoprim [From Septra] Allergy (Verified 06/09/17 15:51) Review of Systems Constitutional: PRESENT: as per HPI, chills, fever(s). ABSENT: headache(s), weight gain, weight loss Eyes: ABSENT: visual disturbances Ears: ABSENT: hearing changes Cardiovascular: ABSENT: chest pain, dyspnea on exertion, edema, orthropnea, palpitations Respiratory: ABSENT: cough, hemoptysis Gastrointestinal: ABSENT: abdominal pain, constipation, diarrhea, hematemesis, hematochezia, nausea, vomiting Genitourinary: ABSENT: dysuria, hematuria Integumentary: ABSENT: rash, wounds Neurological: ABSENT: abnormal gait, abnormal speech, confusion, dizziness, focal weakness, syncope Psychiatric: ABSENT: anxiety, depression, homidical ideation, suicidal ideation Endocrine: ABSENT: cold intolerance, heat intolerance, menstrual abnormalities, polydipsia, polyuria Hematologic/Lymphatic: ABSENT: easy bleeding, easy bruising, lymphadenopathy Physical Exam Vital Signs: Temp Pulse Resp BP Pulse Ox 98.1 F 93 20 122/73 100 10/23/19 03:01 10/23/19 01:03 10/23/19 07:01 10/23/19 07:01 10/23/19 07:01 Intake & Output 10/22/19 10/23/19 10/24/19 06:59 06:59 06:59 Intake Total 1000 Balance 1000 Weight 38.5 kg General appearance: PRESENT: no acute distress, well-developed, well-nourished Head exam: PRESENT: atraumatic, normocephalic Eye exam: PRESENT: conjunctiva pink, EOMI, PERRLA. ABSENT: scleral icterus Ear exam: PRESENT: normal external ear exam Mouth exam: PRESENT: moist, tongue midline Neck exam: PRESENT: full ROM. ABSENT: carotid bruit, JVD, lymphadenopathy, thyromegaly Cardiovascular exam: PRESENT: RRR. ABSENT: diastolic murmur, rubs, systolic murmur Pulses: PRESENT: normal dorsalis pedis pul Vascular exam: PRESENT: normal capillary refill GI/Abdominal exam: PRESENT: normal bowel sounds, soft. ABSENT: distended, guarding, mass, organolmegaly, rebound, tenderness Rectal exam: PRESENT: deferred Extremities exam: PRESENT: left AKA, right AKA Musculoskeletal exam: PRESENT: other - Right middle finger: Significant swelling dorsally along the finger consistent with abscess. No tenderness on the flexor sheath volarly. No pain with passive extension. No streaking erythema. Small wound along the dorsum of the distal phalanx at the level of the germinal matrix. Cap refill less than 2 seconds normal skin turgor. Neurological exam: PRESENT: alert, awake, oriented to person, oriented to place, oriented to time, oriented to situation, CN II-XII grossly intact. ABSENT: motor sensory deficit Psychiatric exam: PRESENT: appropriate affect, normal mood. ABSENT: homicidal ideation, suicidal ideation Skin exam: PRESENT: dry, intact, warm. ABSENT: cyanosis, rash Results Laboratory Results: 10/22/19 22:55 10/22/19 22:55 10/22/19 10/22/19 10/23/19 22:55 22:55 00:50 WBC 3.6 L RBC 4.31 Hgb 11.8 L Hct 35.2 L MCV 82 MCH 27.4 MCHC 33.5 RDW 15.7 H Plt Count 221 Seg Neutrophils % Not Reportable VBG pH VBG pCO2 VBG HCO3 VBG Base Excess Sodium 136.2 L Potassium 4.1 Chloride 104 Carbon Dioxide 12 L Anion Gap 20 H BUN 16 Creatinine 0.56 Est GFR ( Amer) > 60 Glucose 93 Lactic Acid 1.2 Calcium 8.7 C-Reactive Protein 157.8 H 10/23/19 00:50 WBC RBC Hgb Hct MCV MCH MCHC RDW Plt Count Seg Neutrophils % VBG pH 7.44 H VBG pCO2 21.8 L VBG HCO3 14.5 L VBG Base Excess -7.6 Sodium Potassium Chloride Carbon Dioxide Anion Gap BUN Creatinine Est GFR ( Amer) Glucose Lactic Acid Calcium C-Reactive Protein Impressions: Finger X-Ray 10/23/19 00:03 IMPRESSION: Marked soft tissue swelling with no acute bony abnormality. Assessment & Plan - Diagnosis (1) Abscess of finger of right hand Is this a current diagnosis for this admission?: Yes Plan: Patient has severe finger abscess to the right middle finger. Given the severity I have recommended operative intervention which includes irrigation and debridement of right middle finger. Given the severity in patient's medical history she is at high risk of developing nonviable sample finger requiring amputation. At this point will proceed with the above procedure. Risk and amberly efits of the surgical procedure have been explained risk including neurovascular is, postoperative pain, recurrent infection necessitating amputation. Patient verbalized understanding consented for surgical procedure.
[2019-10-23] MEDS: KETOROLAC TROMETHAMINE INJ/PF 30 MG/1 ML SDV IV PRN ×3 (08:43→21:32)
[2019-10-23] MEDS: THIAMINE HCL 100 MG TABLET PO SCH (09:49)
[2019-10-23] MEDS: DOCUSATE SODIUM 100 MG CAPSULE PO SCH ×2 (09:49→17:09)
[2019-10-23] MEDS ORDERED: INFLUENZA QUAD (6MOS+) 2019-20 VAC 0.5 ML SYR IM ONE (10:55)
[2019-10-23] MEDS ORDERED: FENTANYL CITRATE INJ/PF 100 MCG/2 ML AMPUL ONE (11:07)
[2019-10-23] MEDS ORDERED: PROPOFOL INJ 200 MG/20 ML VIAL IV ONE (11:08)
[2019-10-23] MEDS ORDERED: MIDAZOLAM 2 MG/2 ML INJ ONE (11:08)
[2019-10-23] MEDS ORDERED: MORPHINE SULFATE 10 MG/ML INJ IV PRN (11:14)
[2019-10-23] MEDS ORDERED: DIPHENHYDRAMINE HCL 50 MG/ML VIAL IV PRN (11:14)
[2019-10-23] MEDS ORDERED: FENTANYL CITRATE INJ/PF 100 MCG/2 ML AMPUL IV PRN ×3 (11:14)
[2019-10-23] MEDS ORDERED: PROMETHAZINE HCL INJ 25 MG/1 ML VIAL IV PRN (11:14)
[2019-10-23] MEDS ORDERED: MEPERIDINE HCL/PF INJ 25 MG/1 ML DISP.SYRIN IV PRN (11:14)
[2019-10-23] MEDS ORDERED: LIDOCAINE 1% INJ-PF (10 MG/ML) 30 ML SDV ONE (11:15)
[2019-10-23] MEDS ORDERED: CLINDAMYCIN 600 MG/D5W RTU 600 MG/50 ML RTUPB IV ONE (11:32)
--- NOTE | 2019-10-23 12:24 | Operative Report ---
Operative Report DATE OF SURGERY: 10/23/19 PREOPERATIVE DIAGNOSIS: Right Middle Finger Abscess POSTOPERATIVE DIAGNOSIS: Same OPERATION: Irrigation of the right middle finger abscess, middle finger flexor sheath SURGEON: SHANI EVANS ANESTHESIA: LMAC TISSUE REMOVED OR ALTERED: Aerobic/anaerobic/AFB/fungal COMPLICATIONS: None ESTIMATED BLOOD LOSS: Minimal PROCEDURE: Indication for above procedure: 44-year-old female with swelling and redness to her right middle finger. She states approximately few weeks ago she began having swelling after a injury. However the past 3 hours her swelling has notably worsened. Patient was seen in emergency room at which point decision was made to proceed operative intervention given clinical signs of abscess. Procedure in detail Patient was seen and evaluated in the preoperative holding area. The RIGHT upper extremity was initialized and marked. Patient received clindamycin IV for bacterial prophylaxis after cultures. Patient was taken back to the operative room where transferred to the operative table. Once they were adequately anesthetized a nonsterile tourniquet was placed on the upper extremity. A surgical team debriefing was performed ensuring all instrumentation was available, the surgical procedure was discussed with possible concerns reviewed. A digital block was performed utilizing 20 mL of 1% lidocaine without epinephrine. The upper extremity was prepped with Betadine and draped in a sterile fashion. A timeout was done identifying correct patient, procedure and extremity everyone in attendance agree with this and verbalized no concerns. The extremity was elevated the tourniquet was inflated to 250 mmHg. Small frankie was made in the skin dorsally and epidermis was deroofed throughout the entire digit with copious amount of purulent material expressed. All the nonviable skin was excised leaving a layer of dermis deep. There was an opening along the dorsum just proximal to the nailbed likely nidus for infection. Area did not involve deep into the DIP joint. Cultures were obtained from the opening dorsally at the DIP joint at this point decision was made to proceed with irrigation and debridement of the flexor sheath. Transverse skin incision was made along the DIP joint blunt dissection was performed. Cloudy appearing fluid was expressed from this region thus a second incision was made along the A1 jenniffer blunt dissection performed. Radial and ulnar neurovascular bundles were identified and retracted. A1 jenniffer was released and cloudy appearing fluid encountered within the flexor sheath. This area was irrigated from proximal to distal and distal to proximal to ensure adequate irrigation of the flexor sheath. No remaining purulent or cloudy fluid was expressed after irrigation. Sponge counts, instrument counts, needle counts counts were correct. Patient was then awoken from anesthesia. Transferred from the operating room table to the operating room stretcher. There was no intraoperative complications patient tolerated procedure well stable to PACU. Postoperative plan: Patient will begin on IV clindamycin and Cipro until culture results are complete.
[2019-10-23] MEDS ORDERED: KETOROLAC TROMETHAMINE INJ/PF 30 MG/1 ML SDV ONE (15:16)
[2019-10-23] MEDS: CLINDAMYCIN 600 MG/D5W RTU 600 MG/50 ML RTUPB IV SCH ×2 (16:07→21:34)
[2019-10-23] MEDS: CIPROFLOXACIN 200 MG/D5W RTU 200 MG/100 ML RTUPB IV SCH (21:33)
[2019-10-24] MEDS: CLINDAMYCIN 600 MG/D5W RTU 600 MG/50 ML RTUPB IV SCH ×3 (05:41→21:19)
[2019-10-24] MEDS: KETOROLAC TROMETHAMINE INJ/PF 30 MG/1 ML SDV IV PRN ×3 (05:42→21:18)
[2019-10-24] MEDS: HEPARIN SOD (PORCINE) 5,000 UNIT/ML 1 ML VIAL SUBCUT SCH ×3 (05:42→21:19)
[2019-10-24 07:34] LABS: HEMATOCRIT 28.1 % (36.0-47.0); MEAN CORPUSCULAR HGB CONC 33.4 g/dL (32.0-36.0); MEAN CORPUSCULAR VOLUME 81 fl (80-97); PLATELET COUNT 182 10^3/uL (150-450); RED BLOOD COUNT 3.46 10^6/uL (3.72-5.28); RED CELL DISTRIBUTION WIDTH 15.6 % (11.5-14.0); WHITE BLOOD COUNT 4.4 10^3/uL (4.0-10.5)
[2019-10-24 07:45] LABS: HEMOGLOBIN 9.4 g/dL (12.0-15.5)
[2019-10-24 07:49] LABS: ANION GAP 8 (5-19); BLOOD UREA NITROGEN 11 mg/dL (7-20); CALCIUM 7.9 mg/dL (8.4-10.2); CARBON DIOXIDE 18 mmol/L (22-30); CHLORIDE 111 mmol/L (98-107); GLUCOSE 93 mg/dL (75-110); POTASSIUM 3.5 mmol/L (3.6-5.0)
[2019-10-24 08:39] LABS: ABSOLUTE LYMPHOCYTES# (MANUAL) 0.9 10^3/uL (0.5-4.7); ABSOLUTE MONOCYTES # (MANUAL) 0.3 10^3/uL (0.1-1.4); BASOPHILS % (MANUAL) 0 % (0-2); EOSINOPHILS % (MANUAL) 0 % (0-6); LYMPHOCYTES % (MANUAL) 20 % (13-45); MONOCYTES % (MANUAL) 6 % (3-13); SEGMENTED NEUTROPHILS % (MAN) 74 % (42-78); TOTAL CELLS COUNTED 100
[2019-10-24 08:40] LABS: ANISOCYTOSIS SLIGHT; HYPOCHROMASIA 1+; PLATELET COMMENT ADEQUATE; TARGET CELLS 3+
[2019-10-24] MEDS: CIPROFLOXACIN 200 MG/D5W RTU 200 MG/100 ML RTUPB IV SCH ×2 (10:57→21:19)
[2019-10-24] MEDS: DOCUSATE SODIUM 100 MG CAPSULE PO SCH ×2 (10:58→18:04)
[2019-10-24] MEDS: THIAMINE HCL 100 MG TABLET PO SCH (10:58)
[2019-10-24] MEDS: ACETAMINOPHEN 325 MG TABLET PO PRN ×2 (10:59→18:04)
--- NOTE | 2019-10-24 15:30 | PDOC PROGRESS REPORT ---
Subjective Progress Note for:: 10/24/19 Reason For Visit: FINGER CELLULITIS,SLE CKD 10/24/2019 Cellulitis of the right middle finger. Substance abuse Physical Exam Vital Signs: Temp Pulse Resp BP Pulse Ox 97.5 F 82 16 116/81 100 10/24/19 11:03 10/24/19 13:00 10/24/19 13:00 10/24/19 11:03 10/24/19 13:00 Intake & Output 10/23/19 10/24/19 10/25/19 06:59 06:59 06:59 Intake Total 1000 2860 100 Output Total 300 Balance 1000 2560 100 Weight 38.5 kg General appearance: PRESENT: no acute distress Respiratory exam: PRESENT: clear to auscultation rei. ABSENT: rales, rhonchi, wheezes Cardiovascular exam: PRESENT: RRR. ABSENT: diastolic murmur, rubs, systolic murmur Extremities exam: PRESENT: other - biLateral below the knee amputations Neurological exam: PRESENT: alert, awake, oriented to person, oriented to place, oriented to time, oriented to situation, CN II-XII grossly intact. ABSENT: motor sensory deficit Psychiatric exam: PRESENT: appropriate affect, normal mood. ABSENT: homicidal ideation, suicidal ideation Results Laboratory Results: 10/24/19 06:40 10/24/19 06:40 10/24/19 10/24/19 06:40 06:40 WBC 4.4 RBC 3.46 L Hgb 9.4 L D Hct 28.1 L MCV 81 MCH 27.0 MCHC 33.4 RDW 15.6 H Plt Count 182 Seg Neutrophils % Not Reportable Sodium 136.7 L Potassium 3.5 L Chloride 111 H Carbon Dioxide 18 L Anion Gap 8 BUN 11 Creatinine 0.37 L Est GFR ( Amer) > 60 Glucose 93 Calcium 7.9 L Impressions: Finger X-Ray 10/23/19 00:03 IMPRESSION: Marked soft tissue swelling with no acute bony abnormality. Assessment and Plan - Diagnosis (1) Marijuana abuse Is this a current diagnosis for this admission?: Yes (2) Alcohol abuse Is this a current diagnosis for this admission?: Yes (3) Lupus Is this a current diagnosis for this admission?: Yes (4) Abscess of finger of right hand Is this a current diagnosis for this admission?: Yes (5) Cellulitis, finger Is this a current diagnosis for this admission?: Yes (7) Crack cocaine use Is this a current diagnosis for this admission?: Yes (8) Tobacco abuse Is this a current diagnosis for this admission?: Yes - Plan Summary Summary: 10/24/2019 Temperature 97.8 pulse 76, blood pressure 107/65 O2 sat 99% on room air She had debridement of her third finger right hand yesterday by general surgery, included the flexor sheath. Patient currently on IV clindamycin and Cipro with wound culture growing out gram-positive cocci Using Toradol for her pain White count still normal 4.4 CRP was elevated 157 A1c 5.1 Patient states she lives with her uncle who will help care for her at home Patient will need several more days of IV antibiotics before switching over to p.o.'s Patient appears to be medically stable - Time Time Spent with patient: 25-34 minutes
--- NOTE | 2019-10-24 20:23 | PDOC PROGRESS REPORT ---
Subjective Progress Note for:: 10/24/19 Subjective:: Patient doing well. Still has discomfort when she bumps her finger. Denies fever chills or sweats. Reason For Visit: FINGER CELLULITIS,SLE CKD Physical Exam Vital Signs: Temp Pulse Resp BP Pulse Ox 97.9 F 66 18 134/94 H 100 10/24/19 15:51 10/24/19 15:51 10/24/19 15:51 10/24/19 15:51 10/24/19 15:51 Intake & Output 10/23/19 10/24/19 10/25/19 06:59 06:59 06:59 Intake Total 1000 2860 150 Output Total 300 Balance 1000 2560 150 Weight 38.5 kg Musculoskeletal exam: PRESENT: other - Right middle finger: Dressing removed today. Desquamation of the digit noted. Cap refill less than 2 seconds. Normal skin turgor. Intact flexion/extension of the DIP joint. Limited motion secondary to pain. No tenderness on the flexor sheath. Results Laboratory Results: 10/24/19 06:40 10/24/19 06:40 10/24/19 10/24/19 06:40 06:40 WBC 4.4 RBC 3.46 L Hgb 9.4 L D Hct 28.1 L MCV 81 MCH 27.0 MCHC 33.4 RDW 15.6 H Plt Count 182 Seg Neutrophils % Not Reportable Sodium 136.7 L Potassium 3.5 L Chloride 111 H Carbon Dioxide 18 L Anion Gap 8 BUN 11 Creatinine 0.37 L Est GFR ( Amer) > 60 Glucose 93 Calcium 7.9 L 10/23/19 11:59 Hand - Right AFB Smear Concentration - Final 10/23/19 11:59 Hand - Right Acid Fast Bacilli Smear - Final Impressions: Finger X-Ray 10/23/19 00:03 IMPRESSION: Marked soft tissue swelling with no acute bony abnormality. Assessment & Plan - Diagnosis (1) Abscess of finger of right hand Is this a current diagnosis for this admission?: Yes Plan: Postop day number status post irrigation debridement right middle finger 1. Patient will begin finger range of motion. 2. Twice daily dressing changes with soaks. 3. Continue IV antibiotics transition to p.o. antibiotics once culture results finalized. Once culture results are finalized patient stable for discharge. Follow-up as an outpatient within the 7-10 days - Time Time Spent with patient: Less than 15 minutes
[2019-10-25] MEDS: ACETAMINOPHEN 325 MG TABLET PO PRN ×3 (02:01→15:01)
[2019-10-25] MEDS: HEPARIN SOD (PORCINE) 5,000 UNIT/ML 1 ML VIAL SUBCUT SCH ×3 (05:20→21:30)
[2019-10-25] MEDS: CLINDAMYCIN 600 MG/D5W RTU 600 MG/50 ML RTUPB IV SCH (05:20)
[2019-10-25] MEDS: KETOROLAC TROMETHAMINE INJ/PF 30 MG/1 ML SDV IV PRN (05:20)
--- NOTE | 2019-10-25 06:55 | PDOC PROGRESS REPORT ---
Subjective Progress Note for:: 10/25/19 Subjective:: Patient doing well. Still has discomfort when she bumps her finger. Pain controlled with pain medication. Reason For Visit: FINGER CELLULITIS,SLE CKD Physical Exam Vital Signs: Temp Pulse Resp BP Pulse Ox 98.3 F 70 16 119/68 100 10/24/19 23:49 10/24/19 23:49 10/24/19 23:49 10/24/19 23:49 10/24/19 23:49 Intake & Output 10/23/19 10/24/19 10/25/19 06:59 06:59 06:59 Intake Total 1000 2860 750 Output Total 300 Balance 1000 2560 750 Weight 38.5 kg 42 kg Musculoskeletal exam: PRESENT: other - Right middle finger: Desquamation without recurrent abscess. No tenderness on the flexor sheath. Intact flexion extension of the DIP/PIP joint. Cap refill less than 2 seconds. Normal skin turgor. Hypoesthesia on the distal tip. Results Laboratory Results: 10/24/19 06:40 10/24/19 06:40 10/24/19 10/24/19 06:40 06:40 WBC 4.4 RBC 3.46 L Hgb 9.4 L D Hct 28.1 L MCV 81 MCH 27.0 MCHC 33.4 RDW 15.6 H Plt Count 182 Seg Neutrophils % Not Reportable Sodium 136.7 L Potassium 3.5 L Chloride 111 H Carbon Dioxide 18 L Anion Gap 8 BUN 11 Creatinine 0.37 L Est GFR ( Amer) > 60 Glucose 93 Calcium 7.9 L 10/23/19 11:59 Hand - Right AFB Smear Concentration - Final 10/23/19 11:59 Hand - Right Acid Fast Bacilli Smear - Final Impressions: Finger X-Ray 10/23/19 00:03 IMPRESSION: Marked soft tissue swelling with no acute bony abnormality. Assessment & Plan - Diagnosis (1) Abscess of finger of right hand Is this a current diagnosis for this admission?: Yes Plan: Postop day #2 status post irrigation debridement right middle finger 1. Patient will begin finger range of motion. 2. Twice daily dressing changes with soaks. 3. Continue IV antibiotics transition to p.o. antibiotics once culture results finalized. Once culture results are finalized patient stable for discharge. Follow-up as an outpatient within the 7-10 days - Time Time Spent with patient: Less than 15 minutes
[2019-10-25] MEDS: THIAMINE HCL 100 MG TABLET PO SCH (09:41)
[2019-10-25] MEDS: DOCUSATE SODIUM 100 MG CAPSULE PO SCH ×2 (09:42→17:30)
[2019-10-25] MEDS: CIPROFLOXACIN HCL 500 MG TABLET PO SCH ×2 (09:42→21:26)
[2019-10-25] MEDS: TRAMADOL HCL 50 MG TABLET PO PRN ×2 (10:47→18:53)
[2019-10-25] MEDS: CLINDAMYCIN HCL 150 MG CAPSULE PO SCH ×2 (11:21→17:30)
--- NOTE | 2019-10-25 12:39 | PDOC PROGRESS REPORT ---
Subjective Progress Note for:: 10/25/19 Reason For Visit: FINGER CELLULITIS,SLE CKD 10/25/2019 Abscess finger, substance abuse Physical Exam Vital Signs: Temp Pulse Resp BP Pulse Ox 97.7 F 65 15 134/75 H 100 10/25/19 07:58 10/25/19 07:58 10/25/19 07:58 10/25/19 07:58 10/25/19 07:58 Intake & Output 10/24/19 10/25/19 10/26/19 06:59 06:59 06:59 Intake Total 2860 750 Output Total 300 Balance 2560 750 Weight 42 kg General appearance: PRESENT: no acute distress Respiratory exam: PRESENT: clear to auscultation rei. ABSENT: rales, rhonchi, wheezes Cardiovascular exam: PRESENT: RRR. ABSENT: diastolic murmur, rubs, systolic murmur Extremities exam: PRESENT: other - New bandage with no evidence of drainage through the bandage Neurological exam: PRESENT: alert, awake, oriented to person, oriented to place, oriented to time, oriented to situation, CN II-XII grossly intact. ABSENT: motor sensory deficit Psychiatric exam: PRESENT: appropriate affect, normal mood. ABSENT: homicidal ideation, suicidal ideation Results Laboratory Results: 10/24/19 06:40 10/24/19 06:40 10/23/19 11:59 Finger - Right Middle Finger Gram Stain - Final 10/23/19 11:59 Finger - Right Middle Finger Wound Culture - Final Staphylococcus Aureus No Anaerobic Organisms 10/23/19 11:59 Hand - Right AFB Smear Concentration - Final 10/23/19 11:59 Hand - Right Acid Fast Bacilli Smear - Final Impressions: Finger X-Ray 10/23/19 00:03 IMPRESSION: Marked soft tissue swelling with no acute bony abnormality. Assessment and Plan - Diagnosis (1) Marijuana abuse Is this a current diagnosis for this admission?: Yes (2) Alcohol abuse Is this a current diagnosis for this admission?: Yes (3) Lupus Is this a current diagnosis for this admission?: Yes (4) Abscess of finger of right hand Is this a current diagnosis for this admission?: Yes (5) Cellulitis, finger Is this a current diagnosis for this admission?: Yes (7) Crack cocaine use Is this a current diagnosis for this admission?: Yes (8) Tobacco abuse Is this a current diagnosis for this admission?: Yes - Plan Summary Summary: 10/24/2019 Temperature 97.8 pulse 76, blood pressure 107/65 O2 sat 99% on room air She had debridement of her third finger right hand yesterday by general surgery, included the flexor sheath. Patient currently on IV clindamycin and Cipro with wound culture growing out gram-positive cocci Using Toradol for her pain White count still normal 4.4 CRP was elevated 157 A1c 5.1 Patient states she lives with her uncle who will help care for her at home Patient will need several more days of IV antibiotics before switching over to p.o.'s Patient appears to be medically stable 10/25/2019 Remains afebrile, blood pressure remained stable Labs appear to be grossly normal with the exception of the CRP Patient currently on Cipro 500 mg p.o. twice daily and clindamycin 300 mg p.o. every 6 hours. Both of these drugs appear to be appropriate for her wound culture growing staph, final report Blood cultures are negative x48 hours Anticipate discharge to home tomorrow on these antibiotics until seen by orthopedics in 7 to 10 days I will not discharge patient home on any pain medication other than [id number] medication - Time Time Spent with patient: 25-34 minutes
[2019-10-26] MEDS: ACETAMINOPHEN 325 MG TABLET PO PRN ×2 (02:21→11:30)
[2019-10-26] MEDS: CLINDAMYCIN HCL 150 MG CAPSULE PO SCH ×3 (02:21→11:31)
[2019-10-26] MEDS: TRAMADOL HCL 50 MG TABLET PO PRN (06:44)
[2019-10-26] MEDS: HEPARIN SOD (PORCINE) 5,000 UNIT/ML 1 ML VIAL SUBCUT SCH (06:45)
--- NOTE | 2019-10-26 09:42 | Progress Note ---
Provider Note Provider Note: 10/26/2019 Patient is medically stable temperature 97.7, pulse 70 blood pressure 155/94 I would like to discharge patient home today on p.o. antibiotics and have patient follow-up with orthopedics at their recommendation, concerning wound care. Will await orthopedics opinion today concerning potential discharge Have discussed this with the patient. No pain medicines will be written by hospitalist service
[2019-10-26] MEDS: CIPROFLOXACIN HCL 500 MG TABLET PO SCH (09:43)
[2019-10-26] MEDS: DOCUSATE SODIUM 100 MG CAPSULE PO SCH (09:43)
[2019-10-26] MEDS: THIAMINE HCL 100 MG TABLET PO SCH (09:43)
[2019-10-26 11:40] VITALS: BP 101/54
--- NOTE | 2019-10-26 12:51 | PDOC DISCHARGE SUMMARY ---
Impression - Admit/DC Date/PCP Admission Date/Primary Care Provider: 10/23/19 00:29 LETICIA FARRIS MD Discharge Date: 10/26/19 - Discharge Diagnosis (1) Marijuana abuse Is this a current diagnosis for this admission?: Yes (2) Alcohol abuse Is this a current diagnosis for this admission?: Yes (3) Lupus Is this a current diagnosis for this admission?: Yes (4) Abscess of finger of right hand Is this a current diagnosis for this admission?: Yes (5) Cellulitis, finger Is this a current diagnosis for this admission?: Yes (6) Above knee amputation status Is this a current diagnosis for this admission?: Yes (7) Crack cocaine use Is this a current diagnosis for this admission?: Yes (8) Tobacco abuse Is this a current diagnosis for this admission?: Yes - Assessment Summary: 10/24/2019 Temperature 97.8 pulse 76, blood pressure 107/65 O2 sat 99% on room air She had debridement of her third finger right hand yesterday by general surgery, included the flexor sheath. Patient currently on IV clindamycin and Cipro with wound culture growing out gram-positive cocci Using Toradol for her pain White count still normal 4.4 CRP was elevated 157 A1c 5.1 Patient states she lives with her uncle who will help care for her at home Patient will need several more days of IV antibiotics before switching over to p.o.'s Patient appears to be medically stable 10/25/2019 Remains afebrile, blood pressure remained stable Labs appear to be grossly normal with the exception of the CRP Patient currently on Cipro 500 mg p.o. twice daily and clindamycin 300 mg p.o. every 6 hours. Both of these drugs appear to be appropriate for her wound culture growing staph, final report Blood cultures are negative x48 hours Anticipate discharge to home tomorrow on these antibiotics until seen by orthopedics in 7 to 10 days I will not discharge patient home on any pain medication other than over-the- counter medication 10/26/2019 patient is being discharged home today I wrote for Cipro 500 mg for the next 6 days twice daily and clindamycin 300 mg 4 times daily for the next 6 days Patient was also given instructions concerning wound care and to follow-up with orthopedics in 7-10 days No analgesics were written - Additional Information Resuscitation Status: Full Code Discharge Diet: As Tolerated Discharge Activity: Activity As Tolerated Referrals: SHANI EVANS DO [ACTIVE STAFF] - 11/03/19 8:00 am Prescriptions: Ciprofloxacin HCl [Cipro 500 mg Tablet] 500 mg PO Q12 6 Days #12 tablet Clindamycin HCl [Cleocin 150 mg Capsule] 300 mg PO Q6 6 Days #48 capsule Home Medications: Acetaminophen [Tylenol 325 mg Tablet] 650 mg PO Q4HP PRN tablet 10/26/19 Ciprofloxacin HCl [Cipro 500 mg Tablet] 500 mg PO Q12 6 Days #12 tablet 10/26/19 Clindamycin HCl [Cleocin 150 mg Capsule] 300 mg PO Q6 6 Days #48 capsule 10/26/19 History of Present Illiness History of Present Illness: TAYLOR MACKEY is a 44 year old female Physical Exam Vital Signs: Temp Pulse Resp BP Pulse Ox 98.2 F 56 L 16 101/54 L 100 10/26/19 11:37 10/26/19 11:37 10/26/19 11:37 10/26/19 11:37 10/26/19 11:37 Intake & Output 10/25/19 10/26/19 10/27/19 06:59 06:59 06:59 Intake Total 750 1065 Output Total 50 Balance 750 1015 Weight 42 kg 41.6 kg Results Laboratory Results: WBC 4.4 10^3/uL (4.0-10.5) 10/24/19 06:40 RBC 3.46 10^6/uL (3.72-5.28) L 10/24/19 06:40 Hgb 9.4 g/dL (12.0-15.5) L D 10/24/19 06:40 Hct 28.1 % (36.0-47.0) L 10/24/19 06:40 MCV 81 fl (80-97) 10/24/19 06:40 MCH 27.0 pg (27.0-33.4) 10/24/19 06:40 MCHC 33.4 g/dL (32.0-36.0) 10/24/19 06:40 RDW 15.6 % (11.5-14.0) H 10/24/19 06:40 Plt Count 182 10^3/uL (150-450) 10/24/19 06:40 Lymph % (Auto) Not Reportable 10/24/19 06:40 [place] % (Auto) Not Reportable 10/24/19 06:40 Eos % (Auto) Not Reportable 10/24/19 06:40 Baso % (Auto) Not Reportable 10/24/19 06:40 Absolute Neuts (auto) Not Reportable 10/24/19 06:40 Absolute Lymphs (auto) Not Reportable 10/24/19 06:40 Absolute Monos (auto) Not Reportable 10/24/19 06:40 Absolute Eos (auto) Not Reportable 10/24/19 06:40 Absolute Basos (auto) Not Reportable 10/24/19 06:40 Total Counted 100 10/24/19 06:40 Seg Neutrophils % Not Reportable 10/24/19 06:40 Seg Neuts % (Manual) 74 % (42-78) 10/24/19 06:40 Lymphocytes % (Manual) 20 % (13-45) 10/24/19 06:40 Atypical Lymphs % 4 % (0) 10/22/19 22:55 Monocytes % (Manual) 6 % (3-13) 10/24/19 06:40 Eosinophils % (Manual) 0 % (0-6) 10/24/19 06:40 Basophils % (Manual) 0 % (0-2) 10/24/19 06:40 Abs Neuts (Manual) 3.3 10^3/uL (1.7-8.2) 10/24/19 06:40 Abs Lymphs (Manual) 0.9 10^3/uL (0.5-4.7) 10/24/19 06:40 Abs Monocytes (Manual) 0.3 10^3/uL (0.1-1.4) 10/24/19 06:40 Absolute Eos (Manual) 0.0 10^3/uL (0.0-0.6) 10/24/19 06:40 Abs Basophils (Manual) 0.0 10^3/uL (0.0-0.2) 10/24/19 06:40 Toxic Granulation 1+ 10/22/19 22:55 Platelet Comment ADEQUATE 10/24/19 06:40 Hypochromasia 1+ 10/24/19 06:40 Poikilocytosis 1+ 10/22/19 22:55 Anisocytosis SLIGHT 10/24/19 06:40 Target Cells 3+ 10/24/19 06:40 Tear Drop Cells 1+ 10/22/19 22:55 Rouleaux 1+ 10/22/19 22:55 ESR 73 mm/hr (0-20) H 10/22/19 22:55 PT 16.1 SEC (11.4-15.4) H 10/22/19 22:55 INR 1.28 10/22/19 22:55 VBG pH 7.44 (7.30-7.42) H 10/23/19 00:50 VBG pCO2 21.8 mmHg (35-63) L 10/23/19 00:50 VBG HCO3 14.5 mmol/L (20-32) L 10/23/19 00:50 VBG Base Excess -7.6 mmol/L 10/23/19 00:50 Sodium 136.7 mmol/L (137-145) L 10/24/19 06:40 Potassium 3.5 mmol/L (3.6-5.0) L 10/24/19 06:40 Chloride 111 mmol/L (98-107) H 10/24/19 06:40 Carbon Dioxide 18 mmol/L (22-30) L 10/24/19 06:40 Anion Gap 8 (5-19) 10/24/19 06:40 BUN 11 mg/dL (7-20) 10/24/19 06:40 Creatinine 0.37 mg/dL (0.52-1.25) L 10/24/19 06:40 Est GFR ( Amer) > 60 (>60) 10/24/19 06:40 Est GFR (MDRD) Non-Af > 60 (>60) 10/24/19 06:40 Glucose 93 mg/dL (75-110) 10/24/19 06:40 Hemoglobin A1c % 5.1 % (4.7-6.0) 10/24/19 06:40 Lactic Acid 1.2 mmol/L (0.7-2.1) 10/23/19 00:50 Calcium 7.9 mg/dL (8.4-10.2) L 10/24/19 06:40 C-Reactive Protein 157.8 mg/L (<10.0) H 10/22/19 22:55 Urine Opiates Screen NEGATIVE 10/23/19 00:48 Urine Methadone Screen NEGATIVE 10/23/19 00:48 Ur Barbiturates Screen NEGATIVE 10/23/19 00:48 Ur Phencyclidine Scrn NEGATIVE 10/23/19 00:48 Ur Amphetamines Screen NEGATIVE 10/23/19 00:48 U Benzodiazepines Scrn NEGATIVE 10/23/19 00:48 Urine Cocaine Screen UNCONFIRMED POSITIVE 10/23/19 00:48 U Marijuana (THC) Screen UNCONFIRMED POSITIVE 10/23/19 00:48 Impressions: Finger X-Ray 10/23/19 00:03 IMPRESSION: Marked soft tissue swelling with no acute bony abnormality. Stroke Is this a Stroke Patient?: No Acute Heart Failure - Is this a Heart Failure Patient?: No
== END 2019-10-26 12:45 | disposition home or self-care (01) | DRG 602 ==
LOC: ER 19:50 → EH 10-23 00:29 → 4S 10-23 15:40
PROVIDERS: ADMIT Internal Medicine; ATTEND Internal Medicine
PROC: 0HBFXZZ Excision of Right Hand Skin, External Approach (ICD-10-PCS; principal; 2019-10-23 12:15)
PROC: 3E02340 Introduction of Influenza Vaccine into Muscle, Percutaneous Approach (ICD-10-PCS; 2019-10-26)
DX: L02.511 Cutaneous abscess of right hand (principal); N18.6 End stage renal disease; I12.0 Hypertensive chronic kidney disease with stage 5 chronic kidney disease or end stage renal disease; L03.011 Cellulitis of right finger; F12.10 Cannabis abuse, uncomplicated; M32.9 Systemic lupus erythematosus, unspecified; F14.90 Cocaine use, unspecified, uncomplicated; F17.210 Nicotine dependence, cigarettes, uncomplicated; K21.9 Gastro-esophageal reflux disease without esophagitis; F10.20 Alcohol dependence, uncomplicated; D63.1 Anemia in chronic kidney disease; Z60.2 Problems related to living alone; I73.9 Peripheral vascular disease, unspecified; B95.61 Methicillin susceptible Staphylococcus aureus infection as the cause of diseases classified elsewhere; Z23 Encounter for immunization; Z89.619 Acquired absence of unspecified leg above knee; Z89.612 Acquired absence of left leg above knee; Z89.611 Acquired absence of right leg above knee; Z79.899 Other long term (current) drug therapy; Z88.1 Allergy status to other antibiotic agents; Z88.3 Allergy status to other anti-infective agents; Z88.2 Allergy status to sulfonamides; Z82.49 Family history of ischemic heart disease and other diseases of the circulatory system
CPT/HCPCS: 01810; 36415; 80048; 80307; 82803; 83036; 83605; 85025; 85610; 85652; 86140; 87015; 87040; 87070; 87075; 87077; 87101; 87116; 87186; 87205; 87206; 90686; 99284; J0744; J1644; J1885; J2250; J2704; J3010; J3490; J7030

== ENCOUNTER 2020-03-27 06:48 | Emergency (ER) | payer MEDICAID ==
[2020-03-27] MEDS ORDERED: LIDOCAINE 1% INJ-PF (10 MG/ML) 30 ML SDV INJ ONE (10:18)
[2020-03-27 11:05] LABS: HEMATOCRIT 31.5 % (36.0-47.0); HEMOGLOBIN 10.2 g/dL (12.0-15.5); MEAN CORPUSCULAR HEMOGLOBIN 25.6 pg (27.0-33.4); MEAN CORPUSCULAR HGB CONC 32.2 g/dL (32.0-36.0); MEAN CORPUSCULAR VOLUME 80 fl (80-97); PLATELET COUNT 210 10^3/uL (150-450); RED BLOOD COUNT 3.97 10^6/uL (3.72-5.28); RED CELL DISTRIBUTION WIDTH 16.4 % (11.5-14.0); WHITE BLOOD COUNT 3.1 10^3/uL (4.0-10.5)
--- NOTE | 2020-03-27 11:10 | EKG REPORT ---
SEVERITY:- ABNORMAL ECG - SINUS RHYTHM LEFT AXIS DEVIATION ANTERIOR Q WAVES, POSSIBLY DUE TO LVH : Confirmed by: Muna Rodriguez MD 27-Mar-2020 11:09:08
[2020-03-27 11:22] LABS: ALBUMIN 3.9 g/dL (3.5-5.0); ALKALINE PHOSPHATASE 68 U/L (38-126); ANION GAP 11 (5-19); ASPARTATE AMINO TRANSFERASE 35 U/L (14-36); BILIRUBIN,DIRECT 0.1 mg/dL (0.0-0.4); BILIRUBIN,TOTAL 0.6 mg/dL (0.2-1.3); BLOOD UREA NITROGEN 13 mg/dL (7-20); CALCIUM 8.9 mg/dL (8.4-10.2); CARBON DIOXIDE 24 mmol/L (22-30); CHLORIDE 102 mmol/L (98-107); GLUCOSE 87 mg/dL (75-110); POTASSIUM 3.6 mmol/L (3.6-5.0); TOTAL PROTEIN 8.9 g/dL (6.3-8.2)
[2020-03-27 11:30] LABS: ABSOLUTE LYMPHOCYTES# (MANUAL) 0.4 10^3/uL (0.5-4.7); ABSOLUTE MONOCYTES # (MANUAL) 0.2 10^3/uL (0.1-1.4); ANISOCYTOSIS 1+; BASOPHILS % (MANUAL) 0 % (0-2); EOSINOPHILS % (MANUAL) 0 % (0-6); LYMPHOCYTES % (MANUAL) 14 % (13-45); MONOCYTES % (MANUAL) 7 % (3-13); PLATELET COMMENT ADEQUATE; SEGMENTED NEUTROPHILS % (MAN) 79 % (42-78); TOTAL CELLS COUNTED 100; TOXIC VACUOLATION PRESENT
[2020-03-27 11:31] LABS: POIKILOCYTOSIS 2+; TARGET CELLS 2+
--- NOTE | 2020-03-27 13:57 | RADIOLOGY REPORT (SQ) ---
EXAM DESCRIPTION: CT HEAD WITHOUT IMAGES COMPLETED DATE/TIME: 03/27/2020 1:34 pm REASON FOR STUDY: left arm numbness COMPARISON: None. TECHNIQUE: Axial images acquired through the brain without intravenous contrast. Images reviewed wi th bone, brain and subdural windows. Additional sagittal and coronal reconstructions were generated. Images stored on PACS. All CT scanners at this facility use dose modulation, iterative reconstruction, and/or weight based d osing when appropriate to reduce radiation dose to as low as reasonably achievable (ALARA). [facility]: Dose Right [facility]: CareDose [facility]: Dose Right [facility]: Teradose 4D [facility]: [employer] RADIATION DOSE: CT Rad equipment meets quality standard of care and radiation dose reduction techniq ues were employed. CTDIvol: 53.2 mGy. DLP: 964 mGy-cm. LIMITATIONS: None. FINDINGS: There is no acute intracranial hemorrhage, vascular territorial infarct, extra-axial fluid collection, mass effect or midline shift. The odom-white matter differentiation is preserved. Ther e is no effacement of the cerebral sulci or basal subarachnoid cisterns. The caliber the ventricles is concordant with the degree of sulcation. The right maxillary sinus is opacified. The orbits and globes are intact. There is no fracture of t he calvarium. IMPRESSION: No acute intracranial abnormality. EVIDENCE OF ACUTE STROKE: NO. COMMENT: Quality ID # [id number]: Final reports with documentation of one or more dose reduction techniques (e.g., Automated exposure control, adjustment of the mA and/or kV according to patient size, use of iterative reconstruction technique) TECHNICAL DOCUMENTATION: JOB ID: [id number] 2010 [employer]- All Rights Reserved Reading location - IP/workstation name: [email or web address]
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
[2020-03-27 14:56] VITALS: BP 109/65
== END 2020-03-27 14:56 | disposition home or self-care (01) ==
LOC: ER 06:48
DX: F14.10 Cocaine abuse, uncomplicated (principal); F17.200 Nicotine dependence, unspecified, uncomplicated; M32.9 Systemic lupus erythematosus, unspecified; I10 Essential (primary) hypertension; R07.9 Chest pain, unspecified; L03.113 Cellulitis of right upper limb; R20.0 Anesthesia of skin; S30.810A Abrasion of lower back and pelvis, initial encounter; X58.XXXA Exposure to other specified factors, initial encounter; N90.89 Other specified noninflammatory disorders of vulva and perineum
CPT/HCPCS: 93005; 99284; 36415; 85025; 80053; 84484; 70450; 93010; 56405; J3490

== ENCOUNTER 2020-06-11 12:22 | Emergency (ER) | payer MEDICAID, OTHER ==
--- NOTE | 2020-06-11 12:45 | ER Document Report ---
ED Medical Screen (RME) - General Chief Complaint: Skin Problem Stated Complaint: SKIN PROBLEM Time Seen by Provider: 06/11/20 12:39 Mode of Arrival: Medic Information source: Patient Notes: 44-year-old female presented to ED for complaint of pain and open sores to both hands both arms both legs. She has a bilateral amputee. She states that she has ant bites and bugs coming in by her and now she has open draining sores to both arms both hands both legs. She states she lost her right leg due to a spider bite that caused her to lose the leg and her left leg with poor circulation. She states she does smoke 5 cigarettes a day drinks about 3 beers a day and uses crack daily she is alert oriented at this time she will need a bed to get a full exam as this is not appropriate in the triage area. I have greeted and performed a rapid initial assessment of this patient. A comprehensive ED assessment and evaluation of the patient, analysis of test results and completion of medical decision making process will be conducted by an additional ED providers. TRAVEL OUTSIDE OF THE [place] IN LAST 30 DAYS: No - Related Data Allergies/Adverse Reactions: amoxicillin [From Augmentin] Allergy (Verified 06/11/20 12:38) Generalized Itching cephalexin [From Keflex] Allergy (Verified 06/11/20 12:38) clavulanic acid [From Augmentin] Allergy (Verified 06/11/20 12:38) sulfamethoxazole [From Septra] Allergy (Verified 06/11/20 12:38) trimethoprim [From Septra] Allergy (Verified 06/11/20 12:38) Past Medical History - Past Medical History Cardiac Medical History: Reports: Hx Hypertension Renal/ Medical History: Reports: Hx End Stage Renal Disease. 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
[2020-06-11 13:55] LABS: HEMATOCRIT 33.6 % (36.0-47.0); MEAN CORPUSCULAR HEMOGLOBIN 26.9 pg (27.0-33.4); MEAN CORPUSCULAR HGB CONC 32.8 g/dL (32.0-36.0); MEAN CORPUSCULAR VOLUME 82 fl (80-97); PLATELET COUNT 340 10^3/uL (150-450); RED CELL DISTRIBUTION WIDTH 17.7 % (11.5-14.0); WHITE BLOOD COUNT 4.5 10^3/uL (4.0-10.5)
[2020-06-11 14:08] LABS: APPEARANCE,URINE SLIGHTLY-CLOUDY; BILIRUBIN,URINE NEGATIVE (NEGATIVE); COLOR,URINE YELLOW; GLUCOSE, URINE NEGATIVE (NEGATIVE); KETONES,URINE NEGATIVE (NEGATIVE); LEUKOCYTE ESTERASE,URINE TRACE (NEGATIVE); NITRITE,URINE NEGATIVE (NEGATIVE); PROTEIN,URINE NEGATIVE (NEGATIVE); URINE SPECIFIC GRAVITY 1.018
[2020-06-11 14:14] LABS: URINE AMPHETAMINES SCREEN NEGATIVE; URINE BARBITURATES SCREEN NEGATIVE; URINE BENZODIAZEPINES SCREEN NEGATIVE; URINE METHADONE SCREEN NEGATIVE; URINE PHENCYCLIDINE SCREEN NEGATIVE
[2020-06-11 14:17] LABS: ABSOLUTE LYMPHOCYTES# (MANUAL) 1.2 10^3/uL (0.5-4.7); ABSOLUTE MONOCYTES # (MANUAL) 0.4 10^3/uL (0.1-1.4); BASOPHILS % (MANUAL) 1 % (0-2); EOSINOPHILS % (MANUAL) 0 % (0-6); LYMPHOCYTES % (MANUAL) 25 % (13-45); MONOCYTES % (MANUAL) 9 % (3-13); SEGMENTED NEUTROPHILS % (MAN) 64 % (42-78); TOTAL CELLS COUNTED 100
[2020-06-11 14:19] LABS: ANISOCYTOSIS 1+; PLATELET COMMENT ADEQUATE; POIKILOCYTOSIS SLIGHT; TARGET CELLS 2+; TEAR DROP CELLS SLIGHT
[2020-06-11 14:22] LABS: URINE COCAINE SCREEN UNCONFIRMED POSITIVE; URINE MARIJUANA (THC) SCREEN UNCONFIRMED POSITIVE
[2020-06-11] MEDS ORDERED: HYDROMORPHONE HCL INJ/PF 2 MG/ML AMPULE IV ONE (14:31)
--- NOTE | 2020-06-11 14:33 | ER Document Report ---
ED General - General Chief Complaint: Skin Sore(s) Stated Complaint: SKIN PROBLEM Time Seen by Provider: 06/11/20 12:39 Mode of Arrival: Medic Notes: Patient presents with whole body pain "my lupus is flaring up" she says this happens when the weather gets rainy and has been like that for 2 or 3 days. She has a long history of lupus with some skin ulcers that have been healing on the right AKA site in both hands. She also is actively smoking crack cocaine and marijuana last yesterday. She denies other symptoms currently. She was sent by her PA who is worried about her home situation. She lives with family they do not care for her but she is able to transfer toilet cook and do most of her ADLs on her own. She does not want to be hospitalized today. Is not feel that she wants to be placed either. TRAVEL OUTSIDE OF THE [place] IN LAST 30 DAYS: No - Related Data Allergies/Adverse Reactions: amoxicillin [From Augmentin] Allergy (Verified 06/11/20 12:38) Generalized Itching cephalexin [From Keflex] Allergy (Verified 06/11/20 12:38) clavulanic acid [From Augmentin] Allergy (Verified 06/11/20 12:38) sulfamethoxazole [From Septra] Allergy (Verified 06/11/20 12:38) trimethoprim [From Septra] Allergy (Verified 06/11/20 12:38) Home Medications: supposed to be taking: fluoxetine. gabapentin. ketorolac. prednisone. blood pressure medication Past Medical History - General Information source: Patient - Social History Smoking Status: Current Every Day Smoker Chew tobacco use (# tins/day): No Frequency of alcohol use: Heavy Drug Abuse: Cocaine Family History: Hypertension Patient has homicidal ideation: No - Past Medical History Cardiac Medical History: Reports: Hx Hypertension Renal/ Medical History: Reports: Hx End Stage Renal Disease. 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, Other - Previous wound debridements to bilateral knees, surgery for gastric ulcer - Immunizations Immunizations up to date: Yes Hx Diphtheria, Pertussis, Tetanus Vaccination: Yes Review of Systems - Review of Systems Notes: REVIEW OF SYSTEMS GEN: Denies fever, chills, weight loss ENT: Denies sore throat, nasal discharge, ear pain EYES: Denies blurry vision, eye pain, discharge CV: Denies chest pain, palpitations, edema RESP: Denies cough, shortness of breath, wheezing GI: Denies abdominal pain, nausea, vomiting, diarrhea MSK body pain SKIN: Ulcers LYMPH: Denies swollen glands/lymph nodes NEURO: Denies headache, focal weakness or numbness, dizziness PSYCH: Denies depression, suicidal or homicidal ideation PHYSICAL EXAMINATION General: No acute distress, well-nourished Head: Atraumatic, normocephalic ENT: Mouth normal, oropharynx moist, no exudates or tonsillar enlargement Eyes: Conjunctiva normal, pupils equal, lids normal Neck: No JVD, supple, no guarding CVS: Normal rate, regular rhythm, no murmurs Resp: No resp distress, equal and normal breath sounds bilaterally GI: Nondistended, soft, no tenderness to palpation, no rebound or guarding Ext: No deformities, no edema, normal range of motion in upper and lower ext Back: No CVA or midline TTP Skin: No rash, warm Lymphatic: No lymphadeopathy noted Neuro: Awake, alert. Face symmetric. GCS 15. Physical Exam - Vital signs Vitals: Temp Pulse Resp BP Pulse Ox 97.9 F 71 18 127/81 H 100 06/11/20 12:28 06/11/20 12:28 06/11/20 12:28 06/11/20 12:28 06/11/20 12:28 Course - Re-evaluation Re-evalutation: 06/11/20 14:32 Body pain from lupus in setting of chronic pain and polysubstance abuse Skin ulcers which do not appear infected Vitals normal labs are coming back normal. Does not want to be placed and does not meet admission criteria. We agreed on ED pain management but I let her know that I am unable to prescribe controlled substances given her ongoing drug use and she is okay with this. - Vital Signs Vital signs: Temp Pulse Resp BP Pulse Ox 98.3 F 72 18 102/57 L 100 06/11/20 15:30 06/11/20 15:30 06/11/20 15:30 06/11/20 15:30 06/11/20 15:30 - Laboratory Result Diagrams: 06/11/20 13:20 06/11/20 13:20 Laboratory results interpreted by me: 06/11/20 06/11/20 13:20 13:20 Hgb 11.0 L Hct 33.6 L MCH 26.9 L RDW 17.7 H Urine Blood MODERATE H Urine Urobilinogen 2.0 H Ur Leukocyte Esterase TRACE H Discharge - Discharge Clinical Impression: Skin lesions, Polysubstance abuse SLE (systemic lupus erythematosus) Qualifiers: Systemic lupus erythematosus type: other Systemic lupus erythematosus organ involvement: other Qualified Code(s): M32.19 - Other organ or system involvement in systemic lupus erythematosus Condition: Good Disposition: HOME, SELF-CARE Instructions: Chronic Back Pain ([facility]), Chronic Pain Control ([facility]) Additional Instructions: Please follow-up with your primary care provider.
[2020-06-11 15:32] VITALS: BP 102/57
[2020-06-11 15:48] LABS: ALBUMIN 3.9 g/dL (3.5-5.0); ALKALINE PHOSPHATASE 60 U/L (38-126); ANION GAP 10 (5-19); ASPARTATE AMINO TRANSFERASE 33 U/L (14-36); BILIRUBIN,DIRECT 0.2 mg/dL (0.0-0.4); BILIRUBIN,TOTAL 0.4 mg/dL (0.2-1.3); BLOOD UREA NITROGEN 10 mg/dL (7-20); CALCIUM 9.1 mg/dL (8.4-10.2); CARBON DIOXIDE 24 mmol/L (22-30); CHLORIDE 106 mmol/L (98-107); GLUCOSE 83 mg/dL (75-110); POTASSIUM 4.3 mmol/L (3.6-5.0); TOTAL PROTEIN 9.5 g/dL (6.3-8.2)
== END 2020-06-11 15:39 | disposition home or self-care (01) ==
LOC: ER 12:22
DX: M32.10 Systemic lupus erythematosus, organ or system involvement unspecified (principal); L98.499 Non-pressure chronic ulcer of skin of other sites with unspecified severity; G89.29 Other chronic pain; F17.200 Nicotine dependence, unspecified, uncomplicated; F14.10 Cocaine abuse, uncomplicated; I10 Essential (primary) hypertension; Z88.0 Allergy status to penicillin; Z88.1 Allergy status to other antibiotic agents
CPT/HCPCS: 99284; 96374; 36415; 87040; 84702; 83690; 85025; 80053; 81001; 80307; J1170

== ENCOUNTER 2020-10-27 11:36 | Inpatient (IN) | payer MEDICAID ==
[2020-10-27] MEDS ORDERED: VANCOMYCIN HCL 0 MG in DEXTROSE 5%-WATER 250 ML IV NR (11:45)
[2020-10-27] MEDS ORDERED: CLINDAMYCIN 600 MG/D5W RTU 600 MG/50 ML RTUPB IV ONE (11:48)
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
[2020-10-27 12:24] LABS: HEMATOCRIT 28.8 % (36.0-47.0); HEMOGLOBIN 9.5 g/dL (12.0-15.5); MEAN CORPUSCULAR HEMOGLOBIN 25.5 pg (27.0-33.4); MEAN CORPUSCULAR HGB CONC 32.8 g/dL (32.0-36.0); MEAN CORPUSCULAR VOLUME 78 fl (80-97); PLATELET COUNT 275 10^3/uL (150-450); RED BLOOD COUNT 3.71 10^6/uL (3.72-5.28); RED CELL DISTRIBUTION WIDTH 16.6 % (11.5-14.0); WHITE BLOOD COUNT 2.9 10^3/uL (4.0-10.5)
[2020-10-27 12:33] LABS: ALBUMIN 3.7 g/dL (3.5-5.0); ALKALINE PHOSPHATASE 66 U/L (38-126); ANION GAP 6 (5-19); ASPARTATE AMINO TRANSFERASE 48 U/L (14-36); BILIRUBIN,DIRECT 0.3 mg/dL (0.0-0.4); BILIRUBIN,TOTAL 0.4 mg/dL (0.2-1.3); BLOOD UREA NITROGEN 16 mg/dL (7-20); CARBON DIOXIDE 26 mmol/L (22-30); CHLORIDE 106 mmol/L (98-107); GLUCOSE 103 mg/dL (75-110); POTASSIUM 4.1 mmol/L (3.6-5.0); TOTAL PROTEIN 9.5 g/dL (6.3-8.2)
[2020-10-27 12:36] LABS: INTERNATIONAL RATION (INR) 0.96
--- NOTE | 2020-10-27 12:37 | RADIOLOGY REPORT (SQ) ---
EXAM DESCRIPTION: CHEST SINGLE VIEW IMAGES COMPLETED DATE/TIME: 10/27/2020 11:07 am REASON FOR STUDY: 10; SOB COMPARISON: None. EXAM PARAMETERS: NUMBER OF VIEWS: One view. TECHNIQUE: Single frontal radiographic view of the chest acquired. RADIATION DOSE: NA LIMITATIONS: None. FINDINGS: LUNGS AND PLEURA: No opacities, masses or pneumothorax. No pleural effusion. MEDIASTINUM AND HILAR STRUCTURES: No masses. Contour normal. HEART AND VASCULAR STRUCTURES: Heart normal in size. Normal vasculature. BONES: No acute findings. HARDWARE: None in the chest. OTHER: No other significant finding. IMPRESSION: NO ACUTE RADIOGRAPHIC FINDING IN THE CHEST. TECHNICAL DOCUMENTATION: JOB ID: [id number] 2010 [employer]- All Rights Reserved Reading location - IP/workstation name: [id number]
[2020-10-27 12:54] LABS: ABSOLUTE LYMPHOCYTES# (MANUAL) 0.8 10^3/uL (0.5-4.7); ABSOLUTE MONOCYTES # (MANUAL) 0.2 10^3/uL (0.1-1.4); BAND NEUTROPHILS % (MANUAL) 1 % (3-5); BASOPHILS % (MANUAL) 0 % (0-2); EOSINOPHILS % (MANUAL) 0 % (0-6); LYMPHOCYTES % (MANUAL) 28 % (13-45); MONOCYTES % (MANUAL) 8 % (3-13); SEGMENTED NEUTROPHILS % (MAN) 63 % (42-78); TOTAL CELLS COUNTED 100
[2020-10-27 12:55] LABS: ANISOCYTOSIS 1+; HYPOCHROMASIA SLIGHT; PLATELET COMMENT ADEQUATE; TARGET CELLS 2+
[2020-10-27] MEDS ORDERED: FENTANYL CITRATE INJ/PF 100 MCG/2 ML AMPUL IV ONE (14:02)
[2020-10-27] MEDS ORDERED: ONDANSETRON 4 MG TAB.RAPDIS PO PRN (14:23)
[2020-10-27] MEDS ORDERED: IPRATROPIUM/ALBUTEROL 0.5-2.5 MG/3 ML AMPUL NEB PRN (14:23)
[2020-10-27] MEDS ORDERED: MAG HYDROX/AL HYDROX/SIMETH SUSP 30 ML UDCUP PO PRN (14:23)
[2020-10-27] MEDS ORDERED: ACETAMINOPHEN 325 MG TABLET PO PRN (14:23)
[2020-10-27] MEDS ORDERED: TEMAZEPAM 7.5 MG CAPSULE PO PRN (14:23)
[2020-10-27] MEDS ORDERED: ONDANSETRON HCL INJ/PF 4 MG/2 ML SDV IV PRN (14:23)
[2020-10-27] MEDS ORDERED: PROMETHAZINE HCL INJ 25 MG/1 ML VIAL IV PRN (14:23)
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
[2020-10-27 15:22] LABS: APPEARANCE,URINE SLIGHTLY-CLOUDY; BILIRUBIN,URINE SMALL (NEGATIVE); COLOR,URINE AMBER; GLUCOSE, URINE NEGATIVE (NEGATIVE); KETONES,URINE NEGATIVE (NEGATIVE); PROTEIN,URINE 100 mg/dL (NEGATIVE); URINE SPECIFIC GRAVITY 1.034
[2020-10-27 17:45] LABS: C-REACTIVE PROTEIN 53.6 mg/L (<10.0)
[2020-10-27] MEDS ORDERED: BETAMETHASONE VALERATE 0.1% TP ONE (18:00)
[2020-10-27] MEDS: POTASSI CL 20 MEQ/D5-1/2NS 1L 1,000 ML IV PRN (18:07)
[2020-10-27] MEDS: MORPHINE SULFATE 10 MG/ML INJ IV PRN (18:29)
[2020-10-27] MEDS: DOCUSATE SODIUM 100 MG CAPSULE PO SCH (18:42)
[2020-10-27] MEDS ORDERED: HYDROXYCHLOROQUINE SULFATE 200 MG TABLET ONE ×2 (18:50→23:15)
[2020-10-27] MEDS ORDERED: BETAMETHASONE VALERATE 0.1% ONE (18:51)
[2020-10-27] MEDS ORDERED: ERGOCALCIFEROL (VITAMIN D2) 50000 UNIT (1.25 MG) CAPSULE PO ONE ×2 (19:00→23:00)
[2020-10-27] MEDS: HYDROXYCHLOROQUINE SULFATE 200 MG TABLET PO SCH (19:14)
[2020-10-27] MEDS ORDERED: DOXYCYCLINE HYCLATE 100 MG TABLET PO SCH (22:00)
--- NOTE | 2020-10-27 22:39 | EKG REPORT ---
SEVERITY:- ABNORMAL ECG - SINUS RHYTHM CONSIDER ANTEROSEPTAL INFARCT : Confirmed by: Ruy Carranza 27-Oct-2020 22:39:02
[2020-10-27] MEDS: HEPARIN SOD (PORCINE) 5,000 UNIT/ML 1 ML VIAL SUBCUT SCH (22:44)
[2020-10-27] MEDS: CLINDAMYCIN 600 MG/D5W RTU 600 MG/50 ML RTUPB IV SCH (22:44)
[2020-10-27] MEDS: METHYLPREDNISOLONE INJ 125 MG/2 ML SDV IV SCH (22:44)
[2020-10-27] MEDS: FAMOTIDINE 20 MG TABLET PO SCH (22:44)
[2020-10-28] MEDS: MORPHINE SULFATE 10 MG/ML INJ IV PRN ×3 (02:11→20:26)
[2020-10-28] MEDS: HEPARIN SOD (PORCINE) 5,000 UNIT/ML 1 ML VIAL SUBCUT SCH ×3 (06:08→22:13)
[2020-10-28] MEDS: METHYLPREDNISOLONE INJ 125 MG/2 ML SDV IV SCH ×3 (06:08→22:12)
[2020-10-28] MEDS: CLINDAMYCIN 600 MG/D5W RTU 600 MG/50 ML RTUPB IV SCH ×3 (06:08→22:13)
[2020-10-28 06:46] LABS: ABSOLUTE LYMPHOCYTES (AUTO) 0.5 10^3/uL (0.5-4.7); ABSOLUTE MONOCYTES (AUTO) 0.1 10^3/uL (0.1-1.4); ABSOLUTE NEUT (AUTO) 2.3 10^3/uL (1.7-8.2); BASOPHILS % (AUTO) 0.2 % (0-2); HEMATOCRIT 27.9 % (36.0-47.0); HEMOGLOBIN 8.9 g/dL (12.0-15.5); MEAN CORPUSCULAR HEMOGLOBIN 25.2 pg (27.0-33.4); MEAN CORPUSCULAR VOLUME 79 fl (80-97); MONOCYTES % (AUTO) 2.7 % (3-13); PLATELET COUNT 242 10^3/uL (150-450); RED BLOOD COUNT 3.55 10^6/uL (3.72-5.28); RED CELL DISTRIBUTION WIDTH 16.7 % (11.5-14.0); SEGMENTED NEUTROPHILS % (AUTO) 80.1 % (42-78); TOTAL CELLS COUNTED % (AUTO) 100 %; WHITE BLOOD COUNT 2.9 10^3/uL (4.0-10.5)
[2020-10-28 07:26] LABS: ALBUMIN 3.3 g/dL (3.5-5.0); ALKALINE PHOSPHATASE 50 U/L (38-126); ANION GAP 9 (5-19); ASPARTATE AMINO TRANSFERASE 29 U/L (14-36); BILIRUBIN,DIRECT 0.2 mg/dL (0.0-0.4); BILIRUBIN,TOTAL 0.3 mg/dL (0.2-1.3); BLOOD UREA NITROGEN 9 mg/dL (7-20); CALCIUM 8.3 mg/dL (8.4-10.2); CARBON DIOXIDE 24 mmol/L (22-30); CHLORIDE 102 mmol/L (98-107); GLUCOSE 177 mg/dL (75-110); POTASSIUM 4.4 mmol/L (3.6-5.0); TOTAL PROTEIN 8.6 g/dL (6.3-8.2)
[2020-10-28] MEDS ORDERED: MAGNESIUM SULFATE/D5W 1 GM/100 ML RTUPB IV ONE (08:00)
[2020-10-28] MEDS ORDERED: INFLUENZA QUAD (6MOS+) 2020-21 VAC 0.5 ML SYR IM ONE (08:00)
[2020-10-28] MEDS: FAMOTIDINE 20 MG TABLET PO SCH ×2 (10:15→22:13)
[2020-10-28] MEDS: HYDROXYCHLOROQUINE SULFATE 200 MG TABLET PO SCH ×2 (10:15→19:22)
[2020-10-28] MEDS: DOCUSATE SODIUM 100 MG CAPSULE PO SCH ×2 (10:16→18:00)
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
[2020-10-28] MEDS ORDERED: ONDANSETRON 4 MG TAB.RAPDIS PO PRN (11:00)
[2020-10-28] MEDS ORDERED: ONDANSETRON HCL INJ/PF 4 MG/2 ML SDV IV PRN (11:00)
[2020-10-28] MEDS ORDERED: PROMETHAZINE HCL INJ 25 MG/1 ML VIAL IV PRN ×2 (11:00)
[2020-10-28] MEDS: POTASSI CL 20 MEQ/D5-1/2NS 1L 1,000 ML IV PRN (17:09)
[2020-10-29] MEDS: MORPHINE SULFATE 10 MG/ML INJ IV PRN ×5 (00:46→23:03)
[2020-10-29] MEDS: HEPARIN SOD (PORCINE) 5,000 UNIT/ML 1 ML VIAL SUBCUT SCH ×3 (05:28→21:50)
[2020-10-29] MEDS: METHYLPREDNISOLONE INJ 125 MG/2 ML SDV IV SCH ×3 (05:29→21:49)
[2020-10-29] MEDS: CLINDAMYCIN 600 MG/D5W RTU 600 MG/50 ML RTUPB IV SCH ×3 (05:29→21:50)
[2020-10-29] MEDS: POTASSI CL 20 MEQ/D5-1/2NS 1L 1,000 ML IV PRN (05:30)
[2020-10-29 05:31] LABS: HEMATOCRIT 26.8 % (36.0-47.0); HEMOGLOBIN 8.7 g/dL (12.0-15.5); MEAN CORPUSCULAR HEMOGLOBIN 25.2 pg (27.0-33.4); MEAN CORPUSCULAR HGB CONC 32.5 g/dL (32.0-36.0); MEAN CORPUSCULAR VOLUME 78 fl (80-97); PLATELET COUNT 246 10^3/uL (150-450); RED BLOOD COUNT 3.44 10^6/uL (3.72-5.28); RED CELL DISTRIBUTION WIDTH 16.6 % (11.5-14.0); WHITE BLOOD COUNT 4.5 10^3/uL (4.0-10.5)
[2020-10-29 06:03] LABS: ANION GAP 5 (5-19); BLOOD UREA NITROGEN 17 mg/dL (7-20); CALCIUM 8.8 mg/dL (8.4-10.2); CARBON DIOXIDE 27 mmol/L (22-30); CHLORIDE 105 mmol/L (98-107); GLUCOSE 130 mg/dL (75-110)
[2020-10-29 07:38] LABS: COMPLEMENT C4 7 mg/dL (12-38)
[2020-10-29 07:55] LABS: COMPLEMENT C3 67 mg/dL (82-167)
[2020-10-29] MEDS: ACETAMINOPHEN 325 MG TABLET PO SCH ×3 (09:03→17:37)
[2020-10-29] MEDS: HYDROXYCHLOROQUINE SULFATE 200 MG TABLET PO SCH ×2 (09:04→17:37)
[2020-10-29] MEDS: OXYCODONE HCL IR 5 MG TABLET PO PRN ×3 (09:04→21:47)
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
[2020-10-30] MEDS: MORPHINE SULFATE 10 MG/ML INJ IV PRN ×5 (04:14→23:42)
[2020-10-30] MEDS: METHYLPREDNISOLONE INJ 125 MG/2 ML SDV IV SCH ×2 (05:39→14:43)
[2020-10-30] MEDS: CLINDAMYCIN 600 MG/D5W RTU 600 MG/50 ML RTUPB IV SCH ×3 (05:40→21:08)
[2020-10-30 05:42] LABS: HEMATOCRIT 25.1 % (36.0-47.0); HEMOGLOBIN 8.2 g/dL (12.0-15.5); MEAN CORPUSCULAR HEMOGLOBIN 25.5 pg (27.0-33.4); MEAN CORPUSCULAR HGB CONC 32.8 g/dL (32.0-36.0); MEAN CORPUSCULAR VOLUME 78 fl (80-97); PLATELET COUNT 313 10^3/uL (150-450); RED BLOOD COUNT 3.22 10^6/uL (3.72-5.28); RED CELL DISTRIBUTION WIDTH 17.3 % (11.5-14.0); WHITE BLOOD COUNT 6.4 10^3/uL (4.0-10.5)
[2020-10-30] MEDS: HEPARIN SOD (PORCINE) 5,000 UNIT/ML 1 ML VIAL SUBCUT SCH ×3 (05:54→21:10)
[2020-10-30 05:55] LABS: ANION GAP 5 (5-19); BLOOD UREA NITROGEN 18 mg/dL (7-20); CALCIUM 8.9 mg/dL (8.4-10.2); CARBON DIOXIDE 26 mmol/L (22-30); CHLORIDE 103 mmol/L (98-107); GLUCOSE 146 mg/dL (75-110); POTASSIUM 4.4 mmol/L (3.6-5.0)
[2020-10-30] MEDS: ACETAMINOPHEN 325 MG TABLET PO SCH ×3 (09:00→17:39)
[2020-10-30] MEDS: HYDROXYCHLOROQUINE SULFATE 200 MG TABLET PO SCH ×2 (09:51→17:39)
[2020-10-30] MEDS ORDERED: LORAZEPAM INJ 2 MG/1 ML VIAL IV PRN (15:10)
[2020-10-30] MEDS ORDERED: LORAZEPAM INJ 2 MG/1 ML VIAL ONE (15:12)
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
[2020-10-30] MEDS: OXYCODONE HCL IR 5 MG TABLET PO PRN (21:28)
[2020-10-31] MEDS: MAGNESIUM SULFATE/D5W 1 GM/100 ML RTUPB IV SCH ×4 (01:31→02:36)
[2020-10-31] MEDS: OXYCODONE HCL IR 5 MG TABLET PO PRN ×4 (02:41→21:16)
[2020-10-31 05:50] LABS: HEMOGLOBIN 8.4 g/dL (12.0-15.5); MEAN CORPUSCULAR HGB CONC 33.5 g/dL (32.0-36.0); MEAN CORPUSCULAR VOLUME 78 fl (80-97); PLATELET COUNT 353 10^3/uL (150-450); RED BLOOD COUNT 3.22 10^6/uL (3.72-5.28); RED CELL DISTRIBUTION WIDTH 17.1 % (11.5-14.0); WHITE BLOOD COUNT 8.3 10^3/uL (4.0-10.5)
[2020-10-31] MEDS: HEPARIN SOD (PORCINE) 5,000 UNIT/ML 1 ML VIAL SUBCUT SCH (06:07)
[2020-10-31] MEDS: CLINDAMYCIN 600 MG/D5W RTU 600 MG/50 ML RTUPB IV SCH ×3 (06:10→21:15)
[2020-10-31 06:14] LABS: ANION GAP 6 (5-19); BLOOD UREA NITROGEN 22 mg/dL (7-20); CALCIUM 8.9 mg/dL (8.4-10.2); CARBON DIOXIDE 29 mmol/L (22-30); CHLORIDE 100 mmol/L (98-107); GLUCOSE 83 mg/dL (75-110); POTASSIUM 4.8 mmol/L (3.6-5.0)
[2020-10-31] MEDS: PREDNISONE 20 MG TABLET PO SCH (07:59)
[2020-10-31] MEDS: ACETAMINOPHEN 325 MG TABLET PO SCH ×3 (09:48→17:16)
[2020-10-31] MEDS: ENOXAPARIN SODIUM INJ 30 MG/0.3 ML DISP.SYRIN SUBCUT SCH (09:48)
[2020-10-31] MEDS: NORMAL SALINE 1000 ML 1,000 ML IV PRN (09:48)
[2020-10-31] MEDS: HYDROXYCHLOROQUINE SULFATE 200 MG TABLET PO SCH ×2 (09:48→17:15)
[2020-10-31] MEDS: MORPHINE SULFATE 10 MG/ML INJ IV PRN ×3 (09:56→23:16)
--- NOTE | 2020-10-31 13:37 | PDOC CONSULTATION ---
Consultation-Blank Consultation: Reason for Consult: Capacity Patient arrived to [facility] ems with concerns of skin wounds. Patient has a long documented history of noncompliance with treatment for her medical conditions and substance abuse. Patient is an IV drug user with cocaine and is diagnosed with lupus, Starkey-Ruddy syndrome, anemia, vasculitis, hypertension, chronic kidney disease and has bilateral lower extremity amputations. There is documentation indicating the patient disclosed ongoing family discord; at times patient would be living with family and other times she would be homeless. Patient is fully orientated and while she thought it was possibly the 11th or 12th glanced at board in her room and saw that it was the 13th. She was able to correctly identify that it was WednesdayOctober 2020. Patient was able to correctly identify her birthday and that the 10th month is July. Patient is aware of her current location at [facility] in [facility]. She was able to discuss current affairs in connection to politics and the president elections/inauguration. Patient is unable to take care of all of her needs her own due to being unable to stand or walk however states she can dress bathe and eat on her own. Patient was able to provide some medications that she has been prescribed such as prednisone, high blood pressure medication, gabapentin for "nerves" and Prozac for "anxiety and emotions." patient reports she has mental health diagnosis of "anxiety and being stressed out." Impression/Plan: While patient has many lifestyle choices that are concerning and impacts her medical status, she maintains capacity. It appears her abstraction skills are impaired in connection to context and presentation.When asking abstract questions, it is noted the patient becomes confused but when asking the questions in a more concrete manor,with slow simple language, the patient can easily and appropriately answer. She is fully orientated and able to appropriately engage in current affairs conversations. This presentation is similar to someone with traumatic brain injury in the frontal lobe (for clarification there is not current evidence of such for this patient) which results in poor decision making, poor insight, judgment and impulse control with the need of instant gratification. Dr. Mcclellan was consulted on the care and management of this patient' attending physician is in agreement with recommendations and disposition.
[2020-10-31] MEDS ORDERED: FLUCONAZOLE 100 MG TABLET PO ONE (14:00)
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
[2020-10-31] MEDS: DIPHENHYDRAMINE HCL 25 MG CAPSULE PO PRN ×2 (17:15→23:18)
[2020-10-31] MEDS ORDERED: CALCIUM CARBONATE 500 MG TAB.CHEW PO PRN (22:58)
[2020-11-01] MEDS: CLINDAMYCIN 600 MG/D5W RTU 600 MG/50 ML RTUPB IV SCH ×2 (06:40→16:14)
[2020-11-01] MEDS: NORMAL SALINE 1000 ML 1,000 ML IV PRN (06:41)
[2020-11-01] MEDS: MORPHINE SULFATE 10 MG/ML INJ IV PRN (06:47)
[2020-11-01 07:24] LABS: HEMATOCRIT 25.7 % (36.0-47.0); HEMOGLOBIN 8.5 g/dL (12.0-15.5); MEAN CORPUSCULAR HEMOGLOBIN 25.5 pg (27.0-33.4); MEAN CORPUSCULAR HGB CONC 33.1 g/dL (32.0-36.0); MEAN CORPUSCULAR VOLUME 77 fl (80-97); PLATELET COUNT 316 10^3/uL (150-450); RED BLOOD COUNT 3.34 10^6/uL (3.72-5.28); RED CELL DISTRIBUTION WIDTH 17.1 % (11.5-14.0); WHITE BLOOD COUNT 8.7 10^3/uL (4.0-10.5)
[2020-11-01 07:50] LABS: ANION GAP 5 (5-19); BLOOD UREA NITROGEN 24 mg/dL (7-20); CARBON DIOXIDE 32 mmol/L (22-30); CHLORIDE 96 mmol/L (98-107); GLUCOSE 78 mg/dL (75-110); POTASSIUM 5.2 mmol/L (3.6-5.0)
[2020-11-01] MEDS ORDERED: CALCIUM CARBONATE 500 MG TAB.CHEW PO PRN (08:07)
[2020-11-01] MEDS ORDERED: LACTULOSE SYRUP 20 GM/30 ML UDCUP PO ONE (08:13)
[2020-11-01] MEDS ORDERED: SODIUM POLYSTYRENE SULFONATE 15 GM/60 ML PO ONE (08:13)
[2020-11-01] MEDS: ACETAMINOPHEN 325 MG TABLET PO SCH ×2 (09:25→16:13)
[2020-11-01] MEDS: HYDROXYCHLOROQUINE SULFATE 200 MG TABLET PO SCH (09:25)
[2020-11-01] MEDS: PREDNISONE 20 MG TABLET PO SCH (09:26)
[2020-11-01] MEDS: ENOXAPARIN SODIUM INJ 30 MG/0.3 ML DISP.SYRIN SUBCUT SCH (09:26)
[2020-11-01 12:26] VITALS: BP 122/71
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
== END 2020-11-01 18:15 | disposition home health service (06) | DRG 546 ==
LOC: ER 11:36 → EH 13:25 → 4N 17:34
PROVIDERS: ADMIT Internal Medicine; ATTEND Hospitalist
DX: M32.9 Systemic lupus erythematosus, unspecified (principal); E44.0 Moderate protein-calorie malnutrition; L03.314 Cellulitis of groin; T74.01XA Adult neglect or abandonment, confirmed, initial encounter; L51.1 Stevens-Johnson syndrome; Z68.1 Body mass index [BMI] 19.9 or less, adult; T14.8XXA Other injury of unspecified body region, initial encounter; X58.XXXA Exposure to other specified factors, initial encounter; I10 Essential (primary) hypertension; I77.6 Arteritis, unspecified; K21.9 Gastro-esophageal reflux disease without esophagitis; D72.810 Lymphocytopenia; D63.8 Anemia in other chronic diseases classified elsewhere; F17.210 Nicotine dependence, cigarettes, uncomplicated; F14.10 Cocaine abuse, uncomplicated; E86.0 Dehydration; Z89.611 Acquired absence of right leg above knee; Z89.612 Acquired absence of left leg above knee; Z88.0 Allergy status to penicillin; Z88.2 Allergy status to sulfonamides; Z88.1 Allergy status to other antibiotic agents; Z89.029 Acquired absence of unspecified finger(s); Z20.828 Contact with and (suspected) exposure to other viral communicable diseases; Z91.19 Patient's noncompliance with other medical treatment and regimen; Z23 Encounter for immunization
CPT/HCPCS: 36415; 71045; 80048; 80053; 81001; 81025; 82306; 83605; 83735; 84484; 85025; 85027; 85610; 85652; 86140; 86160; 86225; 86431; 86701; 87040; 93005; 93010; 96374; 99285; 0241U; C9803; J1644; J2060; J2270; J2930; J3010; J3475; J3480; J3490; J7030; J7512; S0119